=== PATIENT | male | born 1980 | race Caucasian/White ===

== ENCOUNTER 2017-08-01 23:03 | Emergency (ER) | payer SELFPAY ==
[2017-08-01 23:52] LABS: #Basophils 0.2 thou/uL (0.0-0.2); #Eosinphils 0.5 thou/uL (0.0-0.7); #Lymphocytes 3.5 thou/uL (1.20-3.40); #Monocytes 0.6 thou/uL (0.11-0.59); #Neutrophils 7.9 thou/uL (1.40-6.50); %Basophils 1.3 % (0.0-1.0); %Eosinophils 3.8 % (0.0-10.0); %Lymphocytes 27.5 % (21.0-51.0); %Monocytes 4.5 % (0.0-10.0); Mean Platelet Volume 7.5 fL (7.4-10.4); Red Blood Cell (RBC) Count 4.87 mill/uL (4.70-6.10); White Blood Cell (WBC) Count 12.6 thou/uL (4.8-10.8)
[2017-08-02 00:01] LABS: Bilirubin Negative (Negative); Blood, Urine Negative (Negative); Glucose, Urine (Dipstick) Negative (Negative); Ketone, Urine Negative (Negative); Nitrite Negative (Negative); Protein, Urine (Dipstick) Negative (Neg-Trace); Urobilinogen 0.2 mg/dL (0.2-1.0)
[2017-08-02 00:08] LABS: ALT (SGPT) 42 U/L (8-55); AST (SGOT) 29 U/L (5-34); Alkaline Phosphatase 73 U/L (40-150); Anion Gap 15 mmol/L (10-20); BUN (Urea Nitrogen) 7 mg/dL (8.9-20.6); Bilirubin, Total 0.4 mg/dL (0.2-1.2); Calc. Creatinine Clearance 0 mL/min (70-130); Calcium 9.1 mg/dL (7.8-10.44); Carbon Dioxide 24 mmol/L (22-29); Chloride 101 mmol/L (98-107); Estimated GFR-MDRD Greater than 90; Globulin 3.4 g/dL (2.4-3.5); Lipase 20 U/L (8-78); Protein, Total 7.5 g/dL (6.0-8.3)
[2017-08-02] MEDS ORDERED: Ketorolac Tromethamine 30 MG/ML VIAL ONE (00:30)
--- NOTE | 2017-08-02 00:39 | CT ---
CT ABDOMEN AND PELVIS WITHOUT CONTRAST 08/01/17 HISTORY: Abdominal pain, diarrhea. FINDINGS: Absence of oral and IV contrast reduces the sensitivity for the exam, particularly for evaluation of the solid organs and bowel. There are ground glass infiltrates in the lung bases. There is fatty in filtration of the liver. No calcified gallstones are seen. A small fat containing umbilical hernia i s present. No free air or free fluid is seen in the abdomen or pelvis. A normal appearing appendix i s present. There is fecal material in the colon. No calculi is seen in the kidneys, ureters, or the urinary bladder. No hydroureteronephrosis is note d on either side. There are vascular calcifications without evidence of aneurysmal dilatation of the abdominal aorta. There are mild degenerative changes in the spine. IMPRESSION: 1. No CT evidence of urinary tract calculi or obstruction/appendicitis. 2. Fatty liver. 3. Ground glass infiltrates in the lung bases. POS: [facility]
== END 2017-08-02 00:35 | disposition home or self-care (01) ==
LOC: SCSER 23:03
DX: R10.11 Right upper quadrant pain (principal); E11.9 Type 2 diabetes mellitus without complications; G40.909 Epilepsy, unspecified, not intractable, without status epilepticus; F32.9 Major depressive disorder, single episode, unspecified; F17.210 Nicotine dependence, cigarettes, uncomplicated; Z79.899 Other long term (current) drug therapy
CPT/HCPCS: 74176; 80053; 81003; 83690; 85025; 96372; J1885

== ENCOUNTER 2017-09-20 15:04 | Emergency (ER) | payer SELFPAY ==
[2017-09-20] MEDS ORDERED: Ondansetron HCl/PF 4 MG/2 ML Vial ONE (15:48)
[2017-09-20] MEDS ORDERED: Morphine 4 MG/ML Carpuject ONE (15:48)
[2017-09-20 15:52] LABS: #Basophils 0.2 thou/uL (0.0-0.2); #Eosinphils 0.7 thou/uL (0.0-0.7); #Monocytes 0.7 thou/uL (0.11-0.59); #Neutrophils 5.3 thou/uL (1.40-6.50); %Basophils 1.9 % (0.0-1.0); %Eosinophils 7.3 % (0.0-10.0); %Lymphocytes 30.2 % (21.0-51.0); Hematocrit 43.2 % (42.0-52.0); Mean Platelet Volume 11.3 fL (7.4-10.4); Red Blood Cell (RBC) Count 4.73 mill/uL (4.70-6.10); White Blood Cell (WBC) Count 9.8 thou/uL (4.8-10.8)
--- NOTE | 2017-09-20 16:03 | RAD ---
PA AND LATERAL OF THE CHEST 09/20/17 INDICATION: Left sided chest pain. Cough. FINDINGS: There is stable cardiomegaly. No air space consolidation or pleural effusion is evident. Osseous stru ctures appear similar to the comparison dated 06/27/17. IMPRESSION: Stable mild cardiomegaly. POS: [facility]
[2017-09-20 16:04] LABS: Troponin I Less than 0.010 ng/mL (< 0.028)
[2017-09-20] MEDS ORDERED: Ketorolac Tromethamine 30 MG/ML VIAL ONE (16:16)
[2017-09-20 16:21] LABS: ALT (SGPT) 44 U/L (8-55); AST (SGOT) 28 U/L (5-34); Alkaline Phosphatase 70 U/L (40-150); Anion Gap 15 mmol/L (10-20); BUN (Urea Nitrogen) 13 mg/dL (8.9-20.6); Bilirubin, Total 0.2 mg/dL (0.2-1.2); Calc. Creatinine Clearance 0 mL/min (70-130); Calcium 9.6 mg/dL (7.8-10.44); Carbon Dioxide 20 mmol/L (22-29); Chloride 107 mmol/L (98-107); Estimated GFR-MDRD Greater than 90; Globulin 3.5 g/dL (2.4-3.5); Protein, Total 7.5 g/dL (6.0-8.3)
== END 2017-09-20 16:40 | disposition home or self-care (01) ==
LOC: SCSER 15:04
DX: R07.89 Other chest pain (principal); E11.9 Type 2 diabetes mellitus without complications; G40.909 Epilepsy, unspecified, not intractable, without status epilepticus; F32.9 Major depressive disorder, single episode, unspecified; F17.210 Nicotine dependence, cigarettes, uncomplicated; K56.609 Unspecified intestinal obstruction, unspecified as to partial versus complete obstruction
CPT/HCPCS: 71020; 80053; 82553; 84484; 85025; 93005; 96374; 96375; 99406; J1885; J2270; J2405

== ENCOUNTER 2017-10-25 03:30 | Observation (INO) | payer SELFPAY ==
[2017-10-25] MEDS ORDERED: Ketorolac Tromethamine 30 MG/ML VIAL ONE (03:52)
[2017-10-25] MEDS ORDERED: Ondansetron HCl/PF 4 MG/2 ML Vial ONE (03:52)
[2017-10-25 04:17] LABS: #Basophils 0.2 thou/uL (0.0-0.2); #Eosinphils 0.6 thou/uL (0.0-0.7); #Lymphocytes 3.7 thou/uL (1.20-3.40); #Monocytes 1.1 thou/uL (0.11-0.59); #Neutrophils 8.2 thou/uL (1.40-6.50); %Basophils 1.6 % (0.0-1.0); %Eosinophils 4.4 % (0.0-10.0); %Lymphocytes 26.8 % (21.0-51.0); %Neutrophils 59.2 % (42.0-75.0); Hemoglobin 15.5 g/dL (14.0-18.0); Mean Corpuscular Hemoglobin 31.6 pg (27.0-31.0); Mean Corpuscular Volume 95.8 fl (80.0-94.0); Platelet Count 298 thou/uL (130-400); RBC Distribution Width 12.1 % (11.5-14.5); Red Blood Cell (RBC) Count 4.92 mill/uL (4.70-6.10); White Blood Cell (WBC) Count 13.8 thou/uL (4.8-10.8)
[2017-10-25 04:20] LABS: Bilirubin Negative (Negative); Blood, Urine Negative (Negative); Clarity Clear (Clear); Glucose, Urine (Dipstick) Negative (Negative); Leukocyte Trace (Negative); Nitrite Negative (Negative); Protein, Urine (Dipstick) Negative (Neg-Trace); Urobilinogen 0.2 mg/dL (0.2-1.0)
[2017-10-25 04:23] LABS: ALT (SGPT) 39 U/L (8-55); AST (SGOT) 22 U/L (5-34); Albumin 4.1 g/dL (3.5-5.0); Alkaline Phosphatase 66 U/L (40-150); Anion Gap 16 mmol/L (10-20); BUN (Urea Nitrogen) 8 mg/dL (8.9-20.6); Bilirubin, Total 0.2 mg/dL (0.2-1.2); Calc. Creatinine Clearance 0 mL/min (70-130); Calcium 9.2 mg/dL (7.8-10.44); Carbon Dioxide 21 mmol/L (22-29); Chloride 105 mmol/L (98-107); Estimated GFR-MDRD Greater than 90; Globulin 3.3 g/dL (2.4-3.5); Glucose 126 mg/dL (70-105); Potassium 3.5 mmol/L (3.5-5.1); Protein, Total 7.4 g/dL (6.0-8.3); Sodium 138 mmol/L (136-145)
[2017-10-25 04:28] LABS: Bacteria/HPF None Seen HPF (None Seen); Hyaline Casts/LPF 0-3 HYALINE CAST LPF (0-3 Hyaline); RBC/HPF 0-3 HPF (0-3); Squamous Epithelial 0-3 HPF (0-3); WBC/HPF 0-3 HPF (0-3)
[2017-10-25] MEDS ORDERED: Morphine 4 MG/ML Carpuject ONE (04:52)
[2017-10-25] MEDS ORDERED: cefTRIAXone\\ROCEPHIN 2 GM VIAL ONE (05:11)
[2017-10-25] MEDS ORDERED: Sodium Chloride 0.9% 0 ML ONE (05:12)
[2017-10-25] MEDS ORDERED: Sodium Chloride 0.9% 100 ML ONE (05:15)
[2017-10-25 06:30] VITALS: BMI 41.2
[2017-10-25] MEDS ORDERED: Sodium Chloride 0.9% 1,000 ML IV SCH (06:30)
[2017-10-25] MEDS ORDERED: Ondansetron ODT 4 MG TAB SL PRN (06:30)
[2017-10-25] MEDS ORDERED: HYDROcodone/Acetaminophen 5/325 mg Tablet PO PRN ×2 (06:30)
[2017-10-25] MEDS ORDERED: Ondansetron HCl/PF 4 MG/2 ML Vial IVP PRN ×2 (06:30→08:07)
[2017-10-25] MEDS ORDERED: Acetaminophen 325 MG TAB PO PRN ×2 (06:30→08:07)
[2017-10-25 08:07] LABS: Lactic Acid 1.7 mmol/L (0.5-2.2)
[2017-10-25] MEDS ORDERED: Dextrose 5% in Water 1,000 ML IV PRN (08:07)
[2017-10-25] MEDS ORDERED: HYDROcodone/Acetaminophen 10/325 mg Tablet PO PRN (08:07)
[2017-10-25] MEDS ORDERED: Ondansetron ODT 4 MG TAB PO PRN (08:07)
[2017-10-25] MEDS ORDERED: Dextrose 50% Abboject 50 ML SYRINGE SLOW IVP PRN (08:07)
[2017-10-25] MEDS ORDERED: HumaLOG 300 UNITS/3 ML VIAL SC PRN (08:07)
[2017-10-25] MEDS ORDERED: Enoxaparin Sodium 40 MG/0.4 ML SYRINGE SC SCH (08:30)
[2017-10-25] MEDS ORDERED: Famotidine 20 MG TAB PO SCH (09:00)
[2017-10-25] MEDS: Sodium Chloride 0.9% 1,000 ML IV SCH ×2 (09:08→16:26)
[2017-10-25] MEDS: HYDROcodone/Acetaminophen 5/325 mg Tablet PO PRN ×2 (09:08→13:10)
--- NOTE | 2017-10-25 10:35 | ULT ---
BILATERAL RENAL ULTRASOUND: History: CVA tenderness. History of stones. Diagnosed with pyelonephritis. Date: 10-25-17 Technique: Multiple longitudinal and transverse images of the kidneys and bladder obtained using a mu ltihertz curvilinear transducer. FINDINGS: Real-time and color flow images demonstrate both kidneys to be of normal contour, axis and side. Righ t kidney measures 11.3 and 12.2 cm from [id number]. No evidence of renal parenchymal masses or lesi ons seen. No evidence of hydronephrosis seen. The bladder is unremarkable. Bladder volume has 3D reggie urements of 68 ml. IMPRESSION: Normal renal ultrasound. No evidence of hydronephrosis or renal mass. POS: [facility]
--- NOTE | 2017-10-25 16:51 | DIS ---
DATE OF ADMISSION: 10/25/2017 DATE OF DISCHARGE: 10/25/2017 PRIMARY CARE PHYSICIAN: Arely Wall M.D. DISCHARGE DIAGNOSES: 1. Paraspinous muscle spasm. 2. History of renal stones, but no current stones visualized. 3. Diabetes mellitus type 2, insulin-dependent. 4. History of pseudoseizures. 5. Depression/anxiety with history of panic attacks. CONSULTATIONS: None. PROCEDURES: Renal ultrasound done on 10/25/2017 had showed normal kidneys, no obstruction, no sign o f stones. HISTORY AND PHYSICAL: Mr. Batres is a 36-year-old gentleman, transferred here from [facility] for direct admission for pyelonephritis. Workup there showed an elevated white count and lac tic acid 3.1. The patient had some bilateral flank pain and anorexia, not eating or drinking well. HOSPITAL COURSE: The patient was seen and examined on arrival. He had some right paraspinous muscle tenderness to palpation, but no CVA tenderness farther out. Urinalysis review was negative. The re nal ultrasound was obtained that showed normal kidneys, no hydronephrosis, and no evidence of stones. He had a fully empty bladder. The patient was watched the day. His pain was well controlled. He was tolerating p.o. well and was ambulating in the hallways. Nursing was otherwise stable for discharge with outpatient followup. PHYSICAL EXAMINATION: The patient was seen and examined on the day of discharge. Discharge plan and disposition were discussed with the patient [id number] at the bedside. DISCHARGE MEDICATIONS: 1. Albuterol MDI 2 puffs q.6 hours as needed. 2. Quetiapine as taken at home. 3. Albuterol nebs p.r.n. 4. Klonopin 0.25 mg daily p.r.n. 5. Hydroxyzine 50 mg p.o. t.i.d. p.r.n. DISCHARGE CONDITION: Stable. DISPOSITION: Will be discharged home via private vehicle. FOLLOWUP APPOINTMENTS: Primary care physician Dr. Wall within a week. DISCHARGE ACTIVITY: As tolerated. DISCHARGE DIET: Diabetic diet recommended.
[2017-10-25 16:52] VITALS: BP 117/81; TEMP 98.3
--- NOTE | 2017-10-25 19:48 | HP ---
PRIMARY CARE PHYSICIAN: Dr. Arely Wall. CHIEF COMPLAINT: Dysuria and gland swelling. HISTORY OF PRESENT ILLNESS: Mr. Batres is a 36-year-old white male with history of diabetes, seizure disorder, that has been further identify the pseudoseizures/conversion, panic attacks, depression/an xiety, and renal stones with his last done about 8 months ago. He presented to the Emergency Department at the [facility] ER for complaints of hematuria, increased frequency, dysuria, and bilateral flank pain. This symptoms started about 2 weeks ago. He saw his PCP was started on antibiotic about 6 days ago, but had increased symptoms. He started having aching in his back with abdominal pain and chills, whe n further delineated seemed to be occasional shutter, but no rigors. Complaining of bilateral flank pain right more than left with tenderness and decreased appetite, who presents to the Emergency Depar tment for evaluation. There, white blood cell count was 13.8 with a fairly normal differential. Chemistries are normal. U rinalysis negative. The lactic acid 3.1. No imaging was done and he was transferred here for a clin ical diagnosis of pyelonephritis. Since arrival here, he has had no fevers. PAST MEDICAL HISTORY: 1. Diabetes mellitus type 2. 2. Seizure disorder/pseudoseizures and no true seizures. 3. Panic attacks. 4. Depression/anxiety. 5. Renal stones. PAST SURGICAL HISTORY: Left arm repair. HOME MEDICATIONS: 1. Albuterol MDI 2 puffs q.6 hours p.r.n. 2. Quetiapine prescribed 300 mg p.o. at bedtime and 50 mg p.o. q.a.m., he just takes 350 once a day. 2. Albuterol nebs as needed. 3. Klonopin 0.25 mg p.o. daily as needed for anxiety. 4. Hydroxyzine 50 mg p.o. t.i.d. p.r.n. itching. ALLERGIES: PENICILLIN cause rash, IODINE via CT contrast causes massive edema, and SHELLFISH causes facial swelling. FAMILY HISTORY: Negative for clotting or bleeding disorder, no immune dysfunction. SOCIAL HISTORY: Negative for alcohol or IV drugs. Does smoke about a pack per day from the last 25 years. REVIEW OF SYSTEMS: A 10-point review of systems was performed, negative for other systems except ana cristina t as per HPI. PHYSICAL EXAMINATION: VITAL SIGNS: Temperature 98.0, pulse 98 initially 124 on arrival to the ER. Blood pressure 124/81, respiratory 18, satting 98% on room air. GENERAL: He is awake. He is alert. He is oriented x3. He is a slightly obese white male, appears to be in no acute distress. HEENT: Normocephalic, atraumatic. Pupils are equal, round, reactive to light bilaterally, mucous me mbrane moist. He had no visible lesions. No thrush. NECK: Supple, without lymphadenopathy, JVD, or thyromegaly. He has normal carotid upstrokes without bruits. LUNGS: Clear. No wheezes, no rales, no rhonchi. Good air movement. Excellent chest excursion. No prolonged expiratory phase. CARDIOVASCULAR: Normal S1 and S2. No S3 or S4. No audible murmurs. ABDOMEN: He does have CVA tenderness to light palpation. Certainly more on the right paraspinous ar ea than the left and not farther out. EXTREMITIES: No cyanosis, no clubbing, no edema. 2+ peripheral pulses, dorsalis pedis and posterior tibial arteries. SKIN: Warm, moist, and well-perfused. No rash or lesions. NEUROLOGIC: Shows cranial nerves II through XII grossly intact. He has normal speech pattern, 5/5 s trength. No focal deficits. MUSCULOSKELETAL: Normal to inspection. He has no spinal tenderness. No inflammation of the large j oints and no palpable effusions. LABORATORY DATA: CMP is completely normal. Creatinine 0.86, sodium 138, potassium 3.5, BUN of 8, gl ucose of 126. The liver function completely normal. CBC showed a white count of 13.8, hemoglobin 15.5, hematocrit 47.1, platelet count 298,000. Urinalys is negative for UTI. Lactic acid 3.1 on presentation, 1.7 on recheck on arrival. RADIOGRAPHIC STUDIES: Ultrasound of the kidneys has been ordered. ASSESSMENT AND PLAN: 1. Right flank pain, I doubt this is a urinary tract infection with a negative urine unless he has g ot an obstructive uropathy. He did have a history of stones. We will get an ultrasound to rule out obstruction or hydronephrosis. Renal function at this point is normal. We will give him intravenous fluids for now. He is eating a diet right now without any difficulty. If studies were negative, we will likely let him go home later this afternoon. 2. Diabetes mellitus type 2. We will continue home medications, sliding scale insulin. 3. History of pseudoseizures. 4. History of panic attacks/anxiety on Klonopin will continue. 5. History of renal stones as above.
== END 2017-10-25 17:00 | disposition home or self-care (01) ==
LOC: SCSER 03:30 → INTOOBSV 05:47 → T4-A 05:47
PROVIDERS: ADMIT Internal Medicine; ATTEND Internal Medicine
DX: M62.838 Other muscle spasm (principal); E11.9 Type 2 diabetes mellitus without complications; F32.9 Major depressive disorder, single episode, unspecified; F41.9 Anxiety disorder, unspecified; F41.0 Panic disorder [episodic paroxysmal anxiety]; G40.89 Other seizures; R30.0 Dysuria; F17.200 Nicotine dependence, unspecified, uncomplicated; R10.9 Unspecified abdominal pain; Z79.2 Long term (current) use of antibiotics; Z79.899 Other long term (current) drug therapy; Z91.041 Radiographic dye allergy status; Z88.0 Allergy status to penicillin; Z91.013 Allergy to seafood; Z98.890 Other specified postprocedural states; Z87.442 Personal history of urinary calculi
CPT/HCPCS: 36415; 36416; 76770; 80053; 81003; 81015; 83605; 85025; 87040; 87086; 96361; 96365; 96372; 96374; 96375; G0378; J0696; J1650; J1885; J2270; J2405; J7050

== ENCOUNTER 2017-11-02 00:37 | Emergency (ER) | payer SELFPAY ==
[2017-11-02 01:20] LABS: Bilirubin Negative (Negative); Blood, Urine Negative (Negative); Clarity Clear (Clear); Glucose, Urine (Dipstick) Negative (Negative); Leukocyte Negative (Negative); Nitrite Negative (Negative); Protein, Urine (Dipstick) Negative (Neg-Trace); Specific Gravity, Urine 1.015 (1.005-1.030); Urobilinogen 0.2 mg/dL (0.2-1.0); pH, Urine 5.5 (5.0-9.0)
[2017-11-02] MEDS ORDERED: Ketorolac Tromethamine 60 MG/2 ML VIAL ONE (01:22)
[2017-11-02 01:49] LABS: #Basophils 0.1 thou/uL (0.0-0.2); #Eosinphils 0.3 thou/uL (0.0-0.7); #Lymphocytes 2.7 thou/uL (1.20-3.40); #Monocytes 0.6 thou/uL (0.11-0.59); #Neutrophils 6.2 thou/uL (1.40-6.50); %Basophils 0.8 % (0.0-1.0); %Eosinophils 3.5 % (0.0-10.0); %Lymphocytes 27.2 % (21.0-51.0); %Monocytes 5.8 % (0.0-10.0); %Neutrophils 62.7 % (42.0-75.0); Hemoglobin 15.3 g/dL (14.0-18.0); Mean Corpuscular HGB CONC 33.9 g/dL (32.0-36.0); Mean Corpuscular Volume 91.3 fl (80.0-94.0); Mean Platelet Volume 7.2 fL (7.4-10.4); Platelet Count 293 thou/uL (130-400); RBC Distribution Width 11.7 % (11.5-14.5); Red Blood Cell (RBC) Count 4.95 mill/uL (4.70-6.10); White Blood Cell (WBC) Count 9.9 thou/uL (4.8-10.8)
[2017-11-02 02:00] LABS: Anion Gap 18 mmol/L (10-20); BUN (Urea Nitrogen) 9 mg/dL (8.9-20.6); Calc. Creatinine Clearance 0 mL/min (70-130); Calcium 9.6 mg/dL (7.8-10.44); Carbon Dioxide 21 mmol/L (22-29); Chloride 103 mmol/L (98-107); Estimated GFR-MDRD Greater than 90; Glucose 188 mg/dL (70-105); Potassium 3.7 mmol/L (3.5-5.1); Sodium 138 mmol/L (136-145)
== END 2017-11-02 03:13 | disposition home or self-care (01) ==
LOC: SCSER 00:37
DX: E11.65 Type 2 diabetes mellitus with hyperglycemia (principal); R10.12 Left upper quadrant pain; G40.909 Epilepsy, unspecified, not intractable, without status epilepticus; F41.9 Anxiety disorder, unspecified; F17.210 Nicotine dependence, cigarettes, uncomplicated; Z79.899 Other long term (current) drug therapy
CPT/HCPCS: 80048; 81003; 85025; 87086; 96372; J1885

== ENCOUNTER 2017-11-12 23:31 | Emergency (ER) | payer SELFPAY ==
[2017-11-12 23:59] LABS: Bilirubin Negative (Negative); Blood, Urine Negative (Negative); Clarity Clear (Clear); Glucose, Urine (Dipstick) Negative (Negative); Leukocyte Trace (Negative); Nitrite Negative (Negative); Protein, Urine (Dipstick) Negative (Neg-Trace); Urobilinogen 0.2 mg/dL (0.2-1.0)
[2017-11-13 00:04] LABS: Bacteria/HPF None Seen HPF (None Seen); Hyaline Casts/LPF 0-3 HYALINE CAST LPF (0-3 Hyaline); RBC/HPF 0-3 HPF (0-3); Squamous Epithelial 0-3 HPF (0-3); WBC/HPF 0-3 HPF (0-3)
== END 2017-11-13 00:38 | disposition home or self-care (01) ==
LOC: SCSER 23:31
DX: R30.0 Dysuria (principal); E11.9 Type 2 diabetes mellitus without complications; F41.0 Panic disorder [episodic paroxysmal anxiety]; F32.9 Major depressive disorder, single episode, unspecified; F17.210 Nicotine dependence, cigarettes, uncomplicated; Z71.6 Tobacco abuse counseling; Z79.899 Other long term (current) drug therapy
CPT/HCPCS: 81003; 81015; 99406

== ENCOUNTER 2017-11-21 23:11 | Emergency (ER) | payer SELFPAY ==
[2017-11-21] MEDS ORDERED: diphenhydrAMINE 50 MG/ML VIAL ONE (23:53)
[2017-11-21] MEDS ORDERED: Prochlorperazine 10 MG/2 ML VIAL ONE (23:53)
[2017-11-21] MEDS ORDERED: Ketorolac Tromethamine 30 MG/ML VIAL ONE (23:53)
== END 2017-11-22 00:43 | disposition home or self-care (01) ==
LOC: SCSER 23:11
DX: G43.909 Migraine, unspecified, not intractable, without status migrainosus (principal); F17.210 Nicotine dependence, cigarettes, uncomplicated; E11.9 Type 2 diabetes mellitus without complications; F41.0 Panic disorder [episodic paroxysmal anxiety]; F32.9 Major depressive disorder, single episode, unspecified; Z79.899 Other long term (current) drug therapy
CPT/HCPCS: 96365; 96375; 99406; J0780; J1200; J1885

== ENCOUNTER 2017-11-25 20:49 | Emergency (ER) | payer SELFPAY ==
--- NOTE | 2017-11-25 21:41 | RAD ---
PORTABLE CHEST: History: Cough, wheezing. Comparison: 03-14-17 FINDINGS: Heart size and mediastinum are within normal limits. The lungs are clear of focal infiltrates. No sig nificant bony findings. IMPRESSION: No active intrathoracic disease. POS: [facility]
== END 2017-11-25 21:50 | disposition home or self-care (01) ==
LOC: SCSER 20:49
DX: J06.9 Acute upper respiratory infection, unspecified (principal); F41.9 Anxiety disorder, unspecified; F32.9 Major depressive disorder, single episode, unspecified; F17.210 Nicotine dependence, cigarettes, uncomplicated
CPT/HCPCS: 71045; 93005

== ENCOUNTER 2017-12-29 03:56 | Emergency (ER) | payer SELFPAY ==
[2017-12-29 04:26] LABS: #Basophils 0.3 thou/uL (0.0-0.2); #Eosinphils 0.6 thou/uL (0.0-0.7); #Lymphocytes 3.7 thou/uL (1.20-3.40); #Neutrophils 10.3 thou/uL (1.40-6.50); %Basophils 1.7 % (0.0-1.0); %Eosinophils 3.6 % (0.0-10.0); %Lymphocytes 23.5 % (21.0-51.0); %Monocytes 6.1 % (0.0-10.0); %Neutrophils 65.1 % (42.0-75.0); Hemoglobin 14.2 g/dL (14.0-18.0); Mean Corpuscular HGB CONC 35.7 g/dL (32.0-36.0); Mean Corpuscular Hemoglobin 32.1 pg (27.0-31.0); Mean Corpuscular Volume 89.8 fl (80.0-94.0); Mean Platelet Volume 7.7 fL (7.4-10.4); Platelet Count 256 thou/uL (130-400); RBC Distribution Width 11.9 % (11.5-14.5); Red Blood Cell (RBC) Count 4.42 mill/uL (4.70-6.10); White Blood Cell (WBC) Count 15.8 thou/uL (4.8-10.8)
[2017-12-29 04:40] LABS: ALT (SGPT) 37 U/L (8-55); AST (SGOT) 22 U/L (5-34); Albumin 3.9 g/dL (3.5-5.0); Alkaline Phosphatase 70 U/L (40-150); Anion Gap 16 mmol/L (10-20); BUN (Urea Nitrogen) 8 mg/dL (8.9-20.6); Bilirubin, Total 0.3 mg/dL (0.2-1.2); CK (CPK) 94 U/L (30-200); Calc. Creatinine Clearance 0 mL/min (70-130); Calcium 9.1 mg/dL (7.8-10.44); Carbon Dioxide 22 mmol/L (22-29); Chloride 103 mmol/L (98-107); Estimated GFR-MDRD Greater than 90; Globulin 3.2 g/dL (2.4-3.5); Glucose 155 mg/dL (70-105); Potassium 3.8 mmol/L (3.5-5.1); Protein, Total 7.1 g/dL (6.0-8.3); Sodium 137 mmol/L (136-145)
[2017-12-29 04:42] LABS: CKMB 0.5 ng/mL (0-6.6); Troponin I Less than 0.010 ng/mL (< 0.028)
--- NOTE | 2017-12-29 08:44 | RAD ---
UPRIGHT PORTABLE CHEST 1 VIEW: HISTORY: A 37-year-old male with a history of chest pain. COMPARISON: 11/25/17. FINDINGS: Exam is somewhat underexposed because of large body habitus. Monitor leads overlie the chest. Heart size is within normal limits. No confluent pneumonia, overt edema, or pleural effusion. IMPRESSION: No acute intrathoracic disease. POS: [facility]
== END 2017-12-29 04:52 | disposition home or self-care (01) ==
LOC: SCSER 03:56
DX: J06.9 Acute upper respiratory infection, unspecified (principal); E11.9 Type 2 diabetes mellitus without complications; F41.9 Anxiety disorder, unspecified; F17.210 Nicotine dependence, cigarettes, uncomplicated; Z79.899 Other long term (current) drug therapy
CPT/HCPCS: 71045; 80053; 82553; 84484; 85025; 93005

== ENCOUNTER 2018-01-09 18:40 | Emergency (ER) | payer SELFPAY ==
[2018-01-09 19:17] LABS: #Basophils 0.3 thou/uL (0.0-0.2); #Eosinphils 0.5 thou/uL (0.0-0.7); #Lymphocytes 3.7 thou/uL (1.20-3.40); #Monocytes 0.9 thou/uL (0.11-0.59); #Neutrophils 10.9 thou/uL (1.40-6.50); %Basophils 1.9 % (0.0-1.0); %Eosinophils 3.1 % (0.0-10.0); %Lymphocytes 22.7 % (21.0-51.0); %Monocytes 5.6 % (0.0-10.0); %Neutrophils 66.8 % (42.0-75.0); Hemoglobin 15.7 g/dL (14.0-18.0); Mean Corpuscular HGB CONC 33.6 g/dL (32.0-36.0); Mean Corpuscular Hemoglobin 30.7 pg (27.0-31.0); Mean Corpuscular Volume 91.5 fl (80.0-94.0); Mean Platelet Volume 8.9 fL (7.4-10.4); Platelet Count 298 thou/uL (130-400); RBC Distribution Width 12.3 % (11.5-14.5); Red Blood Cell (RBC) Count 5.12 mill/uL (4.70-6.10); White Blood Cell (WBC) Count 16.3 thou/uL (4.8-10.8)
[2018-01-09 19:33] LABS: Anion Gap 15 mmol/L (10-20); BUN (Urea Nitrogen) 6 mg/dL (8.9-20.6); Calc. Creatinine Clearance 0 mL/min (70-130); Calcium 9.3 mg/dL (7.8-10.44); Carbon Dioxide 23 mmol/L (22-29); Chloride 106 mmol/L (98-107); Estimated GFR-MDRD Greater than 90; Glucose 71 mg/dL (70-105); Potassium 4.2 mmol/L (3.5-5.1); Sodium 140 mmol/L (136-145)
== END 2018-01-09 20:14 | disposition home or self-care (01) ==
LOC: SCSER 18:40
DX: R25.1 Tremor, unspecified (principal); E11.9 Type 2 diabetes mellitus without complications; F41.0 Panic disorder [episodic paroxysmal anxiety]; F32.9 Major depressive disorder, single episode, unspecified; F17.210 Nicotine dependence, cigarettes, uncomplicated; Z71.6 Tobacco abuse counseling; Z79.899 Other long term (current) drug therapy
CPT/HCPCS: 36415; 80048; 84146; 85025; 99406

== ENCOUNTER 2018-01-20 00:39 | Emergency (ER) | payer SELFPAY ==
[2018-01-20] MEDS ORDERED: Acetaminophen 325 MG TAB ONE (02:04)
[2018-01-20] MEDS ORDERED: Ketorolac Tromethamine 30 MG/ML VIAL ONE (02:04)
[2018-01-20] MEDS ORDERED: HYDROcodone/Acetaminophen 10/325 mg Tablet ONE (03:18)
[2018-01-20] MEDS ORDERED: Gabapentin 300 MG CAP PO SCH (04:15)
--- NOTE | 2018-01-20 11:32 | CT ---
PRELIMINARY REPORT/[facility]/EMERGENCY AFTER HOURS PROCEDURE: EXAM: CT Maxillofacial Without Intravenous Contrast CLINICAL HISTORY: 37 years old, male; Pain; Jaw pain and nose pain; Patient HX: Er 5; Rt tmj pain; , Pt reports ear kendra n with throbbing/ringing noise that started around midnight. TECHNIQUE: Axial computed tomography images of the face without intravenous contrast. COMPARISON: No relevant prior studies available. FINDINGS: Bones/joints: No acute fracture. Multiple periapical lucencies in the maxilla noted Soft tissues: Unremarkable. Orbits: Unremarkable. Sinuses: Polypoid mucosal thickening in the right frontal sinus and possible tiny air fluid level. Minimal mucosal thickening in the right maxillary sinus IMPRESSION: Presumed inflammatory changes in the right frontal and maxillary sinuses. No definite radiographic correlation to the patient's clinical complaint is identified Thank you for allowing us to participate in the care of your patient. Dictated and Authenticated by: Michael Finley MD 01/20/2018 4:33 AM Central Time ([place] & [place]) FINAL REPORT CT FACE NONCONTRAST PERFORMED ON AN EMERGENCY BASIS: Date: 01/20/18 Time: 0416 hours HISTORY: Jaw pain. Facial pain. FINDINGS: Findings agree with the preliminary report by Luis Manuel. No acute osseous abnormalities are demonstrated. Mild mucosal thickening is associated with the right paranasal sinuses. POS: [facility]
== END 2018-01-20 04:50 | disposition home or self-care (01) ==
LOC: ERS 00:39
DX: E11.9 Type 2 diabetes mellitus without complications; I48.91 Unspecified atrial fibrillation; F41.0 Panic disorder [episodic paroxysmal anxiety]; Z79.899 Other long term (current) drug therapy; F17.210 Nicotine dependence, cigarettes, uncomplicated; M26.621 Arthralgia of right temporomandibular joint; G40.909 Epilepsy, unspecified, not intractable, without status epilepticus
CPT/HCPCS: 70486; 96372; J1885

== ENCOUNTER 2018-03-10 04:41 | Emergency (ER) | payer SELFPAY ==
[2018-03-10] MEDS ORDERED: Ondansetron ODT 4 MG TAB ONE (05:06)
[2018-03-10] MEDS ORDERED: Ketorolac Tromethamine 60 MG/2 ML VIAL ONE (05:06)
[2018-03-10 05:18] LABS: #Basophils 0.2 thou/uL (0.0-0.2); #Eosinphils 0.5 thou/uL (0.0-0.7); #Lymphocytes 3.7 thou/uL (1.20-3.40); #Monocytes 1.2 thou/uL (0.11-0.59); #Neutrophils 9.1 thou/uL (1.40-6.50); %Basophils 1.6 % (0.0-1.0); %Eosinophils 3.1 % (0.0-10.0); %Monocytes 8.3 % (0.0-10.0); Hemoglobin 15.3 g/dL (14.0-18.0); Mean Corpuscular HGB CONC 35.7 g/dL (32.0-36.0); Mean Corpuscular Hemoglobin 32.7 pg (27.0-31.0); Mean Corpuscular Volume 91.7 fl (80.0-94.0); Mean Platelet Volume 8.6 fL (7.4-10.4); Platelet Count 276 thou/uL (130-400); RBC Distribution Width 12.1 % (11.5-14.5); Red Blood Cell (RBC) Count 4.67 mill/uL (4.70-6.10); White Blood Cell (WBC) Count 14.6 thou/uL (4.8-10.8)
[2018-03-10 05:32] LABS: ALT (SGPT) 42 U/L (8-55); AST (SGOT) 25 U/L (5-34); Albumin 4.2 g/dL (3.5-5.0); Alkaline Phosphatase 72 U/L (40-150); Anion Gap 16 mmol/L (10-20); BUN (Urea Nitrogen) 9 mg/dL (8.9-20.6); Bilirubin, Total 0.3 mg/dL (0.2-1.2); Calc. Creatinine Clearance 0 mL/min (70-130); Calcium 9.7 mg/dL (7.8-10.44); Carbon Dioxide 20 mmol/L (22-29); Chloride 107 mmol/L (98-107); Estimated GFR-MDRD Greater than 90; Globulin 3.4 g/dL (2.4-3.5); Glucose 91 mg/dL (70-105); Lipase 42 U/L (8-78); Potassium 3.8 mmol/L (3.5-5.1); Protein, Total 7.6 g/dL (6.0-8.3); Sodium 139 mmol/L (136-145); Troponin I 0.094 ng/mL (< 0.028)
[2018-03-10] MEDS ORDERED: HYDROcodone/Acetaminophen 5/325 mg Tablet ONE ×2 (05:52→08:49)
[2018-03-10] MEDS ORDERED: Famotidine/PF 20 mg/2ml Vial ONE (06:29)
[2018-03-10] MEDS ORDERED: Mag-Al Plus 1200 MG/1200 MG/120 MG/30 ML UDCUP ONE (06:29)
[2018-03-10] MEDS ORDERED: Lidocaine Viscous Sol 2% 15 ml UD Cup ONE (06:29)
[2018-03-10] MEDS ORDERED: Water For Inject, Bacteriostat 30 ML ONE (06:44)
[2018-03-10] MEDS ORDERED: methylPREDNISolone Sod Succ/PF 125 MG/2 ML VIAL ONE (06:44)
[2018-03-10] MEDS ORDERED: diphenhydrAMINE 50 MG/ML VIAL ONE (06:44)
[2018-03-10] MEDS ORDERED: Iopamidol 370 76% 100 ML VIAL ONE ×2 (09:00)
--- NOTE | 2018-03-10 09:06 | CT ---
ABDOMEN CT WITH CONTRAST PELVIC CT WITH CONTRAST: COMPARISON: 08/07/16. HISTORY: Right upper quadrant pain. Possible hepatic mass. TECHNIQUE: Abdomen and pelvic CT are performed with IV contrast. Coronal reformatted images are submitted for i nterpretation. FINDINGS: ABDOMEN CT: Scarring and atelectasis in the lung bases. Heart size is normal. No pericardial effusion. The goyo cending thoracic aorta and abdominal aorta have a normal caliber. No periaortic fat stranding. The majority of the liver has hypoattenuation suggesting hepatic steatosis. There is focal fatty spa ring of the caudate lobe. No hepatic masses. Spleen, pancreas, and adrenal glands are unremarkable. Gallbladder is unremarkable. Subcentimeter hypodensities in the mid pole of the right kidney, similar to the previous examination. Bilaterally, no obstructive uropathy. Subcentimeter hypodensity in the mid pole left kidney is als o unchanged. No gastrohepatic, retrocrural, or periportal lymphadenopathy. No mesenteric mass, lymphadenopathy, free air, or free fluid. There is an umbilical hernia containing mesenteric fat. Mild herniation. Limited evaluation of the alimentary canal due to the lack of oral contrast. No evidence of bowel ob struction. Ileocecal junction is normal. Normal-caliber appendix. Scattered fecal material in a no ndistended, nondilated colon. PELVIC CT: No mass, lymphadenopathy, free air, or free fluid. The urinary bladder is unremarkable. No lytic or blastic lesions of the osseous structures. IMPRESSION: 1. Presumed scar or atelectasis in the lung albrecht. 2. Hepatic steatosis with fatty sparing in the caudate lobe. Findings are similar to the previous e xamination. 3. Normal-caliber appendix. POS: [facility]
--- NOTE | 2018-03-10 15:38 | ULT ---
PRELIMINARY REPORT/[facility]/EMERGENTY AFTER-HOURS PROCEDURE US Abdomen Limited, Right Upper Quadrant EXAM DATE/TIME: Exam ordered 03/10/2018 5:31 AM CLINICAL HISTORY: 37 years old, male; Pain; Other: Ruq pain, n/v TECHNIQUE: Real-time ultrasound of the right upper quadrant with image documentation. COMPARISON: No relevant prior studies available. FINDINGS: Liver: The liver is echogenic in appearance with a focal hypoechoic region possibly representing an a alice of focal fatty sparing. No intrahepatic bile duct dilation. Gallbladder: A positive sonographic Munoz sign is reported. The gallbladder is contracted limiting e valuation. No gallstones demonstrated. Common bile duct: CBD measures approximately 5 mm in diameter. No stones. No dilation. Pancreas: The pancreas appears normal. Right kidney: RIGHT kidney measures 12.9 x 5.6 x 5.1 cm. No stones. No solid mass. No hydronephrosis. IMPRESSION: 1. Limited evaluation of the gallbladder because of contraction. Positive Munoz sign may represent a cute cholecystitis however there is no cholelithiasis demonstrated. Nuclear medicine HIDA scan may be performed for further evaluation if clinically warranted. 2. Hepatic steatosis with small area of focal fatty sparing versus liver mass. Correlation with prior imaging is advised. Thank you for allowing us to participate in the care of your patient. Dictated and Authenticated by: Fortunato Howard MD 03/10/2018 6:12 AM Central Time ([place] & [place]) RIGHT UPPER QUADRANT ULTRASOUND: HISTORY: Right upper quadrant pain. COMPARISON: None. TECHNIQUE: Utilizing a Multi-Hertz transducer, sonographic imaging of the right upper quadrant was performed in the longitudinal and transverse planes. FINDINGS: This report is in agreement with the preliminary report by [facility]. There is an enlarged heterogeneous liver with a questionable area of fatty sparing or mass in the rig ht hepatic lobe. Evaluation of the gallbladder is limited due to contraction. A positive Munoz sig n is reported. Further evaluation with HIDA scan may be beneficial. POS: [facility]
== END 2018-03-10 08:49 | disposition home or self-care (01) ==
LOC: SCSER 04:41
DX: K76.0 Fatty (change of) liver, not elsewhere classified (principal); E11.9 Type 2 diabetes mellitus without complications; G40.909 Epilepsy, unspecified, not intractable, without status epilepticus; I48.91 Unspecified atrial fibrillation; F41.9 Anxiety disorder, unspecified; F17.210 Nicotine dependence, cigarettes, uncomplicated; Z79.899 Other long term (current) drug therapy
CPT/HCPCS: 74177; 76705; 80053; 82553; 83690; 84484; 85025; 93005; 96372; 96374; 96375; J1200; J1885; J2930; Q0162; S0028

== ENCOUNTER 2018-03-12 02:30 | Emergency (ER) | payer SELFPAY ==
[2018-03-12] MEDS ORDERED: Ondansetron HCl/PF 4 MG/2 ML Vial ONE ×2 (02:54→02:55)
[2018-03-12 03:23] LABS: ALT (SGPT) 40 U/L (8-55); AST (SGOT) 26 U/L (5-34); Albumin 3.8 g/dL (3.5-5.0); Alkaline Phosphatase 60 U/L (40-150); Anion Gap 15 mmol/L (10-20); BUN (Urea Nitrogen) 14 mg/dL (8.9-20.6); Bilirubin, Total 0.3 mg/dL (0.2-1.2); Calc. Creatinine Clearance 0 mL/min (70-130); Calcium 8.8 mg/dL (7.8-10.44); Carbon Dioxide 21 mmol/L (22-29); Chloride 108 mmol/L (98-107); Estimated GFR-MDRD Greater than 90; Globulin 3.1 g/dL (2.4-3.5); Glucose 86 mg/dL (70-105); Lipase 29 U/L (8-78); Potassium 3.7 mmol/L (3.5-5.1); Protein, Total 6.9 g/dL (6.0-8.3); Sodium 140 mmol/L (136-145)
[2018-03-12 03:26] LABS: Band 3 % (5-11); Eosinophils 2 % (0-10); Hemoglobin 14.7 g/dL (14.0-18.0); Lymphocytes 26 % (21-51); MDiff Complete? YES; Mean Corpuscular HGB CONC 35.7 g/dL (32.0-36.0); Mean Corpuscular Hemoglobin 32.8 pg (27.0-31.0); Mean Corpuscular Volume 91.8 fl (80.0-94.0); Monocytes 6 % (0-10); Neutrophil 58 % (42-75); Platelet Count 205 thou/uL (130-400); Reactive Lymphocytes 5 % (0-10); Red Blood Cell (RBC) Count 4.49 mill/uL (4.70-6.10); White Blood Cell (WBC) Count 14.9 thou/uL (4.8-10.8)
[2018-03-12 03:51] LABS: Bilirubin Negative (Negative); Blood, Urine Negative (Negative); Clarity Slightly Cloudy (Clear); Glucose, Urine (Dipstick) Negative (Negative); Leukocyte Negative (Negative); Nitrite Negative (Negative); Protein, Urine (Dipstick) Negative (Neg-Trace); Urobilinogen 0.2 mg/dL (0.2-1.0); pH, Urine 5.5 (5.0-9.0)
[2018-03-12 04:01] LABS: Amphetamine Not Detected (NotDetected); Barbiturates Screen Not Detected (NotDetected); Benzodiazepine Screen Not Detected (NotDetected); Cocaine Metabolite Screen Not Detected (NotDetected); Medtox Control Line Valid? VALID (VALID); Methadone Not Detected (NotDetected); Methamphetamine Not Detected (NotDetected); Opiate Screen Not Detected (NotDetected); Oxycodone Screen Not Detected (NotDetected); Phencyclidine (PCP) Not Detected (NotDetected); THC/Cannabinoid Screen Not Detected (NotDetected); Tricyclic Screen Detected (NotDetected)
== END 2018-03-12 04:18 | disposition home or self-care (01) ==
LOC: SCSER 02:30
DX: R11.2 Nausea with vomiting, unspecified (principal); R19.7 Diarrhea, unspecified; E11.9 Type 2 diabetes mellitus without complications; G40.909 Epilepsy, unspecified, not intractable, without status epilepticus; I48.91 Unspecified atrial fibrillation; F41.9 Anxiety disorder, unspecified; F17.210 Nicotine dependence, cigarettes, uncomplicated
CPT/HCPCS: 80053; 80306; 81003; 83690; 85025; 96361; 96372; 96374; J2405

== ENCOUNTER 2018-03-19 18:57 | Inpatient (IN) | payer SELFPAY ==
[2018-03-19] MEDS ORDERED: Nitroglycerin 2% Ointment 1 INCH/1 GM Packet ONE (19:13)
--- NOTE | 2018-03-19 19:20 | RAD ---
CHEST ONE VIEW: 03/19/18 COMPARISON: 12/29/17 HISTORY: Chest pain. FINDINGS: Enlarged cardiac silhouette. The pulmonary vessels and hilum are normal. Costophrenic angles are ankur r. No consolidation or mass. No pneumothorax or osseous abnormalities. IMPRESSION: Cardiomegaly. No evidence of congestive heart failure. POS: [facility]
[2018-03-19 19:27] LABS: #Basophils 0.2 thou/uL (0.0-0.2); #Eosinphils 0.4 thou/uL (0.0-0.7); #Lymphocytes 4.2 thou/uL (1.20-3.40); #Monocytes 0.6 thou/uL (0.11-0.59); #Neutrophils 6.6 thou/uL (1.40-6.50); %Basophils 1.4 % (0.0-1.0); %Eosinophils 3.4 % (0.0-10.0); %Lymphocytes 34.8 % (21.0-51.0); %Monocytes 4.9 % (0.0-10.0); %Neutrophils 55.4 % (42.0-75.0); Hemoglobin 14.7 g/dL (14.0-18.0); Mean Corpuscular HGB CONC 35.7 g/dL (32.0-36.0); Mean Corpuscular Hemoglobin 32.5 pg (27.0-31.0); Mean Corpuscular Volume 91.1 fl (80.0-94.0); Mean Platelet Volume 8.2 fL (7.4-10.4); Platelet Count 311 thou/uL (130-400); RBC Distribution Width 11.9 % (11.5-14.5); Red Blood Cell (RBC) Count 4.52 mill/uL (4.70-6.10)
[2018-03-19 19:43] LABS: ALT (SGPT) 36 U/L (8-55); AST (SGOT) 20 U/L (5-34); Albumin 3.9 g/dL (3.5-5.0); Alkaline Phosphatase 66 U/L (40-150); Anion Gap 15 mmol/L (10-20); BUN (Urea Nitrogen) 11 mg/dL (8.9-20.6); Bilirubin, Total 0.4 mg/dL (0.2-1.2); Calc. Creatinine Clearance 0 mL/min (70-130); Calcium 9.2 mg/dL (7.8-10.44); Carbon Dioxide 22 mmol/L (22-29); Chloride 105 mmol/L (98-107); Estimated GFR-MDRD Greater than 90; Globulin 3.1 g/dL (2.4-3.5); Glucose 134 mg/dL (70-105); Potassium 3.6 mmol/L (3.5-5.1); Sodium 138 mmol/L (136-145)
[2018-03-19 19:44] LABS: CKMB 0.4 ng/mL (0-6.6); Troponin I 0.252 ng/mL (< 0.028)
[2018-03-19] MEDS ORDERED: Morphine 5 MG/ML SYRINGE ONE (20:17)
[2018-03-19] MEDS ORDERED: Ondansetron ODT 4 MG TAB ONE (20:17)
[2018-03-19] MEDS ORDERED: Enoxaparin Sodium 100 MG/ML SYRINGE ONE (20:24)
[2018-03-19] MEDS ORDERED: HYDROcodone/Acetaminophen 5/325 mg Tablet ONE (22:10)
[2018-03-19 22:22] LABS: Troponin I 0.269 ng/mL (< 0.028)
[2018-03-20] MEDS ORDERED: Ondansetron HCl/PF 4 MG/2 ML Vial IVP PRN ×2 (00:02→01:54)
[2018-03-20] MEDS ORDERED: Ondansetron ODT 4 MG TAB SL PRN (00:02)
[2018-03-20] MEDS ORDERED: Acetaminophen 325 MG TAB PO PRN ×2 (00:02→01:54)
[2018-03-20] MEDS ORDERED: Morphine 4 MG/ML VIAL SLOW IVP SCH (00:15)
[2018-03-20 00:54] LABS: Troponin I 0.278 ng/mL (< 0.028)
[2018-03-20] MEDS ORDERED: Sodium Chloride 0.9% 300 ML IV SCH (01:30)
[2018-03-20] MEDS ORDERED: clonazePAM 0.5 MG TAB PO SCH (01:30)
[2018-03-20] MEDS: Ketorolac Tromethamine 30 MG/ML VIAL IVP PRN ×2 (01:32→07:50)
[2018-03-20] MEDS ORDERED: Senokot 8.6 MG TAB PO PRN (01:54)
[2018-03-20] MEDS ORDERED: HumaLOG 300 UNITS/3 ML VIAL SC PRN (01:54)
[2018-03-20] MEDS ORDERED: Mag-Al 1200 mg/1200 mg/30 ML UDCUP PO PRN (01:54)
[2018-03-20] MEDS ORDERED: Milk Of Magnesia 30 ML UDCUP PO PRN (01:54)
[2018-03-20] MEDS ORDERED: Dextrose 5% in Water 1,000 ML IV PRN (01:54)
[2018-03-20] MEDS ORDERED: Insulin Regular 300 UNITS/3 ML VIAL SC PRN (01:54)
[2018-03-20] MEDS ORDERED: Loperamide HCl 2 MG CAP PO PRN (01:54)
[2018-03-20] MEDS ORDERED: Dextrose 50% Abboject 50 ML SYRINGE SLOW IVP PRN (01:54)
[2018-03-20] MEDS ORDERED: Zolpidem Tartrate 5 MG TAB PO PRN (01:54)
[2018-03-20 02:11] LABS: Troponin I 0.228 ng/mL (< 0.028)
--- NOTE | 2018-03-20 02:41 | HP ---
PRIMARY CARE PHYSICIAN: Dr. Arely Wall. REASON FOR ADMISSION: Chest pain, elevated troponin. HISTORY OF PRESENT ILLNESS: A 37-year-old male with a history of hypertension as well as anxiety and panic disorder, who came to emergency room for evaluation of chest pain. Patient reports that he wa s admitted at [facility] for similar type of chest pain and he was diagnosed wit h a heart attack. He had a cardiac catheterization there and he is found with this three-vessel bashir nary artery disease. Subsequently, cardiovascular surgeon was consulted and the patient was given op tion of CABG. Patient got anxious and he pricked out and he left against medical advice from that ho spital. After discharge, he was continuously having crushing chest pain. He describes chest pain, s ubsternal, as well as left-sided in location, crushing in nature, 8/10 in intensity, associated with some shortness of breath. He denies any nausea, vomiting, diaphoresis. He denies any hemoptysis, fe ray, chills, or cough. He denies any calf tenderness. He denies any lower extremity edema. He was evaluated at [facility] where he had electrocardiogram, which was no rmal. His routine blood tests showed a slightly elevated troponin. The patient was treated with [place], morphine 4 mg, Zofran 4 mg, Lovenox 100 mg subcutaneous, nitropat ch was applied, aspirin 324 mg given, and DuoNeb therapy was given. After nitropatch, patient's bloo d pressure was running low and that is why we discontinued nitropatch. The patient was continued to complain of chest pain at our hospital and that is why he was given morphine that did not help his pa in significantly. Patient was having relatively low blood pressure and that is why patient was given bolus fluid. We did repeat EKG on after admission to our hospital that was also normal without any change. His troponin is slightly elevated. Patient denies any UTI symptoms. He denies any constipation, diarrhea, melena, or hematochezia. He denies any headache or focal neurological symptoms. PAST MEDICAL HISTORY: Diabetes type 2; seizure disorder/pseudoseizure; history of nephrolithiasis; c oronary artery disease, recently diagnosed. PAST SURGICAL HISTORY: Left arm repair. CURRENT HOME MEDICATIONS: Ventolin HFA 2 puffs q.6 hourly p.r.n., Klonopin 0.25 mg p.o. daily p.r.n. , Atarax 50 mg t.i.d. p.r.n., Seroquel 350 mg p.o. at bedtime. PAST PSYCHIATRIC HISTORY: Anxiety, depression, panic disorder. ALLERGIES: The patient is allergic to PENICILLIN, IODINE, SHELLFISH, SULFA DRUGS. REVIEW OF SYSTEMS: Constitutional: Weight loss or gain, ability to conduct usual activities. Skin: Rash, itching. Eyes: Double vision, pain. ENT/Mouth: Nose bleeding, neck stiffness, pain, tende rness. Cardiovascular: Palpitations, dyspnea on exertion, orthopnea. Respiratory: Shortness of br eath, wheezing, cough, hemoptysis, fever or night sweats. Gastrointestinal: Poor appetite, abdomina l pain, heartburn, nausea, vomiting, constipation, or diarrhea. Genitourinary: Urgency, frequency, dysuria, nocturia. Musculoskeletal: Pain, swelling. Neurologic/Psychiatric: Anxiety, depression. Allergy/Immunologic: Skin rash, bleeding tendency. Please see my HPI for pertinent positive and ne gative. All other review of systems reviewed and negative except as mentioned in the HPI. SOCIAL HISTORY: Patient is smoking about 1 pack per day. He denies any alcohol abuse. He denies an y other illicit drug abuse. He is . FAMILY HISTORY: No strong family history of premature coronary artery disease, stroke, or cancer. EMERGENCY ROOM COURSE: Patient is given [place] 5 mg, morphine 4 mg, Zofran 4 mg, Lovenox 100 mg, DuoN eb therapy, nitropatch, aspirin 324 mg. PHYSICAL EXAMINATION: VITAL SIGNS: On arrival, blood pressure 102/64, pulse 80, respiratory rate 18, temperature 98.2, sat uration 93% on 2 liter oxygen, weight 104.7 kilograms. GENERAL: Patient is currently alert, awake, no obvious acute distress. HEAD: Normocephalic, atraumatic. EYES: Pupils round, reactive to light. Extraocular muscle intact. ENT: Oropharynx within normal limits. Moist mucous membrane. No oral lesion, no pharyngeal erythem a, no exudate. NECK: Supple, no JVD, no thyromegaly, no carotid bruit, no jugular venous distention. LUNGS: Clear to auscultation without any rhonchi or rales. Poor air entry at base. CARDIAC: S1, S2 regular. No murmur, no gallop, no rub. ABDOMEN: Soft, bowel sounds present, nontender, nondistended. No organomegaly, no mass, no suprapub ic tenderness. Obesity present. BACK: Unremarkable. No CVA tenderness. EXTREMITIES: Upper extremity: Passive movement of all joints are normal. Lower extremities: No anant ma. Good peripheral pulsation. SKIN: No skin rash. HEMATOLOGICAL: No lymphadenopathy. PSYCHIATRIC: Normal affect. SIGNIFICANT LABORATORY NAD DIAGNOSTIC DATA: 1. EKG x2, normal sinus rhythm within normal limits. 2. CBC: WBC 12.0, hemoglobin 14.7, platelets 311,000 D-dimer 0.36. BMP: Sodium 138, potassium 3.6 , chloride 105, carbon dioxide 22, anion gap 15, BUN 11, creatinine 0.81. Glucose 134, calcium 9.2. 3. LFT: AST 20, ALT 36, alkaline phosphatase 66, albumin 3.9. 4. CK-MB 0.4, troponin I 0.252, then 0.269 and then 0.278. BNP 65.3. ASSESSMENT AND PLAN: 1. Chest pain. This patient reports that he had [place] and he was investigated at [facility] with a cardiac catheterization and found with 3-vessel coronary artery disease. At this p oint, we will try to get medical record from that hospital. We will consult Cardiology. Meanwhile, we will treat with aspirin 325 mg p.o. daily. We will check lipid profile for risk stratification an d start Lipitor 40 mg p.o. at bedtime. 2. Echocardiography will be obtained. We will monitor hemodynamics while in hospital. At this poin t, because of low blood pressure, we discontinue nitropatch. The patient already given Lovenox 1 mg per kg in the emergency room. We will continue Lovenox 1 mg per kg while in hospital as well. We wi ll monitor on telemetry floor. 3. Elevated troponin, likely due to underlying coronary artery disease. At this point, the patient is already treated with aspirin, Lovenox in the emergency room. We will consider giving him metoprol ol 12.5 mg twice daily. We will obtain echocardiography. 4. Diabetes type 2, diet controlled. We will monitor Accu-Chek a.c. and at bedtime. We will check hemoglobin A1c. 5. Anxiety, depression, panic disorder. Continue Seroquel 350 mg p.o. at bedtime, Klonopin 0.25 mg daily p.r.n. 6. Obesity with body mass index of 37. Dietary education given. Healthy lifestyle measures discuss ed with the patient. 7. Tobacco abuse disorder. Smoking cessation counseling given. Healthy lifestyle measures discusse d with the patient. 8. Deep venous thrombosis prophylaxis. The patient is already on full dose of Lovenox therapy. 9. Gastrointestinal prophylaxis. Pepcid 20 mg p.o. b.i.d. 10. Code status: The patient is FULL CODE. The patient's is surrogate decision maker. Disposition plan based on clinical course. We are expecting patient's stay in hospital more than 2 m idnights. Plan of care discussed with the patient and his at bedside.
[2018-03-20 06:00] LABS: #Eosinphils 0.5 thou/uL (0.0-0.7); #Lymphocytes 4.5 thou/uL (1.20-3.40); #Neutrophils 5.6 thou/uL (1.40-6.50); %Basophils 0.4 % (0.0-1.0); %Eosinophils 4.1 % (0.0-10.0); %Monocytes 8.7 % (0.0-10.0); %Neutrophils 47.8 % (42.0-75.0); Hemoglobin 13.3 g/dL (14.0-18.0); Mean Corpuscular HGB CONC 33.2 g/dL (32.0-36.0); Mean Corpuscular Hemoglobin 31.7 pg (27.0-31.0); Mean Corpuscular Volume 95.3 fl (80.0-94.0); Mean Platelet Volume 7.9 fL (7.4-10.4); Platelet Count 273 thou/uL (130-400); RBC Distribution Width 12.7 % (11.5-14.5); Red Blood Cell (RBC) Count 4.19 mill/uL (4.70-6.10); White Blood Cell (WBC) Count 11.6 thou/uL (4.8-10.8)
[2018-03-20 06:11] LABS: Anion Gap 14 mmol/L (10-20); BUN (Urea Nitrogen) 12 mg/dL (8.9-20.6); Calc. Creatinine Clearance 199 mL/min (70-130); Calcium 8.7 mg/dL (7.8-10.44); Carbon Dioxide 21 mmol/L (22-29); Cardiac Risk 7.1 (Less than 4.5); Chloride 104 mmol/L (98-107); Cholesterol 149 mg/dl (< 200 Desired); Estimated GFR-MDRD Greater than 90; Glucose 87 mg/dL (70-105); HDL Cholesterol 21 mg/dL (>60 Neg Risk); LDL Cholesterol, Calculated 79 mg/dL; Potassium 3.8 mmol/L (3.5-5.1); Sodium 135 mmol/L (136-145); Triglycerides 246 mg/dL (Less than 150)
[2018-03-20 06:24] LABS: Hemoglobin A1c 5.9 % (4.0-6.0)
[2018-03-20] MEDS: Nitroglycerin 0.4 MG TAB (25 Tab Bottle) PO PRN ×3 (08:35→08:56)
[2018-03-20] MEDS: Ondansetron ODT 4 MG TAB PO PRN (08:54)
[2018-03-20] MEDS: Aspirin 325 MG TAB PO SCH (08:59)
[2018-03-20] MEDS: Famotidine 20 MG TAB PO SCH ×2 (08:59→21:02)
[2018-03-20] MEDS: Metoprolol Tartrate 25 MG TAB PO SCH ×2 (08:59→21:03)
[2018-03-20] MEDS ORDERED: Morphine 4 MG/ML VIAL IV SCH ×2 (09:00→11:00)
[2018-03-20] MEDS: Enoxaparin Sodium 120 MG/0.8 ML SYRINGE SC SCH ×2 (09:03→21:02)
[2018-03-20] MEDS ORDERED: Colchicine 0.6 MG TAB PO SCH ×2 (12:45)
[2018-03-20 14:15] LABS: Cocaine Metabolite Screen Not Detected (NotDetected); Medtox Reader # READER 1; Phencyclidine (PCP) Not Detected (NotDetected); THC/Cannabinoid Screen Not Detected (NotDetected)
[2018-03-20 14:16] LABS: Amphetamine Not Detected (NotDetected); Barbiturates Screen Detected (NotDetected); Benzodiazepine Screen Not Detected (NotDetected); Medtox Control Line Valid? VALID (VALID); Methadone Not Detected (NotDetected); Methamphetamine Not Detected (NotDetected); Opiate Screen Detected (NotDetected); Oxycodone Screen Not Detected (NotDetected); Tricyclic Screen Detected (NotDetected)
[2018-03-20 18:27] LABS: Bilirubin Negative (Negative); Blood, Urine Negative (Negative); Clarity CLEAR (Clear); Glucose, Urine (Dipstick) Negative (Negative); Leukocyte Negative (Negative); Nitrite Negative (Negative); Protein, Urine (Dipstick) Negative (Neg-Trace); Specific Gravity, Urine 1.019 (1.002-1.036); Urobilinogen 0.2 mg/dL (0.2-1.0)
[2018-03-20 18:32] LABS: Bacteria/HPF None Seen HPF (None Seen); Hyaline Casts/LPF 0-3 HYALINE CAST LPF (0-3 Hyaline); Pathc Cast-AUWi Flag 0.14 (0-2.49); RBC/HPF 0-3 HPF (0-3); Squamous Epithelial 0-3 HPF (0-3); WBC/HPF None Seen HPF (0-3)
--- NOTE | 2018-03-20 19:26 | CON ---
DATE OF CONSULTATION: 03/20/2018 REASON FOR CONSULTATION: Recurrent chest pain. PRIMARY SECTION HAND HELPER: Donnie, Cardiology. HISTORY OF PRESENT ILLNESS: Mr. Yunier Batres is a 37-year-old man. He was in the hospital yesterday at [facility] in [place] and was scheduled for bypass surgery, but left agains t medical advice. Mr. Batres, who presented with chest pain to [facility] in [place] with cardiac catheter ization sent for 3-vessel disease. He left [facility] against medical advice. The patient appa rently came back and then was scheduled for surgery, but the patient left against medical advice. Th e patient was on the schedule yesterday, he refused surgery again. The patient has three-vessel coronary disease with normal left ventricular function. The patient comes back here with continuous chest pain. He said that severe. He has been given morp mei on several occasions with some improvement. Nitroglycerin does not help. He does mention that it hurts worse when he rolls around in the bed. PAST HISTORY: 1. Diabetes. 2. Smoking one pack cigarettes per day. The diabetes has been present. He said since he was in the late teens. PAST SURGICAL HISTORY: Left arm repair. CURRENT HOME MEDICINES: Ventolin inhaler, Klonopin, Atarax, and Seroquel. PSYCHIATRIC HISTORY: Anxiety and depression. ALLERGIES: PENICILLIN, IODINE, and SHELLFISH. REVIEW OF SYSTEMS: CONSTITUTIONAL: No significant weight gain or loss. HEENT: Vision: No changes. Hearing: No changes. PULMONARY: No shortness of breath. CARDIAC: Positive as outlined above. GASTROINTESTINAL: No nausea, vomiting, diarrhea. SKIN: No rashes. NEUROLOGIC: No unilateral weakness or numbness. PSYCHIATRIC: As outlined above. PHYSICAL EXAMINATION: GENERAL: This is a 37-year-old gentleman complaining of continued chest pain. VITAL SIGNS: Blood pressure 100/60, pulse 70. EYES: Sclerae nonicteric. Mouth, mucous remains moist. NECK: Supple, no lymphadenopathy. LUNGS: Clear, no wheezing, rales or rhonchi. CARDIOVASCULAR: Normal S1, normal S2. There is no murmur, rub or gallop. ABDOMEN: Soft, nontender. EXTREMITIES: There is no edema. SKIN: Warm and dry. LABORATORY AND X-RAY FINDINGS: Troponin peak 0.278, LDL 79. EKGs with chest pain are normal. ASSESSMENT: 1. Three-vessel coronary artery disease. 2. The patient unfortunately has left against medical advice prior to bypass on 2 occasions recently . 3. Current pain does not sound cardiac although he does have known 3-vessel coronary disease. PLAN: 1. Continue Lovenox. 2. We would not give further morphine. 3. He is on Toradol. 4. Give colchicine. No other recommendations currently. Dr. Carvajal is aware the patient is he re in the hospital. Please see his handwritten note.
[2018-03-20] MEDS: Atorvastatin Calcium 40 MG TAB PO SCH (21:01)
[2018-03-20] MEDS: Colchicine 0.6 MG TAB PO SCH (21:02)
[2018-03-21] MEDS: Nitroglycerin 0.4 MG TAB (25 Tab Bottle) PO PRN ×3 (06:38→15:03)
[2018-03-21] MEDS ORDERED: Sodium Chloride 0.9% 10 ML ONE ×3 (08:07→16:08)
[2018-03-21] MEDS: Famotidine 20 MG TAB PO SCH ×2 (08:40→20:40)
[2018-03-21] MEDS: Metoprolol Tartrate 25 MG TAB PO SCH (08:40)
[2018-03-21] MEDS: Aspirin 325 MG TAB PO SCH (08:40)
[2018-03-21] MEDS: Colchicine 0.6 MG TAB PO SCH ×2 (08:41→20:41)
[2018-03-21] MEDS: Enoxaparin Sodium 120 MG/0.8 ML SYRINGE SC SCH (08:42)
--- NOTE | 2018-03-21 09:20 | PRG ---
DATE OF SERVICE: 03/21/2018 SUBJECTIVE: Mr. Batres is feeling much better today. Chest pain is resolved. OBJECTIVE: VITAL SIGNS: Blood pressure 135/82 and pulse 70 and regular. LUNGS: Clear. CARDIAC: Normal S1 and S2. ASSESSMENT: 1. Three-vessel coronary artery disease. 2. Chest pain yesterday, did not seem to be cardiac in origin, ?pericardial pain versus other, seeme d to get better with the colchicine. 3. Diabetes. PLAN: 1. We will reduce enoxaparin with next dose. 2. The patient's tells me that Dr. Carvajal is going to speak with them this afternoon.
[2018-03-21] MEDS: Enoxaparin Sodium 40 MG/0.4 ML SYRINGE SC SCH ×2 (10:37→20:43)
[2018-03-21] MEDS: Ketorolac Tromethamine 30 MG/ML VIAL IVP PRN ×2 (11:07→16:12)
[2018-03-21] MEDS ORDERED: Morphine 4 MG/ML VIAL SLOW IVP SCH (11:30)
[2018-03-21] MEDS: HYDROcodone/Acetaminophen 10/325 mg Tablet PO PRN (15:11)
--- NOTE | 2018-03-21 17:34 | PDOC.PN ---
- Subjective Encounter Start Date: 03/21/18 Encounter Start Time: 09:15 Subjective: pt up in bed complains of chest pain, pt describes it as pressure like - Objective Resuscitation Status: Resuscitation Status FULL:Full Resuscitation Vital Signs & Weight: Vital Signs (12 hours) Temp Pulse Pulse Pulse Resp Resp Resp 03/21/18 16:00 97.8 F 73 16 03/21/18 12:00 98.0 F 73 16 03/21/18 08:00 98.8 F 68 18 03/21/18 06:42 03/21/18 06:13 70 71 18 16 BP BP BP Pulse Ox Pulse Ox Pulse Ox 03/21/18 16:00 117/76 95 03/21/18 12:00 116/59 L 97 03/21/18 08:00 135/82 97 03/21/18 06:42 135/82 96 03/21/18 06:13 128/91 H 127/82 98 97 Weight Weight 241 lb 3 oz I&O: 03/20/18 03/21/18 03/22/18 06:59 06:59 06:59 Intake Total 1127 Output Total 1020 Balance 107 Result Diagrams: 03/20/18 01:25 03/20/18 01:25 Additional Labs: Accuchecks 03/21/18 03/21/18 03/20/18 10:33 06:16 20:53 POC Glucose 157 H 107 119 H Phys Exam - Physical Examination HEENT: PERRLA, moist MMs, sclera anicteric, TM's clear, oral pharynx no lesions , 2+ tonsils Neck: no nodes, no JVD, supple, full ROM Respiratory: no wheezing, no rales, no rhonchi, wheezing present, clear to auscultation bilateral Cardiovascular: RRR, no significant murmur, no rub, gallop, irregular Gastrointestinal: soft, non-tender, no distention, positive bowel sounds Musculoskeletal: no edema, pulses present, edema present Dx/Plan (1) Chest pain Code(s): R07.9 - CHEST PAIN, UNSPECIFIED Status: Acute (2) Chest pain due to CAD Code(s): R07.9 - CHEST PAIN, UNSPECIFIED; I25.10 - ATHSCL HEART DISEASE OF [place] CORONARY ARTERY W/O ANG PCTRS Status: Acute (3) Obesity (BMI 30-39.9) Code(s): E66.9 - OBESITY, UNSPECIFIED Status: Chronic - Plan * . plan: pt continues to have chest pressure. Pt to be seen by cardiothorasic for CABG. Apparently pt was scheduled surgery but left AMA. There is a concern for ? drug seeking behaviour, however pt does have reasons to have chest pain. Explained to pt the importance of undergoing CABG.EF of 55-60%. Review of Systems - Review of Systems Eyes: negative: Pain, Vision Change, Conjunctivae Inflammation, Eyelid Inflammation, Redness, Other ENT: negative: Ear Pain, Ear Discharge, Nose Pain, Nose Discharge, Nose Congestion, Mouth Pain, Mouth Swelling, Throat Pain, Throat Swelling, Other Respiratory: negative: Cough, Dry, Shortness of Breath, Hemoptysis, SOB with Excertion, Pleuritic Pain, Sputum, Wheezing Cardiovascular: chest pain. negative: other Gastrointestinal: negative: Nausea, Vomiting, Abdominal Pain, Diarrhea, Constipation, Melena, Hematochezia, Other Genitourinary: negative: Dysuria, Frequency, Incontinence, Hematuria, Retention , Other - Medications/Allergies Allergies/Adverse Reactions: Allergies Allergy/AdvReac Type Severity Reaction Status Date / Time Penicillins Allergy Severe Rash Verified 10/25/17 07:41 iodine Allergy Intermediate Verified 10/25/17 07:41 shellfish derived Allergy Verified 10/25/17 07:41 Medications: Current Medications Acetaminophen (Tylenol) 650 mg PO Q4H PRN PRN Reason: Headache/Fever or Pain Hydrocodone Bitart/Acetaminophen ([place] 10/325) 1 tab PO Q4H PRN PRN Reason: Moderate Pain (4-6) Last Admin: 03/21/18 15:11 Dose: 1 tab Al Hydroxide/Mg Hydroxide (Maalox) 30 ml PO Q6H PRN PRN Reason: Heartburn or Indigestion Aspirin (Aspirin) 325 mg PO DAILY [facility] Last Admin: 03/21/18 08:40 Dose: 325 mg Atorvastatin Calcium (Lipitor) 40 mg PO HS [facility] Last Admin: 03/20/18 21:01 Dose: 40 mg Colchicine (Colcrys) 0.6 mg PO BID [facility] Last Admin: 03/21/18 08:41 Dose: 0.6 mg Dextrose/Water (Dextrose 50%) 25 gm SLOW IVP PRN PRN PRN Reason: Hypoglycemia Enoxaparin Sodium (Lovenox) 40 mg SC 0900,2100 [facility] Last Admin: 03/21/18 10:37 Dose: Not Given Famotidine (Pepcid) 20 mg PO BID [facility] Last Admin: 03/21/18 08:40 Dose: 20 mg Glucagon (Glucagon) 1 mg IM PRN PRN PRN Reason: Hypoglycemia Dextrose/Water (D5w) 1,000 mls @ 0 mls/hr IV .Q0M PRN; As Directed PRN Reason: Hypoglycemia Insulin Human Lispro (Humalog) 0 units SC .MODERATE SLIDING SC PRN PRN Reason: Moderate Correctional Scale Insulin Human Regular (Humulin R) 0 units SC .BEDTIME SLIDING SC PRN PRN Reason: Bedtime Correctional Scale Ketorolac Tromethamine (Toradol) 30 mg IVP Q6H PRN PRN Reason: Pain Stop: 03/25/18 01:22 Last Admin: 03/21/18 16:12 Dose: 30 mg Ketorolac Tromethamine (Toradol) 30 mg IVP NOW [facility] Stop: 03/26/18 16:16 Loperamide HCl (Imodium) 2 mg PO PRN PRN PRN Reason: Diarrhea/Loose Stools Magnesium Hydroxide (Milk Of Magnesium) 30 ml PO DAILYPRN PRN PRN Reason: Constipation Metoprolol Tartrate (Lopressor) 12.5 mg PO BID [facility] Last Admin: 03/21/18 08:40 Dose: 12.5 mg Nitroglycerin (Nitrostat) 0.4 mg PO Q5MIN PRN PRN Reason: Chest Pain Last Admin: 03/21/18 15:03 Dose: 0.4 mg Ondansetron HCl (Zofran Odt) 4 mg PO Q6H PRN PRN Reason: Nausea/Vomiting Last Admin: 03/20/18 08:54 Dose: 4 mg Ondansetron HCl (Zofran) 4 mg IVP Q6H PRN PRN Reason: Nausea/Vomiting Senna (Senokot) 2 tab PO HSPRN PRN PRN Reason: Constipation Sodium Chloride (Flush - Normal Saline) 10 ml IVF PRN PRN PRN Reason: Saline Flush Last Admin: 03/21/18 11:08 Dose: 10 ml Zolpidem Tartrate (Ambien) 5 mg PO HSPRN PRN PRN Reason: Insomnia
[2018-03-21] MEDS: Ketorolac Tromethamine 30 MG/ML VIAL IVP SCH ×2 (17:51→17:54)
[2018-03-21] MEDS: Atorvastatin Calcium 40 MG TAB PO SCH (20:41)
[2018-03-21] MEDS ORDERED: Enoxaparin Sodium 120 MG/0.8 ML SYRINGE SC SCH (21:00)
[2018-03-22] MEDS: Metoprolol Tartrate 25 MG TAB PO SCH ×3 (00:42→21:12)
[2018-03-22] MEDS ORDERED: Communication Order-Pharmacy FS SCH (06:54)
[2018-03-22 07:27] LABS: PTT 33.8 SEC (22.9-36.1); Prothrombin Time 12.9 SEC (12.0-14.7)
[2018-03-22 07:33] LABS: #Basophils 0.1 thou/uL (0.0-0.2); #Eosinphils 0.4 thou/uL (0.0-0.7); #Lymphocytes 2.6 thou/uL (1.20-3.40); #Monocytes 0.8 thou/uL (0.11-0.59); #Neutrophils 6.2 thou/uL (1.40-6.50); %Basophils 0.6 % (0.0-1.0); %Eosinophils 4.1 % (0.0-10.0); %Monocytes 8.3 % (0.0-10.0); Hemoglobin 14.6 g/dL (14.0-18.0); Mean Corpuscular HGB CONC 35.3 g/dL (32.0-36.0); Mean Corpuscular Hemoglobin 32.9 pg (27.0-31.0); Mean Corpuscular Volume 93.1 fl (80.0-94.0); Mean Platelet Volume 7.2 fL (7.4-10.4); Platelet Count 290 thou/uL (130-400); RBC Distribution Width 12.4 % (11.5-14.5); Red Blood Cell (RBC) Count 4.44 mill/uL (4.70-6.10); White Blood Cell (WBC) Count 10.1 thou/uL (4.8-10.8)
[2018-03-22 07:34] LABS: Anion Gap 13 mmol/L (10-20); BUN (Urea Nitrogen) 12 mg/dL (8.9-20.6); Calc. Creatinine Clearance 176 mL/min (70-130); Calcium 9.2 mg/dL (7.8-10.44); Carbon Dioxide 24 mmol/L (22-29); Chloride 106 mmol/L (98-107); Estimated GFR-MDRD Greater than 90; Glucose 113 mg/dL (70-105); Potassium 4.3 mmol/L (3.5-5.1); Sodium 139 mmol/L (136-145)
[2018-03-22] MEDS: Ketorolac Tromethamine 30 MG/ML VIAL IVP PRN ×2 (07:43→14:01)
[2018-03-22 07:48] LABS: Hemoglobin A1c 5.9 % (4.0-6.0)
[2018-03-22] MEDS ORDERED: Morphine 4 MG/ML VIAL SLOW IVP SCH (09:00)
[2018-03-22] MEDS ORDERED: Enoxaparin Sodium 40 MG/0.4 ML SYRINGE SC SCH (09:00)
--- NOTE | 2018-03-22 09:26 | PDOC.PN ---
- Subjective Encounter Start Date: 03/22/18 Encounter Start Time: 07:00 -: old records requested/rev Patient seen and examined for chest pain, he has low degree left sided chest pain, No overnight events - Objective Resuscitation Status: Resuscitation Status FULL:Full Resuscitation MAR Reviewed: Yes Vital Signs & Weight: Vital Signs (12 hours) Temp Pulse Resp BP BP Pulse Ox 03/22/18 07:40 98.1 F 67 16 134/84 94 L 03/22/18 04:00 97.3 F L 72 12 113/69 94 L 03/21/18 23:27 98.2 F 72 17 124/73 94 L Weight Weight 241 lb 3 oz I&O: 03/21/18 03/22/18 03/23/18 06:59 06:59 06:59 Intake Total 1127 880 Output Total 1020 500 Balance 107 380 Result Diagrams: 03/22/18 07:04 03/22/18 07:04 Additional Labs: Accuchecks 03/22/18 03/21/18 03/21/18 06:17 21:34 16:56 POC Glucose 123 H 132 H 107 03/21/18 10:33 POC Glucose 157 H Radiology Reviewed by me: Yes (echo- normal ef) EKG Reviewed by me: Yes (nsr) Phys Exam - Physical Examination Constitutional: NAD HEENT: PERRLA, moist MMs, sclera anicteric Neck: no JVD, supple Respiratory: no wheezing, no rales, no rhonchi Cardiovascular: RRR, no significant murmur, no rub Gastrointestinal: soft, non-tender, no distention, positive bowel sounds Musculoskeletal: no edema, pulses present Neurological: non-focal, normal sensation, moves all 4 limbs Lymphatic: no nodes Psychiatric: normal affect, A&O x 3 Skin: no rash, normal turgor Dx/Plan (1) Chest pain due to CAD Code(s): R07.9 - CHEST PAIN, UNSPECIFIED; I25.10 - ATHSCL HEART DISEASE OF [place] CORONARY ARTERY W/O ANG PCTRS Status: Acute (2) Elevated troponin Code(s): R74.8 - ABNORMAL LEVELS OF OTHER SERUM ENZYMES Status: Acute (3) 3-vessel coronary artery disease Status: Acute (4) Anxiety and depression Code(s): F41.9 - ANXIETY DISORDER, UNSPECIFIED; F32.9 - MAJOR DEPRESSIVE DISORDER, SINGLE EPISODE, UNSPECIFIED Status: Chronic (5) Asthma Code(s): J45.909 - UNSPECIFIED ASTHMA, UNCOMPLICATED Status: Chronic (6) Obesity (BMI 30-39.9) Code(s): E66.9 - OBESITY, UNSPECIFIED Status: Chronic (7) Tobacco abuse Code(s): Z72.0 - TOBACCO USE Status: Chronic - Plan cont current plan of care, plan discussed w/ family * pt is planned for CABG next Sunday * discussed with pt and * he is now agreed for CABG * currently on medical therapy * will monitor * one dose of morphin given for his pain * counselled to avoid smoking * medication reviewed as below * symptomatic treatment. Review of Systems - Review of Systems Eyes: negative: Pain, Vision Change, Conjunctivae Inflammation, Eyelid Inflammation, Redness, Other ENT: negative: Ear Pain, Ear Discharge, Nose Pain, Nose Discharge, Nose Congestion, Mouth Pain, Mouth Swelling, Throat Pain, Throat Swelling, Other Respiratory: negative: Cough, Dry, Shortness of Breath, Hemoptysis, SOB with Excertion, Pleuritic Pain, Sputum, Wheezing Cardiovascular: chest pain. negative: palpitations, orthopnea, paroxysmal nocturnal dyspnea, edema, light headedness, other Gastrointestinal: negative: Nausea, Vomiting, Abdominal Pain, Diarrhea, Constipation, Melena, Hematochezia, Other Genitourinary: negative: Dysuria, Frequency, Incontinence, Hematuria, Retention , Other Musculoskeletal: negative: Neck Pain, Shoulder Pain, Arm Pain, Back Pain, Hand Pain, Leg Pain, Foot Pain, Other Skin: negative: Rash, Lesions, Roberto, Bruising, Other - Medications/Allergies Allergies/Adverse Reactions: Allergies Allergy/AdvReac Type Severity Reaction Status Date / Time Penicillins Allergy Severe Rash Verified 10/25/17 07:41 iodine Allergy Intermediate Verified 10/25/17 07:41 shellfish derived Allergy Verified 10/25/17 07:41 Medications: Current Medications Acetaminophen (Tylenol) 650 mg PO Q4H PRN PRN Reason: Headache/Fever or Pain Hydrocodone Bitart/Acetaminophen ([place] 10/325) 1 tab PO Q4H PRN PRN Reason: Moderate Pain (4-6) Last Admin: 03/21/18 15:11 Dose: 1 tab Al Hydroxide/Mg Hydroxide (Maalox) 30 ml PO Q6H PRN PRN Reason: Heartburn or Indigestion Aspirin (Aspirin) 325 mg PO DAILY [facility] Last Admin: 03/21/18 08:40 Dose: 325 mg Atorvastatin Calcium (Lipitor) 40 mg PO HS [facility] Last Admin: 03/21/18 20:41 Dose: 40 mg Colchicine (Colcrys) 0.6 mg PO BID [facility] Last Admin: 03/21/18 20:41 Dose: 0.6 mg Dextrose/Water (Dextrose 50%) 25 gm SLOW IVP PRN PRN PRN Reason: Hypoglycemia Enoxaparin Sodium (Lovenox) 100 mg SC 0900,2100 [facility] Famotidine (Pepcid) 20 mg PO BID [facility] Last Admin: 03/21/18 20:40 Dose: 20 mg Glucagon (Glucagon) 1 mg IM PRN PRN PRN Reason: Hypoglycemia Dextrose/Water (D5w) 1,000 mls @ 0 mls/hr IV .Q0M PRN; As Directed PRN Reason: Hypoglycemia Insulin Human Lispro (Humalog) 0 units SC .MODERATE SLIDING SC PRN PRN Reason: Moderate Correctional Scale Insulin Human Regular (Humulin R) 0 units SC .BEDTIME SLIDING SC PRN PRN Reason: Bedtime Correctional Scale Ketorolac Tromethamine (Toradol) 30 mg IVP Q6H PRN PRN Reason: Pain Stop: 03/25/18 01:22 Last Admin: 03/22/18 07:43 Dose: 30 mg Ketorolac Tromethamine (Toradol) 30 mg IVP NOW [facility] Stop: 03/26/18 16:16 Last Admin: 03/21/18 17:54 Dose: 30 mg Loperamide HCl (Imodium) 2 mg PO PRN PRN PRN Reason: Diarrhea/Loose Stools Magnesium Hydroxide (Milk Of Magnesium) 30 ml PO DAILYPRN PRN PRN Reason: Constipation Metoprolol Tartrate (Lopressor) 12.5 mg PO BID [facility] Last Admin: 03/22/18 00:42 Dose: Not Given Miscellaneous Information (Communication Order-Pharmacy) 1 each FS ONE [facility] Stop: 03/25/18 12:00 Morphine Sulfate (Morphine) 4 mg SLOW IVP 0900 [facility] Stop: 03/22/18 11:00 Nitroglycerin (Nitrostat) 0.4 mg PO Q5MIN PRN PRN Reason: Chest Pain Last Admin: 03/21/18 15:03 Dose: 0.4 mg Ondansetron HCl (Zofran Odt) 4 mg PO Q6H PRN PRN Reason: Nausea/Vomiting Last Admin: 03/20/18 08:54 Dose: 4 mg Ondansetron HCl (Zofran) 4 mg IVP Q6H PRN PRN Reason: Nausea/Vomiting Senna (Senokot) 2 tab PO HSPRN PRN PRN Reason: Constipation Sodium Chloride (Flush - Normal Saline) 10 ml IVF PRN PRN PRN Reason: Saline Flush Last Admin: 03/21/18 17:55 Dose: 10 ml Zolpidem Tartrate (Ambien) 5 mg PO HSPRN PRN PRN Reason: Insomnia
[2018-03-22] MEDS: Aspirin 325 MG TAB PO SCH (09:30)
[2018-03-22] MEDS: Colchicine 0.6 MG TAB PO SCH ×2 (09:30→21:12)
[2018-03-22] MEDS: Famotidine 20 MG TAB PO SCH ×2 (09:31→21:12)
[2018-03-22] MEDS: Enoxaparin Sodium 100 MG/ML SYRINGE SC SCH ×2 (09:33→21:14)
--- NOTE | 2018-03-22 09:42 | PRG ---
DATE OF SERVICE: 03/22/2018 Mr. Batres continues to have chest pain. He states the pain is continuous. Nitroglycerin does not h elp. PHYSICAL EXAMINATION: VITAL SIGNS: Blood pressure 138/84, pulse 66 regular. LUNGS: Clear. CARDIAC: Normal S1 and S2. ABDOMEN: Soft and nontender. ASSESSMENT: 1. Three-vessel coronary artery disease. 2. History of noncompliance, left against medical advice twice prior to surgical therapy. 3. Cardiac catheterization films not available to me, done at [facility] where he left against medical advice. I had a long talk again with the patient and . Some of the pain sounds like angina, some does no t sound like angina. Discussed with the nonanginal chest pain will not go away after bypass surgery. He understands it is critical not to smoke, take medicines as prescribed and again understands that he will likely still have some chest pain after surgery, a noncardiac component. Give a single dose of morphine. The patient is scheduled for surgery on Sunday.
--- NOTE | 2018-03-22 10:07 | RAD ---
PORTABLE AP CHEST: Date: 03/22/18 HISTORY: Presurgical evaluation for open heart surgery. COMPARISON: 03/19/18. FINDINGS: Cardiac silhouette is magnified by projection, but does appear enlarged. Pulmonary vasculature is wit hin normal limits. Lungs remain clear. There has been no interval change from the prior study. IMPRESSION: 1. No acute cardiopulmonary process. 2. Mild cardiomegaly. POS: [facility]
[2018-03-22] MEDS: Atorvastatin Calcium 40 MG TAB PO SCH (21:13)
[2018-03-23] MEDS: Ketorolac Tromethamine 30 MG/ML VIAL IVP PRN ×3 (00:16→15:07)
[2018-03-23] MEDS: Aspirin 325 MG TAB PO SCH (08:38)
[2018-03-23] MEDS: Colchicine 0.6 MG TAB PO SCH ×2 (08:38→20:20)
[2018-03-23] MEDS: Famotidine 20 MG TAB PO SCH ×2 (08:38→20:20)
[2018-03-23] MEDS: Metoprolol Tartrate 25 MG TAB PO SCH ×2 (08:38→20:21)
[2018-03-23] MEDS: Enoxaparin Sodium 100 MG/ML SYRINGE SC SCH ×2 (08:38→20:21)
[2018-03-23] MEDS: Nitroglycerin 0.4 MG TAB (25 Tab Bottle) PO PRN ×3 (08:39→08:50)
--- NOTE | 2018-03-23 09:12 | PDOC.PN ---
- Subjective Encounter Start Date: 03/23/18 Encounter Start Time: 07:10 Patient seen and examined for chest pain and cad, still has chest pain but does not sound like angina. No overnight events - Objective Resuscitation Status: Resuscitation Status FULL:Full Resuscitation MAR Reviewed: Yes Vital Signs & Weight: Vital Signs (12 hours) Temp Pulse Resp BP BP Pulse Ox 03/23/18 08:00 97.7 F 70 16 132/78 96 03/23/18 04:00 97.9 F 65 18 118/66 95 Weight Weight 241 lb 3 oz I&O: 03/22/18 03/23/18 03/24/18 06:59 06:59 06:59 Intake Total 880 1430 120 Output Total 500 500 Balance 380 930 120 Result Diagrams: 03/22/18 07:04 03/22/18 07:04 Additional Labs: Accuchecks 03/23/18 03/22/18 03/22/18 06:05 20:59 16:38 POC Glucose 103 119 H 113 H 03/22/18 11:04 POC Glucose 123 H EKG Reviewed by me: Yes (nsr) Phys Exam - Physical Examination Constitutional: NAD HEENT: PERRLA, moist MMs, sclera anicteric Neck: no JVD, supple Respiratory: no wheezing, no rales, no rhonchi Cardiovascular: RRR, no significant murmur, no rub Gastrointestinal: soft, non-tender, no distention, positive bowel sounds Musculoskeletal: no edema, pulses present Neurological: non-focal, normal sensation, moves all 4 limbs Lymphatic: no nodes Psychiatric: normal affect, A&O x 3 Skin: no rash, normal turgor Dx/Plan (1) Chest pain due to CAD Code(s): R07.9 - CHEST PAIN, UNSPECIFIED; I25.10 - ATHSCL HEART DISEASE OF [place] CORONARY ARTERY W/O ANG PCTRS Status: Acute (2) Elevated troponin Code(s): R74.8 - ABNORMAL LEVELS OF OTHER SERUM ENZYMES Status: Acute (3) 3-vessel coronary artery disease Status: Acute (4) Anxiety and depression Code(s): F41.9 - ANXIETY DISORDER, UNSPECIFIED; F32.9 - MAJOR DEPRESSIVE DISORDER, SINGLE EPISODE, UNSPECIFIED Status: Chronic (5) Asthma Code(s): J45.909 - UNSPECIFIED ASTHMA, UNCOMPLICATED Status: Chronic (6) Obesity (BMI 30-39.9) Code(s): E66.9 - OBESITY, UNSPECIFIED Status: Chronic (7) Tobacco abuse Code(s): Z72.0 - TOBACCO USE Status: Chronic - Plan cont current plan of care * CABG on sunday * medication reviewed as below * symptomatic treatment. Review of Systems - Review of Systems Eyes: negative: Pain, Vision Change, Conjunctivae Inflammation, Eyelid Inflammation, Redness, Other ENT: negative: Ear Pain, Ear Discharge, Nose Pain, Nose Discharge, Nose Congestion, Mouth Pain, Mouth Swelling, Throat Pain, Throat Swelling, Other Respiratory: negative: Cough, Dry, Shortness of Breath, Hemoptysis, SOB with Excertion, Pleuritic Pain, Sputum, Wheezing Cardiovascular: chest pain. negative: palpitations, orthopnea, paroxysmal nocturnal dyspnea, edema, light headedness, other Gastrointestinal: negative: Nausea, Vomiting, Abdominal Pain, Diarrhea, Constipation, Melena, Hematochezia, Other Genitourinary: negative: Dysuria, Frequency, Incontinence, Hematuria, Retention , Other Musculoskeletal: negative: Neck Pain, Shoulder Pain, Arm Pain, Back Pain, Hand Pain, Leg Pain, Foot Pain, Other Skin: negative: Rash, Lesions, Roberto, Bruising, Other - Medications/Allergies Allergies/Adverse Reactions: Allergies Allergy/AdvReac Type Severity Reaction Status Date / Time Penicillins Allergy Severe Rash Verified 10/25/17 07:41 iodine Allergy Intermediate Verified 10/25/17 07:41 shellfish derived Allergy Verified 10/25/17 07:41 Medications: Current Medications Acetaminophen (Tylenol) 650 mg PO Q4H PRN PRN Reason: Headache/Fever or Pain Hydrocodone Bitart/Acetaminophen ([place] 10/325) 1 tab PO Q4H PRN PRN Reason: Moderate Pain (4-6) Last Admin: 03/21/18 15:11 Dose: 1 tab Al Hydroxide/Mg Hydroxide (Maalox) 30 ml PO Q6H PRN PRN Reason: Heartburn or Indigestion Aspirin (Aspirin) 325 mg PO DAILY [facility] Last Admin: 03/23/18 08:38 Dose: 325 mg Atorvastatin Calcium (Lipitor) 40 mg PO HS [facility] Last Admin: 03/22/18 21:13 Dose: 40 mg Colchicine (Colcrys) 0.6 mg PO BID [facility] Last Admin: 03/23/18 08:38 Dose: 0.6 mg Dextrose/Water (Dextrose 50%) 25 gm SLOW IVP PRN PRN PRN Reason: Hypoglycemia Enoxaparin Sodium (Lovenox) 100 mg SC 0900,2100 [facility] Last Admin: 03/23/18 08:38 Dose: 100 mg Famotidine (Pepcid) 20 mg PO BID [facility] Last Admin: 03/23/18 08:38 Dose: 20 mg Glucagon (Glucagon) 1 mg IM PRN PRN PRN Reason: Hypoglycemia Dextrose/Water (D5w) 1,000 mls @ 0 mls/hr IV .Q0M PRN; As Directed PRN Reason: Hypoglycemia Insulin Human Lispro (Humalog) 0 units SC .MODERATE SLIDING SC PRN PRN Reason: Moderate Correctional Scale Insulin Human Regular (Humulin R) 0 units SC .BEDTIME SLIDING SC PRN PRN Reason: Bedtime Correctional Scale Ketorolac Tromethamine (Toradol) 30 mg IVP Q6H PRN PRN Reason: Pain Stop: 03/25/18 01:22 Last Admin: 03/23/18 08:39 Dose: 30 mg Loperamide HCl (Imodium) 2 mg PO PRN PRN PRN Reason: Diarrhea/Loose Stools Magnesium Hydroxide (Milk Of Magnesium) 30 ml PO DAILYPRN PRN PRN Reason: Constipation Metoprolol Tartrate (Lopressor) 12.5 mg PO BID [facility] Last Admin: 03/23/18 08:38 Dose: 12.5 mg Miscellaneous Information (Communication Order-Pharmacy) 1 each FS ONE [facility] Stop: 03/25/18 12:00 Nitroglycerin (Nitrostat) 0.4 mg PO Q5MIN PRN PRN Reason: Chest Pain Last Admin: 03/23/18 08:50 Dose: 0.4 mg Ondansetron HCl (Zofran Odt) 4 mg PO Q6H PRN PRN Reason: Nausea/Vomiting Last Admin: 03/20/18 08:54 Dose: 4 mg Ondansetron HCl (Zofran) 4 mg IVP Q6H PRN PRN Reason: Nausea/Vomiting Senna (Senokot) 2 tab PO HSPRN PRN PRN Reason: Constipation Sodium Chloride (Flush - Normal Saline) 10 ml IVF PRN PRN PRN Reason: Saline Flush Last Admin: 03/23/18 08:39 Dose: 10 ml Zolpidem Tartrate (Ambien) 5 mg PO HSPRN PRN PRN Reason: Insomnia
[2018-03-23] MEDS: HYDROcodone/Acetaminophen 10/325 mg Tablet PO PRN ×2 (09:54→14:08)
[2018-03-23 13:02] LABS: Troponin I 0.049 ng/mL (< 0.028)
[2018-03-23] MEDS: Ondansetron ODT 4 MG TAB PO PRN (18:01)
[2018-03-23] MEDS: Atorvastatin Calcium 40 MG TAB PO SCH (20:21)
[2018-03-24] MEDS ORDERED: Eucerin (Mineral Oil/Petrolatum,White) 30 gm Jar TOP PRN (06:07)
[2018-03-24] MEDS ORDERED: Loratadine 10 MG TAB PO PRN (06:07)
[2018-03-24] MEDS ORDERED: hydrALAZINE 20 MG/ML VIAL SLOW IVP PRN (06:07)
[2018-03-24] MEDS ORDERED: Chloraseptic Spray 180 ml Bottle PO PRN (06:07)
[2018-03-24] MEDS ORDERED: Sodium Chloride 0.65% Nasal 44 ML BOT EA NARE PRN (06:07)
[2018-03-24] MEDS ORDERED: Lorazepam 1 MG TAB PO PRN (06:07)
[2018-03-24] MEDS ORDERED: Artificial Tears 18 DROP/0.9 ML EA EYE PRN (06:07)
[2018-03-24] MEDS ORDERED: Diabetic Tussin 200 MG/10 ML UDCUP PO PRN (06:07)
--- NOTE | 2018-03-24 08:23 | PDOC.PN ---
- Subjective Encounter Start Date: 03/24/18 Encounter Start Time: 06:50 Patient seen and examined for chest pain. No new complaints. No overnight events - Objective Resuscitation Status: Resuscitation Status FULL:Full Resuscitation MAR Reviewed: Yes Vital Signs & Weight: Vital Signs (12 hours) Temp Pulse Resp BP Pulse Ox 03/24/18 04:40 97 03/24/18 03:30 98.4 F 66 18 103/70 97 Weight Weight 241 lb 3 oz I&O: 03/23/18 03/24/18 03/25/18 06:59 06:59 06:59 Intake Total 1430 1459 Output Total 500 Balance 930 1459 Result Diagrams: 03/22/18 07:04 03/22/18 07:04 Additional Labs: Accuchecks 03/24/18 03/23/18 03/23/18 05:58 20:43 16:33 POC Glucose 108 114 H 92 03/23/18 11:01 POC Glucose 93 EKG Reviewed by me: Yes (nsr) Phys Exam - Physical Examination Constitutional: NAD HEENT: PERRLA, moist MMs, sclera anicteric Neck: no JVD, supple Respiratory: no wheezing, no rales, no rhonchi Cardiovascular: RRR, no significant murmur, no rub Gastrointestinal: soft, non-tender, no distention, positive bowel sounds Musculoskeletal: no edema, pulses present Neurological: non-focal, normal sensation, moves all 4 limbs Psychiatric: normal affect, A&O x 3 Skin: no rash, normal turgor Dx/Plan (1) Chest pain due to CAD Code(s): R07.9 - CHEST PAIN, UNSPECIFIED; I25.10 - ATHSCL HEART DISEASE OF [place] CORONARY ARTERY W/O ANG PCTRS Status: Acute (2) Elevated troponin Code(s): R74.8 - ABNORMAL LEVELS OF OTHER SERUM ENZYMES Status: Acute (3) 3-vessel coronary artery disease Status: Acute (4) Anxiety and depression Code(s): F41.9 - ANXIETY DISORDER, UNSPECIFIED; F32.9 - MAJOR DEPRESSIVE DISORDER, SINGLE EPISODE, UNSPECIFIED Status: Chronic (5) Asthma Code(s): J45.909 - UNSPECIFIED ASTHMA, UNCOMPLICATED Status: Chronic (6) Obesity (BMI 30-39.9) Code(s): E66.9 - OBESITY, UNSPECIFIED Status: Chronic (7) Tobacco abuse Code(s): Z72.0 - TOBACCO USE Status: Chronic - Plan cont current plan of care * his c/o recurrent chest pain is likely related with anxiety neurosis, will add ativan as needed * tomorrow plan for cabg * medication reviewed as below * symptomatic treatment. Review of Systems - Review of Systems Constitutional: negative: fever, chills, sweats, weakness, malaise, other Eyes: negative: Pain, Vision Change, Conjunctivae Inflammation, Eyelid Inflammation, Redness, Other ENT: negative: Ear Pain, Ear Discharge, Nose Pain, Nose Discharge, Nose Congestion, Mouth Pain, Mouth Swelling, Throat Pain, Throat Swelling, Other Respiratory: negative: Cough, Dry, Shortness of Breath, Hemoptysis, SOB with Excertion, Pleuritic Pain, Sputum, Wheezing Cardiovascular: negative: chest pain, palpitations, orthopnea, paroxysmal nocturnal dyspnea, edema, light headedness, other Gastrointestinal: negative: Nausea, Vomiting, Abdominal Pain, Diarrhea, Constipation, Melena, Hematochezia, Other Genitourinary: negative: Dysuria, Frequency, Incontinence, Hematuria, Retention , Other Musculoskeletal: negative: Neck Pain, Shoulder Pain, Arm Pain, Back Pain, Hand Pain, Leg Pain, Foot Pain, Other Skin: negative: Rash, Lesions, Roberto, Bruising, Other Neurological: negative: Weakness, Numbness, Incoordination, Change in Speech, Confusion, Seizures, Other - Medications/Allergies Allergies/Adverse Reactions: Allergies Allergy/AdvReac Type Severity Reaction Status Date / Time Penicillins Allergy Severe Rash Verified 10/25/17 07:41 iodine Allergy Intermediate Verified 10/25/17 07:41 shellfish derived Allergy Verified 10/25/17 07:41 Medications: Current Medications Acetaminophen (Tylenol) 650 mg PO Q4H PRN PRN Reason: Headache/Fever or Pain Hydrocodone Bitart/Acetaminophen ([place]als[place] 10/325) 1 tab PO Q4H PRN PRN Reason: Moderate Pain (4-6) Last Admin: 03/23/18 14:08 Dose: 1 tab Al Hydroxide/Mg Hydroxide (Maalox) 30 ml PO Q6H PRN PRN Reason: Heartburn or Indigestion Artificial Tears (Tears Naturale) 0 drop EA EYE PRN PRN PRN Reason: Dry Eyes Aspirin (Aspirin) 325 mg PO DAILY [facility] Last Admin: 03/23/18 08:38 Dose: 325 mg Atorvastatin Calcium (Lipitor) 40 mg PO HS [facility] Last Admin: 03/23/18 20:21 Dose: 40 mg Colchicine (Colcrys) 0.6 mg PO BID [facility] Last Admin: 03/23/18 20:20 Dose: 0.6 mg Dextrose/Water (Dextrose 50%) 25 gm SLOW IVP PRN PRN PRN Reason: Hypoglycemia Enoxaparin Sodium (Lovenox) 100 mg SC 0900,2100 [facility] Last Admin: 03/23/18 20:21 Dose: 100 mg Famotidine (Pepcid) 20 mg PO BID [facility] Last Admin: 03/23/18 20:20 Dose: 20 mg Glucagon (Glucagon) 1 mg IM PRN PRN PRN Reason: Hypoglycemia Guaifenesin (Robitussin Sf) 200 mg PO Q4H PRN PRN Reason: Cough Hydralazine HCl (Apresoline) 10 mg SLOW IVP Q4H PRN PRN Reason: Systolic BP > 180 Dextrose/Water (D5w) 1,000 mls @ 0 mls/hr IV .Q0M PRN; As Directed PRN Reason: Hypoglycemia Insulin Human Lispro (Humalog) 0 units SC .MODERATE SLIDING SC PRN PRN Reason: Moderate Correctional Scale Insulin Human Regular (Humulin R) 0 units SC .BEDTIME SLIDING SC PRN PRN Reason: Bedtime Correctional Scale Ketorolac Tromethamine (Toradol) 30 mg IVP Q6H PRN PRN Reason: Pain Stop: 03/25/18 01:22 Last Admin: 03/23/18 15:07 Dose: 30 mg Loperamide HCl (Imodium) 2 mg PO PRN PRN PRN Reason: Diarrhea/Loose Stools Loratadine (Claritin) 10 mg PO DAILYPRN PRN PRN Reason: Sinus Symptoms Lorazepam (Ativan) 1 mg PO Q4H PRN PRN Reason: Anxiety/Agitation Magnesium Hydroxide (Milk Of Magnesium) 30 ml PO DAILYPRN PRN PRN Reason: Constipation Metoprolol Tartrate (Lopressor) 12.5 mg PO BID [facility] Last Admin: 03/23/18 20:21 Dose: 12.5 mg Mineral Oil/White Petrolatum (Eucerin Cream) 0 gm TOP BIDPRN PRN PRN Reason: Dry Skin Miscellaneous Information (Communication Order-Pharmacy) 1 each FS ONE [facility] Stop: 03/25/18 12:00 Nitroglycerin (Nitrostat) 0.4 mg PO Q5MIN PRN PRN Reason: Chest Pain Last Admin: 03/23/18 08:50 Dose: 0.4 mg Ondansetron HCl (Zofran Odt) 4 mg PO Q6H PRN PRN Reason: Nausea/Vomiting Last Admin: 03/23/18 18:01 Dose: 4 mg Ondansetron HCl (Zofran) 4 mg IVP Q6H PRN PRN Reason: Nausea/Vomiting Phenol (Chloraseptic [place] 180 Ml Bot) 0 ml PO PRN PRN PRN Reason: Sore Throat Ranolazine (Ranexa) 500 mg PO BID [facility] Last Admin: 03/23/18 20:20 Dose: 500 mg Senna (Senokot) 2 tab PO HSPRN PRN PRN Reason: Constipation Sodium Chloride (Flush - Normal Saline) 10 ml IVF PRN PRN PRN Reason: Saline Flush Last Admin: 03/23/18 08:39 Dose: 10 ml Sodium Chloride ([place] Nasal [place] 0.65%) 0 ml EA NARE QIDPRN PRN PRN Reason: Nasal Congestion Zolpidem Tartrate (Ambien) 5 mg PO HSPRN PRN PRN Reason: Insomnia
[2018-03-24] MEDS: Enoxaparin Sodium 100 MG/ML SYRINGE SC SCH ×2 (08:33→20:55)
[2018-03-24] MEDS: Aspirin 325 MG TAB PO SCH (08:33)
[2018-03-24] MEDS: Famotidine 20 MG TAB PO SCH ×2 (08:34→20:53)
[2018-03-24] MEDS: Metoprolol Tartrate 25 MG TAB PO SCH ×2 (08:34→20:53)
[2018-03-24] MEDS: Colchicine 0.6 MG TAB PO SCH ×2 (08:34→20:55)
[2018-03-24] MEDS: Ketorolac Tromethamine 30 MG/ML VIAL IVP PRN ×3 (08:54→22:28)
[2018-03-24] MEDS: Atorvastatin Calcium 40 MG TAB PO SCH (20:53)
[2018-03-25] MEDS ORDERED: CEFAZOLIN/Water 2 GM/20 ML SYRINGE SLOW IVP SCH (04:00)
[2018-03-25] MEDS: HYDROcodone/Acetaminophen 10/325 mg Tablet PO PRN (05:17)
[2018-03-25] MEDS: Metoprolol Tartrate 25 MG TAB PO SCH (06:18)
[2018-03-25] MEDS ORDERED: CEFAZOLIN/Water 2 GM/20 ML SYRINGE ONE (06:24)
[2018-03-25] MEDS ORDERED: Albumin 5% 0 ML ONE ×2 (06:30→08:56)
[2018-03-25] MEDS ORDERED: Heparin 10,000 UNITS/1 ML VIAL 30,000 UNITS in Sodium Chloride 0.9% 1,000 ML FS SCH (06:45)
[2018-03-25] MEDS ORDERED: Fentanyl 250 MCG/5 ML VIAL ONE ×2 (06:58→11:48)
[2018-03-25] MEDS ORDERED: Midazolam HCl 5 mg/5 ml Vial ONE (06:59)
[2018-03-25] MEDS ORDERED: Midazolam HCl 2 mg/2 ml Vial ONE (07:08)
[2018-03-25] MEDS ORDERED: Potassium Chloride 20 MEQ/100 ML PREMIX BAG IVPB PRN (07:47)
[2018-03-25] MEDS ORDERED: Ondansetron HCl/PF 4 MG/2 ML Vial IVP PRN (07:47)
[2018-03-25] MEDS ORDERED: hydrALAZINE 20 MG/ML VIAL SLOW IVP PRN (07:47)
[2018-03-25] MEDS ORDERED: Norepinephrine 8 MG/0.9% NS 250 ML IVPB PRN (07:47)
[2018-03-25] MEDS ORDERED: Bisacodyl 5 MG TAB PO PRN (07:47)
[2018-03-25] MEDS ORDERED: Guaifenesin DM 100-10/5 ML UDCUP PO PRN (07:47)
[2018-03-25] MEDS ORDERED: Mag-Al 1200 mg/1200 mg/30 ML UDCUP PO PRN (07:47)
[2018-03-25] MEDS ORDERED: Fentanyl 100 MCG/2 ML VIAL SLOW IVP PRN (07:47)
[2018-03-25] MEDS ORDERED: Acetaminophen 325 MG TAB PO PRN (07:47)
[2018-03-25] MEDS ORDERED: Bisacodyl 10 MG SUPP PR PRN (07:47)
[2018-03-25] MEDS ORDERED: Hetastarch 6% 500 ML 500 ML IVPB PRN (07:47)
[2018-03-25] MEDS ORDERED: Promethazine HCl 25 MG/ML VIAL IM PRN (07:47)
[2018-03-25] MEDS ORDERED: Nitroglycerin 50 MG/250 ML BOT 250 ML IVPB PRN (07:47)
[2018-03-25] MEDS ORDERED: Post-Op Insulin Drip Protocol IVPB ONE (07:47)
[2018-03-25] MEDS ORDERED: Vancomycin HCl 1 GM in Premix Bag 1 BAG IVPB SCH (08:45)
[2018-03-25] MEDS ORDERED: Vecuronium 10 MG VIAL ONE ×2 (09:28→12:18)
--- NOTE | 2018-03-25 10:56 | PDOC.PN ---
- Subjective Encounter Start Date: 03/25/18 Encounter Start Time: 06:30 Patient seen and examined for cad. No new complaints. No overnight events - Objective Resuscitation Status: Resuscitation Status FULL:Full Resuscitation MAR Reviewed: Yes Vital Signs & Weight: Vital Signs (12 hours) Temp Pulse Resp BP Pulse Ox 03/25/18 04:00 98.4 F 72 18 130/79 97 03/25/18 00:00 98.3 F 64 18 105/58 L 98 Weight Weight 241 lb 3 oz I&O: 03/24/18 03/25/18 03/26/18 06:59 06:59 06:59 Intake Total 1459 730 Balance 1459 730 Result Diagrams: 03/22/18 07:04 03/22/18 07:04 Additional Labs: Accuchecks 03/25/18 03/25/18 03/25/18 10:48 08:59 08:09 POC Glucose 133 H 132 H 110 03/25/18 03/24/18 03/24/18 06:25 20:43 16:59 POC Glucose 107 102 125 H 03/24/18 13:27 POC Glucose 92 EKG Reviewed by me: Yes (nsr) Phys Exam - Physical Examination Constitutional: NAD HEENT: PERRLA, moist MMs, sclera anicteric Neck: no JVD, supple Respiratory: no wheezing, no rales, no rhonchi Cardiovascular: RRR, no significant murmur, no rub Gastrointestinal: soft, non-tender, no distention, positive bowel sounds Musculoskeletal: no edema, pulses present Neurological: non-focal, normal sensation, moves all 4 limbs Psychiatric: normal affect, A&O x 3 Skin: no rash, normal turgor Dx/Plan (1) Chest pain due to CAD Code(s): R07.9 - CHEST PAIN, UNSPECIFIED; I25.10 - ATHSCL HEART DISEASE OF [place] CORONARY ARTERY W/O ANG PCTRS Status: Acute (2) Elevated troponin Code(s): R74.8 - ABNORMAL LEVELS OF OTHER SERUM ENZYMES Status: Acute (3) 3-vessel coronary artery disease Status: Acute (4) Anxiety and depression Code(s): F41.9 - ANXIETY DISORDER, UNSPECIFIED; F32.9 - MAJOR DEPRESSIVE DISORDER, SINGLE EPISODE, UNSPECIFIED Status: Chronic (5) Asthma Code(s): J45.909 - UNSPECIFIED ASTHMA, UNCOMPLICATED Status: Chronic (6) Obesity (BMI 30-39.9) Code(s): E66.9 - OBESITY, UNSPECIFIED Status: Chronic (7) Tobacco abuse Code(s): Z72.0 - TOBACCO USE Status: Chronic - Plan cont current plan of care * today plan for CABG * after surgery, continue post cabg protocol treatment as per surgeon * medication reviewed as below * symptomatic treatment. Review of Systems - Review of Systems Eyes: negative: Pain, Vision Change, Conjunctivae Inflammation, Eyelid Inflammation, Redness, Other ENT: negative: Ear Pain, Ear Discharge, Nose Pain, Nose Discharge, Nose Congestion, Mouth Pain, Mouth Swelling, Throat Pain, Throat Swelling, Other Respiratory: negative: Cough, Dry, Shortness of Breath, Hemoptysis, SOB with Excertion, Pleuritic Pain, Sputum, Wheezing Cardiovascular: negative: chest pain, palpitations, orthopnea, paroxysmal nocturnal dyspnea, edema, light headedness, other Gastrointestinal: negative: Nausea, Vomiting, Abdominal Pain, Diarrhea, Constipation, Melena, Hematochezia, Other Genitourinary: negative: Dysuria, Frequency, Incontinence, Hematuria, Retention , Other Musculoskeletal: negative: Neck Pain, Shoulder Pain, Arm Pain, Back Pain, Hand Pain, Leg Pain, Foot Pain, Other Skin: negative: Rash, Lesions, Roberto, Bruising, Other - Medications/Allergies Allergies/Adverse Reactions: Allergies Allergy/AdvReac Type Severity Reaction Status Date / Time Penicillins Allergy Severe Rash Verified 10/25/17 07:41 iodine Allergy Intermediate Verified 10/25/17 07:41 shellfish derived Allergy Verified 10/25/17 07:41 Medications: Current Medications Acetaminophen (Tylenol) 650 mg PO Q6H PRN PRN Reason: Headache/Fever Or Mild Pain Hydrocodone Bitart/Acetaminophen ([place] 5/325) 1 tab PO Q4H PRN PRN Reason: Moderate Pain (4-6) Hydrocodone Bitart/Acetaminophen ([place] 5/325) 2 tab PO Q4H PRN PRN Reason: Severe Pain (7-10) Al Hydroxide/Mg Hydroxide (Maalox) 30 ml PO Q4H PRN PRN Reason: Indigestion Albumin Human (Albumin 5%) 12.5 gm IVPB Q6H PRN PRN Reason: To Maintain SBP> 90 mmHG Stop: 03/26/18 07:48 Albumin Human (Albumin 5%) 25 gm IVPB Q6H PRN PRN Reason: To Maintain SBP > 90 mmHG Stop: 03/26/18 07:48 Artificial Tears (Tears Naturale) 0 drop EA EYE PRN PRN PRN Reason: Dry Eyes Aspirin (Aspirin) 325 mg PO DAILY [facility] Atorvastatin Calcium (Lipitor) 40 mg PO HS [facility] Last Admin: 03/24/18 20:53 Dose: 40 mg Bisacodyl (Dulcolax) 10 mg PO Q12H PRN PRN Reason: Constipation Bisacodyl (Dulcolax) 10 mg [place] Q12H PRN PRN Reason: Constipation Cefazolin Sodium (Ancef) 2 gm SLOW IVP ONCALL-OR [facility] Stop: 03/26/18 04:01 Colchicine (Colcrys) 0.6 mg PO BID [facility] Last Admin: 03/24/18 20:55 Dose: 0.6 mg Dextrose/Water (Dextrose 50%) 25 gm SLOW IVP PRN PRN PRN Reason: Hypoglycemia Enoxaparin Sodium (Lovenox) 100 mg SC 0900,2100 [facility] Last Admin: 03/24/18 20:55 Dose: 100 mg Famotidine (Pepcid) 20 mg SLOW IVP Q12HR [facility] Fentanyl (Sublimaze) 25 mcg SLOW IVP Q2H PRN PRN Reason: Moderate Pain (4-6) Stop: 03/27/18 07:47 Fentanyl (Sublimaze) 50 mcg SLOW IVP Q2H PRN PRN Reason: Severe Pain (7-10) Stop: 03/27/18 07:47 Glucagon (Glucagon) 1 mg IM PRN PRN PRN Reason: Hypoglycemia Guaifenesin (Robitussin Sf) 200 mg PO Q4H PRN PRN Reason: Cough Guaifenesin/Dextromethorphan (Robitussin Dm) 15 ml PO Q4H PRN PRN Reason: Cough Hydralazine HCl (Apresoline) 10 mg SLOW IVP Q6H PRN PRN Reason: To Maintain SBP< 140mmHG Dextrose/Water (D5w) 1,000 mls @ 0 mls/hr IV .Q0M PRN; As Directed PRN Reason: Hypoglycemia Heparin Sodium (Porcine) 30, (000 units/ Sodium Chloride) 1,003 mls @ 0 mls/hr FS [facility] PRN Reason: As Directed Stop: 03/25/18 18:00 Hetastarch/Sodium Chloride (Hespan) 500 mls @ 0 mls/hr IVPB PRN PRN; As Directed PRN Reason: To Maintain SBP > 90mmHg Stop: 03/26/18 07:47 Norepinephrine Bitartrate (Levophed) 250 mls @ 0 mls/hr IVPB PRN PRN; Protocol ; Titrate PRN Reason: To maintain SBP > 90 mmHG Nicardipine HCl 25 mg/ Sodium (Chloride) 260 mls @ 0 mls/hr IVPB INF PRN; Protocol; Titrate PRN Reason: To Maintain SBP< 140mmHG Nitroglycerin/Dextrose (Nitroglycerin 50 Mg/250 Ml Bot) 250 mls @ 0 mls/hr IVPB PRN PRN; Protocol; Titrate PRN Reason: To Maintain SBP< 140mmHG Insulin Human Regular 100 (units/ Sodium Chloride) 101 mls @ 0 mls/hr IVPB INF [facility]; As Directed PRN Reason: Protocol Vancomycin HCl 1 gm/ Device 200 mls @ 200 mls/hr IVPB ONCALL-OR [facility] Insulin Glargine (Lantus) 0 units SC ONE PRN PRN Reason: PER OPEN HEART ORDERS Stop: 03/28/18 15:00 Insulin Human Regular (Humulin R) 0 units SC Q4H PRN; Protocol PRN Reason: POST OP SLIDING SCALE Loperamide HCl (Imodium) 2 mg PO PRN PRN PRN Reason: Diarrhea/Loose Stools Loratadine (Claritin) 10 mg PO DAILYPRN PRN PRN Reason: Sinus Symptoms Lorazepam (Ativan) 1 mg PO Q4H PRN PRN Reason: Anxiety/Agitation Last Admin: 03/24/18 15:28 Dose: 1 mg Magnesium Hydroxide (Milk Of Magnesium) 30 ml PO DAILYPRN PRN PRN Reason: Constipation Metoprolol Tartrate (Lopressor) 12.5 mg PO BID [facility] Last Admin: 03/25/18 06:18 Dose: 12.5 mg Mineral Oil/White Petrolatum (Eucerin Cream) 0 gm TOP BIDPRN PRN PRN Reason: Dry Skin Miscellaneous Information (Communication Order-Pharmacy) 1 each FS ONE [facility] Stop: 03/25/18 12:00 Morphine Sulfate (Morphine) 2 mg SLOW IVP Q15MIN PRN PRN Reason: Severe Pain (7-10) Nitroglycerin (Nitrostat) 0.4 mg PO Q5MIN PRN PRN Reason: Chest Pain Last Admin: 03/23/18 08:50 Dose: 0.4 mg Ondansetron HCl (Zofran Odt) 4 mg PO Q6H PRN PRN Reason: Nausea/Vomiting Last Admin: 03/23/18 18:01 Dose: 4 mg Ondansetron HCl (Zofran) 4 mg IVP Q6H PRN PRN Reason: Nausea/Vomiting Phenol (Chloraseptic [place] 180 Ml Bot) 0 ml PO PRN PRN PRN Reason: Sore Throat Potassium Chloride (Kcl) 20 meq IVPB PRN PRN PRN Reason: K level </= 4.0 Promethazine HCl (Phenergan) 6.25 mg IM Q4H PRN PRN Reason: Nausea/Vomiting Ranolazine (Ranexa) 500 mg PO BID [facility] Last Admin: 03/24/18 20:53 Dose: 500 mg Senna (Senokot) 2 tab PO HSPRN PRN PRN Reason: Constipation Sodium Chloride ([place] Nasal [place] 0.65%) 0 ml EA NARE QIDPRN PRN PRN Reason: Nasal Congestion Sodium Chloride (Flush - Normal Saline) 10 ml IVF PRN PRN PRN Reason: Saline Flush Zolpidem Tartrate (Ambien) 5 mg PO HSPRN PRN PRN Reason: Insomnia Last Admin: 03/24/18 22:33 Dose: 5 mg
[2018-03-25] MEDS: Aspirin 325 MG TAB PO SCH (11:47)
[2018-03-25] MEDS: Enoxaparin Sodium 100 MG/ML SYRINGE SC SCH (11:47)
[2018-03-25] MEDS: Colchicine 0.6 MG TAB PO SCH (11:47)
[2018-03-25] MEDS: Famotidine/PF 20 mg/2ml Vial SLOW IVP SCH ×2 (11:47→20:01)
[2018-03-25] MEDS ORDERED: Heparin 30,000 units/30 ml VIAL ONE ×2 (12:18→13:18)
[2018-03-25] MEDS ORDERED: Protamine Sulfate 250 MG/25 ML VIAL ONE (12:18)
[2018-03-25] MEDS ORDERED: PHENYLEPHRINE-NS 100 MCG/ML 10 ML SYRINGE ONE (12:18)
[2018-03-25] MEDS ORDERED: Mannitol 12.5 GM/50 ML ONE ×2 (12:18→13:18)
[2018-03-25] MEDS ORDERED: Heparin 5,000 UNITS/ML VIAL ONE (12:18)
[2018-03-25] MEDS ORDERED: PROPOFOL 200 MG/20 ML VIAL ONE (12:18)
--- NOTE | 2018-03-25 12:47 | EKG ---
Test Reason : Blood Pressure : / mmHG Vent. Rate : 057 BPM Atrial Rate : 057 BPM P-R Int : 170 ms QRS Dur : 092 ms QT Int : 414 ms P-R-T Axes : 042 077 071 degrees QTc Int : 402 ms Sinus bradycardia Otherwise normal ECG When compared with ECG of 22-MAR-2018 08:03, (Unconfirmed) No significant change was found Confirmed by ROBERT SHERMAN M.D. ([id number]), technical writer and editor FROY CHEUNG ([id number] on 03/25/2018 12:46:54 PM Referred By: BLAIRE Confirmed By:ROBERT SHERMAN M.D.
[2018-03-25] MEDS ORDERED: Papaverine 60 MG/2 ML VIAL ONE (13:18)
[2018-03-25] MEDS ORDERED: Cardioplegic Soln 1,000 ML BAG ONE (13:18)
[2018-03-25] MEDS ORDERED: Potassium Chlo 10 mEq/5 ml Syr ONE (13:18)
[2018-03-25] MEDS ORDERED: Calcium Chloride 1 GM/10 ML Abboject SYRINGE ONE (13:18)
[2018-03-25] MEDS ORDERED: Sodium Bicarb 50 MEQ/50 ML VIAL ONE (13:18)
[2018-03-25] MEDS ORDERED: Magnesium 5 GM/10 ML VIAL ONE (13:18)
[2018-03-25] MEDS ORDERED: Lidocaine 2% PF 100 mg/5 ml Syringe ONE (13:18)
[2018-03-25] MEDS: Insulin Regular 300 UNITS/3 ML VIAL SC PRN (14:56)
[2018-03-25 14:58] LABS: INR-International Normal Ratio 1.3; PTT 29.1 SEC (22.9-36.1); Prothrombin Time 16.4 SEC (12.0-14.7)
[2018-03-25 15:11] LABS: Anion Gap 9 mmol/L (10-20); BUN (Urea Nitrogen) 9 mg/dL (8.9-20.6); Calc. Creatinine Clearance 165 mL/min (70-130); Calcium 8.4 mg/dL (7.8-10.44); Carbon Dioxide 21 mmol/L (22-29); Chloride 109 mmol/L (98-107); Estimated GFR-MDRD 90; Glucose 131 mg/dL (70-105); Potassium 4.6 mmol/L (3.5-5.1); Sodium 134 mmol/L (136-145)
[2018-03-25 15:19] LABS: Actual Bicarbonate (HCO3a) 20.9 mEq/L (22-28); Base Excess (BEa) -5.1 mEq/L (-2.0 to +3.0); CO2 Tension 42.6 mmHg (35.0-45.0); Hematocrit-ABG 39.5 % (42.0-52.0); O2 Tension (PaO2) 131.4 mmHg (80.0-100.0); pH, Arterial 7.31 (7.35-7.45)
[2018-03-25 15:20] LABS: Calcium, Ionized 1.3 mmol/L (1.12-1.30); Puncture Site ALINE
[2018-03-25 15:27] LABS: Hemoglobin 13.3 g/dL (14.0-18.0); Mean Corpuscular HGB CONC 34.4 g/dL (32.0-36.0); Mean Corpuscular Hemoglobin 32.5 pg (27.0-31.0); Mean Corpuscular Volume 94.7 fl (80.0-94.0); Mean Platelet Volume 7.6 fL (7.4-10.4); Platelet Count 195 thou/uL (130-400); RBC Distribution Width 12.5 % (11.5-14.5); Red Blood Cell (RBC) Count 4.08 mill/uL (4.70-6.10); White Blood Cell (WBC) Count 50.1 thou/uL (4.8-10.8)
[2018-03-25 15:28] LABS: Band 20 % (5-11); Eosinophils 1 % (0-10); Lymphocytes 8 % (21-51); MDiff Complete? YES; Monocytes 3 % (0-10); Neutrophil 68 % (42-75); PLT Morphology Comment Appears Adequate
[2018-03-25] MEDS: Fentanyl 100 MCG/2 ML VIAL SLOW IVP PRN ×4 (15:41→22:28)
[2018-03-25] MEDS: Sodium Chloride 0.9% 1,000 ML IV SCH ×2 (15:43→23:35)
--- NOTE | 2018-03-25 15:53 | RAD ---
FRONTAL RADIOGRAPH CHEST: DATE: 03/25/18. COMPARISON: 03/22/18. HISTORY: Evaluate chest following open heart surgery. FINDINGS: Linear areas of subcutaneous gas are noted within the neck bilaterally, linear areas of lucency overl lindsay the chest consistent with areas of subcutaneous gas within the pectoralis musculature bilaterall y. A postoperative drainage catheter overlies the left hemithorax and the lower midline mediastinum. Th ere is a left-sided vascular catheter, distal tip overlying the region of the cavoatrial junction. M ild hazy density in bilateral lung bases suggests nonspecific volume loss/airspace disease. Endotrac heal tube terminates at the level of the clavicles. Midline sternotomy wires are present, new since the prior exam. IMPRESSION: Subcutaneous gas is noted in the neck bilaterally along the course of the sternocleidomastoid muscle and there is gas within the bilateral pectoralis musculature. Lines and tubes as detailed above. Co ntinued followup advised. POS: [facility]
--- NOTE | 2018-03-25 16:39 | EKG ---
Test Reason : POST CABG Blood Pressure : / mmHG Vent. Rate : 072 BPM Atrial Rate : 072 BPM P-R Int : 170 ms QRS Dur : 080 ms QT Int : 406 ms P-R-T Axes : 022 077 084 degrees QTc Int : 444 ms Normal sinus rhythm ST elevation, consider early repolarization, pericarditis, or injury Nonspecific ST abnormality Abnormal ECG When compared with ECG of 23-MAR-2018 10:03, (Unconfirmed) No significant change was found Confirmed by ROSETTA WAGNER ([id number]) on 03/25/2018 4:39:04 PM Referred By: NATALIE Confirmed By:ROSETTA WAGNER
[2018-03-25 18:06] LABS: CO2 Tension 41.8 mmHg (35.0-45.0); O2 Tension (PaO2) 80.6 mmHg (80.0-100.0); pH, Arterial 7.32 (7.35-7.45)
[2018-03-25 18:07] LABS: Actual Bicarbonate (HCO3a) 21.1 mEq/L (22-28); Base Excess (BEa) -4.7 mEq/L (-2.0 to +3.0); Calcium, Ionized 1.2 mmol/L (1.12-1.30); Hematocrit-ABG 42.5 % (42.0-52.0); Puncture Site ALINE
[2018-03-25] MEDS: Ondansetron ODT 4 MG TAB PO PRN (20:16)
[2018-03-25 20:25] LABS: Hemoglobin 13.7 g/dL (14.0-18.0)
[2018-03-25 20:38] LABS: Potassium 4.8 mmol/L (3.5-5.1)
--- NOTE | 2018-03-25 22:34 | OP ---
DATE OF PROCEDURE: 03/25/2018 PROCEDURES PERFORMED: Coronary artery bypass grafting x3 with left internal mammary artery to the LA D and reverse greater saphenous vein grafts from the aorta to the first obtuse marginal and to the PD A. PREOPERATIVE DIAGNOSIS: Coronary artery disease with post-infarction angina. POSTOPERATIVE DIAGNOSIS: Coronary artery disease with post-infarction angina. SURGEON: Jaspreet Carvajal M.D. MANAGER ESTATE: Miguel Angel Winkler M.D. ANESTHESIA: General endotracheal. INDICATIONS: The patient is a 37-year-old diabetic smoker with a positive family history of prematur e coronary disease who presented with a prolonged chest pain and had an elevation in his troponins co nsistent with a non-ST elevation myocardial infarction. The patient initially refused surgical revas cularization and left the hospital AMA, returned shortly thereafter with more chest pain and initiall y agreed to surgery and then refused and left AMA. He then presented to another hospital a few days later with chest pain on and off and he has now agreed to revascularization. FINDINGS: Pump time 80 minutes, crossclamp time 43 minutes slightly small, but good quality ANTONIO with good flow. A thin walled saphenous vein that became small at about the knee. The LAD was about a 1 .5 mm vessel. The OM1 was about 2 mm vessel of the PDA about 1.5 mm. The pericardium was closed. NARRATIVE REPORT: After informed consent was obtained, the patient was taken to the operating room a nd placed in supine position on the operating table. After the induction of general anesthesia, the patient's left upper chest was prepped and draped in sterile fashion. A triple-lumen central line ki t was used to place a left subclavian central line by the Seldinger technique. All three ports easil y aspirated and flushed. The line was secured. The patient's legs were then ultrasonographically ex amined. The saphenous vein appeared to be of reasonable size for about half to two-thirds of the pro ximal left thigh, but then became very small and was difficult to even identify ultrasonographically although it became rather superficial. It was clearly larger at the knee on the right thigh. The pa tient's torso, groin and lower extremities were then prepped and draped in a sterile fashion. A saph enous vein was harvested from the groin to mid calf from the right lower extremity. Using a skin rosaline dge technique, the vein was prepared for use as a graft and the harvest sites were closed in layers w ith subcutaneous and subcuticular Vicryl. Median sternotomy was performed. The left ANTONIO was mobiliz ed as a pedicle from the xiphoid to the level of the subclavian vein through an extrapleural exposure . There was 1 small rent near the level of the xiphoid. The patient was heparinized. The mammary w as ligated and divided distally, then instilled intraluminally with papaverine solution. The mammary bed was inspected for hemostasis. The hilar reflection of the pleura near the apex was mobilized. A 36 Vincentian chest tube was placed into the left pleural space, secured to the skin with suture and th en the pleural rent was repaired with Prolene. The ANTONIO retractor was placed in the [place] retracto r. The pericardium was opened and marsupialized. It was palpated and was soft. The heart was rathe r large and exposure of the ascending aorta was somewhat problematic. The pericardial reflection was taken down in a double concentric pursestring of 2-0 Ethibond was placed in the ascending aorta at t he base of the arch. A single pursestring was placed in the right atrial appendage. Aortic and veno us cannula were inserted and secured by the pursestrings. Cardiopulmonary bypass was instituted and the patient was systemically cooled. The heart was examined. The vessels to be bypassed were identi fied. A longitudinal slit was made in the pericardium anterior to the left phrenic nerve through whi ch the mammary pedicle could be passed. The plane between the aorta and the pulmonary artery was dev eloped. Aortic cross clamp was applied and cardioplegia was administered through an aortic root need le. When arrest been achieved, attention was turned to the first obtuse marginal. It was opened khadijah r where it emerged on the epicardial surface and was grafted end-to-side with reverse greater sapheno us vein and running 6-0 Prolene suture. The anastomosis was tested by flushing cold cardioplegia darlin n the graft. Attention was then turned to the PDA. It was heavily diseased near its origin, but was reasonably good quality on the epicardial surface in its mid portion. The posterolateral branches o f the right and the distal circumflex were tiny vessels. The PDA was opened and saphenous vein was a nastomosed to it. The LAD was then opened and the mammary was anastomosed to it with running 7-0 Pro mya and the pedicle tacked to the epicardium. The aortic cross clamps were placed with the partial occluding clamp. Aortotomy was made in the ascending aorta with a scalpel and punch incorporating th e root needle site in one of the aortotomies. The PDA graft was brought along the right side of the heart functionally near the AV groove, it was anastomosed in the more proximal aortotomy with running Prolene suture and the anastomosis marked with a small Hemoclip. The OM graft was brought along the left side of the heart and anastomosed to the more distal aortotomy and marked the vein grafts were occluded and the partial occluding clamp removed. The vein grafts were deaired. The bulldog was rem christal from them. The anastomoses were inspected for hemostasis. A posterior pericardial drain was br ought out through a separate incision and secured with suture. Right atrial and right ventricular te mporary epicardial pacing wires were placed. The patient was then weaned from cardiopulmonary bypass . The aortic and venous cannulae were removed and their pursestring secured. Protamine was administ ered. When hemostasis was adequate, an anterior mediastinal drain was placed and the pericardium was closed over with running Vicryl. The sternum was reapproximated with #7 stainless steel wires. Fas tha was closed over the wires. A Vicryl subcutaneous tissue was irrigated and reapproximated and the skin was closed with Vicryl subcuticular stitch. The wounds were dressed and the patient was taken to the intensive care unit in stable condition.
[2018-03-25] MEDS: Acetaminophen 1,000 MG in Premix Bag 1 BAG IVPB PRN (23:24)
[2018-03-26] MEDS: Fentanyl 100 MCG/2 ML VIAL SLOW IVP PRN ×3 (02:36→09:02)
[2018-03-26 05:16] LABS: Anion Gap 12 mmol/L (10-20); BUN (Urea Nitrogen) 11 mg/dL (8.9-20.6); Calc. Creatinine Clearance 159 mL/min (70-130); Calcium 8.2 mg/dL (7.8-10.44); Carbon Dioxide 21 mmol/L (22-29); Chloride 110 mmol/L (98-107); Estimated GFR-MDRD 90; Glucose 124 mg/dL (70-105); Potassium 4.4 mmol/L (3.5-5.1); Sodium 139 mmol/L (136-145)
[2018-03-26 05:37] LABS: Band 6 % (5-11); Hemoglobin 12.3 g/dL (14.0-18.0); Lymphocytes 8 % (21-51); MDiff Complete? YES; Mean Corpuscular HGB CONC 33.5 g/dL (32.0-36.0); Mean Corpuscular Hemoglobin 32.3 pg (27.0-31.0); Mean Corpuscular Volume 96.6 fl (80.0-94.0); Mean Platelet Volume 9.2 fL (7.4-10.4); Monocytes 11 % (0-10); Neutrophil 75 % (42-75); Platelet Count 177 thou/uL (130-400); RBC Distribution Width 12.7 % (11.5-14.5); Red Blood Cell (RBC) Count 3.79 mill/uL (4.70-6.10); White Blood Cell (WBC) Count 24.9 thou/uL (4.8-10.8)
[2018-03-26] MEDS: Acetaminophen 1,000 MG in Premix Bag 1 BAG IVPB PRN (06:00)
[2018-03-26] MEDS ORDERED: Furosemide 40 MG/4 ML VIAL SLOW IVP SCH (07:00)
[2018-03-26] MEDS: Ketorolac Tromethamine 30 MG/ML VIAL IVP SCH ×3 (07:36→19:38)
[2018-03-26] MEDS: Famotidine/PF 20 mg/2ml Vial SLOW IVP SCH ×2 (08:06→19:39)
[2018-03-26] MEDS: Aspirin 325 MG TAB PO SCH (08:52)
--- NOTE | 2018-03-26 09:10 | RAD ---
CHEST 1 VIEW: Date: 03/26/18 HISTORY: Dyspnea. Follow-up. COMPARISON: 03/25/18. FINDINGS: Cardiac silhouette is magnified and enlarged. Pulmonary vasculature remains engorged with patchy area s of parenchymal infiltrate and atelectasis throughout each lung, similar in appearance to the prior study. Mediastinum midline with postoperative changes. Left thoracostomy tube and left subclavian braden tral venous catheter remain in place. Endotracheal catheter no longer visible. Opaque drain overlies the mediastinum. No significant pneumothorax. IMPRESSION: Interval extubation. Otherwise stable postoperative appearance of the chest. POS: [facility]
--- NOTE | 2018-03-26 10:11 | PDOC.PN ---
- Subjective Encounter Start Date: 03/26/18 Encounter Start Time: 09:10 Patient seen and examined for cad, c/o surgical site pain, No overnight events - Objective Resuscitation Status: Resuscitation Status FULL:Full Resuscitation MAR Reviewed: Yes Vital Signs & Weight: Vital Signs (12 hours) Temp Pulse Resp Pulse Ox 03/26/18 08:00 99.9 F H 85 24 H 90 L 03/26/18 04:31 94 L Weight Admit Weight 241 lb 3.006 oz Weight 232 lb 2.348 oz Most Recent Monitor Data Heart Rate from ECG 85 NIBP 91/56 NIBP BP-Mean 66 Respiration from ECG 20 SpO2 92 I&O: 03/25/18 03/26/18 03/27/18 06:59 06:59 06:59 Intake Total 730 1766.4 Output Total 1180 1000 Balance 730 586.4 -1000 Result Diagrams: 03/26/18 04:00 03/26/18 04:00 Additional Labs: Accuchecks 03/26/18 03/26/18 03/26/18 08:27 06:15 04:06 POC Glucose 114 H 109 130 H 03/26/18 03/26/18 03/25/18 02:39 00:34 23:29 POC Glucose 125 H 120 H 121 H 03/25/18 03/25/18 03/25/18 22:10 21:21 20:24 POC Glucose 132 H 122 H 137 H 03/25/18 03/25/18 03/25/18 18:31 14:43 14:04 POC Glucose 180 H 132 H 139 H 03/25/18 03/25/18 03/25/18 13:15 12:15 11:48 POC Glucose 151 H 128 H 121 H 03/25/18 10:48 POC Glucose 133 H Radiology Reviewed by me: Yes (chest xray) EKG Reviewed by me: Yes (nsr) Phys Exam - Physical Examination Constitutional: NAD HEENT: PERRLA, moist MMs, sclera anicteric Neck: no JVD, supple Respiratory: no wheezing, no rales, no rhonchi chest tube+ Cardiovascular: RRR, no significant murmur, no rub Gastrointestinal: soft, non-tender, no distention, positive bowel sounds Musculoskeletal: no edema, pulses present surgical site with dressing Neurological: non-focal, normal sensation, moves all 4 limbs Psychiatric: normal affect, A&O x 3 Skin: no rash, normal turgor Dx/Plan (1) 3-vessel coronary artery disease Status: Acute (2) Chest pain due to CAD Code(s): R07.9 - CHEST PAIN, UNSPECIFIED; I25.10 - ATHSCL HEART DISEASE OF [place] CORONARY ARTERY W/O ANG PCTRS Status: Acute (3) Elevated troponin Code(s): R74.8 - ABNORMAL LEVELS OF OTHER SERUM ENZYMES Status: Acute (4) Anxiety and depression Code(s): F41.9 - ANXIETY DISORDER, UNSPECIFIED; F32.9 - MAJOR DEPRESSIVE DISORDER, SINGLE EPISODE, UNSPECIFIED Status: Chronic (5) Asthma Code(s): J45.909 - UNSPECIFIED ASTHMA, UNCOMPLICATED Status: Chronic (6) Obesity (BMI 30-39.9) Code(s): E66.9 - OBESITY, UNSPECIFIED Status: Chronic (7) Tobacco abuse Code(s): Z72.0 - TOBACCO USE Status: Chronic (8) Leucocytosis Code(s): D72.829 - ELEVATED WHITE BLOOD CELL COUNT, UNSPECIFIED Status: Acute (9) S/P CABG x 3 Code(s): Z95.1 - PRESENCE OF AORTOCORONARY BYPASS GRAFT Status: Acute - Plan cont current plan of care * continue post CABG care as per surgeon * medication reviewed as below * symptomatic treatment * will monitor. Review of Systems - Review of Systems Constitutional: negative: fever, chills, sweats, weakness, malaise, other Eyes: negative: Pain, Vision Change, Conjunctivae Inflammation, Eyelid Inflammation, Redness, Other ENT: negative: Ear Pain, Ear Discharge, Nose Pain, Nose Discharge, Nose Congestion, Mouth Pain, Mouth Swelling, Throat Pain, Throat Swelling, Other Respiratory: negative: Cough, Dry, Shortness of Breath, Hemoptysis, SOB with Excertion, Pleuritic Pain, Sputum, Wheezing Cardiovascular: chest pain. negative: palpitations, orthopnea, paroxysmal nocturnal dyspnea, edema, light headedness, other Gastrointestinal: negative: Nausea, Vomiting, Abdominal Pain, Diarrhea, Constipation, Melena, Hematochezia, Other Genitourinary: negative: Dysuria, Frequency, Incontinence, Hematuria, Retention , Other Musculoskeletal: negative: Neck Pain, Shoulder Pain, Arm Pain, Back Pain, Hand Pain, Leg Pain, Foot Pain, Other Skin: negative: Rash, Lesions, Roberto, Bruising, Other Neurological: negative: Weakness, Numbness, Incoordination, Change in Speech, Confusion, Seizures, Other - Medications/Allergies Allergies/Adverse Reactions: Allergies Allergy/AdvReac Type Severity Reaction Status Date / Time Penicillins Allergy Severe Rash Verified 10/25/17 07:41 iodine Allergy Intermediate Verified 10/25/17 07:41 shellfish derived Allergy Verified 10/25/17 07:41 Medications: Current Medications Acetaminophen (Tylenol) 650 mg PO Q6H PRN PRN Reason: Headache/Fever Or Mild Pain Hydrocodone Bitart/Acetaminophen ([place] 5/325) 1 tab PO Q4H PRN PRN Reason: Moderate Pain (4-6) Hydrocodone Bitart/Acetaminophen ([place] 5/325) 2 tab PO Q4H PRN PRN Reason: Severe Pain (7-10) Al Hydroxide/Mg Hydroxide (Maalox) 30 ml PO Q4H PRN PRN Reason: Indigestion Aspirin (Aspirin) 325 mg PO DAILY [facility] Last Admin: 03/26/18 08:52 Dose: 325 mg Bisacodyl (Dulcolax) 10 mg PO Q12H PRN PRN Reason: Constipation Bisacodyl (Dulcolax) 10 mg [place] Q12H PRN PRN Reason: Constipation Dextrose/Water (Dextrose 50%) 25 gm SLOW IVP PRN PRN PRN Reason: Hypoglycemia Famotidine (Pepcid) 20 mg SLOW IVP Q12HR [facility] Last Admin: 03/26/18 08:06 Dose: 20 mg Fentanyl (Sublimaze) 25 mcg SLOW IVP Q2H PRN PRN Reason: Moderate Pain (4-6) Stop: 03/27/18 07:47 Fentanyl (Sublimaze) 50 mcg SLOW IVP Q2H PRN PRN Reason: Severe Pain (7-10) Stop: 03/27/18 07:47 Last Admin: 03/26/18 09:02 Dose: 50 mcg Glucagon (Glucagon) 1 mg IM PRN PRN PRN Reason: Hypoglycemia Guaifenesin/Dextromethorphan (Robitussin Dm) 15 ml PO Q4H PRN PRN Reason: Cough Hydralazine HCl (Apresoline) 10 mg SLOW IVP Q6H PRN PRN Reason: To Maintain SBP< 140mmHG Dextrose/Water (D5w) 1,000 mls @ 0 mls/hr IV .Q0M PRN; As Directed PRN Reason: Hypoglycemia Norepinephrine Bitartrate (Levophed) 250 mls @ 0 mls/hr IVPB PRN PRN; Protocol ; Titrate PRN Reason: To maintain SBP > 90 mmHG Last Admin: 03/25/18 14:53 Dose: 250 mls Nicardipine HCl 25 mg/ Sodium (Chloride) 260 mls @ 0 mls/hr IVPB INF PRN; Protocol; Titrate PRN Reason: To Maintain SBP< 140mmHG Nitroglycerin/Dextrose (Nitroglycerin 50 Mg/250 Ml Bot) 250 mls @ 0 mls/hr IVPB PRN PRN; Protocol; Titrate PRN Reason: To Maintain SBP< 140mmHG Insulin Human Regular 100 (units/ Sodium Chloride) 101 mls @ 0 mls/hr IVPB INF [facility]; As Directed PRN Reason: Protocol Last Admin: 03/25/18 18:41 Dose: 101 mls Sodium Chloride (Normal Saline 0.9%) 1,000 mls @ 75 mls/hr IV .[id number] [facility] Last Admin: 03/25/18 23:35 Dose: 1,000 mls Acetaminophen 1,000 mg/ Device 100 mls @ 400 mls/hr IVPB Q6H PRN PRN Reason: PAIN/FEVER Stop: 03/26/18 23:03 Last Admin: 03/26/18 06:00 Dose: 100 mls Insulin Glargine (Lantus) 0 units SC ONE PRN PRN Reason: PER OPEN HEART ORDERS Stop: 03/28/18 15:00 Insulin Human Regular (Humulin R) 0 units SC Q4H PRN; Protocol PRN Reason: POST OP SLIDING SCALE Last Admin: 03/25/18 14:56 Dose: 2 unit Ketorolac Tromethamine (Toradol) 30 mg IVP Q6H [facility] Stop: 03/27/18 02:01 Last Admin: 03/26/18 07:36 Dose: 30 mg Morphine Sulfate (Morphine Sulfate) 2 mg SLOW IVP Q15MIN PRN PRN Reason: Severe Pain (7-10) Last Admin: 03/25/18 17:03 Dose: 2 mg Ondansetron HCl (Zofran Odt) 4 mg PO Q6H PRN PRN Reason: Nausea/Vomiting Last Admin: 03/25/18 20:16 Dose: 4 mg Ondansetron HCl (Zofran) 4 mg IVP Q6H PRN PRN Reason: Nausea/Vomiting Phenol (Chloraseptic [place] 180 Ml Bot) 0 ml PO PRN PRN PRN Reason: Sore Throat Potassium Chloride (Kcl) 20 meq IVPB PRN PRN PRN Reason: K level </= 4.0 Promethazine HCl (Phenergan) 6.25 mg IM Q4H PRN PRN Reason: Nausea/Vomiting Sodium Chloride (Flush - Normal Saline) 10 ml IVF PRN PRN PRN Reason: Saline Flush
[2018-03-26] MEDS: HYDROcodone/Acetaminophen 5/325 mg Tablet PO PRN ×2 (11:50→15:24)
[2018-03-26 14:14] LABS: O2 Tension (PaO2) 96.5 mmHg (80.0-100.0); pH, Arterial 7.37 (7.35-7.45)
[2018-03-26 14:15] LABS: Actual Bicarbonate (HCO3a) 24.6 mEq/L (22-28); Analyzer IN Cardio OR; Base Excess (BEa) -0.9 mEq/L (-2.0 to +3.0); Calcium, Ionized 1.1 mmol/L (1.12-1.30); Hematocrit-ABG 43.2 % (42.0-52.0); Hemoglobin (Hb) 14.1 g/dL (14.0-18.0); Puncture Site ALINE
[2018-03-26 14:16] LABS: Actual Bicarbonate (HCO3a) 21.8 mEq/L (22-28); Base Excess (BEa) -2.8 mEq/L (-2.0 to +3.0); CO2 Tension 37.1 mmHg (35.0-45.0); Hematocrit-ABG 36.2 % (42.0-52.0); Hemoglobin (Hb) 11.9 g/dL (14.0-18.0); O2 Tension (PaO2) 152.3 mmHg (80.0-100.0); pH, Arterial 7.39 (7.35-7.45)
[2018-03-26 14:17] LABS: Actual Bicarbonate (HCO3a) 24.6 mEq/L (22-28); Base Excess (BEa) -1.6 mEq/L (-2.0 to +3.0); CO2 Tension 48.8 mmHg (35.0-45.0); O2 Tension (PaO2) 386.7 mmHg (80.0-100.0); pH, Arterial 7.32 (7.35-7.45)
[2018-03-26 14:17] LABS: Analyzer IN Cardio OR; Calcium, Ionized 1.1 mmol/L (1.12-1.30); Puncture Site ALINE
[2018-03-26 14:18] LABS: Actual Bicarbonate (HCO3v) 25 mEq/L (22-28); Analyzer IN Cardio OR; Base Excess -1.3 mEq/L (-2.0 to +3.0); pH (venous) 7.303 (7.32-7.43)
[2018-03-26 14:18] LABS: Analyzer IN Cardio OR; Hematocrit-ABG 28.7 % (42.0-52.0); Hemoglobin (Hb) 9.6 g/dL (14.0-18.0); Puncture Site ALINE
[2018-03-26 14:19] LABS: Calcium, Ionized 0.95 mmol/L (1.16-1.32); Chloride (ABG LAB) 98 mmol/L (98-106); Hematocrit-VBG 29.1 % (44.0-64.0); Hemoglobin (Hb) 9.5 g/dL (13.2-17.3); Potassium - ABG Lab 4.5 mmol/L (3.70-5.30); Sodium 132.1 mmol/L (133-146)
[2018-03-26 14:20] LABS: Actual Bicarbonate (HCO3a) 23.2 mEq/L (22-28); Base Excess (BEa) -2.5 mEq/L (-2.0 to +3.0); CO2 Tension 44.3 mmHg (35.0-45.0); Hematocrit-ABG 26.4 % (42.0-52.0); Hemoglobin (Hb) 8.5 g/dL (14.0-18.0); O2 Tension (PaO2) 363.8 mmHg (80.0-100.0); pH, Arterial 7.34 (7.35-7.45)
[2018-03-26 14:21] LABS: Actual Bicarbonate (HCO3a) 20.7 mEq/L (22-28); Base Excess (BEa) -3.4 mEq/L (-2.0 to +3.0); CO2 Tension 33.3 mmHg (35.0-45.0); Hematocrit-ABG 25.6 % (42.0-52.0); Hemoglobin (Hb) 8.6 g/dL (14.0-18.0); O2 Tension (PaO2) 168.3 mmHg (80.0-100.0); pH, Arterial 7.41 (7.35-7.45)
[2018-03-26 14:21] LABS: Analyzer IN Cardio OR; Puncture Site ALINE
[2018-03-26 14:22] LABS: Analyzer IN Cardio OR; Puncture Site ALINE
[2018-03-26] MEDS: Sodium Chloride 0.9% 1,000 ML IV SCH (17:16)
[2018-03-26] MEDS ORDERED: clonazePAM 0.5 MG TAB PO PRN (20:15)
[2018-03-26] MEDS ORDERED: hydrOXYzine 25 MG TAB PO PRN (20:15)
[2018-03-27] MEDS: Ketorolac Tromethamine 30 MG/ML VIAL IVP SCH (02:12)
[2018-03-27 05:05] LABS: Anion Gap 12 mmol/L (10-20); BUN (Urea Nitrogen) 9 mg/dL (8.9-20.6); Calc. Creatinine Clearance 180 mL/min (70-130); Calcium 8.6 mg/dL (7.8-10.44); Carbon Dioxide 25 mmol/L (22-29); Chloride 106 mmol/L (98-107); Estimated GFR-MDRD Greater than 90; Glucose 111 mg/dL (70-105); Potassium 3.4 mmol/L (3.5-5.1); Sodium 140 mmol/L (136-145)
[2018-03-27 05:28] LABS: #Lymphocytes 3.3 thou/uL (1.20-3.40); #Neutrophils 9.6 thou/uL (1.40-6.50); %Basophils 0.2 % (0.0-1.0); %Eosinophils 0.3 % (0.0-10.0); %Monocytes 13.2 % (0.0-10.0); %Neutrophils 64.4 % (42.0-75.0); Hemoglobin 10.8 g/dL (14.0-18.0); Mean Corpuscular Hemoglobin 33.8 pg (27.0-31.0); Mean Corpuscular Volume 96.6 fl (80.0-94.0); Mean Platelet Volume 8.8 fL (7.4-10.4); Platelet Count 130 thou/uL (130-400); RBC Distribution Width 12.7 % (11.5-14.5); White Blood Cell (WBC) Count 14.9 thou/uL (4.8-10.8)
[2018-03-27] MEDS ORDERED: Bisacodyl 5 MG TAB PO PRN (07:10)
[2018-03-27] MEDS ORDERED: Zolpidem Tartrate 5 MG TAB PO PRN (07:10)
[2018-03-27] MEDS ORDERED: Mineral Oil ENEMA PR PRN (07:10)
[2018-03-27] MEDS ORDERED: Nitroglycerin 0.4 MG TAB (25 Tab Bottle) SL PRN (07:10)
[2018-03-27] MEDS ORDERED: diphenhydrAMINE 25 MG CAP PO PRN (07:10)
[2018-03-27] MEDS ORDERED: Artificial Tears 18 DROP/0.9 ML EA EYE PRN (07:10)
[2018-03-27] MEDS ORDERED: Guaifenesin DM 100-10/5 ML UDCUP PO PRN (07:10)
[2018-03-27] MEDS ORDERED: Mag-Al 1200 mg/1200 mg/30 ML UDCUP PO PRN (07:10)
[2018-03-27] MEDS ORDERED: Bisacodyl 10 MG SUPP PR PRN (07:10)
[2018-03-27] MEDS: Sodium Chloride 0.9% 1,000 ML IV SCH (07:49)
[2018-03-27] MEDS: Insulin Regular 300 UNITS/3 ML VIAL SC PRN ×2 (08:02→12:21)
[2018-03-27] MEDS: HYDROcodone/Acetaminophen 5/325 mg Tablet PO PRN ×4 (08:32→18:42)
[2018-03-27] MEDS: Aspirin 325 mg Enteric Coated Tablet PO SCH (08:32)
[2018-03-27] MEDS: Metoprolol Tartrate 25 MG TAB PO SCH ×2 (09:06→20:39)
--- NOTE | 2018-03-27 09:07 | RAD ---
CHEST 1 VIEW: HISTORY: Post open heart surgery. COMPARISON: Radiograph from prior day. FINDINGS: Left thoracostomy is in place. Small volume left hemithorax and subcutaneous emphysema. Interstitia l and alveolar opacities of both lower lobes. Central venous catheter tip sits at the inferior SVC. Air bronchogram is present in the right lower lobe. IMPRESSION: Similar examination of the chest. POS: [facility]
[2018-03-27] MEDS: Famotidine/PF 20 mg/2ml Vial SLOW IVP SCH (10:25)
--- NOTE | 2018-03-27 11:14 | PDOC.PN ---
- Subjective Encounter Start Date: 03/27/18 Encounter Start Time: 09:00 Patient seen and examined for CAD, today he is seated in chair,. No new complaints. No overnight events - Objective Resuscitation Status: Resuscitation Status FULL:Full Resuscitation MAR Reviewed: Yes Vital Signs & Weight: Vital Signs (12 hours) Temp Pulse Pulse Pulse Resp BP BP 03/27/18 08:34 110 H 110 H 103/63 95/66 03/27/18 08:00 100.4 F H 03/27/18 07:34 100.4 F H 112 H 17 03/27/18 07:15 110 H 23 H 03/27/18 04:00 98.9 F 03/27/18 00:11 119 H 22 H 03/27/18 00:00 98.3 F Pulse Ox Pulse Ox Pulse Ox 03/27/18 08:34 97 100 03/27/18 08:00 03/27/18 07:34 93 L 03/27/18 07:15 03/27/18 04:00 03/27/18 00:11 03/27/18 00:00 Weight Admit Weight 241 lb 3.006 oz Weight 232 lb 12.8 oz Most Recent Monitor Data Heart Rate from ECG 102 NIBP 111/64 NIBP BP-Mean 83 Respiration from ECG 21 SpO2 98 I&O: 03/26/18 03/27/18 03/28/18 06:59 06:59 06:59 Intake Total 1766.4 1579 500 Output Total 1180 2435 193 Balance 586.4 -856 307 Result Diagrams: 03/27/18 04:39 03/27/18 04:39 Additional Labs: Accuchecks 03/27/18 03/26/18 03/26/18 01:08 21:24 16:07 POC Glucose 139 H 101 101 Radiology Reviewed by me: Yes (chest xray) EKG Reviewed by me: Yes (nsr) Phys Exam - Physical Examination Constitutional: NAD HEENT: PERRLA, moist MMs, sclera anicteric Neck: no JVD, supple Respiratory: no wheezing, no rales, no rhonchi surgical site with dressing Cardiovascular: RRR, no significant murmur, no rub Gastrointestinal: soft, non-tender, no distention, positive bowel sounds Musculoskeletal: no edema, pulses present Neurological: non-focal, normal sensation, moves all 4 limbs Lymphatic: no nodes Psychiatric: normal affect, A&O x 3 Skin: no rash, normal turgor Dx/Plan (1) 3-vessel coronary artery disease Status: Acute (2) Chest pain due to CAD Code(s): R07.9 - CHEST PAIN, UNSPECIFIED; I25.10 - ATHSCL HEART DISEASE OF [place] CORONARY ARTERY W/O ANG PCTRS Status: Acute (3) Elevated troponin Code(s): R74.8 - ABNORMAL LEVELS OF OTHER SERUM ENZYMES Status: Acute (4) Anxiety and depression Code(s): F41.9 - ANXIETY DISORDER, UNSPECIFIED; F32.9 - MAJOR DEPRESSIVE DISORDER, SINGLE EPISODE, UNSPECIFIED Status: Chronic (5) Asthma Code(s): J45.909 - UNSPECIFIED ASTHMA, UNCOMPLICATED Status: Chronic (6) Obesity (BMI 30-39.9) Code(s): E66.9 - OBESITY, UNSPECIFIED Status: Chronic (7) Tobacco abuse Code(s): Z72.0 - TOBACCO USE Status: Chronic (8) Leucocytosis Code(s): D72.829 - ELEVATED WHITE BLOOD CELL COUNT, UNSPECIFIED Status: Acute (9) S/P CABG x 3 Code(s): Z95.1 - PRESENCE OF AORTOCORONARY BYPASS GRAFT Status: Acute - Plan cont current plan of care * medication reviewed as below * symptomatic treatment * continue post cabg care as per surgeon * possible transfer to [facility] today * stable and improving. Review of Systems - Review of Systems Eyes: negative: Pain, Vision Change, Conjunctivae Inflammation, Eyelid Inflammation, Redness, Other ENT: negative: Ear Pain, Ear Discharge, Nose Pain, Nose Discharge, Nose Congestion, Mouth Pain, Mouth Swelling, Throat Pain, Throat Swelling, Other Respiratory: negative: Cough, Dry, Shortness of Breath, Hemoptysis, SOB with Excertion, Pleuritic Pain, Sputum, Wheezing Cardiovascular: negative: chest pain, palpitations, orthopnea, paroxysmal nocturnal dyspnea, edema, light headedness, other Gastrointestinal: negative: Nausea, Vomiting, Abdominal Pain, Diarrhea, Constipation, Melena, Hematochezia, Other Genitourinary: negative: Dysuria, Frequency, Incontinence, Hematuria, Retention , Other Musculoskeletal: negative: Neck Pain, Shoulder Pain, Arm Pain, Back Pain, Hand Pain, Leg Pain, Foot Pain, Other Skin: negative: Rash, Lesions, Roberto, Bruising, Other - Medications/Allergies Allergies/Adverse Reactions: Allergies Allergy/AdvReac Type Severity Reaction Status Date / Time Penicillins Allergy Severe Rash Verified 10/25/17 07:41 iodine Allergy Intermediate Verified 10/25/17 07:41 shellfish derived Allergy Verified 10/25/17 07:41 Medications: Current Medications Acetaminophen (Tylenol) 650 mg PO Q6H PRN PRN Reason: Headache/Fever Or Mild Pain Hydrocodone Bitart/Acetaminophen ([place] 5/325) 1 tab PO Q4H PRN PRN Reason: Moderate Pain (4-6) Last Admin: 03/27/18 09:05 Dose: 1 tab Hydrocodone Bitart/Acetaminophen ([place] 5/325) 2 tab PO Q4H PRN PRN Reason: Severe Pain (7-10) Last Admin: 03/26/18 15:24 Dose: 2 tab Al Hydroxide/Mg Hydroxide (Maalox) 30 ml PO Q4H PRN PRN Reason: Indigestion Albuterol/Ipratropium (Duoneb) 3 ml EZPAP [id number] [facility] Last Admin: 03/27/18 07:15 Dose: 3 ml Artificial Tears (Tears Naturale) 0 drop EA EYE PRN PRN PRN Reason: Dry Eyes Aspirin (Ecotrin) 325 mg PO DAILY [facility] Last Admin: 03/27/18 08:32 Dose: 325 mg Bisacodyl (Dulcolax) 10 mg PO Q12H PRN PRN Reason: Constipation Bisacodyl (Dulcolax) 10 mg [place] Q12H PRN PRN Reason: Constipation Clonazepam (Klonopin) 0.25 mg PO DAILYPRN PRN PRN Reason: .ANXIETY Dextrose/Water (Dextrose 50%) 25 gm SLOW IVP PRN PRN PRN Reason: Hypoglycemia Diphenhydramine HCl (Benadryl) 25 mg PO Q6H PRN PRN Reason: Itching & Insomnia or Rinku Ernst Famotidine (Pepcid) 20 mg SLOW IVP Q12HR [facility] Last Admin: 03/27/18 10:25 Dose: 20 mg Glucagon (Glucagon) 1 mg IM PRN PRN PRN Reason: Hypoglycemia Guaifenesin/Dextromethorphan (Robitussin Dm) 15 ml PO Q4H PRN PRN Reason: Cough Guaifenesin/Dextromethorphan (Robitussin Dm) 15 ml PO Q4H PRN PRN Reason: Cough Hydralazine HCl (Apresoline) 10 mg SLOW IVP Q6H PRN PRN Reason: To Maintain SBP< 140mmHG Hydroxyzine HCl (Atarax) 50 mg PO TIDPRN PRN PRN Reason: .INSOMNIA/PRURITUS Dextrose/Water (D5w) 1,000 mls @ 0 mls/hr IV .Q0M PRN; As Directed PRN Reason: Hypoglycemia Norepinephrine Bitartrate (Levophed) 250 mls @ 0 mls/hr IVPB PRN PRN; Protocol ; Titrate PRN Reason: To maintain SBP > 90 mmHG Last Admin: 03/25/18 14:53 Dose: 250 mls Nicardipine HCl 25 mg/ Sodium (Chloride) 260 mls @ 0 mls/hr IVPB INF PRN; Protocol; Titrate PRN Reason: To Maintain SBP< 140mmHG Nitroglycerin/Dextrose (Nitroglycerin 50 Mg/250 Ml Bot) 250 mls @ 0 mls/hr IVPB PRN PRN; Protocol; Titrate PRN Reason: To Maintain SBP< 140mmHG Insulin Human Regular 100 (units/ Sodium Chloride) 101 mls @ 0 mls/hr IVPB INF [facility]; As Directed PRN Reason: Protocol Last Admin: 03/25/18 18:41 Dose: 101 mls Sodium Chloride (Normal Saline 0.9%) 1,000 mls @ 75 mls/hr IV .[id number] [facility] Last Admin: 03/27/18 07:49 Dose: Not Given Insulin Glargine (Lantus) 0 units SC ONE PRN PRN Reason: PER OPEN HEART ORDERS Stop: 03/28/18 15:00 Insulin Human Regular (Humulin R) 0 units SC Q4H PRN; Protocol PRN Reason: POST OP SLIDING SCALE Last Admin: 03/27/18 08:02 Dose: 3 unit Metoprolol Tartrate (Lopressor) 12.5 mg PO BID [facility] Last Admin: 03/27/18 09:06 Dose: Not Given Mineral Oil (Fleet Mineral Oil) 133 ml [place] DAILYPRN PRN PRN Reason: Constipation Nitroglycerin (Nitrostat) 0.4 mg SL Q5MIN PRN PRN Reason: Chest Pain Ondansetron HCl (Zofran Odt) 4 mg PO Q6H PRN PRN Reason: Nausea/Vomiting Last Admin: 03/25/18 20:16 Dose: 4 mg Ondansetron HCl (Zofran) 4 mg IVP Q6H PRN PRN Reason: Nausea/Vomiting Phenol (Chloraseptic [place] 180 Ml Bot) 0 ml PO PRN PRN PRN Reason: Sore Throat Potassium Chloride (Kcl) 20 meq IVPB PRN PRN PRN Reason: K level </= 4.0 Last Admin: 03/27/18 05:57 Dose: 20 meq Promethazine HCl (Phenergan) 6.25 mg IM Q4H PRN PRN Reason: Nausea/Vomiting Quetiapine Fumarate (Seroquel) 350 mg PO HS [facility] Last Admin: 03/26/18 20:20 Dose: 350 mg Sodium Chloride (Flush - Normal Saline) 10 ml IVF PRN PRN PRN Reason: Saline Flush Zolpidem Tartrate (Ambien) 5 mg PO HSPRN PRN PRN Reason: Insomnia
[2018-03-27] MEDS: Famotidine 20 MG TAB PO SCH (20:39)
[2018-03-28] MEDS: HYDROcodone/Acetaminophen 5/325 mg Tablet PO PRN ×5 (03:18→21:57)
[2018-03-28] MEDS: Aspirin 325 mg Enteric Coated Tablet PO SCH (09:33)
[2018-03-28] MEDS: Famotidine 20 MG TAB PO SCH ×2 (09:33→20:33)
[2018-03-28] MEDS: Metoprolol Tartrate 25 MG TAB PO SCH ×3 (09:33→21:56)
--- NOTE | 2018-03-28 09:39 | PDOC.PN ---
- Subjective Encounter Start Date: 03/28/18 Encounter Start Time: 07:20 Patient seen and examined for CAD. No new complaints. No overnight events - Objective Resuscitation Status: Resuscitation Status FULL:Full Resuscitation MAR Reviewed: Yes Vital Signs & Weight: Vital Signs (12 hours) Temp Pulse Resp BP BP Pulse Ox 03/28/18 07:55 97.6 F 103 H 16 97/56 L 92 L 03/28/18 06:48 97 20 93 L 03/28/18 03:22 98.6 F 106 H 18 100/65 93 L 03/28/18 00:04 92 L 03/28/18 00:00 98.4 F 101 H 20 81/46 L 93 L 03/27/18 23:21 100 20 92 L Weight Admit Weight 241 lb 3.006 oz Weight 232 lb 11.2 oz Most Recent Monitor Data Heart Rate from ECG 111 NIBP 107/58 NIBP BP-Mean 75 Respiration from ECG 12 SpO2 99 I&O: 03/27/18 03/28/18 03/29/18 06:59 06:59 06:59 Intake Total 1579 1439 Output Total 2435 542 Balance -856 897 Result Diagrams: 03/27/18 04:39 03/27/18 04:39 Additional Labs: Accuchecks 03/28/18 03/27/18 03/27/18 06:02 23:30 20:39 POC Glucose 150 H 131 H 140 H 03/27/18 03/27/18 03/27/18 16:52 11:29 08:02 POC Glucose 98 144 H 153 H EKG Reviewed by me: Yes (nsr) Phys Exam - Physical Examination Constitutional: NAD HEENT: PERRLA, moist MMs, sclera anicteric Neck: no JVD, supple Respiratory: no wheezing, no rales, no rhonchi Cardiovascular: RRR, no significant murmur, no rub Gastrointestinal: soft, non-tender, no distention, positive bowel sounds Musculoskeletal: no edema, pulses present Neurological: non-focal, normal sensation, moves all 4 limbs Psychiatric: normal affect, A&O x 3 Skin: no rash, normal turgor Deviation from normal: surgical site clean Dx/Plan (1) S/P CABG x 3 Code(s): Z95.1 - PRESENCE OF AORTOCORONARY BYPASS GRAFT Status: Acute (2) 3-vessel coronary artery disease Status: Acute (3) Chest pain due to CAD Code(s): R07.9 - CHEST PAIN, UNSPECIFIED; I25.10 - ATHSCL HEART DISEASE OF [place] CORONARY ARTERY W/O ANG PCTRS Status: Acute (4) Elevated troponin Code(s): R74.8 - ABNORMAL LEVELS OF OTHER SERUM ENZYMES Status: Acute (5) Anxiety and depression Code(s): F41.9 - ANXIETY DISORDER, UNSPECIFIED; F32.9 - MAJOR DEPRESSIVE DISORDER, SINGLE EPISODE, UNSPECIFIED Status: Chronic (6) Asthma Code(s): J45.909 - UNSPECIFIED ASTHMA, UNCOMPLICATED Status: Chronic (7) Obesity (BMI 30-39.9) Code(s): E66.9 - OBESITY, UNSPECIFIED Status: Chronic (8) Tobacco abuse Code(s): Z72.0 - TOBACCO USE Status: Chronic (9) Leucocytosis Code(s): D72.829 - ELEVATED WHITE BLOOD CELL COUNT, UNSPECIFIED Status: Acute - Plan cont current plan of care, plan discussed w/ family * continue Post CABG care as per CT surgeon * medication reviewed as below * symptomatic treatment * ambulate as tolerated * will consider discharge when CT surgeon OK. Review of Systems - Review of Systems Eyes: negative: Pain, Vision Change, Conjunctivae Inflammation, Eyelid Inflammation, Redness, Other ENT: negative: Ear Pain, Ear Discharge, Nose Pain, Nose Discharge, Nose Congestion, Mouth Pain, Mouth Swelling, Throat Pain, Throat Swelling, Other Respiratory: negative: Cough, Dry, Shortness of Breath, Hemoptysis, SOB with Excertion, Pleuritic Pain, Sputum, Wheezing Cardiovascular: negative: chest pain, palpitations, orthopnea, paroxysmal nocturnal dyspnea, edema, light headedness, other Gastrointestinal: negative: Nausea, Vomiting, Abdominal Pain, Diarrhea, Constipation, Melena, Hematochezia, Other Genitourinary: negative: Dysuria, Frequency, Incontinence, Hematuria, Retention , Other Musculoskeletal: negative: Neck Pain, Shoulder Pain, Arm Pain, Back Pain, Hand Pain, Leg Pain, Foot Pain, Other Skin: negative: Rash, Lesions, Roberto, Bruising, Other - Medications/Allergies Allergies/Adverse Reactions: Allergies Allergy/AdvReac Type Severity Reaction Status Date / Time Penicillins Allergy Severe Rash Verified 10/25/17 07:41 iodine Allergy Intermediate Verified 10/25/17 07:41 shellfish derived Allergy Verified 10/25/17 07:41 Medications: Current Medications Acetaminophen (Tylenol) 650 mg PO Q6H PRN PRN Reason: Headache/Fever Or Mild Pain Hydrocodone Bitart/Acetaminophen ([place] 5/325) 1 tab PO Q4H PRN PRN Reason: Moderate Pain (4-6) Last Admin: 03/27/18 09:05 Dose: 1 tab Hydrocodone Bitart/Acetaminophen ([place] 5/325) 2 tab PO Q4H PRN PRN Reason: Severe Pain (7-10) Last Admin: 03/28/18 07:53 Dose: 2 tab Al Hydroxide/Mg Hydroxide (Maalox) 30 ml PO Q4H PRN PRN Reason: Indigestion Albuterol/Ipratropium (Duoneb) 3 ml EZPAP [id number] [facility] Last Admin: 03/28/18 06:48 Dose: 3 ml Artificial Tears (Tears Naturale) 0 drop EA EYE PRN PRN PRN Reason: Dry Eyes Aspirin (Ecotrin) 325 mg PO DAILY [facility] Last Admin: 03/28/18 09:33 Dose: 325 mg Bisacodyl (Dulcolax) 10 mg PO Q12H PRN PRN Reason: Constipation Bisacodyl (Dulcolax) 10 mg [place] Q12H PRN PRN Reason: Constipation Clonazepam (Klonopin) 0.25 mg PO DAILYPRN PRN PRN Reason: .ANXIETY Dextrose/Water (Dextrose 50%) 25 gm SLOW IVP PRN PRN PRN Reason: Hypoglycemia Diphenhydramine HCl (Benadryl) 25 mg PO Q6H PRN PRN Reason: Itching & Insomnia or Rinku Ernst Famotidine (Pepcid) 20 mg PO BID [facility] Last Admin: 03/28/18 09:33 Dose: 20 mg Glucagon (Glucagon) 1 mg IM PRN PRN PRN Reason: Hypoglycemia Guaifenesin/Dextromethorphan (Robitussin Dm) 15 ml PO Q4H PRN PRN Reason: Cough Guaifenesin/Dextromethorphan (Robitussin Dm) 15 ml PO Q4H PRN PRN Reason: Cough Hydroxyzine HCl (Atarax) 50 mg PO TIDPRN PRN PRN Reason: .INSOMNIA/PRURITUS Dextrose/Water (D5w) 1,000 mls @ 0 mls/hr IV .Q0M PRN; As Directed PRN Reason: Hypoglycemia Insulin Glargine (Lantus) 0 units SC ONE PRN PRN Reason: PER OPEN HEART ORDERS Stop: 03/28/18 15:00 Insulin Human Regular (Humulin R) 0 units SC Q4H PRN; Protocol PRN Reason: POST OP SLIDING SCALE Last Admin: 03/27/18 12:21 Dose: 3 unit Metoprolol Tartrate (Lopressor) 12.5 mg PO BID [facility] Last Admin: 03/28/18 09:33 Dose: Not Given Mineral Oil (Fleet Mineral Oil) 133 ml [place] DAILYPRN PRN PRN Reason: Constipation Nitroglycerin (Nitrostat) 0.4 mg SL Q5MIN PRN PRN Reason: Chest Pain Ondansetron HCl (Zofran Odt) 4 mg PO Q6H PRN PRN Reason: Nausea/Vomiting Last Admin: 03/25/18 20:16 Dose: 4 mg Ondansetron HCl (Zofran) 4 mg IVP Q6H PRN PRN Reason: Nausea/Vomiting Phenol (Chloraseptic [place] 180 Ml Bot) 0 ml PO PRN PRN PRN Reason: Sore Throat Promethazine HCl (Phenergan) 6.25 mg IM Q4H PRN PRN Reason: Nausea/Vomiting Quetiapine Fumarate (Seroquel) 350 mg PO HS [facility] Last Admin: 03/27/18 20:41 Dose: 350 mg Sodium Chloride (Flush - Normal Saline) 10 ml IVF PRN PRN PRN Reason: Saline Flush Zolpidem Tartrate (Ambien) 5 mg PO HSPRN PRN PRN Reason: Insomnia
[2018-03-28 11:18] VITALS: BMI 36.4
[2018-03-28] MEDS: Insulin Regular 300 UNITS/3 ML VIAL SC PRN (17:30)
[2018-03-29 07:26] LABS: #Eosinphils 0.4 thou/uL (0.0-0.7); #Lymphocytes 2.8 thou/uL (1.20-3.40); #Monocytes 0.9 thou/uL (0.11-0.59); #Neutrophils 7.4 thou/uL (1.40-6.50); %Basophils 0.2 % (0.0-1.0); %Eosinophils 3.3 % (0.0-10.0); %Lymphocytes 24.1 % (21.0-51.0); %Monocytes 8.1 % (0.0-10.0); %Neutrophils 64.3 % (42.0-75.0); Hemoglobin 10.2 g/dL (14.0-18.0); Mean Corpuscular HGB CONC 34.2 g/dL (32.0-36.0); Mean Corpuscular Hemoglobin 33.1 pg (27.0-31.0); Mean Corpuscular Volume 96.7 fl (80.0-94.0); Mean Platelet Volume 8.1 fL (7.4-10.4); Platelet Count 213 thou/uL (130-400); Red Blood Cell (RBC) Count 3.08 mill/uL (4.70-6.10); White Blood Cell (WBC) Count 11.4 thou/uL (4.8-10.8)
[2018-03-29 07:47] LABS: Anion Gap 12 mmol/L (10-20); BUN (Urea Nitrogen) 12 mg/dL (8.9-20.6); Calc. Creatinine Clearance 172 mL/min (70-130); Calcium 8.9 mg/dL (7.8-10.44); Carbon Dioxide 25 mmol/L (22-29); Chloride 105 mmol/L (98-107); Estimated GFR-MDRD Greater than 90; Glucose 120 mg/dL (70-105); Potassium 3.3 mmol/L (3.5-5.1); Sodium 139 mmol/L (136-145)
[2018-03-29] MEDS: HYDROcodone/Acetaminophen 5/325 mg Tablet PO PRN ×2 (08:07→15:08)
[2018-03-29] MEDS: Metoprolol Tartrate 25 MG TAB PO SCH ×2 (08:08→21:00)
[2018-03-29] MEDS: Aspirin 325 mg Enteric Coated Tablet PO SCH (08:08)
[2018-03-29] MEDS: Furosemide 40 MG TAB PO SCH ×2 (08:09→14:13)
[2018-03-29] MEDS: Famotidine 20 MG TAB PO SCH ×2 (08:09→21:10)
--- NOTE | 2018-03-29 08:41 | RAD ---
CHEST 2 VIEWS: HISTORY: Hypoxia. COMPARISON: Radiograph 03/27/18. FINDINGS: There is airspace opacity in the posterior segment right lower lobe. The opacity in the left lung ba se is improving. Overall, the edema is improving. Mild prominence of the pulmonary arterial system. IMPRESSION: 1. Improving opacity suggesting improving edema. 2. Infiltrate in the right lower lobe concerning for possible infection. 3. Interval removal of the left thoracostomy tubes with small volume left-sided subcutaneous emphyse ma. No significant left-side pneumothorax. POS: [facility]
[2018-03-29] MEDS ORDERED: Furosemide 20 MG TAB PO SCH (09:00)
[2018-03-29] MEDS ORDERED: Potassium Chloride 20 MEQ TAB PO SCH (11:00)
--- NOTE | 2018-03-29 11:00 | PDOC.PN ---
- Subjective Encounter Start Date: 03/29/18 Encounter Start Time: 07:40 Patient seen and examined for cad. No new complaints. No overnight events - Objective Resuscitation Status: Resuscitation Status FULL:Full Resuscitation MAR Reviewed: Yes Vital Signs & Weight: Vital Signs (12 hours) Temp Pulse Resp BP BP Pulse Ox 03/29/18 08:06 98.5 F 98 18 109/61 92 L 03/29/18 06:46 89 20 92 L 03/29/18 03:57 98.2 F 99 21 H 106/59 L 92 L 03/29/18 00:29 96 20 91 L Weight Admit Weight 241 lb 3.006 oz Weight 235 lb 1.6 oz Most Recent Monitor Data Heart Rate from ECG 111 NIBP 107/58 NIBP BP-Mean 75 Respiration from ECG 12 SpO2 99 I&O: 03/28/18 03/29/18 03/30/18 06:59 06:59 06:59 Intake Total 1439 750 Output Total 542 600 Balance 897 150 Result Diagrams: 03/29/18 07:22 03/29/18 07:22 Additional Labs: Accuchecks 03/29/18 03/29/18 03/29/18 10:47 08:20 06:01 POC Glucose 145 H 104 123 H 03/28/18 03/28/18 20:55 11:12 POC Glucose 121 H 108 Radiology Reviewed by me: Yes (chest xray reviewed) EKG Reviewed by me: Yes (nsr) Phys Exam - Physical Examination Constitutional: NAD HEENT: PERRLA, moist MMs, sclera anicteric Neck: no JVD, supple Respiratory: no wheezing, no rales, no rhonchi reduced air entry at base Cardiovascular: RRR, no significant murmur, no rub Gastrointestinal: soft, non-tender, no distention, positive bowel sounds Musculoskeletal: no edema, pulses present Neurological: non-focal, normal sensation, moves all 4 limbs Lymphatic: no nodes Psychiatric: normal affect, A&O x 3 Skin: no rash, normal turgor Dx/Plan (1) S/P CABG x 3 Code(s): Z95.1 - PRESENCE OF AORTOCORONARY BYPASS GRAFT Status: Acute (2) 3-vessel coronary artery disease Status: Acute (3) Chest pain due to CAD Code(s): R07.9 - CHEST PAIN, UNSPECIFIED; I25.10 - ATHSCL HEART DISEASE OF [place] CORONARY ARTERY W/O ANG PCTRS Status: Acute (4) Elevated troponin Code(s): R74.8 - ABNORMAL LEVELS OF OTHER SERUM ENZYMES Status: Acute (5) Anxiety and depression Code(s): F41.9 - ANXIETY DISORDER, UNSPECIFIED; F32.9 - MAJOR DEPRESSIVE DISORDER, SINGLE EPISODE, UNSPECIFIED Status: Chronic (6) Asthma Code(s): J45.909 - UNSPECIFIED ASTHMA, UNCOMPLICATED Status: Chronic (7) Obesity (BMI 30-39.9) Code(s): E66.9 - OBESITY, UNSPECIFIED Status: Chronic (8) Tobacco abuse Code(s): Z72.0 - TOBACCO USE Status: Chronic (9) Leucocytosis Code(s): D72.829 - ELEVATED WHITE BLOOD CELL COUNT, UNSPECIFIED Status: Acute (10) Right lower lobe pneumonia Code(s): J18.1 - LOBAR PNEUMONIA, UNSPECIFIED ORGANISM Status: Suspected - Plan cont current plan of care, plan discussed w/ family * will add oral doxycycline empirically for suspected pneumonia * medication reviewed as below * symptomatic treatment * will discharge when surgeon ok. Review of Systems - Review of Systems Eyes: negative: Pain, Vision Change, Conjunctivae Inflammation, Eyelid Inflammation, Redness, Other ENT: negative: Ear Pain, Ear Discharge, Nose Pain, Nose Discharge, Nose Congestion, Mouth Pain, Mouth Swelling, Throat Pain, Throat Swelling, Other Respiratory: negative: Cough, Dry, Shortness of Breath, Hemoptysis, SOB with Excertion, Pleuritic Pain, Sputum, Wheezing Cardiovascular: negative: chest pain, palpitations, orthopnea, paroxysmal nocturnal dyspnea, edema, light headedness, other Gastrointestinal: negative: Nausea, Vomiting, Abdominal Pain, Diarrhea, Constipation, Melena, Hematochezia, Other Genitourinary: negative: Dysuria, Frequency, Incontinence, Hematuria, Retention , Other Musculoskeletal: negative: Neck Pain, Shoulder Pain, Arm Pain, Back Pain, Hand Pain, Leg Pain, Foot Pain, Other Skin: negative: Rash, Lesions, Roberto, Bruising, Other - Medications/Allergies Allergies/Adverse Reactions: Allergies Allergy/AdvReac Type Severity Reaction Status Date / Time Penicillins Allergy Severe Rash Verified 10/25/17 07:41 iodine Allergy Intermediate Verified 10/25/17 07:41 shellfish derived Allergy Verified 10/25/17 07:41 Medications: Current Medications Acetaminophen (Tylenol) 650 mg PO Q6H PRN PRN Reason: Headache/Fever Or Mild Pain Hydrocodone Bitart/Acetaminophen ([place] 5/325) 1 tab PO Q4H PRN PRN Reason: Moderate Pain (4-6) Last Admin: 03/28/18 12:10 Dose: 1 tab Hydrocodone Bitart/Acetaminophen ([place] 5/325) 2 tab PO Q4H PRN PRN Reason: Severe Pain (7-10) Last Admin: 03/29/18 08:07 Dose: 2 tab Al Hydroxide/Mg Hydroxide (Maalox) 30 ml PO Q4H PRN PRN Reason: Indigestion Albuterol/Ipratropium (Duoneb) 3 ml EZPAP [id number] [facility] Last Admin: 03/29/18 06:46 Dose: 3 ml Artificial Tears (Tears Naturale) 0 drop EA EYE PRN PRN PRN Reason: Dry Eyes Aspirin (Ecotrin) 325 mg PO DAILY [facility] Last Admin: 03/29/18 08:08 Dose: 325 mg Atorvastatin Calcium (Lipitor) 10 mg PO HS [facility] Bisacodyl (Dulcolax) 10 mg PO Q12H PRN PRN Reason: Constipation Bisacodyl (Dulcolax) 10 mg [place] Q12H PRN PRN Reason: Constipation Clonazepam (Klonopin) 0.25 mg PO DAILYPRN PRN PRN Reason: .ANXIETY Dextrose/Water (Dextrose 50%) 25 gm SLOW IVP PRN PRN PRN Reason: Hypoglycemia Diphenhydramine HCl (Benadryl) 25 mg PO Q6H PRN PRN Reason: Itching & Insomnia or Rinku Ernst Doxycycline Hyclate (Vibramycin) 100 mg PO BID [facility] Famotidine (Pepcid) 20 mg PO BID [facility] Last Admin: 03/29/18 08:09 Dose: 20 mg Furosemide (Lasix) 40 mg PO 0900,1400 [facility] Stop: 03/29/18 14:01 Last Admin: 03/29/18 08:09 Dose: 40 mg Glucagon (Glucagon) 1 mg IM PRN PRN PRN Reason: Hypoglycemia Guaifenesin/Dextromethorphan (Robitussin Dm) 15 ml PO Q4H PRN PRN Reason: Cough Hydroxyzine HCl (Atarax) 50 mg PO TIDPRN PRN PRN Reason: .INSOMNIA/PRURITUS Dextrose/Water (D5w) 1,000 mls @ 0 mls/hr IV .Q0M PRN; As Directed PRN Reason: Hypoglycemia Insulin Human Regular (Humulin R) 0 units SC Q4H PRN; Protocol PRN Reason: POST OP SLIDING SCALE Last Admin: 03/28/18 17:30 Dose: 3 unit Metoprolol Tartrate (Lopressor) 12.5 mg PO BID [facility] Last Admin: 03/29/18 08:08 Dose: 12.5 mg Mineral Oil (Fleet Mineral Oil) 133 ml [place] DAILYPRN PRN PRN Reason: Constipation Nitroglycerin (Nitrostat) 0.4 mg SL Q5MIN PRN PRN Reason: Chest Pain Ondansetron HCl (Zofran Odt) 4 mg PO Q6H PRN PRN Reason: Nausea/Vomiting Last Admin: 03/25/18 20:16 Dose: 4 mg Ondansetron HCl (Zofran) 4 mg IVP Q6H PRN PRN Reason: Nausea/Vomiting Phenol (Chloraseptic [place] 180 Ml Bot) 0 ml PO PRN PRN PRN Reason: Sore Throat Potassium Chloride (K-Dur) 40 meq PO ONE [facility] Promethazine HCl (Phenergan) 6.25 mg IM Q4H PRN PRN Reason: Nausea/Vomiting Quetiapine Fumarate (Seroquel) 350 mg PO HS [facility] Last Admin: 03/28/18 20:33 Dose: 350 mg Sodium Chloride (Flush - Normal Saline) 10 ml IVF PRN PRN PRN Reason: Saline Flush Zolpidem Tartrate (Ambien) 5 mg PO HSPRN PRN PRN Reason: Insomnia
[2018-03-29] MEDS: Insulin Regular 300 UNITS/3 ML VIAL SC PRN (12:25)
[2018-03-29] MEDS: Atorvastatin Calcium 10 MG TAB PO SCH (21:10)
[2018-03-29] MEDS: Doxycycline 100 MG CAP PO SCH (21:10)
[2018-03-30] MEDS: HYDROcodone/Acetaminophen 5/325 mg Tablet PO PRN ×3 (01:18→16:24)
[2018-03-30] MEDS: Famotidine 20 MG TAB PO SCH ×2 (08:17→22:17)
[2018-03-30] MEDS: Aspirin 325 mg Enteric Coated Tablet PO SCH (08:17)
[2018-03-30] MEDS: Metoprolol Tartrate 25 MG TAB PO SCH ×2 (08:17→22:17)
[2018-03-30] MEDS: Doxycycline 100 MG CAP PO SCH ×2 (08:17→22:16)
[2018-03-30] MEDS ORDERED: Furosemide 40 MG TAB PO SCH (11:45)
--- NOTE | 2018-03-30 11:45 | PDOC.PN ---
- Subjective Encounter Start Date: 03/30/18 Encounter Start Time: 09:25 Subjective: no chest pain or sob -: is amb in hallway - Objective Resuscitation Status: Resuscitation Status FULL:Full Resuscitation MAR Reviewed: Yes Vital Signs & Weight: Vital Signs (12 hours) Temp Pulse Resp BP Pulse Ox 03/30/18 06:45 110 H 14 03/30/18 04:00 98.3 F 111 H 14 91/55 L 92 L 03/30/18 01:18 95 03/30/18 00:52 96 03/30/18 00:00 98.0 F 97 18 106/59 L 93 L Weight Admit Weight 241 lb 3.006 oz Weight 234 lb 14.4 oz Most Recent Monitor Data Heart Rate from ECG 111 NIBP 107/58 NIBP BP-Mean 75 Respiration from ECG 12 SpO2 99 I&O: 03/29/18 03/30/18 03/31/18 06:59 06:59 06:59 Intake Total 750 1330 Output Total 600 1325 Balance 150 5 Result Diagrams: 03/29/18 07:22 03/29/18 07:22 Additional Labs: Accuchecks 03/30/18 03/30/18 03/29/18 08:49 05:23 21:07 POC Glucose 124 H 112 H 106 03/29/18 15:47 POC Glucose 119 H Phys Exam - Physical Examination HEENT: PERRLA, moist MMs Neck: no JVD, supple Respiratory: no wheezing rales+ basal b/l Cardiovascular: RRR, no significant murmur Gastrointestinal: soft, no distention, positive bowel sounds Musculoskeletal: pulses present, edema present Neurological: non-focal, moves all 4 limbs Psychiatric: normal affect, A&O x 3 Dx/Plan (1) 3-vessel coronary artery disease Status: Acute (2) S/P CABG x 3 Code(s): Z95.1 - PRESENCE OF AORTOCORONARY BYPASS GRAFT Status: Acute Comment: paulino to lad, rsvg to 1st ob anibal and pda 03/25/2018 (3) Anxiety and depression Code(s): F41.9 - ANXIETY DISORDER, UNSPECIFIED; F32.9 - MAJOR DEPRESSIVE DISORDER, SINGLE EPISODE, UNSPECIFIED Status: Chronic (4) Obesity (BMI 30-39.9) Code(s): E66.9 - OBESITY, UNSPECIFIED Status: Chronic (5) Right lower lobe pneumonia Code(s): J18.1 - LOBAR PNEUMONIA, UNSPECIFIED ORGANISM Status: Suspected Qualifiers: Pneumonia type: due to unspecified organism Qualified Code(s): J18.1 - Lobar pneumonia, unspecified organism - Plan gentle diuresis -: doxy for pna -: asp, lipitor, lopressor small dose -: suggest decrease dose of seroquel at bedtime (?350mg) -: dc plan per cts advice, still has edema + rales * . Review of Systems - Medications/Allergies Allergies/Adverse Reactions: Allergies Allergy/AdvReac Type Severity Reaction Status Date / Time Penicillins Allergy Severe Rash Verified 10/25/17 07:41 iodine Allergy Intermediate Verified 10/25/17 07:41 shellfish derived Allergy Verified 10/25/17 07:41 Medications: Current Medications Acetaminophen (Tylenol) 650 mg PO Q6H PRN PRN Reason: Headache/Fever Or Mild Pain Hydrocodone Bitart/Acetaminophen ([place] 5/325) 1 tab PO Q4H PRN PRN Reason: Moderate Pain (4-6) Last Admin: 03/30/18 08:18 Dose: 1 tab Hydrocodone Bitart/Acetaminophen ([place] 5/325) 2 tab PO Q4H PRN PRN Reason: Severe Pain (7-10) Last Admin: 03/30/18 01:18 Dose: 2 tab Al Hydroxide/Mg Hydroxide (Maalox) 30 ml PO Q4H PRN PRN Reason: Indigestion Albuterol/Ipratropium (Duoneb) 3 ml EZPAP [id number] [facility] Last Admin: 03/30/18 06:45 Dose: 3 ml Aspirin (Ecotrin) 325 mg PO DAILY [facility] Last Admin: 03/30/18 08:17 Dose: 325 mg Atorvastatin Calcium (Lipitor) 10 mg PO HS [facility] Last Admin: 03/29/18 21:10 Dose: 10 mg Bisacodyl (Dulcolax) 10 mg PO Q12H PRN PRN Reason: Constipation Bisacodyl (Dulcolax) 10 mg [place] Q12H PRN PRN Reason: Constipation Clonazepam (Klonopin) 0.25 mg PO DAILYPRN PRN PRN Reason: .ANXIETY Doxycycline Hyclate (Vibramycin) 100 mg PO BID [facility] Last Admin: 03/30/18 08:17 Dose: 100 mg Famotidine (Pepcid) 20 mg PO BID [facility] Last Admin: 03/30/18 08:17 Dose: 20 mg Furosemide (Lasix) 40 mg PO DAILY-AC [facility] Furosemide (Lasix) 40 mg PO ONE [facility] Guaifenesin/Dextromethorphan (Robitussin Dm) 15 ml PO Q4H PRN PRN Reason: Cough Hydroxyzine HCl (Atarax) 50 mg PO TIDPRN PRN PRN Reason: .INSOMNIA/PRURITUS Metoprolol Tartrate (Lopressor) 25 mg PO BID [facility] Mineral Oil (Fleet Mineral Oil) 133 ml [place] DAILYPRN PRN PRN Reason: Constipation Nitroglycerin (Nitrostat) 0.4 mg SL Q5MIN PRN PRN Reason: Chest Pain Ondansetron HCl (Zofran) 4 mg IVP Q6H PRN PRN Reason: Nausea/Vomiting Promethazine HCl (Phenergan) 6.25 mg IM Q4H PRN PRN Reason: Nausea/Vomiting Quetiapine Fumarate (Seroquel) 350 mg PO [facility] Last Admin: 03/30/18 00:06 Dose: 350 mg Sodium Chloride (Flush - Normal Saline) 10 ml IVF PRN PRN PRN Reason: Saline Flush Last Admin: 03/30/18 08:18 Dose: 10 ml Zolpidem Tartrate (Ambien) 5 mg PO HSPRN PRN PRN Reason: Insomnia
[2018-03-30] MEDS: Atorvastatin Calcium 10 MG TAB PO SCH (22:17)
[2018-03-31] MEDS: HYDROcodone/Acetaminophen 5/325 mg Tablet PO PRN (02:59)
[2018-03-31] MEDS ORDERED: Furosemide 40 MG TAB PO SCH (07:30)
[2018-03-31 07:35] VITALS: BP 118/55; TEMP 98
[2018-03-31] MEDS: Famotidine 20 MG TAB PO SCH (08:06)
[2018-03-31] MEDS: Doxycycline 100 MG CAP PO SCH (08:06)
[2018-03-31] MEDS: Aspirin 325 mg Enteric Coated Tablet PO SCH (08:06)
[2018-03-31] MEDS: Metoprolol Tartrate 25 MG TAB PO SCH (08:07)
--- NOTE | 2018-03-31 10:07 | PDOC.PN ---
- Subjective Encounter Start Date: 03/31/18 Encounter Start Time: 08:15 Subjective: is sitting in chair -: no sob, is amb in hallway -: at bedside - Objective Resuscitation Status: Resuscitation Status FULL:Full Resuscitation MAR Reviewed: Yes Vital Signs & Weight: Vital Signs (12 hours) Temp Pulse Resp BP BP Pulse Ox 03/31/18 07:42 98 F 102 H 16 92 L 03/31/18 07:34 98 F 102 H 16 118/55 L 92 L 03/31/18 06:45 100 14 03/31/18 03:20 98.3 F 104 H 20 94 L 03/30/18 23:10 93 18 94 L 03/30/18 23:03 98.2 F 95 16 112/66 95 Weight Admit Weight 241 lb 3.006 oz Weight 234 lb 14.4 oz Most Recent Monitor Data Heart Rate from ECG 111 NIBP 107/58 NIBP BP-Mean 75 Respiration from ECG 12 SpO2 99 I&O: 03/30/18 03/31/18 04/01/18 06:59 06:59 06:59 Intake Total 1330 2530 Output Total 1325 Balance 5 2530 Result Diagrams: 03/29/18 07:22 03/29/18 07:22 Additional Labs: Accuchecks 03/31/18 03/30/18 03/30/18 05:40 23:12 20:40 POC Glucose 123 H 121 H 99 03/30/18 03/30/18 16:51 12:04 POC Glucose 123 H 106 Phys Exam - Physical Examination HEENT: PERRLA, moist MMs Neck: no JVD, supple Respiratory: no wheezing, no rales Cardiovascular: RRR, no significant murmur Gastrointestinal: soft, non-tender, positive bowel sounds Musculoskeletal: no edema, pulses present Neurological: non-focal, moves all 4 limbs Psychiatric: normal affect, A&O x 3 Dx/Plan (1) 3-vessel coronary artery disease Status: Acute (2) S/P CABG x 3 Code(s): Z95.1 - PRESENCE OF AORTOCORONARY BYPASS GRAFT Status: Acute Comment: paulino to lad, rsvg to 1st ob anibal and pda 03/25/2018 (3) Anxiety and depression Code(s): F41.9 - ANXIETY DISORDER, UNSPECIFIED; F32.9 - MAJOR DEPRESSIVE DISORDER, SINGLE EPISODE, UNSPECIFIED Status: Chronic (4) Obesity (BMI 30-39.9) Code(s): E66.9 - OBESITY, UNSPECIFIED Status: Chronic (5) Right lower lobe pneumonia Code(s): J18.1 - LOBAR PNEUMONIA, UNSPECIFIED ORGANISM Status: Suspected Qualifiers: Pneumonia type: due to unspecified organism Qualified Code(s): J18.1 - Lobar pneumonia, unspecified organism - Plan hemostable -: is being cleared for discharge by * .
--- NOTE | 2018-03-31 13:29 | DIS ---
DATE OF ADMISSION: 03/20/2018 DATE OF DISCHARGE: 03/31/2018 DISCHARGE DISPOSITION: To home. PRIMARY DISCHARGE DIAGNOSES: The patient is status post CABG for 3-vessel disease; obesity; right sarah ng pneumonia, resolved; anxiety; depression. PROCEDURES DONE DURING HOSPITALIZATION: The patient has had echo with 2D Doppler which showed an EF of 55%-60%. He had CABG for 3 vessels done on 03/25/[address] Carvajal, had WATERS placed to LAD, greater saphenous vein graft to obtuse marginal and PDA. Discharge white count of 11, H&H 10 and 2 9, platelet count 213 with 64% neutrophils. Discharge BUN and creatinine is 12 and 0.8. Hemoglobin A1c 5.9. Total cholesterol 149, triglycerides 246, LDL 79, HDL 21. Troponin I was indeterminate pea kwame up to 0.27. CK-MB 0.4. DISCHARGE MEDICATIONS: Aspirin 325 mg p.o. daily, Lipitor 10 mg p.o. daily, Klonopin 0.25 mg p.o. da virgie p.r.n. for anxiety, Pepcid 20 mg twice daily, [place] p.r.n. for pain, Lopressor 12.5 mg twice annette y, Seroquel 350 mg p.o. at bedtime, albuterol inhaler q.6 hourly p.r.n. ALLERGIES: PENICILLIN, IODINE and SHELLFISH. INPATIENT CONSULTS: Dr. Cabrera for Cardiology and Dr. Carvajal for Cardiothoracic Surgery. DISCHARGE PLAN: The patient to follow up with Cardiothoracic Surgery as advised and primary care christy denis in 1 week. BRIEF COURSE DURING HOSPITALIZATION: The patient initially got admitted on the with complaints o f chest pain. He had indeterminate troponin. The patient has had recent cardiac catheterization don e at [facility] and was found to have had 3-vessel disease. The patient apparently left against medical advice when he was advised to get a CABG at [facility]. [facility] this [facility] with a cardiothoracic surgeon. He has had CABG for 3-vessel disease done. Postop, the patient is ambulating and is tolerating oral solid diet. He was optimized on his medications post-CABG. He was counseled with regards to medication compliance and dietary compliance post discharge. He is on very high dose of Seroquel at bedtime and this need to be slowly tapered d own with the help of primary care physician. He is otherwise hemodynamically stable and is being teresita ared for discharge by Dr. Winkler. Please see a [id number] documentation on [facility] for the day of discharge.
== END 2018-03-31 09:01 | disposition home or self-care (01) | DRG 235 ==
LOC: SCSER 18:57 → 2NO 21:28 → CCU 03-25 10:11 → 2NO 03-27 12:31
PROVIDERS: ADMIT Internal Medicine; ATTEND Internal Medicine
PROC: 02100Z9 Bypass Coronary Artery, One Artery from Left Internal Mammary, Open Approach (ICD-10-PCS; principal; 2018-03-25)
PROC: 021109W Bypass Coronary Artery, Two Arteries from Aorta with Autologous Venous Tissue, Open Approach (ICD-10-PCS; 2018-03-25)
PROC: 06BP3ZZ Excision of Right Saphenous Vein, Percutaneous Approach (ICD-10-PCS; 2018-03-25)
DX: I25.10 Atherosclerotic heart disease of native coronary artery without angina pectoris (principal); J18.9 Pneumonia, unspecified organism; Z95.1 Presence of aortocoronary bypass graft; E66.9 Obesity, unspecified; Z79.82 Long term (current) use of aspirin; Z79.51 Long term (current) use of inhaled steroids; Z91.041 Radiographic dye allergy status; Z88.0 Allergy status to penicillin; Z91.013 Allergy to seafood; E11.9 Type 2 diabetes mellitus without complications; F17.210 Nicotine dependence, cigarettes, uncomplicated; I10 Essential (primary) hypertension; F41.0 Panic disorder [episodic paroxysmal anxiety]; G40.909 Epilepsy, unspecified, not intractable, without status epilepticus; Z88.2 Allergy status to sulfonamides; Z68.37 Body mass index [BMI] 37.0-37.9, adult; R74.8 Abnormal levels of other serum enzymes; F41.8 Other specified anxiety disorders; J45.909 Unspecified asthma, uncomplicated; D72.829 Elevated white blood cell count, unspecified; Z79.4 Long term (current) use of insulin
CPT/HCPCS: 36415; 36416; 36430; 71045; 71046; 80048; 80053; 80061; 80306; 81001; 82553; 82805; 83036; 83880; 84484; 85025; 85379; 85610; 85730; 86850; 86900; 86901; 93005; 93010; 93306; 93798; 94002; 94640; 96372; 96374; 99406; J2270; A4216; J0131; J1642; J1644; J1650; J1815; J1885; J1940; J2001; J2150; J2250; J2405; J2440; J2704; J2720; J3010; J3370; J3475; J3480; J7050; J7620; P9045; Q0162; S0028

== ENCOUNTER 2018-04-02 17:18 | Inpatient (IN) | payer SELFPAY ==
[2018-04-02 17:49] LABS: #Basophils 0.2 thou/uL (0.0-0.2); #Eosinphils 0.5 thou/uL (0.0-0.7); #Lymphocytes 3.3 thou/uL (1.20-3.40); #Neutrophils 6.5 thou/uL (1.40-6.50); %Basophils 1.7 % (0.0-1.0); %Lymphocytes 28.9 % (21.0-51.0); %Monocytes 8.6 % (0.0-10.0); %Neutrophils 56.8 % (42.0-75.0); Hemoglobin 10.7 g/dL (14.0-18.0); Mean Corpuscular HGB CONC 34.7 g/dL (32.0-36.0); Mean Corpuscular Hemoglobin 32.5 pg (27.0-31.0); Mean Corpuscular Volume 93.5 fL (78.0-98.0); Mean Platelet Volume 7.8 fL (7.4-10.4); Platelet Count 411 thou/uL (130-400); RBC Distribution Width 12.6 % (11.5-14.5); Red Blood Cell (RBC) Count 3.28 mill/uL (4.70-6.10); White Blood Cell (WBC) Count 11.4 thou/uL (4.8-10.8)
[2018-04-02 18:04] LABS: ALT (SGPT) 29 U/L (8-55); AST (SGOT) 19 U/L (5-34); Albumin 3.8 g/dL (3.5-5.0); Alkaline Phosphatase 64 U/L (40-150); Anion Gap 14 mmol/L (10-20); BUN (Urea Nitrogen) 20 mg/dL (8.9-20.6); Bilirubin, Total 0.3 mg/dL (0.2-1.2); CK (CPK) 112 U/L (30-200); CKMB 0.8 ng/mL (0-6.6); Calc. Creatinine Clearance 0 mL/min (70-130); Calcium 9.5 mg/dL (7.8-10.44); Carbon Dioxide 27 mmol/L (22-29); Chloride 105 mmol/L (98-107); Estimated GFR-MDRD 77; Globulin 3.2 g/dL (2.4-3.5); Glucose 107 mg/dL (70-105); Lipase 30 U/L (8-78); Sodium 141 mmol/L (136-145); Troponin I 0.175 ng/mL (< 0.028)
[2018-04-02] MEDS ORDERED: diphenhydrAMINE 50 MG/ML VIAL ONE (18:55)
[2018-04-02] MEDS ORDERED: Sodium Chloride 0.9% 100 ML ONE (18:55)
[2018-04-02] MEDS ORDERED: cefTRIAXone\\ROCEPHIN 2 GM VIAL ONE (18:55)
[2018-04-02] MEDS ORDERED: Acetaminophen 325 MG TAB ONE (19:28)
[2018-04-02 19:47] LABS: Bilirubin Negative (Negative); Blood, Urine Negative (Negative); Clarity Clear (Clear); Glucose, Urine (Dipstick) Negative (Negative); Leukocyte Negative (Negative); Nitrite Negative (Negative); Protein, Urine (Dipstick) Negative (Neg-Trace); Specific Gravity, Urine 1.015 (1.005-1.030); Urobilinogen 0.2 mg/dL (0.2-1.0)
--- NOTE | 2018-04-02 19:50 | RAD ---
RADIOGRAPH CHEST 1 VIEW: Date: 04/02/18 Time: 6:05 p.m. HISTORY: 37-year-old male with acute chest pain. Status post recent CABG. COMPARISON: 03/29/18 FINDINGS: The left suprahilar mediastinal border is shaggy. This appears more prominent on the current study co mpared to the previous, perhaps due to positioning differences. This is not identified on the 03/19/18 study, and therefore it is unlikely to be a malignancy. This may represent progressive atelectasis or pneumonia in the left paramediastinal upper lobe. The previously described density at the right lowe r lung zone has improved, consistent with improving subsegmental atelectasis. Again noted are the michael rnotomy wires. No pneumothorax or pulmonary edema. Cardiomediastinal shadow remains widened. No pulmo nary edema. Questionable tiny left pleural effusion. IMPRESSION: 1. Interval improvement in the subsegmental atelectasis at the right lower lung zone. 2. Interval apparent progression of left medial upper lobe air space opacity, either atelectasis or pneumonia. Recommend continued followup. 3. Status post open heart surgery. FRED [] POS: PONCHO
[2018-04-02] MEDS ORDERED: Azithromycin 500 MG VIAL ONE (20:08)
[2018-04-02] MEDS ORDERED: Ondansetron ODT 4 MG TAB SL PRN (20:58)
[2018-04-02] MEDS ORDERED: Acetaminophen 325 MG TAB PO PRN (20:58)
[2018-04-02] MEDS ORDERED: Ondansetron HCl/PF 4 MG/2 ML Vial IVP PRN (20:58)
[2018-04-02 21:22] LABS: Troponin I 0.183 ng/mL (< 0.028)
[2018-04-02] MEDS ORDERED: Azithromycin 250 MG in Sodium Chloride 0.9% 250 ML 250 ML IVPB SCH (22:00)
[2018-04-02] MEDS ORDERED: PROVENTIL INHALER 6.7 G (200 INHALATIONS) INH PRN (22:04)
[2018-04-02] MEDS ORDERED: clonazePAM 0.5 MG TAB PO PRN (22:04)
[2018-04-02] MEDS ORDERED: hydrOXYzine 25 MG TAB PO PRN (22:04)
[2018-04-02] MEDS ORDERED: HYDROcodone/Acetaminophen 5/325 mg Tablet PO PRN (22:11)
[2018-04-02 22:16] VITALS: BMI 37.4
[2018-04-02] MEDS ORDERED: Albuterol Sulfate 1.25 MG/3 ML NEB NEB PRN (22:16)
[2018-04-02] MEDS: HYDROcodone/Acetaminophen 5/325 mg Tablet PO PRN (23:50)
[2018-04-02 23:52] LABS: Troponin I 0.178 ng/mL (< 0.028)
[2018-04-03] MEDS ORDERED: Dextrose 5% in Water 1,000 ML IV PRN (03:45)
[2018-04-03] MEDS ORDERED: Dextrose 50% Abboject 50 ML SYRINGE SLOW IVP PRN (03:45)
[2018-04-03] MEDS ORDERED: HumaLOG 300 UNITS/3 ML VIAL SC PRN (03:45)
[2018-04-03 05:22] LABS: #Basophils 0.1 thou/uL (0.0-0.2); #Eosinphils 0.4 thou/uL (0.0-0.7); #Lymphocytes 3.3 thou/uL (1.20-3.40); #Monocytes 1.1 thou/uL (0.11-0.59); #Neutrophils 5.3 thou/uL (1.40-6.50); %Basophils 0.7 % (0.0-1.0); %Eosinophils 4.3 % (0.0-10.0); %Lymphocytes 32.6 % (21.0-51.0); %Monocytes 10.9 % (0.0-10.0); %Neutrophils 51.5 % (42.0-75.0); Hemoglobin 10.2 g/dL (14.0-18.0); Mean Corpuscular HGB CONC 34.3 g/dL (32.0-36.0); Mean Corpuscular Volume 96.2 fL (78.0-98.0); Mean Platelet Volume 7.5 fL (7.4-10.4); Platelet Count 393 thou/uL (130-400); RBC Distribution Width 12.4 % (11.5-14.5); Red Blood Cell (RBC) Count 3.09 mill/uL (4.70-6.10); White Blood Cell (WBC) Count 10.3 thou/uL (4.8-10.8)
[2018-04-03 05:41] LABS: Anion Gap 12 mmol/L (10-20); BUN (Urea Nitrogen) 15 mg/dL (8.9-20.6); Calc. Creatinine Clearance 185 mL/min (70-130); Calcium 8.7 mg/dL (7.8-10.44); Carbon Dioxide 21 mmol/L (22-29); Chloride 110 mmol/L (98-107); Estimated GFR-MDRD Greater than 90; Glucose 91 mg/dL (70-105); Potassium 4.2 mmol/L (3.5-5.1); Sodium 139 mmol/L (136-145)
[2018-04-03] MEDS: HYDROcodone/Acetaminophen 5/325 mg Tablet PO PRN ×4 (07:06→20:34)
--- NOTE | 2018-04-03 08:31 | HP ---
PRIMARY CARE PHYSICIAN: Dr. Wall. CODE STATUS: The patient is FULL CODE. Time of evaluation : 0925 pm CHIEF COMPLAINT: Left lower chest area pain. HISTORY OF PRESENT ILLNESS: This is a 37-year-old male patient with past medical history of coronary artery disease. The patient has a CABG on 2017, by Dr. Carvajal here at [place]. Patient was discharged home 3 days ago. The patient had been doing well; however, today he started having severe chest pain in the left lower rib cage area with severe cough and sputum, also associated shortness of breath, no clear triggers, no alleviating factors, the patient reported also fever of 101.7 and chills. REVIEW OF SYSTEMS: Constitutional: The patient had fever, chills, generalized weakness. Respiratory: The patient has positive cough, shortness of breath, pleuritic pain. Cardiovascular: No chest pain, no palpitation. Gastrointestinal: No nausea, no vomiting, no diarrhea, no abdominal pain syndrome. Central Nervous System: No dizziness, headache or feeling lightheaded. Genitourinary: No burning of urination. Extremities: The patient has no leg swelling except for the right leg where the vein was obtained for CABG. PAST MEDICAL HISTORY: Positive for coronary artery disease, status post surgery last week; epilepsy; atrial fibrillation; diabetes type 2. PAST SURGICAL HISTORY: Left thumb surgery, 4-vessel CABG in 04/01/2018. PSYCHIATRIC HISTORY: The patient has history of panic attacks, CAD. SOCIAL HISTORY: No alcohol, no drugs. Patient is an everyday smoker, 1 pack per day. FAMILY HISTORY: Patient has a father with history of heart disease. ALLERGIES: 1. IODINE. 2. PENICILLIN. 3. SHELLFISH CONTAINING PRODUCTS. 4. SHELLFISH DERIVED. 5. SULFA. MEDICATIONS: Please see medication reconciliation for details. PHYSICAL EXAMINATION: VITAL SIGNS: Blood pressure 102/35, heart rate 87, respiratory rate 20. GENERAL: Patient is alert and oriented, in mild distress due to pain, obese. HEENT: Eyes: Normal conjunctivae. Moist oral mucosa. RESPIRATORY: Bilateral air entry. No rales or wheezing. Symmetric expansion. CARDIOVASCULAR: Normal rate, regular rhythm. No murmurs, no gallop. No edema. ABDOMEN: Soft, normal bowel sounds. MUSCULOSKELETAL: Baseline range of motion and strength. No tenderness. SKIN: Warm and intact. No pale, no rash. No redness. The patient does have a surgical wound that seems to be clean in the chest and abdomen and also in the right lower extremity. NEUROLOGIC: Baseline sensorium. No evidence of any new focal weakness. Baseline speech. Cranial nerves seem to be intact. PSYCHIATRIC: Good mood. Little anxious due to pain and discomfort, oriented, optimal judgment. LABORATORY DATA: Reviewed. The patient has a white count 11.4, hemoglobin 10.7 , MCV 93.5, platelet count 411,000. D-dimer 8.02. Sodium 141, potassium 5, chloride 105, carbon dioxide 27, anion gap 14, BUN 20, creatinine 1.0, GFR 77, glucose 107. Troponins x2 has been 0.175 and 0.178. Imagin. X-ray was reviewed. The patient has interval improvement of the subsegmental atelectasis in the right lower lobe soon. 2. Interval apparent progression of the left medial upper lobe airspace opacity either atelectasis or pneumonia. Recommend continue follow up. 3. Status post open heart surgery. EKG was reviewed. The patient has normal sinus rhythm with a rate of 86, nonspecific T-wave abnormalities, inferior Q- waves and prolonged QT. ASSESSMENT AND PLAN: 1. Acute left lower lobe pneumonia. This could be healthcare-associated pneumonia, we will cover with cefepime and vancomycin, we will step down on antibiotics depending on patient's clinical course, follow cultures. 2. History of diabetes, this is chronic, this is controlled, we will reconcile meds, and place the patient on sliding scale. 3. History of epilepsy, reconciled home medication, this is chronic, stable. 4. History of reported atrial fibrillation, reconcile medications, adjust as necessary. This is chronic, stable. 5. History of coronary artery disease, troponins are borderline 0.1, we will consult Cardiology for further recommendation, likely secondary to sepsis or might be from the recent surgery with final recommendations. 6. The patient has positive D-dimer, this could be from surgery; however, the patient continued to have severe chest pain, risk for pulmonary embolism, will do CT angiogram, will follow, we will treat accordingly. 7. History of coronary artery disease, status post coronary artery bypass graft , we will reconcile home medication, and troponin mildly elevated, can be secondary to infection as mentioned above. Cardiology has been consulted and will follow recommendation. 8. dvt prophylaxis MTDD
[2018-04-03] MEDS ORDERED: Enoxaparin Sodium 40 MG/0.4 ML SYRINGE SC SCH (09:00)
[2018-04-03] MEDS ORDERED: Vancomycin HCl 1 GM in Premix Bag 1 BAG IVPB SCH (09:00)
[2018-04-03] MEDS: Famotidine 20 MG TAB PO SCH ×2 (09:43→20:34)
[2018-04-03] MEDS: Aspirin 325 mg Enteric Coated Tablet PO SCH (09:43)
[2018-04-03] MEDS: Metoprolol Tartrate 25 MG TAB PO SCH (09:43)
[2018-04-03] MEDS: Atorvastatin Calcium 10 MG TAB PO SCH (09:44)
[2018-04-03] MEDS: Cefepime 1 GM in Sodium Chloride 0.9% 100 ML IVPB SCH ×2 (10:02→20:31)
--- NOTE | 2018-04-03 10:58 | NM ---
VQ SCAN: Date: 04/03/18 HISTORY: Chest pain. TECHNIQUE: A ventilation perfusion scan was performed using 9 mCi by inhalation for the ventilation study follow ed by the intravenous administration of 6 mCi technetium-99m MAA for the perfusion scan. FINDINGS: Correlation is made with the chest radiograph from previous day. Homogeneous tracer distribution is seen in the lungs on both sides on the ventilation scan without tr acer retention on the washout images. The perfusion scan demonstrates a large, single segmental probably mismatched perfusion defect in the inferior lingual segment of the left upper lobe. IMPRESSION: Intermediate probability for pulmonary embolism. Further evaluation with CT pulmonary angiogram is re commended. Discussed over the telephone with Dr. Zane Sheehan at 0936 hours. CODE CR. POS: ASHLEY
[2018-04-03] MEDS ORDERED: Hydrocortisone Sod Succ/PF 100 mg/2 ml Vial IVP SCH (11:45)
[2018-04-03] MEDS ORDERED: diphenhydrAMINE 50 MG/ML VIAL IVP SCH (11:45)
[2018-04-03] MEDS ORDERED: Famotidine/PF 20 mg/2ml Vial SLOW IVP SCH (11:45)
[2018-04-03] MEDS ORDERED: Enoxaparin Sodium 100 MG/ML SYRINGE SC SCH ×2 (13:30→21:00)
--- NOTE | 2018-04-03 13:34 | PDOC.PN ---
- Subjective Encounter Start Date: 04/03/18 Encounter Start Time: 13:25 Subjective: f/u for suspected PE in left lung field by V/Q scan. s/p CABG x 3 vessels -: on 03/25/18. Some CP over surgical scar on chest but not SOB. No fever. -: Nsg reports hypotensive receiving IVF bolus but received Metoprolol. - Objective Resuscitation Status: Resuscitation Status FULL:Full Resuscitation MAR Reviewed: Yes Vital Signs & Weight: Vital Signs (12 hours) Temp Pulse Resp BP Pulse Ox 04/03/18 12:00 98.6 F 80 20 90/52 L 92 L 04/03/18 08:00 98.9 F 98 18 107/66 95 04/03/18 03:11 98 F 96 18 106/53 L 93 L Weight Weight 239 lb I&O: 04/02/18 04/03/18 04/04/18 06:59 06:59 06:59 Intake Total 456 Output Total 1500 Balance -1044 Result Diagrams: 04/03/18 04:58 04/03/18 04:58 Additional Labs: Accuchecks 04/03/18 05:59 POC Glucose 100 Microbiology 04/02/18 18:40 Venous blood - Right Arm Blood Culture - Preliminary Specimen has been received and culture in progress. No Growth to date. 04/02/18 18:35 Venous blood - Left Hand Blood Culture - Preliminary Specimen has been received and culture in progress. No Growth to date. Laboratory Tests 04/02/18 04/02/18 17:30 17:30 Hgb 10.7 L D-Dimer 8.02 H Radiology Reviewed by me: Yes (V/Q scan - mod probability PE L lung field) EKG Reviewed by me: Yes (Tele - SR in 70's) Phys Exam - Physical Examination alert, pale, responds to questions HEENT: PERRLA, sclera anicteric, oral pharynx no lesions Neck: no nodes, no JVD, supple, full ROM Respiratory: no wheezing, no rales, no rhonchi, clear to auscultation bilateral S1, S2 Cardiovascular: RRR, no significant murmur, no rub, gallop Gastrointestinal: soft, non-tender, no distention, positive bowel sounds mild edema LE's Musculoskeletal: pulses present Neurological: normal sensation, moves all 4 limbs Psychiatric: normal affect, A&O x 3 Skin: no rash, normal turgor, cap refill <2 seconds Dx/Plan (1) Pulmonary embolus, left Code(s): I26.99 - OTHER PULMONARY EMBOLISM WITHOUT ACUTE COR PULMONALE Status : Acute Comment: High suspicion on V/Q scan, check CT angio chest today to confirm, Lovenox 100mg sc q12h first dose now, O2 via NC (2) Hypotension, iatrogenic Code(s): I95.89 - OTHER HYPOTENSION Status: Acute Comment: Likely due to Metoprolol and influence of #1, IV NS bolus now then 125ml/h, hold Metoprolol x 24h (3) 3-vessel coronary artery disease Status: Acute Comment: Continue ASA 325mg daily, Lipitor, Metoprolol (4) S/P CABG x 3 Code(s): Z95.1 - PRESENCE OF AORTOCORONARY BYPASS GRAFT Status: Acute Comment: s/p CABG on 03/25/18 (5) Normocytic anemia due to blood loss Code(s): D50.0 - IRON DEFICIENCY ANEMIA SECONDARY TO BLOOD LOSS (CHRONIC) Status: Acute Comment: Secondary to recent blood loss from CABG, stable currently, serial H/H monitoring, CBC in am (6) Pneumonia Code(s): J18.9 - PNEUMONIA, UNSPECIFIED ORGANISM Status: Suspected Qualifiers: Laterality: left Lung location: lower lobe of lung Comment: ? infectious process on current Zithromax, Cefepime and Vancomycin, likely due to PE, continue IV abx another 24h and monitor clinically - Plan continue antibiotics, PT/OT, social welfare clerk, respiratory therapy, DVT proph w/ SCDs Check CT angio chest now -: Premedicate for Iodine allergy with Hydrocortisone/Benadryl/Pepcid -: IVF NS bolus then 125ml/h -: Hold Metoprolol -: Lovenox 100mg sc now and then q12h * AM lab: BMP, CBC, Stool hemoccult
--- NOTE | 2018-04-03 14:58 | CT ---
CONTRAST ENHANCED CTA CHEST: History: Abnormal VQ scan. Patient has recent bypass. Patient had an indeterminate VQ scan. Technique: Contrast enhanced CTA of the chest was performed. 2D and 3D reconstructed images performed on an independent 3D workstation. FINDINGS: Images demonstrate recent sternotomy changes. Gas is seen in the upper parasternal region extending u p into the anterior aspect of the neck of the soft tissues anterior to the sternocleidomastoid muscle . Gas is also seen in the left lateral chest wall. The source of this gas is unknown. The patient kylie arently has had a previous coronary bypass 03-12-18, however, this gas should not be present from that time. Has there been more recent intervention? Small pericardial effusion is seen. Some coronary artery calcification is seen. No evidence of filling defects are seen in the pulmonary artery to suggest pulmonary emboli. Bibasilar areas of patchy density and atelectasis are present. A tiny left sided pleural effusion is seen. IMPRESSION: 1. Left lower chest wall and abdominal wall gas, as well as gas seen extending in the anterior soft t issues of the lower neck and medial upper chest. POS: [facility]
[2018-04-03 17:15] LABS: Hemoglobin 9.9 g/dL (14.0-18.0); Platelet Count 426 thou/uL (130-400)
[2018-04-03] MEDS: Sodium Chloride 0.9% 1,000 ML IV SCH (17:15)
--- NOTE | 2018-04-03 20:20 | PRG ---
DATE OF SERVICE: 04/03/2018 SUBJECTIVE: Mr. Batres is readmitted to the hospital with fever. The fever has resolved. He has re ceived antibiotics, had some atelectasis and got better. He feels better today and wants to go home. OBJECTIVE: VITAL SIGNS: Blood pressure 109/57, pulse 80, it is regular. LUNGS: Clear. CARDIAC: Normal S1 and normal S2. ASSESSMENT: 1. Recent bypass surgery. 2. Fever, resolved. 3. Slight increased troponin, likely related to recent bypass surgery. PLAN: Okay to be released home from a cardiac standpoint at any time.
[2018-04-04] MEDS: Sodium Chloride 0.9% 1,000 ML IV SCH ×2 (02:57→12:09)
[2018-04-04] MEDS ORDERED: Lorazepam 2 MG/ML VIAL SLOW IVP PRN (03:17)
[2018-04-04] MEDS: HYDROcodone/Acetaminophen 5/325 mg Tablet PO PRN ×3 (06:26→14:49)
[2018-04-04 06:42] LABS: Eosinophils 1 % (0-10); Hemoglobin 9.1 g/dL (14.0-18.0); Lymphocytes 32 % (21-51); MDiff Complete? YES; Mean Corpuscular HGB CONC 33.2 g/dL (32.0-36.0); Mean Corpuscular Hemoglobin 32.2 pg (27.0-31.0); Mean Corpuscular Volume 97.2 fL (78.0-98.0); Mean Platelet Volume 7.3 fL (7.4-10.4); Monocytes 11 % (0-10); Neutrophil 56 % (42-75); Platelet Count 400 thou/uL (130-400); RBC Distribution Width 12.4 % (11.5-14.5); Red Blood Cell (RBC) Count 2.81 mill/uL (4.70-6.10)
[2018-04-04 06:44] LABS: Anion Gap 11 mmol/L (10-20); BUN (Urea Nitrogen) 11 mg/dL (8.9-20.6); Calc. Creatinine Clearance 190 mL/min (70-130); Calcium 8.4 mg/dL (7.8-10.44); Carbon Dioxide 21 mmol/L (22-29); Chloride 114 mmol/L (98-107); Estimated GFR-MDRD Greater than 90; Glucose 86 mg/dL (70-105); Sodium 142 mmol/L (136-145)
[2018-04-04 10:19] LABS: Vancomycin, Trough 16.1 ug/mL
[2018-04-04] MEDS: Atorvastatin Calcium 10 MG TAB PO SCH (10:25)
[2018-04-04] MEDS: Famotidine 20 MG TAB PO SCH (10:25)
[2018-04-04] MEDS: Aspirin 325 mg Enteric Coated Tablet PO SCH (10:25)
[2018-04-04] MEDS: Cefepime 1 GM in Sodium Chloride 0.9% 100 ML IVPB SCH (10:25)
[2018-04-04] MEDS: Metoprolol Tartrate 25 MG TAB PO SCH (12:09)
--- NOTE | 2018-04-04 14:00 | DIS ---
DATE OF ADMISSION: 04/02/2018 DATE OF DISCHARGE: 04/04/2018 DISCHARGE DIAGNOSES: 1. Left-sided chest pain, status post coronary artery bypass grafting, musculoskeletal, stable. 2. Left lower lobe pneumonia, healthcare associated, improved. 3. Hypotension, iatrogenic. 4. Coronary artery disease. 5. Status post coronary artery bypass grafting x3 vessels. 6. Hypoxemia, mild with oxygen supplementation at 2 liters per minute by nasal cannula. 7. History of epilepsy, stable. CONSULTATIONS: Dr. Carvajal with Thoracic Surgery Service. Dr. Cabrera with Cardiology Service. PERTINENT LABORATORY AND X-RAY FINDINGS: Lactic acid level 2.0, troponin I ranged between 0.175-0.18 3. Lipase 30. LFTs within normal limits. CBC showed a white blood cell count ranging between 9.0 t o 11.4, hemoglobin ranged between 9.1-10.7. D-dimer 8.02. Urinalysis negative. Blood culture x2 f rom 04/02/2018 showed no growth at 48 hours. Portable chest x-ray dated 04/02/2018 showed subsegment al atelectasis in the right lower lung zone. Left medial upper lobe airspace opacity. Postoperative changes consistent with prior CABG. Ventilation perfusion study dated 04/03/2018 showed intermediat e probability for pulmonary embolus of the left upper lobe. CT angiogram of the chest dated 04/03/20 18 showed left lower chest wall and abdominal gas extending into the anterior soft tissues of the low er neck and medial upper chest. No evidence for pulmonary embolus. HOSPITAL COURSE: The patient was initially admitted to the telemetry unit, presenting with severe le ft lower chest wall pain status post coronary artery bypass grafting on 03/26/2018. The patient unde rwent extensive evaluation including multiple imaging modalities and initial concern for potential le ft-sided pulmonary embolus. Ventilation perfusion study showed intermediate probability at which poi nt the patient received subcutaneous Lovenox. CT angiogram of the chest was performed showing no carito dence for pulmonary embolus; however, there was noted subcutaneous air in the left chest wall extendi ng to the anterior neck. The patient was evaluated by the Thoracic Surgery Service; however, the sub cutaneous air was a result of recent postoperative changes and no recommendation for acute interventi on noted. The patient was noted with mild hypoxemia with recommendations for home oxygen at 1-2 lite rs per minute by nasal cannula. The patient did receive IV antibiotic therapy after concern for a po tential healthcare-associated pneumonia in the left upper lobe. The patient will transition to Levaq uin 500 mg daily to complete a 5-day course of antibiotics after discharge. Overall, the patient did remain clinically stable throughout the hospital course. The patient was noted with hypotension, ia trogenic and related to metoprolol. The patient's metoprolol dose was decreased to 6.25 mg b.i.d. an d will follow up with on an outpatient basis for blood pressure monitoring. I have examined the alice ent at the time of discharge and discussed pertinent laboratory findings, radiographic studies and pl ans for discharge. The patient verbalizes understanding and agreement and ready for discharge on . DISCHARGE MEDICATIONS: 1. Albuterol sulfate 0.63 mg nebulized q.4 hours p.r.n. 2. Enteric-coated aspirin 325 mg p.o. daily. 3. Lipitor 10 mg p.o. daily. 4. Klonopin 0.25 mg p.o. daily. 5. Pepcid 20 mg p.o. b.i.d. 6. [place] 5/325 mg 1-2 tabs p.o. q.4-6 hours p.r.n. 7. Levaquin 500 mg 1 tab p.o. daily x5 days. 8. Metoprolol tartrate 12.5 mg take half a tab p.o. b.i.d. 9. Seroquel 350 mg p.o. at bedtime. FOLLOWUP: The patient will follow up with his primary care provider, Dr. Arely Wall within 7 da ys of discharge. The patient will follow up with Dr. Carvajal with Thoracic Surgery Service and t o call his office for appointment time and date. CONDITION ON DISCHARGE: Stable. ACTIVITY: Ad rex. DIET: Heart healthy. CODE STATUS: Full. DISPOSITION: Home on 04/04/2018. Total time preparing and coordinating discharge was 32 minutes.
[2018-04-04 16:28] VITALS: BP 115/73; TEMP 98.3
== END 2018-04-04 17:56 | disposition home or self-care (01) | DRG 195 ==
LOC: SCSER 17:18 → 2NO 20:38
PROVIDERS: ADMIT Emergency Medicine; ATTEND Emergency Medicine
DX: J18.9 Pneumonia, unspecified organism (principal); R07.89 Other chest pain; E11.9 Type 2 diabetes mellitus without complications; G40.909 Epilepsy, unspecified, not intractable, without status epilepticus; I25.10 Atherosclerotic heart disease of native coronary artery without angina pectoris; I48.91 Unspecified atrial fibrillation; I95.2 Hypotension due to drugs; R09.02 Hypoxemia; D50.0 Iron deficiency anemia secondary to blood loss (chronic); Y95 Nosocomial condition; Z95.1 Presence of aortocoronary bypass graft; T44.7X5A Adverse effect of beta-adrenoreceptor antagonists, initial encounter; Z88.0 Allergy status to penicillin; Z88.2 Allergy status to sulfonamides
CPT/HCPCS: 36415; 36416; 71045; 71275; 78582; 80048; 80053; 80202; 81003; 82550; 82553; 83605; 83690; 84484; 85007; 85025; 85027; 85379; 87040; 93005; 96365; 96375; 99406; A4216; A9540; A9558; J0456; J0692; J0696; J1200; J1650; J1720; J1953; J2270; J3370; J7050; S0028

== ENCOUNTER 2018-04-17 19:20 | Emergency (ER) | payer SELFPAY ==
[~2018-04-17 19:20] MED LIST: Iopamidol 370 76% 100 ML VIAL ONE
[2018-04-17] MEDS ORDERED: Nitroglycerin 4.9 GM Bottle ONE (19:39)
[2018-04-17] MEDS ORDERED: Nitroglycerin 0.4 MG TAB (25 Tab Bottle) ONE (19:40)
--- NOTE | 2018-04-17 19:53 | RAD ---
PORTABLE CHEST: 04/17/18 HISTORY: Chest pain. The lung novak are clear of infiltrate. Heart size is mildly prominent with postop sternotomy change . No vascular congestion or edema noted. IMPRESSION: No acute process. POS: [facility]
[2018-04-17] MEDS ORDERED: Acetaminophen 500 MG TAB ONE (20:06)
[2018-04-17 20:10] LABS: #Basophils 0.2 thou/uL (0.0-0.2); #Eosinphils 0.4 thou/uL (0.0-0.7); #Lymphocytes 4.5 thou/uL (1.20-3.40); #Neutrophils 6.7 thou/uL (1.40-6.50); %Basophils 1.4 % (0.0-1.0); %Eosinophils 2.8 % (0.0-10.0); %Lymphocytes 35.2 % (21.0-51.0); %Monocytes 8.1 % (0.0-10.0); %Neutrophils 52.5 % (42.0-75.0); Mean Corpuscular HGB CONC 34.3 g/dL (32.0-36.0); Mean Corpuscular Volume 87.6 fL (78.0-98.0); Mean Platelet Volume 7.9 fL (7.4-10.4); Platelet Count 388 thou/uL (130-400); RBC Distribution Width 12.8 % (11.5-14.5); Red Blood Cell (RBC) Count 4.32 mill/uL (4.70-6.10); White Blood Cell (WBC) Count 12.8 thou/uL (4.8-10.8)
[2018-04-17 20:15] LABS: Prothrombin Time 13.4 SEC (12.0-14.7)
[2018-04-17 20:16] LABS: PTT 33.2 SEC (22.9-36.1)
[2018-04-17] MEDS ORDERED: Nitroglycerin 2% Ointment 1 INCH/1 GM Packet ONE (20:21)
[2018-04-17] MEDS ORDERED: Morphine 4 MG/ML Carpuject ONE ×2 (20:21→22:05)
[2018-04-17 20:26] LABS: ALT (SGPT) 21 U/L (8-55); AST (SGOT) 19 U/L (5-34); Albumin 4.1 g/dL (3.5-5.0); Alkaline Phosphatase 96 U/L (40-150); Anion Gap 16 mmol/L (10-20); BUN (Urea Nitrogen) 11 mg/dL (8.9-20.6); Bilirubin, Total 0.3 mg/dL (0.2-1.2); CK (CPK) 50 U/L (30-200); CKMB 0.6 ng/mL (0-6.6); Calc. Creatinine Clearance 0 mL/min (70-130); Calcium 9.7 mg/dL (7.8-10.44); Carbon Dioxide 21 mmol/L (22-29); Chloride 107 mmol/L (98-107); Estimated GFR-MDRD Greater than 90; Globulin 3.6 g/dL (2.4-3.5); Glucose 70 mg/dL (70-105); Lipase 33 U/L (8-78); Potassium 4.3 mmol/L (3.5-5.1); Protein, Total 7.7 g/dL (6.0-8.3); Sodium 140 mmol/L (136-145); Troponin I 0.013 ng/mL (< 0.028)
[2018-04-17] MEDS ORDERED: methylPREDNISolone Sod Succ/PF 125 MG/2 ML VIAL ONE (20:44)
[2018-04-17] MEDS ORDERED: diphenhydrAMINE 50 MG/ML VIAL ONE (20:44)
[2018-04-17] MEDS ORDERED: Famotidine/PF 20 mg/2ml Vial ONE (20:44)
--- NOTE | 2018-04-17 21:49 | CT ---
CT ANGIO CHEST WITH CONTRAST: 04/17/18 Multiple axial tomograms obtained through the chest with IV enhancement following pulmonary angio pro tocol with multiplanar reconstruction and 3D postprocessing. INDICATIONS: Chest pain. FINDINGS: Pulmonary arteries show adequate enhancement. No evidence of pulmonary embolus identified to the segm ental level. The lung novak are clear. The mediastinum is unremarkable. Postop sternotomy changes are noted. Ther e is no evidence of mediastinal hematoma. Thoracic aorta is unremarkable. No evidence of dissection. Images through upper abdomen are unremarkable. IMPRESSION: 1. No evidence of pulmonary embolus. 2. No acute lung process identified. POS: [facility]
[2018-04-17 23:28] LABS: Troponin I 0.019 ng/mL (< 0.028)
[2018-04-17] MEDS ORDERED: HYDROcodone/Acetaminophen 5/325 mg Tablet ONE (23:35)
== END 2018-04-17 23:40 | disposition home or self-care (01) ==
LOC: SCSER 19:20
DX: R07.9 Chest pain, unspecified (principal); Z71.6 Tobacco abuse counseling; E11.9 Type 2 diabetes mellitus without complications; I25.2 Old myocardial infarction; I10 Essential (primary) hypertension; Z79.82 Long term (current) use of aspirin; G40.909 Epilepsy, unspecified, not intractable, without status epilepticus; I48.91 Unspecified atrial fibrillation; F17.210 Nicotine dependence, cigarettes, uncomplicated; Z79.899 Other long term (current) drug therapy
CPT/HCPCS: 71045; 71275; 80053; 82553; 83690; 83880; 84484; 85025; 85610; 85730; 93005; 94760; 96361; 96374; 96375; 96376; 99406; J1200; J2270; J2930; S0028

== ENCOUNTER 2018-04-18 20:40 | Emergency (ER) | payer SELFPAY ==
[2018-04-18] MEDS ORDERED: Acetaminophen 325 MG TAB ONE (21:16)
[2018-04-18 21:18] LABS: ALT (SGPT) 24 U/L (8-55); AST (SGOT) 16 U/L (5-34); Albumin 4.2 g/dL (3.5-5.0); Alkaline Phosphatase 94 U/L (40-150); Anion Gap 17 mmol/L (10-20); BUN (Urea Nitrogen) 12 mg/dL (8.9-20.6); Bilirubin, Total 0.2 mg/dL (0.2-1.2); Calc. Creatinine Clearance 0 mL/min (70-130); Calcium 9.9 mg/dL (7.8-10.44); Carbon Dioxide 18 mmol/L (22-29); Chloride 108 mmol/L (98-107); Estimated GFR-MDRD Greater than 90; Globulin 3.6 g/dL (2.4-3.5); Glucose 154 mg/dL (70-105); Lipase 26 U/L (8-78); Potassium 4.4 mmol/L (3.5-5.1); Protein, Total 7.8 g/dL (6.0-8.3); Sodium 139 mmol/L (136-145)
[2018-04-18 21:19] LABS: CKMB 0.7 ng/mL (0-6.6); Troponin I Less than 0.010 ng/mL (< 0.028)
[2018-04-18] MEDS ORDERED: HYDROcodone/Acetaminophen 5/325 mg Tablet ONE (21:22)
[2018-04-18] MEDS ORDERED: Morphine 4 MG/ML Carpuject ONE (22:10)
[2018-04-18 23:21] LABS: Troponin I Less than 0.010 ng/mL (< 0.028)
== END 2018-04-18 23:45 | disposition home or self-care (01) ==
LOC: SCSER 20:40
DX: R07.9 Chest pain, unspecified (principal); E11.9 Type 2 diabetes mellitus without complications; I25.2 Old myocardial infarction; F41.9 Anxiety disorder, unspecified; F17.210 Nicotine dependence, cigarettes, uncomplicated; G40.909 Epilepsy, unspecified, not intractable, without status epilepticus; I48.91 Unspecified atrial fibrillation; Z79.82 Long term (current) use of aspirin; Z79.899 Other long term (current) drug therapy
CPT/HCPCS: 80053; 82553; 83690; 83880; 84484; 93005; 96361; 96374; J2270

== ENCOUNTER 2018-04-25 19:14 | Observation (INO) | payer SELFPAY ==
[2018-04-25] MEDS ORDERED: Nitroglycerin 2% Ointment 1 INCH/1 GM Packet ONE (19:24)
[2018-04-25 19:37] LABS: #Basophils 0.1 thou/uL (0.0-0.2); #Eosinphils 0.4 thou/uL (0.0-0.7); #Lymphocytes 4.3 thou/uL (1.20-3.40); #Monocytes 0.8 thou/uL (0.11-0.59); #Neutrophils 6.8 thou/uL (1.40-6.50); %Eosinophils 2.9 % (0.0-10.0); %Lymphocytes 34.4 % (21.0-51.0); %Monocytes 6.6 % (0.0-10.0); %Neutrophils 55.1 % (42.0-75.0); Hemoglobin 13.6 g/dL (14.0-18.0); Mean Corpuscular HGB CONC 33.3 g/dL (32.0-36.0); Mean Corpuscular Hemoglobin 29.9 pg (27.0-31.0); Mean Corpuscular Volume 89.8 fL (78.0-98.0); Mean Platelet Volume 7.8 fL (7.4-10.4); Platelet Count 318 thou/uL (130-400); Red Blood Cell (RBC) Count 4.56 mill/uL (4.70-6.10); White Blood Cell (WBC) Count 12.4 thou/uL (4.8-10.8)
[2018-04-25 19:51] LABS: ALT (SGPT) 28 U/L (8-55); AST (SGOT) 21 U/L (5-34); Albumin 4.1 g/dL (3.5-5.0); Alkaline Phosphatase 89 U/L (40-150); Anion Gap 14 mmol/L (10-20); BUN (Urea Nitrogen) 14 mg/dL (8.9-20.6); Bilirubin, Total 0.3 mg/dL (0.2-1.2); CK (CPK) 49 U/L (30-200); Calc. Creatinine Clearance 0 mL/min (70-130); Calcium 9.5 mg/dL (7.8-10.44); Carbon Dioxide 24 mmol/L (22-29); Chloride 108 mmol/L (98-107); Estimated GFR-MDRD Greater than 90; Globulin 3.1 g/dL (2.4-3.5); Glucose 118 mg/dL (70-105); Protein, Total 7.2 g/dL (6.0-8.3); Sodium 142 mmol/L (136-145)
[2018-04-25 19:54] LABS: CKMB 0.6 ng/mL (0-6.6); Troponin I Less than 0.010 ng/mL (< 0.028)
[2018-04-25] MEDS ORDERED: Ketorolac Tromethamine 30 MG/ML VIAL ONE ×2 (19:58→22:16)
--- NOTE | 2018-04-25 20:27 | RAD ---
PORTABLE UPRIGHT FRONTAL CHEST RADIOGRAPH COMPARISON: 04/17/18. HISTORY: Chest pain. FINDINGS: The heart and mediastinal contours are stable. Stable midline sternotomy wires are present. Stable in creased linear interstitial densities noted bilaterally. No focal consolidation or alveolar edema. IMPRESSION: No acute findings. POS: [facility]
[2018-04-25] MEDS ORDERED: Acetaminophen 500 MG TAB ONE (20:56)
[2018-04-25] MEDS ORDERED: methylPREDNISolone Sod Succ/PF 125 MG/2 ML VIAL ONE (22:16)
--- NOTE | 2018-05-05 00:29 | EKG ---
Test Reason : Blood Pressure : / mmHG Vent. Rate : 092 BPM Atrial Rate : 092 BPM P-R Int : 148 ms QRS Dur : 086 ms QT Int : 346 ms P-R-T Axes : 043 068 097 degrees QTc Int : 427 ms Normal sinus rhythm Possible Left atrial enlargement Cannot rule out Anterior infarct , age undetermined Abnormal ECG Confirmed by KHUSHBOO MANRIQUEZ, HUNG ([id number]), editor news FROY CHEUNG ([id number]) on 05/05/2018 12:29:47 AM Referred By: Confirmed By:HUNG CUELLO MD
[2018-05-18] MEDS ORDERED: Acetaminophen 325 MG TAB ONE (08:35)
== END 2018-04-25 22:40 | disposition left against medical advice (07) ==
LOC: SCSER 19:14 → ERHOLD 19:23 → UNDOADMOB 22:17 → ERHOLD 22:17 → SCSEROBS 22:17 → UNDODISOB 22:40 → ERHOLD 22:40 → SCSER 22:40 → IMCU/EMU 04-26 00:15 → UNDOADMOB 04-26 00:15 → IMCU/EMU 04-26 02:23 → SCSEROBS 04-26 02:23 → ERHOLD 04-26 02:23 → UNDODISOB 04-28 22:40 → ERHOLD 05-02 09:29
PROVIDERS: ADMIT Internal Medicine; ATTEND Internal Medicine
DX: R07.9 Chest pain, unspecified (principal); F17.210 Nicotine dependence, cigarettes, uncomplicated; E66.9 Obesity, unspecified; F41.9 Anxiety disorder, unspecified; Z79.82 Long term (current) use of aspirin; Z79.899 Other long term (current) drug therapy; Z88.0 Allergy status to penicillin; Z88.2 Allergy status to sulfonamides; Z91.041 Radiographic dye allergy status; Z91.013 Allergy to seafood; Z99.81 Dependence on supplemental oxygen; Z95.1 Presence of aortocoronary bypass graft
CPT/HCPCS: 71045; 80053; 82550; 82553; 84484; 85025; 93005; 96374; 96375; 96376; 99406; J1885; J2930

== ENCOUNTER 2018-05-04 23:21 | Observation (INO) | payer SELFPAY ==
[2018-05-04] MEDS ORDERED: Ondansetron HCl/PF 4 MG/2 ML Vial ONE (23:36)
[2018-05-04 23:46] LABS: #Basophils 0.1 thou/uL (0.0-0.2); #Eosinphils 0.4 thou/uL (0.0-0.7); #Lymphocytes 4.5 thou/uL (1.20-3.40); #Monocytes 0.8 thou/uL (0.11-0.59); #Neutrophils 9.3 thou/uL (1.40-6.50); %Basophils 0.8 % (0.0-1.0); %Eosinophils 2.5 % (0.0-10.0); %Lymphocytes 29.7 % (21.0-51.0); Hemoglobin 13.4 g/dL (14.0-18.0); Mean Corpuscular HGB CONC 34.5 g/dL (32.0-36.0); Mean Corpuscular Volume 86.8 fL (78.0-98.0); Mean Platelet Volume 8.1 fL (7.4-10.4); Platelet Count 275 thou/uL (130-400); RBC Distribution Width 13.9 % (11.5-14.5); Red Blood Cell (RBC) Count 4.48 mill/uL (4.70-6.10)
[2018-05-04] MEDS ORDERED: Ketorolac Tromethamine 30 MG/ML VIAL ONE (23:48)
[2018-05-04] MEDS ORDERED: diphenhydrAMINE 50 MG/ML VIAL ONE (23:48)
[2018-05-04] MEDS ORDERED: Famotidine/PF 20 mg/2ml Vial ONE (23:48)
[2018-05-04] MEDS ORDERED: methylPREDNISolone Sod Succ/PF 125 MG/2 ML VIAL ONE (23:48)
--- NOTE | 2018-05-04 23:49 | RAD ---
PORTABLE CHEST: 05/04/18 HISTORY: Chest pain. Cardiomegaly with postop sternotomy change. The lung novak are clear. No evidence of vascular conge stion or edema. IMPRESSION: No acute finding or interval change from prior exam of 04/25/18. POS: [facility]
[2018-05-04 23:58] LABS: ALT (SGPT) 25 U/L (8-55); AST (SGOT) 15 U/L (5-34); Albumin 4.3 g/dL (3.5-5.0); Alkaline Phosphatase 83 U/L (40-150); Anion Gap 16 mmol/L (10-20); BUN (Urea Nitrogen) 14 mg/dL (8.9-20.6); Bilirubin, Total 0.3 mg/dL (0.2-1.2); CK (CPK) 38 U/L (30-200); Calc. Creatinine Clearance 0 mL/min (70-130); Calcium 10.2 mg/dL (7.8-10.44); Carbon Dioxide 23 mmol/L (22-29); Chloride 105 mmol/L (98-107); Estimated GFR-MDRD Greater than 90; Globulin 3.6 g/dL (2.4-3.5); Glucose 115 mg/dL (70-105); Potassium 3.6 mmol/L (3.5-5.1); Protein, Total 7.9 g/dL (6.0-8.3); Sodium 140 mmol/L (136-145)
[2018-05-04 23:59] LABS: CKMB 0.4 ng/mL (0-6.6)
[2018-05-05] MEDS ORDERED: Morphine 4 MG/ML Carpuject ONE ×2 (00:13→01:07)
[2018-05-05 01:23] LABS: Troponin I Less than 0.010 ng/mL (< 0.028)
[2018-05-05 03:21] VITALS: BMI 36.2
[2018-05-05 03:46] LABS: Troponin I Less than 0.010 ng/mL (< 0.028)
[2018-05-05 06:16] LABS: Troponin I 0.021 ng/mL (< 0.028)
[2018-05-05] MEDS ORDERED: HYDROcodone/Acetaminophen 5/325 mg Tablet PO PRN ×2 (07:32)
[2018-05-05] MEDS ORDERED: HumaLOG 300 UNITS/3 ML VIAL SC PRN (07:32)
[2018-05-05] MEDS ORDERED: Dextrose 50% Abboject 50 ML SYRINGE SLOW IVP PRN (07:32)
[2018-05-05] MEDS ORDERED: Dextrose 5% in Water 1,000 ML IV PRN (07:32)
[2018-05-05] MEDS ORDERED: Albuterol Sulfate 1.25 MG/3 ML NEB NEB PRN (07:36)
[2018-05-05] MEDS ORDERED: Aspirin 325 MG TAB PO SCH (09:00)
[2018-05-05] MEDS: clonazePAM 0.5 MG TAB PO SCH ×2 (09:29→20:20)
--- NOTE | 2018-05-05 09:29 | HP ---
DATE OF SERVICE: 05/05/2018 PRIMARY CARE PROVIDER: Dr. Wall. CHIEF COMPLAINT: Chest pain. HISTORY OF PRESENT ILLNESS: This is a 37-year-old male with history of CABG last month, who presents to the emergency room complaining of chest pain. He reports the onset around 21:30 last night while sitting, rates it at 8/10 and states that it radiated across his chest and felt like something was s itting on his chest. In addition, there was radiation to his jaw, nausea, lightheadedness, abdominal pain, and heart fluttering sensation. The patient took 325 mg aspirin, denies any change in symptom s. Due to the severity of symptoms, he presented to the emergency room. He denies any vomiting, shortness of breath, diarrhea. He denies any precipitating factors and estim ates he has had about 7 episodes of chest pain since his CABG. One improving factor is warm coffee; however, there were no relieving factors. He denies any shortness of breath, but does note an interm ittent dry cough over the past couple of days. His pain is better, sitting up, but also not entirely relieved. In the emergency room, patient received Zofran 4 mg, aspirin 324 mg, Toradol 30 mg, Benadryl 50 mg, m ethylprednisolone 125 mg IV, famotidine 20 mg IV, morphine 4 mg IV x2, ketorolac IV and diphenhydrami ne IV. ALLERGIES TO MEDICATIONS: 1. IODINE and SHELLFISH. 2. PENICILLIN 3. SULFA. MEDICATIONS: Reconciled with the patient: 1. Aspirin 325 mg daily. 2. Albuterol nebulizer every 4 hours as needed. 3. Lipitor 10 mg at bedtime. 4. Klonopin 0.5 mg b.i.d. He denies any change in this medication. 5. Pepcid 20 mg b.i.d. 6. Metoprolol tartrate 12.5 mg 1/2 tablet b.i.d. 7. Seroquel 400 mg at bedtime. 8. Amiodarone 200 mg b.i.d. 9. Dilantin extended release 200 mg b.i.d. PAST MEDICAL HISTORY: 1. Coronary artery disease with history of bypass in 03/2018. 2. Diabetes mellitus type 2, diet controlled. 3. Epilepsy. 4. Atrial fibrillation. 5. Mood disorder. PAST SURGICAL HISTORY: 1. CABG 03/2018. 2. Left thumb surgery. SOCIAL HISTORY: The patient lives with his and sister, his , Franny is his surrogate dec ision maker, he uses tobacco 3/4 of a pack per day. Denies any alcohol. FAMILY HISTORY: Significant for heart disease. REVIEW OF SYSTEMS: Positive for nausea, lightheadedness, abdominal pain and a fluttering sensation i n his chest, as well as an intermittent dry cough for the past 2 days. Negative for vomiting, shortn ess of breath, diarrhea or change in urine. All remaining review of systems reviewed and negative. PHYSICAL EXAMINATION: VITAL SIGNS: Blood pressure 106/65, pulse 72, temperature 98.1, satting 95% on 4 liters nasal cannul a. GENERAL: Awake, alert and responsive. Appears uncomfortable with grimacing in pain, but no extreme distress. HEENT: Pupils are equal and round. Oral mucosa is pink and appears dry. NECK: Supple. Tenderness to palpation just inferior to the lateral aspect of the left side of his j aw, no palpable abnormalities and had no overlying skin changes. LYMPHATICS: No anterior cervical or supraclavicular lymphadenopathy. LUNGS: Clear to auscultation bilateral with good air movement. No audible wheezing, rhonchi or rale s. HEART: Normal S1, S2, regular rate and rhythm, no audible murmurs. Distant heart sounds. ABDOMEN: Soft. Present bowel sounds. Nontender and nondistended. EXTREMITIES: Trace pitting edema in the right lower extremity consistent with his bypass surgery. N o tenderness to palpation. SKIN: Well-healed chest surgical incision, healing abdominal smaller incisions with crusting on them . PSYCHIATRIC: The patient appears euthymic, linear, logical, goal directed thought process. IMAGING DATA AND LABORATORY DATA: 1. CT angiogram report reviewed, negative for PE, moderate cardiomegaly, pulmonary vascular congesti on with bilateral ground glass opacities which may be edema. 2. EKG sinus rhythm, normal axis, QT corrected is 446 3. Abnormal R-wave progression, no ST changes. 4. Chest x-ray personally reviewed negative for acute change. 5. CBC; 15, 13.4, 38.9 and 275. 6. Renal panel: 140, 3.6, 105, 23, 14, 0.89, 115. 7. LFTs normal. 8. Troponin x3 are negative. IMPRESSION: 1. Chest pain in a patient with known coronary artery disease, status post bypass one month ago, in the context of a possible pulmonary edema on CT angiogram along with hypotension. 2. Epilepsy. 3. History of atrial fibrillation on amiodarone. 4. Mood disorder. 5. Ongoing tobacco use. 6. Prolonged QT. PLAN: 1. Observation status in the hospital. 2. Cardiology consultation given the ongoing pain, known coronary artery disease and recent surgery. We will also order echocardiogram. 3. Cardiovascular Surgery consult placed from the emergency room, we will cancel this consult now an d await recommendations from Cardiology first as based on CT exam, there is no acute indication for s urgery. 4. Managing pain and balancing patient's blood pressure. We will order [place] which he said has work ed in the past. Holding on morphine now due to the low normal blood pressure currently. 5. We will order the metoprolol, withhold parameters, continue aspirin and statin. 6. Ordering clonazepam, withhold orders, as well as his usual Dilantin and Seroquel. 7. Avoiding medications that could also prolong the QT interval as the patient is on Seroquel and am iodarone with a slightly prolonged QT. We will order Reglan if needed for nausea. 8. P.r.n. albuterol. 9. Deep venous thrombosis prophylaxis. The patient is ambulatory, we will use SCDs. 10. Gastrointestinal prophylaxis not indicated. We will continue his home proton pump inhibitor. 11. Code status is FULL and surrogate decision maker is his , Franny. 12. I reviewed the plan of care with the patient. No questions or further needs at end of evaluatio n.
[2018-05-05] MEDS: Amiodarone 200 MG TAB PO SCH ×2 (09:31→20:19)
[2018-05-05] MEDS: Famotidine 20 MG TAB PO SCH ×2 (09:31→19:45)
[2018-05-05] MEDS: Metoprolol Tartrate 25 MG TAB PO SCH ×2 (09:31→20:20)
--- NOTE | 2018-05-05 11:29 | PRG ---
DATE OF SERVICE: 05/05/2018 SUBJECTIVE: Mr. Batres is brought back here for observation for recurrent chest pain. The pain is across his chest, it is continuous and hurts with a deep breath. OBJECTIVE: VITAL SIGNS: Blood pressure is 114/58, pulse 69. LUNGS: Clear. CARDIAC: Normal S1, normal S2. ASSESSMENT: 1. Coronary artery disease. 2. The patient's extensive chest pain prior to the surgery, not all of which was anginal. We had a long discussion with the patient and his prior to surgery explaining that he would almost certai nly continue to have some chest pain postoperatively, which indeed has happened. The current pain do es not appear anginal to prolonged nature and the cardiac enzymes are within normal limits. There ar e all negative. EKG shows no ischemia. We will plan to start anti-inflammatories. 3. Need to really try to avoid narcotic pain medicines.
[2018-05-05] MEDS: Ketorolac Tromethamine 30 MG/ML VIAL IVP SCH ×2 (11:58→18:14)
[2018-05-05] MEDS: HumaLOG 300 UNITS/3 ML VIAL SC PRN ×2 (12:06→18:17)
[2018-05-05] MEDS ORDERED: Acetaminophen 325 MG TAB PO PRN (14:40)
--- NOTE | 2018-05-05 15:45 | CT ---
PRELIMINARY REPORT/[facility]/EMERGENTY AFTER-HOURS PROCEDURE CT Angiography Chest With Intravenous Contrast CLINICAL HISTORY: 37 years old, male; Pain; Chest pain; Prior surgery; Surgery date: <1 month; Surgery type: Cabg 4Bves narda; Patient HX: Patient presents for evaluation of pain, patient presents for evaluation of swelling , to the right ankle, patient presents for evaluation of tenderness, denies inability to bear weight. TECHNIQUE: Axial computed tomographic angiography images of the chest with intravenous contrast using pulmonary embolism protocol. MIP reconstructed images were created and reviewed. CONTRAST: 85 mL of [id number] administered intravenously. COMPARISON: No relevant prior studies available. FINDINGS: Pulmonary arteries: No acute findings. No pulmonary embolism. Aorta: No acute findings. No thoracic aortic aneurysm. Lungs: Pulmonary vascular congestion with bilateral dependent ground glass opacities may reflect deve loping edema. Pleural space: No acute findings. No significant effusion. No pneumothorax. Heart: Moderate cardiomegaly. CABG changes. No significant pericardial effusion. No evidence of RV dy sfunction. Bones/joints: There are median sternotomy changes. No acute fracture. No dislocation. Soft tissues: See above. Lymph nodes: No acute findings. No enlarged lymph nodes. Upper abdomen: Liver demonstrates fatty infiltration without visible focal mass. IMPRESSION: No pulmonary embolism. Pulmonary vascular congestion with bilateral dependent ground glass opacities may reflect developing edema. Moderate cardiomegaly. Thank you for allowing us to participate in the care of your patient. Dictated and Authenticated by: Yessi Shetty MD 05/05/2018 1:45 AM Central Time ([place] & [place]) FINAL REPORT I agree with the preliminary report provided. No definite pulmonary embolism is evident. There is subsegmental volume loss of the left lower lobe. Bibasilar ground-glass which may reflect subsegment al volume versus a nonspecific alveolitis. There is extensive fatty infiltration of the liver with a alice of focal fatty sparing in the raza hepatitis. Stable to a comparison dated 04/17/18. POS: [facility]
--- NOTE | 2018-05-05 16:25 | PDOC.EVN ---
Event Note - Event Note Event Note: Pt's pain remains uncontrolled with tylenol, norco, and toradol. Adding a lidocaine patch as another option for pain management.
[2018-05-05] MEDS ORDERED: Lidocaine 5% Patch TD SCH (17:00)
[2018-05-05] MEDS ORDERED: Atorvastatin Calcium 10 MG TAB PO SCH (21:00)
[2018-05-06 00:10] VITALS: TEMP 96.1
[2018-05-06] MEDS: Ketorolac Tromethamine 30 MG/ML VIAL IVP SCH (00:16)
[2018-05-06] MEDS ORDERED: Sodium Chloride 0.9% 1,000 ML IV SCH (01:00)
[2018-05-06 01:55] VITALS: BP 126/63
[2018-05-06] MEDS ORDERED: Lidocaine Patch Removal TOP SCH (05:00)
--- NOTE | 2018-05-06 12:19 | DIS ---
PRIMARY CARE PHYSICIAN: Dr. Arely Wall DATE OF ADMISSION: 05/05/2018 DATE OF DISCHARGE: The patient left AMA colorer machine 05/06/2018 at 0130. CONSULTATIONS: None. PROCEDURES: Echocardiogram 05/05/2018, showed EF 60-65%, normal mitral valve, normal aortic valve, n ormal tricuspid valve with trace TR. HISTORY AND PHYSICAL: Mr. Batres is a 37-year-old male with history of CABG about 1 month ago, who p resented to the emergency department with chest pain. It occurred spontaneously around 2130 while he was sitting, not doing anything. He described a heart fluttering sensation, felt lightheaded, had r adiation of the pain to his jaw with some nausea. Workup in the emergency department showed normal EKG except for prolonged QT, the patient continues t o smoke, he remained in sinus rhythm on amiodarone. CT angiogram showed pulmonary edema. The patient was placed in observation. He was initially transferred to room 247, overnight, he felt like his pain was not being adequately controlled and left against medical advice at 0130. The patient was not seen or examined at the time of discharge. DISCHARGE MEDICATIONS: Resume his home medications. DISCHARGE ACTIVITY: As tolerated. DISCHARGE DIET: Heart healthy recommended. FOLLOWUP APPOINTMENTS: The patient is to keep his already scheduled appointments.
--- NOTE | 2018-05-09 15:29 | EKG ---
Test Reason : Blood Pressure : / mmHG Vent. Rate : 088 BPM Atrial Rate : 088 BPM P-R Int : 154 ms QRS Dur : 088 ms QT Int : 356 ms P-R-T Axes : 047 065 106 degrees QTc Int : 430 ms Normal sinus rhythm Left atrial enlargement Possible Inferior infarct , age undetermined Cannot rule out Anterior infarct , age undetermined Nonspecific T wave abnormality Abnormal ECG Confirmed by NISHANT MANRIQUEZ, DOMINIK Freeman ([id number]), editor producer FROY CHEUNG ([id number]) on 05/09/2018 3:28:55 PM Referred By: Confirmed By:DOMINIK DILLARD MD
== END 2018-05-06 01:30 | disposition left against medical advice (07) ==
LOC: SCSER 23:21 → 2SW 05-05 00:40
PROVIDERS: ADMIT Hospitalist; ATTEND Hospitalist
DX: R07.9 Chest pain, unspecified (principal); I25.10 Atherosclerotic heart disease of native coronary artery without angina pectoris; E11.9 Type 2 diabetes mellitus without complications; I48.91 Unspecified atrial fibrillation; G40.909 Epilepsy, unspecified, not intractable, without status epilepticus; F39 Unspecified mood [affective] disorder; F17.210 Nicotine dependence, cigarettes, uncomplicated; Z79.82 Long term (current) use of aspirin; Z79.899 Other long term (current) drug therapy; Z91.041 Radiographic dye allergy status; Z88.0 Allergy status to penicillin; Z88.2 Allergy status to sulfonamides; Z91.013 Allergy to seafood; Z95.1 Presence of aortocoronary bypass graft; Z53.21 Procedure and treatment not carried out due to patient leaving prior to being seen by health care provider
CPT/HCPCS: 36415; 36416; 71045; 71275; 80053; 82550; 82553; 83880; 84484; 85025; 93005; 93010; 93306; 96374; 96375; 96376; G0378; J1200; J1885; J2270; J2405; J2930; S0028

== ENCOUNTER 2018-06-07 20:28 | Inpatient (IN) | payer SELFPAY ==
[2018-06-07 21:14] LABS: ALT (SGPT) 21 U/L (8-55); AST (SGOT) 13 U/L (5-34); Alkaline Phosphatase 84 U/L (40-150); Anion Gap 15 mmol/L (10-20); BUN (Urea Nitrogen) 7 mg/dL (8.9-20.6); Bilirubin, Total 0.4 mg/dL (0.2-1.2); CK (CPK) 56 U/L (30-200); Calc. Creatinine Clearance 0 mL/min (70-130); Calcium 9.4 mg/dL (7.8-10.44); Carbon Dioxide 22 mmol/L (22-29); Chloride 107 mmol/L (98-107); Estimated GFR-MDRD 73; Globulin 3.3 g/dL (2.4-3.5); Glucose 97 mg/dL (70-105); Lipase 33 U/L (8-78); Potassium 3.7 mmol/L (3.5-5.1); Protein, Total 7.3 g/dL (6.0-8.3); Sodium 140 mmol/L (136-145)
[2018-06-07 21:15] LABS: CKMB 0.3 ng/mL (0-6.6); Troponin I Less than 0.010 ng/mL (< 0.028)
[2018-06-07 21:21] LABS: Band 2 % (5-11); Eosinophils 1 % (0-10); Hemoglobin 13.4 g/dL (14.0-18.0); Lymphocytes 16 % (21-51); MDiff Complete? YES; Mean Corpuscular HGB CONC 34.9 g/dL (32.0-36.0); Mean Corpuscular Volume 85.9 fL (78.0-98.0); Mean Platelet Volume 8.5 fL (7.4-10.4); Monocytes 7 % (0-10); Neutrophil 73 % (42-75); PLT Morphology Comment Appears Adequate; Platelet Count 310 thou/uL (130-400); RBC Distribution Width 13.6 % (11.5-14.5); RBC Morphology Normal; Red Blood Cell (RBC) Count 4.48 mill/uL (4.70-6.10); White Blood Cell (WBC) Count 15.8 thou/uL (4.8-10.8)
--- NOTE | 2018-06-07 21:23 | RAD ---
PORTABLE AP CHEST X-RAY 06/07/18 HISTORY: Right sided chest pain for one hour. COMPARISON: 05/04/18. FINDINGS: Postsurgical changes related to median sternotomy are again noted. The cardiac silhouette is magnifie d by projection but does appear mildly enlarged. There are linear densities seen in the right lung ba se probably related to atelectasis. The lungs otherwise appear clear. The chest is otherwise stable f rom prior exam. IMPRESSION: 1. No acute cardiopulmonary process. 2. Mild cardiomegaly. 3. Atelectasis right lung base. POS: [facility]
[2018-06-07] MEDS ORDERED: Nitroglycerin 2% Ointment 1 INCH/1 GM Packet ONE (21:29)
[2018-06-07] MEDS ORDERED: Clopidogrel Bisulfate 75 MG TAB ONE (21:29)
[2018-06-07] MEDS ORDERED: diphenhydrAMINE 50 MG/ML VIAL ONE (21:30)
[2018-06-07] MEDS ORDERED: Famotidine/PF 20 mg/2ml Vial ONE (21:30)
[2018-06-07] MEDS ORDERED: methylPREDNISolone Sod Succ/PF 125 MG/2 ML VIAL ONE (21:30)
[2018-06-07] MEDS ORDERED: Promethazine HCl 25 MG/ML VIAL ONE (22:15)
--- NOTE | 2018-06-07 23:39 | CT ---
CT ANGIOGRAM THORAX WITH IV CONTRAST AND 3D RECONSTRUCTIONS 06/07/18 HISTORY: Intermittent chest pain since CABG in March 2018. Shortness of breath. COMPARISON: 05/05/18. FINDINGS: Postsurgical changes related to CABG are again seen. The heart is mildly enlarged. There is a very small pericardial effusion versus pericardial thickenin g present. This is more prominent than on the prior exam. The thoracic aorta is normal in caliber without evidence of an aortic dissection. No filling defects are seen in the pulmonary arteries to suggest a pulmonary embolus. There is a stable less than 4 mm pulmonary nodule in the right upper lobe. A small right pleural effusion is present. There are parenchymal changes present at each lung base gr eater on the right which is probably related to atelectasis, although developing pneumonia cannot be entirely excluded. Scattered areas of atelectasis are seen within each lower lobe in the right middle lobe. Again noted is diffuse fatty infiltration of the liver with fatty sparring adjacent to the gallbladde r. IMPRESSION: 1. Interval development of a very small right pleural effusion. In addition, there are bibasilar linear and patchy parenchymal opacities at the lung bases, greater on the right probably attributabl e to atelectasis, but developing pneumonia cannot be entirely excluded. 2. Small pericardial effusion and/or pericardial thickening. 3. No CT evidence of a pulmonary embolus. 4. Mild cardiomegaly. 5. Fatty infiltration of the liver. POS: [facility] [place]
[2018-06-08 00:05] LABS: Troponin I Less than 0.010 ng/mL (< 0.028)
[2018-06-08] MEDS ORDERED: Ondansetron ODT 4 MG TAB SL PRN (01:03)
[2018-06-08] MEDS ORDERED: Ondansetron HCl/PF 4 MG/2 ML Vial IVP PRN (01:03)
[2018-06-08] MEDS ORDERED: HYDROcodone/Acetaminophen 5/325 mg Tablet PO PRN ×2 (01:03)
[2018-06-08] MEDS ORDERED: Ketorolac Tromethamine 30 MG/ML VIAL IVP SCH (02:00)
[2018-06-08 02:09] VITALS: BMI 35.5
[2018-06-08 03:49] LABS: Troponin I Less than 0.010 ng/mL (< 0.028)
[2018-06-08] MEDS ORDERED: Mag-Al 1200 mg/1200 mg/30 ML UDCUP PO PRN (03:58)
[2018-06-08] MEDS ORDERED: Calcium Carbonate 500 MG ChewTAB PO PRN (03:58)
[2018-06-08] MEDS ORDERED: Senokot 8.6 MG TAB PO PRN (03:58)
[2018-06-08] MEDS ORDERED: Bisacodyl 5 MG TAB PO PRN (03:58)
[2018-06-08] MEDS ORDERED: Guaifenesin DM 100-10/5 ML UDCUP PO PRN (03:58)
[2018-06-08] MEDS ORDERED: Albuterol Sulfate 1.25 MG/3 ML NEB NEB PRN (04:05)
[2018-06-08] MEDS ORDERED: clonazePAM 0.5 MG TAB PO PRN (04:05)
--- NOTE | 2018-06-08 04:50 | PDOC.EVN ---
Event Note - Event Note Event Note: h&p [id number]
--- NOTE | 2018-06-08 05:26 | HP ---
PRIMARY CARE PHYSICIAN: Dr. aWll. CHIEF COMPLAINT: Chest pain, right-sided. HISTORY OF PRESENT ILLNESS: This is a 37-year-old male with a known history of coronary artery disease, CABG x3 in 04/2018, active tobacco use, atrial fibrillation, type 2 diabetes, hyperlipidemia, prior DVT who presents with a chief complaint of right-sided chest pain described as a sharp pressure accompanied by shortness of breath, nausea, diaphoresis, and dizziness. Patient states that this has been similar to prior issues of chest pain that led to his CABG earlier this year. Patient states that he has also been having upper epigastric pain over the last 3 days and some fevers and chills at home over the last 3 days as well. Patient states that he has been having consistent chest discomfort since his CABG back earlier this year; however, the fever and the cough and the upper epigastric pain are new for him. He endorses a productive cough of greenish sputum as well. REVIEW OF SYSTEMS: As per HPI. Constitutional: Denies any significant weight loss or gain, fevers, and chills are noted as above. HEENT: No new headaches, vision changes, or lightheadedness. Cardiovascular: As described above. Respiratory: As described above. Gastrointestinal: Denies any overt nausea, vomiting, abdominal pain, diarrhea or constipation issues. Genitourinary: Denies any dysuria, change in urinary frequency, quality, quantity, or odor. Musculoskeletal: Denies any new myalgias or arthralgias. Remainder of the review of systems, otherwise negative. PAST MEDICAL HISTORY: As per above 1. Coronary artery disease, status post CABG x3 blood vessels in 03/2018. 2. History of epilepsy. 3. History of mood disorder. 4. Type 2 diabetes. 5. Hypertension. 6. Atrial fibrillation 7. Hyperlipidemia. 8. Prior DVT. 9. Status post left thumb surgery. HOME MEDICATIONS: Current list includes the following, nitroglycerin 0.4 mg sublingual every 5 minutes p.r.n., clonazepam 0.25 mg p.o. daily p.r.n., quetiapine fumarate 350 mg p.o. at bedtime, metoprolol tartrate 12.5 mg p.o. b.i.d., hydrocodone/acetaminophen 5/325 one-two tabs p.o. q.4 hours p.r.n., famotidine 20 mg p.o. b.i.d., atorvastatin calcium 10 mg p.o. daily, amiodarone 200 mg p.o. daily, albuterol sulfate 0.63 mg nebulizer q.4 hours p.r.n. ALLERGIES: Include PENICILLINS, which cause a rash, IODINE with an unspecified reaction. ASPIRIN, SHELLFISH, and SULFA all with unspecified reactions. FAMILY HISTORY: Significant for cardiovascular disease. SOCIAL HISTORY: Active tobacco use approximately 3/4 of a pack a day. No tobacco. No illicit drug use. , lives at home with his and his sister. PHYSICAL EXAMINATION: VITAL SIGNS: Temperature 98.1, pulse of 83, respirations 18, satting 92% on room air with a blood pressure of 136/82. GENERAL: The patient is awake, alert, conversant, no frequent distress, lying in the hospital bed. HEENT: Normocephalic, atraumatic, slightly dry mucous membranes. Extraocular motions are intact. CARDIOVASCULAR: S1, S2. No murmurs, no rubs, no gallops. Pulses 2+ bilateral upper extremities. No pitting pedal edema. RESPIRATORY: Reasonable air movement. No conversational dyspnea. No wheezes, rales, or rhonchi. Clear to auscultation bilaterally. ABDOMEN: Positive bowel sounds, soft, nontender to palpation. MUSCULOSKELETAL: Moving all 4 extremities independently. LABORATORY DATA AND IMAGIN. On 06/07/2018, chest x-ray impression "no acute cardiopulmonary process. Mild cardiomegaly. Atelectasis, right lung base." 2. On 06/07/2018, CTA of the chest impression "interval development of a very small right pleural effusion. In addition, there are bibasilar linear and patchy parenchymal opacities at the lung bases, greater on the right probably attributable to atelectasis, but developing pneumonia cannot be entirely excluded. Small pericardial effusion and/or pericardial thickening. No CT evidence of a pulmonary embolus. Mild cardiomegaly. Fatty infiltration of the liver." ASSESSMENT AND PLAN: A 37-year-old male presenting with a chief complaint of chest pain. 1. Chest pain in the setting of known coronary artery disease. Concern is always for recurrent cardiovascular disease. We will trend troponins, check EKG in the morning, check echocardiogram in the morning, and consult Cardiology. Patient will otherwise resume his home regimen of medications. 2. Elevated D-dimer with a known history of deep venous thrombosis. We will check bilateral lower extremity ultrasounds. CTA was negative for a pulmonary embolus. 3. Concern for the possibility of atelectasis versus pneumonia on CTA. In the setting of also leukocytosis, the patient has been empirically given Levaquin and we will continue on this for the time being. Patient has tolerated his first dose of Levaquin without difficulty. 4. Question of pericardial thickening is noted on CTA. Consider anti- inflammatories, but first we will obtain an echocardiogram of the heart to further delineate the anatomy. 5. Diet: Diabetic, cardiac. 6. Activity: As tolerated. Encouraged the patient to be out of bed. Start incentive spirometry given the noted atelectasis. 7. Deep venous thrombosis prophylaxis with enoxaparin. MTDD
[2018-06-08] MEDS ORDERED: Famotidine/PF 20 mg/2ml Vial SLOW IVP SCH (09:00)
[2018-06-08] MEDS: Nitroglycerin 0.4 MG TAB (25 Tab Bottle) SL SCH (09:00)
[2018-06-08] MEDS: Famotidine 20 MG TAB PO SCH ×2 (09:04→20:19)
[2018-06-08] MEDS: Amiodarone 200 MG TAB PO SCH (09:05)
[2018-06-08] MEDS: Docusate 100 MG CAP PO SCH ×2 (09:05→20:19)
[2018-06-08] MEDS: Atorvastatin Calcium 10 MG TAB PO SCH (09:06)
--- NOTE | 2018-06-08 10:05 | ULT ---
BILATERAL LOWER EXTREMITY VENOUS DUPLEX EXAM: Deep veins of both lower extremities evaluated with color Doppler, spectral analysis, and compression . INDICATION: Lower extremity pain and edema. Assess for deep vein thrombosis. FINDINGS: Deep veins of both lower extremities shown normal blood flow and compression. No evidence of DVT rae ntified in either lower extremity. IMPRESSION: Negative bilateral lower extremity venous duplex exam. POS: [facility]
[2018-06-08] MEDS: Ketorolac Tromethamine 30 MG/ML VIAL IVP PRN ×3 (10:07→23:47)
[2018-06-08] MEDS: Metoprolol Tartrate 25 MG TAB PO SCH ×2 (10:08→20:19)
[2018-06-08] MEDS: Enoxaparin Sodium 30 MG/0.3 ML SYRINGE SC SCH (10:24)
--- NOTE | 2018-06-08 12:32 | PDOC.PN ---
- Subjective Encounter Start Date: 06/08/18 Encounter Start Time: 09:00 Subjective: c/o right sided chest pain, has cough with expectoration of yellow sputum -: no fever, still smokes 1/2 pack cig daily -: says he is complaint with meds and diet - Objective Resuscitation Status: Resuscitation Status FULL:Full Resuscitation MAR Reviewed: Yes Vital Signs & Weight: Vital Signs (12 hours) Temp Pulse Resp BP BP Pulse Ox 06/08/18 08:40 97.4 F L 77 26 H 123/74 92 L 06/08/18 04:42 98.1 F 84 16 129/82 93 L 06/08/18 00:51 98.1 F 83 18 136/82 92 L Weight Weight 227 lb 1.6 oz I&O: 06/07/18 06/08/18 06/09/18 06:59 06:59 06:59 Intake Total 340 Output Total 0 Balance 340 Result Diagrams: 06/07/18 20:45 06/07/18 20:45 Phys Exam - Physical Examination HEENT: PERRLA, moist MMs Neck: no JVD, supple Respiratory: no wheezing, no rales Cardiovascular: RRR, no significant murmur Gastrointestinal: soft, non-tender, positive bowel sounds Musculoskeletal: no edema, pulses present Neurological: non-focal, moves all 4 limbs Psychiatric: A&O x 3 Dx/Plan (1) Chest pain Code(s): R07.9 - CHEST PAIN, UNSPECIFIED Status: Acute Qualifiers: Chest pain type: unspecified Qualified Code(s): R07.9 - Chest pain, unspecified (2) 3-vessel coronary artery disease Status: Chronic Comment: cabg x3 done in march 2018 (3) Dyslipidemia Code(s): E78.5 - HYPERLIPIDEMIA, UNSPECIFIED Status: Chronic (4) Anxiety and depression Code(s): F41.9 - ANXIETY DISORDER, UNSPECIFIED; F32.9 - MAJOR DEPRESSIVE DISORDER, SINGLE EPISODE, UNSPECIFIED Status: Chronic (5) Obesity (BMI 30-39.9) Code(s): E66.9 - OBESITY, UNSPECIFIED Status: Chronic (6) Tobacco abuse Code(s): Z72.0 - TOBACCO USE Status: Chronic - Plan likely has chronic leucocytosis or atleast high normal -: duonebs q6h, plavix. Usg venous doppler is -ve for dvt -: not sure if he is compliant with meds -: has post op cabg changes seen on CTA -: ashley with reflex due to elevated crp levels * . not on anticoagulation for afib? continue amioarone, lipitor, lopressor and seroquel is on levaquin for suspected bronchitis. Review of Systems - Medications/Allergies Allergies/Adverse Reactions: Allergies Allergy/AdvReac Type Severity Reaction Status Date / Time Penicillins Allergy Severe Rash Verified 06/08/18 01:45 iodine Allergy Intermediate Verified 06/08/18 01:45 aspirin Allergy Verified 06/08/18 01:45 shellfish derived Allergy Verified 06/08/18 01:45 Sulfa (Sulfonamide Allergy Verified 06/08/18 01:45 Antibiotics) Medications: Current Medications Al Hydroxide/Mg Hydroxide (Maalox) 30 ml PO Q6H PRN PRN Reason: Heartburn or Indigestion Albuterol Sulfate (Albuterol Sulfate) 0.63 mg NEB Q4H PRN PRN Reason: Dyspnea/Wheezing/SOB Albuterol/Ipratropium (Duoneb) 3 ml NEB [id number] [facility] Amiodarone HCl (Cordarone) 200 mg PO DAILY [facility] Last Admin: 06/08/18 09:05 Dose: 200 mg Atorvastatin Calcium (Lipitor) 10 mg PO DAILY [facility] Last Admin: 06/08/18 09:06 Dose: 10 mg Bisacodyl (Dulcolax) 10 mg PO DAILYPRN PRN PRN Reason: Constipation Calcium Carbonate (Tums) 1,000 mg PO Q4H PRN PRN Reason: Heartburn or Indigestion Clonazepam (Klonopin) 0.25 mg PO DAILYPRN PRN PRN Reason: Anxiety Clopidogrel Bisulfate (Plavix) 75 mg PO DAILY [facility] Docusate Sodium (Colace) 100 mg PO BID [facility] Last Admin: 06/08/18 09:05 Dose: 100 mg Enoxaparin Sodium (Lovenox) 30 mg SC 0900 [facility] Last Admin: 06/08/18 10:24 Dose: Not Given Famotidine (Pepcid) 20 mg PO BID [facility] Last Admin: 06/08/18 09:04 Dose: 20 mg Guaifenesin/Dextromethorphan (Robitussin Dm) 15 ml PO Q4H PRN PRN Reason: Cough Levofloxacin 750 mg/ Device 150 mls @ 100 mls/hr IVPB Q24HR [facility] Ketorolac Tromethamine (Toradol) 15 mg IVP Q6H PRN PRN Reason: Pain Stop: 06/13/18 03:58 Last Admin: 06/08/18 10:07 Dose: 15 mg Metoprolol Tartrate (Lopressor) 12.5 mg PO BID [facility] Last Admin: 06/08/18 10:08 Dose: 12.5 mg Morphine Sulfate (Morphine) 1 mg SLOW IVP Q4H PRN PRN Reason: Pain Last Admin: 06/08/18 09:07 Dose: 1 mg Nitroglycerin (Nitrostat) 0.4 mg SL Q5MIN [facility] Last Admin: 06/08/18 09:00 Dose: 0.4 mg Quetiapine Fumarate (Seroquel) 350 mg PO HS [facility] Senna (Senokot) 2 tab PO HSPRN PRN PRN Reason: Constipation Sodium Chloride (Flush - Normal Saline) 10 ml IVF Q12HR [facility] Last Admin: 06/08/18 10:08 Dose: 10 ml Sodium Chloride (Flush - Normal Saline) 10 ml IVF PRN PRN PRN Reason: Saline Flush
[2018-06-09 04:43] LABS: Anion Gap 12 mmol/L (10-20); BUN (Urea Nitrogen) 12 mg/dL (8.9-20.6); Calc. Creatinine Clearance 133 mL/min (70-130); Carbon Dioxide 25 mmol/L (22-29); Chloride 110 mmol/L (98-107); Estimated GFR-MDRD 75; Glucose 113 mg/dL (70-105); Potassium 3.7 mmol/L (3.5-5.1); Sodium 143 mmol/L (136-145)
[2018-06-09 05:05] LABS: Band 3 % (5-11); Eosinophils 1 % (0-10); Hemoglobin 12.2 g/dL (14.0-18.0); Lymphocytes 16 % (21-51); MDiff Complete? YES; Mean Corpuscular HGB CONC 33.1 g/dL (32.0-36.0); Mean Corpuscular Hemoglobin 30.6 pg (27.0-31.0); Mean Corpuscular Volume 92.4 fL (78.0-98.0); Mean Platelet Volume 7.8 fL (7.4-10.4); Monocytes 6 % (0-10); Neutrophil 74 % (42-75); PLT Morphology Comment Appears Adequate; Platelet Count 341 thou/uL (130-400); RBC Distribution Width 14.9 % (11.5-14.5); White Blood Cell (WBC) Count 20.5 thou/uL (4.8-10.8)
[2018-06-09] MEDS: Ketorolac Tromethamine 30 MG/ML VIAL IVP PRN (06:18)
[2018-06-09] MEDS: Enoxaparin Sodium 30 MG/0.3 ML SYRINGE SC SCH (08:02)
[2018-06-09] MEDS: Atorvastatin Calcium 10 MG TAB PO SCH (08:02)
[2018-06-09] MEDS: Famotidine 20 MG TAB PO SCH ×2 (08:02→20:44)
[2018-06-09] MEDS: Metoprolol Tartrate 25 MG TAB PO SCH ×2 (08:02→20:43)
[2018-06-09] MEDS: Clopidogrel Bisulfate 75 MG TAB PO SCH (08:02)
[2018-06-09] MEDS: Docusate 100 MG CAP PO SCH ×2 (08:02→20:43)
[2018-06-09] MEDS: Amiodarone 200 MG TAB PO SCH (08:02)
[2018-06-09] MEDS: Colchicine 0.6 MG TAB PO SCH ×2 (09:33→20:43)
--- NOTE | 2018-06-09 13:11 | PDOC.PN ---
- Subjective Encounter Start Date: 06/09/18 Encounter Start Time: 10:30 Subjective: feels better but still has right sided chest pain and sob -: developed wheezing - Objective Resuscitation Status: Resuscitation Status FULL:Full Resuscitation MAR Reviewed: Yes Vital Signs & Weight: Vital Signs (12 hours) Temp Pulse Resp BP BP Pulse Ox 06/09/18 12:00 97.4 F L 78 18 112/74 91 L 06/09/18 08:00 97.8 F 75 16 111/69 90 L 06/09/18 07:55 90 L 06/09/18 07:53 70 16 90 L 06/09/18 03:56 98.1 F 73 14 92/53 L 96 Weight Weight 228 lb 14.4 oz I&O: 06/08/18 06/09/18 06/10/18 06:59 06:59 06:59 Intake Total 340 1030 Output Total 0 Balance 340 1030 Result Diagrams: 06/09/18 04:20 06/09/18 04:20 Phys Exam - Physical Examination HEENT: PERRLA, moist MMs Neck: no JVD, supple Respiratory: no rales, wheezing present Cardiovascular: RRR, no significant murmur Gastrointestinal: soft, non-tender, positive bowel sounds Musculoskeletal: no edema, pulses present Neurological: non-focal, moves all 4 limbs Psychiatric: normal affect, A&O x 3 Dx/Plan (1) Chest pain Code(s): R07.9 - CHEST PAIN, UNSPECIFIED Status: Acute Qualifiers: Chest pain type: unspecified Qualified Code(s): R07.9 - Chest pain, unspecified (2) 3-vessel coronary artery disease Status: Chronic Comment: cabg x3 done in march 2018 (3) Dyslipidemia Code(s): E78.5 - HYPERLIPIDEMIA, UNSPECIFIED Status: Chronic (4) Anxiety and depression Code(s): F41.9 - ANXIETY DISORDER, UNSPECIFIED; F32.9 - MAJOR DEPRESSIVE DISORDER, SINGLE EPISODE, UNSPECIFIED Status: Chronic (5) Obesity (BMI 30-39.9) Code(s): E66.9 - OBESITY, UNSPECIFIED Status: Chronic (6) Tobacco abuse Code(s): Z72.0 - TOBACCO USE Status: Chronic (7) COPD (chronic obstructive pulmonary disease) Status: Acute Qualifiers: COPD type: chronic bronchitis - Plan is on colchicine and prednsione, nebs -: continue amiodarone, plavix, lopressor -: dc toradol and morphine, switch to inpatient status -: to ambulate as tolerated in hallway -: wbc is 20k, might go up with steroids, ashley levels are pending * . Review of Systems - Medications/Allergies Allergies/Adverse Reactions: Allergies Allergy/AdvReac Type Severity Reaction Status Date / Time Penicillins Allergy Severe Rash Verified 06/08/18 01:45 iodine Allergy Intermediate Verified 06/08/18 01:45 aspirin Allergy Verified 06/08/18 01:45 shellfish derived Allergy Verified 06/08/18 01:45 Sulfa (Sulfonamide Allergy Verified 06/08/18 01:45 Antibiotics) Medications: Current Medications Al Hydroxide/Mg Hydroxide (Maalox) 30 ml PO Q6H PRN PRN Reason: Heartburn or Indigestion Albuterol Sulfate (Albuterol Sulfate) 0.63 mg NEB Q4H PRN PRN Reason: Dyspnea/Wheezing/SOB Albuterol/Ipratropium (Duoneb) 3 ml NEB [id number] [facility] Last Admin: 06/09/18 07:53 Dose: 3 ml Amiodarone HCl (Cordarone) 200 mg PO DAILY [facility] Last Admin: 06/09/18 08:02 Dose: 200 mg Atorvastatin Calcium (Lipitor) 10 mg PO DAILY [facility] Last Admin: 06/09/18 08:02 Dose: 10 mg Bisacodyl (Dulcolax) 10 mg PO DAILYPRN PRN PRN Reason: Constipation Calcium Carbonate (Tums) 1,000 mg PO Q4H PRN PRN Reason: Heartburn or Indigestion Clonazepam (Klonopin) 0.25 mg PO DAILYPRN PRN PRN Reason: Anxiety Clopidogrel Bisulfate (Plavix) 75 mg PO DAILY [facility] Last Admin: 06/09/18 08:02 Dose: 75 mg Colchicine (Colcrys) 0.6 mg PO BID [facility] Last Admin: 06/09/18 09:33 Dose: 0.6 mg Docusate Sodium (Colace) 100 mg PO BID [facility] Last Admin: 06/09/18 08:02 Dose: 100 mg Enoxaparin Sodium (Lovenox) 30 mg SC 0900 [facility] Last Admin: 06/09/18 08:02 Dose: 30 mg Famotidine (Pepcid) 20 mg PO BID [facility] Last Admin: 06/09/18 08:02 Dose: 20 mg Guaifenesin/Dextromethorphan (Robitussin Dm) 15 ml PO Q4H PRN PRN Reason: Cough Levofloxacin 750 mg/ Device 150 mls @ 100 mls/hr IVPB Q24HR [facility] Last Admin: 06/09/18 00:32 Dose: 150 mls Ketorolac Tromethamine (Toradol) 15 mg IVP Q6H PRN PRN Reason: Pain Stop: 06/13/18 03:58 Last Admin: 06/09/18 06:18 Dose: 15 mg Metoprolol Tartrate (Lopressor) 12.5 mg PO BID [facility] Last Admin: 06/09/18 08:02 Dose: 12.5 mg Nitroglycerin (Nitrostat) 0.4 mg SL Q5MIN [facility] Last Admin: 06/08/18 09:00 Dose: 0.4 mg Quetiapine Fumarate (Seroquel) 350 mg PO HS [facility] Last Admin: 06/08/18 20:19 Dose: 350 mg Senna (Senokot) 2 tab PO HSPRN PRN PRN Reason: Constipation Sodium Chloride (Flush - Normal Saline) 10 ml IVF Q12HR [facility] Last Admin: 06/09/18 08:02 Dose: 10 ml Sodium Chloride (Flush - Normal Saline) 10 ml IVF PRN PRN PRN Reason: Saline Flush
[2018-06-09] MEDS ORDERED: predniSONE 20 MG TAB PO SCH (13:30)
--- NOTE | 2018-06-09 13:38 | CON ---
DATE OF CONSULTATION: 06/09/2018 HISTORY: Mr. Yunier Batres is a 37-year-old white male patient who underwent bypass surgery here on 0 03/25/2018. He has undergone cardiac catheterization at [facility] in [place] prior to [facility] and was found to have three-vessel coronary artery disease. He was scheduled to undergo bypass s urgery at [facility], but left against medical advice. He then again was scheduled for surgery, but again left against medical advice. Apparently, the third time, he also refused surgery. He the n presented here with continuous chest pain that was severe, somewhat worse when he would probably ar ound in bed and nitroglycerin did not seem to help. It was felt that the majority of his pain was pr obably noncardiac, although he did have 3-vessel coronary artery disease. He was placed on colchicin e and the next day, his pain apparently had improved. Discussion was held with him by Dr. Cabrera dinesh or to surgery that now his pain was cardiac in nature and probably would not resolve after bypass vic jordan. On 03/25/2018, he underwent CABG x3 with WATERS to the LAD, saphenous vein grafts to first obtuse dania nal and to the posterior descending artery. There is no mention in the discharge summary of continue d pain after surgery, although the patient states that he continued to have constant chest discomfort on the right side of his chest. He was readmitted here on 04/02/2018, two days after he was discharged. He again was complaining of chest discomfort and a V/Q scan was intermediate probability for pulmonary embolism. He underwent est CTA, which only revealed left lower chest wall and abdominal wall gas extending into the anterior soft tissues of the left neck and medial upper chest. He was seen by Dr. Cabrera at that time and it was recommended that he to be placed on anti-inflammatory drugs; however, he signed out against [facility] advice and did not take any. On 04/17/2018, he was seen in the emergency room with chest pain, he was given intravenous morphine as well as steroids and discharged. Again, he presented on the 04/25/2018 with chest discomfort. January trujillo, he was seen in emergency room on 05/05/2018 with chest pain. He again left against medical advice . He now was admitted with chest discomfort. Chest CTA revealed small right pleural effusion and some atelectasis at the bases. There is a very small pericardial effusion versus pericardial thickening, which apparently was more prominent than prior exams. He states this is the same chest pain that he has had since bypass surgery. The pain is worse with a cough, but not with a deep breath. It is not particularly positional. He has had some cough productive of greenish sputum. Due to leukocytosis and his cough with green sputum, he has been placed on Levaquin. PAST MEDICAL HISTORY: Coronary artery disease, diabetes, hypercholesterolemia, hypertension, history of atrial fibrillation on amiodarone, prior DVT, history of seizures, history of mood disorder. OPERATIONS: CABG, left thumb surgery. MEDICATIONS: Albuterol nebs q.4 hours p.r.n., amiodarone 200 daily, Lipitor 10 mg daily, clonazepam 0.25 p.r.n., Pepcid 20 b.i.d., [place] q.4 hours p.r.n., metoprolol 12.5 b.i.d., nitroglycerin p.r.n., Seroquel 350 at bedtime. ALLERGIES: PENICILLIN, IODINE (pruritus), ASPIRIN (he states that his throat swells); however, he is taking ASPIRIN at the present time, SULFA. SOCIAL HISTORY: Smokes 3/4 pack per day. He does not drink. FAMILY HISTORY: Positive for coronary artery disease. REVIEW OF SYSTEMS: Twelve point review of systems otherwise unremarkable. PHYSICAL EXAMINATION: VITAL SIGNS: Blood pressure 111/69, pulse 75. HEENT: PERRL. NECK: Supple. CHEST: Clear. CARDIAC: S1 and S2 are normal, without any S3, S4, murmurs or rubs. ABDOMEN: Normal bowel sounds, without tenderness, organomegaly. EXTREMITIES: Revealed no clubbing, cyanosis or edema. NEUROLOGIC: Grossly intact. SKIN: Warm and dry. MUSCULOSKELETAL: Revealed no palpable chest wall tenderness. LABORATORY DATA AND IMAGING: EKG reveals sinus tachycardia, otherwise unremarkable. Echocardiogram revealed no pericardial effusion, ejection fraction of 50%-55%, left atrial enlargement, mild mitral regurgitation, mild tricuspid regurgitation. Lower extremity ultrasound revealed no evidence of DVT. Chest CTA revealed no evidence of pulmonary embolism; however, the pericardium appeared to be somew hat thickened. White count 20,500, hemoglobin 12.2, hematocrit 37.0, platelets 341,000. Sed rate 22 . D-dimer 2.20. Sodium 143, potassium 3.7, chloride 110, carbon dioxide 25, BUN 12, creatinine 1.11 . Troponin I's are normal. BNP 137.0. IMPRESSION: 1. Continuous noncardiac chest pain since the time of bypass surgery. 2. Status post coronary artery bypass graft x3 in 03/2018. 3. Noncompliance with the patient signed out against medical advice on multiple admissions. 4. Hypertension. 5. Hypercholesterolemia. 6. Smoker. 7. Positive family history. 8. True aspirin allergy with laryngeal edema with the patient stopping aspirin 2 weeks ago. PLAN: What sounds like a true aspirin allergy, we will load him with Plavix and he will continue wit h that. His current symptoms sound like an inflammatory pain. With his history of aspirin allergy, I will avoid usual NSAIDs and we will place him on colchicine.
[2018-06-09] MEDS: HYDROcodone/Acetaminophen 5/325 mg Tablet PO PRN ×2 (14:50→20:45)
[2018-06-10] MEDS ORDERED: Ketorolac Tromethamine 30 MG/ML VIAL IVP SCH (00:15)
[2018-06-10] MEDS: Nitroglycerin 0.4 MG TAB (25 Tab Bottle) SL SCH ×2 (00:15→01:09)
[2018-06-10] MEDS: HYDROcodone/Acetaminophen 5/325 mg Tablet PO PRN ×2 (02:48→08:26)
[2018-06-10 05:59] LABS: #Eosinphils 0.1 thou/uL (0.0-0.7); #Lymphocytes 3.2 thou/uL (1.20-3.40); #Monocytes 0.8 thou/uL (0.11-0.59); %Basophils 0.3 % (0.0-1.0); %Eosinophils 0.6 % (0.0-10.0); %Lymphocytes 24.1 % (21.0-51.0); %Monocytes 6.4 % (0.0-10.0); %Neutrophils 68.6 % (42.0-75.0); Hemoglobin 11.9 g/dL (14.0-18.0); Mean Corpuscular HGB CONC 32.6 g/dL (32.0-36.0); Mean Corpuscular Hemoglobin 30.2 pg (27.0-31.0); Mean Corpuscular Volume 92.4 fL (78.0-98.0); Mean Platelet Volume 7.5 fL (7.4-10.4); Platelet Count 363 thou/uL (130-400); RBC Distribution Width 14.8 % (11.5-14.5); Red Blood Cell (RBC) Count 3.94 mill/uL (4.70-6.10); White Blood Cell (WBC) Count 13.1 thou/uL (4.8-10.8)
[2018-06-10 06:10] LABS: Anion Gap 12 mmol/L (10-20); BUN (Urea Nitrogen) 14 mg/dL (8.9-20.6); Calc. Creatinine Clearance 174 mL/min (70-130); Calcium 8.7 mg/dL (7.8-10.44); Carbon Dioxide 24 mmol/L (22-29); Chloride 110 mmol/L (98-107); Estimated GFR-MDRD Greater than 90; Glucose 96 mg/dL (70-105); Potassium 4.1 mmol/L (3.5-5.1); Sodium 142 mmol/L (136-145)
[2018-06-10] MEDS: Clopidogrel Bisulfate 75 MG TAB PO SCH (07:55)
[2018-06-10] MEDS: Docusate 100 MG CAP PO SCH (07:55)
[2018-06-10] MEDS: Metoprolol Tartrate 25 MG TAB PO SCH (07:55)
[2018-06-10] MEDS: Colchicine 0.6 MG TAB PO SCH (07:55)
[2018-06-10] MEDS: Atorvastatin Calcium 10 MG TAB PO SCH (07:55)
[2018-06-10] MEDS: Enoxaparin Sodium 30 MG/0.3 ML SYRINGE SC SCH (07:56)
[2018-06-10] MEDS: Amiodarone 200 MG TAB PO SCH (07:56)
[2018-06-10] MEDS ORDERED: predniSONE 20 MG TAB PO SCH (08:00)
[2018-06-10] MEDS: Famotidine 20 MG TAB PO SCH (08:03)
[2018-06-10 11:53] LABS: ANA Symphony (Qualitative) Negative (Negative); dsDNA IgG Antibody 0.8 IU/mL (<10 Negative)
--- NOTE | 2018-06-10 12:08 | PDOC.PN ---
- Subjective Encounter Start Date: 06/10/18 Encounter Start Time: 10:00 Subjective: no new complaints -: is amb in room and eating well - Objective Resuscitation Status: Resuscitation Status FULL:Full Resuscitation MAR Reviewed: Yes Vital Signs & Weight: Vital Signs (12 hours) Temp Pulse Resp BP Pulse Ox 06/10/18 07:32 97.8 F 61 17 98 06/10/18 07:31 97.8 F 61 17 105/62 8 L 06/10/18 06:47 55 L 16 96 06/10/18 04:00 97.7 F 62 18 95/61 95 06/10/18 00:12 71 111/68 Weight Weight 230 lb 3.2 oz I&O: 06/09/18 06/10/18 06/11/18 06:59 06:59 06:59 Intake Total 1030 460 Balance 1030 460 Result Diagrams: 06/10/18 05:40 06/10/18 05:40 Phys Exam - Physical Examination HEENT: PERRLA, moist MMs Neck: no JVD, supple Respiratory: no wheezing, no rales rhonchi+ Cardiovascular: RRR, no significant murmur Gastrointestinal: soft, non-tender, positive bowel sounds Musculoskeletal: no edema, pulses present Neurological: non-focal, moves all 4 limbs Psychiatric: normal affect, A&O x 3 Dx/Plan (1) Chest pain Code(s): R07.9 - CHEST PAIN, UNSPECIFIED Status: Acute Qualifiers: Chest pain type: unspecified Qualified Code(s): R07.9 - Chest pain, unspecified (2) 3-vessel coronary artery disease Status: Chronic Comment: cabg x3 done in march 2018 (3) Dyslipidemia Code(s): E78.5 - HYPERLIPIDEMIA, UNSPECIFIED Status: Chronic (4) Anxiety and depression Code(s): F41.9 - ANXIETY DISORDER, UNSPECIFIED; F32.9 - MAJOR DEPRESSIVE DISORDER, SINGLE EPISODE, UNSPECIFIED Status: Chronic (5) Obesity (BMI 30-39.9) Code(s): E66.9 - OBESITY, UNSPECIFIED Status: Chronic (6) Tobacco abuse Code(s): Z72.0 - TOBACCO USE Status: Chronic (7) COPD (chronic obstructive pulmonary disease) Status: Acute Qualifiers: COPD type: chronic bronchitis - Plan TORIN with reflex results to be followed up by PCP -: hemostable -: crp levels have come down to 5 from 10 -: to continue colchicine and prednisone taper, nebs, levaquin -: wbc down to 13k, dc pt home, counselled reg med compliance * .
[2018-06-10 13:43] VITALS: BP 110/68; TEMP 97.2
--- NOTE | 2018-06-11 19:45 | DIS ---
DATE OF ADMISSION: 06/08/2018 DATE OF DISCHARGE: 06/10/2018 DISCHARGE DISPOSITION: To home. PRIMARY DISCHARGE DIAGNOSIS: Right-sided chest pain, which is noncardiac. SECONDARY DISCHARGE DIAGNOSES: Three-vessel coronary artery disease with prior coronary artery bypas s graft, dyslipidemia, anxiety, depression, tobacco abuse, obesity, chronic obstructive pulmonary dis ease. PROCEDURES DONE DURING HOSPITALIZATION: The patient had CT angio chest done on the day of admission, which showed no evidence of PE. There was a small right pleural effusion seen, there were also biba silar linear and patchy parenchymal opacities at the lung bases likely due to atelectasis. Small per icardial effusion and/or pericardial thickening were seen, no evidence of pulmonary embolus. There i s mild cardiomegaly and fatty infiltration of liver. Echo with 2D Doppler done showed EF of 50% to 5 5%. There was no evidence of any pericardial effusion. Blood cultures x2 no growth. Respiratory cu ltures grew normal respiratory jus. Had a white count of 15, which went up to 20 and at the time o f discharge is 13. D-dimer was 2.20. Initial CRP was 10.85 with placement of colchicine and prednis one it has come down to 5.76. TORIN screen was negative. INPATIENT CONSULTS: Dr. Connelly for Cardiology. DISCHARGE PLAN: The patient to follow up with primary care physician in 1 week. DISCHARGE MEDICATIONS: Klonopin 0.25 mg p.o. daily p.r.n., Seroquel 350 mg p.o. at bedtime, albutero l inhaler q.6 hourly p.r.n., amiodarone 200 mg p.o. daily, atorvastatin 10 mg p.o. daily, Plavix 75 m g p.o. daily, colchicine 0.6 mg p.o. twice daily, Levaquin 500 mg p.o. daily for another 6 days, pred nisone tapering dose starting at 10 mg twice daily over a course of 12 days and to discontinue, Lopre ssor 12.5 mg half a tablet twice daily, Pepcid 20 mg twice daily. ALLERGIES: Allergic to PENICILLIN, IODINE, ASPIRIN, SHELLFISH and SULFA. BRIEF COURSE DURING HOSPITALIZATION: The patient initially got admitted on 06/08/2018 with complaint s of right-sided chest pain and shortness of breath. He has had recent CABG done in the month of Apr in 2018. In view of this history, he was admitted to telemetry. He has had CT angio chest done, w hich did not reveal any thrombus. The patient had elevated CRP and was placed on colchicine and pred nisone. He has responded well with a CRP level is coming down to 5 from 10. He has had an TORIN test done, which was negative. He was placed on Levaquin as well. The patient has been counseled with cristina alonso to tobacco cessation. He was also counseled with regard to medication compliance. He needs to closely follow up with primary care physician in 1 week. Prior to discharge, he is eating and ambul ating well. His right-sided chest pain is slowly receding. Please see a [id number] documentation on [facility] for the day of discharge.
--- NOTE | 2018-06-12 10:59 | EKG ---
Test Reason : CHEST PAIN Blood Pressure : / mmHG Vent. Rate : 084 BPM Atrial Rate : 084 BPM P-R Int : 160 ms QRS Dur : 086 ms QT Int : 438 ms P-R-T Axes : 040 067 081 degrees QTc Int : 517 ms Normal sinus rhythm Cannot rule out Anterior infarct , age undetermined Poor anterior R wave progression Prolonged QT Nonspecific T wave abnormality Abnormal ECG Confirmed by PRINCESS MANRIQUEZ, JUSTINA ([id number]), multimedia editor FROY CHEUNG ([id number]) on 06/12/2018 10:58:37 AM Referred By: Confirmed By:JUSTINA SÁNCHEZ MD
== END 2018-06-10 14:09 | disposition home or self-care (01) | DRG 313 ==
LOC: SCSER 20:28 → 2SW 06-08 00:13 → OBSVTOIN 06-08 00:13 → 2NO 06-09 18:17
PROVIDERS: ADMIT Internal Medicine; ATTEND Internal Medicine
DX: R07.89 Other chest pain (principal); I25.10 Atherosclerotic heart disease of native coronary artery without angina pectoris; E78.5 Hyperlipidemia, unspecified; F41.9 Anxiety disorder, unspecified; F32.9 Major depressive disorder, single episode, unspecified; E66.9 Obesity, unspecified; Z68.36 Body mass index [BMI] 36.0-36.9, adult; I48.91 Unspecified atrial fibrillation; I10 Essential (primary) hypertension; F17.210 Nicotine dependence, cigarettes, uncomplicated; J44.9 Chronic obstructive pulmonary disease, unspecified; Z95.1 Presence of aortocoronary bypass graft
CPT/HCPCS: 36415; 71045; 71275; 80048; 80053; 82550; 82553; 83605; 83690; 83880; 84484; 85025; 85379; 85652; 86038; 86140; 86225; 87040; 87070; 87205; 93005; 93306; 93970; 94640; 94760; 96361; 96365; 96374; 96375; 96376; 99406; A4216; G8978-GP-CI; G8979-GP-CI; G8980-GP-CI; J1200; J1650; J1885; J1956; J2270; J2550; J2930; J7506; J7620; S0028

== ENCOUNTER 2018-06-14 22:45 | Emergency (ER) | payer SELFPAY ==
[2018-06-14 23:30] LABS: #Basophils 0.1 thou/uL (0.0-0.2); #Eosinphils 0.4 thou/uL (0.0-0.7); #Lymphocytes 4.2 thou/uL (1.20-3.40); #Monocytes 1.1 thou/uL (0.11-0.59); #Neutrophils 8.5 thou/uL (1.40-6.50); %Basophils 0.6 % (0.0-1.0); %Eosinophils 2.8 % (0.0-10.0); %Lymphocytes 29.2 % (21.0-51.0); %Monocytes 7.5 % (0.0-10.0); %Neutrophils 59.9 % (42.0-75.0); Hemoglobin 13.2 g/dL (14.0-18.0); Mean Corpuscular HGB CONC 33.3 g/dL (32.0-36.0); Mean Corpuscular Hemoglobin 30.6 pg (27.0-31.0); Mean Platelet Volume 7.3 fL (7.4-10.4); Platelet Count 356 thou/uL (130-400); RBC Distribution Width 14.8 % (11.5-14.5); Red Blood Cell (RBC) Count 4.32 mill/uL (4.70-6.10); White Blood Cell (WBC) Count 14.2 thou/uL (4.8-10.8)
--- NOTE | 2018-06-14 23:35 | RAD ---
RADIOGRAPH CHEST 2 VIEWS: 06/14/18 HISTORY: 37-year-old male with acute chest pain. FINDINGS: There is no air space density, pulmonary edema, pleural effusion, pneumothorax, or cardiomegaly. Ther e are sternotomy wires. IMPRESSION: 1. No acute cardiopulmonary findings. 2. Evidence of previous open heart surgery. arthur [] POS: [facility]
[2018-06-14 23:52] LABS: ALT (SGPT) 28 U/L (8-55); AST (SGOT) 17 U/L (5-34); Alkaline Phosphatase 78 U/L (40-150); Anion Gap 13 mmol/L (10-20); BUN (Urea Nitrogen) 18 mg/dL (8.9-20.6); Bilirubin, Total 0.2 mg/dL (0.2-1.2); CK (CPK) 42 U/L (30-200); Calc. Creatinine Clearance 0 mL/min (70-130); Calcium 9.4 mg/dL (7.8-10.44); Carbon Dioxide 22 mmol/L (22-29); Chloride 107 mmol/L (98-107); Estimated GFR-MDRD 73; Globulin 3.2 g/dL (2.4-3.5); Glucose 96 mg/dL (70-105); Potassium 4.1 mmol/L (3.5-5.1); Protein, Total 7.2 g/dL (6.0-8.3); Sodium 138 mmol/L (136-145)
[2018-06-14 23:55] LABS: CKMB 0.7 ng/mL (0-6.6); Troponin I Less than 0.010 ng/mL (< 0.028)
== END 2018-06-14 23:39 | disposition home or self-care (01) ==
LOC: ERS 22:45
DX: Z53.21 Procedure and treatment not carried out due to patient leaving prior to being seen by health care provider (principal)
CPT/HCPCS: 36415; 71046; 80053; 82553; 84484; 85025; 93005

== ENCOUNTER 2018-06-22 16:23 | Emergency (ER) | payer SELFPAY ==
[2018-06-22 16:54] LABS: #Basophils 0.1 thou/uL (0.0-0.2); #Eosinphils 0.4 thou/uL (0.0-0.7); #Lymphocytes 2.8 thou/uL (1.20-3.40); #Monocytes 0.8 thou/uL (0.11-0.59); #Neutrophils 9.1 thou/uL (1.40-6.50); %Basophils 1.1 % (0.0-1.0); %Eosinophils 3.1 % (0.0-10.0); %Monocytes 6.1 % (0.0-10.0); %Neutrophils 68.7 % (42.0-75.0); Mean Corpuscular Hemoglobin 29.7 pg (27.0-31.0); Mean Corpuscular Volume 87.5 fL (78.0-98.0); Mean Platelet Volume 8.6 fL (7.4-10.4); Platelet Count 288 thou/uL (130-400); RBC Distribution Width 13.8 % (11.5-14.5); Red Blood Cell (RBC) Count 4.36 mill/uL (4.70-6.10); White Blood Cell (WBC) Count 13.3 thou/uL (4.8-10.8)
[2018-06-22] MEDS ORDERED: Clopidogrel Bisulfate 75 MG TAB ONE (16:58)
[2018-06-22] MEDS ORDERED: Ondansetron HCl/PF 4 MG/2 ML Vial ONE (17:06)
[2018-06-22 17:12] LABS: ALT (SGPT) 17 U/L (8-55); AST (SGOT) 16 U/L (5-34); Albumin 3.7 g/dL (3.5-5.0); Alkaline Phosphatase 72 U/L (40-150); Anion Gap 11 mmol/L (10-20); BUN (Urea Nitrogen) 7 mg/dL (8.9-20.6); Bilirubin, Total 0.3 mg/dL (0.2-1.2); CK (CPK) 64 U/L (30-200); CKMB 0.5 ng/mL (0-6.6); Calc. Creatinine Clearance 0 mL/min (70-130); Calcium 9.4 mg/dL (7.8-10.44); Carbon Dioxide 25 mmol/L (22-29); Chloride 108 mmol/L (98-107); Estimated GFR-MDRD Greater than 90; Globulin 3.2 g/dL (2.4-3.5); Glucose 119 mg/dL (70-105); Lipase 24 U/L (8-78); Potassium 3.8 mmol/L (3.5-5.1); Protein, Total 6.9 g/dL (6.0-8.3); Sodium 140 mmol/L (136-145); Troponin I 0.012 ng/mL (< 0.028)
--- NOTE | 2018-06-22 17:13 | RAD ---
CHEST ONE VIEW: 06/22/18 HISTORY: Chest pain. COMPARISON: 06/14/18. FINDINGS: The cardiac silhouette is magnified and enlarged. Pulmonary vasculature is slightly engorged with wid espread reticulonodular interstitial prominence. Mediastinum is midline with postoperative changes. N o lobar consolidation or evidence of pneumothorax. IMPRESSION: Cardiomegaly with mild pulmonary vascular congestion. POS: [facility]
[2018-06-22] MEDS ORDERED: Ketorolac Tromethamine 30 MG/ML VIAL ONE ×2 (17:16→17:44)
== END 2018-06-22 18:10 | disposition home or self-care (01) ==
LOC: SCSER 16:23
DX: R07.9 Chest pain, unspecified (principal); I25.2 Old myocardial infarction; I10 Essential (primary) hypertension; G40.909 Epilepsy, unspecified, not intractable, without status epilepticus; E11.9 Type 2 diabetes mellitus without complications; F41.9 Anxiety disorder, unspecified; F17.210 Nicotine dependence, cigarettes, uncomplicated; Z79.899 Other long term (current) drug therapy
CPT/HCPCS: 71045; 80053; 82550; 82553; 83690; 84484; 85025; 93005; 96374; 96375; 96376; J1885; J2405

== ENCOUNTER 2018-06-23 23:33 | Emergency (ER) | payer SELFPAY ==
[2018-06-24 00:39] LABS: #Basophils 0.1 thou/uL (0.0-0.2); #Eosinphils 0.3 thou/uL (0.0-0.7); #Monocytes 0.8 thou/uL (0.11-0.59); #Neutrophils 10.5 thou/uL (1.40-6.50); %Basophils 0.7 % (0.0-1.0); %Eosinophils 1.7 % (0.0-10.0); %Lymphocytes 20.5 % (21.0-51.0); %Monocytes 5.2 % (0.0-10.0); %Neutrophils 71.9 % (42.0-75.0); Hemoglobin 12.3 g/dL (14.0-18.0); Mean Corpuscular HGB CONC 34.3 g/dL (32.0-36.0); Mean Corpuscular Hemoglobin 30.1 pg (27.0-31.0); Mean Corpuscular Volume 87.7 fL (78.0-98.0); Mean Platelet Volume 8.8 fL (7.4-10.4); Platelet Count 305 thou/uL (130-400); RBC Distribution Width 14.2 % (11.5-14.5); White Blood Cell (WBC) Count 14.6 thou/uL (4.8-10.8)
[2018-06-24 00:46] LABS: ALT (SGPT) 17 U/L (8-55); AST (SGOT) 15 U/L (5-34); Albumin 3.8 g/dL (3.5-5.0); Alkaline Phosphatase 78 U/L (40-150); Anion Gap 15 mmol/L (10-20); BUN (Urea Nitrogen) 7 mg/dL (8.9-20.6); Bilirubin, Total 0.3 mg/dL (0.2-1.2); CK (CPK) 55 U/L (30-200); Calc. Creatinine Clearance 0 mL/min (70-130); Calcium 9.5 mg/dL (7.8-10.44); Carbon Dioxide 26 mmol/L (22-29); Chloride 106 mmol/L (98-107); Estimated GFR-MDRD 83; Glucose 121 mg/dL (70-105); Potassium 3.5 mmol/L (3.5-5.1); Protein, Total 6.8 g/dL (6.0-8.3); Sodium 143 mmol/L (136-145)
[2018-06-24 01:01] LABS: Acetaminophen Less than 6.0 mcg/mL (10.0-30.0); Alcohol Less than 10 mg/dL (Less than 10); Salicylate Less than 8.0 mg/dL (15.0-30.0)
[2018-06-24 01:06] LABS: Amphetamine Not Detected (NotDetected); Barbiturates Screen Not Detected (NotDetected); Benzodiazepine Screen Not Detected (NotDetected); Cocaine Metabolite Screen Not Detected (NotDetected); Medtox Control Line Valid? VALID (VALID); Methadone Not Detected (NotDetected); Methamphetamine Not Detected (NotDetected); Opiate Screen Not Detected (NotDetected); Oxycodone Screen Not Detected (NotDetected); Phencyclidine (PCP) Not Detected (NotDetected); THC/Cannabinoid Screen Not Detected (NotDetected); Tricyclic Screen Not Detected (NotDetected)
[2018-06-24 01:07] LABS: CKMB 0.4 ng/mL (0-6.6); Troponin I Less than 0.010 ng/mL (< 0.028)
== END 2018-06-24 03:34 | disposition home or self-care (01) ==
LOC: SCSER 23:33
DX: R45.851 Suicidal ideations (principal); R07.9 Chest pain, unspecified; I25.2 Old myocardial infarction; I10 Essential (primary) hypertension; G40.909 Epilepsy, unspecified, not intractable, without status epilepticus; E11.9 Type 2 diabetes mellitus without complications; F41.9 Anxiety disorder, unspecified; F32.9 Major depressive disorder, single episode, unspecified; F17.210 Nicotine dependence, cigarettes, uncomplicated; Z79.899 Other long term (current) drug therapy
CPT/HCPCS: 80053; 80306; 80307; 82550; 82553; 84484; 85025; 93005

== ENCOUNTER 2018-07-03 23:30 | Emergency (ER) | payer SELFPAY ==
[2018-07-03] MEDS ORDERED: Nitroglycerin 2% Ointment 1 INCH/1 GM Packet ONE (23:56)
[2018-07-04 00:16] LABS: #Basophils 0.2 thou/uL (0.0-0.2); #Eosinphils 0.6 thou/uL (0.0-0.7); #Lymphocytes 3.8 thou/uL (1.20-3.40); #Monocytes 0.8 thou/uL (0.11-0.59); #Neutrophils 6.1 thou/uL (1.40-6.50); %Basophils 1.4 % (0.0-1.0); %Eosinophils 5.2 % (0.0-10.0); %Lymphocytes 33.2 % (21.0-51.0); %Monocytes 7.2 % (0.0-10.0); %Neutrophils 53.1 % (42.0-75.0); Hemoglobin 13.7 g/dL (14.0-18.0); Mean Corpuscular HGB CONC 33.9 g/dL (32.0-36.0); Mean Corpuscular Hemoglobin 29.7 pg (27.0-31.0); Mean Corpuscular Volume 87.6 fL (78.0-98.0); Mean Platelet Volume 8.2 fL (7.4-10.4); Platelet Count 325 thou/uL (130-400); RBC Distribution Width 14.4 % (11.5-14.5); Red Blood Cell (RBC) Count 4.61 mill/uL (4.70-6.10); White Blood Cell (WBC) Count 11.4 thou/uL (4.8-10.8)
[2018-07-04] MEDS ORDERED: Ketorolac Tromethamine 30 MG/ML VIAL ONE (00:16)
[2018-07-04 00:43] LABS: CKMB 0.6 ng/mL (0-6.6); Troponin I 0.016 ng/mL (< 0.028)
[2018-07-04] MEDS ORDERED: Acetaminophen 500 MG TAB ONE (00:45)
[2018-07-04 00:54] LABS: ALT (SGPT) 18 U/L (8-55); AST (SGOT) 17 U/L (5-34); Albumin 4.3 g/dL (3.5-5.0); Alkaline Phosphatase 83 U/L (40-150); Anion Gap 14 mmol/L (10-20); BUN (Urea Nitrogen) 10 mg/dL (8.9-20.6); Bilirubin, Total 0.2 mg/dL (0.2-1.2); Calc. Creatinine Clearance 0 mL/min (70-130); Calcium 9.6 mg/dL (7.8-10.44); Carbon Dioxide 26 mmol/L (22-29); Chloride 107 mmol/L (98-107); Estimated GFR-MDRD 70; Globulin 3.4 g/dL (2.4-3.5); Glucose 84 mg/dL (70-105); Potassium 3.6 mmol/L (3.5-5.1); Protein, Total 7.7 g/dL (6.0-8.3); Sodium 143 mmol/L (136-145)
--- NOTE | 2018-07-04 07:44 | RAD ---
TWO VIEWS OF CHEST: DATE: 07/04/18. COMPARISON: 06/14/18. HISTORY: Substernal chest pain. FINDINGS: Patient is status post midline sternotomy. Heart and mediastinal contours are grossly unremarkable. There is no pneumothorax, pleural fluid, focal consolidation, or alveolar edema. IMPRESSION: No acute findings. POS: [facility]
== END 2018-07-04 01:40 | disposition left against medical advice (07) ==
LOC: SCSER 23:30
DX: R07.2 Precordial pain (principal); I25.2 Old myocardial infarction; I10 Essential (primary) hypertension; G40.909 Epilepsy, unspecified, not intractable, without status epilepticus; E11.9 Type 2 diabetes mellitus without complications; F41.9 Anxiety disorder, unspecified; F17.210 Nicotine dependence, cigarettes, uncomplicated; Z79.899 Other long term (current) drug therapy
CPT/HCPCS: 71046; 80053; 82553; 84484; 85025; 93005; 96374; J1885

== ENCOUNTER 2018-07-04 17:48 | Emergency (ER) | payer SELFPAY ==
[2018-07-04 19:08] LABS: Troponin I 0.011 ng/mL (< 0.028)
== END 2018-07-04 19:26 | disposition home or self-care (01) ==
LOC: SCSER 17:48
DX: R07.9 Chest pain, unspecified (principal); I25.2 Old myocardial infarction; I10 Essential (primary) hypertension; G40.909 Epilepsy, unspecified, not intractable, without status epilepticus; E11.9 Type 2 diabetes mellitus without complications; F17.210 Nicotine dependence, cigarettes, uncomplicated; F41.9 Anxiety disorder, unspecified; F32.9 Major depressive disorder, single episode, unspecified; E78.5 Hyperlipidemia, unspecified
CPT/HCPCS: 36415; 84484; 93005

== ENCOUNTER 2018-07-16 03:00 | Emergency (ER) | payer SELFPAY ==
[2018-07-16] MEDS ORDERED: Acetaminophen 500 MG TAB ONE (03:21)
[2018-07-16 03:37] LABS: #Basophils 0.2 thou/uL (0.0-0.2); #Eosinphils 0.6 thou/uL (0.0-0.7); #Lymphocytes 3.8 thou/uL (1.20-3.40); #Monocytes 0.8 thou/uL (0.11-0.59); #Neutrophils 11.5 thou/uL (1.40-6.50); %Basophils 1.1 % (0.0-1.0); %Eosinophils 3.8 % (0.0-10.0); %Lymphocytes 22.3 % (21.0-51.0); %Monocytes 4.5 % (0.0-10.0); %Neutrophils 68.4 % (42.0-75.0); Hemoglobin 13.7 g/dL (14.0-18.0); Mean Corpuscular HGB CONC 34.9 g/dL (32.0-36.0); Mean Corpuscular Hemoglobin 29.7 pg (27.0-31.0); Mean Corpuscular Volume 85.2 fL (78.0-98.0); Mean Platelet Volume 9.4 fL (7.4-10.4); Platelet Count 259 thou/uL (130-400); Red Blood Cell (RBC) Count 4.62 mill/uL (4.70-6.10); White Blood Cell (WBC) Count 16.9 thou/uL (4.8-10.8)
[2018-07-16 03:44] LABS: Bilirubin Negative (Negative); Blood, Urine Trace (Negative); Clarity Cloudy (Clear); Glucose, Urine (Dipstick) Negative (Negative); Leukocyte Moderate (Negative); Nitrite Negative (Negative); Protein, Urine (Dipstick) Negative (Neg-Trace); Urobilinogen 0.2 mg/dL (0.2-1.0); pH, Urine 5.5 (5.0-9.0)
[2018-07-16 03:48] LABS: Bacteria/HPF None Seen HPF (None Seen); Hyaline Casts/LPF NONE SEEN LPF (0-3 Hyaline); Other Microscopic Description Less than 2 mL rec'd; RBC/HPF 0-3 HPF (0-3); Squamous Epithelial 0-3 HPF (0-3)
[2018-07-16 03:49] LABS: ALT (SGPT) 18 U/L (8-55); AST (SGOT) 17 U/L (5-34); Albumin 4.1 g/dL (3.5-5.0); Alkaline Phosphatase 76 U/L (40-150); Anion Gap 13 mmol/L (10-20); BUN (Urea Nitrogen) 9 mg/dL (8.9-20.6); Bilirubin, Total 0.3 mg/dL (0.2-1.2); Calc. Creatinine Clearance 0 mL/min (70-130); Calcium 9.6 mg/dL (7.8-10.44); Carbon Dioxide 25 mmol/L (22-29); Chloride 106 mmol/L (98-107); Estimated GFR-MDRD 77; Globulin 3.1 g/dL (2.4-3.5); Glucose 97 mg/dL (70-105); Protein, Total 7.2 g/dL (6.0-8.3); Sodium 140 mmol/L (136-145)
[2018-07-16] MEDS ORDERED: Phenazopyridine HCl 97.5 MG TABLET ONE (03:56)
--- NOTE | 2018-07-16 07:48 | ULT ---
SCROTAL ULTRASOUND: INDICATION: Left-sided testicular pain in a 37-year-old male. TECHNIQUE: Shi scale, color Doppler, and vascular duplex with spectral analysis was performed of the scrotum. FINDINGS: The left testicle measures 3.1 x 3.8 x 1.7 cm and demonstrates normal vascular flow. No left-sided h ydrocele is present. There is a tiny epididymal head cyst seen within the left epididymal head. Inf erior and slightly medial to the left epididymal tail is a 1.9 x 2.8 x 0.7 cm heterogeneous solid-kylie earing mass. There is no increased vascular flow to this area. There are areas of tubule-like forma tion seen within this region. This abuts the lower tail of the left epididymis. The right testicle measures 2.1 x 3.9 x 1.7 cm. There is normal vascular flow to the right testicle. A small epididymal head cyst seen within the right epididymal head. No hydrocele is evident. IMPRESSION: 1. Heterogeneous solid mass seen medial and slightly lower to the left epididymal tail is nonspecifi c. This can be related to chronic epididymitis. This also can be seen with sperm granulomas and beverley id mass lesions of the epididymis including adenomatoid tumor and fibrous pseudotumor. Followup urol ogical consultation is recommended. 2. No evidence of intratesticular mass or torsion. POS: [facility]
== END 2018-07-16 05:50 | disposition home or self-care (01) ==
LOC: SCSER 03:00
DX: N45.1 Epididymitis (principal); I25.2 Old myocardial infarction; I10 Essential (primary) hypertension; E11.9 Type 2 diabetes mellitus without complications; F32.9 Major depressive disorder, single episode, unspecified; F41.9 Anxiety disorder, unspecified; F17.210 Nicotine dependence, cigarettes, uncomplicated
CPT/HCPCS: 36415; 76870; 80053; 81003; 81015; 85025; 93976

== ENCOUNTER 2018-07-21 11:25 | Emergency (ER) | payer SELFPAY ==
[2018-07-21] MEDS ORDERED: Metoclopramide HCl 10 MG TAB ONE (11:49)
[2018-07-21] MEDS ORDERED: Acetaminophen 500 MG TAB ONE (11:49)
[2018-07-21] MEDS ORDERED: Ketorolac Tromethamine 30 MG/ML VIAL ONE (12:16)
== END 2018-07-21 12:19 | disposition home or self-care (01) ==
LOC: SCSER 11:25
DX: R10.12 Left upper quadrant pain (principal); I25.2 Old myocardial infarction; I10 Essential (primary) hypertension; G40.909 Epilepsy, unspecified, not intractable, without status epilepticus; E11.9 Type 2 diabetes mellitus without complications; F41.9 Anxiety disorder, unspecified; F32.9 Major depressive disorder, single episode, unspecified; F17.210 Nicotine dependence, cigarettes, uncomplicated; Z79.899 Other long term (current) drug therapy; Z79.82 Long term (current) use of aspirin
CPT/HCPCS: 96372; J1885

== ENCOUNTER 2018-07-26 07:10 | Inpatient (IN) | payer SELFPAY ==
[2018-07-26] MEDS ORDERED: Lidocaine Viscous Sol 2% 15 ml UD Cup ONE (08:05)
[2018-07-26] MEDS ORDERED: Aspirin 325 MG TAB ONE (08:05)
[2018-07-26] MEDS ORDERED: Mag-Al Plus 1200 MG/1200 MG/120 MG/30 ML UDCUP ONE (08:05)
[2018-07-26] MEDS ORDERED: Nitroglycerin 2% Ointment 1 INCH/1 GM Packet ONE (09:20)
[2018-07-26] MEDS ORDERED: methylPREDNISolone Sod Succ/PF 125 MG/2 ML VIAL ONE (09:20)
[2018-07-26] MEDS ORDERED: Promethazine HCl 25 MG/ML VIAL ONE (09:20)
[2018-07-26] MEDS ORDERED: diphenhydrAMINE 50 MG/ML VIAL ONE (09:20)
[2018-07-26] MEDS ORDERED: Famotidine/PF 20 mg/2ml Vial ONE (09:20)
[2018-07-26 12:07] LABS: Bilirubin Negative (Negative); Blood, Urine Negative (Negative); Clarity Clear (Clear); Glucose, Urine (Dipstick) Negative (Negative); Leukocyte Small (Negative); Nitrite Negative (Negative); Protein, Urine (Dipstick) Negative (Neg-Trace); Specific Gravity, Urine 1.015 (1.005-1.030); Urobilinogen 0.2 mg/dL (0.2-1.0); pH, Urine 6.5 (5.0-9.0)
[2018-07-26 12:08] LABS: Bacteria/HPF None Seen HPF (None Seen); Crystals/HPF None Seen HPF (Negative); Hyaline Casts/LPF NONE SEEN LPF (0-3 Hyaline); RBC/HPF 0-3 HPF (0-3); Squamous Epithelial 0-3 HPF (0-3); WBC/HPF 0-3 HPF (0-3)
[2018-07-26 12:11] LABS: CKMB 0.4 ng/mL (0-6.6); Troponin I Less than 0.010 ng/mL (< 0.028)
[2018-07-26 12:13] LABS: ALT (SGPT) 18 U/L (8-55); AST (SGOT) 14 U/L (5-34); Alkaline Phosphatase 91 U/L (40-150); Anion Gap 13 mmol/L (10-20); BUN (Urea Nitrogen) 9 mg/dL (8.9-20.6); Bilirubin, Total 0.4 mg/dL (0.2-1.2); CK (CPK) 57 U/L (30-200); Calc. Creatinine Clearance 0 mL/min (70-130); Calcium 9.4 mg/dL (7.8-10.44); Carbon Dioxide 23 mmol/L (22-29); Chloride 107 mmol/L (98-107); Estimated GFR-MDRD Greater than 90; Glucose 137 mg/dL (70-105); Lipase 28 U/L (8-78); Potassium 3.9 mmol/L (3.5-5.1); Sodium 139 mmol/L (136-145)
[2018-07-26 12:14] LABS: #Basophils 0.1 thou/uL (0.0-0.2); #Eosinphils 0.6 thou/uL (0.0-0.7); #Lymphocytes 3.1 thou/uL (1.20-3.40); #Monocytes 0.6 thou/uL (0.11-0.59); #Neutrophils 10.1 thou/uL (1.40-6.50); %Basophils 0.9 % (0.0-1.0); %Eosinophils 4.2 % (0.0-10.0); %Monocytes 4.1 % (0.0-10.0); %Neutrophils 69.8 % (42.0-75.0); Hemoglobin 13.9 g/dL (14.0-18.0); Mean Corpuscular HGB CONC 33.4 g/dL (32.0-36.0); Mean Corpuscular Hemoglobin 28.7 pg (27.0-31.0); Mean Corpuscular Volume 85.9 fL (78.0-98.0); Mean Platelet Volume 8.6 fL (7.4-10.4); Platelet Count 237 thou/uL (130-400); RBC Distribution Width 14.9 % (11.5-14.5); Red Blood Cell (RBC) Count 4.86 mill/uL (4.70-6.10); White Blood Cell (WBC) Count 14.5 thou/uL (4.8-10.8)
[2018-07-26] MEDS ORDERED: Morphine 4 MG/ML VIAL ONE (13:03)
[2018-07-26 13:13] VITALS: BMI 34.5
[2018-07-26] MEDS ORDERED: Ondansetron ODT 4 MG TAB SL PRN (13:14)
[2018-07-26] MEDS ORDERED: Sodium Chloride 0.9% 1,000 ML IV SCH (13:14)
[2018-07-26] MEDS ORDERED: Ondansetron PF 4 MG/2 ML Vial IVP PRN (13:14)
[2018-07-26 15:33] LABS: Troponin I Less than 0.010 ng/mL (< 0.028)
[2018-07-26] MEDS ORDERED: HumaLOG 300 UNITS/3 ML VIAL SC PRN (16:27)
[2018-07-26] MEDS ORDERED: Ondansetron ODT 4 MG TAB PO PRN (16:27)
[2018-07-26] MEDS ORDERED: Dextrose 50% Abboject 50 ML SYRINGE SLOW IVP PRN (16:27)
[2018-07-26] MEDS ORDERED: Dextrose 5% in Water 1,000 ML IV PRN (16:27)
[2018-07-26] MEDS ORDERED: hydrALAZINE 20 MG/ML VIAL SLOW IVP PRN (16:27)
[2018-07-26] MEDS ORDERED: cloNIDine 0.1 MG TAB PO PRN (16:27)
[2018-07-26] MEDS: HYDROcodone/Acetaminophen 5/325 mg Tablet PO PRN ×2 (16:43→21:13)
--- NOTE | 2018-07-26 17:43 | ULT ---
TESTICULAR ULTRASOUND: 07/26/18 HISTORY: Left sided testicular pain. COMPARISON: 07/16/18 exam. Real time imaging of the right and left testes were performed. The testicles are normal in size. Righ t testicle measures 3.5. The left testicle 4.5 cm in size. The right epididymal head region appears unremarkable. Along the inferior margin of the testicle, whi ch would be felt to be in the region of the tail of the epididymis, there is heterogeneous density. S ome small echogenic areas which could represent calcifications. There is a similar but more prominent appearance to the left epididymal tail region. Small cyst measuring 3 mm in size is seen in the head of the epididymis on the left. DOPPLER EVALUATION WITH SPECTRAL ANALYSIS: Normal flow is shown to both testes. IMPRESSION: Heterogeneous areas along the inferior margin of both the right and left testes more prominent on the left. I would suspect that this is related to the tail of the epididymis and may represent some type of chronic process, possibly old epididymitis change. It does not appear to be related to the testic le. The left changes are similar to the prior examination. Right sided changes were not definitely vi sualized on the prior exam but are less prominent and may just not have been seen on the prior study. POS: [facility]
[2018-07-26] MEDS ORDERED: Nitroglycerin 2% Ointment 1 INCH/1 GM Packet TOP SCH (18:00)
[2018-07-26] MEDS: Acetaminophen 500 MG TAB PO PRN (21:13)
[2018-07-26] MEDS: Doxycycline 100 MG CAP PO SCH (21:14)
[2018-07-26] MEDS: Famotidine 20 MG TAB PO SCH (21:14)
--- NOTE | 2018-07-26 22:19 | HP ---
DATE OF ADMISSION: 07/26/2018 PRIMARY CARE PROVIDER: Dr. Arely Wall. CHIEF COMPLAINT: Abdominal pain and fever. HISTORY OF PRESENT ILLNESS: This is a 37-year-old male who initially presented to [facility] Emergency Department complaining of abdominal, back and pelvic pain with associated fever up to 102.7 degrees Fahrenheit measured at home. The patient states he woke up feeling ill with samreen k and lower pelvic pain, experiencing approximately 7 bouts of diarrhea. The patient took his temper ature at home and noted the level at 102.7 degrees Fahrenheit. The patient states he was recently di agnosed with epididymitis, treated with Levaquin for approximately 14 days, completing antibiotics in the last 48-72 hours. The patient states he initially felt some relief of left testicular pain with out fever while on antibiotic therapy. The patient underwent testicular ultrasound on 07/16/2018 niels wing a solid mass of the left epididymal tail region prompting the initiation of antibiotic therapy. The patient admits to white discharge from his penis over the last 24-48 hours. In the emergency ro om, patient underwent general evaluation with CBC showing elevated white blood cell count of 14,000. The patient received a GI cocktail, aspirin as well as transdermal nitroglycerin, morphine sulfate, Phenergan, and intravenous normal saline. Patient admits to some improvement in overall pain to the left testicular region. PAST MEDICAL HISTORY: 1. Coronary artery disease. 2. Diabetes mellitus type 2. 3. Tobacco abuse. 4. Dyslipidemia. 5. Anxiety/depression. 6. Obesity. 7. Left epididymitis. 8. History of epilepsy. 9. Bipolar disorder. 10. History of atrial fibrillation. PAST SURGICAL HISTORY: 1. Status post left thumb surgery. 2. Status post coronary artery bypass grafting x3 vessels on 03/2018. CURRENT MEDICATIONS: 1. Amlodipine 5 mg p.o. daily. 2. Aspirin 325 mg p.o. daily. 3. Lipitor 20 mg p.o. daily. 4. Seroquel 350 mg p.o. at bedtime. ALLERGIES: PENICILLIN, IODINE and SULFA. FAMILY HISTORY: Positive for coronary artery disease. SOCIAL HISTORY: Patient resides in [place], [place]. Smokes up to a pack of cigarettes daily. No alcohol or illicit drug use. . REVIEW OF SYSTEMS: The following complete review of systems was negative, unless otherwise mentioned in the HPI or below: Constitutional: Weight loss or gain, ability to conduct usual activities. Skin: Rash, itching. Eyes: Double vision, pain. ENT/Mouth: Nose bleeding, neck stiffness, pain, tenderness. Cardiovascular: Palpitations, dyspnea on exertion, orthopnea. Respiratory: Shortness of breath, wheezing, cough, hemoptysis, fever or night sweats. Gastrointestinal: Poor appetite, abdominal pain, heartburn, nausea, vomiting, constipation, or diarr hea. Genitourinary: Urgency, frequency, dysuria, nocturia. Musculoskeletal: Pain, swelling. Neurologic/Psychiatric: Anxiety, depression. Allergy/Immunologic: Skin rash, bleeding tendency. Otherwise negative except as stated per HPI. PHYSICAL EXAMINATION: VITAL SIGNS: Currently blood pressure 118/76, pulse 65, respiratory rate 24, temperature 98 degrees Fahrenheit, O2 saturation 94% on room air. GENERAL APPEARANCE: This is a 37-year-old male, pale appearing, responsive to questions, i n mild distress. HEENT: Pupils are equal, round, and reactive to light and accommodation. Extraocular muscles are in tact. No scleral icterus, no conjunctival injection. Nares patent. OP is clear. Teeth in fair rep air. NECK: Supple, no cervical adenopathy, no thyromegaly, no carotid bruits, no JVD appreciated. Cervic al spine with full active and passive range of motion. No meningeal signs noted. CHEST: Lungs are clear to auscultation bilaterally. CARDIOVASCULAR: S1, S2, without noted murmur, rub or gallop. ABDOMEN: Obese with mild tenderness to palpation in the left lower quadrant. No palpable mass. No rebound or guarding. No CVA tenderness appreciated. GENITOURINARY: Testicles are descended bilaterally with cremasteric reflex bilaterally. Tenderness to palpation of the left testicular region without edema or discoloration. No expressible discharge from the penis. Circumcised. EXTREMITIES: Warm and dry with fair turgor. No clubbing, cyanosis or asymmetric edema appreciated. Pulses palpable distally at the dorsalis pedis, posterior tibial and popliteal arteries bilaterally. Capillary refill less than 2 seconds. NEUROLOGIC: Cranial nerves II-XII are grossly intact. No focal or lateralizing signs appreciated. Flat affect noted. PERTINENT LABORATORY DATA: Basic metabolic profile within normal limits. LFTs within normal limits. Troponin I negative x2. Lipase 28. CBC showed a white blood cell count of 14.5, hemoglobin 14, he matocrit 42, platelet count 237 with normal differential. Urinalysis showed small leukocyte esterase . Testicular ultrasound dated 07/16/2018 showed heterogeneous solid mass in the left epididymal tail . No evidence of intratesticular mass or torsion. EKG dated 07/26/2018 by my interpretation shows a sinus mechanism, heart rates in the 60s. Attenuated R waves noted in the precordial leads. Normal axis. No acute ST-T wave changes appreciated. ASSESSMENT AND PLAN: 1. Abdominal pain. Nonspecific currently. Suspect component from the left testicular origin. We w ill continue pain control with morphine sulfate 4 mg IV every 4 hours p.r.n. pain. Serial abdominal exams. CT of the abdomen and pelvis pending. 2. Left testicular pain. We will obtain repeat evaluation with testicular ultrasound, specifically evaluating the left testicular epididymis. Questionable chronic epididymitis. Start doxycycline 100 mg p.o. b.i.d. We will consult Urology Service for further evaluation. 3. Diabetes mellitus type 2. Insulin sliding scale for reflexive coverage. ADA diet. Confirm home diabetic regimen. 4. Tobacco abuse. We will offer smoking cessation resources prior to discharge. 5. Coronary artery disease. Chronic and stable. Continue aspirin 325 mg daily. Continue Lipitor 2 0 mg p.o. daily. 6. Prophylaxis. Sequential compression devices while in bed. Pepcid 20 mg p.o. b.i.d. 7. Code status is FULL. Surrogate medical decision maker is patient's spouse.
[2018-07-27] MEDS: HYDROcodone/Acetaminophen 5/325 mg Tablet PO PRN ×3 (01:12→09:53)
[2018-07-27] MEDS: Acetaminophen 500 MG TAB PO PRN (03:44)
[2018-07-27 04:44] LABS: Anion Gap 13 mmol/L (10-20); BUN (Urea Nitrogen) 10 mg/dL (8.9-20.6); Calc. Creatinine Clearance 149 mL/min (70-130); Calcium 9.5 mg/dL (7.8-10.44); Carbon Dioxide 20 mmol/L (22-29); Chloride 108 mmol/L (98-107); Estimated GFR-MDRD 88; Glucose 166 mg/dL (70-105); Potassium 4.4 mmol/L (3.5-5.1); Sodium 137 mmol/L (136-145)
[2018-07-27 04:56] LABS: Band 5 % (5-11); Hemoglobin 13.5 g/dL (14.0-18.0); Lymphocytes 9 % (21-51); MDiff Complete? YES; Mean Corpuscular HGB CONC 32.6 g/dL (32.0-36.0); Mean Corpuscular Hemoglobin 29.3 pg (27.0-31.0); Mean Corpuscular Volume 89.8 fL (78.0-98.0); Monocytes 2 % (0-10); Neutrophil 83 % (42-75); PLT Morphology Comment Appears Adequate; Platelet Count 209 thou/uL (130-400); RBC Distribution Width 15.4 % (11.5-14.5); Reactive Lymphocytes 1 % (0-10); White Blood Cell (WBC) Count 11.9 thou/uL (4.8-10.8)
[2018-07-27] MEDS: HumaLOG 300 UNITS/3 ML VIAL SC PRN ×2 (06:16→10:54)
[2018-07-27] MEDS: Nitroglycerin 0.4 MG TAB (25 Tab Bottle) SL PRN ×3 (07:10→08:26)
[2018-07-27] MEDS: Famotidine 20 MG TAB PO SCH ×2 (07:54→21:00)
[2018-07-27] MEDS: Ondansetron PF 4 MG/2 ML Vial IVP PRN (07:54)
[2018-07-27] MEDS: Atorvastatin Calcium 20 MG TAB PO SCH (07:54)
[2018-07-27] MEDS: Aspirin 325 MG TAB PO SCH (07:54)
[2018-07-27] MEDS: Doxycycline 100 MG CAP PO SCH (07:54)
[2018-07-27] MEDS: Amlodipine 5 MG TAB PO SCH (07:56)
[2018-07-27] MEDS ORDERED: cefTRIAXone Sodium 1,000 MG in Syringe 0 ML IVPB SCH (11:30)
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
--- NOTE | 2018-07-27 12:40 | PDOC.PN ---
- Subjective Encounter Start Date: 07/27/18 Encounter Start Time: 12:35 Subjective: f/u for L epidydimitis. c/o persistent severe pain, no fever. No diarrhea -: Nsg reports pt c/o CP earlier but EKG and trops negative. - Objective Resuscitation Status: Resuscitation Status FULL:Full Resuscitation MAR Reviewed: Yes Vital Signs & Weight: Vital Signs (12 hours) Temp Pulse Resp BP BP Pulse Ox 07/27/18 11:30 98.6 F 83 18 95/52 L 92 L 07/27/18 08:40 104/52 L 07/27/18 08:25 102/51 L 07/27/18 08:20 110/59 L 07/27/18 07:56 88 07/27/18 07:45 97.7 F 88 18 91/45 L 96 07/27/18 06:55 85 109/58 L 96 07/27/18 03:36 98.5 F 89 20 93/55 L 96 Weight Weight 223 lb I&O: 07/26/18 07/27/18 07/28/18 06:59 06:59 06:59 Intake Total 880 Output Total 600 Balance 280 Result Diagrams: 07/28/18 03:29 07/27/18 03:26 Additional Labs: Accuchecks 07/27/18 07/27/18 07/26/18 10:44 06:10 22:32 POC Glucose 193 H 220 H 308 H 07/26/18 07/26/18 20:39 17:51 POC Glucose 301 H 171 H Microbiology 04/02/18 18:40 Venous blood - Right Arm Blood Culture - Preliminary Specimen has been received and culture in progress. No Growth to date. 04/02/18 18:35 Venous blood - Left Hand Blood Culture - Preliminary Specimen has been received and culture in progress. No Growth to date. Laboratory Tests 04/02/18 04/02/18 07/26/18 17:30 17:30 08:05 WBC 14.5 H Hgb 10.7 L D-Dimer 8.02 H Radiology Reviewed by me: Yes (Testicular US - epidydimal edema L, normal flow) EKG Reviewed by me: Yes (Tele - SR) Phys Exam - Physical Examination mild distress, alert, responsive HEENT: PERRLA, sclera anicteric, oral pharynx no lesions Neck: no nodes, no JVD, supple, full ROM Respiratory: no wheezing, no rales, no rhonchi, clear to auscultation bilateral Cardiovascular: RRR, no significant murmur, no rub, gallop mild TTP in LLQ Gastrointestinal: soft, no distention, positive bowel sounds Musculoskeletal: no edema, pulses present Neurological: normal sensation, moves all 4 limbs Psychiatric: A&O x 3 Skin: normal turgor, cap refill <2 seconds Dx/Plan (1) Epididymitis, left Code(s): N45.1 - EPIDIDYMITIS Status: Acute Comment: Persistent pain in L testicle region, start Morphine Sulfate 4mg IV q4h, continue Relafen, Ice pack, Rocephin 1gm IV daily with plans for outpt IV abx (2) Chest pain Code(s): R07.9 - CHEST PAIN, UNSPECIFIED Status: Acute Qualifiers: Chest pain type: unspecified Qualified Code(s): R07.9 - Chest pain, unspecified Comment: No evidence of cardiac etiology, supportive mgmt (3) Leucocytosis Code(s): D72.829 - ELEVATED WHITE BLOOD CELL COUNT, UNSPECIFIED Status: Acute Comment: Improved, continue Rocephin, serial CBC (4) 3-vessel coronary artery disease Status: Chronic Comment: cabg x3 done in march 2018, continue ASA, Lipitor (5) Anxiety and depression Code(s): F41.9 - ANXIETY DISORDER, UNSPECIFIED; F32.9 - MAJOR DEPRESSIVE DISORDER, SINGLE EPISODE, UNSPECIFIED Status: Chronic (6) Tobacco abuse Code(s): Z72.0 - TOBACCO USE Status: Chronic Comment: Tobacco cessation resources - Plan continue antibiotics, social services counselor, out of bed/ambulate, DVT proph w/SCDs Stable currently -: Rocephin 1mg IV daily -: Plan for PICC line placement for outpt IV abx therapy -: Morphine Sulfate 4mg IV q4h prn -: [place] 5/325mg 1-2 po q4h prn pain * Appreciate Urology assistance * Convert to inpatient status due to need for IV abx and IV narcotics for pain control * AM lab: CBC
[2018-07-27] MEDS: cefTRIAXone\\ROCEPHIN 1 GM in Sodium Chloride 0.9% 100 ML IVPB SCH (12:43)
[2018-07-27] MEDS: Morphine 4 MG/ML VIAL IV PRN ×3 (12:44→21:07)
[2018-07-27] MEDS: Phenazopyridine HCl 97.5 MG TABLET PO SCH ×2 (12:45→16:06)
[2018-07-27] MEDS: Nabumetone 500 MG TAB PO SCH (20:57)
[2018-07-27] MEDS: Tamsulosin HCl 0.4 MG CAP PO SCH (20:59)
[2018-07-27] MEDS: clonazePAM 0.5 MG TAB PO SCH (21:00)
[2018-07-28] MEDS: Morphine 4 MG/ML VIAL IV PRN ×4 (02:02→14:04)
[2018-07-28 05:25] LABS: Band 4 % (5-11); Hemoglobin 12.8 g/dL (14.0-18.0); Lymphocytes 24 % (21-51); MDiff Complete? YES; Mean Corpuscular HGB CONC 32.7 g/dL (32.0-36.0); Mean Corpuscular Hemoglobin 29.6 pg (27.0-31.0); Mean Corpuscular Volume 90.6 fL (78.0-98.0); Mean Platelet Volume 9.2 fL (7.4-10.4); Monocytes 4 % (0-10); Neutrophil 68 % (42-75); Platelet Count 249 thou/uL (130-400); White Blood Cell (WBC) Count 17.6 thou/uL (4.8-10.8)
[2018-07-28] MEDS: Nabumetone 500 MG TAB PO SCH (08:50)
[2018-07-28] MEDS: Acetaminophen 500 MG TAB PO PRN ×2 (08:50→16:01)
[2018-07-28] MEDS: Famotidine 20 MG TAB PO SCH ×2 (08:50→20:36)
[2018-07-28] MEDS: Phenazopyridine HCl 97.5 MG TABLET PO SCH ×3 (08:50→18:27)
[2018-07-28] MEDS: Aspirin 325 MG TAB PO SCH (08:51)
[2018-07-28] MEDS: Atorvastatin Calcium 20 MG TAB PO SCH (08:52)
[2018-07-28] MEDS: Amlodipine 5 MG TAB PO SCH (08:52)
[2018-07-28] MEDS: Ketorolac Tromethamine 30 MG/ML VIAL IVP SCH ×2 (12:07→18:27)
[2018-07-28] MEDS: cefTRIAXone\\ROCEPHIN 1 GM in Sodium Chloride 0.9% 100 ML IVPB SCH (12:08)
--- NOTE | 2018-07-28 12:14 | PRG ---
DATE OF SERVICE: 07/28/2018 SUBJECTIVE: The patient is having more pain today. He is complaining of severe left-sided testicula r pain. He does get some relief when he takes the Relafen with the morphine, but states that this we ars off and then his pain is not well controlled afterwards. He did not do anything to aggravate thi s and is wearing the jockstrap as recommended along with using the ice packs. OBJECTIVE: VITAL SIGNS: Temperature 98.4, pulse 75, respirations 12, blood pressure 121/57, saturation 94% on r oom air. GENERAL: Appears in distress and pain, but is otherwise answering questions and communicating approp riately. CARDIOVASCULAR: Regular rate and rhythm. ABDOMEN: Soft, nontender, nondistended. Positive bowel sounds. NECK: No inguinal lymphadenopathy. CHEST: Clear anteriorly. No increased work of breathing. GENITOURINARY: Testicle still feels normal. There is no crepitus, induration, edema or erythema. T he epididymis is still indurated and very sensitive to touch. EXTREMITIES: No clubbing, cyanosis or edema. LABORATORY DATA: A full set of lab is in the [facility] system, which I reviewed. Of note, the patien t's white count has increased up to 17.6, although this is primarily a lymphocyte driven increase. N eutrophils remain normal at around 68%. Creatinine is normal at 0.96. ASSESSMENT AND PLAN: A 37-year-old white male with acute epididymitis with worsening of pain and royal vation in white count, which is primarily lymphocyte driven. I am not entirely sure what is driving his symptomatology at this time given that he has had a significant change in his medication regimen. I may put him back on his doxycycline that he was on previously and continue the Rocephin as camila wyman prescribed. I will have him stop the Relafen and put him on Toradol instead for 2 days scheduled . He is already on famotidine prophylaxis. We will also continue the scrotal support and ice packs as I previously recommended. If the patient continues to deteriorate, has persistent elevations in w oscar count or his pain is not improving, we may consider epididymectomy. The patient is currently on aspirin therapy, which would not be ideal for surgical intervention. I will go ahead and stop his a spirin currently in case we are planning to do a surgery. We can always restart his aspirin later if necessary. I will continue to follow along and make recommendations.
[2018-07-28] MEDS: Ondansetron PF 4 MG/2 ML Vial IVP PRN (16:01)
--- NOTE | 2018-07-28 16:48 | PDOC.PN ---
- Subjective Encounter Start Date: 07/28/18 Encounter Start Time: 16:40 Subjective: f/u for acute L epidydimitis on Rocephin/Doxycycline. Still with pain in -: testicle especially when ambulating or moving. No fever. Requiring IV -: Morphine, Toradol, [place] for relief. - Objective Resuscitation Status: Resuscitation Status FULL:Full Resuscitation MAR Reviewed: Yes Vital Signs & Weight: Vital Signs (12 hours) Temp Pulse Resp BP Pulse Ox 07/28/18 16:00 98.1 F 78 12 116/60 92 L 07/28/18 10:58 98.1 F 77 14 126/74 93 L 07/28/18 07:38 98.4 F 75 12 121/57 L 94 L Weight Weight 229 lb 4.8 oz I&O: 07/27/18 07/28/18 07/29/18 06:59 06:59 06:59 Intake Total 880 950 Output Total 600 Balance 280 950 Result Diagrams: 07/28/18 03:29 07/27/18 03:26 Additional Labs: Accuchecks 07/28/18 07/28/18 07/28/18 15:55 10:52 05:26 POC Glucose 104 139 H 107 07/27/18 20:33 POC Glucose 116 H Microbiology 04/02/18 18:40 Venous blood - Right Arm Blood Culture - Preliminary Specimen has been received and culture in progress. No Growth to date. 04/02/18 18:35 Venous blood - Left Hand Blood Culture - Preliminary Specimen has been received and culture in progress. No Growth to date. Laboratory Tests 04/02/18 04/02/18 07/26/18 17:30 17:30 08:05 WBC 14.5 H Hgb 10.7 L D-Dimer 8.02 H EKG Reviewed by me: Yes (Tele - SR) Phys Exam - Physical Examination Constitutional: NAD alert, responds to questions HEENT: PERRLA, sclera anicteric, oral pharynx no lesions Neck: no nodes, no JVD, supple, full ROM Respiratory: no wheezing, no rales, no rhonchi, clear to auscultation bilateral S1, S2 Cardiovascular: RRR, no significant murmur, no rub, gallop TTP in LLQ and suprapubic region Gastrointestinal: soft, no distention, positive bowel sounds Musculoskeletal: no edema, pulses present Neurological: normal sensation, moves all 4 limbs Psychiatric: A&O x 3 Skin: normal turgor, cap refill <2 seconds Dx/Plan (1) Epididymitis, left Code(s): N45.1 - EPIDIDYMITIS Status: Acute Comment: Persistent pain in L testicle region, start Morphine Sulfate 4mg IV q4h, continue Relafen, Ice pack, Rocephin 1gm IV dailyj, Doxycycline 100mg BID (2) Chest pain Code(s): R07.9 - CHEST PAIN, UNSPECIFIED Status: Acute Qualifiers: Chest pain type: unspecified Qualified Code(s): R07.9 - Chest pain, unspecified Comment: No evidence of cardiac etiology, supportive mgmt (3) Leucocytosis Code(s): D72.829 - ELEVATED WHITE BLOOD CELL COUNT, UNSPECIFIED Status: Acute Comment: Labile, continue Rocephin/Doxycycline, serial CBC (4) 3-vessel coronary artery disease Status: Chronic Comment: cabg x3 done in march 2018, continue ASA, Lipitor (5) Anxiety and depression Code(s): F41.9 - ANXIETY DISORDER, UNSPECIFIED; F32.9 - MAJOR DEPRESSIVE DISORDER, SINGLE EPISODE, UNSPECIFIED Status: Chronic (6) Tobacco abuse Code(s): Z72.0 - TOBACCO USE Status: Chronic Comment: Tobacco cessation resources - Plan continue antibiotics, case management social worker, out of bed/ambulate, DVT proph w/SCDs Stable currently -: Continue Rocephin 1gm IV daily -: Doxycycline 100mg BID -: Pain control with Morphine Sulfate IV, Toradol, [place] -: AM lab: CBC * .
[2018-07-28] MEDS: Doxycycline 100 MG CAP PO SCH (20:35)
[2018-07-28] MEDS: clonazePAM 0.5 MG TAB PO SCH (20:36)
[2018-07-28] MEDS: HYDROcodone/Acetaminophen 5/325 mg Tablet PO PRN (20:37)
[2018-07-28] MEDS: Tamsulosin HCl 0.4 MG CAP PO SCH (20:37)
[2018-07-29] MEDS: Ketorolac Tromethamine 30 MG/ML VIAL IVP SCH ×4 (00:08→18:14)
[2018-07-29] MEDS: Morphine 4 MG/ML VIAL IV PRN ×3 (02:29→14:18)
[2018-07-29 04:42] LABS: Eosinophils 10 % (0-10); Hemoglobin 12.3 g/dL (14.0-18.0); Lymphocytes 36 % (21-51); MDiff Complete? YES; Mean Corpuscular HGB CONC 32.5 g/dL (32.0-36.0); Mean Corpuscular Hemoglobin 29.7 pg (27.0-31.0); Mean Corpuscular Volume 91.2 fL (78.0-98.0); Mean Platelet Volume 8.6 fL (7.4-10.4); Monocytes 5 % (0-10); Neutrophil 47 % (42-75); Platelet Count 255 thou/uL (130-400); RBC Distribution Width 15.8 % (11.5-14.5); Reactive Lymphocytes 2 % (0-10); Red Blood Cell (RBC) Count 4.15 mill/uL (4.70-6.10)
[2018-07-29] MEDS: Famotidine 20 MG TAB PO SCH ×2 (07:48→21:08)
[2018-07-29] MEDS: Amlodipine 5 MG TAB PO SCH (07:48)
[2018-07-29] MEDS: Atorvastatin Calcium 20 MG TAB PO SCH (07:49)
[2018-07-29] MEDS: Doxycycline 100 MG CAP PO SCH ×2 (09:31→21:08)
[2018-07-29] MEDS: Phenazopyridine HCl 97.5 MG TABLET PO SCH ×3 (09:32→18:15)
--- NOTE | 2018-07-29 10:31 | PRG ---
DATE OF SERVICE: 07/29/2018 SUBJECTIVE: The patient's pain has not improved. He is currently on Toradol and morphine with Torad ol being scheduled. He states the pain is persistent, has not really gotten any better or worse. He denies any fevers. He has been using a jockstrap and ice packs as I had instructed and is currently taking doxycycline and ceftriaxone. OBJECTIVE: VITAL SIGNS: Temperature 97.3, pulse 82, respirations 20, blood pressure 151/95, saturation 94% on r oom air. GENERAL: No apparent distress, appears uncomfortable, but is otherwise communicative and alert. CARDIOVASCULAR: Regular rate and rhythm. CHEST: No increased work of breathing. Clear to auscultation. ABDOMEN: Soft, nontender, nondistended. Positive bowel sounds. GENITOURINARY: Testis does not demonstrate any crepitus. Scrotum has no crepitus, erythema, indurat ion or swelling. The epididymis is still the only structure that is very sensitive with induration a nd swelling with exquisite tenderness on the inferior aspect of the epididymis. The right testis and epididymis is normal. EXTREMITIES: No clubbing, cyanosis or edema. LABORATORY DATA: A full set of labs is in the [facility] system, which I have reviewed. Of note, the patient's white count is down to 10 with a hemoglobin of 12.3. ASSESSMENT AND PLAN: A 37-year-old white male with epididymitis, which is causing persistent pain de spite scheduled anti-inflammatories and antibiotics. It has only been 24 hours and sometimes it may take a little longer for things to improve, I did discuss epididymectomy with the patient, but he sta larry he does not really want to have surgery if he can avoid it and would like to try waiting this out a little bit longer. I told him that we will go ahead and wait another 24 hours, but if he does not show any signs of improvement in 24 hours, we should start giving consideration to epididymectomy in stead. He is in agreement with that plan. If we are going to do an epididymectomy, I may consider g etting an ultrasound again first to evaluate for abscesses. I will go ahead and plan for continuatio n of the same treatments that we have been doing today and we will continue to monitor and see how he does over the next 24 hours. I will continue to make recommendations and we will plan surgery if he does not improve.
[2018-07-29] MEDS: cefTRIAXone\\ROCEPHIN 1 GM in Sodium Chloride 0.9% 100 ML IVPB SCH (12:11)
[2018-07-29] MEDS: HumaLOG 300 UNITS/3 ML VIAL SC PRN (12:11)
--- NOTE | 2018-07-29 16:50 | PDOC.PN ---
- Subjective Encounter Start Date: 07/29/18 Encounter Start Time: 16:45 Subjective: f/u for L epidydimitis on current Rocephin/Doxycycline. Still with -: significant pain on Toradol/Morphine Sulfate/[place]. - Objective Resuscitation Status: Resuscitation Status FULL:Full Resuscitation MAR Reviewed: Yes Vital Signs & Weight: Vital Signs (12 hours) Temp Pulse Resp BP Pulse Ox 07/29/18 15:23 98.1 F 79 12 162/98 H 93 L 07/29/18 12:00 97.5 F L 81 20 138/90 92 L 07/29/18 08:18 97.3 F L 82 20 151/95 H 94 L 07/29/18 07:48 73 Weight Weight 229 lb 4.8 oz I&O: 07/28/18 07/29/18 07/30/18 06:59 06:59 06:59 Intake Total 950 Balance 950 Result Diagrams: 07/29/18 03:32 07/27/18 03:26 Additional Labs: Accuchecks 07/29/18 07/29/18 07/28/18 12:05 04:42 20:59 POC Glucose 212 H 96 127 H Microbiology 04/02/18 18:40 Venous blood - Right Arm Blood Culture - Preliminary Specimen has been received and culture in progress. No Growth to date. 04/02/18 18:35 Venous blood - Left Hand Blood Culture - Preliminary Specimen has been received and culture in progress. No Growth to date. Laboratory Tests 04/02/18 04/02/18 07/26/18 17:30 17:30 08:05 WBC 14.5 H Hgb 10.7 L D-Dimer 8.02 H 07/28/18 03:29 WBC 17.6 H Hgb D-Dimer EKG Reviewed by me: Yes Phys Exam - Physical Examination Constitutional: NAD pale, grimacing HEENT: PERRLA, sclera anicteric, oral pharynx no lesions Neck: no nodes, no JVD, supple, full ROM Respiratory: no wheezing, no rales, no rhonchi, clear to auscultation bilateral S1, S2 Cardiovascular: RRR, no significant murmur, no rub, gallop mild TTP in suprapubic region Gastrointestinal: soft, no distention, positive bowel sounds Musculoskeletal: no edema, pulses present Neurological: normal sensation, moves all 4 limbs Psychiatric: A&O x 3 Skin: no rash, normal turgor, cap refill <2 seconds Dx/Plan (1) Epididymitis, left Code(s): N45.1 - EPIDIDYMITIS Status: Acute Comment: Persistent pain in L testicle region, start Morphine Sulfate 4mg IV q4h, continue Relafen, Ice pack, Rocephin 1gm IV dailyj, Doxycycline 100mg BID, considering surgical intervention (2) Chest pain Code(s): R07.9 - CHEST PAIN, UNSPECIFIED Status: Acute Qualifiers: Chest pain type: unspecified Qualified Code(s): R07.9 - Chest pain, unspecified Comment: No evidence of cardiac etiology, supportive mgmt (3) Leucocytosis Code(s): D72.829 - ELEVATED WHITE BLOOD CELL COUNT, UNSPECIFIED Status: Acute Comment: Improved, continue Rocephin/Doxycycline, serial CBC (4) 3-vessel coronary artery disease Status: Chronic Comment: cabg x3 done in march 2018, continue ASA, Lipitor (5) Anxiety and depression Code(s): F41.9 - ANXIETY DISORDER, UNSPECIFIED; F32.9 - MAJOR DEPRESSIVE DISORDER, SINGLE EPISODE, UNSPECIFIED Status: Chronic (6) Tobacco abuse Code(s): Z72.0 - TOBACCO USE Status: Chronic Comment: Tobacco cessation resources - Plan plan discussed w/ family, continue antibiotics, out of bed/ambulate, DVT proph w /SCDs Stable currently -: continue Rocephin/Doxycycline -: Pain control with Toradol/Morphine Sulfate IV -: Ice packs prn -: ASA on hold * .
[2018-07-29] MEDS: clonazePAM 0.5 MG TAB PO SCH (21:08)
[2018-07-29] MEDS: Tamsulosin HCl 0.4 MG CAP PO SCH (21:08)
[2018-07-29 21:58] LABS: Chlamydia by PCR Not Detected (NotDetected); GC by PCR Not Detected (NotDetected)
[2018-07-30] MEDS: Ketorolac Tromethamine 30 MG/ML VIAL IVP SCH ×4 (01:35→23:59)
[2018-07-30] MEDS: Morphine 4 MG/ML VIAL IV PRN ×5 (03:07→19:51)
[2018-07-30] MEDS: Atorvastatin Calcium 20 MG TAB PO SCH (09:12)
[2018-07-30] MEDS: Amlodipine 5 MG TAB PO SCH (09:12)
[2018-07-30] MEDS: Doxycycline 100 MG CAP PO SCH ×2 (09:12→20:03)
[2018-07-30] MEDS: Phenazopyridine HCl 97.5 MG TABLET PO SCH ×3 (09:13→17:33)
[2018-07-30] MEDS: Famotidine 20 MG TAB PO SCH ×2 (09:13→20:04)
[2018-07-30] MEDS: HYDROcodone/Acetaminophen 5/325 mg Tablet PO PRN ×4 (09:14→21:28)
[2018-07-30] MEDS: cefTRIAXone\\ROCEPHIN 1 GM in Sodium Chloride 0.9% 100 ML IVPB SCH (11:30)
--- NOTE | 2018-07-30 13:29 | PRG ---
DATE OF SERVICE: 07/30/2018 SUBJECTIVE: The patient states his pain has only improved marginally. He is doing a little bit bett er, but still has exquisite amount of tenderness and pain in the scrotum. He has not had any fevers. OBJECTIVE: VITAL SIGNS: Temperature 97.9, pulse 92, respirations 20, blood pressure 120/96, saturation 96% on r oom air. GENERAL: No apparent distress, communicative and alert, although he does appear to be in pain. CHEST: Regular rate and rhythm. LUNGS: No increased work of breathing. ABDOMEN: Soft, nontender, nondistended, protuberant. GENITOURINARY: Scrotum is still without significant edema and no erythema. Testicle is exquisitely sensitive to palpation. I feel more so than yesterday. There is still a hard mass on the inferior a spect of the epididymis. Right testis is normal. EXTREMITIES: No clubbing, cyanosis or edema. LABORATORY DATA: There are no new labs today. ASSESSMENT AND PLAN: A 37-year-old white male with epididymitis, which is not improving despite dual antibiotic therapy and strong anti-inflammatories. Given this progression, I told the patient it pr obably will be most likely to be necessary to perform an epididymectomy. He is still very reluctant and wants to see if things will get better. I told him it is very unlikely things will improve at th is point given that more than 48 hours has elapsed and he has not really shown any significant improv ement. I am concerned that without this will likely progress towards abscess formation and prolonged and retracted testicular pain. The patient states he may be willing to undergo surgery, but wants t o wait a little bit longer. I will go ahead and get an ultrasound of the scrotum and evaluate to see if there is any abscess formation. I have my surgery day on , and I will go ahead and put h im on the surgery schedule for and told him that we can wait until then to see if he has sig nificant improvement. I do not expect any, but if some reason he does make significant improvement b y , we will cancel the surgery and continue to treat him conservatively. If he is still in a lot of pain and has not shown any significant improvement by , then we will go ahead and christiano e him to the operating room and perform an epididymectomy. I have gone over the surgery with all ris ks which include but are not limited to persistent or worsening infection, persistent pain, damage to the testicle, loss of the testicle, hematoma formation, scrotal abscess, need for further surgeries. He also understands that there may be a drain. He understands these risks and states he is willing to proceed forward if necessary.
--- NOTE | 2018-07-30 16:32 | ULT ---
BILATERAL TESTICULAR ULTRASOUND: HISTORY: Testicular pain. COMPARISON: Testicular ultrasound 07/16/2018. FINDINGS: The echotexture of the testicles is normal. There is microlithiasis throughout both epididymi. Mild hypervascularity of the epididymi. Mild skin thickening. No abnormal testicular mass. IMPRESSION: Mild hyperemia of the epididymi bilaterally with epididymal microlithiasis, likely sequelae of chroni c epididymitis which may be due to atypical infections process. POS: ASHLEYH
--- NOTE | 2018-07-30 16:49 | PDOC.PN ---
- Subjective Encounter Start Date: 07/30/18 Encounter Start Time: 16:40 Subjective: f/u for L epidydimitis on current Rocephin/Doxycycline. Still with pain in -: testicle and lower abd. - Objective Resuscitation Status: Resuscitation Status FULL:Full Resuscitation MAR Reviewed: Yes Vital Signs & Weight: Vital Signs (12 hours) Temp Pulse Resp BP BP Pulse Ox 07/30/18 15:45 97.7 F 82 16 154/95 H 95 07/30/18 12:00 97.9 F 92 20 128/96 H 96 07/30/18 09:12 90 127/71 07/30/18 08:00 99.2 F 90 20 123/76 90 L 07/30/18 07:30 90 L Weight Weight 229 lb 4.8 oz I&O: 07/29/18 07/30/18 07/31/18 06:59 06:59 06:59 Intake Total 600 Balance 600 Result Diagrams: 07/29/18 03:32 07/27/18 03:26 Additional Labs: Accuchecks 07/30/18 07/30/18 07/29/18 10:36 05:46 20:53 POC Glucose 149 H 76 108 07/29/18 16:36 POC Glucose 121 H Radiology Reviewed by me: Yes (Testicular sono - mild hyperemia of epidydimi) EKG Reviewed by me: Yes (Tele - SR) Phys Exam - Physical Examination Constitutional: NAD HEENT: PERRLA, sclera anicteric, oral pharynx no lesions Neck: no nodes, no JVD, supple, full ROM Respiratory: no wheezing, no rales, no rhonchi, clear to auscultation bilateral Cardiovascular: RRR, no significant murmur, no rub, gallop mild TTP in LLQ, suprapubic region Gastrointestinal: soft, no distention, positive bowel sounds Neurological: non-focal, normal sensation, moves all 4 limbs Psychiatric: A&O x 3 Skin: no rash, normal turgor, cap refill <2 seconds Dx/Plan (1) Epididymitis, left Code(s): N45.1 - EPIDIDYMITIS Status: Acute Comment: Persistent pain in L testicle region, start Morphine Sulfate 4mg IV q4h, continue Relafen, Ice pack, Rocephin 1gm IV dailyj, Doxycycline 100mg BID, likely epididymectomy on . (2) Chest pain Code(s): R07.9 - CHEST PAIN, UNSPECIFIED Status: Acute Qualifiers: Chest pain type: unspecified Qualified Code(s): R07.9 - Chest pain, unspecified Comment: No evidence of cardiac etiology, supportive mgmt, d/c tele (3) Leucocytosis Code(s): D72.829 - ELEVATED WHITE BLOOD CELL COUNT, UNSPECIFIED Status: Acute Comment: Improved, continue Rocephin/Doxycycline, serial CBC (4) 3-vessel coronary artery disease Status: Chronic Comment: cabg x3 done in march 2018, continue ASA, Lipitor (5) Anxiety and depression Code(s): F41.9 - ANXIETY DISORDER, UNSPECIFIED; F32.9 - MAJOR DEPRESSIVE DISORDER, SINGLE EPISODE, UNSPECIFIED Status: Chronic (6) Tobacco abuse Code(s): Z72.0 - TOBACCO USE Status: Chronic Comment: Tobacco cessation resources - Plan continue antibiotics, out of bed/ambulate, DVT proph w/SCDs Stable overall -: Continue Rocephin and Doxycycline -: Pain control with Morphine Sulfate/Toradol/[place] -: D/C Telemetry -: Transfer to medical floor * .
[2018-07-30] MEDS ORDERED: Ketorolac Tromethamine 30 MG/ML VIAL IVP SCH (18:00)
[2018-07-30] MEDS: clonazePAM 0.5 MG TAB PO SCH (20:03)
[2018-07-30] MEDS: Tamsulosin HCl 0.4 MG CAP PO SCH (20:03)
[2018-07-30] MEDS ORDERED: Acetaminophen 500 MG TAB PO PRN (22:07)
[2018-07-30] MEDS ORDERED: HumaLOG 300 UNITS/3 ML VIAL SC PRN ×2 (22:09→22:10)
[2018-07-30] MEDS ORDERED: Ondansetron ODT 4 MG TAB PO PRN (22:11)
[2018-07-30] MEDS ORDERED: cefTRIAXone\\ROCEPHIN 1 GM in Sodium Chloride 0.9% 100 ML IVPB SCH (22:15)
[2018-07-31] MEDS: Morphine 4 MG/ML VIAL IV PRN ×6 (03:39→23:49)
[2018-07-31] MEDS: Ketorolac Tromethamine 30 MG/ML VIAL IVP SCH ×2 (05:01→12:10)
[2018-07-31] MEDS: HYDROcodone/Acetaminophen 5/325 mg Tablet PO PRN ×5 (05:01→21:28)
[2018-07-31] MEDS: Doxycycline 100 MG CAP PO SCH ×2 (09:29→20:51)
[2018-07-31] MEDS: Atorvastatin Calcium 20 MG TAB PO SCH (09:29)
[2018-07-31] MEDS: Phenazopyridine HCl 97.5 MG TABLET PO SCH ×3 (09:29→17:20)
[2018-07-31] MEDS: Famotidine 20 MG TAB PO SCH ×2 (09:29→20:50)
[2018-07-31] MEDS: Amlodipine 5 MG TAB PO SCH (09:29)
[2018-07-31] MEDS: cefTRIAXone\\ROCEPHIN 1 GM in Sodium Chloride 0.9% 100 ML IVPB SCH (12:11)
[2018-07-31] MEDS: Ondansetron PF 4 MG/2 ML Vial IVP PRN ×2 (12:16→18:00)
[2018-07-31] MEDS ORDERED: Vancomycin HCl 1 GM in Premix Bag 1 BAG IVPB SCH (17:45)
--- NOTE | 2018-07-31 18:08 | PDOC.PN ---
- Subjective Encounter Start Date: 07/31/18 Encounter Start Time: 08:00 Pt seen for followup re: epididymitis. Reports left scrotal pain. No fevers. - Objective Resuscitation Status: Resuscitation Status FULL:Full Resuscitation Vital Signs & Weight: Vital Signs (12 hours) Temp Pulse Resp BP Pulse Ox 07/31/18 08:00 93 L 07/31/18 07:31 98.0 F 79 18 124/89 93 L Weight Weight 229 lb 4.8 oz I&O: 07/30/18 07/31/18 08/01/18 06:59 06:59 06:59 Intake Total 600 Balance 600 Result Diagrams: 07/29/18 03:32 07/27/18 03:26 Additional Labs: Accuchecks 07/31/18 07/31/18 07/31/18 16:14 11:30 05:05 POC Glucose 95 104 105 07/30/18 07/30/18 23:57 20:05 POC Glucose 110 140 H Phys Exam - Physical Examination Obese HEENT: moist MMs, sclera anicteric, oral pharynx no lesions, 2+ tonsils Neck: no nodes, no JVD, supple, full ROM Respiratory: no wheezing, no rales, no rhonchi, clear to auscultation bilateral Cardiovascular: RRR, no rub S1, S2 Gastrointestinal: soft, non-tender, positive bowel sounds distention; scrotal tenderness Neurological: moves all 4 limbs Psychiatric: normal affect, A&O x 3 Dx/Plan (1) Epididymitis, left Code(s): N45.1 - EPIDIDYMITIS Status: Acute Comment: Continue Ice pack, PRN morphine and [place], Rocephin 1gm IV daily and Doxycycline 100mg BID (2) CAD (coronary artery disease) Code(s): I25.10 - ATHSCL HEART DISEASE OF [place] CORONARY ARTERY W/O ANG PCTRS Status: Chronic Comment: stable (3) COPD (chronic obstructive pulmonary disease) Status: Acute Qualifiers: COPD type: chronic bronchitis Comment: stable (4) Obesity (BMI 30-39.9) Code(s): E66.9 - OBESITY, UNSPECIFIED Status: Chronic Comment: stable - Plan * . Review of Systems - Review of Systems Constitutional: negative: fever, chills, sweats, weakness, malaise Respiratory: Sputum. negative: Cough, Shortness of Breath, SOB with Excertion, Pleuritic Pain, Wheezing Cardiovascular: negative: chest pain, palpitations, orthopnea, paroxysmal nocturnal dyspnea, edema, light headedness Gastrointestinal: negative: Nausea, Vomiting, Abdominal Pain, Diarrhea, Constipation, Melena, Hematochezia Genitourinary: Other (scrotal pain). negative: Dysuria, Frequency, Incontinence , Hematuria, Retention Musculoskeletal: negative: Neck Pain, Shoulder Pain, Arm Pain, Back Pain, Hand Pain, Leg Pain, Foot Pain - Medications/Allergies Allergies/Adverse Reactions: Allergies Allergy/AdvReac Type Severity Reaction Status Date / Time Penicillins Allergy Severe Rash Verified 06/08/18 01:45 iodine Allergy Intermediate Verified 06/08/18 01:45 shellfish derived Allergy Verified 06/08/18 01:45 Sulfa (Sulfonamide Allergy Verified 06/08/18 01:45 Antibiotics) Medications: Current Medications Acetaminophen (Tylenol) 1,000 mg PO Q6H PRN PRN Reason: Headache/Fever or Mild Pain Hydrocodone Bitart/Acetaminophen ([place] 5/325) 1 tab PO Q4H PRN PRN Reason: Moderate Pain (4-6) Hydrocodone Bitart/Acetaminophen ([place] 5/325) 2 tab PO Q4H PRN PRN Reason: Moderate to Severe Pain (6-10) Last Admin: 07/31/18 17:19 Dose: 2 tab Amlodipine Besylate (Norvasc) 5 mg PO DAILY [facility] Last Admin: 07/31/18 09:29 Dose: 5 mg Atorvastatin Calcium (Lipitor) 20 mg PO DAILY [facility] Last Admin: 07/31/18 09:29 Dose: 20 mg Clonazepam (Klonopin) 0.5 mg PO [facility] Doxycycline Hyclate (Vibramycin) 100 mg PO BID [facility] Last Admin: 07/31/18 09:29 Dose: 100 mg Famotidine (Pepcid) 20 mg PO BID [facility] Last Admin: 07/31/18 09:29 Dose: 20 mg Ceftriaxone Sodium 1 gm/ (Sodium Chloride) 100 mls @ 200 mls/hr IVPB 1200 [facility] Stop: 08/10/18 12:01 Last Admin: 07/31/18 12:11 Dose: 100 mls Vancomycin HCl 1 gm/ Device 200 mls @ 200 mls/hr IVPB ONCALL-OR [facility] Stop: 08/01/18 23:00 Insulin Human Lispro (Humalog) 0 units SC .MILD SLIDING SCALE PRN PRN Reason: Mild Correctional Scale Insulin Human Lispro (Humalog) 0 units SC .BEDTIME SLIDING SC PRN PRN Reason: Bedtime Correctional Scale Morphine Sulfate (Morphine) 4 mg IV Q4H PRN PRN Reason: Moderate to Severe Pain (6-10) Last Admin: 07/31/18 15:19 Dose: 4 mg Nitroglycerin (Nitrostat) 0.4 mg SL Q5MIN PRN PRN Reason: Chest Pain IF SBP>100 Ondansetron HCl (Zofran Odt) 4 mg PO Q6H PRN PRN Reason: Nausea/Vomiting Ondansetron HCl (Zofran) 4 mg IVP Q6H PRN PRN Reason: Nausea/Vomiting Last Admin: 07/31/18 18:00 Dose: 4 mg Phenazopyridine HCl (Azo Standard) 97.5 mg PO PC [facility] Last Admin: 07/31/18 17:20 Dose: 97.5 mg Phenytoin Sodium (Dilantin Er) 200 mg PO BID [facility] Last Admin: 07/31/18 09:29 Dose: 200 mg Quetiapine Fumarate (Seroquel) 700 mg PO HS [facility] Sodium Chloride (Flush - Normal Saline) 10 ml IVF Q12HR [facility] Last Admin: 07/31/18 07:29 Dose: 10 ml Sodium Chloride (Flush - Normal Saline) 10 ml IVF PRN PRN PRN Reason: Saline Flush Tamsulosin HCl (Flomax) 0.4 mg PO HS [facility]
--- NOTE | 2018-07-31 18:39 | PRG ---
DATE OF SERVICE: 07/31/2018 SUBJECTIVE: The patient states he is still having about the equal amount of pain that he has had yes terday. He has not really had any significant improvement. He denies any fevers, changes in the scr otum or swelling. He had an ultrasound yesterday which did not demonstrate any testicular abscesses and basically shows inflammation of the epididymis without obvious abscess formation or serious compl ication. OBJECTIVE: VITAL SIGNS: Temperature 98, pulse 79, respirations 18, blood pressure 124/89, saturation 93% on bailey m air. GENERAL: No apparent distress, communicative and alert. CARDIOVASCULAR: Regular rate and rhythm. CHEST: No increased work of breathing. ABDOMEN: Soft, nontender, nondistended. Positive bowel sounds. EXTREMITIES: No clubbing, cyanosis or edema. GENITOURINARY: Stable exam. No obvious change with significant sensitivity of the epididymis on the left. LABORATORY DATA AND IMAGING DATA: On laboratory evaluation, a full set of labs are in the [facility], which I have reviewed. No new CBC today. Ultrasound report demonstrates mild hyperemia of th e epididymides bilaterally with microlithiasis likely sequelae of chronic epididymitis due to atypica l infectious process. ASSESSMENT AND PLAN: A 37-year-old white male with diabetes with left epididymitis, which is failing to resolve with standard conservative measures. Despite NSAIDs, narcotics and a double antibiotic c overage, at this point, I think the best option would be to go ahead and go forward with epididymecto my which has already been scheduled for tomorrow. We will make him n.p.o. after midnight and continu e his antibiotic regimen as scheduled. After the epididymectomy, I will leave a [place] drain and we will monitor him for at least 24 hours at which point he can probably be discharged home once he is stable and his pain is properly controlled and I will handle his care on an outpatient basis.
[2018-07-31] MEDS: clonazePAM 0.5 MG TAB PO SCH (20:50)
[2018-07-31] MEDS: Tamsulosin HCl 0.4 MG CAP PO SCH (20:51)
[2018-08-01] MEDS ORDERED: Nitroglycerin 2% Ointment 1 INCH/1 GM Packet TOP SCH (06:00)
[2018-08-01] MEDS: Morphine 4 MG/ML VIAL IV PRN ×4 (06:10→20:46)
[2018-08-01] MEDS: Ondansetron PF 4 MG/2 ML Vial IVP PRN ×2 (06:36→10:45)
[2018-08-01] MEDS: Doxycycline 100 MG CAP PO SCH ×2 (10:50→20:44)
[2018-08-01] MEDS: Famotidine 20 MG TAB PO SCH ×2 (10:50→20:44)
[2018-08-01] MEDS: Atorvastatin Calcium 20 MG TAB PO SCH (10:50)
[2018-08-01] MEDS: Amlodipine 5 MG TAB PO SCH (10:50)
[2018-08-01] MEDS: Phenazopyridine HCl 97.5 MG TABLET PO SCH ×3 (10:51→18:35)
[2018-08-01] MEDS ORDERED: Vancomycin HCl 1 GM in Premix Bag 1 BAG IVPB SCH (11:00)
[2018-08-01] MEDS: cefTRIAXone\\ROCEPHIN 1 GM in Sodium Chloride 0.9% 100 ML IVPB SCH (11:06)
[2018-08-01] MEDS ORDERED: Bupivacaine 0.25% HCL 30 ML VIAL ONE (11:16)
[2018-08-01] MEDS ORDERED: HYDROmorphone 0.5 MG/0.5 ML SYRINGE ONE (11:49)
[2018-08-01] MEDS ORDERED: Nitroglycerin 0.4 MG TAB (25 Tab Bottle) ONE (12:18)
[2018-08-01 13:05] LABS: Troponin I Less than 0.010 ng/mL (< 0.028)
[2018-08-01] MEDS ORDERED: Labetalol HCl 100 MG/20 ML VIAL ONE (13:18)
--- NOTE | 2018-08-01 15:33 | PDOC.PN ---
- Subjective Encounter Start Date: 08/01/18 Encounter Start Time: 15:30 Pt seen in followup re: chest pain. Pt was in surgery day stay for procedure when he developed chest pain. c/o left-sided chest pain, tightness-like. No nausea or vomiting. Reports having similar pain 4 weeks ago. - Objective Resuscitation Status: Resuscitation Status FULL:Full Resuscitation MAR Reviewed: Yes Vital Signs & Weight: Vital Signs (12 hours) Temp Pulse Resp BP Pulse Ox 08/01/18 10:50 90 08/01/18 08:00 97 08/01/18 07:00 98.2 F 90 16 100/68 97 Weight Weight 229 lb 4.8 oz I&O: 07/31/18 08/01/18 08/02/18 06:59 06:59 06:59 Intake Total 600 480 Balance 600 480 Result Diagrams: 07/29/18 03:32 07/27/18 03:26 Additional Labs: Accuchecks 08/01/18 08/01/18 07/31/18 11:19 06:13 20:49 POC Glucose 89 92 112 H 07/31/18 16:14 POC Glucose 95 EKG Reviewed by me: Yes (EKG: NSR) Phys Exam - Physical Examination Obese HEENT: moist MMs, sclera anicteric, oral pharynx no lesions, 2+ tonsils Neck: no nodes, no JVD, supple, full ROM Respiratory: no wheezing, no rales, no rhonchi, clear to auscultation bilateral Cardiovascular: RRR, no rub S1, S2 Gastrointestinal: soft, non-tender, no distention, positive bowel sounds scrotal tenderness Neurological: moves all 4 limbs Psychiatric: normal affect, A&O x 3 Dx/Plan (1) Chest pain Code(s): R07.9 - CHEST PAIN, UNSPECIFIED Status: Acute Comment: first troponin negative, recheck. EKG unremarkable. VQ scan pending. Transfer pt to telemetry. Pt has a h/o CABG, consult cardiology for opinion. (2) Epididymitis, left Code(s): N45.1 - EPIDIDYMITIS Status: Acute Comment: continue antibiotics as below, epidydimectomy canceled due to chest pain (3) COPD (chronic obstructive pulmonary disease) Status: Chronic Qualifiers: COPD type: chronic bronchitis Comment: stable (4) Obesity (BMI 30-39.9) Code(s): E66.9 - OBESITY, UNSPECIFIED Status: Chronic Comment: stable - Plan * . Review of Systems - Review of Systems Constitutional: negative: fever, chills, sweats, weakness, malaise Respiratory: negative: Cough, Shortness of Breath, SOB with Excertion, Pleuritic Pain, Wheezing Cardiovascular: chest pain. negative: palpitations, orthopnea, paroxysmal nocturnal dyspnea, edema, light headedness Gastrointestinal: negative: Nausea, Vomiting, Abdominal Pain, Diarrhea, Constipation, Melena, Hematochezia Genitourinary: Other (pain in scrotum). negative: Dysuria, Frequency, Incontinence, Hematuria, Retention Musculoskeletal: negative: Neck Pain, Shoulder Pain, Arm Pain, Back Pain, Hand Pain, Leg Pain, Foot Pain - Medications/Allergies Allergies/Adverse Reactions: Allergies Allergy/AdvReac Type Severity Reaction Status Date / Time Penicillins Allergy Severe Rash Verified 06/08/18 01:45 iodine Allergy Intermediate Verified 06/08/18 01:45 shellfish derived Allergy Verified 06/08/18 01:45 Sulfa (Sulfonamide Allergy Verified 06/08/18 01:45 Antibiotics) Medications: Current Medications Acetaminophen (Tylenol) 1,000 mg PO Q6H PRN PRN Reason: Headache/Fever or Mild Pain Hydrocodone Bitart/Acetaminophen ([place] 5/325) 1 tab PO Q4H PRN PRN Reason: Moderate Pain (4-6) Hydrocodone Bitart/Acetaminophen ([place] 5/325) 2 tab PO Q4H PRN PRN Reason: Moderate to Severe Pain (6-10) Last Admin: 07/31/18 21:28 Dose: 2 tab Amlodipine Besylate (Norvasc) 5 mg PO DAILY [facility] Last Admin: 08/01/18 10:50 Dose: Not Given Atorvastatin Calcium (Lipitor) 20 mg PO DAILY [facility] Last Admin: 08/01/18 10:50 Dose: Not Given Clonazepam (Klonopin) 0.5 mg PO HS [facility] Last Admin: 07/31/18 20:50 Dose: 0.5 mg Doxycycline Hyclate (Vibramycin) 100 mg PO BID [facility] Last Admin: 08/01/18 10:50 Dose: Not Given Famotidine (Pepcid) 20 mg PO BID [facility] Last Admin: 08/01/18 10:50 Dose: Not Given Ceftriaxone Sodium 1 gm/ (Sodium Chloride) 100 mls @ 200 mls/hr IVPB 1200 [facility] Stop: 08/10/18 12:01 Last Admin: 08/01/18 11:06 Dose: 100 mls Vancomycin HCl 1 gm/ Device 200 mls @ 200 mls/hr IVPB ONCALL-OR [facility] Stop: 08/01/18 23:00 Insulin Human Lispro (Humalog) 0 units SC .MILD SLIDING SCALE PRN PRN Reason: Mild Correctional Scale Insulin Human Lispro (Humalog) 0 units SC .BEDTIME SLIDING SC PRN PRN Reason: Bedtime Correctional Scale Morphine Sulfate (Morphine) 4 mg IV Q4H PRN PRN Reason: Moderate to Severe Pain (6-10) Last Admin: 08/01/18 10:01 Dose: 4 mg Nitroglycerin (Nitrostat) 0.4 mg SL Q5MIN PRN PRN Reason: Chest Pain IF SBP>100 Ondansetron HCl (Zofran Odt) 4 mg PO Q6H PRN PRN Reason: Nausea/Vomiting Ondansetron HCl (Zofran) 4 mg IVP Q6H PRN PRN Reason: Nausea/Vomiting Last Admin: 08/01/18 10:45 Dose: 4 mg Phenazopyridine HCl (Azo Standard) 97.5 mg PO PC [facility] Last Admin: 08/01/18 15:08 Dose: 97.5 mg Phenytoin Sodium (Dilantin Er) 200 mg PO BID [facility] Last Admin: 08/01/18 10:19 Dose: 200 mg Quetiapine Fumarate (Seroquel) 700 mg PO [facility] Last Admin: 07/31/18 20:52 Dose: 700 mg Sodium Chloride (Flush - Normal Saline) 10 ml IVF Q12HR [facility] Last Admin: 08/01/18 11:06 Dose: 10 ml Sodium Chloride (Flush - Normal Saline) 10 ml IVF PRN PRN PRN Reason: Saline Flush Tamsulosin HCl (Flomax) 0.4 mg PO HS [facility] Last Admin: 07/31/18 20:51 Dose: 0.4 mg
--- NOTE | 2018-08-01 15:45 | NM ---
VENTILATION PERFUSION STUDY: Date: 08/01/18 HISTORY: Chest pain. Recently had surgery. COMPARISON: 04/03/18. RADIOPHARMACEUTICAL: 6.7 mCi Xenon-133, gas inhaled. 6.3 mCi technetium-99m labeled MAA, IV. FINDINGS: There is slight heterogeneity of uptake within the lungs on the ventilation study, but there is hallie l washout present. No ventilation defect is appreciated. Perfusion images demonstrate normal perfusion gradient. No segmental or subsegmental defect is identi fied and there is no evidence of a ventilation perfusion mismatch. The previously questioned defect i n the lingular segment left upper lobe on the prior exam on 04/03/18 is not appreciated on today's ex am. IMPRESSION: Low probability for pulmonary embolus. POS: [facility]
--- NOTE | 2018-08-01 15:46 | RAD ---
CHEST TWO VIEWS: Comparison: 07-12-18 History: Correlate with VQ scan. FINDINGS: Sternotomy wires are noted. Normal cardiac silhouette. The pulmonary vessels are diminished. Costophr enic angles are clear. Patchy interstitial opacities and alveolar opacities with the lower lobes. No pneumothorax or osseous abnormality. IMPRESSION: Interstitial and alveolar opacities. POS: [facility]
--- NOTE | 2018-08-01 15:56 | PRG ---
DATE OF SERVICE: 08/01/2018 SUBJECTIVE: The patient did not have any problems overnight. His pain has been stable. It is still not gone and has been essentially the same since a few days ago. I have seen him in preop in [facility] for his epididymectomy. Shortly before going back for surgery, the patient began complaining o f significant substernal chest pain, which felt like an elephant sitting on his chest with pain radia ting into his left arm and into his jaw. As such, I ordered an EKG with blood work and consulted Dr. Cabrera, who recommended we cancel the surgery. The patient then had a code green called on him as h e became significantly tachycardic into the 150s, it was unclear if this was artifactual or real. In either case, things resolved and the patient began feeling better, although the pain in his chest is not completely gone. OBJECTIVE: VITAL SIGNS: Temperature 98.2, pulse 92, respirations 16, blood pressure 100/68, saturation 97% on r oom air. GENERAL: Appears slightly uncomfortable, otherwise in no severe distress, nondiaphoretic, communicat evelyn and alert, talking to me. CARDIOVASCULAR: Regular rate and rhythm. Normal S1, S2. Symmetric pulses. CHEST: Clear to auscultation, no increased work of breathing. ABDOMEN: Soft, nontender, nondistended, positive bowel sounds. GENITOURINARY: Scrotum appears stable. No significant changes, no erythema, crepitus. The epididym is is still indurated and very sensitive. SKIN: Warm, dry, good turgor, no rashes or lesions. No sweat. EXTREMITIES: No clubbing, cyanosis or edema. LABORATORY DATA: Troponin is less than 0.01. IMAGING DATA: I reviewed his EKG, which does not demonstrate any significant ST elevations. ASSESSMENT AND PLAN: A 37-year-old white male with a history of diabetes and coronary artery bypass graft with new onset substernal chest pain concerning for possible cardiac etiology. Given the curr ent workup, I do not think this is of cardiac origin, but there is no reason that we should not get a cardiac clearance prior to going forward with the surgery. I have already cancelled the surgery for today and explained to the patient that we can probably do it tomorrow or early next week pending Dr Juan Cabrera's evaluation. I will leave him off the surgery schedule until he has been cleared by Dr. Gretchen madison. If he gets all clear, then we will plan to do surgery next week or tomorrow. If he is not teresita ar, then his cardiac issues may need to be addressed prior to any kind of surgical intervention of hi s epididymis and we may have to continue conservative management or PICC line therapy until then.
[2018-08-01 16:33] LABS: #Basophils 0.1 thou/uL (0.0-0.2); #Eosinphils 0.9 thou/uL (0.0-0.7); #Lymphocytes 2.8 thou/uL (1.20-3.40); #Neutrophils 9.2 thou/uL (1.40-6.50); %Basophils 0.4 % (0.0-1.0); %Eosinophils 6.7 % (0.0-10.0); %Lymphocytes 19.7 % (21.0-51.0); %Monocytes 7.2 % (0.0-10.0); Hemoglobin 12.9 g/dL (14.0-18.0); Mean Corpuscular HGB CONC 32.3 g/dL (32.0-36.0); Mean Corpuscular Hemoglobin 28.9 pg (27.0-31.0); Mean Corpuscular Volume 89.7 fL (78.0-98.0); Mean Platelet Volume 7.6 fL (7.4-10.4); Platelet Count 294 thou/uL (130-400); RBC Distribution Width 15.6 % (11.5-14.5); Red Blood Cell (RBC) Count 4.45 mill/uL (4.70-6.10)
[2018-08-01 16:55] LABS: ALT (SGPT) 20 U/L (8-55); AST (SGOT) 19 U/L (5-34); Albumin 3.8 g/dL (3.5-5.0); Alkaline Phosphatase 78 U/L (40-150); Anion Gap 12 mmol/L (10-20); BUN (Urea Nitrogen) 12 mg/dL (8.9-20.6); Bilirubin, Total 0.3 mg/dL (0.2-1.2); Calc. Creatinine Clearance 155 mL/min (70-130); Calcium 8.9 mg/dL (7.8-10.44); Carbon Dioxide 26 mmol/L (22-29); Chloride 106 mmol/L (98-107); Estimated GFR-MDRD 89; Globulin 2.7 g/dL (2.4-3.5); Glucose 82 mg/dL (70-105); Potassium 4.3 mmol/L (3.5-5.1); Protein, Total 6.5 g/dL (6.0-8.3); Sodium 140 mmol/L (136-145)
[2018-08-01 16:59] LABS: Troponin I Less than 0.010 ng/mL (< 0.028)
[2018-08-01] MEDS ORDERED: ALPRAZolam 0.5 MG TAB PO SCH (19:00)
[2018-08-01] MEDS: HYDROcodone/Acetaminophen 5/325 mg Tablet PO PRN ×3 (19:58→23:27)
[2018-08-01] MEDS: Tamsulosin HCl 0.4 MG CAP PO SCH (20:45)
[2018-08-01] MEDS: clonazePAM 0.5 MG TAB PO SCH (20:45)
[2018-08-01 20:49] LABS: Troponin I Less than 0.010 ng/mL (< 0.028)
--- NOTE | 2018-08-01 23:20 | CON ---
DATE OF CONSULTATION: 08/01/2018 REASON FOR CONSULTATION: Chest pain. HISTORY OF PRESENT ILLNESS: Mr. Batres is a 37-year-old gentleman with a long history of chest pain, who had recurrent pain today. Please see the previous notes for full details. Briefly, Mr. Batres has a long history of chest pain. He was admitted to the hospital on multiple occasions at [place] [facility] [place]. After catheterization had been done, those catheterization films are not available to me. A pparently, he was told that the lesions in his coronaries were not critically stenosed, but he did ne ed bypass surgery in the degree of chest pain he had seemed out of proportion to his coronary artery disease, but he still needed surgery. He left against medical advice on at least one occasion there. Patient had recurrent chest pain here. There were no EKG changes and cardiac enzymes were negative in April. There have been multiple admissions to the hospital in March. He did have slight elevation s in troponin with peak of troponin of 0.278 in 03/20. I explained to the patient and family that he would likely continue to have chest pain after surgery, which he indeed has. He did undergo surgery, Dr. Carvajal on 03/25/2018 with internal mammary to the LAD, saphenous vei n graft to the first obtuse marginal and posterior descending artery. The patient per Dr. Carvajal noted at that time indicate the patient refused surgical revasculariz ation, left the hospital AMA returned shortly thereafter with more chest pain initially agreed to [facility], then left [facility], presented again with recurrent chest pain. The patient well with his recurrent episodes of chest pain, has had negative troponins. The patient has been found to have severe epididymitis and went down for surgery today and while wait ing to be preoped, he said he got very anxious and started having recurrent chest pain felt like an " elephant on his chest." Cardiac enzymes were obtained. They were all negative. EKG did not show an y ischemic changes. There is a rhythm strip at single lead what appears to show artifact probably compatible with lead mo vement. REVIEW OF SYSTEMS: Constitutional: Positive for anxiety. Vision: No changes. Hearing: No change s. Pulmonary: No cough or wheezing. Cardiac: As outlined above. Gastrointestinal: No nausea, vo miting, diarrhea. Skin: No rashes. Neurologic: No unilateral weakness or numbness. Psychiatric: Positive for some anxiety. SOCIAL HISTORY: He did smoke after surgery, but he said he stopped that few weeks after surgery. PHYSICAL EXAMINATION: GENERAL: This is a somewhat anxious young man 37 years of age. VITAL SIGNS: Blood pressure is 110/69, pulse 90. LUNGS: Clear. CARDIOVASCULAR: Normal S1, normal S2. ABDOMEN: Soft, nontender. EXTREMITIES: There is no edema. LABORATORY DATA AND X-RAY FINDINGS: Reviewed and EKG, there are no ischemic changes with the chest p ain. Cardiac enzymes were also negative. Troponin less than 0.010. Rhythm strips shows what appear s to be artifact. ASSESSMENT: 1. Chest pain which has been present before and after bypass surgery. He was told it did seem to be out of proportion to the degree of stenosis. I did not ever have access to the actual catheterizati on films, from what I was told they were not critical stenosis, but were significant after the bypass . 2. No evidence of any ischemia. 3. Rhythm strip showing probable artifact. 4. Epididymitis, which needs to be repaired a relatively urgently per Dr. Terry. 5. Anxiety. PLAN: 1. Okay to proceed to surgery tomorrow. 2. Ejection fraction most recently has been normal. Postoperative status at 50%-55%.
[2018-08-02] MEDS: Morphine 4 MG/ML VIAL IV PRN ×4 (01:02→22:57)
[2018-08-02] MEDS: HYDROcodone/Acetaminophen 5/325 mg Tablet PO PRN ×3 (05:14→21:03)
[2018-08-02] MEDS: Doxycycline 100 MG CAP PO SCH ×2 (09:40→20:45)
[2018-08-02] MEDS: Famotidine 20 MG TAB PO SCH ×2 (09:41→20:46)
[2018-08-02] MEDS: Phenazopyridine HCl 97.5 MG TABLET PO SCH ×3 (09:41→18:32)
[2018-08-02] MEDS: Atorvastatin Calcium 20 MG TAB PO SCH (09:41)
[2018-08-02] MEDS: Amlodipine 5 MG TAB PO SCH (09:42)
[2018-08-02] MEDS ORDERED: Sodium Chloride 0.9% 1,000 ML IV SCH (10:45)
[2018-08-02] MEDS: cefTRIAXone\\ROCEPHIN 1 GM in Sodium Chloride 0.9% 100 ML IVPB SCH (12:18)
[2018-08-02] MEDS ORDERED: Nitroglycerin 2% Ointment 1 INCH/1 GM Packet ONE (13:03)
[2018-08-02] MEDS ORDERED: Bupivacaine 0.25% HCL 30 ML VIAL ONE ×2 (13:24→14:50)
[2018-08-02] MEDS ORDERED: Fentanyl 100 MCG/2 ML VIAL ONE ×4 (13:34→16:01)
[2018-08-02] MEDS ORDERED: Midazolam HCl 2 mg/2 ml Vial ONE ×2 (13:34→13:46)
[2018-08-02] MEDS ORDERED: Fentanyl 250 MCG/5 ML VIAL ONE (13:46)
[2018-08-02] MEDS ORDERED: Sodium Chloride 0.9% 10 ML ONE (14:19)
[2018-08-02] MEDS ORDERED: PHENYLEPHRINE-NS 100 MCG/ML 10 ML SYRINGE ONE (14:34)
[2018-08-02] MEDS ORDERED: PROPOFOL 200 MG/20 ML VIAL ONE (14:34)
[2018-08-02] MEDS ORDERED: Lidocaine 1% PF 5 ML VIAL ONE (14:34)
[2018-08-02] MEDS ORDERED: Esmolol 100 MG/10 ML VIAL ONE (14:34)
[2018-08-02] MEDS ORDERED: ePHEDrine/0.9% NaCl/PF SYRINGE 50 mg/10 ml ONE (14:34)
[2018-08-02] MEDS ORDERED: Ondansetron HCl/PF 4 MG/2 ML Vial IVP PRN (16:09)
[2018-08-02] MEDS ORDERED: Promethazine HCl 25 MG/ML VIAL SLOW IVP PRN (16:09)
[2018-08-02] MEDS ORDERED: HYDROmorphone 2 MG/ML VIAL SLOW IVP PRN (16:09)
[2018-08-02] MEDS ORDERED: Promethazine HCl 25 MG/ML VIAL IM PRN (16:09)
--- NOTE | 2018-08-02 17:53 | PDOC.PN ---
- Subjective Encounter Start Date: 08/02/18 Encounter Start Time: 07:40 Pt seen for followup re: epididymitis. Denies chest pain. Scrotal pain still present. - Objective Resuscitation Status: Resuscitation Status FULL:Full Resuscitation Vital Signs & Weight: Vital Signs (12 hours) Temp Pulse Resp BP BP Pulse Ox 08/02/18 09:42 72 106/63 08/02/18 08:00 93 L 08/02/18 07:57 96.6 F L 72 16 106/63 92 L Weight Weight 226 lb I&O: 08/01/18 08/02/18 08/03/18 06:59 06:59 06:59 Intake Total 480 880 Balance 480 880 Result Diagrams: 08/01/18 16:27 08/01/18 16:27 Additional Labs: Accuchecks 08/02/18 08/02/18 08/01/18 11:39 05:26 20:05 POC Glucose 84 100 115 H Phys Exam - Physical Examination Constitutional: NAD HEENT: moist MMs, sclera anicteric, oral pharynx no lesions, 2+ tonsils Neck: no nodes, no JVD, supple, full ROM Respiratory: no wheezing, no rales, no rhonchi, clear to auscultation bilateral Cardiovascular: RRR, no rub S1, S2 Gastrointestinal: soft, non-tender, no distention, positive bowel sounds scrotal tenderness on left side Neurological: moves all 4 limbs Psychiatric: normal affect, A&O x 3 Dx/Plan (1) Epididymitis, left Code(s): N45.1 - EPIDIDYMITIS Status: Acute Comment: continue antibiotics as below, pt likely to go for surgery today (2) COPD (chronic obstructive pulmonary disease) Status: Chronic Qualifiers: COPD type: chronic bronchitis Comment: stable (3) Obesity (BMI 30-39.9) Code(s): E66.9 - OBESITY, UNSPECIFIED Status: Chronic Comment: stable (4) Chest pain Code(s): R07.9 - CHEST PAIN, UNSPECIFIED Status: Resolved - Plan * . Review of Systems - Review of Systems Constitutional: negative: fever, chills, sweats, weakness, malaise Cardiovascular: negative: chest pain, palpitations, orthopnea, paroxysmal nocturnal dyspnea, edema, light headedness Gastrointestinal: negative: Nausea, Vomiting, Abdominal Pain, Diarrhea, Constipation, Melena, Hematochezia Genitourinary: Other (scrotal pain). negative: Dysuria, Frequency, Incontinence , Hematuria, Retention Musculoskeletal: negative: Neck Pain, Shoulder Pain, Arm Pain, Back Pain, Hand Pain, Leg Pain, Foot Pain Neurological: negative: Weakness, Numbness, Incoordination, Change in Speech, Confusion, Seizures - Medications/Allergies Allergies/Adverse Reactions: Allergies Allergy/AdvReac Type Severity Reaction Status Date / Time Penicillins Allergy Severe Rash Verified 06/08/18 01:45 iodine Allergy Intermediate Verified 06/08/18 01:45 shellfish derived Allergy Verified 06/08/18 01:45 Sulfa (Sulfonamide Allergy Verified 06/08/18 01:45 Antibiotics) Medications: Current Medications Acetaminophen (Tylenol) 1,000 mg PO Q6H PRN PRN Reason: Headache/Fever or Mild Pain Hydrocodone Bitart/Acetaminophen ([place] 5/325) 1 tab PO Q4H PRN PRN Reason: Moderate Pain (4-6) Last Admin: 08/02/18 05:14 Dose: 1 tab Hydrocodone Bitart/Acetaminophen ([place] 5/325) 2 tab PO Q4H PRN PRN Reason: MODERATE TO SEVER PAIN 7-10 Last Admin: 08/01/18 23:27 Dose: 2 tab Alprazolam (Xanax) 0.5 mg PO [facility] Stop: 08/02/18 19:01 Amlodipine Besylate (Norvasc) 5 mg PO DAILY [facility] Last Admin: 08/02/18 09:42 Dose: 5 mg Atorvastatin Calcium (Lipitor) 20 mg PO DAILY [facility] Last Admin: 08/02/18 09:41 Dose: 20 mg Clonazepam (Klonopin) 0.5 mg PO HS [facility] Last Admin: 08/01/18 20:45 Dose: 0.5 mg Doxycycline Hyclate (Vibramycin) 100 mg PO BID [facility] Last Admin: 08/02/18 09:40 Dose: 100 mg Famotidine (Pepcid) 20 mg PO BID [facility] Last Admin: 08/02/18 09:41 Dose: 20 mg Fentanyl (Pacu-Sublimaze) 50 mcg SLOW IVP Q10MIN PRN PRN Reason: Moderate to Severe Pain (6-10) Stop: 08/02/18 19:09 Hydromorphone HCl (Pacu-Dilaudid) 0.5 mg SLOW IVP Q10MIN PRN PRN Reason: Moderate to Severe Pain (6-10) Stop: 08/02/18 19:09 Ceftriaxone Sodium 1 gm/ (Sodium Chloride) 100 mls @ 200 mls/hr IVPB 1200 [facility] Stop: 08/10/18 12:01 Last Admin: 08/02/18 12:18 Dose: 100 mls Insulin Human Lispro (Humalog) 0 units SC .MILD SLIDING SCALE PRN PRN Reason: Mild Correctional Scale Insulin Human Lispro (Humalog) 0 units SC .BEDTIME SLIDING SC PRN PRN Reason: Bedtime Correctional Scale Morphine Sulfate (Morphine) 4 mg IV Q4H PRN PRN Reason: Moderate to Severe Pain (6-10) Last Admin: 08/02/18 09:39 Dose: 4 mg Nitroglycerin (Nitrostat) 0.4 mg SL Q5MIN PRN PRN Reason: Chest Pain IF SBP>100 Nitroglycerin (Nitro-Bid 2% Ointment) 1 inch TOP [facility] Stop: 08/02/18 19:00 Ondansetron HCl (Zofran Odt) 4 mg PO Q6H PRN PRN Reason: Nausea/Vomiting Ondansetron HCl (Zofran) 4 mg IVP Q6H PRN PRN Reason: Nausea/Vomiting Last Admin: 08/01/18 10:45 Dose: 4 mg Ondansetron HCl (Pacu-Zofran) 4 mg IVP ONE PRN PRN Reason: Nausea/Vomiting Stop: 08/02/18 19:09 Phenazopyridine HCl (Azo Standard) 97.5 mg PO [facility] Last Admin: 08/02/18 09:41 Dose: 97.5 mg Phenytoin Sodium (Dilantin Er) 200 mg PO BID [facility] Last Admin: 08/02/18 09:40 Dose: 200 mg Promethazine HCl (Pacu-Phenergan) 6.25 mg SLOW IVP ONE PRN PRN Reason: Nausea/Vomiting Stop: 08/02/18 19:09 Promethazine HCl (Pacu-Phenergan) 6.25 mg IM ONE PRN PRN Reason: Nausea/Vomiting Stop: 08/02/18 19:09 Quetiapine Fumarate (Seroquel) 700 mg PO [facility] Last Admin: 08/01/18 20:44 Dose: 700 mg Sodium Chloride (Flush - Normal Saline) 10 ml IVF PRN PRN PRN Reason: Saline Flush Last Admin: 08/02/18 10:48 Dose: 10 ml Tamsulosin HCl (Flomax) 0.4 mg PO HS [facility] Last Admin: 08/01/18 20:45 Dose: 0.4 mg
[2018-08-02] MEDS: clonazePAM 0.5 MG TAB PO SCH (20:45)
[2018-08-02] MEDS: Tamsulosin HCl 0.4 MG CAP PO SCH (20:46)
--- NOTE | 2018-08-02 22:44 | OP ---
DATE OF SURGERY: 08/02/2018 SERVICE: Urology. SURGEON: Hernan Terry M.D. PREOPERATIVE DIAGNOSIS: Left epididymitis. POSTOPERATIVE DIAGNOSIS: Left epididymitis. PROCEDURE PERFORMED: Left epididymectomy and orchiopexy. INDICATIONS FOR PROCEDURE: Mr. Batres is a 37-year-old white male who initially came into the ER for recurrent epididymitis after an outpatient course of antibiotics. He had fevers, but his ultrasound did not show any abscess. He was admitted to the hospital for IV antibiotics and pain medication. Unfortunately after approximately 4-5 days, the patient has not improved and has had persistent and c ontinued severe testicular pain which has been refractory to all medications. Due to the level of pa in that he is experiencing, we have elected to proceed forward with an epididymectomy. Risks and rachel efits have been discussed and he has agreed to proceed forward. DESCRIPTION OF PROCEDURE: After identification of arm and verification of consent, the patient was b rought back to the operating room and he underwent general anesthesia with an LMA. He was left in arias pine position and prepped and draped in usual sterile fashion. After appropriate timeout, a cord blo ck was performed with 0.25% Marcaine plain. An incision was made over the left hemiscrotum in a hori zontal fashion and dissection was carried down through the dartos and spermatic fascias with Bovie el ectrocautery. The testicle was delivered outside the scrotum and the tunica vaginalis was opened usi ng tenotomy scissors and then divided cephalad and inferiorly with Bovie electrocautery. The testicl e was then everted and inspected. The testicle appeared normal and healthy. The epididymis was pink and indurated and had significant nodularity at the inferior aspect where the patient's pain was the highest. The appendix testis was removed and using a Garrett tip on the Bovie with a coag setting at 20, the epididymis was carefully dissected off using primarily the Bovie electrocautery taking car e to avoid the spermatic vessels. The entire epididymis was dissected free of the epididymis and sub mitted for routine pathologic evaluation. There was one area that had mild bleeding on the posterior aspect of the testicle, which was closed with a 4-0 Vicryl in a [id number] fashion. The remain matilda of the tissues could be cauterized with a coag function to stop all bleeders. The vas was cut on this side as necessary to remove the epididymis. The testicle appeared healthy. Afterwards, it did not show any signs of ischemia; however, it was on a very thin stalk and had significant risk for po ssible torsion after removing the surrounding tissues and the epididymis. As such, I felt that it wa s best to perform an orchiopexy to avoid torsion and this would be difficult to diagnose in the posto perative period. A 4-0 Prolene was used in a 3-point fixation on the lateral, medial, and inferior a spect of the testicle affixed to the dartos. Before tying it down, a Ene drain was brought in th rough the inferior aspect of the testicle and placed into the scrotal sac. A 3-0 nylon was used as a drain stitch. The testicle was then replaced back into the scrotum and the Prolene sutures tied darlin n gently. The scrotum was thoroughly irrigated with antibiotic irrigation and the dartos closed with a running 2-0 Vicryl and the skin closed with a 4-0 Monocryl. There was an inadvertent cautery inju ry made on the superior aspect of the scrotum into the scrotal pouch. This was closed with a 2-0 Marlon ryl from underneath and a 4-0 Monocryl from above. Dermabond was applied to the entire incision line . 0.25% Marcaine plain was then reinjected into the incision line and another cord block performed f or approximate use of around 16-18 mL. Once the Dermabond was dried, scrotal fluffs were applied. T he patient was awakened and taken to PACU for recovery in stable condition. COMPLICATIONS: None. ESTIMATED BLOOD LOSS: Minimal. RETAINED TUBES OR DRAINS: A quarter-inch Ene drain. SPECIMENS: Epididymis. DISPOSITION: The patient will be kept in the hospital for postoperative recovery and telemetry monit oring as long. As long as his pain is controlled and he is doing well, he can probably be discharged home on doxycycline alone as this seems to have worked well for him initially upon presentation. I do not think he will need IV antibiotics anymore or PICC line given that he has had an epididymectomy . Most of the infection should be cleared with a surgery itself.
[2018-08-03] MEDS: HYDROcodone/Acetaminophen 5/325 mg Tablet PO PRN (02:33)
[2018-08-03 05:33] LABS: Anion Gap 11 mmol/L (10-20); BUN (Urea Nitrogen) 10 mg/dL (8.9-20.6); Calc. Creatinine Clearance 158 mL/min (70-130); Calcium 8.8 mg/dL (7.8-10.44); Carbon Dioxide 26 mmol/L (22-29); Chloride 104 mmol/L (98-107); Estimated GFR-MDRD Greater than 90; Glucose 151 mg/dL (70-105); Potassium 3.9 mmol/L (3.5-5.1); Sodium 137 mmol/L (136-145)
[2018-08-03 05:34] LABS: #Eosinphils 0.9 thou/uL (0.0-0.7); #Lymphocytes 2.5 thou/uL (1.20-3.40); #Monocytes 0.6 thou/uL (0.11-0.59); #Neutrophils 5.4 thou/uL (1.40-6.50); %Basophils 0.1 % (0.0-1.0); %Eosinophils 9.5 % (0.0-10.0); %Lymphocytes 26.9 % (21.0-51.0); %Neutrophils 57.5 % (42.0-75.0); Hemoglobin 12.1 g/dL (14.0-18.0); Mean Corpuscular HGB CONC 33.2 g/dL (32.0-36.0); Mean Corpuscular Hemoglobin 29.8 pg (27.0-31.0); Mean Corpuscular Volume 89.8 fL (78.0-98.0); Mean Platelet Volume 7.8 fL (7.4-10.4); Platelet Count 260 thou/uL (130-400); RBC Distribution Width 15.6 % (11.5-14.5); Red Blood Cell (RBC) Count 4.06 mill/uL (4.70-6.10); White Blood Cell (WBC) Count 9.5 thou/uL (4.8-10.8)
[2018-08-03] MEDS: Morphine 4 MG/ML VIAL IV PRN (05:50)
[2018-08-03] MEDS: Doxycycline 100 MG CAP PO SCH ×2 (08:32→21:51)
[2018-08-03] MEDS: Phenazopyridine HCl 97.5 MG TABLET PO SCH ×3 (08:32→17:21)
[2018-08-03] MEDS: Atorvastatin Calcium 20 MG TAB PO SCH (08:33)
[2018-08-03] MEDS: Famotidine 20 MG TAB PO SCH ×2 (08:33→21:50)
[2018-08-03] MEDS: Amlodipine 5 MG TAB PO SCH (08:33)
--- NOTE | 2018-08-03 08:33 | EKG ---
Test Reason : PREOP Blood Pressure : / mmHG Vent. Rate : 104 BPM Atrial Rate : 104 BPM P-R Int : 156 ms QRS Dur : 080 ms QT Int : 364 ms P-R-T Axes : 041 065 072 degrees QTc Int : 478 ms Sinus tachycardia Nonspecific ST abnormality Abnormal ECG When compared with ECG of 27-JUL-2018 06:36, (Unconfirmed) No significant change was found Confirmed by ROSETTA WAGNER ([id number]) on 08/03/2018 8:33:29 AM Referred By: ZACK Confirmed By:ROSETTA WAGNER
--- NOTE | 2018-08-03 08:34 | EKG ---
Test Reason : REPEAT EKG Blood Pressure : / mmHG Vent. Rate : 099 BPM Atrial Rate : 099 BPM P-R Int : 154 ms QRS Dur : 080 ms QT Int : 350 ms P-R-T Axes : 047 072 081 degrees QTc Int : 449 ms Normal sinus rhythm Normal ECG When compared with ECG of 01-AUG-2018 12:29, (Unconfirmed) No significant change was found Confirmed by ROSETTA WAGNER ([id number]) on 08/03/2018 8:33:44 AM Referred By: ZACK Confirmed By:ROSETTA WAGNER
[2018-08-03] MEDS ORDERED: Ketorolac Tromethamine 10 MG TAB PO PRN (09:47)
[2018-08-03] MEDS: Acetaminophen/Codeine 30-300mg Tablet PO PRN ×2 (09:59→17:22)
[2018-08-03] MEDS: Nitroglycerin 0.4 MG TAB (25 Tab Bottle) SL PRN (11:48)
[2018-08-03] MEDS ORDERED: Ketorolac Tromethamine 30 MG/ML VIAL IVP SCH (12:30)
[2018-08-03] MEDS: cefTRIAXone\\ROCEPHIN 1 GM in Sodium Chloride 0.9% 100 ML IVPB SCH (12:45)
[2018-08-03] MEDS: traMADol HCl 50 MG TAB PO PRN ×2 (12:59→21:48)
[2018-08-03 13:23] LABS: Troponin I Less than 0.010 ng/mL (< 0.028)
--- NOTE | 2018-08-03 15:45 | CON ---
DATE OF CONSULTATION: 08/03/2018 DATE OF ADMISSION: 07/27/2018 REASON FOR EVALUATION: 1. Status post a left epididymectomy. 2. Left epididymitis without improvement in chronic left testicular pain. HISTORY OF PRESENT ILLNESS: Mr. Yunier Batres is a 37-year-old white male with a history of coronary artery disease status post coronary artery bypass graft in 03/2018, who has persistent cardiac chest pain and angina apparently at rest. In addition, he has chronic left testicular pain and had recent epididymitis. He underwent a left epididymectomy by Dr. Terry on 08/02/2018. Mr. Batres today is in the throes complaining of chest pain episode at the time of evaluation. He reports pain in his ch est and radiation into his neck. He also reports that prior to his chest pain episode, he was having a left hemiscrotal pain associated with the surgical site. PHYSICAL EXAMINATION: GENERAL: This is a heavy set white male in no apparent distress. HEENT: Extraocular movements are intact. Sclerae are anicteric. Oropharynx is clear. NECK: Supple. The patient reports left-sided neck pain. LUNGS: Clear to auscultation bilaterally. CARDIAC: There is a regular rate and rhythm. Chest wall shows a median sternotomy scar which is wel l healed and chest tube sites. ABDOMEN: Soft, obese, and nontender. GENITOURINARY: He has a mons pubis pannus and the genital examination finds testes present in the sc rotum bilaterally. His left-sided surgical incisional scar which is sutured closed. The drain prese nt with a small amount of drainage onto the padding within the patient's athletic supporter. There i s no focal mass, black coloration or other signs of acute process other than post-surgical healing. VITAL SIGNS: The patient has been afebrile with temperature of 90 degrees F, pulse 85, respirations 18, O2 saturation on room air is 96%, blood pressure is 130/69. LABORATORY: Today show the patient's white count down to 9500 from 14,000 yesterday. There is no ev idence of left shift. His previous left shift with an ANC of 9.2 has resolved to 5.4, indicating tammy e improvement. Microbiology results: The patient has not had any positive cultures during any of his recent hospita lizations. ASSESSMENT AND PLAN: Status post left epididymectomy with general improvement. Patient has normal p ostsurgical pain in the scrotum which does not appear to be extreme or more than what is expected. T he patient would be suitable for outpatient management if he was not having acute cardiac syndrome.
--- NOTE | 2018-08-03 17:06 | PDOC.PN ---
- Subjective Encounter Start Date: 08/03/18 Encounter Start Time: 12:40 Pt seen for followup re: epididymitis. Reports on and off chest pain. Scrotal pain is better. No nausea or vomiting. - Objective Resuscitation Status: Resuscitation Status FULL:Full Resuscitation MAR Reviewed: Yes Vital Signs & Weight: Vital Signs (12 hours) Temp Pulse Resp BP BP BP Pulse Ox 08/03/18 11:43 98 F 85 18 130/69 96 08/03/18 08:33 80 121/78 08/03/18 08:00 97.8 F 93 16 121/78 95 Weight Weight 225 lb I&O: 08/02/18 08/03/18 08/04/18 06:59 06:59 06:59 Intake Total 880 1200 360 Balance 880 1200 360 Result Diagrams: 08/03/18 05:04 08/03/18 05:04 Additional Labs: Accuchecks 08/03/18 08/03/18 08/02/18 10:44 05:20 20:41 POC Glucose 121 H 201 H 121 H EKG Reviewed by me: Yes (EKG: NSR) Phys Exam - Physical Examination Obese Neck: no nodes, no JVD, supple, full ROM Respiratory: clear to auscultation bilateral Cardiovascular: RRR, no rub S1, S2 Gastrointestinal: soft, non-tender, no distention, positive bowel sounds scrotal drain Musculoskeletal: no edema Neurological: moves all 4 limbs Psychiatric: normal affect, A&O x 3 Dx/Plan (1) Epididymitis, left Code(s): N45.1 - EPIDIDYMITIS Status: Acute Comment: s/p epididymectomy, continue ceftriaxone and doxycycline for now, doxycycline at the time of discharge (2) Chest pain Code(s): R07.9 - CHEST PAIN, UNSPECIFIED Status: Acute Comment: EKG unremarkable, check troponins. Recent normal VQ scan. (3) COPD (chronic obstructive pulmonary disease) Status: Ruled-out Qualifiers: COPD type: chronic bronchitis Comment: stable (4) Obesity (BMI 30-39.9) Code(s): E66.9 - OBESITY, UNSPECIFIED Status: Chronic Comment: stable - Plan * . Review of Systems - Review of Systems Constitutional: negative: fever, chills, sweats, weakness, malaise Respiratory: negative: Cough, Shortness of Breath, SOB with Excertion, Pleuritic Pain, Wheezing Cardiovascular: chest pain. negative: palpitations, orthopnea, paroxysmal nocturnal dyspnea, edema, light headedness Gastrointestinal: negative: Nausea, Vomiting, Abdominal Pain, Diarrhea, Constipation, Melena, Hematochezia Genitourinary: Other (scrotal pain). negative: Dysuria, Frequency, Incontinence , Hematuria, Retention Musculoskeletal: negative: Neck Pain, Shoulder Pain, Arm Pain, Back Pain, Hand Pain, Leg Pain, Foot Pain - Medications/Allergies Allergies/Adverse Reactions: Allergies Allergy/AdvReac Type Severity Reaction Status Date / Time Penicillins Allergy Severe Rash Verified 06/08/18 01:45 iodine Allergy Intermediate Verified 06/08/18 01:45 shellfish derived Allergy Verified 06/08/18 01:45 Sulfa (Sulfonamide Allergy Verified 06/08/18 01:45 Antibiotics) Medications: Current Medications Acetaminophen (Tylenol) 1,000 mg PO Q6H PRN PRN Reason: Headache/Fever or Mild Pain Acetaminophen/Codeine Phosphate (Tylenol #3) 1 tab PO Q6H PRN PRN Reason: Pain 1-3 Last Admin: 08/03/18 09:59 Dose: 1 tab Amlodipine Besylate (Norvasc) 5 mg PO DAILY [facility] Last Admin: 08/03/18 08:33 Dose: 5 mg Atorvastatin Calcium (Lipitor) 20 mg PO DAILY [facility] Last Admin: 08/03/18 08:33 Dose: 20 mg Clonazepam (Klonopin) 0.5 mg PO HS [facility] Last Admin: 08/02/18 20:45 Dose: 0.5 mg Doxycycline Hyclate (Vibramycin) 100 mg PO BID [facility] Last Admin: 08/03/18 08:32 Dose: 100 mg Famotidine (Pepcid) 20 mg PO BID [facility] Last Admin: 08/03/18 08:33 Dose: 20 mg Ceftriaxone Sodium 1 gm/ (Sodium Chloride) 100 mls @ 200 mls/hr IVPB 1200 [facility] Stop: 08/10/18 12:01 Last Admin: 08/03/18 12:45 Dose: 100 mls Insulin Human Lispro (Humalog) 0 units SC .MILD SLIDING SCALE PRN PRN Reason: Mild Correctional Scale Insulin Human Lispro (Humalog) 0 units SC .BEDTIME SLIDING SC PRN PRN Reason: Bedtime Correctional Scale Ketorolac Tromethamine (Toradol) 10 mg PO Q8HR PRN PRN Reason: pain Stop: 08/08/18 14:01 Nitroglycerin (Nitrostat) 0.4 mg SL Q5MIN PRN PRN Reason: Chest Pain IF SBP>100 Last Admin: 08/03/18 11:48 Dose: 0.4 mg Ondansetron HCl (Zofran Odt) 4 mg PO Q6H PRN PRN Reason: Nausea/Vomiting Last Admin: 08/03/18 04:22 Dose: 4 mg Ondansetron HCl (Zofran) 4 mg IVP Q6H PRN PRN Reason: Nausea/Vomiting Last Admin: 08/01/18 10:45 Dose: 4 mg Phenazopyridine HCl (Azo Standard) 97.5 mg PO PC [facility] Last Admin: 08/03/18 13:02 Dose: 97.5 mg Phenytoin Sodium (Dilantin Er) 200 mg PO BID [facility] Last Admin: 08/03/18 08:32 Dose: 200 mg Quetiapine Fumarate (Seroquel) 700 mg PO HS [facility] Last Admin: 08/02/18 20:45 Dose: 700 mg Sodium Chloride (Flush - Normal Saline) 10 ml IVF PRN PRN PRN Reason: Saline Flush Last Admin: 08/03/18 13:04 Dose: 10 ml Tamsulosin HCl (Flomax) 0.4 mg PO HS [facility] Last Admin: 08/02/18 20:46 Dose: 0.4 mg Tramadol HCl (Ultram) 50 mg PO Q6H PRN PRN Reason: pain 4-6 Last Admin: 08/03/18 12:59 Dose: 50 mg
[2018-08-03 17:19] LABS: Troponin I Less than 0.010 ng/mL (< 0.028)
[2018-08-03] MEDS ORDERED: Lorazepam 2 MG/ML VIAL SLOW IVP PRN (20:54)
[2018-08-03] MEDS ORDERED: levETIRAcetam In NaCl (Iso-Os) 1,000 MG in Premix Bag 1 BAG IVPB SCH (21:00)
[2018-08-03 21:05] LABS: #Basophils 0.1 thou/uL (0.0-0.2); #Eosinphils 0.9 thou/uL (0.0-0.7); #Lymphocytes 3.1 thou/uL (1.20-3.40); #Neutrophils 4.5 thou/uL (1.40-6.50); %Basophils 0.8 % (0.0-1.0); %Eosinophils 9.2 % (0.0-10.0); %Lymphocytes 32.2 % (21.0-51.0); %Monocytes 10.5 % (0.0-10.0); %Neutrophils 47.4 % (42.0-75.0); Hemoglobin 13.8 g/dL (14.0-18.0); Mean Corpuscular HGB CONC 33.3 g/dL (32.0-36.0); Mean Corpuscular Hemoglobin 29.9 pg (27.0-31.0); Mean Corpuscular Volume 89.7 fL (78.0-98.0); Mean Platelet Volume 7.5 fL (7.4-10.4); Platelet Count 295 thou/uL (130-400); RBC Distribution Width 15.6 % (11.5-14.5); Red Blood Cell (RBC) Count 4.62 mill/uL (4.70-6.10); White Blood Cell (WBC) Count 9.5 thou/uL (4.8-10.8)
[2018-08-03 21:29] LABS: BUN (Urea Nitrogen) 11 mg/dL (8.9-20.6); Calc. Creatinine Clearance 138 mL/min (70-130); Calcium 9.9 mg/dL (7.8-10.44); Carbon Dioxide 27 mmol/L (22-29); Chloride 103 mmol/L (98-107); Dilantin 12.2 ug/mL (10.0-20.0); Estimated GFR-MDRD 79; Glucose 102 mg/dL (70-105); Potassium 4.2 mmol/L (3.5-5.1); Sodium 138 mmol/L (136-145)
[2018-08-03 21:36] LABS: Anion Gap 12 mmol/L (10-20)
[2018-08-03] MEDS: clonazePAM 0.5 MG TAB PO SCH (21:50)
[2018-08-03] MEDS: Tamsulosin HCl 0.4 MG CAP PO SCH (21:51)
--- NOTE | 2018-08-03 21:51 | CT ---
NONCONTRAST HEAD CT: 08/03/19 COMPARISON: 02/26/17. HISTORY: Altered mental status. Patient has had a seizure. FINDINGS: No parenchymal hemorrhage. No extra-axial hematoma. No midline shift. Basilar cisterns are patent. Br ain volume, age appropriate. Cortical gregg-white matter differentiation is preserved. Ventricles and sulci are patent and symmetric. Adequate aeration of the sinuses and mastoids air cells. Calvarium is intact. IMPRESSION: No acute intracranial process. POS: PPP
[2018-08-04 06:24] LABS: #Basophils 0.1 thou/uL (0.0-0.2); #Eosinphils 0.8 thou/uL (0.0-0.7); #Lymphocytes 2.8 thou/uL (1.20-3.40); #Monocytes 0.8 thou/uL (0.11-0.59); #Neutrophils 3.9 thou/uL (1.40-6.50); %Basophils 0.8 % (0.0-1.0); %Lymphocytes 33.9 % (21.0-51.0); %Monocytes 9.2 % (0.0-10.0); %Neutrophils 46.1 % (42.0-75.0); Hemoglobin 13.7 g/dL (14.0-18.0); Mean Corpuscular HGB CONC 32.8 g/dL (32.0-36.0); Mean Corpuscular Hemoglobin 29.3 pg (27.0-31.0); Mean Corpuscular Volume 89.4 fL (78.0-98.0); Platelet Count 274 thou/uL (130-400); RBC Distribution Width 15.7 % (11.5-14.5); Red Blood Cell (RBC) Count 4.67 mill/uL (4.70-6.10); White Blood Cell (WBC) Count 8.4 thou/uL (4.8-10.8)
[2018-08-04] MEDS: Nitroglycerin 0.4 MG TAB (25 Tab Bottle) SL PRN ×2 (06:34→16:55)
[2018-08-04 06:35] LABS: Anion Gap 17 mmol/L (10-20); BUN (Urea Nitrogen) 10 mg/dL (8.9-20.6); Calc. Creatinine Clearance 185 mL/min (70-130); Calcium 9.5 mg/dL (7.8-10.44); Carbon Dioxide 22 mmol/L (22-29); Chloride 106 mmol/L (98-107); Estimated GFR-MDRD Greater than 90; Glucose 95 mg/dL (70-105); Sodium 141 mmol/L (136-145)
[2018-08-04] MEDS: Phenazopyridine HCl 97.5 MG TABLET PO SCH ×3 (09:49→17:28)
[2018-08-04] MEDS: Amlodipine 5 MG TAB PO SCH (09:50)
[2018-08-04] MEDS: Atorvastatin Calcium 20 MG TAB PO SCH (09:50)
[2018-08-04] MEDS: Doxycycline 100 MG CAP PO SCH (09:50)
[2018-08-04] MEDS: Famotidine 20 MG TAB PO SCH (09:50)
[2018-08-04] MEDS: traMADol HCl 50 MG TAB PO PRN (09:51)
[2018-08-04] MEDS: cefTRIAXone\\ROCEPHIN 1 GM in Sodium Chloride 0.9% 100 ML IVPB SCH (10:50)
--- NOTE | 2018-08-04 15:01 | PDOC.PN ---
- Subjective Encounter Start Date: 08/04/18 Encounter Start Time: 08:00 Pt seen for followup re: epididymitis. Denies chest pain, shortness of breath. Reports he had a seizure last night. - Objective Resuscitation Status: Resuscitation Status FULL:Full Resuscitation MAR Reviewed: Yes Vital Signs & Weight: Vital Signs (12 hours) Temp Pulse Resp BP BP Pulse Ox 08/04/18 13:00 14 92 L 08/04/18 09:50 89 08/04/18 09:45 98 F 81 14 117/70 91 L 08/04/18 03:50 97.6 F 89 14 109/67 92 L Weight Weight 225 lb 11.2 oz I&O: 08/03/18 08/04/18 08/05/18 06:59 06:59 06:59 Intake Total 1200 1080 200 Output Total 775 Balance 1200 305 200 Result Diagrams: 08/04/18 05:47 08/04/18 05:47 Additional Labs: Accuchecks 08/04/18 08/04/18 08/03/18 10:28 05:40 20:30 POC Glucose 83 92 111 H 08/03/18 16:41 POC Glucose 107 EKG Reviewed by me: Yes (Tele: NSR) Phys Exam - Physical Examination Constitutional: NAD HEENT: moist MMs Neck: supple Respiratory: clear to auscultation bilateral Cardiovascular: RRR Gastrointestinal: soft Neurological: moves all 4 limbs Psychiatric: normal affect Dx/Plan (1) Epididymitis, left Code(s): N45.1 - EPIDIDYMITIS Status: Acute Comment: s/p epididymectomy. Will continue ceftriaxone and doxycycline for now (2) Chest pain Code(s): R07.9 - CHEST PAIN, UNSPECIFIED Status: Acute Comment: no chest pain today (3) Seizure Code(s): R56.9 - UNSPECIFIED CONVULSIONS Status: Acute Comment: Pt has a h/ o seizure disorder, phenytoin level is therapeutic. Started on keppra, await EEG. (4) COPD (chronic obstructive pulmonary disease) Status: Chronic Qualifiers: COPD type: chronic bronchitis Comment: stable (5) Obesity (BMI 30-39.9) Code(s): E66.9 - OBESITY, UNSPECIFIED Status: Chronic Comment: stable - Plan * . Review of Systems - Review of Systems Respiratory: negative: Cough, Shortness of Breath, SOB with Excertion, Pleuritic Pain, Wheezing Cardiovascular: negative: chest pain, palpitations, orthopnea, paroxysmal nocturnal dyspnea, edema, light headedness Neurological: Seizures. negative: Weakness, Numbness, Incoordination, Change in Speech, Confusion - Medications/Allergies Allergies/Adverse Reactions: Allergies Allergy/AdvReac Type Severity Reaction Status Date / Time Penicillins Allergy Severe Rash Verified 06/08/18 01:45 iodine Allergy Intermediate Verified 06/08/18 01:45 shellfish derived Allergy Verified 06/08/18 01:45 Sulfa (Sulfonamide Allergy Verified 06/08/18 01:45 Antibiotics) Medications: Current Medications Acetaminophen (Tylenol) 1,000 mg PO Q6H PRN PRN Reason: Headache/Fever or Mild Pain Acetaminophen/Codeine Phosphate (Tylenol #3) 1 tab PO Q6H PRN PRN Reason: Pain 1-3 Last Admin: 08/03/18 17:22 Dose: 1 tab Amlodipine Besylate (Norvasc) 5 mg PO DAILY [facility] Last Admin: 08/04/18 09:50 Dose: 5 mg Atorvastatin Calcium (Lipitor) 20 mg PO DAILY [facility] Last Admin: 08/04/18 09:50 Dose: 20 mg Clonazepam (Klonopin) 0.5 mg PO HS [facility] Last Admin: 08/03/18 21:50 Dose: 0.5 mg Doxycycline Hyclate (Vibramycin) 100 mg PO BID [facility] Last Admin: 08/04/18 09:50 Dose: 100 mg Famotidine (Pepcid) 20 mg PO BID [facility] Last Admin: 08/04/18 09:50 Dose: 20 mg Ceftriaxone Sodium 1 gm/ (Sodium Chloride) 100 mls @ 200 mls/hr IVPB 1200 [facility] Stop: 08/10/18 12:01 Last Admin: 08/04/18 10:50 Dose: 100 mls Levetiracetam 500 mg/ Device 100 mls @ 200 mls/hr IVPB BID [facility] Last Admin: 08/04/18 09:49 Dose: 100 mls Insulin Human Lispro (Humalog) 0 units SC .MILD SLIDING SCALE PRN PRN Reason: Mild Correctional Scale Insulin Human Lispro (Humalog) 0 units SC .BEDTIME SLIDING SC PRN PRN Reason: Bedtime Correctional Scale Ketorolac Tromethamine (Toradol) 10 mg PO Q8HR PRN PRN Reason: pain Stop: 08/08/18 14:01 Lorazepam (Ativan) 2 mg SLOW IVP Q15MIN PRN PRN Reason: Seizures Nitroglycerin (Nitrostat) 0.4 mg SL Q5MIN PRN PRN Reason: Chest Pain IF SBP>100 Last Admin: 08/04/18 06:34 Dose: 0.4 mg Ondansetron HCl (Zofran Odt) 4 mg PO Q6H PRN PRN Reason: Nausea/Vomiting Last Admin: 08/03/18 04:22 Dose: 4 mg Ondansetron HCl (Zofran) 4 mg IVP Q6H PRN PRN Reason: Nausea/Vomiting Last Admin: 08/01/18 10:45 Dose: 4 mg Phenazopyridine HCl (Azo Standard) 97.5 mg PO PC [facility] Last Admin: 08/04/18 09:49 Dose: 97.5 mg Phenytoin Sodium (Dilantin Er) 200 mg PO BID [facility] Last Admin: 08/04/18 09:50 Dose: 200 mg Quetiapine Fumarate (Seroquel) 700 mg PO HS [facility] Last Admin: 08/03/18 21:53 Dose: 700 mg Sodium Chloride (Flush - Normal Saline) 10 ml IVF PRN PRN PRN Reason: Saline Flush Last Admin: 08/03/18 13:04 Dose: 10 ml Tamsulosin HCl (Flomax) 0.4 mg PO HS [facility] Last Admin: 08/03/18 21:51 Dose: 0.4 mg Tramadol HCl (Ultram) 50 mg PO Q6H PRN PRN Reason: pain 4-6 Last Admin: 08/04/18 09:51 Dose: 50 mg
[2018-08-04 16:48] VITALS: BP 124/75; TEMP 98.4
--- NOTE | 2018-08-04 17:36 | CON ---
DATE OF SERVICE: 08/04/2018 INITIAL REASON FOR CONSULTATION: 1. Left epididymectomy status post left epididymis excision for chronic epididymitis without improve ment. 2. Left testicular pain following a left epididymectomy. HISTORY OF PRESENT ILLNESS: Mr. Yunier Batres is a 37-year-old white male, patient of kassy Iqbal o underwent a left epididymectomy. The patient yesterday had complaints of scrotal pain and was cons ulted to evaluate and assess the patient with regard to that. The patient at the time of my evaluati on also appeared to be having some type of cardiac or pseudoseizure issue. The patient has recovered from that and is no longer having chest pain and his scrotal discomfort improved after changing him out of an athletic supporter into more loose fitting underwear. The patient is currently dressed in an adult pullup-type diaper, which is working well for him and is not causing scrotal pain. See my original consultation evaluation assessment for this patient from yesterday for additional det ails. PHYSICAL EXAMINATION: VITAL SIGNS: The patient has been afebrile with current temperature of 98 degrees Fahrenheit. Pulse is 89, respirations 14, O2 saturations 91% on 2 liters per minute by nasal cannula. GENERAL: The patient is evaluated sitting upright. HEENT: Extraocular movements are intact. Sclerae are anicteric. Oropharynx is clear. NECK: Supple. LUNGS: Clear to auscultation bilaterally. CARDIAC: Regular rate and rhythm without murmur, rub or gallop. ABDOMEN: Soft, obese, and nontender. There are no complaints of flank or back pain today. GENITOURINARY: The patient's phallus is without lesion. Urethral meatus appears adequate. Left hem iscrotum has a transverse surgical incisional scar which is suture closed. In the left lower aspect of the scrotum, there is a Calvert-type drain which is secured by suture. There is no significant dr burdick observed today. RECTAL: Digital rectal examination was not repeated today. EXTREMITIES: Appear within normal limits with no undue edema. MICROBIOLOGY REVIEW: The patient has not had any positive cultures turnup so for. Pathology report from his recent epididymectomy remains pending. ASSESSMENT AND PLAN: 1. Cardiac issues. The patient is no longer having chest pain or shortness of breath. 2. Seizure or pseudoseizure by the patient's self report. He reports a seizure on overnight from to 08/04/2018 does not appear to be having any abnormal neurologic signs today. This possib ly could undergo evaluation as an outpatient. 3. Genitourinary. The patient's scrotum appears benign. We will be seeing the patient in an outpat ient setting for an epididymectomy. From a Genitourinary standpoint, the patient will be suitable fo r discharge to home. The patient should continue to follow up with Dr. Hernan Terry for drain remov al as previously scheduled. Over 35 minutes consultation and assessment, time spent in evaluation and treatment of this patient t lyndsay.
[2018-08-04] MEDS ORDERED: levETIRAcetam 500 MG TAB PO SCH (21:00)
--- NOTE | 2018-08-05 15:36 | DIS ---
DATE OF ADMISSION: 07/27/2018. Patient left against medical advice on 08/05/2018. PRIMARY CARE PROVIDER: Dr. Arely Wall. DISCHARGE DIAGNOSES: 1. Epididymitis. 2. Chest pain. 3. Seizure versus pseudoseizure. CONSULTATIONS DURING THIS HOSPITALIZATION: Urology, Dr. Hernan Terry; Cardiology, Dr. Cabrera. HOSPITAL COURSE: Mr. Batres is a pleasant 37-year-old gentleman who was admitted to [facility] on 07/26/2018 for left-sided epididymitis. Please refer to Aguila's history and phys ical note dated 07/26/2018 for further details. He was seen by Urology Service. He was treated with intravenous antibiotics. Testicular ultrasound on 07/30/2018 showed a mild hyperemia of the epididy mis bilaterally with epididymal microlithiasis, likely sequela of chronic epididymitis, which may be due to atypical infectious process. On 08/01, plan was for the patient to undergo left epididymectom y. While being assessed in the preop area, patient developed chest pain. Surgery was canceled. He was transferred to telemetry floor. He had normal troponins. VQ scan was low probability for pulmon sara embolism. On 08/02, he underwent left epididymectomy and orchiopexy. The pathology reports did not show any ev idence of malignancy. He had focal duct dilatation. On the night of 08/03, he had a seizure. He could feel the onset of the seizure. It is unclear whet her this was a seizure or pseudoseizure. His phenytoin level was therapeutic. He was started on Kep pra. EEG was ordered because of the seizure. Neurology consult was also pending. On the evening of 08/04 , Mr. Batres decided not to stay in the hospital. He left the hospital against medical advice. He was on ceftriaxone and doxycycline while he was inpatient. He will likely benefit from continuing doxycycline as outpatient. He will also likely benefit from having his seizure disorder reassessed through his neurologist. Many thanks for allowing me to participate in Mr. Batres's care. Please feel free to contact me with any questions or concerns.
--- NOTE | 2018-08-08 06:04 | EKG ---
Test Reason : CP Blood Pressure : / mmHG Vent. Rate : 096 BPM Atrial Rate : 096 BPM P-R Int : 154 ms QRS Dur : 084 ms QT Int : 392 ms P-R-T Axes : 059 092 058 degrees QTc Int : 495 ms Normal sinus rhythm Rightward axis Prolonged QT Abnormal ECG When compared with ECG of 01-AUG-2018 13:22, No significant change was found Confirmed by ROSETTA WAGNER ([id number]) on 08/08/2018 6:03:57 AM Referred By: Confirmed By:ROSETTA WAGNER
== END 2018-08-04 20:13 | disposition left against medical advice (07) | DRG 712 ==
LOC: SCSER 07:10 → 2SW 11:00 → SCSER 11:00 → 2SW 12:43 → OBSVTOIN 07-27 12:03 → 2SE 07-29 18:40 → T4-A 07-30 20:49 → 2NO 08-01 13:59
PROVIDERS: ADMIT Internal Medicine; ATTEND Internal Medicine
PROC: 0VTK0ZZ Resection of Left Epididymis, Open Approach (ICD-10-PCS; principal; 2018-08-02)
DX: N45.1 Epididymitis (principal); R07.9 Chest pain, unspecified; R56.9 Unspecified convulsions; I25.10 Atherosclerotic heart disease of native coronary artery without angina pectoris; Z95.1 Presence of aortocoronary bypass graft; E11.9 Type 2 diabetes mellitus without complications; F17.210 Nicotine dependence, cigarettes, uncomplicated; E78.5 Hyperlipidemia, unspecified; F41.8 Other specified anxiety disorders; E66.9 Obesity, unspecified; Z68.35 Body mass index [BMI] 35.0-35.9, adult; F31.9 Bipolar disorder, unspecified; I48.91 Unspecified atrial fibrillation; Z88.0 Allergy status to penicillin; Z88.2 Allergy status to sulfonamides
CPT/HCPCS: 36415; 36416; 70450; 71046; 76870; 78582; 80048; 80053; 80185; 81001; 82550; 82553; 83690; 84146; 84484; 85007; 85025; 85027; 87491; 87591; 88304; 93005; 93010; 93976; 96374; 96375; A9540; A9558; J0696; J1170; J1200; J1885; J1953; J2001; J2250; J2270; J2405; J2550; J2704; J2930; J3010; J3370; J3490; J7050; Q0162; S0020; S0028

== ENCOUNTER 2018-08-06 15:32 | Emergency (ER) | payer SELFPAY | END 2018-08-06 15:55 | disposition home or self-care (01) | LOC: SCSER 15:32 | DX: G89.18 Other acute postprocedural pain (principal); N50.812 Left testicular pain; F41.9 Anxiety disorder, unspecified; I10 Essential (primary) hypertension; F17.210 Nicotine dependence, cigarettes, uncomplicated; E11.9 Type 2 diabetes mellitus without complications; G40.909 Epilepsy, unspecified, not intractable, without status epilepticus; Z71.6 Tobacco abuse counseling | CPT/HCPCS: 99406 ==

== ENCOUNTER 2018-10-21 06:59 | Emergency (ER) | payer SELFPAY ==
[2018-10-21] MEDS ORDERED: Mag-Al Plus 1200 MG/1200 MG/120 MG/30 ML UDCUP ONE (07:13)
[2018-10-21] MEDS ORDERED: Lidocaine Viscous Sol 2% 15 ml UD Cup ONE (07:13)
[2018-10-21] MEDS ORDERED: Ondansetron PF 4 MG/2 ML Vial ONE (07:28)
[2018-10-21] MEDS ORDERED: Pantoprazole 40 MG VIAL ONE (07:28)
[2018-10-21 07:29] LABS: #Basophils 0.2 thou/uL (0.0-0.2); #Eosinphils 0.8 thou/uL (0.0-0.7); #Lymphocytes 4.1 thou/uL (1.20-3.40); #Monocytes 0.8 thou/uL (0.11-0.59); %Lymphocytes 41.1 % (21.0-51.0); %Monocytes 8.2 % (0.0-10.0); %Neutrophils 40.7 % (42.0-75.0); Mean Corpuscular HGB CONC 32.4 g/dL (32.0-36.0); Mean Corpuscular Hemoglobin 28.9 pg (27.0-31.0); Mean Corpuscular Volume 89.3 fL (78.0-98.0); Mean Platelet Volume 8.9 fL (7.4-10.4); Platelet Count 245 thou/uL (130-400); RBC Distribution Width 13.6 % (11.5-14.5); Red Blood Cell (RBC) Count 4.85 mill/uL (4.70-6.10); White Blood Cell (WBC) Count 9.9 thou/uL (4.8-10.8)
[2018-10-21 07:44] LABS: Bilirubin Negative (Negative); Blood, Urine Negative (Negative); Clarity Clear (Clear); Glucose, Urine (Dipstick) Negative (Negative); Leukocyte Negative (Negative); Nitrite Negative (Negative); Protein, Urine (Dipstick) Negative (Neg-Trace); Specific Gravity, Urine 1.032 (1.002-1.036); Urobilinogen 0.2 mg/dL (0.2-1.0); pH, Urine 5.5 (5.0-9.0)
[2018-10-21 07:46] LABS: ALT (SGPT) 16 U/L (8-55); AST (SGOT) 15 U/L (5-34); Albumin 3.9 g/dL (3.5-5.0); Alkaline Phosphatase 76 U/L (40-150); Anion Gap 15 mmol/L (10-20); BUN (Urea Nitrogen) 16 mg/dL (8.9-20.6); Bilirubin, Total 0.2 mg/dL (0.2-1.2); CK (CPK) 68 U/L (30-200); Calc. Creatinine Clearance 0 mL/min (70-130); Calcium 8.9 mg/dL (7.8-10.44); Carbon Dioxide 23 mmol/L (22-29); Chloride 107 mmol/L (98-107); Estimated GFR-MDRD 77; Glucose 108 mg/dL (70-105); Lipase 35 U/L (8-78); Potassium 3.8 mmol/L (3.5-5.1); Protein, Total 6.9 g/dL (6.0-8.3); Sodium 141 mmol/L (136-145)
[2018-10-21 07:55] LABS: Amphetamine Not Detected (NotDetected); Barbiturates Screen Not Detected (NotDetected); Benzodiazepine Screen Detected (NotDetected); Cocaine Metabolite Screen Not Detected (NotDetected); Medtox Control Line Valid? VALID (VALID); Methadone Not Detected (NotDetected); Methamphetamine Not Detected (NotDetected); Opiate Screen Detected (NotDetected); Oxycodone Screen Not Detected (NotDetected); Phencyclidine (PCP) Not Detected (NotDetected); THC/Cannabinoid Screen Not Detected (NotDetected); Tricyclic Screen Detected (NotDetected)
--- NOTE | 2018-10-21 08:42 | CT ---
CT ABDOMEN AND PELVIS WITHOUT CONTRAST: Multiple axial tomograms were obtained through the abdomen and pelvis without IV enhancement. INDICATION: Abdominal pain with nausea, vomiting, and diarrhea. FINDINGS: Lung bases clear. Liver, spleen, and pancreas unremarkable. Adrenal glands and kidneys unremarkable. Small bowel loops normal caliber. Appendix appears normal. Scattered stool and gas throughout the colon. No evidence of colitis or di verticulitis. Aorta normal caliber. No adenopathy apparent. IMPRESSION: No acute process identified. POS: [facility]
== END 2018-10-21 07:56 | disposition home or self-care (01) ==
LOC: SCSER 06:59
DX: R10.9 Unspecified abdominal pain (principal); I25.2 Old myocardial infarction; E11.9 Type 2 diabetes mellitus without complications; I10 Essential (primary) hypertension; G40.909 Epilepsy, unspecified, not intractable, without status epilepticus; F41.9 Anxiety disorder, unspecified; F17.210 Nicotine dependence, cigarettes, uncomplicated; Z79.82 Long term (current) use of aspirin
CPT/HCPCS: 74176; 80053; 80306; 81003; 82550; 83605; 83690; 84484; 85025; 93005; 96374; 96375; C9113; J2405

== ENCOUNTER 2018-10-25 21:55 | Emergency (ER) | payer SELFPAY | END 2018-10-25 22:36 | disposition left against medical advice (07) | LOC: ERS 21:55 | DX: Z53.21 Procedure and treatment not carried out due to patient leaving prior to being seen by health care provider (principal) ==

== ENCOUNTER 2018-10-26 01:46 | Emergency (ER) | payer SELFPAY ==
[2018-10-26] MEDS ORDERED: Nitroglycerin 0.4 MG TAB (25 Tab Bottle) ONE (02:04)
[2018-10-26 02:19] LABS: #Basophils 0.2 thou/uL (0.0-0.2); #Lymphocytes 4.4 thou/uL (1.20-3.40); #Monocytes 0.9 thou/uL (0.11-0.59); #Neutrophils 6.7 thou/uL (1.40-6.50); %Basophils 1.5 % (0.0-1.0); %Eosinophils 7.5 % (0.0-10.0); %Lymphocytes 33.6 % (21.0-51.0); %Monocytes 6.7 % (0.0-10.0); %Neutrophils 50.7 % (42.0-75.0); Hemoglobin 14.5 g/dL (14.0-18.0); Mean Corpuscular HGB CONC 33.5 g/dL (32.0-36.0); Mean Corpuscular Volume 89.5 fL (78.0-98.0); Mean Platelet Volume 8.6 fL (7.4-10.4); Platelet Count 260 thou/uL (130-400); RBC Distribution Width 14.1 % (11.5-14.5); Red Blood Cell (RBC) Count 4.82 mill/uL (4.70-6.10); White Blood Cell (WBC) Count 13.2 thou/uL (4.8-10.8)
[2018-10-26 02:30] LABS: ALT (SGPT) 20 U/L (8-55); AST (SGOT) 16 U/L (5-34); Albumin 4.1 g/dL (3.5-5.0); Alkaline Phosphatase 75 U/L (40-150); Anion Gap 15 mmol/L (10-20); BUN (Urea Nitrogen) 12 mg/dL (8.9-20.6); Bilirubin, Total 0.2 mg/dL (0.2-1.2); Calc. Creatinine Clearance 0 mL/min (70-130); Calcium 9.1 mg/dL (7.8-10.44); Carbon Dioxide 22 mmol/L (22-29); Chloride 107 mmol/L (98-107); Estimated GFR-MDRD 86; Globulin 3.2 g/dL (2.4-3.5); Glucose 125 mg/dL (70-105); Potassium 3.8 mmol/L (3.5-5.1); Protein, Total 7.3 g/dL (6.0-8.3); Sodium 140 mmol/L (136-145)
[2018-10-26] MEDS ORDERED: Acetaminophen 650 MG/20.3 ML UDCUP ONE (02:46)
[2018-10-26] MEDS ORDERED: Colchicine 0.6 MG TAB ONE (02:47)
--- NOTE | 2018-10-26 08:28 | RAD ---
PORTABLE UPRIGHT FRONTAL CHEST RADIOGRAPH: DATE: 10/26/2018. COMPARISON: 06/22/2018. HISTORY: Chest pain. FINDINGS: Stable mild diffuse increased linear interstitial density. Midline sternotomy wires are present. He art and mediastinal contours are stable. There is no pneumothorax, pleural fluid, focal consolidatio n, or alveolar edema. IMPRESSION: Chronic findings as detailed above. No acute findings are seen. POS: [facility]
== END 2018-10-26 03:37 | disposition left against medical advice (07) ==
LOC: SCSER 01:46
DX: R07.9 Chest pain, unspecified (principal); I25.2 Old myocardial infarction; E11.9 Type 2 diabetes mellitus without complications; I10 Essential (primary) hypertension; G40.909 Epilepsy, unspecified, not intractable, without status epilepticus; F41.9 Anxiety disorder, unspecified; F31.9 Bipolar disorder, unspecified; F17.210 Nicotine dependence, cigarettes, uncomplicated
CPT/HCPCS: 71045; 80053; 83880; 84484; 85025; 93005

== ENCOUNTER 2018-10-27 00:08 | Emergency (ER) | payer SELFPAY ==
[2018-10-27] MEDS ORDERED: Ketorolac Tromethamine 30 MG/ML VIAL ONE (00:26)
[2018-10-27] MEDS ORDERED: methylPREDNISolone Sod Succ/PF 125 MG/2 ML VIAL ONE (00:36)
[2018-10-27] MEDS ORDERED: diphenhydrAMINE 50 MG/ML VIAL ONE (00:36)
[2018-10-27] MEDS ORDERED: Famotidine/PF 20 mg/2ml Vial ONE (00:36)
[2018-10-27 00:45] LABS: #Basophils 0.2 thou/uL (0.0-0.2); #Monocytes 0.6 thou/uL (0.11-0.59); #Neutrophils 5.6 thou/uL (1.40-6.50); %Basophils 1.5 % (0.0-1.0); %Eosinophils 8.8 % (0.0-10.0); %Monocytes 5.7 % (0.0-10.0); %Neutrophils 49.1 % (42.0-75.0); Hemoglobin 14.3 g/dL (14.0-18.0); Mean Corpuscular HGB CONC 33.2 g/dL (32.0-36.0); Mean Corpuscular Hemoglobin 29.5 pg (27.0-31.0); Mean Corpuscular Volume 88.9 fL (78.0-98.0); Mean Platelet Volume 7.4 fL (7.4-10.4); Platelet Count 268 thou/uL (130-400); RBC Distribution Width 13.8 % (11.5-14.5); Red Blood Cell (RBC) Count 4.85 mill/uL (4.70-6.10); White Blood Cell (WBC) Count 11.3 thou/uL (4.8-10.8)
[2018-10-27 00:47] LABS: Prothrombin Time 13.4 SEC (12.0-14.7)
[2018-10-27 00:48] LABS: PTT 30.9 SEC (22.9-36.1)
[2018-10-27] MEDS ORDERED: Acetaminophen 500 MG TAB ONE (00:54)
[2018-10-27 01:32] LABS: Anion Gap 16 mmol/L (10-20)
[2018-10-27 01:41] LABS: ALT (SGPT) 21 U/L (8-55); AST (SGOT) 19 U/L (5-34); Albumin 4.1 g/dL (3.5-5.0); Alkaline Phosphatase 72 U/L (40-150); BUN (Urea Nitrogen) 10 mg/dL (8.9-20.6); Bilirubin, Total 0.4 mg/dL (0.2-1.2); Calc. Creatinine Clearance 0 mL/min (70-130); Calcium 9.4 mg/dL (7.8-10.44); Carbon Dioxide 21 mmol/L (22-29); Chloride 107 mmol/L (98-107); Estimated GFR-MDRD 90; Globulin 3.2 g/dL (2.4-3.5); Glucose 98 mg/dL (70-105); Potassium 3.7 mmol/L (3.5-5.1); Protein, Total 7.3 g/dL (6.0-8.3); Sodium 140 mmol/L (136-145)
[2018-10-27 02:09] LABS: Bilirubin Negative (Negative); Blood, Urine Negative (Negative); Clarity Clear (Clear); Glucose, Urine (Dipstick) Negative (Negative); Leukocyte Negative (Negative); Nitrite Negative (Negative); Protein, Urine (Dipstick) Negative (Neg-Trace); Urobilinogen 0.2 mg/dL (0.2-1.0)
[2018-10-27 02:10] LABS: Specific Gravity, Urine 1.006 (1.002-1.036)
--- NOTE | 2018-10-27 16:38 | ULT ---
PRELIMINARY REPORT/[facility]/EMERGENTY AFTER-HOURS PROCEDURE US Scrotum EXAM DATE/TIME: 10/27/2018 1:21 AM CLINICAL HISTORY: 37 years old, male; Pain; Other: RT testicular pain TECHNIQUE: Real-time ultrasound of the scrotum and contents with color Doppler and image documentation. COMPARISON: No relevant prior studies available. FINDINGS: The testicles are within normal limits and symmetrical in size. Right: No visible intratesticular mass. Duplex Doppler evaluation, with color flow and spectral waveform analysis, demonstrates intratesticul ar arterial and venous blood flow. Small cysts in the right epididymis, the largest measuring 5 mm. The right epididymis is otherwise unremarkable in size and appearance. There is no significant right scrotal fluid. Possibly a small right varicocele. Left: No visible intratesticular mass. Duplex Doppler evaluation, with color flow and spectral waveform analysis, demonstrates intratesticul ar arterial and venous blood flow. The left epididymis is normal in size and appearance. There is no significant left scrotal fluid. IMPRESSION: 1. No evidence for torsion by Doppler ultrasound. 2. No findings to suggest epididymitis. 3. Other details/findings discussed above. Thank you for allowing us to participate in the care of your patient. Dictated and Authenticated by: Fortunato Brian MD 10/27/2018 2:01 AM Central Time ([place] & [place]) FINAL REPORT TESTICULAR ULTRASOUND: Testicles have an unremarkable sonographic appearance. Color Doppler with spectral analysis demonstr ates blood flow to both testicles. I am in agreement with the preliminary report. POS: [facility]
== END 2018-10-27 02:15 | disposition home or self-care (01) ==
LOC: SCSER 00:08
DX: N50.3 Cyst of epididymis (principal); I25.2 Old myocardial infarction; E11.9 Type 2 diabetes mellitus without complications; I10 Essential (primary) hypertension; G40.909 Epilepsy, unspecified, not intractable, without status epilepticus; K58.9 Irritable bowel syndrome, unspecified; F41.9 Anxiety disorder, unspecified; F31.9 Bipolar disorder, unspecified; F17.210 Nicotine dependence, cigarettes, uncomplicated
CPT/HCPCS: 76870; 80053; 81003; 85025; 85610; 85730; 87086; 93976; 96361; 96374; J1200; J1885; J2930; S0028

== ENCOUNTER 2018-10-31 23:14 | Emergency (ER) | payer SELFPAY ==
[2018-10-31 23:43] LABS: Bilirubin Negative (Negative); Blood, Urine Negative (Negative); Clarity Slightly Cloudy (Clear); Glucose, Urine (Dipstick) Negative (Negative); Leukocyte Negative (Negative); Nitrite Negative (Negative); Protein, Urine (Dipstick) Negative (Neg-Trace); Specific Gravity, Urine 1.025 (1.005-1.030); Urobilinogen 0.2 mg/dL (0.2-1.0); pH, Urine 5.5 (5.0-9.0)
== END 2018-10-31 23:57 | disposition home or self-care (01) ==
LOC: SCSER 23:14
DX: N50.82 Scrotal pain (principal); I25.2 Old myocardial infarction; E11.9 Type 2 diabetes mellitus without complications; I10 Essential (primary) hypertension; G40.909 Epilepsy, unspecified, not intractable, without status epilepticus; F31.9 Bipolar disorder, unspecified; F41.9 Anxiety disorder, unspecified; F17.210 Nicotine dependence, cigarettes, uncomplicated
CPT/HCPCS: 81003; 99284

== ENCOUNTER 2018-11-12 01:02 | Emergency (ER) | payer SELFPAY ==
[2018-11-12] MEDS ORDERED: Ketorolac Tromethamine 30 MG/ML VIAL ONE (01:38)
--- NOTE | 2018-11-12 08:14 | RAD ---
CHEST 2 VIEWS: Date: 11/12/18 HISTORY: Chest pain. COMPARISON: 08/01/18. FINDINGS: Cardiac silhouette is magnified by projection. Pulmonary vasculature upper limits of normal. Mediasti num is midline with postoperative changes. No confluent air space consolidation, pneumothorax, or ple ural fluid. IMPRESSION: No active cardiopulmonary abnormalities are demonstrated. POS: [facility]
== END 2018-11-12 02:15 | disposition home or self-care (01) ==
LOC: SCSER 01:02
DX: R07.89 Other chest pain (principal); I25.2 Old myocardial infarction; E11.9 Type 2 diabetes mellitus without complications; I10 Essential (primary) hypertension; G40.909 Epilepsy, unspecified, not intractable, without status epilepticus; F41.9 Anxiety disorder, unspecified; F31.9 Bipolar disorder, unspecified; F17.210 Nicotine dependence, cigarettes, uncomplicated
CPT/HCPCS: 71046; 93005; 96372; J1885

== ENCOUNTER 2018-12-22 03:30 | Emergency (ER) | payer SELFPAY ==
[2018-12-22] MEDS ORDERED: Albuterol Sulfate 2.5 mg/0.5 ml Neb ONE (04:04)
[2018-12-22] MEDS ORDERED: Acetaminophen 500 MG TAB ONE (04:32)
--- NOTE | 2018-12-22 08:23 | RAD ---
TWO VIEWS OF THE CHEST: COMPARISON: 11/12/2018. HISTORY: Cough, fever, and shortness of breath. FINDINGS: Two views of the chest show a normal-size cardiomediastinal silhouette. The patient is status post s ternotomy. There is no evidence of consolidation, mass, or pleural effusion. IMPRESSION: No evidence of acute cardiopulmonary disease. POS: [facility]
== END 2018-12-22 05:17 | disposition home or self-care (01) ==
LOC: SCSER 03:30
DX: J45.909 Unspecified asthma, uncomplicated (principal); J06.9 Acute upper respiratory infection, unspecified; Z71.6 Tobacco abuse counseling; I25.2 Old myocardial infarction; E11.9 Type 2 diabetes mellitus without complications; I10 Essential (primary) hypertension; G40.909 Epilepsy, unspecified, not intractable, without status epilepticus; F41.9 Anxiety disorder, unspecified; F32.9 Major depressive disorder, single episode, unspecified; F17.210 Nicotine dependence, cigarettes, uncomplicated; Z79.82 Long term (current) use of aspirin; Z79.899 Other long term (current) drug therapy
CPT/HCPCS: 71046; 87804; 93005; 94640; 94664; 99406; J7611; J7620

== ENCOUNTER 2019-01-05 07:12 | Emergency (ER) | payer SELFPAY ==
[2019-01-05] MEDS ORDERED: Ketorolac Tromethamine 60 MG/2 ML VIAL ONE (07:26)
[2019-01-05] MEDS ORDERED: methylPREDNISolone Sod Succ/PF 125 MG/2 ML VIAL ONE (07:39)
[2019-01-05] MEDS ORDERED: Famotidine/PF 20 mg/2ml Vial ONE (07:39)
[2019-01-05] MEDS ORDERED: diphenhydrAMINE 50 MG/ML VIAL ONE (07:39)
[2019-01-05] MEDS ORDERED: Water For Inject, Bacteriostat 30 ML ONE (07:39)
[2019-01-05 07:55] LABS: #Basophils 0.2 thou/uL (0.0-0.2); #Eosinphils 0.4 thou/uL (0.0-0.7); #Lymphocytes 4.2 thou/uL (1.20-3.40); #Monocytes 0.7 thou/uL (0.11-0.59); #Neutrophils 9.9 thou/uL (1.40-6.50); %Basophils 1.3 % (0.0-1.0); %Eosinophils 2.6 % (0.0-10.0); %Lymphocytes 27.4 % (21.0-51.0); %Monocytes 4.6 % (0.0-10.0); Mean Corpuscular HGB CONC 33.3 g/dL (32.0-36.0); Mean Corpuscular Hemoglobin 30.4 pg (27.0-31.0); Mean Corpuscular Volume 91.2 fL (78.0-98.0); Mean Platelet Volume 6.7 fL (7.4-10.4); Platelet Count 257 thou/uL (130-400); RBC Distribution Width 12.9 % (11.5-14.5); Red Blood Cell (RBC) Count 4.59 mill/uL (4.70-6.10); White Blood Cell (WBC) Count 15.4 thou/uL (4.8-10.8)
[2019-01-05 08:01] LABS: ALT (SGPT) 24 U/L (8-55); AST (SGOT) 19 U/L (5-34); Albumin 4.2 g/dL (3.5-5.0); Alkaline Phosphatase 66 U/L (40-150); Anion Gap 16 mmol/L (10-20); BUN (Urea Nitrogen) 12 mg/dL (8.9-20.6); Bilirubin, Total 0.2 mg/dL (0.2-1.2); Calc. Creatinine Clearance 0 mL/min (70-130); Calcium 9.2 mg/dL (7.8-10.44); Carbon Dioxide 22 mmol/L (22-29); Chloride 105 mmol/L (98-107); Estimated GFR-MDRD 72; Glucose 150 mg/dL (70-105); Protein, Total 7.2 g/dL (6.0-8.3); Sodium 140 mmol/L (136-145)
[2019-01-05] MEDS ORDERED: Morphine 4 MG/ML VIAL ONE ×2 (08:07→08:54)
[2019-01-05 08:20] LABS: Troponin I 0.014 ng/mL (< 0.028)
[2019-01-05] MEDS ORDERED: Aspirin Chewable 81 MG TAB ONE (08:21)
[2019-01-05] MEDS ORDERED: Nitroglycerin 2% Ointment 1 INCH/1 GM Packet ONE (08:21)
[2019-01-05] MEDS ORDERED: Potassium Chloride 20 MEQ TAB ONE (08:34)
[2019-01-05] MEDS ORDERED: Nitroglycerin 0.4 MG TAB (25 Tab Bottle) ONE (09:32)
[2019-01-05 09:43] LABS: Bilirubin Negative (Negative); Blood, Urine Negative (Negative); Clarity Clear (Clear); Glucose, Urine (Dipstick) Negative (Negative); Leukocyte Negative (Negative); Nitrite Negative (Negative); Protein, Urine (Dipstick) Negative (Neg-Trace); Urobilinogen 0.2 mg/dL (0.2-1.0)
--- NOTE | 2019-01-05 09:59 | CT ---
CT ABDOMEN AND PELVIS WITH IV CONTRAST: 01/05/2019 PROVIDED CLINICAL HISTORY: Groin pain. COMPARISON: 10/21/2018 FINDINGS: The visualized lung bases are free of significant opacity. Fatty infiltration of the liver is demonstrated. The solid abdominal organs demonstrate no evidence for an acute abnormality. There is no bowel dilatation, inflammatory fat stranding, free fluid, or free air apparent. The appe ndix appears normal. Vascular calcifications are noted. The osseous structures demonstrate no concerning osteoblastic or osteolytic lesions. IMPRESSION: No evidence for an acute process. POS: [facility]
[2019-01-05 10:56] LABS: Troponin I 0.014 ng/mL (< 0.028)
--- NOTE | 2019-01-05 13:01 | RAD ---
CHEST 1 VIEW: COMPARISON: 10/26/2018. HISTORY: Pain. FINDINGS: Sternotomy wires are noted. Normal cardiac silhouette. The pulmonary vessels and hilum are normal. Costophrenic angles are clear. Lungs are hyperinflated. No mass. No consolidation. No pneumothor ax or osseous abnormalities. IMPRESSION: No acute cardiopulmonary process. POS: [facility]
--- NOTE | 2019-01-05 13:01 | ULT ---
TESTICULAR ULTRASOUND: HISTORY: Abdominal pain. COMPARISON: None. TECHNIQUE: Shi scale, color flow, Doppler imaging, and spectral waveform analysis performed in the left and rig ht testicles. FINDINGS: RIGHT HEMISCROTUM: The right testicle has a homogeneous echotexture. No intratesticular mass. The right testicle measu res 1.7 x 2.9 x 4.0 cm. Right epididymis has a normal appearance, measuring 1.2 x 0.9 cm. There is an epididymal cyst measuring 0.6 cm. No fluid. LEFT HEMISCROTUM: The left testicle has a homogeneous echotexture. No intratesticular mass. The left testicle measure s 4.1 x 2.0 x 3.2 cm. Left epididymis is not seen. No significant fluid in the left hemiscrotum. During intermittent imaging, the left testicle does appear to move into the left inguinal region upon Valsalva. Upward movement of testicle rather than downward herniation of intraabdominal contents is not typical for a hernia. Nevertheless, clinical correlation is recommended. TESTICULAR DOPPLER: Vascular flow to both testicles is symmetric. IMPRESSION: 1. Symmetric testicular Doppler. No evidence of masses. 2. Transient movement of the left testicle into the inguinal region upon Valsalva. This is atypical for a hernia given that the testicle is moving in a cephalad direction rather than intraabdominal co ntents moving into the inguinal region. Nevertheless, clinical correlation for left inguinal hernia is recommended. POS: [facility]
== END 2019-01-05 11:38 | disposition home or self-care (01) ==
LOC: SCSER 07:12
DX: R07.9 Chest pain, unspecified (principal); N50.812 Left testicular pain; I25.2 Old myocardial infarction; I10 Essential (primary) hypertension; E11.9 Type 2 diabetes mellitus without complications; G40.909 Epilepsy, unspecified, not intractable, without status epilepticus; F31.9 Bipolar disorder, unspecified; F41.9 Anxiety disorder, unspecified; F17.210 Nicotine dependence, cigarettes, uncomplicated
CPT/HCPCS: 36415; 71045; 74177; 76870; 80053; 81003; 84484; 85025; 93005; 93976; 96372; 96374; 96375; 96376; J1200; J1885; J2270; J2930; S0028

== ENCOUNTER 2019-01-09 20:48 | Emergency (ER) | payer SELFPAY ==
[2019-01-09] MEDS ORDERED: Acetaminophen 500 MG TAB ONE (21:12)
[2019-01-09 21:26] LABS: #Basophils 0.2 thou/uL (0.0-0.2); #Eosinphils 0.5 thou/uL (0.0-0.7); #Lymphocytes 3.7 thou/uL (1.20-3.40); #Monocytes 0.8 thou/uL (0.11-0.59); #Neutrophils 7.9 thou/uL (1.40-6.50); %Basophils 1.2 % (0.0-1.0); %Eosinophils 3.7 % (0.0-10.0); %Lymphocytes 28.6 % (21.0-51.0); %Monocytes 5.9 % (0.0-10.0); %Neutrophils 60.6 % (42.0-75.0); Hemoglobin 13.7 g/dL (14.0-18.0); Mean Corpuscular HGB CONC 33.7 g/dL (32.0-36.0); Mean Corpuscular Hemoglobin 29.6 pg (27.0-31.0); Mean Corpuscular Volume 87.7 fL (78.0-98.0); Mean Platelet Volume 6.9 fL (7.4-10.4); Platelet Count 260 thou/uL (130-400); RBC Distribution Width 12.5 % (11.5-14.5); Red Blood Cell (RBC) Count 4.62 mill/uL (4.70-6.10)
--- NOTE | 2019-01-09 21:28 | RAD ---
CHEST TWO VIEWS: 01/09/19 HISTORY: Cough. COMPARISON: 01/05/19. FINDINGS: The cardiac silhouette and pulmonary vasculature are unremarkable. Mediastinum is midline with posto perative changes. No confluent air space consolidation, pneumothorax, or pleural fluid are apparent. IMPRESSION: No active cardiopulmonary abnormalities are demonstrated. POS: [facility]
[2019-01-09 21:36] LABS: ALT (SGPT) 20 U/L (8-55); AST (SGOT) 13 U/L (5-34); Albumin 4.2 g/dL (3.5-5.0); Alkaline Phosphatase 65 U/L (40-150); Anion Gap 16 mmol/L (10-20); BUN (Urea Nitrogen) 12 mg/dL (8.9-20.6); Bilirubin, Total 0.3 mg/dL (0.2-1.2); Calc. Creatinine Clearance 0 mL/min (70-130); Calcium 9.2 mg/dL (7.8-10.44); Carbon Dioxide 22 mmol/L (22-29); Chloride 104 mmol/L (98-107); Estimated GFR-MDRD Greater than 90; Globulin 3.1 g/dL (2.4-3.5); Glucose 110 mg/dL (70-105); Potassium 3.6 mmol/L (3.5-5.1); Protein, Total 7.3 g/dL (6.0-8.3); Sodium 138 mmol/L (136-145)
== END 2019-01-09 22:17 | disposition home or self-care (01) ==
LOC: SCSER 20:48
DX: J44.1 Chronic obstructive pulmonary disease with (acute) exacerbation (principal); I25.2 Old myocardial infarction; E11.9 Type 2 diabetes mellitus without complications; I10 Essential (primary) hypertension; G40.909 Epilepsy, unspecified, not intractable, without status epilepticus; F17.210 Nicotine dependence, cigarettes, uncomplicated; Z79.899 Other long term (current) drug therapy; Z79.82 Long term (current) use of aspirin
CPT/HCPCS: 36415; 71046; 80053; 83880; 84484; 85025; 93005; J7620

== ENCOUNTER 2019-01-11 14:01 | Emergency (ER) | payer SELFPAY ==
[2019-01-11 15:16] LABS: #Basophils 0.2 thou/uL (0.0-0.2); #Eosinphils 0.4 thou/uL (0.0-0.7); #Lymphocytes 4.6 thou/uL (1.20-3.40); #Monocytes 0.8 thou/uL (0.11-0.59); #Neutrophils 8.9 thou/uL (1.40-6.50); %Basophils 1.1 % (0.0-1.0); %Eosinophils 2.4 % (0.0-10.0); %Lymphocytes 30.8 % (21.0-51.0); %Monocytes 5.3 % (0.0-10.0); %Neutrophils 60.4 % (42.0-75.0); Hemoglobin 14.2 g/dL (14.0-18.0); Mean Corpuscular Hemoglobin 30.4 pg (27.0-31.0); Mean Corpuscular Volume 89.2 fL (78.0-98.0); Mean Platelet Volume 6.4 fL (7.4-10.4); Platelet Count 273 thou/uL (130-400); RBC Distribution Width 13.2 % (11.5-14.5); Red Blood Cell (RBC) Count 4.67 mill/uL (4.70-6.10); White Blood Cell (WBC) Count 14.8 thou/uL (4.8-10.8)
[2019-01-11] MEDS ORDERED: Ibuprofen 600 MG TAB ONE (15:22)
--- NOTE | 2019-01-11 15:22 | RAD ---
CHEST 2 VIEWS: Date: 01/11/19 HISTORY: Pleuritic chest pain. COMPARISON: 01/09/18 study. FINDINGS: Heart size within normal limits. There are postop sternotomy changes. The lungs are clear of any infi ltrative process. No significant bony findings. IMPRESSION: No active intrathoracic disease. POS: [facility]
[2019-01-11 15:32] LABS: ALT (SGPT) 20 U/L (8-55); AST (SGOT) 14 U/L (5-34); Albumin 4.2 g/dL (3.5-5.0); Alkaline Phosphatase 64 U/L (40-150); Anion Gap 14 mmol/L (10-20); BUN (Urea Nitrogen) 8 mg/dL (8.9-20.6); Bilirubin, Total 0.3 mg/dL (0.2-1.2); Calc. Creatinine Clearance 0 mL/min (70-130); Calcium 9.3 mg/dL (7.8-10.44); Carbon Dioxide 22 mmol/L (22-29); Chloride 108 mmol/L (98-107); Estimated GFR-MDRD Greater than 90; Globulin 3.2 g/dL (2.4-3.5); Glucose 91 mg/dL (70-105); Lipase 21 U/L (8-78); Potassium 3.7 mmol/L (3.5-5.1); Protein, Total 7.4 g/dL (6.0-8.3); Sodium 140 mmol/L (136-145)
== END 2019-01-11 17:24 | disposition home or self-care (01) ==
LOC: SCSER 14:01
DX: R07.81 Pleurodynia (principal); I25.2 Old myocardial infarction; E11.9 Type 2 diabetes mellitus without complications; I10 Essential (primary) hypertension; J44.9 Chronic obstructive pulmonary disease, unspecified; F17.210 Nicotine dependence, cigarettes, uncomplicated; Z79.899 Other long term (current) drug therapy
CPT/HCPCS: 36415; 71046; 80053; 83605; 83690; 84484; 85025; 85379; 87040; 87804; 93005

== ENCOUNTER 2019-02-07 04:46 | Emergency (ER) | payer SELFPAY ==
[2019-02-07] MEDS ORDERED: Ketorolac Tromethamine 30 MG/ML VIAL ONE (05:11)
[2019-02-07 05:24] LABS: Bilirubin Negative (Negative); Blood, Urine Negative (Negative); Glucose, Urine (Dipstick) Negative (Negative); Leukocyte Negative (Negative); Nitrite Negative (Negative); Protein, Urine (Dipstick) Negative (Neg-Trace); Urobilinogen 0.2 mg/dL (0.2-1.0); pH, Urine 5.5 (5.0-9.0)
[2019-02-07 05:25] LABS: Clarity Slightly Cloudy (Clear); Specific Gravity, Urine 1.006 (1.002-1.036)
[2019-02-07] MEDS ORDERED: traMADol HCl 50 MG TAB ONE (05:56)
--- NOTE | 2019-02-07 07:45 | ULT ---
PRELIMINARY REPORT/[facility]/EMERGENCY AFTER HOURS PROCEDURE: EXAM: US Scrotum EXAM DATE/TIME: 02/07/2019 6:06 AM CLINICAL HISTORY: 38 years old, male; Scrotum pain; Patient HX: Left teste pain x 2 hrs, difficulty with urination TECHNIQUE: Imaging protocol: Real-time ultrasound of the scrotum and contents with color Doppler and image documentation. COMPARISON: No relevant prior studies available. FINDINGS: Right Testicle: Normal. No mass. No torsion. Normal vascular flow. Left Testicle: Normal. No mass. No torsion. Normal vascular flow. Epididymides: A cyst measuring 5 mm is seen in the right epididymis. A small cyst measuring upto 2 mm is seen in the left epididymis. Increased blood flow is noted in the left epididymal head. Scrotum: Normal. IMPRESSION: 1. Increased blood flow in the left epididymis likely represents acute epididymitis. 2. Bilateral epididymal cysts. Thank you for allowing us to participate in the care of your patient. Dictated and Authenticated by: Danika Grayson MD 02/07/2019 6:36 AM Central Time ([place] & [place]) FINAL REPORT SCROTAL SONOGRAM WITH DUPLEX EVALUATION PERFORMED ON AN EMERGENCY BASIS: DATE: 02/07/19 TIME: 0613 hours HISTORY: Scrotal pain. Dysuria. FINDINGS: Agree with the preliminary report by Dr. Grayson from [facility]. No sonographic evidence of test icular mass or torsion. Increased flow to the left epididymis suggests left epididymitis. Code QA. Transcribed Date/Time: 02/07/2019 8:42 AM
[2019-02-09 19:02] LABS: Chlam.trachomatis by PCR,Urine Not Detected (NotDetected)
== END 2019-02-12 03:21 | disposition home or self-care (01) ==
LOC: SCSER 04:46
DX: N45.1 Epididymitis (principal); I25.2 Old myocardial infarction; E11.9 Type 2 diabetes mellitus without complications; G40.909 Epilepsy, unspecified, not intractable, without status epilepticus; K50.90 Crohn's disease, unspecified, without complications; I10 Essential (primary) hypertension; F41.9 Anxiety disorder, unspecified; F31.9 Bipolar disorder, unspecified; F17.210 Nicotine dependence, cigarettes, uncomplicated; Z79.899 Other long term (current) drug therapy; Z79.82 Long term (current) use of aspirin
CPT/HCPCS: 76870; 81003; 87491; 87591; 93976; 96372; J1885

== ENCOUNTER 2019-02-12 00:22 | Emergency (ER) | payer SELFPAY ==
[2019-02-12 00:45] LABS: Bilirubin Negative (Negative); Blood, Urine Negative (Negative); Clarity Cloudy (Clear); Glucose, Urine (Dipstick) Negative (Negative); Leukocyte Small (Negative); Nitrite Negative (Negative); Protein, Urine (Dipstick) Trace mg/dL (Neg-Trace); Specific Gravity, Urine 1.025 (1.005-1.030); Urobilinogen 0.2 mg/dL (0.2-1.0)
[2019-02-12 00:51] LABS: Bacteria/HPF Rare-Few HPF (None Seen); Hyaline Casts/LPF NONE SEEN LPF (0-3 Hyaline); RBC/HPF 0-3 HPF (0-3)
[2019-02-12] MEDS ORDERED: Morphine 4 MG/ML VIAL ONE (01:03)
--- NOTE | 2019-02-12 07:55 | ULT ---
PRELIMINARY REPORT/[facility]/EMERGENCY AFTER HOURS PROCEDURE: EXAM: US Scrotum and US Duplex Artery and Vein, Scrotum, Complete EXAM DATE/TIME: 02/12/2019 1:32 AM CLINICAL HISTORY: 38 years old, male; Pain and signs and symptoms; Swelling, testicles or scrotum and other: Dysuria; S crotum pain; Prior surgery; Surgery date: 6+ months; Surgery type: Lt epididymis surgery (2018); [facility] ent HX: Previous lt teste pain 01/31/19, now RT teste pain, worse pain on left, nausea, dysuria; Additional info: Previous dx: Lt epididymitis TECHNIQUE: Imaging protocol: Real-time ultrasound of the scrotum. Real-time duplex ultrasound scan of the arteri al and venous flow of the scrotum with B-mode, color Doppler flow and spectral waveform analysis. Com plete exam. COMPARISON: US Testis 02/07/2019 6:06 AM FINDINGS: Scrotal ultrasound was performed. Duplex ultrasound scan with color Doppler flow and spectral wavefor m analysis was also performed for evaluation of testicular blood flow and to rule out torsion. Right Testicle: No acute findings. No mass. Normal duplex of the testicle. No evidence of torsion. Left Testicle: Questionable mild left testicular edema. Normal duplex of the testicle. No evidence of torsion. Epididymides: Small right epididymal cysts. Scrotum: Trace right hydrocele. IMPRESSION: No testicular mass or torsion. Questionable mild left testicular edema. Thank you for allowing us to participate in the care of your patient. Dictated and Authenticated by: Nii Irby MD 02/12/2019 2:34 AM Central Time ([place] & [place]) FINAL REPORT EMERGENCY AFTER HOURS TESTICULAR ULTRASOUND: Date: 02/12/19 FINDINGS/IMPRESSION: I agree with the preliminary report provided by Steven. There is no evidence of intratesticular mass or torsion. There is heterogeneity of the left testicula r parenchyma, but this appears symmetric to the right testicle. There is no hydrocele demonstrated. T here are small epididymal head cysts involving the right epididymis. POS: [facility]
[2019-02-13 00:35] LABS: Chlam.trachomatis by PCR,Urine Not Detected (NotDetected)
== END 2019-02-12 03:21 | disposition home or self-care (01) ==
LOC: SCSER 00:22
DX: N50.811 Right testicular pain (principal); N50.812 Left testicular pain; E11.9 Type 2 diabetes mellitus without complications; I10 Essential (primary) hypertension; G40.909 Epilepsy, unspecified, not intractable, without status epilepticus; K50.90 Crohn's disease, unspecified, without complications; F41.9 Anxiety disorder, unspecified; F31.9 Bipolar disorder, unspecified; F17.210 Nicotine dependence, cigarettes, uncomplicated; I25.2 Old myocardial infarction; Z79.899 Other long term (current) drug therapy; Z79.891 Long term (current) use of opiate analgesic; Z79.82 Long term (current) use of aspirin
CPT/HCPCS: 76870; 81003; 81015; 87086; 87491; 87591; 93976; 96372; J2270

== ENCOUNTER 2019-02-12 23:14 | Emergency (ER) | payer SELFPAY | END 2019-02-13 00:37 | disposition home or self-care (01) | LOC: ERS 23:14 | DX: N45.1 Epididymitis (principal); I25.2 Old myocardial infarction; E11.9 Type 2 diabetes mellitus without complications; I10 Essential (primary) hypertension; G40.909 Epilepsy, unspecified, not intractable, without status epilepticus; F17.210 Nicotine dependence, cigarettes, uncomplicated; Z79.899 Other long term (current) drug therapy | CPT/HCPCS: 99283 ==

== ENCOUNTER 2019-02-18 02:02 | Emergency (ER) | payer SELFPAY ==
[2019-02-18] MEDS ORDERED: Ketorolac Tromethamine 30 MG/ML VIAL ONE (02:27)
[2019-02-18 03:15] LABS: Bilirubin Negative (Negative); Blood, Urine Negative (Negative); Clarity Clear (Clear); Glucose, Urine (Dipstick) Negative (Negative); Leukocyte Negative (Negative); Nitrite Negative (Negative); Protein, Urine (Dipstick) Negative (Neg-Trace); Urobilinogen 0.2 mg/dL (0.2-1.0)
--- NOTE | 2019-02-18 08:15 | ULT ---
ULTRASOUND TESTICULAR WITH DOPPLER: Date: 02/18/19 HISTORY: Pain. COMPARISON: Numerous prior examinations, most recent 02/12/19. FINDINGS: Real-time Shi scale with color Doppler and spectral analysis of the testicles performed. Right epididymal head cysts are present. Bilateral symmetric blood flow. No testicular mass. IMPRESSION: Normal appearance of both testicles. POS: [facility]
== END 2019-02-18 03:22 | disposition home or self-care (01) ==
LOC: SCSER 02:02
DX: N50.811 Right testicular pain (principal); N50.812 Left testicular pain; I25.2 Old myocardial infarction; E11.9 Type 2 diabetes mellitus without complications; I10 Essential (primary) hypertension; G40.909 Epilepsy, unspecified, not intractable, without status epilepticus; F17.210 Nicotine dependence, cigarettes, uncomplicated; Z79.899 Other long term (current) drug therapy; Z79.82 Long term (current) use of aspirin
CPT/HCPCS: 76870; 81003; 93976; 96372; J1885

== ENCOUNTER 2019-02-20 08:00 | Emergency (ER) | payer SELFPAY ==
[2019-02-20 09:03] LABS: Bilirubin Negative (Negative); Blood, Urine Negative (Negative); Clarity Hazy (Clear); Glucose, Urine (Dipstick) Negative (Negative); Leukocyte Trace (Negative); Nitrite Negative (Negative); Protein, Urine (Dipstick) Negative (Neg-Trace); Specific Gravity, Urine 1.025 (1.005-1.030); Urobilinogen 0.2 mg/dL (0.2-1.0); pH, Urine 7.5 (5.0-9.0)
[2019-02-20 09:05] LABS: Bacteria/HPF 1+ HPF (None Seen); Crystals/HPF 1+ AMORPH PHOS HPF (Negative); RBC/HPF None Seen HPF (0-3); Squamous Epithelial None Seen HPF (0-3); WBC/HPF 0-3 HPF (0-3)
--- NOTE | 2019-02-20 09:10 | CT ---
Exam: Abdomen CT without contrast Pelvic CT without contrast HISTORY: Left flank pain. Hematuria. COMPARISON: 01/27/2017, 01/05/2019 FINDINGS: Abdomen CT: Lung bases:Clear Heart size: Normal cardiac silhouette Aorta: Normal caliber. Minimal atherosclerosis. Solid organs: Limited evaluation due to lack of IV contrast. Grossly no abnormality Lymph nodes: No gastrohepatic, retrocrural or periportal lymphadenopathy Gallbladder: Unremarkable Mesentery: No mass, lymphadenopathy, free air or free fluid Kidneys: Bilaterally, no hydronephrosis, nephrolithiasis or perinephric fat stranding. Bilateral uret ers have a normal caliber. No hydroureter, periureteral fat stranding or ureterolithiasis. Alimentary canal: Limited evaluation due to lack of oral contrast. No bowel obstruction. Unremarkable ileocecal junction and colon. Normal caliber appendix. Redemonstration of a umbilical hernia containing mesenteric fat. CT PELVIS: No mass, adenopathy, free air or free fluid. Surgically absent uterus. Urinary bladder: Limited evaluation due to inadequate distention. Mucosal prominence is nonspecific. Mucosal prominence is not appreciated on the most recent previous examination and is currently felt to be due to inadequate distention. Osseous structures: No lytic or blastic lesions IMPRESSION: 1. No evidence of nephrolithiasis or obstructive uropathy 2. Normal caliber appendix.
[2019-02-20] MEDS ORDERED: Ketorolac Tromethamine 30 MG/ML VIAL ONE (09:18)
== END 2019-02-20 09:29 | disposition home or self-care (01) ==
LOC: SCSER 08:00
DX: R10.9 Unspecified abdominal pain (principal); E11.9 Type 2 diabetes mellitus without complications; I10 Essential (primary) hypertension; G40.909 Epilepsy, unspecified, not intractable, without status epilepticus; I25.2 Old myocardial infarction; K50.90 Crohn's disease, unspecified, without complications; F17.210 Nicotine dependence, cigarettes, uncomplicated; Z71.6 Tobacco abuse counseling
CPT/HCPCS: 74176; 81003; 81015; 99406; J1885

== ENCOUNTER 2019-02-26 04:40 | Emergency (ER) | payer SELFPAY ==
[2019-02-26] MEDS ORDERED: Nitroglycerin 0.4 MG TAB (25 Tab Bottle) ONE (05:05)
[2019-02-26 05:19] LABS: #Basophils 0.1 thou/uL (0.0-0.2); #Eosinphils 0.4 thou/uL (0.0-0.7); #Lymphocytes 4.1 thou/uL (1.20-3.40); #Monocytes 0.7 thou/uL (0.11-0.59); #Neutrophils 6.1 thou/uL (1.40-6.50); %Basophils 1.3 % (0.0-1.0); %Eosinophils 3.4 % (0.0-10.0); %Lymphocytes 35.8 % (21.0-51.0); %Monocytes 6.1 % (0.0-10.0); %Neutrophils 53.5 % (42.0-75.0); Hemoglobin 14.7 g/dL (14.0-18.0); Mean Corpuscular Hemoglobin 31.2 pg (27.0-31.0); Mean Corpuscular Volume 89.2 fL (78.0-98.0); Mean Platelet Volume 7.2 fL (7.4-10.4); Platelet Count 312 thou/uL (130-400); RBC Distribution Width 13.4 % (11.5-14.5); Red Blood Cell (RBC) Count 4.71 mill/uL (4.70-6.10); White Blood Cell (WBC) Count 11.4 thou/uL (4.8-10.8)
[2019-02-26 05:32] LABS: ALT (SGPT) 22 U/L (8-55); AST (SGOT) 18 U/L (5-34); Albumin 3.8 g/dL (3.5-5.0); Alkaline Phosphatase 55 U/L (40-150); Anion Gap 14 mmol/L (10-20); BUN (Urea Nitrogen) 10 mg/dL (8.9-20.6); Bilirubin, Total 0.2 mg/dL (0.2-1.2); Calc. Creatinine Clearance 0 mL/min (70-130); Carbon Dioxide 20 mmol/L (22-29); Chloride 108 mmol/L (98-107); Estimated GFR-MDRD Greater than 90; Glucose 87 mg/dL (70-105); Potassium 3.9 mmol/L (3.5-5.1); Protein, Total 6.8 g/dL (6.0-8.3); Sodium 138 mmol/L (136-145)
[2019-02-26] MEDS ORDERED: Mag-Al Plus 1200 MG/1200 MG/120 MG/30 ML UDCUP ONE (05:41)
[2019-02-26] MEDS ORDERED: Ketorolac Tromethamine 30 MG/ML VIAL ONE (05:41)
[2019-02-26] MEDS ORDERED: Lidocaine Viscous Sol 2% 15 ml UD Cup ONE (05:41)
[2019-02-26] MEDS ORDERED: Dexamethasone 10 MG/ML VIAL ONE (06:10)
--- NOTE | 2019-02-26 07:29 | RAD ---
EXAM: Single view of the chest HISTORY: Chest pain COMPARISON: 01/05/2019 FINDINGS: Single view of the chest shows a normal sized cardiomediastinal silhouette. The patient is status post sternotomy. There is no evidence of consolidation, mass, or pleural effusion. The bones are unremarkable. IMPRESSION: No evidence of acute cardiopulmonary disease
== END 2019-02-26 06:33 | disposition home or self-care (01) ==
LOC: SCSER 04:40
DX: J20.9 Acute bronchitis, unspecified (principal); R07.89 Other chest pain; I25.2 Old myocardial infarction; E11.9 Type 2 diabetes mellitus without complications; I10 Essential (primary) hypertension; G40.909 Epilepsy, unspecified, not intractable, without status epilepticus; F17.210 Nicotine dependence, cigarettes, uncomplicated; Z79.899 Other long term (current) drug therapy; Z79.82 Long term (current) use of aspirin
CPT/HCPCS: 71045; 80053; 84484; 85025; 93005; 96361; 96374; J1100; J1885

== ENCOUNTER 2019-02-28 22:05 | Emergency (ER) | payer SELFPAY ==
[2019-02-28] MEDS ORDERED: Nitroglycerin 2% Ointment 1 INCH/1 GM Packet ONE (22:34)
--- NOTE | 2019-02-28 22:35 | RAD ---
EXAM: CHEST ONE VIEW HISTORY: Chest pain COMPARISON: 02/26/2019 FINDINGS: Postsurgical changes related to CABG are again noted. The cardiac silhouette and pulmonary vasculatur e are within normal limits for the portable technique of the exam. The lungs are clear. The osseous structures are intact. IMPRESSION: Stable chest without evidence of an acute cardiopulmonary process.
[2019-02-28 22:57] LABS: Hemoglobin 13.1 g/dL (14.0-18.0); Mean Corpuscular HGB CONC 34.3 g/dL (32.0-36.0); Mean Corpuscular Hemoglobin 30.9 pg (27.0-31.0); Mean Corpuscular Volume 90.2 fL (78.0-98.0); Mean Platelet Volume 7.2 fL (7.4-10.4); Platelet Count 324 thou/uL (130-400); RBC Distribution Width 13.2 % (11.5-14.5); Red Blood Cell (RBC) Count 4.23 mill/uL (4.70-6.10); White Blood Cell (WBC) Count 23.5 thou/uL (4.8-10.8)
[2019-02-28 23:05] LABS: ALT (SGPT) 21 U/L (8-55); AST (SGOT) 14 U/L (5-34); Albumin 3.9 g/dL (3.5-5.0); Alkaline Phosphatase 59 U/L (40-150); Anion Gap 13 mmol/L (10-20); BUN (Urea Nitrogen) 16 mg/dL (8.9-20.6); Bilirubin, Total 0.2 mg/dL (0.2-1.2); CK (CPK) 38 U/L (30-200); Calc. Creatinine Clearance 0 mL/min (70-130); Calcium 9.1 mg/dL (7.8-10.44); Carbon Dioxide 24 mmol/L (22-29); Chloride 107 mmol/L (98-107); Estimated GFR-MDRD Greater than 90; Globulin 2.4 g/dL (2.4-3.5); Glucose 108 mg/dL (70-105); Lipase 32 U/L (8-78); Potassium 3.9 mmol/L (3.5-5.1); Protein, Total 6.3 g/dL (6.0-8.3); Sodium 140 mmol/L (136-145)
[2019-02-28 23:05] LABS: Band 1 % (5-11); Eosinophils 1 % (0-10); Lymphocytes 29 % (21-51); MDiff Complete? YES; Monocytes 8 % (0-10); Neutrophil 61 % (42-75); Platelet Morphology Comment Appears Adequate
[2019-02-28 23:51] LABS: Bilirubin Negative (Negative); Blood, Urine Negative (Negative); Clarity CLEAR (Clear); Glucose, Urine (Dipstick) Negative (Negative); Leukocyte Negative (Negative); Nitrite Negative (Negative); Protein, Urine (Dipstick) Negative (Neg-Trace); Specific Gravity, Urine 1.013 (1.002-1.036); Urobilinogen 0.2 mg/dL (0.2-1.0); pH, Urine 5.5 (5.0-9.0)
[2019-03-01] MEDS ORDERED: Morphine 4 MG/ML VIAL ONE (00:17)
== END 2019-03-01 00:55 | disposition home or self-care (01) ==
LOC: ERS 22:05
DX: R07.89 Other chest pain (principal); R05 Cough; I10 Essential (primary) hypertension; G40.909 Epilepsy, unspecified, not intractable, without status epilepticus; K58.9 Irritable bowel syndrome, unspecified; F17.210 Nicotine dependence, cigarettes, uncomplicated; Z79.899 Other long term (current) drug therapy; Z71.6 Tobacco abuse counseling
CPT/HCPCS: 36415; 71045; 80053; 81003; 82550; 83690; 83880; 84484; 85025; 93005; 96374; 99406; J2270

== ENCOUNTER 2019-03-03 03:11 | Emergency (ER) | payer SELFPAY ==
[2019-03-03 04:09] LABS: #Basophils 0.1 thou/uL (0.0-0.2); #Eosinphils 0.7 thou/uL (0.0-0.7); #Lymphocytes 3.1 thou/uL (1.20-3.40); #Monocytes 1.3 thou/uL (0.11-0.59); #Neutrophils 9.2 thou/uL (1.40-6.50); %Basophils 0.5 % (0.0-1.0); %Lymphocytes 21.3 % (21.0-51.0); %Monocytes 8.8 % (0.0-10.0); %Neutrophils 64.3 % (42.0-75.0); Hemoglobin 14.9 g/dL (14.0-18.0); Mean Corpuscular HGB CONC 33.7 g/dL (32.0-36.0); Mean Corpuscular Hemoglobin 30.9 pg (27.0-31.0); Mean Corpuscular Volume 91.7 fL (78.0-98.0); Mean Platelet Volume 7.1 fL (7.4-10.4); Platelet Count 326 thou/uL (130-400); RBC Distribution Width 13.1 % (11.5-14.5); Red Blood Cell (RBC) Count 4.81 mill/uL (4.70-6.10); White Blood Cell (WBC) Count 14.4 thou/uL (4.8-10.8)
[2019-03-03 04:34] LABS: Bilirubin Negative (Negative); Blood, Urine Negative (Negative); Clarity CLEAR (Clear); Glucose, Urine (Dipstick) Negative (Negative); Leukocyte Negative (Negative); Nitrite Negative (Negative); Protein, Urine (Dipstick) Negative (Neg-Trace); Specific Gravity, Urine 1.005 (1.002-1.036); Urobilinogen 0.2 mg/dL (0.2-1.0); pH, Urine 6.5 (5.0-9.0)
[2019-03-03 04:49] LABS: ALT (SGPT) 22 U/L (8-55); AST (SGOT) 14 U/L (5-34); Albumin 4.1 g/dL (3.5-5.0); Alkaline Phosphatase 64 U/L (40-150); BUN (Urea Nitrogen) 12 mg/dL (8.9-20.6); Bilirubin, Total 0.4 mg/dL (0.2-1.2); Calc. Creatinine Clearance 0 mL/min (70-130); Calcium 9.7 mg/dL (7.8-10.44); Carbon Dioxide 23 mmol/L (22-29); Chloride 104 mmol/L (98-107); Estimated GFR-MDRD 85; Glucose 89 mg/dL (70-105); Potassium 4.3 mmol/L (3.5-5.1); Protein, Total 7.1 g/dL (6.0-8.3); Sodium 138 mmol/L (136-145)
[2019-03-03 04:52] LABS: Anion Gap 15 mmol/L (10-20)
[2019-03-03] MEDS ORDERED: Ketorolac Tromethamine 30 MG/ML VIAL ONE (05:25)
[2019-03-03] MEDS ORDERED: Acetaminophen 500 MG TAB ONE (05:25)
[2019-03-03] MEDS ORDERED: Morphine 4 MG/ML VIAL ONE (05:51)
[2019-03-03] MEDS ORDERED: cefTRIAXone\\ROCEPHIN 250 MG VIAL ONE (06:20)
[2019-03-03 06:45] LABS: Lactic Acid 2.2 mmol/L (0.5-2.2)
[2019-03-03] MEDS ORDERED: HYDROcodone/Acetaminophen 10/325 mg Tablet ONE (06:48)
[2019-03-03] MEDS ORDERED: Morphine 2 MG/ML SYRINGE ONE (06:51)
[2019-03-03 07:59] LABS: Lactic Acid 2.3 mmol/L (0.5-2.2)
--- NOTE | 2019-03-03 08:04 | RAD ---
CHEST 1 VIEW: Date: 03/03/19 INDICATION: Sepsis alert. COMPARISON: Prior exam dated 02/28/19. FINDINGS: COPD change and midline sternotomy similar appearing. Mild cardiomegaly is stable. Lungs are clear. N o pleural effusion or pneumothorax evident. No acute osseous abnormality evident. IMPRESSION: Stable exam. No acute abnormality evident. POS: BH
== END 2019-03-03 08:00 | disposition home or self-care (01) ==
LOC: ERS 03:11
DX: N45.1 Epididymitis (principal); E86.0 Dehydration; Z71.6 Tobacco abuse counseling; I25.2 Old myocardial infarction; E11.9 Type 2 diabetes mellitus without complications; I10 Essential (primary) hypertension; G40.909 Epilepsy, unspecified, not intractable, without status epilepticus; F17.210 Nicotine dependence, cigarettes, uncomplicated; Z79.899 Other long term (current) drug therapy
CPT/HCPCS: 36415; 71045; 80053; 81003; 83605; 85025; 87040; 87086; 87149; 96361; 96365; 96375; 96376; 99406; J0696; J1885; J2270

== ENCOUNTER 2019-03-09 20:18 | Inpatient (IN) | payer SELFPAY ==
[2019-03-09] MEDS ORDERED: Nitroglycerin 0.4 MG TAB (25 Tab Bottle) ONE (20:44)
[2019-03-09] MEDS ORDERED: Colchicine 0.6 MG TAB ONE (20:44)
[2019-03-09] MEDS ORDERED: Aspirin 325 MG TAB ONE (20:44)
[2019-03-09 20:47] LABS: #Basophils 0.2 thou/uL (0.0-0.2); #Eosinphils 0.7 thou/uL (0.0-0.7); #Lymphocytes 3.9 thou/uL (1.20-3.40); #Monocytes 0.8 thou/uL (0.11-0.59); #Neutrophils 7.7 thou/uL (1.40-6.50); %Basophils 1.5 % (0.0-1.0); %Eosinophils 5.3 % (0.0-10.0); %Lymphocytes 29.3 % (21.0-51.0); %Monocytes 6.1 % (0.0-10.0); %Neutrophils 57.8 % (42.0-75.0); Hemoglobin 13.6 g/dL (14.0-18.0); Mean Corpuscular Volume 88.4 fL (78.0-98.0); Mean Platelet Volume 6.7 fL (7.4-10.4); Platelet Count 306 thou/uL (130-400); RBC Distribution Width 13.1 % (11.5-14.5); Red Blood Cell (RBC) Count 4.39 mill/uL (4.70-6.10); White Blood Cell (WBC) Count 13.3 thou/uL (4.8-10.8)
[2019-03-09 21:04] LABS: ALT (SGPT) 23 U/L (8-55); AST (SGOT) 15 U/L (5-34); Albumin 4.1 g/dL (3.5-5.0); Alkaline Phosphatase 63 U/L (40-150); Anion Gap 15 mmol/L (10-20); BUN (Urea Nitrogen) 16 mg/dL (8.9-20.6); Bilirubin, Total 0.3 mg/dL (0.2-1.2); Calc. Creatinine Clearance 0 mL/min (70-130); Carbon Dioxide 23 mmol/L (22-29); Chloride 104 mmol/L (98-107); Estimated GFR-MDRD 85; Glucose 88 mg/dL (70-105); Protein, Total 7.1 g/dL (6.0-8.3); Sodium 138 mmol/L (136-145)
[2019-03-09] MEDS ORDERED: Morphine 4 MG/ML VIAL ONE ×2 (21:15→21:46)
[2019-03-09] MEDS ORDERED: Enoxaparin Sodium 100 MG/ML SYRINGE ONE (21:20)
[2019-03-09 21:45] LABS: CKMB 0.9 ng/mL (0-6.6)
[2019-03-09] MEDS ORDERED: Nitroglycerin 0.4 MG TAB (25 Tab Bottle) SL PRN (22:28)
[2019-03-09 22:45] VITALS: BMI 35.7
[2019-03-09] MEDS ORDERED: Ondansetron ODT 4 MG TAB PO PRN (23:14)
[2019-03-09] MEDS ORDERED: Acetaminophen 650 MG Suppository PR PRN (23:14)
--- NOTE | 2019-03-10 00:24 | HP ---
PRIMARY CARE DOCTOR: Dr. Wall. CODE STATUS: Full code. TIME OF EVALUATION: 10:40 HISTORY OF PRESENT ILLNESS: This is a 38-year-old male patient with past medical history of CABG that was done on 03/26/2018, also has a stent, came to the hospital after having recurrent chest pain with no clear triggers. No alleviating factors. The patient reported he was at home when the pain started. The symptoms have been present for the past 2-3 hours. The symptoms were reported as severe, was in the middle of the chest, radiating to the right. REVIEW OF SYSTEMS: CONSTITUTIONAL: No fever, chills, or generalized weakness. RESPIRATORY: No cough, sputum production, or shortness of breath. CARDIOVASCULAR: The patient has chest pain. No palpitation. GASTROINTESTINAL: No nausea. No vomiting, diarrhea, or abdominal pain. STARS SPECIALIST: No dizziness, headache, or feeling lightheaded. GENITOURINARY: No burning urination. EXTREMITIES: No leg swelling. All other systems were reviewed and negative except for the findings mentioned above. PAST MEDICAL HISTORY: Positive for coronary artery disease, epilepsy, atrial fibrillation, diabetes type 2. PAST SURGICAL HISTORY: Left thumb surgery, 4-vessel CABG in March 2018. PSYCHIATRIC HISTORY: The patient has history of panic attacks. SOCIAL HISTORY: No alcohol. No drugs. The patient is an everyday smoker. FAMILY HISTORY: The patient has a father with heart disease. ALLERGIES: IODINE, PENICILLIN, SHELLFISH CONTAINING PRODUCTS, SULFA. HOME MEDICATIONS: 1. Amiodarone. 2. Aspirin. 3. Clonazepam. 4. Hydroxyzine. 5. Isosorbide. 6. Lamotrigine. 7. . 8. . 9. Morphine ER. 10. Phenytoin. 11. Quetiapine. LABORATORY DATA: Reviewed. The patient has white count 13.3, hemoglobin 13.6, MCV 88.4, platelet count 306. Chemistry; sodium 138, potassium 4, chloride 104, carbon dioxide 23, anion gap 15, BUN 16, creatinine 0.98, GFR 85, glucose 88, calcium 10.0. Total bilirubin, AST, ALT, and alkaline phosphatase were negative. Troponin 0.342. In previous admissions, the troponin has been negative for this patient. Serum total protein 7.1, albumin 4.1, globulin 3.0, albumin to globulin ratio is 1.4. ASSESSMENT AND PLAN: The patient will be placed in the hospital for the following medical problems. 1. Tem-RI-fffmhpmpi myocardial infarction type 1. The patient was given Lovenox. We will reconcile the home medications. The patient has strong history, the patient has history of CABG in [place] past year. The patient follows with Dr. Cabrera. He reported being compliant with medications. History and findings seem to be pointing to acute coronary syndrome. We will consult Dr. Cabrera. We will follow recommendations. 2. History of epilepsy. The patient has been restarted on his home medications. 3. History of atrial fibrillation, is chronic, has been controlled. Reconcile home medications. 4. Deep venous thrombosis prophylaxis. Job ID: [id number]
[2019-03-10 00:50] LABS: Troponin I 0.434 ng/mL (< 0.028)
[2019-03-10] MEDS: Morphine ER 15 MG TAB PO PRN ×2 (00:51→12:58)
[2019-03-10 03:39] LABS: #Basophils 0.1 thou/uL (0.0-0.2); #Eosinphils 0.8 thou/uL (0.0-0.7); #Lymphocytes 4.7 thou/uL (1.20-3.40); #Neutrophils 7.8 thou/uL (1.40-6.50); %Basophils 0.9 % (0.0-1.0); %Eosinophils 5.8 % (0.0-10.0); %Lymphocytes 32.2 % (21.0-51.0); %Monocytes 6.7 % (0.0-10.0); %Neutrophils 54.3 % (42.0-75.0); Hemoglobin 13.9 g/dL (14.0-18.0); Mean Corpuscular HGB CONC 34.1 g/dL (32.0-36.0); Mean Corpuscular Hemoglobin 31.5 pg (27.0-31.0); Mean Corpuscular Volume 92.4 fL (78.0-98.0); Mean Platelet Volume 7.4 fL (7.4-10.4); Platelet Count 311 thou/uL (130-400); RBC Distribution Width 12.8 % (11.5-14.5); Red Blood Cell (RBC) Count 4.42 mill/uL (4.70-6.10); White Blood Cell (WBC) Count 14.4 thou/uL (4.8-10.8)
[2019-03-10 03:41] LABS: Anion Gap 14 mmol/L (10-20); BUN (Urea Nitrogen) 19 mg/dL (8.9-20.6); Calc. Creatinine Clearance 138 mL/min (70-130); Calcium 9.9 mg/dL (7.8-10.44); Carbon Dioxide 25 mmol/L (22-29); Chloride 104 mmol/L (98-107); Estimated GFR-MDRD 79; Glucose 94 mg/dL (70-105); Potassium 4.4 mmol/L (3.5-5.1); Sodium 139 mmol/L (136-145)
[2019-03-10 03:51] LABS: Critical Call Chem Troponin I RESULT DECREASING; Troponin I 0.427 ng/mL (< 0.028)
[2019-03-10 07:19] LABS: Cardiac Risk 6.5 (Less than 4.5)
[2019-03-10] MEDS: Acetaminophen 325 MG TAB PO PRN (08:46)
[2019-03-10] MEDS: Aspirin 325 MG TAB PO SCH (08:47)
[2019-03-10] MEDS: lamoTRIgine 100 MG TAB PO SCH (08:47)
[2019-03-10] MEDS: levETIRAcetam 500 MG TAB PO SCH (08:47)
[2019-03-10] MEDS: hydrOXYzine Pamoate 25 mg Capsule PO SCH (08:48)
[2019-03-10] MEDS: Enoxaparin Sodium 100 MG/ML SYRINGE SC SCH ×2 (08:48→19:50)
[2019-03-10] MEDS ORDERED: Amiodarone 200 MG TAB PO SCH (09:00)
[2019-03-10] MEDS ORDERED: Enoxaparin Sodium 40 MG/0.4 ML SYRINGE SC SCH (09:00)
[2019-03-10] MEDS ORDERED: TICAGRELOR 90 MG TABLET PO SCH (10:45)
--- NOTE | 2019-03-10 11:14 | PDOC.PN ---
- Subjective Encounter Start Date: 03/10/19 Encounter Start Time: 11:15 Subjective: f/u for CP and ? NSTEMI with hx of early CAD, s/p CABG 04/01. -: Tx currently with ASA/Lovenox/Brilinta. - Objective Resuscitation Status - Order Detail: 03/09/19 23:14 Resuscitation Status Routine Resuscitation Status: FULL: Full Resuscitation MAR Reviewed: Yes Vital Signs & Weight: Vital Signs (12 hours) Temp Pulse Resp BP Pulse Ox 03/10/19 07:11 97.7 F 82 16 97/59 L 92 L 03/10/19 03:36 97.7 F 84 19 106/68 97 Weight Weight 228 lb 6.4 oz I&O: 03/09/19 03/10/19 03/11/19 06:59 06:59 06:59 Intake Total 200 Balance 200 Result Diagrams: 03/10/19 03:04 03/10/19 03:04 Additional Labs: Microbiology 04/02/18 18:40 Venous blood - Right Arm Blood Culture - Preliminary Specimen has been received and culture in progress. No Growth to date. 04/02/18 18:35 Venous blood - Left Hand Blood Culture - Preliminary Specimen has been received and culture in progress. No Growth to date. Laboratory Tests 04/02/18 04/02/18 07/26/18 17:30 17:30 08:05 WBC 14.5 H Hgb 10.7 L D-Dimer 8.02 H Troponin I 07/28/18 03/09/19 03/09/19 03:29 20:43 20:43 WBC 17.6 H 13.3 H Hgb 13.6 L D-Dimer Troponin I 0.342 H* 03/09/19 03/10/19 23:44 03:04 WBC Hgb D-Dimer Troponin I 0.434 H* 0.427 H* Radiology Reviewed by me: Yes (PCXR - no acute process) EKG Reviewed by me: Yes (Tele - SR) Phys Exam - Physical Examination Constitutional: NAD HEENT: PERRLA, sclera anicteric, oral pharynx no lesions Neck: no nodes, no JVD, supple, full ROM Respiratory: no wheezing, no rales, no rhonchi, clear to auscultation bilateral S1, S2 Cardiovascular: RRR, no significant murmur, no rub, gallop Gastrointestinal: soft, non-tender, no distention, positive bowel sounds Musculoskeletal: no edema, pulses present Neurological: normal sensation, moves all 4 limbs Psychiatric: A&O x 3 Skin: normal turgor, cap refill <2 seconds Dx/Plan (1) NSTEMI (non-ST elevated myocardial infarction) Code(s): I21.4 - NON-ST ELEVATION (NSTEMI) MYOCARDIAL INFARCTION Status: Acute Comment: Continue Lovenox/ASA/Brilinta, Cardiology consulted, records requested from [facility] (2) 3-vessel coronary artery disease Status: Chronic Comment: s/p CABG x 3v 03/2018, continue ASA, Lipitor (3) Anxiety and depression Code(s): F41.9 - ANXIETY DISORDER, UNSPECIFIED; F32.9 - MAJOR DEPRESSIVE DISORDER, SINGLE EPISODE, UNSPECIFIED Status: Chronic Comment: Continue Klonopin/Lamictal/Seroquel (4) Dyslipidemia Code(s): E78.5 - HYPERLIPIDEMIA, UNSPECIFIED Status: Chronic Comment: Lipitor 40mg HS (5) Obesity (BMI 30-39.9) Code(s): E66.9 - OBESITY, UNSPECIFIED Status: Chronic Comment: stable (6) Tobacco abuse Code(s): Z72.0 - TOBACCO USE Status: Chronic Comment: Tobacco cessation resources - Plan 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
--- NOTE | 2019-03-10 11:44 | CON ---
DATE OF CONSULTATION: 03/10/2019 REASON FOR CONSULTATION: Non-ST elevation myocardial infarction. HISTORY OF PRESENT ILLNESS: Mr. Yunier Batres is an unfortunate 38-year-old gentleman with recurrent chest pain. Mr. Batres has a long history of chest pain. Please see the previous notes for full details. Briefly, he had heart catheterization done at [facility]. Bypass was recommended. He refused and left AMA. Ultimately, he underwent bypass surgery here by Dr. Carvajal. The patient did have a tremendous amount of chest pain before the surgery, it was thought that not all his pain was angina, but the bypass was still indicated because of the intractable nature of his chest pain, some of which was angina at rest. The patient continued to have chest pain in the postoperative period. He was hospitalized multiple times. He most recently was seen at [facility] and underwent evaluation by Dr. Robert Chamorro. The patient tells me he underwent cardiac catheterization and a stent was placed. Unfortunately, this pain he said persisted after the stent was placed. He came to the hospital last night with intractable chest pain and was found to have a slightly increased troponin level as it will be outlined below. PAST MEDICAL HISTORY: 1. Previous bypass surgery. 2. Hypertension. 3. Some noncompliance issues. MEDICATIONS: At home included; 1. Aspirin. 2. Amiodarone, from what I can tell he has been taking since bypass surgery. 3. I do not see that he is on a statin. 4. Isosorbide 30 mg a day. 5. MS Contin 15 mg a day. 6. The patient was prescribed Brilinta, but could not afford it. Therefore, he has not been taking anything except for aspirin for antiplatelet drugs. PHYSICAL EXAMINATION: GENERAL: This is a pleasant gentleman, who is 5 foot 7 inches, 228 pounds, and BMI is 35.8. NECK: Veins are normal. Carotid normal upstrokes. LUNGS: Clear. CARDIAC: Normal S1 and normal S2. ABDOMEN: Obese and nontender. EXTREMITIES: No clubbing or cyanosis. There is no edema. LABORATORY DATA: The patient's troponin level went to 0.434. Triglycerides 4274, cholesterol is 195, and the LDL is 110, he is not on a statin. ASSESSMENT: 1. Non-ST elevation infarction. 2. Previous bypass surgery. 3. Recent stent implantation by Dr. Robert Chamorro. 4. Noncompliance with medication, not taking Brilinta as he said he could not afford it. 5. Not on a statin. 6. Allergic to iodine. Requires pretreatment before iodine exposure. PLAN: 1. He is on subcutaneous Lovenox. 2. Start statin. 3. Stop amiodarone. I do not see any recent history of atrial fibrillation. 4. We will resume Brilinta and give him some samples. He has an appointment to see Dr. Chamorro later this month or early next month. If he cannot afford the Brilinta, then consideration for Plavix should be given. Job ID: [id number]
[2019-03-10] MEDS: Nitroglycerin 0.4 MG TAB (25 Tab Bottle) SL PRN (15:16)
[2019-03-10] MEDS: Ketorolac Tromethamine 30 MG/ML VIAL IVP SCH (15:51)
[2019-03-10] MEDS: Morphine 2 MG/ML SYRINGE SLOW IVP PRN ×2 (15:54→19:51)
[2019-03-10 16:09] LABS: CKMB 1.2 ng/mL (0-6.6)
[2019-03-10 16:12] LABS: Critical Call Chem Troponin I RESULT DECREASING; Troponin I 0.343 ng/mL (< 0.028)
--- NOTE | 2019-03-10 16:32 | PRG ---
DATE OF SERVICE: SUBJECTIVE: I was called on Mr. Batres's bedside due to chest pain. He states his pain was dull, worse with deep breath. He appears comfortable. He recently underwent a stent placement by Dr. Robert Chamorro. I did discuss the case with Dr. Robert Chamorro. He underwent a stent placement to the circumflex artery. He states he had pain prior to and after his stent placement and had a followup ER visit after stent placement due to the above. It is well documented in Mr. Batres's chart that he has continued to have pain despite revascularization on multiple occasions. After reviewing his EKG, it appears stable. After receiving nitroglycerin, he states he is better. We will also give a dose of Toradol and morphine. We will get serial CKs and troponins. His troponin is elevated with normal MB. Troponin was 0.3. After discussing the case with Dr. Robert Chamorro, it appears his troponin was elevated as well last week prior to stent placement. I would recommend close observation. We will try and refrain from proceeding with angio unless any changes occur. We will discuss with Dr. Sheehan. Job ID: [id number]
[2019-03-10] MEDS: Ondansetron PF 4 MG/2 ML Vial IVP PRN (16:56)
[2019-03-10 18:28] LABS: CKMB 1.1 ng/mL (0-6.6)
[2019-03-10 18:29] LABS: Critical Call Chem Troponin I RESULT DECREASING; Troponin I 0.341 ng/mL (< 0.028)
[2019-03-10] MEDS: TICAGRELOR 90 MG TABLET PO SCH (19:50)
[2019-03-10] MEDS: Atorvastatin Calcium 40 MG TAB PO SCH (19:50)
[2019-03-10] MEDS: clonazePAM 1 MG TAB PO SCH (19:50)
[2019-03-10 20:02] LABS: CKMB 1.2 ng/mL (0-6.6)
[2019-03-10 20:03] LABS: Critical Call Chem Troponin I RESULT DECREASING; Troponin I 0.338 ng/mL (< 0.028)
[2019-03-10] MEDS ORDERED: Rosuvastatin 20 MG TAB PO SCH (21:00)
[2019-03-11] MEDS: Morphine ER 15 MG TAB PO PRN ×2 (04:33→16:35)
[2019-03-11 06:45] LABS: Hemoglobin 13.5 g/dL (14.0-18.0); Mean Corpuscular HGB CONC 34.5 g/dL (32.0-36.0); Mean Corpuscular Hemoglobin 31.8 pg (27.0-31.0); Mean Corpuscular Volume 92.1 fL (78.0-98.0); Mean Platelet Volume 7.5 fL (7.4-10.4); Platelet Count 283 thou/uL (130-400); RBC Distribution Width 12.6 % (11.5-14.5); Red Blood Cell (RBC) Count 4.24 mill/uL (4.70-6.10); White Blood Cell (WBC) Count 10.1 thou/uL (4.8-10.8)
[2019-03-11 06:55] LABS: Band 2 % (5-11); Eosinophils 5 % (0-10); Lymphocytes 29 % (21-51); MDiff Complete? YES; Monocytes 2 % (0-10); Neutrophil 61 % (42-75); Reactive Lymphocytes 1 % (0-10)
[2019-03-11] MEDS: Enoxaparin Sodium 100 MG/ML SYRINGE SC SCH ×2 (08:26→19:53)
[2019-03-11] MEDS: levETIRAcetam 500 MG TAB PO SCH (08:27)
[2019-03-11] MEDS: TICAGRELOR 90 MG TABLET PO SCH ×2 (08:27→19:53)
[2019-03-11] MEDS: Aspirin 325 MG TAB PO SCH (08:27)
[2019-03-11] MEDS: lamoTRIgine 100 MG TAB PO SCH (08:27)
[2019-03-11] MEDS: hydrOXYzine Pamoate 25 mg Capsule PO SCH (08:29)
--- NOTE | 2019-03-11 09:37 | PRG ---
DATE OF SERVICE: 03/11/2019 SUBJECTIVE: Mr. Batres continues to have chest pain off and on. He has been mostly lying in bed. OBJECTIVE: VITAL SIGNS: His blood pressure is 103/64, pulse 88. LUNGS: Clear. CARDIAC: Normal S1, normal S2. The patient reports to me that all his bypass grafts were open at the recent catheterization, and then, the stent was placed in the vessel that could not be bypassed. ASSESSMENT: 1. Status post non-ST elevation infarction. 2. Diffuse atherosclerotic heart disease. 3. Recent bypass and stent implantation. 4. Iodine allergy. PLAN: Again, we will re-request records from the [facility]. From the patient's description, it sounds like there may not be much else to do from an interventional standpoint. He continues on subcutaneous Lovenox and dual anti-platelet drugs for now. Job ID: [id number]
[2019-03-11] MEDS: Morphine 2 MG/ML SYRINGE SLOW IVP PRN (09:41)
--- NOTE | 2019-03-11 12:43 | PDOC.PN ---
- Subjective Encounter Start Date: 03/11/19 Encounter Start Time: 12:42 Mr. Batres was seen today in follow-up of NSTEMI. He says he continues to have chest pain. He denies any dyspnea. - Objective Resuscitation Status - Order Detail: 03/09/19 23:14 Resuscitation Status Routine Resuscitation Status: FULL: Full Resuscitation MAR Reviewed: Yes Vital Signs & Weight: Vital Signs (12 hours) Temp Pulse Resp BP Pulse Ox 03/11/19 11:18 97.9 F 91 18 103/65 95 03/11/19 07:07 97.5 F L 81 17 108/53 L 92 L 03/11/19 04:32 88 103/64 03/11/19 03:05 97.8 F 89 16 100/57 L 96 Weight Weight 228 lb 6.4 oz I&O: 03/10/19 03/11/19 03/12/19 06:59 06:59 06:59 Intake Total 200 200 Balance 200 200 Result Diagrams: 03/11/19 06:11 03/11/19 06:11 Phys Exam - Physical Examination HEENT: PERRLA Respiratory: no wheezing, no rales, no rhonchi, clear to auscultation bilateral Cardiovascular: RRR, no significant murmur, no rub Gastrointestinal: soft, non-tender, no distention, positive bowel sounds Musculoskeletal: no edema, pulses present Neurological: non-focal, normal sensation, moves all 4 limbs Dx/Plan (1) NSTEMI (non-ST elevated myocardial infarction) Code(s): I21.4 - NON-ST ELEVATION (NSTEMI) MYOCARDIAL INFARCTION Status: Acute Comment: Continue Lovenox/ASA/Brilinta, Cardiology consulted, records requested from [facility] (2) Chest pain Code(s): R07.9 - CHEST PAIN, UNSPECIFIED Status: Acute Qualifiers: Chest pain type: unspecified Qualified Code(s): R07.9 - Chest pain, unspecified Comment: No evidence of cardiac etiology, supportive mgmt, d/c tele (3) Dyslipidemia Code(s): E78.5 - HYPERLIPIDEMIA, UNSPECIFIED Status: Chronic Comment: Lipitor 40mg HS (4) Tobacco abuse Code(s): Z72.0 - TOBACCO USE Status: Chronic Comment: Tobacco cessation resources - Plan * NSTEMI- continue Lovenox , aspirin and Brilinta, and nitrates Dr. Cope is awaiting his medical records from [facility] * Dyslipidemia- continue Lipitor * Blood pressure is too low for Beta-delisa .
[2019-03-11] MEDS: Ketorolac Tromethamine 30 MG/ML VIAL IVP SCH (16:31)
[2019-03-11] MEDS: clonazePAM 1 MG TAB PO SCH (19:53)
[2019-03-11] MEDS: Atorvastatin Calcium 40 MG TAB PO SCH (19:53)
[2019-03-11] MEDS: Acetaminophen 325 MG TAB PO PRN (19:53)
[2019-03-12] MEDS: Acetaminophen 325 MG TAB PO PRN ×4 (00:04→21:07)
[2019-03-12] MEDS: Morphine ER 15 MG TAB PO PRN ×2 (04:04→16:31)
[2019-03-12 05:06] LABS: Troponin I 0.185 ng/mL (< 0.028)
[2019-03-12] MEDS ORDERED: Aspirin 325 MG TAB PO SCH (08:00)
[2019-03-12] MEDS: Enoxaparin Sodium 100 MG/ML SYRINGE SC SCH (08:30)
[2019-03-12] MEDS: Aspirin Chewable 81 MG TAB PO SCH (08:30)
[2019-03-12] MEDS: hydrOXYzine Pamoate 25 mg Capsule PO SCH (08:31)
[2019-03-12] MEDS: TICAGRELOR 90 MG TABLET PO SCH ×2 (08:32→21:06)
[2019-03-12] MEDS: levETIRAcetam 500 MG TAB PO SCH (08:32)
[2019-03-12] MEDS: lamoTRIgine 100 MG TAB PO SCH (08:37)
--- NOTE | 2019-03-12 09:33 | PRG ---
DATE OF SERVICE: 03/11/2019 ADDENDUM: Mr. Batres's records came from [facility]. Dr. Chamorro did a cardiac catheterization just a few days prior to this admission. All the bypass grafts were open. There was a distal circumflex which was not able to be bypassed. That area was reperfused with a stent. Just from looking at the diagram, it does not look like any further intervention would be indicated or useful. We will discontinue the morphine he is getting intravenously, increase nitrates, hopefully home soon. Unfortunately long-term prognosis in terms of recurrent pain appears poor, although with normal ejection fraction in a revascularized patient, the prognosis otherwise may be fairly is good. The patient needs to try to lose weight, exercise more regularly, take medicines as prescribed. Job ID: [id number]
--- NOTE | 2019-03-12 10:13 | PRG ---
DATE OF SERVICE: 03/12/2019 SUBJECTIVE: Mr. Batres is doing better today. Today, the chest pain has improved. Blood pressure 117/74, pulse is 80. The patient's troponin level has dropped down to 0.185. ASSESSMENT: 1. Coronary artery disease, previous bypass surgery, recent stent implantation at [facility]. 2. Likely has small vessel disease based on clinical course. 3. Does have a closure device in the right femoral artery just placed. 4. Hypercholesterolemia. PLAN: 1. Stop enoxaparin. 2. Continue aspirin. 3. Discussed Ranexa. He says he cannot afford it. 4. We can give him samples of Brilinta. 5. Home tomorrow if stable. 6. He needs to be on a statin. Job ID: [id number]
[2019-03-12] MEDS: Ondansetron PF 4 MG/2 ML Vial IVP PRN (10:17)
[2019-03-12] MEDS: Nitroglycerin 0.4 MG TAB (25 Tab Bottle) SL PRN ×2 (11:27→12:03)
--- NOTE | 2019-03-12 11:47 | PDOC.PN ---
- Subjective Encounter Start Date: 03/12/19 Encounter Start Time: 11:45 Mr. Batres was seen today in follow-up of Unstable angina. He says he continues to have severe 9/10 chest pain. He admits he is breathing better. - Objective Resuscitation Status - Order Detail: 03/09/19 23:14 Resuscitation Status Routine Resuscitation Status: FULL: Full Resuscitation MAR Reviewed: Yes Vital Signs & Weight: Vital Signs (12 hours) Temp Pulse Resp BP Pulse Ox 03/12/19 11:17 97.9 F 97 14 99/65 94 L 03/12/19 08:25 97.9 F 83 13 117/74 94 L 03/12/19 04:00 98.2 F 82 20 104/57 L 92 L 03/12/19 00:00 85 105/55 L Weight Weight 228 lb 6.4 oz I&O: 03/11/19 03/12/19 03/13/19 06:59 06:59 06:59 Intake Total 200 200 Balance 200 200 Result Diagrams: 03/11/19 06:11 03/11/19 06:11 Phys Exam - Physical Examination HEENT: PERRLA, sclera anicteric Respiratory: no wheezing, no rales, no rhonchi, clear to auscultation bilateral Cardiovascular: RRR, no significant murmur, no rub Gastrointestinal: soft, non-tender, no distention, positive bowel sounds Musculoskeletal: no edema, pulses present Neurological: non-focal, normal sensation, moves all 4 limbs Dx/Plan (1) Unstable angina Status: Acute (2) Chest pain Code(s): R07.9 - CHEST PAIN, UNSPECIFIED Status: Acute Qualifiers: Chest pain type: unspecified Qualified Code(s): R07.9 - Chest pain, unspecified Comment: No evidence of cardiac etiology, supportive mgmt, d/c tele (3) Dyslipidemia Code(s): E78.5 - HYPERLIPIDEMIA, UNSPECIFIED Status: Chronic Comment: Lipitor 40mg HS (4) Tobacco abuse Code(s): Z72.0 - TOBACCO USE Status: Chronic Comment: Tobacco cessation resources (5) Seizure Code(s): R56.9 - UNSPECIFIED CONVULSIONS Status: Chronic Comment: Pt has a h /o seizure disorder, phenytoin level is therapeutic. Started on keppra, await EEG. - Plan * Chest pain- This is better characterized as Unstable Angina per Cardiology * Will continue aspirin, Brillinta, Nitrates Lovenox, and statins * Await further recommendations from Cardiology * Seizure disorder- stable.
[2019-03-12] MEDS: Ketorolac Tromethamine 30 MG/ML VIAL IVP SCH (15:52)
[2019-03-12] MEDS: clonazePAM 1 MG TAB PO SCH (21:06)
[2019-03-12] MEDS: Atorvastatin Calcium 40 MG TAB PO SCH (21:06)
[2019-03-12] MEDS ORDERED: traMADol HCl 50 MG TAB PO SCH (23:15)
[2019-03-13] MEDS: Ondansetron PF 4 MG/2 ML Vial IVP PRN (01:55)
[2019-03-13] MEDS: Morphine ER 15 MG TAB PO PRN (04:26)
[2019-03-13 04:53] LABS: Hemoglobin 12.5 g/dL (14.0-18.0); Platelet Count 271 thou/uL (130-400)
[2019-03-13] MEDS: Aspirin Chewable 81 MG TAB PO SCH (09:57)
[2019-03-13] MEDS: hydrOXYzine Pamoate 25 mg Capsule PO SCH (09:58)
[2019-03-13] MEDS: lamoTRIgine 100 MG TAB PO SCH (10:00)
[2019-03-13] MEDS: levETIRAcetam 500 MG TAB PO SCH (10:01)
[2019-03-13] MEDS: TICAGRELOR 90 MG TABLET PO SCH (10:02)
--- NOTE | 2019-03-13 10:05 | PDOC.PN ---
- Subjective Encounter Start Date: 03/13/19 Encounter Start Time: 10:04 Mr. Batres was seen today in follow-up of Unstable Angina. He does not have any complaints today. - Objective Resuscitation Status - Order Detail: 03/09/19 23:14 Resuscitation Status Routine Resuscitation Status: FULL: Full Resuscitation MAR Reviewed: Yes Vital Signs & Weight: Vital Signs (12 hours) Temp Pulse Resp BP BP Pulse Ox 03/13/19 08:06 97.6 F 77 14 110/70 94 L 03/13/19 04:00 98.1 F 86 18 107/62 92 L 03/12/19 23:20 106 H 105/68 Weight Weight 228 lb 8 oz I&O: 03/12/19 03/13/19 03/14/19 06:59 06:59 06:59 Intake Total 200 Balance 200 Result Diagrams: 03/13/19 04:14 03/13/19 04:14 Additional Labs: Accuchecks 03/12/19 16:32 POC Glucose 125 H Phys Exam - Physical Examination HEENT: PERRLA Respiratory: no wheezing, no rales, no rhonchi, clear to auscultation bilateral Cardiovascular: RRR, no significant murmur, no rub Gastrointestinal: soft, non-tender, no distention, positive bowel sounds Musculoskeletal: no edema, pulses present Dx/Plan (1) Unstable angina Status: Acute (2) Chest pain Code(s): R07.9 - CHEST PAIN, UNSPECIFIED Status: Acute Qualifiers: Chest pain type: unspecified Qualified Code(s): R07.9 - Chest pain, unspecified Comment: No evidence of cardiac etiology, supportive mgmt, d/c tele (3) Dyslipidemia Code(s): E78.5 - HYPERLIPIDEMIA, UNSPECIFIED Status: Chronic Comment: Lipitor 40mg HS (4) Tobacco abuse Code(s): Z72.0 - TOBACCO USE Status: Chronic Comment: Tobacco cessation resources (5) Seizure Code(s): R56.9 - UNSPECIFIED CONVULSIONS Status: Chronic Comment: Pt has a h /o seizure disorder, phenytoin level is therapeutic. Started on keppra, await EEG. - Plan * Unstable Angina- likely from non compliance with Brillinta. * His symptoms have improved- he is therefore stable for discharge home..
--- NOTE | 2019-03-13 10:28 | PRG ---
DATE OF SERVICE: 03/13/2019 SUBJECTIVE: Mr. Batres is doing better today, not having chest pain currently. OBJECTIVE: VITAL SIGNS: Blood pressure 110/70, pulse 70. LUNGS: Clear. CARDIAC: Normal S1, normal S2. ASSESSMENT: 1. Status post bypass surgery. 2. Recent stent implantation at [facility]. 3. The patient had prolonged chest pain yesterday, but actually the troponin levels were lower. PLAN: 1. Home, on aspirin. 2. Ticagrelor (Brilinta). 3. Isosorbide. 4. Atorvastatin 40 mg a day. 5. He will be following up with Dr. Robert Chamorro as an outpatient. Job ID: [id number]
[2019-03-13 12:16] VITALS: BP 115/70; TEMP 98.2
--- NOTE | 2019-03-14 03:13 | DIS ---
DATE OF ADMISSION: 03/09/2019 DATE OF DISCHARGE: 03/13/2019 PRIMARY CARE PHYSICIAN: Arely Wall MD. DISCHARGE DISPOSITION: Home. PRIMARY DISCHARGE DIAGNOSES: 1. Unstable angina. 2. History of seizure disorder. 3. Atrial fibrillation. 4. History of medical noncompliance. DISCHARGE MEDICATIONS: 1. Brilinta 90 mg twice daily. The patient will be receiving samples from Dr. Cabrera's office. 2. Nitrostat 0.4 sublingual p.r.n. 3. Aspirin 81 mg daily. 4. Seroquel 300 mg at bedtime. 5. Dilantin 200 mg twice daily. 6. MS Contin 15 mg twice daily. 7. Keppra 500 mg daily. 8. Lamotrigine 50 mg p.o. daily. 9. Imdur 30 mg daily. 10. p.o. daily. 11. Klonopin 2 mg at bedtime. 12. Amiodarone 100 mg twice daily. CODE STATUS: Full code. ALLERGIES: PENICILLIN, IODINE, SHELLFISH AND SULFA. HOSPITAL COURSE: Mr. Batres is a pleasant 38-year-old gentleman, who presented to the emergency room with complaints of chest pain. He was found to have elevated troponins. He has a known history of coronary artery disease and was admitted to the hospital for unstable angina. His laborer tanbark did not feel that this was an acute NSTEMI or did not feel that it was a myocardial infarction as his troponins are consistently elevated. He was placed on aspirin, Lovenox, Brilinta, as well as a statin to help " "cool him off" and after his symptoms had improved, he was able to be discharged home. His records from Dr. Robert Chamorro were obtained including the cath report to help desk agent Dr. Cabrera in his decision-making process. The patient was known to be noncompliant with Brilinta prior to admission and this is likely what precipitated this acute event. Job ID: [id number]
== END 2019-03-13 12:35 | disposition home or self-care (01) | DRG 303 ==
LOC: SCSER 20:18 → 2NO 21:30
PROVIDERS: ADMIT Hospitalist; ATTEND Hospitalist
DX: I25.110 Atherosclerotic heart disease of native coronary artery with unstable angina pectoris (principal); E11.9 Type 2 diabetes mellitus without complications; I48.2 Chronic atrial fibrillation; F41.9 Anxiety disorder, unspecified; F32.9 Major depressive disorder, single episode, unspecified; E78.5 Hyperlipidemia, unspecified; G40.909 Epilepsy, unspecified, not intractable, without status epilepticus; E66.9 Obesity, unspecified; F17.290 Nicotine dependence, other tobacco product, uncomplicated; E78.00 Pure hypercholesterolemia, unspecified; Z95.1 Presence of aortocoronary bypass graft; Z79.82 Long term (current) use of aspirin; Z88.0 Allergy status to penicillin; Z79.899 Other long term (current) drug therapy; Z91.013 Allergy to seafood; Z91.041 Radiographic dye allergy status; Z88.2 Allergy status to sulfonamides; Z91.14 Patient's other noncompliance with medication regimen
CPT/HCPCS: 36415; 36416; 80048; 80053; 80061; 82553; 82565; 84484; 85007; 85014; 85018; 85025; 85027; 85049; 93005; 93010; 96372; 96374; J1650; J1885; J2270; J2405; Q0162; Q0177

== ENCOUNTER 2019-03-14 22:09 | Emergency (ER) | payer SELFPAY ==
[2019-03-14] MEDS ORDERED: Nitroglycerin 0.4 MG TAB 1 EACH ONE (22:45)
[2019-03-14 23:02] LABS: #Basophils 0.1 thou/uL (0.0-0.2); #Eosinphils 0.5 thou/uL (0.0-0.7); #Lymphocytes 2.4 thou/uL (1.20-3.40); #Monocytes 1.6 thou/uL (0.11-0.59); #Neutrophils 13.1 thou/uL (1.40-6.50); %Basophils 0.5 % (0.0-1.0); %Eosinophils 2.7 % (0.0-10.0); %Lymphocytes 13.5 % (21.0-51.0); %Monocytes 9.1 % (0.0-10.0); %Neutrophils 74.2 % (42.0-75.0); Hemoglobin 13.8 g/dL (14.0-18.0); Mean Corpuscular HGB CONC 34.1 g/dL (32.0-36.0); Mean Corpuscular Volume 91.1 fL (78.0-98.0); Mean Platelet Volume 7.2 fL (7.4-10.4); Platelet Count 296 thou/uL (130-400); RBC Distribution Width 12.3 % (11.5-14.5); Red Blood Cell (RBC) Count 4.44 mill/uL (4.70-6.10); White Blood Cell (WBC) Count 17.7 thou/uL (4.8-10.8)
[2019-03-14 23:23] LABS: ALT (SGPT) 31 U/L (8-55); AST (SGOT) 23 U/L (5-34); Albumin 4.5 g/dL (3.5-5.0); Alkaline Phosphatase 74 U/L (40-150); Anion Gap 16 mmol/L (10-20); BUN (Urea Nitrogen) 9 mg/dL (8.9-20.6); Bilirubin, Total 0.3 mg/dL (0.2-1.2); Calc. Creatinine Clearance 0 mL/min (70-130); Calcium 9.8 mg/dL (7.8-10.44); Carbon Dioxide 21 mmol/L (22-29); Chloride 105 mmol/L (98-107); Estimated GFR-MDRD 86; Globulin 2.8 g/dL (2.4-3.5); Glucose 87 mg/dL (70-105); Potassium 4.3 mmol/L (3.5-5.1); Protein, Total 7.3 g/dL (6.0-8.3); Sodium 138 mmol/L (136-145)
== END 2019-03-14 23:52 | disposition home or self-care (01) ==
LOC: ERS 22:09
DX: R07.89 Other chest pain (principal); E11.9 Type 2 diabetes mellitus without complications; I25.2 Old myocardial infarction; G40.909 Epilepsy, unspecified, not intractable, without status epilepticus; I10 Essential (primary) hypertension; F17.210 Nicotine dependence, cigarettes, uncomplicated; Z79.899 Other long term (current) drug therapy
CPT/HCPCS: 36416; 80053; 84484; 85025; 93005

== ENCOUNTER 2019-03-19 16:23 | Emergency (ER) | payer SELFPAY ==
[2019-03-19 16:47] LABS: #Basophils 0.1 thou/uL (0.0-0.2); #Eosinphils 0.6 thou/uL (0.0-0.7); #Lymphocytes 3.4 thou/uL (1.20-3.40); #Neutrophils 8.1 thou/uL (1.40-6.50); %Basophils 0.9 % (0.0-1.0); %Eosinophils 4.4 % (0.0-10.0); %Monocytes 7.3 % (0.0-10.0); %Neutrophils 61.4 % (42.0-75.0); Hemoglobin 13.7 g/dL (14.0-18.0); Mean Corpuscular HGB CONC 34.2 g/dL (32.0-36.0); Mean Corpuscular Hemoglobin 31.3 pg (27.0-31.0); Mean Corpuscular Volume 91.6 fL (78.0-98.0); Mean Platelet Volume 7.1 fL (7.4-10.4); Platelet Count 367 thou/uL (130-400); RBC Distribution Width 12.3 % (11.5-14.5); Red Blood Cell (RBC) Count 4.38 mill/uL (4.70-6.10); White Blood Cell (WBC) Count 13.1 thou/uL (4.8-10.8)
[2019-03-19 17:10] LABS: ALT (SGPT) 26 U/L (8-55); AST (SGOT) 18 U/L (5-34); Albumin 4.2 g/dL (3.5-5.0); Alkaline Phosphatase 70 U/L (40-150); Anion Gap 14 mmol/L (10-20); BUN (Urea Nitrogen) 13 mg/dL (8.9-20.6); Bilirubin, Total 0.2 mg/dL (0.2-1.2); Calc. Creatinine Clearance 0 mL/min (70-130); Calcium 9.9 mg/dL (7.8-10.44); Carbon Dioxide 22 mmol/L (22-29); Chloride 110 mmol/L (98-107); Estimated GFR-MDRD 77; Globulin 3.2 g/dL (2.4-3.5); Glucose 77 mg/dL (70-105); Potassium 4.2 mmol/L (3.5-5.1); Protein, Total 7.4 g/dL (6.0-8.3); Sodium 142 mmol/L (136-145)
--- NOTE | 2019-03-19 17:16 | RAD ---
CHEST ONE VIEW: 03/19/19 HISTORY: Chest pain. COMPARISON: Comparison radiograph 03/03/19. FINDINGS: The lungs are clear. No pneumothorax or effusion. The cardiac silhouette and mediastinal contour is within normal limits. Multiple midline sternotomy wires. No acute osseous abnormality. IMPRESSION: No acute intrathoracic abnormality. POS: T[facility]
[2019-03-19] MEDS ORDERED: Acetaminophen 500 MG TAB ONE (17:18)
--- NOTE | 2019-03-22 15:14 | EKG ---
Test Reason : CP Blood Pressure : / mmHG Vent. Rate : 091 BPM Atrial Rate : 091 BPM P-R Int : 156 ms QRS Dur : 088 ms QT Int : 368 ms P-R-T Axes : 048 070 074 degrees QTc Int : 452 ms Normal sinus rhythm Normal ECG Confirmed by KIZZY VELAZCO ([id number]), film editor supervisor GREGG ELIZONDO ([id number]) on 03/22/2019 3:13:35 PM Referred By: MD VELAZCO Confirmed By:KIZZY VELAZCO
== END 2019-03-19 17:47 | disposition home or self-care (01) ==
LOC: ERS 16:23
DX: R07.9 Chest pain, unspecified (principal); I25.2 Old myocardial infarction; E11.9 Type 2 diabetes mellitus without complications; I10 Essential (primary) hypertension; G40.909 Epilepsy, unspecified, not intractable, without status epilepticus; F17.210 Nicotine dependence, cigarettes, uncomplicated; Z79.899 Other long term (current) drug therapy
CPT/HCPCS: 36415; 71045; 80053; 84484; 85025; 93005

== ENCOUNTER 2019-03-20 19:57 | Observation (INO) | payer SELFPAY ==
[2019-03-20] MEDS ORDERED: Ketorolac Tromethamine 30 MG/ML VIAL ONE (20:26)
[2019-03-20 20:29] LABS: #Basophils 0.2 thou/uL (0.0-0.2); #Eosinphils 0.6 thou/uL (0.0-0.7); #Lymphocytes 3.4 thou/uL (1.20-3.40); #Monocytes 0.7 thou/uL (0.11-0.59); #Neutrophils 8.4 thou/uL (1.40-6.50); %Basophils 1.3 % (0.0-1.0); %Eosinophils 4.4 % (0.0-10.0); %Lymphocytes 25.6 % (21.0-51.0); %Neutrophils 63.7 % (42.0-75.0); Hemoglobin 13.4 g/dL (14.0-18.0); Mean Corpuscular HGB CONC 34.6 g/dL (32.0-36.0); Mean Corpuscular Hemoglobin 30.8 pg (27.0-31.0); Mean Platelet Volume 7.3 fL (7.4-10.4); Platelet Count 370 thou/uL (130-400); RBC Distribution Width 12.6 % (11.5-14.5); Red Blood Cell (RBC) Count 4.34 mill/uL (4.70-6.10); White Blood Cell (WBC) Count 13.1 thou/uL (4.8-10.8)
[2019-03-20 20:49] LABS: ALT (SGPT) 25 U/L (8-55); AST (SGOT) 16 U/L (5-34); Alkaline Phosphatase 59 U/L (40-150); Anion Gap 14 mmol/L (10-20); BUN (Urea Nitrogen) 12 mg/dL (8.9-20.6); Bilirubin, Total 0.2 mg/dL (0.2-1.2); CK (CPK) 58 U/L (30-200); Calc. Creatinine Clearance 0 mL/min (70-130); Calcium 9.4 mg/dL (7.8-10.44); Carbon Dioxide 22 mmol/L (22-29); Chloride 108 mmol/L (98-107); Estimated GFR-MDRD 73; Globulin 3.2 g/dL (2.4-3.5); Glucose 115 mg/dL (70-105); Potassium 3.9 mmol/L (3.5-5.1); Protein, Total 7.2 g/dL (6.0-8.3); Sodium 140 mmol/L (136-145)
[2019-03-20 21:55] VITALS: BMI 35.5
[2019-03-20] MEDS ORDERED: Morphine 4 MG/ML VIAL SLOW IVP SCH (22:30)
[2019-03-20] MEDS ORDERED: Ondansetron PF 4 MG/2 ML Vial IVP SCH (22:30)
[2019-03-20 23:28] LABS: Troponin I Less than 0.010 ng/mL (< 0.028)
[2019-03-21] MEDS ORDERED: Nitroglycerin 0.4 MG TAB (25 Tab Bottle) SL PRN (00:10)
[2019-03-21] MEDS ORDERED: clonazePAM 1 MG TAB PO SCH ×2 (00:30→21:00)
[2019-03-21] MEDS ORDERED: TICAGRELOR 90 MG TABLET PO SCH ×2 (00:30→09:00)
[2019-03-21] MEDS: Acetaminophen 325 MG TAB PO PRN ×3 (01:02→14:04)
[2019-03-21] MEDS: Morphine ER 15 MG TAB PO PRN ×2 (02:06→09:36)
[2019-03-21] MEDS ORDERED: Sodium Chloride 0.9% 500 ML IV SCH (02:15)
[2019-03-21 02:43] LABS: Troponin I Less than 0.010 ng/mL (< 0.028)
[2019-03-21] MEDS ORDERED: Aspirin 325 MG TAB PO SCH (09:00)
[2019-03-21 13:12] VITALS: BP 117/65; TEMP 97.5
[2019-03-21] MEDS ORDERED: Morphine 4 MG/ML VIAL SLOW IVP SCH (15:30)
--- NOTE | 2019-03-21 19:04 | SS ---
DATE OF ADMISSION: 03/20/2019 DATE OF DISCHARGE: 03/21/2019 CHIEF COMPLAINT ON ADMISSION: Chest pain. DISCHARGE DIAGNOSES: 1. Noncardiac chest pain, acute coronary syndrome ruled out. 2. History of coronary artery disease, status post CABG, status post recent stent on March 05, 2019 to the [place] circumflex. 3. Chronic pain syndrome, on prescription opioids/MS Contin. 4. Hypertension. 5. History of noncompliance. BRIEF HOSPITAL COURSE: The patient is an unfortunate 38-year-old gentleman with past medical history significant for severe triple-vessel coronary artery disease along with chronic pain syndrome. The patient has undergone a CABG in the past, although it was felt prior to bypass that all of his chest pain was not angina. Since bypass, the patient has continued to have multiple hospitalizations with complaints of chest pain. The patient was evaluated at [facility], and underwent left heart catheterization by Dr. Robert Chamorro on March 05, 2019, which revealed patent grafts to the distal RCA and OM, along with patent WATERS to the LAD. He did have a 90% stenosis of his [place] circumflex and underwent successful PTCA and stenting at that time. The patient has still continued to have some issues with compliance and has had several readmissions for chest pain since that time. He presented to the emergency room yesterday evening with complaints of chest pain that was sharp and stabbing in nature that radiated to the back. His chest pain was not relieved with nitroglycerin. It was not exertional. It was relieved with his MS Contin partially. The patient exhibited no ischemic ST or T-wave changes on his EKG. Serial troponin was negative x3. ACS was ruled out in this patient. His pain was controlled with his MS Contin. Vital signs were stable throughout his stay. He did not exhibit any chest pain during this hospitalization that was consistent with angina, and as mentioned, ACS was ruled out. REVIEW OF SYSTEMS: A 12-point review of systems was performed and is negative except as stated above. DISCHARGE MEDICATIONS: 1. Brilinta 90 mg 1 tablet p.o. b.i.d. 2. Aspirin 81 mg 1 tablet p.o. daily. 3. Clonazepam 2 mg p.o. at bedtime. 4. Hydroxyzine 150 mg daily. 5. Imdur 30 mg daily. 6. Lamotrigine 50 mg p.o. daily. 7. Keppra 500 mg p.o. daily. 8. MS Contin 15 mg p.o. b.i.d. p.r.n. 9. Dilantin 200 mg p.o. b.i.d. 10. Seroquel 500 mg p.o. at bedtime. 11. P.r.n. albuterol inhaler. 12. Nitroglycerin 0.4 mg sublingual q.5 p.r.n. New medications include Lipitor 10 mg p.o. at bedtime. Amiodarone was listed on the patient's home med list, but this has been discontinued, as Dr. Cabrera also discontinued this medication several days ago when the patient was here. No evidence of atrial fibrillation. DISCHARGE DISPOSITION: Home. DISCHARGE CONDITION: Stable. FOLLOWUP AND DISCHARGE INSTRUCTIONS: The patient will continue dual anti-platelet therapy along with his statin. I have recommended followup with his painter and his primary care physician. He does have a followup scheduled with Dr. Robert Chamorro of Cardiology on March 25, that he states he will keep. I have counseled the patient heavily on aggressive risk factor modification for his coronary artery disease. The patient will be discharged in good condition today. Job ID: [id number]
--- NOTE | 2019-03-22 09:19 | EKG ---
Test Reason : Blood Pressure : / mmHG Vent. Rate : 089 BPM Atrial Rate : 090 BPM P-R Int : 150 ms QRS Dur : 092 ms QT Int : 396 ms P-R-T Axes : 055 081 075 degrees QTc Int : 481 ms Normal sinus rhythm Prolonged QT Abnormal ECG When compared with ECG of 19-MAR-2019 16:36, (Unconfirmed) No significant change was found Confirmed by MADDIE MANRIQUEZ, . SJuan ([id number]) on 03/22/2019 9:19:25 AM Referred By: Confirmed By:DR. Juliana PERKINS MD
== END 2019-03-21 16:11 | disposition home or self-care (01) ==
LOC: SCSER 19:57 → 2SW 20:20
PROVIDERS: ADMIT Hospitalist; ATTEND Hospitalist
DX: R07.89 Other chest pain (principal); I25.10 Atherosclerotic heart disease of native coronary artery without angina pectoris; I10 Essential (primary) hypertension; E78.00 Pure hypercholesterolemia, unspecified; G89.4 Chronic pain syndrome; I25.2 Old myocardial infarction; F17.210 Nicotine dependence, cigarettes, uncomplicated; Z88.0 Allergy status to penicillin; Z88.2 Allergy status to sulfonamides; Z79.82 Long term (current) use of aspirin; Z79.899 Other long term (current) drug therapy; Z91.013 Allergy to seafood; Z91.041 Radiographic dye allergy status; Z95.1 Presence of aortocoronary bypass graft
CPT/HCPCS: 36415; 80053; 82550; 83880; 84484; 85025; 93005; 96374; 96375; 96376; G0378; J1885; J2270; J2405

== ENCOUNTER 2019-03-21 23:10 | Emergency (ER) | payer SELFPAY | END 2019-03-22 00:14 | disposition home or self-care (01) | LOC: SCSER 23:10 | DX: I25.10 Atherosclerotic heart disease of native coronary artery without angina pectoris (principal); G89.29 Other chronic pain; I25.2 Old myocardial infarction; G40.909 Epilepsy, unspecified, not intractable, without status epilepticus; E11.9 Type 2 diabetes mellitus without complications; I10 Essential (primary) hypertension; K50.90 Crohn's disease, unspecified, without complications; F17.210 Nicotine dependence, cigarettes, uncomplicated ==

== ENCOUNTER 2019-03-24 22:02 | Emergency (ER) | payer SELFPAY ==
--- NOTE | 2019-03-25 08:21 | ULT ---
PRELIMINARY REPORT/[facility]/EMERGENCY AFTER HOURS PROCEDURE: EXAM: CT Neck With Contrast EXAM DATE/TIME: 03/25/2019 12:27 AM CLINICAL HISTORY: 12 years old, female; Neck pain and painful swallowing; Patient HX: Dental pain-prescribed meds today but report they are ineffective. TECHNIQUE: Imaging protocol: Axial computed tomography images of the neck with intravenous contrast. Coronal and sagittal reformatted images were created and reviewed. COMPARISON: No relevant prior studies available. FINDINGS: Nasopharynx: Normal. Oropharynx: Normal. No significant tonsillar enlargement. Hypopharynx: Normal. Larynx: Normal. Normal epiglottis. Retropharyngeal space: Normal. Submandibular/Parotid glands: Normal. Glands are normal in size. Thyroid: Normal. No enlarged or calcified nodules. Lymph nodes: Normal. No lymphadenopathy. Trachea: Visualized trachea is unremarkable. Lungs: Normal as visualized. Vasculature: No acute findings. Bones/joints: Normal. No acute fracture. No definite mandibular bone abscess/osteomyelitis. Soft tissues: There is rim-enhancing collection along the inner margin of the RIGHT mandibular ramus measuring 13 x 4 x 18 mm suspicious for soft tissue abscess. Mild surrounding inflammatory stranding is noted. IMPRESSION: RIGHT perimandibular rim-enhancing collection along the inner/inferior surface of the RIGHT mandibula r body suspicious for soft tissue abscess. Thank you for allowing us to participate in the care of your patient. Dictated and Authenticated by: Fortunato Howard MD 03/25/2019 1:54 AM Central Time ([place] & [place]) FINAL REPORT SCROTAL ULTRASOUND INCLUDING COLOR AND SPECTRAL DOPPLER IMAGING: EMERGENCY AFTER HOURS EXAM TIME: 12:10 a.m. DATE: 03/25/2019. FINDINGS: No itnratesticular mass or testicular torsion. Possible slight increased vascularity in the right ep ididymal head which could represent early epididymitis, correlate clinically. This report is in agreement with the preliminary report. POS: [facility]
== END 2019-03-25 00:35 | disposition home or self-care (01) ==
LOC: SCSER 22:02
DX: N50.811 Right testicular pain (principal); N50.812 Left testicular pain; G89.29 Other chronic pain; F17.210 Nicotine dependence, cigarettes, uncomplicated; G40.909 Epilepsy, unspecified, not intractable, without status epilepticus; E11.9 Type 2 diabetes mellitus without complications; K50.90 Crohn's disease, unspecified, without complications
CPT/HCPCS: 76870; 93976

== ENCOUNTER 2019-03-31 19:01 | Emergency (ER) | payer SELFPAY ==
[2019-03-31 19:52] LABS: Bilirubin Negative (Negative); Blood, Urine Negative (Negative); Clarity Clear (Clear); Glucose, Urine (Dipstick) Negative (Negative); Leukocyte Negative (Negative); Nitrite Negative (Negative); Protein, Urine (Dipstick) Trace mg/dL (Neg-Trace); Specific Gravity, Urine 1.032 (1.002-1.036); Urobilinogen 0.2 mg/dL (0.2-1.0); pH, Urine 5.5 (5.0-9.0)
[2019-03-31] MEDS ORDERED: Ketorolac Tromethamine 30 MG/ML VIAL ONE (20:40)
--- NOTE | 2019-03-31 20:59 | RAD ---
PA AND LATERAL CHEST: 03/31/19 History: cough. COMPARISON: 01/11/19 exam. Heart size is within normal limits with postop sternotomy changes. The lungs are clear of infiltrativ e process. No significant bony findings. IMPRESSION: No active intrathoracic disease. POS: [facility]
[2019-03-31 21:23] LABS: #Basophils 0.2 thou/uL (0.0-0.2); #Eosinphils 0.5 thou/uL (0.0-0.7); #Lymphocytes 3.1 thou/uL (1.20-3.40); #Monocytes 0.7 thou/uL (0.11-0.59); #Neutrophils 9.4 thou/uL (1.40-6.50); %Basophils 1.1 % (0.0-1.0); %Eosinophils 3.7 % (0.0-10.0); %Lymphocytes 22.1 % (21.0-51.0); %Monocytes 5.2 % (0.0-10.0); %Neutrophils 67.9 % (42.0-75.0); Hemoglobin 14.5 g/dL (14.0-18.0); Mean Corpuscular HGB CONC 35.6 g/dL (32.0-36.0); Mean Corpuscular Hemoglobin 31.2 pg (27.0-31.0); Mean Corpuscular Volume 87.8 fL (78.0-98.0); Mean Platelet Volume 8.2 fL (7.4-10.4); Platelet Count 314 thou/uL (130-400); Red Blood Cell (RBC) Count 4.64 mill/uL (4.70-6.10); White Blood Cell (WBC) Count 13.9 thou/uL (4.8-10.8)
[2019-03-31 21:34] LABS: Anion Gap 15 mmol/L (10-20); BUN (Urea Nitrogen) 16 mg/dL (8.9-20.6); Calc. Creatinine Clearance 0 mL/min (70-130); Calcium 10.3 mg/dL (7.8-10.44); Carbon Dioxide 23 mmol/L (22-29); Chloride 106 mmol/L (98-107); Estimated GFR-MDRD 68; Glucose 89 mg/dL (70-105); Potassium 4.2 mmol/L (3.5-5.1); Sodium 140 mmol/L (136-145)
[2019-03-31] MEDS ORDERED: Acetaminophen 500 MG TAB ONE (21:52)
== END 2019-03-31 21:55 | disposition home or self-care (01) ==
LOC: SCSER 19:01
DX: J20.9 Acute bronchitis, unspecified (principal); E11.9 Type 2 diabetes mellitus without complications; G40.909 Epilepsy, unspecified, not intractable, without status epilepticus; K50.90 Crohn's disease, unspecified, without complications; F17.210 Nicotine dependence, cigarettes, uncomplicated; Z79.891 Long term (current) use of opiate analgesic
CPT/HCPCS: 36415; 71046; 80048; 81003; 83605; 85025; 93005; J1885

== ENCOUNTER 2019-04-09 16:30 | Emergency (ER) | payer SELFPAY ==
[2019-04-09] MEDS ORDERED: Water For Inject, Bacteriostat 30 ML ONE (16:55)
[2019-04-09] MEDS ORDERED: methylPREDNISolone Sod Succ/PF 125 MG/2 ML VIAL ONE (16:55)
[2019-04-09 16:58] LABS: #Basophils 0.1 thou/uL (0.0-0.2); #Lymphocytes 2.5 thou/uL (1.20-3.40); #Monocytes 0.2 thou/uL (0.11-0.59); #Neutrophils 7.8 thou/uL (1.40-6.50); %Basophils 0.6 % (0.0-1.0); %Eosinophils 0.3 % (0.0-10.0); %Lymphocytes 23.2 % (21.0-51.0); %Monocytes 2.1 % (0.0-10.0); %Neutrophils 73.7 % (42.0-75.0); Hemoglobin 15.2 g/dL (14.0-18.0); Mean Corpuscular HGB CONC 33.8 g/dL (32.0-36.0); Mean Corpuscular Hemoglobin 30.1 pg (27.0-31.0); Mean Platelet Volume 7.7 fL (7.4-10.4); Platelet Count 325 thou/uL (130-400); RBC Distribution Width 12.2 % (11.5-14.5); Red Blood Cell (RBC) Count 5.06 mill/uL (4.70-6.10); White Blood Cell (WBC) Count 10.6 thou/uL (4.8-10.8)
--- NOTE | 2019-04-09 17:14 | RAD ---
Chest one view HISTORY: Chest pain. COMPARISON: 03/31/2019. FINDINGS: Cardiac silhouette is magnified by projection. Pulmonary vasculature is unremarkable. Media stinum is midline with postoperative changes. No lobar consolidation or evidence of pneumothorax. IMPRESSION: No active cardiopulmonary abnormalities are demonstrated.
[2019-04-09 17:15] LABS: ALT (SGPT) 33 U/L (8-55); AST (SGOT) 21 U/L (5-34); Albumin 4.5 g/dL (3.5-5.0); Alkaline Phosphatase 80 U/L (40-150); Anion Gap 15 mmol/L (10-20); BUN (Urea Nitrogen) 9 mg/dL (8.9-20.6); Bilirubin, Total 0.3 mg/dL (0.2-1.2); CK (CPK) 71 U/L (30-200); Calc. Creatinine Clearance 0 mL/min (70-130); Calcium 9.8 mg/dL (7.8-10.44); Carbon Dioxide 21 mmol/L (22-29); Chloride 108 mmol/L (98-107); Estimated GFR-MDRD Greater than 90; Globulin 3.4 g/dL (2.4-3.5); Glucose 118 mg/dL (70-105); Lipase 20 U/L (8-78); Protein, Total 7.9 g/dL (6.0-8.3); Sodium 140 mmol/L (136-145)
[2019-04-09 18:55] LABS: Troponin I Less than 0.010 ng/mL (< 0.028)
== END 2019-04-09 19:08 | disposition home or self-care (01) ==
LOC: SCSER 16:30
DX: J42 Unspecified chronic bronchitis (principal); I25.2 Old myocardial infarction; E11.9 Type 2 diabetes mellitus without complications; I10 Essential (primary) hypertension; G40.909 Epilepsy, unspecified, not intractable, without status epilepticus; Z79.899 Other long term (current) drug therapy
CPT/HCPCS: 71045; 80053; 82550; 83690; 83880; 84484; 85025; 93005; 94760; 96374; J2930; J7620

== ENCOUNTER 2019-04-10 21:57 | Emergency (ER) | payer SELFPAY | END 2019-04-10 22:51 | disposition home or self-care (01) | LOC: SCSER 21:57 | DX: J20.9 Acute bronchitis, unspecified (principal); I25.2 Old myocardial infarction; E11.9 Type 2 diabetes mellitus without complications; I10 Essential (primary) hypertension; F17.210 Nicotine dependence, cigarettes, uncomplicated; Z79.52 Long term (current) use of systemic steroids; Z79.899 Other long term (current) drug therapy | CPT/HCPCS: 93005 ==

== ENCOUNTER 2019-04-20 22:02 | Emergency (ER) | payer SELFPAY ==
[2019-04-20] MEDS ORDERED: Ketorolac Tromethamine 60 MG/2 ML VIAL ONE (22:20)
[2019-04-20 22:24] LABS: Bilirubin Negative (Negative); Blood, Urine Negative (Negative); Clarity Slightly Cloudy (Clear); Glucose, Urine (Dipstick) Negative (Negative); Leukocyte Trace (Negative); Nitrite Negative (Negative); Protein, Urine (Dipstick) Negative (Neg-Trace); Urobilinogen 0.2 mg/dL (Less than 2)
[2019-04-20 22:27] LABS: Bacteria/HPF 1+ HPF (None Seen); RBC/HPF 0-3 HPF (0-3); WBC/HPF 0-3 HPF (0-3)
[2019-04-20] MEDS ORDERED: Nitroglycerin 0.4 MG TAB (25 Tab Bottle) ONE (22:44)
[2019-04-20] MEDS ORDERED: Nitroglycerin 4.9 GM Bottle ONE (22:44)
[2019-04-20 23:17] LABS: #Basophils 0.1 thou/uL (0.0-0.2); #Eosinphils 0.4 thou/uL (0.0-0.7); #Lymphocytes 3.4 thou/uL (1.20-3.40); #Monocytes 0.3 thou/uL (0.11-0.59); #Neutrophils 4.9 thou/uL (1.40-6.50); %Eosinophils 4.2 % (0.0-10.0); %Lymphocytes 37.2 % (21.0-51.0); %Monocytes 3.7 % (0.0-10.0); %Neutrophils 53.9 % (42.0-75.0); Hemoglobin 13.7 g/dL (14.0-18.0); Mean Corpuscular HGB CONC 34.7 g/dL (32.0-36.0); Mean Corpuscular Hemoglobin 30.3 pg (27.0-31.0); Mean Corpuscular Volume 87.4 fL (78.0-98.0); Mean Platelet Volume 6.6 fL (7.4-10.4); Platelet Count 297 thou/uL (130-400); RBC Distribution Width 12.1 % (11.5-14.5); Red Blood Cell (RBC) Count 4.51 mill/uL (4.70-6.10); White Blood Cell (WBC) Count 9.1 thou/uL (4.8-10.8)
[2019-04-20 23:28] LABS: Anion Gap 14 mmol/L (10-20); BUN (Urea Nitrogen) 11 mg/dL (8.9-20.6); Calc. Creatinine Clearance 0 mL/min (70-130); Calcium 9.2 mg/dL (7.8-10.44); Carbon Dioxide 23 mmol/L (22-29); Chloride 107 mmol/L (98-107); Estimated GFR-MDRD 81; Glucose 100 mg/dL (70-105); Potassium 3.7 mmol/L (3.5-5.1); Sodium 140 mmol/L (136-145)
== END 2019-04-20 23:56 | disposition home or self-care (01) ==
LOC: SCSER 22:02
DX: N50.82 Scrotal pain (principal); G89.29 Other chronic pain; R07.9 Chest pain, unspecified; E11.9 Type 2 diabetes mellitus without complications; I10 Essential (primary) hypertension; F17.210 Nicotine dependence, cigarettes, uncomplicated; Z79.899 Other long term (current) drug therapy
CPT/HCPCS: 36415; 80048; 81003; 81015; 84484; 85025; 93005; 96372; J1885

== ENCOUNTER 2019-05-07 23:15 | Emergency (ER) | payer SELFPAY ==
--- NOTE | 2019-05-07 23:56 | RAD ---
AP CHEST: 05/07/19 HISTORY: Chest pain. Lung novak are clear. No infiltrate. Vascular markings upper normal but stable. Heart size upper no rmal and stable. Postop sternotomy changes. IMPRESSION: No acute finding. No interval change from recent exam of 04/09/19. POS: [facility]
[2019-05-08 00:01] LABS: #Basophils 0.1 thou/uL (0.0-0.2); #Eosinphils 0.6 thou/uL (0.0-0.7); #Lymphocytes 3.5 thou/uL (1.20-3.40); #Monocytes 1.2 thou/uL (0.11-0.59); %Basophils 0.7 % (0.0-1.0); %Eosinophils 4.4 % (0.0-10.0); %Neutrophils 59.9 % (42.0-75.0); Hemoglobin 13.3 g/dL (14.0-18.0); Mean Corpuscular HGB CONC 34.4 g/dL (32.0-36.0); Mean Corpuscular Volume 90.1 fL (78.0-98.0); Mean Platelet Volume 7.4 fL (7.4-10.4); Platelet Count 294 thou/uL (130-400); RBC Distribution Width 12.1 % (11.5-14.5); Red Blood Cell (RBC) Count 4.29 mill/uL (4.70-6.10); White Blood Cell (WBC) Count 13.3 thou/uL (4.8-10.8)
[2019-05-08] MEDS ORDERED: Nitroglycerin 2% Ointment 1 INCH/1 GM Packet ONE (00:08)
[2019-05-08 00:25] LABS: ALT (SGPT) 15 U/L (8-55); AST (SGOT) 12 U/L (5-34); Albumin 4.1 g/dL (3.5-5.0); Alkaline Phosphatase 76 U/L (40-150); Anion Gap 13 mmol/L (10-20); BUN (Urea Nitrogen) 8 mg/dL (8.9-20.6); Bilirubin, Total 0.2 mg/dL (0.2-1.2); Calc. Creatinine Clearance 0 mL/min (70-130); Calcium 9.7 mg/dL (7.8-10.44); Carbon Dioxide 24 mmol/L (22-29); Chloride 105 mmol/L (98-107); Estimated GFR-MDRD Greater than 90; Globulin 2.6 g/dL (2.4-3.5); Glucose 80 mg/dL (70-105); Lipase 27 U/L (8-78); Potassium 4.3 mmol/L (3.5-5.1); Protein, Total 6.7 g/dL (6.0-8.3); Sodium 138 mmol/L (136-145)
[2019-05-08 03:20] LABS: Troponin I Less than 0.010 ng/mL (< 0.028)
--- NOTE | 2019-05-08 07:44 | CT ---
PRELIMINARY REPORT/[facility]/EMERGENCY AFTER HOURS PROCEDURE: EXAM: CT Head Without Contrast EXAM DATE/TIME: 05/08/2019 1:03 AM CLINICAL HISTORY: 38 years old, male; Dizziness; Patient HX: 38 y/o m, with h/o cad, mi, cabg, presents to ED via [place] c/p cp. PT notes that pain began while he was walking this evening. At time of onset of pain , PT sat down and called 911 for transport to ED. Pt's last cardiac workup approx 18 mos ago. His mos t recent cath x 3-4 mos ago, with PT noting cardiac stent placed at that time. Per EMS, vss en route, unremarkable 12 lead. Additionally, PT reports feeling ill over the last few days, during which time PT experienced n/v, including a few episodes of hematemesis. He describes bld as bright red in q uality. No h/o esophageal varices, gastric ulcer. TECHNIQUE: Imaging protocol: Computed tomography images of the head without contrast. COMPARISON: No relevant prior studies available. FINDINGS: Brain: No acute findings. No hemorrhage. No significant white matter disease. No edema. Ventricles: No acute findings. No ventriculomegaly. Bones/joints: No acute fracture. Sinuses: Mild ethmoid sinus mucosal thickening. Mastoid air cells: No acute findings. No mastoid effusion. Soft tissues: No acute findings. IMPRESSION: No acute intracranial abnormality. Thank you for allowing us to participate in the care of your patient. Dictated and Authenticated by: Nii Irby MD 05/08/2019 2:13 AM Central Time ([place] & [place]) FINAL REPORT EMERGENCY AFTER HOURS CT BRAIN WITHOUT CONTRAST: Date: 05/08/19 COMPARISON: 08/03/18. FINDINGS/IMPRESSION: I agree with the findings and impression given in the preliminary report per [facility] physician. No evide nce of acute intracranial abnormality.
== END 2019-05-08 03:05 | disposition left against medical advice (07) ==
LOC: ERS 23:15
DX: K92.2 Gastrointestinal hemorrhage, unspecified (principal); R07.9 Chest pain, unspecified; I25.2 Old myocardial infarction; E11.9 Type 2 diabetes mellitus without complications; I10 Essential (primary) hypertension; I25.10 Atherosclerotic heart disease of native coronary artery without angina pectoris; F17.210 Nicotine dependence, cigarettes, uncomplicated; Z79.899 Other long term (current) drug therapy; Z79.01 Long term (current) use of anticoagulants
CPT/HCPCS: 36415; 70450; 71045; 80053; 83690; 84484; 85025; 93005

== ENCOUNTER 2019-05-08 21:19 | Emergency (ER) | payer SELFPAY ==
[2019-05-08] MEDS ORDERED: diphenhydrAMINE 25 MG CAP ONE (21:48)
[2019-05-08 23:15] LABS: Bilirubin Negative (Negative); Blood, Urine Negative (Negative); Clarity Slightly Cloudy (Clear); Glucose, Urine (Dipstick) Negative (Negative); Leukocyte Negative (Negative); Nitrite Negative (Negative); Protein, Urine (Dipstick) Negative (Neg-Trace); Urobilinogen 0.2 mg/dL (Less than 2)
--- NOTE | 2019-05-08 23:17 | RAD ---
TWO VIEW CHEST: 05/08/19 HISTORY: Tachycardia. COMPARISON: 03/31/19. Lung novak appear clear of infiltrate. Heart size is upper normal and stable. Postop sternotomy beavers ges are noted. No evidence of vascular congestion. Mild increased interstitial markings appear stable . IMPRESSION: No acute process. POS: [facility]
[2019-05-08] MEDS ORDERED: Acetaminophen 500 MG TAB ONE (23:27)
[2019-05-08 23:29] LABS: ALT (SGPT) 18 U/L (8-55); AST (SGOT) 13 U/L (5-34); Albumin 3.9 g/dL (3.5-5.0); Alkaline Phosphatase 72 U/L (40-150); Anion Gap 14 mmol/L (10-20); BUN (Urea Nitrogen) 9 mg/dL (8.9-20.6); Bilirubin, Total 0.3 mg/dL (0.2-1.2); Calc. Creatinine Clearance 0 mL/min (70-130); Calcium 9.6 mg/dL (7.8-10.44); Carbon Dioxide 24 mmol/L (22-29); Chloride 106 mmol/L (98-107); Estimated GFR-MDRD 84; Globulin 3.2 g/dL (2.4-3.5); Glucose 105 mg/dL (70-105); Protein, Total 7.1 g/dL (6.0-8.3); Sodium 140 mmol/L (136-145)
[2019-05-08 23:31] LABS: Eosinophils 1 % (0-10); Hemoglobin 13.6 g/dL (14.0-18.0); Lymphocytes 27 % (21-51); MDiff Complete? YES; Mean Corpuscular HGB CONC 34.4 g/dL (32.0-36.0); Mean Corpuscular Hemoglobin 30.8 pg (27.0-31.0); Mean Corpuscular Volume 89.6 fL (78.0-98.0); Mean Platelet Volume 7.7 fL (7.4-10.4); Monocytes 5 % (0-10); Neutrophil 67 % (42-75); Platelet Count 289 thou/uL (130-400); RBC Distribution Width 12.3 % (11.5-14.5); White Blood Cell (WBC) Count 13.5 thou/uL (4.8-10.8)
== END 2019-05-09 00:27 | disposition home or self-care (01) ==
LOC: SCSER 21:19
DX: B34.9 Viral infection, unspecified (principal); E86.0 Dehydration; I25.2 Old myocardial infarction; E11.9 Type 2 diabetes mellitus without complications; I10 Essential (primary) hypertension; Z79.899 Other long term (current) drug therapy
CPT/HCPCS: 36415; 71046; 80053; 81003; 83880; 85025; 85652; 86140; Q0163

== ENCOUNTER 2019-05-10 11:34 | Emergency (ER) | payer SELFPAY ==
[2019-05-10 12:01] LABS: #Basophils 0.2 thou/uL (0.0-0.2); #Eosinphils 0.5 thou/uL (0.0-0.7); #Lymphocytes 3.6 thou/uL (1.20-3.40); #Monocytes 1.2 thou/uL (0.11-0.59); %Basophils 1.8 % (0.0-1.0); %Eosinophils 3.8 % (0.0-10.0); %Lymphocytes 26.4 % (21.0-51.0); %Monocytes 8.9 % (0.0-10.0); %Neutrophils 59.1 % (42.0-75.0); Hemoglobin 13.6 g/dL (14.0-18.0); Mean Corpuscular HGB CONC 33.6 g/dL (32.0-36.0); Mean Corpuscular Volume 92.5 fL (78.0-98.0); Mean Platelet Volume 6.8 fL (7.4-10.4); Platelet Count 297 thou/uL (130-400); RBC Distribution Width 12.8 % (11.5-14.5); Red Blood Cell (RBC) Count 4.38 mill/uL (4.70-6.10); White Blood Cell (WBC) Count 13.5 thou/uL (4.8-10.8)
[2019-05-10 12:19] LABS: ALT (SGPT) 18 U/L (8-55); AST (SGOT) 12 U/L (5-34); Alkaline Phosphatase 73 U/L (40-150); Anion Gap 16 mmol/L (10-20); BUN (Urea Nitrogen) 10 mg/dL (8.9-20.6); Bilirubin, Total 0.2 mg/dL (0.2-1.2); CK (CPK) 50 U/L (30-200); Calc. Creatinine Clearance 0 mL/min (70-130); Calcium 9.7 mg/dL (7.8-10.44); Carbon Dioxide 21 mmol/L (22-29); Chloride 106 mmol/L (98-107); Estimated GFR-MDRD 76; Globulin 3.2 g/dL (2.4-3.5); Glucose 170 mg/dL (70-105); Lipase 25 U/L (8-78); Potassium 3.9 mmol/L (3.5-5.1); Protein, Total 7.2 g/dL (6.0-8.3); Sodium 139 mmol/L (136-145)
[2019-05-10] MEDS ORDERED: Ketorolac Tromethamine 30 MG/ML VIAL ONE (12:52)
--- NOTE | 2019-05-10 13:02 | RAD ---
PA AND LATERAL VIEWS CHEST: Date: 05/10/19 HISTORY: Chest pain. FINDINGS: Comparison made with exam of 05/08/19. Changes of median sternotomy are again seen. The heart size is normal. The lungs are expanded without lobar consolidation, pneumothoraces, or pleural effusions. IMPRESSION: No acute process. POS: [facility]
[2019-05-10 13:10] LABS: Bilirubin Negative (Negative); Blood, Urine Negative (Negative); Clarity Clear (Clear); Glucose, Urine (Dipstick) Negative (Negative); Leukocyte Negative (Negative); Nitrite Negative (Negative); Protein, Urine (Dipstick) Negative (Neg-Trace); Urobilinogen 0.2 mg/dL (Less than 2)
[2019-05-10] MEDS ORDERED: Acetaminophen 500 MG TAB ONE (13:50)
[2019-05-10] MEDS ORDERED: Ondansetron PF 4 MG/2 ML Vial ONE (13:50)
[2019-05-10 16:22] LABS: Lactic Acid 1.7 mmol/L (0.5-2.2)
--- NOTE | 2019-05-13 14:44 | EKG ---
Test Reason : Blood Pressure : / mmHG Vent. Rate : 101 BPM Atrial Rate : 101 BPM P-R Int : 150 ms QRS Dur : 086 ms QT Int : 388 ms P-R-T Axes : 036 067 090 degrees QTc Int : 503 ms Sinus tachycardia Nonspecific ST abnormality Inferior Q wave Abnormal ECG Confirmed by PRINCESS MANRIQUEZ, JUSTINA ([id number]), tape editor FROY CHEUNG ([id number]) on 05/13/2019 2:44:10 PM Referred By: Confirmed By:JUSTINA SÁNCHEZ MD
== END 2019-05-10 16:37 | disposition short-term general hospital (02) ==
LOC: SCSER 11:34
DX: R07.89 Other chest pain (principal); I25.2 Old myocardial infarction; I10 Essential (primary) hypertension; G40.909 Epilepsy, unspecified, not intractable, without status epilepticus; F17.210 Nicotine dependence, cigarettes, uncomplicated; Z79.899 Other long term (current) drug therapy; Z79.01 Long term (current) use of anticoagulants
CPT/HCPCS: 71046; 80053; 81003; 82550; 83605; 83690; 84484; 85025; 85379; 87040; 93005; 96361; 96374; 96375; 99406; J1885; J2405

== ENCOUNTER 2019-05-10 19:13 | Emergency (ER) | payer SELFPAY | END 2019-05-10 20:24 | disposition home or self-care (01) | LOC: SCSER 19:13 | DX: R07.9 Chest pain, unspecified (principal); Z71.6 Tobacco abuse counseling; I25.2 Old myocardial infarction; E11.9 Type 2 diabetes mellitus without complications; I10 Essential (primary) hypertension; G40.909 Epilepsy, unspecified, not intractable, without status epilepticus; F17.210 Nicotine dependence, cigarettes, uncomplicated; Z79.01 Long term (current) use of anticoagulants; Z79.899 Other long term (current) drug therapy | CPT/HCPCS: 36415; 93005; 99406 ==

== ENCOUNTER 2019-05-13 02:55 | Emergency (ER) | payer SELFPAY ==
[2019-05-13] MEDS ORDERED: Ketorolac Tromethamine 60 MG/2 ML VIAL ONE (03:17)
[2019-05-13] MEDS ORDERED: Acetaminophen 500 MG TAB ONE (03:22)
== END 2019-05-13 03:40 | disposition home or self-care (01) ==
LOC: SCSER 02:55
DX: M54.5 Low back pain (principal); I25.2 Old myocardial infarction; E11.9 Type 2 diabetes mellitus without complications; I10 Essential (primary) hypertension; G40.909 Epilepsy, unspecified, not intractable, without status epilepticus; K50.90 Crohn's disease, unspecified, without complications; I20.9 Angina pectoris, unspecified; Z79.899 Other long term (current) drug therapy
CPT/HCPCS: 93005; 96372; J1885

== ENCOUNTER 2019-05-16 22:12 | Emergency (ER) | payer SELFPAY ==
[2019-05-16 23:16] LABS: Bacteria/HPF Rare-Few HPF (None Seen); Bilirubin Negative (Negative); Blood, Urine Negative (Negative); Clarity Turbid (Clear); Glucose, Urine (Dipstick) Negative (Negative); Leukocyte Trace (Negative); Nitrite Negative (Negative); Protein, Urine (Dipstick) Trace mg/dL (Neg-Trace); RBC/HPF 0-3 HPF (0-3); Urobilinogen 0.2 mg/dL (Less than 2)
== END 2019-05-16 23:26 | disposition home or self-care (01) ==
LOC: SCSER 22:12
DX: E86.0 Dehydration (principal); N30.90 Cystitis, unspecified without hematuria; I25.2 Old myocardial infarction; E11.9 Type 2 diabetes mellitus without complications; I10 Essential (primary) hypertension; G40.909 Epilepsy, unspecified, not intractable, without status epilepticus; Z79.899 Other long term (current) drug therapy; Z79.01 Long term (current) use of anticoagulants
CPT/HCPCS: 81003; 81015; 93005

== ENCOUNTER 2019-05-28 00:25 | Observation (INO) | payer SELFPAY ==
[2019-05-28] MEDS ORDERED: Nitroglycerin 0.4 MG TAB 1 EACH ONE (00:48)
[2019-05-28 01:02] LABS: Hemoglobin 14.6 g/dL (14.0-18.0); Mean Corpuscular HGB CONC 34.4 g/dL (32.0-36.0); Mean Corpuscular Hemoglobin 30.7 pg (27.0-31.0); Mean Corpuscular Volume 89.3 fL (78.0-98.0); Mean Platelet Volume 7.5 fL (7.4-10.4); Platelet Count 419 thou/uL (130-400); RBC Distribution Width 12.1 % (11.5-14.5); Red Blood Cell (RBC) Count 4.74 mill/uL (4.70-6.10); White Blood Cell (WBC) Count 31.9 thou/uL (4.8-10.8)
[2019-05-28 01:18] LABS: Band 6 % (5-11); Lymphocytes 9 % (21-51); MDiff Complete? YES; Monocytes 5 % (0-10); Neutrophil 80 % (42-75); Platelet Morphology Comment Appears Increased
[2019-05-28 01:19] LABS: ALT (SGPT) 23 U/L (8-55); AST (SGOT) 14 U/L (5-34); Albumin 4.4 g/dL (3.5-5.0); Alkaline Phosphatase 79 U/L (40-150); Anion Gap 17 mmol/L (10-20); BUN (Urea Nitrogen) 13 mg/dL (8.9-20.6); Bilirubin, Total 0.4 mg/dL (0.2-1.2); Calc. Creatinine Clearance 0 mL/min (70-130); Calcium 9.8 mg/dL (7.8-10.44); Carbon Dioxide 19 mmol/L (22-29); Chloride 106 mmol/L (98-107); Estimated GFR-MDRD 70; Globulin 3.2 g/dL (2.4-3.5); Glucose 114 mg/dL (70-105); Lipase 13 U/L (8-78); Potassium 3.9 mmol/L (3.5-5.1); Protein, Total 7.6 g/dL (6.0-8.3); Sodium 138 mmol/L (136-145)
[2019-05-28] MEDS ORDERED: Acetaminophen 500 MG TAB ONE (01:43)
[2019-05-28] MEDS ORDERED: methylPREDNISolone Sod Succ/PF 125 MG/2 ML VIAL ONE (01:52)
[2019-05-28] MEDS ORDERED: Famotidine/PF 20 mg/2ml Vial ONE (01:52)
[2019-05-28] MEDS ORDERED: diphenhydrAMINE 50 MG/ML VIAL ONE (01:53)
[2019-05-28] MEDS ORDERED: Morphine 4 MG/ML VIAL ONE (04:14)
[2019-05-28] MEDS ORDERED: Ondansetron PF 4 MG/2 ML Vial ONE (05:06)
[2019-05-28 06:10] LABS: Troponin I Less than 0.010 ng/mL (< 0.028)
[2019-05-28] MEDS: Acetaminophen 325 MG TAB PO PRN ×2 (06:31→16:28)
[2019-05-28 06:33] VITALS: BMI 33.5
--- NOTE | 2019-05-28 07:41 | RAD ---
EXAM: CHEST ONE VIEW HISTORY: Left-sided chest pain shortness of breath. COMPARISON: 05/07/2019 FINDINGS: Postsurgical changes related to CABG are again noted. The cardiac silhouette and pulmonary vasculatur e are within normal limits. The lungs are clear. The osseous structures are intact. There has been no interval change from prior study. IMPRESSION: No acute cardiopulmonary process.
--- NOTE | 2019-05-28 07:53 | CT ---
PRELIMINARY REPORT/[facility]/EMERGENCY AFTER HOURS PROCEDURE: EXAM: CT Angiography Chest With Contrast EXAM DATE/TIME: 05/28/2019 2:29 AM CLINICAL HISTORY: 38 years old, male; Type not specified; Prior surgery; Surgery date: 6+ months; Surgery type: Multipl e vessel cabg, stents; Patient HX: 38 yo male with history of multiple vessel cabg, previous mi and s tents, HTN coming in with about 35 mins of chest pain that started while he was walking around in [employer]. States he feels short of breath due to the pain as well as minimally nauseated TECHNIQUE: Imaging protocol: Axial computed tomographic angiography images of the chest with intravenous contras t using CT angiography protocol. Coronal and sagittal reformatted images were created and reviewed. 3 D rendering: MIP reconstructed images were created and reviewed. COMPARISON: No relevant prior studies available. FINDINGS: Pulmonary arteries: No pulmonary emboli. Aorta: Unremarkable. No aortic aneurysm. No aortic dissection. Lungs: Unremarkable. No consolidation. No masses. Pleural space: Unremarkable. No pneumothorax. No pleural effusion. Heart: Changes of prior sternotomy and CABG. Lymph nodes: Unremarkable. No enlarged lymph nodes. Bones/joints: Unremarkable. No acute fracture. Soft tissues: Unremarkable. IMPRESSION: No pulmonary emboli. Thank you for allowing us to participate in the care of your patient. Dictated and Authenticated by: Clarke Fry MD 05/28/2019 3:46 AM Central Time ([place] & [place]) FINAL REPORT CT ANGIOGRAM OF THE CHEST: HISTORY: Chest pain. COMPARISON: 06/07/2018. TECHNIQUE: CT angiogram of the chest is performed in the axial plane. Three-dimensional reformatted images are submitted for interpretation. FINDINGS: No abnormality in the mediastinum. Normal heart size. No significant pericardial effusion. Visuali zed aorta and upper solid organs are unremarkable. Adequate contrast opacification of the pulmonary arterial system to the level of the segmental arteri es. No filling defects to suggest thromboembolism. Adequate aeration of the lung parenchyma. Trachea and central bronchi are patent. No pleural effusi on. No pneumothorax. IMPRESSION: This report is in agreement with the preliminary report by [facility]. No evidence of pulmonary artery embo lism to the level of the segmental arteries. POS: [facility]
[2019-05-28] MEDS ORDERED: Morphine ER 15 MG TAB PO PRN (08:11)
[2019-05-28] MEDS ORDERED: clonazePAM 0.5 MG TAB PO PRN (08:11)
[2019-05-28 08:28] LABS: Hemoglobin 13.8 g/dL (14.0-18.0); Mean Corpuscular HGB CONC 33.4 g/dL (32.0-36.0); Mean Corpuscular Hemoglobin 29.5 pg (27.0-31.0); Mean Corpuscular Volume 88.4 fL (78.0-98.0); Mean Platelet Volume 7.6 fL (7.4-10.4); Platelet Count 371 thou/uL (130-400); Red Blood Cell (RBC) Count 4.68 mill/uL (4.70-6.10); White Blood Cell (WBC) Count 21.4 thou/uL (4.8-10.8)
[2019-05-28] MEDS: Aspirin Chewable 81 MG TAB PO SCH (08:42)
[2019-05-28] MEDS: FLUoxetine HCl 10 MG CAP PO SCH (08:43)
[2019-05-28] MEDS: lamoTRIgine 100 MG TAB PO SCH (08:43)
[2019-05-28 08:47] LABS: Anion Gap 14 mmol/L (10-20); BUN (Urea Nitrogen) 18 mg/dL (8.9-20.6); Calc. Creatinine Clearance 131 mL/min (70-130); Calcium 9.4 mg/dL (7.8-10.44); Carbon Dioxide 21 mmol/L (22-29); Cardiac Risk 5.3 (Less than 4.5); Chloride 107 mmol/L (98-107); Cholesterol 160 mg/dl (< 200 Desired); Estimated GFR-MDRD 80; Glucose 128 mg/dL (70-105); HDL Cholesterol 30 mg/dL (>60 Neg Risk); LDL Cholesterol, Calculated 106 mg/dL; Potassium 4.5 mmol/L (3.5-5.1); Sodium 137 mmol/L (136-145); Triglycerides 121 mg/dL (Less than 150)
[2019-05-28] MEDS: TICAGRELOR 90 MG TABLET PO SCH ×2 (08:47→21:31)
[2019-05-28 08:50] LABS: Troponin I Less than 0.010 ng/mL (< 0.028)
[2019-05-28 08:54] LABS: #Lymphocytes 1.3 thou/uL (1.20-3.40); #Monocytes 0.2 thou/uL (0.11-0.59); #Neutrophils 19.9 thou/uL (1.40-6.50); %Lymphocytes 5.9 % (21.0-51.0); %Neutrophils 93.1 % (42.0-75.0); Band 2 % (5-11); Lymphocytes 8 % (21-51); MDiff Complete? YES; Monocytes 1 % (0-10); Neutrophil 89 % (42-75); RBC Morphology Normal
[2019-05-28] MEDS ORDERED: FLUOXETINE HCL 30 MG PO SCH (09:00)
[2019-05-28] MEDS ORDERED: Aspirin 325 MG TAB PO SCH (09:00)
[2019-05-28 09:24] LABS: Bacteria/HPF None Seen HPF (None Seen); Bilirubin Negative (Negative); Blood, Urine Negative (Negative); Clarity Clear (Clear); Glucose, Urine (Dipstick) Normal (Negative); Leukocyte Negative Leu/uL (Negative); Mucous/LPF Rare LPF (<2+); Nitrite Negative (Negative); Protein, Urine (Dipstick) 20 mg/dL (Neg-Trace); Squamous Epithelial 0-3 HPF (0-3); Urobilinogen Normal mg/dL (Less than 2); WBC/HPF 0-3 HPF (0-3)
[2019-05-28 09:26] LABS: Urine Culture Reflex No No
[2019-05-28] MEDS ORDERED: ISOVUE-370 76%-LOCM 1 ML ONE (15:26)
--- NOTE | 2019-05-28 15:57 | CON ---
DATE OF CONSULTATION: REASON FOR CONSULTATION: Chest pain. HISTORY OF PRESENT ILLNESS: Mr. Batres is an unfortunate 38-year-old gentleman who is a patient of Dr. Lu Cabrera. He recently presented with chest pain. It began at 1 o'clock in the morning. It has been unremitting. He states it is worse with exhalation. It is dull in nature. His CK-MB and troponin have been negative. His EKG is also within normal limits. I have recently seen and evaluated Mr. Batres as an inpatient with similar symptoms. He has also had a stent placed. He has undergone bypass surgery due to intractable pain and it was unknown whether it was truly related to underlying coronary artery disease. PAST MEDICAL HISTORY: CAD, status post bypass surgery, noncompliance. HOME MEDICATIONS: None. SOCIAL HISTORY: Positive tobacco use. REVIEW OF SYMPTOMS: Ten-point review of systems is reviewed and as above, otherwise negative. PHYSICAL EXAMINATION: GENERAL: Patient is a pleasant male, who is in no acute distress. The patient does appear older than stated age. VITAL SIGNS: Blood pressure 108/67, pulse 74, temperature 98.5. NEUROLOGIC: The patient is alert and oriented x3 with no focal neurologic deficits. HEENT: Sclerae without icterus. Mouth has moist mucous membranes with normal pallor. NECK: No JVD. Carotid upstroke brisk. No bruits bilaterally. LUNGS: Clear to auscultation with unlabored respirations. BACK: No scoliosis or kyphosis. CARDIAC: Regular rate and rhythm with normal S1 and S2. No S3 or S4 noted. No significant rubs, murmurs, thrills, or gallops noted throughout the precordium. PMI is not displaced. There is no parasternal heave. ABDOMEN: Soft, nontender, nondistended. No peritoneal signs present. No hepatosplenomegaly. No abnormal striae. EXTREMITIES: 2+ femoral and 2+ dorsalis pedis pulses. No cyanosis, clubbing, or edema. SKIN: No gross abnormalities. LABORATORY DATA: CK and troponin, negative. White blood cell count 21,000. IMPRESSION: 1. Chest pain. 2. Coronary artery disease. 3. Status post bypass surgery. 4. Tobacco abuse. RECOMMENDATIONS: Mr. Batres's symptoms are not felt to be related to underlying coronary artery disease. His symptoms are atypical. His CK and troponin, negative. At this point, we will treat his underlying pain. It would be okay from my standpoint to eat. Further recommendation per Dr. Lu Cabrera in a.m. Job ID: [id number]
--- NOTE | 2019-05-28 16:22 | HP ---
PRIMARY CARE PHYSICIAN: Dr. Wall. CHIEF COMPLAINT: Chest pain. HISTORY OF PRESENT ILLNESS: Mr. Batres is a 38-year-old male, past medical history of a CABG on 03/26/2018, also had a stent placed in February of this year, came to the hospital with recurrent chest pain. He has been seen multiple times at this facility at [facility] ER at [facility] for abdominal pain, chest pain, and scrotal pain. He was seen in the emergency room here on the , had a CT of abdomen and pelvis, which showed no acute findings. Also, had an ultrasound of his upper right quadrant, which showed no acute findings. He was seen and discharged here in February of 2019 with unstable angina, history of a seizure disorder, AFib, history of medical noncompliance. At that time, he was sent home on Imdur 30 and Brilinta. The patient states that he still takes a Brilinta, but was taken off the Imdur by one of the doctors at the [facility], but is not sure which one. The patient reports that he started having chest pain while walking [place] [email or web address], radiates to his left arm, which prompted his visit to the emergency room at this point on this visit. The patient was given Zofran, morphine, Solu-Medrol, Pepcid, Benadryl, Tylenol, and nitroglycerin. He reported that he felt a little short of breath and nauseated, but had not vomited. CTA was done that showed no obvious source for his symptoms. Urinalysis was performed that showed no sign of infection. Chest x-ray negative. Lab values all are unremarkable except for an elevated white blood cell count at 31.9. The patient did receive steroids in the ER. The last white blood cell count was checked on the 22 of May and was 9.2. It was rechecked this morning prior to being admitted and it was down to 21.4. The patient was seen in March of this year, admitted, was evaluated again for chest pain. He did have a history of a left heart catheterization by Dr. Chamorro on March 05, 2019, which revealed patent grafts to the distal RCA and OM, along with a patent WATERS to the LAD. He did have a 90% stenosis of the [place] circumflex and underwent successful PTCA and stenting at that time. He continued to have some issues with compliance and had several readmissions since then. The patient's troponin x3 have been undetectable. EKG in the emergency room shows normal sinus rhythm, beats per minute 98, does have possible left atrial enlargement, prolonged QT 430-548, ST segments and T-waves normal. The patient was admitted to the observation unit for further management. PAST MEDICAL HISTORY: Epididymitis, kidney stones, coronary artery disease, myocardial infarction, diabetes, hypertension, epilepsy, Crohn's, angina, and seizure disorder. PAST SURGICAL HISTORY: Coronary artery bypass, 3-vessels, 3 cardiac stents. PSYCHIATRIC HISTORY: None. SOCIAL HISTORY: Lives at home with his family. Denies any alcohol or drug use. Does currently smoke, smokes half a pack per day. KNOWN ALLERGIES: Imdur, itching. Iodine, penicillin, and sulfa. CURRENT MEDICATIONS: 1. Lipitor 20 mg p.o. at bedtime. 2. Klonopin 0.5 mg p.o. q.6. 3. Fluoxetine 30 mg p.o. daily. 4. p.o. daily. 5. MS Contin 30 mg p.o. b.i.d. p.r.n. 6. Seroquel 800 mg p.o. at bedtime. 7. Aspirin 81 mg p.o. q.a.m. 8. Nitrostat 0.4 mg sublingual q.5 minutes as needed. 9. Brilinta 90 mg p.o. b.i.d. REVIEW OF SYSTEMS: Reports chest pain. Reports mild shortness of breath. Reports some nausea. Reports diaphoresis. Denies fever or chills. Denies cough. All other systems are reviewed and are negative unless mentioned in the HPI. PHYSICAL EXAMINATION: VITAL SIGNS: Blood pressure 108/69, pulse is 83, respirations 20, temperature is 98.4. Pain is 9/10. PO2 sats 94% on room air. CONSTITUTIONAL: The patient is tachycardic. The patient is in some mild pain distress. Alert and oriented to person, place, and time. HEENT: Head is atraumatic and normocephalic. Eyes; pupils are equal, round, reactive to light. Extraocular muscles are intact. ENT; mouth exam is normal. Mucous membranes are moist. NECK: Normal range of motion. Trachea midline. RESPIRATORY/CHEST: Breath sounds are clear. Chest movement is symmetrical. CARDIOVASCULAR: Regular heart rate and rhythm. Heart sounds are normal. ABDOMEN: Soft, nontender. Bowel sounds are heard. BACK: Normal inspection. Normal range of motion. No tenderness. EXTREMITIES: Upper extremity, normal range of motion, motor strength is normal, sensation intact, radial pulses equal. Lower extremity, normal, range of motion normal, strength normal, sensation intact, pedal pulses equal bilaterally. NEUROLOGIC: Oriented to person, place, and time. Speech is normal. SKIN: Warm, dry, and normal in color. PLAN AND ASSESSMENT: 1. Chest pain. Troponins x3 have been negative. EKG did not show any acute changes. CTA of the chest, no acute findings, with the patient's history, 3 stents, coronary artery bypass grafting. The patient was on Imdur earlier in the year but was evidently taken off because he developed some itching associated with it. He tells me that he has been taking his medications faithfully including the Brilinta. He has not had an echocardiogram since May of last year, we will repeat this. We will ask Cardiology for their input on any help with potentially angina symptoms. Continue aspirin every day. We will continue Lipitor. 2. Leukocytosis. This is improved overnight. There is no clear source. The patient did receive steroids in the ER. We will recheck in the morning. Continue to monitor. Recheck labs. 3. History of seizure disorder. We will continue home medications. 4. Chronic pain syndrome. We will continue the patient's home medications. The patient receives morphine and MS Contin 30 mg p.o. b.i.d. as he needs. 5. Case will be discussed with Dr. Lennon for further recommendations. 6. Gastrointestinal prophylaxis will be started. Deep venous thrombosis prophylaxis should be covered with the Brilinta and the aspirin. Hospital course is dependent on clinical findings. Job ID: [id number]
[2019-05-28] MEDS ORDERED: Atorvastatin Calcium 20 MG TAB PO SCH (21:00)
[2019-05-28] MEDS: Morphine ER 30 MG TAB PO PRN (21:33)
[2019-05-29] MEDS: Acetaminophen 325 MG TAB PO PRN (04:44)
[2019-05-29 05:53] LABS: #Lymphocytes 2.3 thou/uL (1.20-3.40); #Neutrophils 12.8 thou/uL (1.40-6.50); %Basophils 0.1 % (0.0-1.0); %Eosinophils 0.1 % (0.0-10.0); %Lymphocytes 14.3 % (21.0-51.0); %Neutrophils 79.4 % (42.0-75.0); Hemoglobin 13.4 g/dL (14.0-18.0); Mean Corpuscular HGB CONC 33.2 g/dL (32.0-36.0); Mean Corpuscular Hemoglobin 30.1 pg (27.0-31.0); Mean Corpuscular Volume 90.6 fL (78.0-98.0); Mean Platelet Volume 7.9 fL (7.4-10.4); Platelet Count 336 thou/uL (130-400); RBC Distribution Width 12.2 % (11.5-14.5); Red Blood Cell (RBC) Count 4.46 mill/uL (4.70-6.10); White Blood Cell (WBC) Count 16.1 thou/uL (4.8-10.8)
[2019-05-29 06:11] LABS: Anion Gap 14 mmol/L (10-20); BUN (Urea Nitrogen) 17 mg/dL (8.9-20.6); Calc. Creatinine Clearance 145 mL/min (70-130); Calcium 9.8 mg/dL (7.8-10.44); Carbon Dioxide 22 mmol/L (22-29); Chloride 107 mmol/L (98-107); Estimated GFR-MDRD 89; Glucose 100 mg/dL (70-105); Potassium 3.8 mmol/L (3.5-5.1); Sodium 139 mmol/L (136-145)
[2019-05-29 08:37] VITALS: BP 110/71; TEMP 97.4
[2019-05-29] MEDS ORDERED: Ezetimibe 10 MG TAB PO SCH (09:00)
--- NOTE | 2019-05-29 09:23 | PRG ---
DATE OF SERVICE: 05/29/2019 SUBJECTIVE: Mr. Batres as outlined by Dr. Gupta, had negative cardiac enzymes and no changes on his EKGs, pain-free this morning. OBJECTIVE: VITAL SIGNS: Blood pressure is 110/70, pulse is 70. LUNGS: Clear. CARDIAC: Normal S1, normal S2. LABORATORY DATA: Reviewing the laboratories, LDL cholesterol is still elevated at 106. ASSESSMENT: 1. Coronary artery disease with previous bypass. 2. Previous stent implantation by Dr. Chamorro. 3. LDL cholesterol still well above target of 70. 4. Continues to smoke half pack cigarettes per day. PLAN: 1. Encouraged smoking cessation. 2. We will increase atorvastatin to 80 mg a day. 3. Add Zetia 10 mg a day. 4. He will follow up with Dr. Chamorro. Job ID: [id number]
[2019-05-29] MEDS: Aspirin Chewable 81 MG TAB PO SCH (09:31)
[2019-05-29] MEDS: lamoTRIgine 100 MG TAB PO SCH (09:31)
[2019-05-29] MEDS: FLUoxetine HCl 10 MG CAP PO SCH (09:31)
[2019-05-29] MEDS: TICAGRELOR 90 MG TABLET PO SCH (09:32)
[2019-05-29] MEDS: Morphine ER 30 MG TAB PO PRN (09:38)
[2019-05-29] MEDS ORDERED: Atorvastatin Calcium 40 MG TAB PO SCH (21:00)
== END 2019-05-29 12:11 | disposition home or self-care (01) ==
LOC: ERS 00:25 → 2SW 05:59
PROVIDERS: ADMIT Internal Medicine; ATTEND Internal Medicine
DX: R07.9 Chest pain, unspecified (principal); I25.10 Atherosclerotic heart disease of native coronary artery without angina pectoris; D72.829 Elevated white blood cell count, unspecified; G40.909 Epilepsy, unspecified, not intractable, without status epilepticus; E78.00 Pure hypercholesterolemia, unspecified; F17.210 Nicotine dependence, cigarettes, uncomplicated; I25.2 Old myocardial infarction; I10 Essential (primary) hypertension; E11.9 Type 2 diabetes mellitus without complications; G89.4 Chronic pain syndrome; Z95.1 Presence of aortocoronary bypass graft; Z91.19 Patient's noncompliance with other medical treatment and regimen; Z91.041 Radiographic dye allergy status; Z88.0 Allergy status to penicillin; Z88.2 Allergy status to sulfonamides; Z91.013 Allergy to seafood; Z88.8 Allergy status to other drugs, medicaments and biological substances; Z79.82 Long term (current) use of aspirin; Z79.899 Other long term (current) drug therapy
CPT/HCPCS: 36415; 36416; 71045; 71275; 80048; 80053; 80061; 81001; 83690; 83735; 84484; 85025; 93005; 93306; 96374; 96375; G0378; J1200; J2270; J2405; J2930; Q9966; S0028

== ENCOUNTER 2019-05-31 23:35 | Emergency (ER) | payer SELFPAY ==
[2019-06-01 00:05] LABS: #Basophils 0.1 thou/uL (0.0-0.2); #Eosinphils 0.4 thou/uL (0.0-0.7); #Lymphocytes 3.9 thou/uL (1.20-3.40); #Monocytes 0.7 thou/uL (0.11-0.59); #Neutrophils 7.5 thou/uL (1.40-6.50); %Basophils 0.5 % (0.0-1.0); %Eosinophils 3.3 % (0.0-10.0); %Lymphocytes 30.8 % (21.0-51.0); %Monocytes 5.8 % (0.0-10.0); %Neutrophils 59.7 % (42.0-75.0); Hemoglobin 14.3 g/dL (14.0-18.0); Mean Corpuscular HGB CONC 34.6 g/dL (32.0-36.0); Mean Corpuscular Hemoglobin 31.2 pg (27.0-31.0); Mean Corpuscular Volume 90.2 fL (78.0-98.0); Mean Platelet Volume 7.7 fL (7.4-10.4); Platelet Count 306 thou/uL (130-400); RBC Distribution Width 12.4 % (11.5-14.5); Red Blood Cell (RBC) Count 4.58 mill/uL (4.70-6.10); White Blood Cell (WBC) Count 12.5 thou/uL (4.8-10.8)
[2019-06-01 00:19] LABS: ALT (SGPT) 24 U/L (8-55); AST (SGOT) 12 U/L (5-34); Alkaline Phosphatase 75 U/L (40-150); Anion Gap 13 mmol/L (10-20); BUN (Urea Nitrogen) 16 mg/dL (8.9-20.6); Bilirubin, Total Less than 0.2 mg/dL (0.2-1.2); CK (CPK) 26 U/L (30-200); Calc. Creatinine Clearance 0 mL/min (70-130); Calcium 9.3 mg/dL (7.8-10.44); Carbon Dioxide 22 mmol/L (22-29); Chloride 106 mmol/L (98-107); Estimated GFR-MDRD 73; Globulin 2.7 g/dL (2.4-3.5); Glucose 149 mg/dL (70-105); Lipase 24 U/L (8-78); Potassium 3.8 mmol/L (3.5-5.1); Protein, Total 6.7 g/dL (6.0-8.3); Sodium 137 mmol/L (136-145)
--- NOTE | 2019-06-01 00:36 | RAD ---
RADIOGRAPH CHEST 1 VIEW: DATE: 06/01/2019 HISTORY: 38-year-old male with chest pain and dyspnea FINDINGS: There are no airspace densities, pulmonary edema, pneumothorax, or cardiomegaly. The lateral costophr enic angles are sharp. Mediastinal contour is normal. No hilar enlargement. There are sternotomy wires. IMPRESSION: 1. No acute cardiopulmonary findings. 2. Evidence of previous open-heart surgery.
[2019-06-01] MEDS ORDERED: Aspirin Chewable 81 MG TAB ONE (01:23)
[2019-06-01 04:50] LABS: Troponin I Less than 0.010 ng/mL (< 0.028)
== END 2019-06-01 05:01 | disposition home or self-care (01) ==
LOC: ERS 23:35
DX: R07.89 Other chest pain (principal); M79.602 Pain in left arm; Z71.6 Tobacco abuse counseling; I25.2 Old myocardial infarction; E11.9 Type 2 diabetes mellitus without complications; I10 Essential (primary) hypertension; G40.909 Epilepsy, unspecified, not intractable, without status epilepticus; I20.9 Angina pectoris, unspecified; F17.210 Nicotine dependence, cigarettes, uncomplicated; Z79.899 Other long term (current) drug therapy; Z79.01 Long term (current) use of anticoagulants
CPT/HCPCS: 36415; 71045; 80053; 82550; 83690; 84484; 85025; 93005; 94760; 99406

== ENCOUNTER 2019-06-19 13:03 | Emergency (ER) | payer SELFPAY ==
[2019-06-19 13:46] LABS: #Basophils 0.1 thou/uL (0.0-0.2); #Eosinphils 0.7 thou/uL (0.0-0.7); #Lymphocytes 3.4 thou/uL (1.20-3.40); #Monocytes 1.2 thou/uL (0.11-0.59); #Neutrophils 8.2 thou/uL (1.40-6.50); %Basophils 0.8 % (0.0-1.0); %Eosinophils 5.1 % (0.0-10.0); %Lymphocytes 24.9 % (21.0-51.0); %Monocytes 8.7 % (0.0-10.0); %Neutrophils 60.5 % (42.0-75.0); Hemoglobin 13.7 g/dL (14.0-18.0); Mean Corpuscular HGB CONC 34.5 g/dL (32.0-36.0); Mean Corpuscular Hemoglobin 30.7 pg (27.0-31.0); Mean Corpuscular Volume 89.2 fL (78.0-98.0); Mean Platelet Volume 7.1 fL (7.4-10.4); Platelet Count 350 thou/uL (130-400); RBC Distribution Width 12.3 % (11.5-14.5); Red Blood Cell (RBC) Count 4.45 mill/uL (4.70-6.10); White Blood Cell (WBC) Count 13.5 thou/uL (4.8-10.8)
--- NOTE | 2019-06-19 13:54 | RAD ---
CHEST 1 VIEW: Date: 06/19/19 HISTORY: Chest pain. COMPARISON: Radiograph dated 05/31/19. FINDINGS: Heart size mildly enlarged. Multiple midline sternotomy wires. No pneumothorax or effusion. No acute osseous abnormality. IMPRESSION: No acute intrathoracic abnormality. POS: [facility]
[2019-06-19 14:08] LABS: ALT (SGPT) 28 U/L (8-55); AST (SGOT) 18 U/L (5-34); Albumin 4.2 g/dL (3.5-5.0); Alkaline Phosphatase 75 U/L (40-150); Anion Gap 14 mmol/L (10-20); BUN (Urea Nitrogen) 10 mg/dL (8.9-20.6); Bilirubin, Total 0.2 mg/dL (0.2-1.2); Calc. Creatinine Clearance 0 mL/min (70-130); Calcium 9.9 mg/dL (7.8-10.44); Carbon Dioxide 23 mmol/L (22-29); Chloride 107 mmol/L (98-107); Estimated GFR-MDRD 90; Globulin 2.8 g/dL (2.4-3.5); Glucose 87 mg/dL (70-105); Potassium 3.8 mmol/L (3.5-5.1); Sodium 140 mmol/L (136-145)
[2019-06-19] MEDS ORDERED: Ketorolac Tromethamine 30 MG/ML VIAL ONE (14:37)
== END 2019-06-19 14:51 | disposition home or self-care (01) ==
LOC: ERS 13:03
DX: G89.29 Other chronic pain (principal); R07.9 Chest pain, unspecified; I25.2 Old myocardial infarction; E11.9 Type 2 diabetes mellitus without complications; I10 Essential (primary) hypertension; G40.909 Epilepsy, unspecified, not intractable, without status epilepticus; I20.9 Angina pectoris, unspecified; F17.210 Nicotine dependence, cigarettes, uncomplicated; Z79.899 Other long term (current) drug therapy; Z79.82 Long term (current) use of aspirin
CPT/HCPCS: 36415; 71045; 80053; 84484; 85025; 93005; 96374; J1885

== ENCOUNTER 2019-07-09 21:37 | Emergency (ER) | payer SELFPAY ==
--- NOTE | 2019-07-09 22:38 | CT ---
Exam: Abdomen CT without contrast Pelvic CT without contrast HISTORY: Right flank pain. Right lower quadrant pain. Previous lithotripsy last month. COMPARISON: 02/20/2019 FINDINGS: Abdomen CT: Lung bases:Patchy groundglass opacities in lung bases which have developed CT angiogram of the chest performed on 05/27/2019. Correlate for edema or infiltrate. Heart size: Normal heart size. No significant pericardial fluid. There is atherosclerosis of the bashir nary arteries Aorta: Grossly unremarkable Solid organs: Limited evaluation due to lack of IV contrast administration. Stable attenuation of the liver with focal area of hypoattenuation and a focal area of hyperattenuation. Grossly no solid organ abnormality Lymph nodes: No gastrohepatic, retrocrural or periportal lymphadenopathy Gallbladder: Contracted Mesentery: No mass, lymphadenopathy, free air or free fluid Kidneys: Bilaterally, no hydronephrosis, nephrolithiasis or perinephric fat stranding. Bilateral uret ers have a normal caliber. No hydroureter, periureteral fat stranding or ureterolithiasis. Alimentary canal: Limited evaluation due to lack of oral contrast menstruation. No evidence of small bowel obstruction. Unremarkable ileocecal junction. Scattered fecal material in a nondistended, nondilated colon. Normal caliber appendix. CT PELVIS: No mass, adenopathy, free air or free fluid. Urinary bladder: Unremarkable. Osseous structures: No lytic or blastic lesions IMPRESSION: 1. No evidence of obstructive uropathy 2. Normal caliber appendix 3. Interval development of groundglass opacities in lung bases. Correlate for edema or infiltrate.
[2019-07-09 22:47] LABS: #Basophils 0.1 thou/uL (0.0-0.2); #Eosinphils 0.7 thou/uL (0.0-0.7); #Monocytes 0.8 thou/uL (0.11-0.59); #Neutrophils 5.9 thou/uL (1.40-6.50); %Basophils 1.4 % (0.0-1.0); %Eosinophils 6.4 % (0.0-10.0); %Lymphocytes 28.7 % (21.0-51.0); %Neutrophils 55.6 % (42.0-75.0); Hemoglobin 13.6 g/dL (14.0-18.0); Mean Corpuscular HGB CONC 34.5 g/dL (32.0-36.0); Mean Corpuscular Hemoglobin 30.5 pg (27.0-31.0); Mean Corpuscular Volume 88.3 fL (78.0-98.0); Mean Platelet Volume 7.5 fL (7.4-10.4); Platelet Count 284 thou/uL (130-400); RBC Distribution Width 13.2 % (11.5-14.5); Red Blood Cell (RBC) Count 4.46 mill/uL (4.70-6.10); White Blood Cell (WBC) Count 10.6 thou/uL (4.8-10.8)
[2019-07-09 23:02] LABS: ALT (SGPT) 30 U/L (8-55); AST (SGOT) 19 U/L (5-34); Alkaline Phosphatase 69 U/L (40-110); Anion Gap 15 mmol/L (10-20); BUN (Urea Nitrogen) 9 mg/dL (8.9-20.6); Bilirubin, Total 0.2 mg/dL (0.2-1.2); Calc. Creatinine Clearance 0 mL/min (70-130); Calcium 9.3 mg/dL (7.8-10.44); Carbon Dioxide 23 mmol/L (22-29); Chloride 107 mmol/L (98-107); Estimated GFR-MDRD Greater than 90; Globulin 2.9 g/dL (2.4-3.5); Glucose 123 mg/dL (70-105); Lipase 25 U/L (8-78); Potassium 3.8 mmol/L (3.5-5.1); Protein, Total 6.9 g/dL (6.0-8.3); Sodium 141 mmol/L (136-145)
[2019-07-09 23:32] LABS: Bilirubin Negative (Negative); Blood, Urine Negative (Negative); Clarity Clear (Clear); Glucose, Urine (Dipstick) Negative (Negative); Leukocyte Negative (Negative); Nitrite Negative (Negative); Protein, Urine (Dipstick) Negative (Neg-Trace); Urobilinogen 0.2 mg/dL (Less than 2)
--- NOTE | 2019-07-09 23:57 | ULT ---
EXAM: TESTICULAR ULTRASOUND WITH DOPPLER 07/09/19 HISTORY: Bilateral testicular pain ad edema. Pain with urination. COMPARISON: 03/24/19 TECHNIQUE: Shi scale, color flow, Doppler imaging with spectral waveform analysis performed of the left and rig ht testicle. Right hemiscrotum: The right testicle has a homogeneous echotexture. No intratesticular mass. The rig ht testicle measures 2.8 x 1.8 x 4.0 cm. There is an anechoic focus in the right epididymis measurin g 0.6 cm compatible with an epididymal cyst. A second anechoic focus is also identified measuring 0.7 cm. Overall, the epididymis measures 0.9 x 1.3 x 1.3 cm. Trace amount of fluid is noted in the right hemiscrotum, compatible with a hydrocele. Left hemiscrotum: The left testicle has a homogeneous echotexture. No intratesticular masses. Left t esticle measures 3.0 x 1.7 x 4.2 cm. Left epididymis has a normal echotexture measuring 0.8 x 0.9 x 0.7 cm. There is no significant fluid in the left hemiscrotum. Testicular Doppler: There is symmetric vascular flow to the left and right testicle. IMPRESSION: 1. Symmetric vascular flow to both testicles. No evidence of an intratesticular mass. 2. Multiple right epididymal cyst. POS: [facility]
== END 2019-07-09 23:48 | disposition home or self-care (01) ==
LOC: SCSER 21:37
DX: R10.31 Right lower quadrant pain (principal); I25.2 Old myocardial infarction; E11.9 Type 2 diabetes mellitus without complications; I10 Essential (primary) hypertension; F17.210 Nicotine dependence, cigarettes, uncomplicated; Z79.899 Other long term (current) drug therapy
CPT/HCPCS: 74176; 76870; 80053; 81003; 83690; 85025; 93976

== ENCOUNTER 2020-07-28 01:42 | Emergency (ER) | payer SELFPAY ==
[2020-07-28 02:19] LABS: #Basophils 0.1 thou/uL (0.0-0.2); #Eosinphils 0.6 thou/uL (0.0-0.7); #Lymphocytes 3.2 thou/uL (1.20-3.40); #Neutrophils 9.4 thou/uL (1.40-6.50); %Basophils 0.8 % (0.0-1.0); %Eosinophils 3.9 % (0.0-10.0); %Lymphocytes 22.6 % (21.0-51.0); %Monocytes 7.1 % (0.0-10.0); %Neutrophils 65.7 % (42.0-75.0); Hemoglobin 15.7 g/dL (14.0-18.0); Mean Corpuscular HGB CONC 35.2 g/dL (32.0-36.0); Mean Corpuscular Hemoglobin 32.8 pg (27.0-31.0); Mean Corpuscular Volume 93.3 fL (78.0-98.0); Mean Platelet Volume 7.7 fL (7.4-10.4); Platelet Count 329 thou/uL (130-400); RBC Distribution Width 12.4 % (11.5-14.5); White Blood Cell (WBC) Count 14.3 thou/uL (4.8-10.8)
[2020-07-28] MEDS ORDERED: Nitroglycerin 0.4 MG TAB 1 EACH ONE (02:25)
[2020-07-28 02:40] LABS: ALT (SGPT) 39 U/L (8-55); AST (SGOT) 26 U/L (5-34); Albumin 4.3 g/dL (3.5-5.0); Alkaline Phosphatase 99 U/L (40-110); Anion Gap 14 mmol/L (10-20); BUN (Urea Nitrogen) 9 mg/dL (8.9-20.6); Bilirubin, Total 0.4 mg/dL (0.2-1.2); Calc. Creatinine Clearance 0 mL/min (70-130); Calcium 9.7 mg/dL (7.8-10.44); Carbon Dioxide 24 mmol/L (22-29); Chloride 104 mmol/L (98-107); Estimated GFR-MDRD Greater than 90; Globulin 3.3 g/dL (2.4-3.5); Glucose 107 mg/dL (70-105); Protein, Total 7.6 g/dL (6.0-8.3); Sodium 138 mmol/L (136-145)
--- NOTE | 2020-07-28 08:02 | RAD ---
Portable frontal chest radiograph: 07/28/2020 COMPARISON: 07/16/2020 HISTORY: Chest pain FINDINGS: Midline sternotomy wires are present. Heart and mediastinal contours are stable. No pneumot horax or pleural fluid is seen and there is no focal consolidation or alveolar edema. IMPRESSION: No focal consolidation or alveolar edema noted.
--- NOTE | 2020-07-31 10:37 | EKG ---
Test Reason : Blood Pressure : / mmHG Vent. Rate : 093 BPM Atrial Rate : 093 BPM P-R Int : 148 ms QRS Dur : 088 ms QT Int : 382 ms P-R-T Axes : 020 071 085 degrees QTc Int : 474 ms Normal sinus rhythm Normal ECG Confirmed by KIZZY VELAZCO ([id number]), technical writer and editor GREGG ELIZONDO ([id number]) on 07/31/2020 10:37:24 AM Referred By: Confirmed By:KIZZY VELAZCO
== END 2020-07-28 03:00 | disposition home or self-care (01) ==
LOC: ERS 01:42
DX: R07.9 Chest pain, unspecified (principal); E11.9 Type 2 diabetes mellitus without complications; F41.9 Anxiety disorder, unspecified; F17.210 Nicotine dependence, cigarettes, uncomplicated; Z79.899 Other long term (current) drug therapy; Z79.82 Long term (current) use of aspirin
CPT/HCPCS: 36415; 71045; 80053; 84484; 85025; 93005

== ENCOUNTER 2020-08-07 23:32 | Observation (INO) | payer OTHER, SELFPAY ==
[2020-08-07 23:57] LABS: #Basophils 0.1 thou/uL (0.0-0.2); #Eosinphils 0.7 thou/uL (0.0-0.7); #Lymphocytes 4.3 thou/uL (1.20-3.40); #Monocytes 1.1 thou/uL (0.11-0.59); #Neutrophils 6.8 thou/uL (1.40-6.50); %Basophils 0.7 % (0.0-1.0); %Eosinophils 5.7 % (0.0-10.0); %Monocytes 8.5 % (0.0-10.0); %Neutrophils 52.2 % (42.0-75.0); Hemoglobin 15.2 g/dL (14.0-18.0); Mean Corpuscular HGB CONC 35.9 g/dL (32.0-36.0); Mean Corpuscular Hemoglobin 33.5 pg (27.0-31.0); Mean Corpuscular Volume 93.2 fL (78.0-98.0); Mean Platelet Volume 7.7 fL (7.4-10.4); Platelet Count 283 thou/uL (130-400); RBC Distribution Width 12.5 % (11.5-14.5); Red Blood Cell (RBC) Count 4.53 mill/uL (4.70-6.10)
[2020-08-07] MEDS ORDERED: traMADol HCl 50 MG TAB ONE (23:59)
[2020-08-08] MEDS ORDERED: Mag-Al 1200 mg/1200 mg/30 ML UDCUP ONE (00:05)
[2020-08-08] MEDS ORDERED: Lidocaine Viscous Sol 2% 15 ml UD Cup ONE (00:05)
[2020-08-08 00:17] LABS: ALT (SGPT) 33 U/L (8-55); AST (SGOT) 23 U/L (5-34); Albumin 3.9 g/dL (3.5-5.0); Alkaline Phosphatase 92 U/L (40-110); Anion Gap 16 mmol/L (10-20); BUN (Urea Nitrogen) 12 mg/dL (8.9-20.6); Bilirubin, Total 0.2 mg/dL (0.2-1.2); CK (CPK) 82 U/L (30-200); Calc. Creatinine Clearance 0 mL/min (70-130); Calcium 8.9 mg/dL (7.8-10.44); Carbon Dioxide 22 mmol/L (22-29); Chloride 104 mmol/L (98-107); Estimated GFR-MDRD 89; Globulin 2.9 g/dL (2.4-3.5); Glucose 162 mg/dL (70-105); Potassium 3.8 mmol/L (3.5-5.1); Protein, Total 6.8 g/dL (6.0-8.3); Sodium 138 mmol/L (136-145)
--- NOTE | 2020-08-08 01:16 | PDOC.HHP ---
Hospitalist HPI - History of Present Illness Chest pain and bilateral lower extremity pain History of Present Illness: PCP: The patient is a 39-year-old male with a past medical history significant for CAD x1 (2019), CABG x3 (2018), HTN, HLD and DM2 (lifestyle management) that presents to the emergency department for the above complaint. The patient reports developing bilateral lower extremity pain yesterday afternoon at approximately 4:00. He reports that the pain is located bilaterally below both of his calves. He describes the pain as throbbing. He denies any known trauma. Denies any swelling or erythema. No history of DVT. No recent surgery. He is ambulatory. Denies any weakness. Around 1130 that same evening, he reports developing chest pain while sitting down at home. The pain is located midsternum and epigastric region, described as pressure, intermittent, exacerba vinny with exertion, relieved with a heating pad. He reports that he has never had pain like this before. He has no other associated symptoms. Denies heart palpitations, swelling to lower extremities or lightheadedness. Denies cough, wheezing or shortness of breath. Has no history of COPD/asthma. He is a smoker. Denies nausea, vomiting, diarrhea. He has no urinary symptoms. Patient took a full dose aspirin at home. ED Course: VITAL SIGNS Sat Aug 07, 2020 23:40 MOUNA Harmon Cory BP: 128/90, Pulse: 88, Resp: 17, Temp: 98.4 (Oral), Pain: 8, O2 sat: 97 on (Room Air), Time: 08/07/2020 23:40. Medication administration: traMADol 50 mg Oral Held 00:08 08/08/2020 GI COCKTAIL - WHITE 40 mL Oral Given 00:09 08/08/2020 Hospitalist ROS - Review of Systems All other systems reviewed; all pertinent +/- noted in HPI/Subj - Medication Medications: Brilinta TABLET : Strength - 90 mg : ORAL Patient Dose: 90 mg Oral 2 times a day. aspirin oral TABLET : Strength - 325 mg : ORAL Patient Dose: 1 tab(s) Oral once a day. Plavix tablet : Strength - 75 mg : ORAL Patient Dose: 1 tablet p.o. daily. amiodarone oral tablet : Strength - 100 mg : ORAL Patient Dose: 200 mg p.o. daily atorvastatin tablet : Strength - 20 mg : ORAL Patient Dose: 40 mg p.o. daily Allergies:Imdur, Iodine and Iodide Containing Products, iodine (Unconfirmed), Penicillins, Shellfish Containing Products, shellfish derived (Unconfirmed), Sulfa (Sulfonamide Antibiotics), traMADol Hospitalist History - Past Medical History Source: patient, RN notes reviewed Cardiac: reports: CAD (X1 stent), HTN, [place], Hyperlipidemia Endocrine: reports: Diabetes (Type II, lifestyle management) - Past Surgical History Past Surgical History: reports: CABG (X3 (2018),), Other ( CAD x1 (2019)) - Family History Family History: reports: cardiac disorder (Father) - Social History Smoking Status: Current every day smoker (1 and half pack per day x25 years, currently half pack per day) Tobacco Type: cigarettes Alcohol: reports: Rare Drugs: reports: none Living Situation: With Family Occupation: Does not work Activity level: independent ambulation - Exam General Appearance: NAD, awake alert Eye: anicteric sclera ENT: normocephalic atraumatic Neck: supple, symmetric, no JVD Heart: RRR, no murmur, no gallops, no rubs, normal peripheral pulses Respiratory: CTAB, no wheezes, no rales, no ronchi, normal chest expansion, no tachypnea Gastrointestinal: soft, non-tender, normal bowel sounds, no bruit, no guarding, no rigidity Extremities: no cyanosis, no edema Skin: no rashes Neurological: no focal deficits Psychiatric: normal affect, A&O x 3 Hospitalist Results - Labs Result Diagrams: 08/07/20 23:45 08/08/20 02:53 Lab results: WBC 13.0 thou/uL (4.8-10.8) H 08/07/20 23:45 Hgb 15.2 g/dL (14.0-18.0) 08/07/20 23:45 Hct 42.2 % (42.0-52.0) 08/07/20 23:45 MCV 93.2 fL (78.0-98.0) 08/07/20 23:45 Plt Count 283 thou/uL (130-400) 08/07/20 23:45 Neutrophils % 52.2 % (42.0-75.0) 08/07/20 23:45 Sodium 138 mmol/L (136-145) 08/07/20 23:45 Potassium 3.8 mmol/L (3.5-5.1) 08/07/20 23:45 Chloride 104 mmol/L (98-107) 08/07/20 23:45 Carbon Dioxide 22 mmol/L (22-29) 08/07/20 23:45 BUN 12 mg/dL (8.9-20.6) 08/07/20 23:45 Creatinine 0.94 mg/dL (0.7-1.3) 08/07/20 23:45 Glucose 162 mg/dL (70-105) H 08/07/20 23:45 Calcium 8.9 mg/dL (7.8-10.44) 08/07/20 23:45 Total Bilirubin 0.2 mg/dL (0.2-1.2) 08/07/20 23:45 AST 23 U/L (5-34) 08/07/20 23:45 ALT 33 U/L (8-55) 08/07/20 23:45 Alkaline Phosphatase 92 U/L (40-110) 08/07/20 23:45 Creatine Kinase 82 U/L (30-200) 08/07/20 23:45 Troponin I Less than 0.010 ng/mL (< 0.028) 08/07/20 23:45 Serum Total Protein 6.8 g/dL (6.0-8.3) 08/07/20 23:45 Albumin 3.9 g/dL (3.5-5.0) 08/07/20 23:45 - EKG Interpretation EKG: Normal sinus rhythm, T wave abnormalities, no ST elevation. - Radiology Interpretation Chest x-ray Status: image reviewed by me, pending Hospitalist H&P A/P - Problem (1) Chest pain Code(s): R07.9 - CHEST PAIN, UNSPECIFIED Status: Acute (2) Bilateral lower extremity pain Code(s): M79.604 - PAIN IN RIGHT LEG; M79.605 - PAIN IN LEFT LEG Status: Acute (3) CAD (coronary artery disease) Code(s): I25.10 - ATHSCL HEART DISEASE OF [place] CORONARY ARTERY W/O ANG PCTRS Status: Chronic (4) DM type 2 (diabetes mellitus, type 2) Status: Chronic (5) Dyslipidemia Code(s): E78.5 - HYPERLIPIDEMIA, UNSPECIFIED Status: Chronic (6) Tobacco abuse Code(s): Z72.0 - TOBACCO USE Status: Chronic - Plan Plan: 39/M with PMH CAD, DM 2, HLD, HTN presents for chest pain. Admit to telemetry floor, observation status. Expected length of stay less than 2 midnights. Presented stable vital signs. EKG normal sinus rhythm, T wave abnormalities, no ST elevation. CXR appears no acute process. Troponin negative, CK 82 WBC 13 #Chest pain Heart score 4, Wells PE score 0. Trend troponins, check BNP, FLP, TSH, mag, UA/UDS. Continue aspirin, add Nitropaste and statin. N.p.o. Nuc med cardiac stress test #Bilateral lower extremity pain Unclear etiology. Wells DVT score 0. A: No swelling, erythema, open lesions. Palpable pedal pulses. As needed analgesia. #CAD 1 stent 2019. CABGx 3 in 2018. Takes full dose aspirin, Plavix, Brilinta at home. Restart home antiplatelet medications, hold plavix for now. #DM2 Well controlled with lifestyle changes. Presented BG 162. Mild ISS. ACH S Accu-Cheks. #Dyslipidemia Restart home dose atorvastatin. Check FLP. #Tobacco abuse 1.5 pack/day x 25-year habit. Currently smokes half pack per day. Counseled tobacco cessation. No DVT prophylaxis. No GI prophylaxis. Full code. Discussed the case with Dr. Albert Oneal.
[2020-08-08] MEDS ORDERED: HumaLOG 300 UNITS/3 ML VIAL SC PRN ×2 (02:04)
[2020-08-08] MEDS ORDERED: HYDROcodone/Acetaminophen 5/325 mg Tablet PO PRN (02:04)
[2020-08-08] MEDS ORDERED: Ondansetron ODT 4 MG TAB PO PRN (02:04)
[2020-08-08] MEDS ORDERED: Ondansetron PF 4 MG/2 ML Vial IVP PRN (02:04)
[2020-08-08] MEDS ORDERED: Dextrose 5% in Water 1,000 ML IV PRN (02:04)
[2020-08-08] MEDS ORDERED: Dextrose 50% Abboject 50 ML SYRINGE SLOW IVP PRN (02:04)
[2020-08-08] MEDS ORDERED: Acetaminophen 325 MG TAB PO PRN (02:04)
[2020-08-08 03:23] LABS: Anion Gap 14 mmol/L (10-20); BUN (Urea Nitrogen) 12 mg/dL (8.9-20.6); Calc. Creatinine Clearance 0 mL/min (70-130); Calcium 9.1 mg/dL (7.8-10.44); Carbon Dioxide 22 mmol/L (22-29); Chloride 105 mmol/L (98-107); Estimated GFR-MDRD Greater than 90; Glucose 106 mg/dL (70-105); Magnesium 2.3 mg/dL (1.6-2.6); Potassium 4.1 mmol/L (3.5-5.1); Sodium 137 mmol/L (136-145)
[2020-08-08 03:27] LABS: Troponin I Less than 0.010 ng/mL (< 0.028)
[2020-08-08 03:44] LABS: Cardiac Risk 4.7 (Less than 4.5)
[2020-08-08] MEDS: Nitroglycerin 2% Ointment 1 INCH/1 GM Packet TOP SCH ×3 (05:46→19:29)
[2020-08-08] MEDS: HYDROcodone/Acetaminophen 5/325 mg Tablet PO PRN ×5 (05:54→23:48)
[2020-08-08 06:03] LABS: #Basophils 0.1 thou/uL (0.0-0.2); #Eosinphils 0.6 thou/uL (0.0-0.7); #Monocytes 0.9 thou/uL (0.11-0.59); #Neutrophils 5.5 thou/uL (1.40-6.50); %Basophils 0.6 % (0.0-1.0); %Eosinophils 5.6 % (0.0-10.0); %Lymphocytes 30.1 % (21.0-51.0); %Monocytes 8.8 % (0.0-10.0); %Neutrophils 54.9 % (42.0-75.0); Hemoglobin 14.7 g/dL (14.0-18.0); Mean Corpuscular HGB CONC 34.2 g/dL (32.0-36.0); Mean Corpuscular Hemoglobin 32.5 pg (27.0-31.0); Mean Corpuscular Volume 95.1 fL (78.0-98.0); Mean Platelet Volume 7.4 fL (7.4-10.4); Platelet Count 265 thou/uL (130-400); RBC Distribution Width 12.6 % (11.5-14.5); Red Blood Cell (RBC) Count 4.52 mill/uL (4.70-6.10)
[2020-08-08 06:08] VITALS: BMI 38.5
[2020-08-08 06:13] LABS: Bacteria/HPF None Seen HPF (None Seen); Bilirubin Negative (Negative); Blood, Urine Negative (Negative); Clarity Clear (Clear); Glucose, Urine (Dipstick) Normal (Negative); Ketone, Urine Negative (Negative); Leukocyte Negative Leu/uL (Negative); Nitrite Negative (Negative); Protein, Urine (Dipstick) Negative (Neg-Trace); RBC/HPF 0-3 HPF (0-3); Specific Gravity, Urine 1.021 (1.002-1.036); Squamous Epithelial 0-3 HPF (0-3); Urobilinogen Normal mg/dL (Less than 2); WBC/HPF 0-3 HPF (0-3); pH, Urine 5.5 (5.0-9.0)
[2020-08-08 06:28] LABS: Troponin I 0.021 ng/mL (< 0.028)
[2020-08-08 07:25] LABS: Amphetamine Not Detected (NotDetected); Benzodiazepine Screen Detected (NotDetected); Cocaine Metabolite Screen Not Detected (NotDetected); Medtox Reader # READER 4; Methamphetamine Not Detected (NotDetected); Opiate Screen Detected (NotDetected); Phencyclidine (PCP) Not Detected (NotDetected); THC/Cannabinoid Screen Not Detected (NotDetected)
[2020-08-08 07:26] LABS: Barbiturates Screen Not Detected (NotDetected); Medtox Control Line Valid? VALID (VALID); Methadone Not Detected (NotDetected); Oxycodone Screen Not Detected (NotDetected); Tricyclic Screen Detected (NotDetected)
--- NOTE | 2020-08-08 08:12 | RAD ---
PORTABLE CHEST: Date: 08/07/2020 HISTORY: Chest pain. Bilateral leg pain. COMPARISON: 07/28/2020 exam. FINDINGS: Heart size is upper limits with postop sternotomy change. Lungs are clear of infiltrates. No signs of failure. IMPRESSION: No active intrathoracic disease. POS: [facility]
[2020-08-08] MEDS: Amiodarone 200 MG TAB PO SCH (08:58)
[2020-08-08] MEDS: Morphine 2 MG/ML VIAL SLOW IVP PRN ×4 (08:58→21:15)
[2020-08-08] MEDS: TICAGRELOR 90 MG TABLET PO SCH ×2 (08:58→19:29)
[2020-08-08] MEDS: Aspirin 81 mg Enteric Coated Tablet PO SCH (08:58)
[2020-08-08] MEDS ORDERED: Clopidogrel Bisulfate 75 MG TAB PO SCH (09:00)
[2020-08-08] MEDS ORDERED: Aspirin 325 mg Enteric Coated Tablet PO SCH (09:00)
--- NOTE | 2020-08-08 11:41 | CON ---
DATE OF CONSULTATION: 08/08/2020 REASON FOR CONSULTATION: Chest pain. PRIMARY AFFIRMATIVE ACTION SPECIALIST: Dr. Robert Chamorro. HISTORY OF PRESENT ILLNESS: Mr. Batres is a pleasant 39-year-old black gentleman who comes to the hospital for chest pain. He has been seen and evaluated by Dr. Cabrera in this hospital in the past. He has a significant history of coronary artery disease. He has had stenting in the past. He has had also bypass surgery. He has chronic chest pain and he has had several admissions for the same reason. Most recently about over a year ago, he was here with chest pain. He had a stent more recently at [facility]. This was before the last admission and he has had noncompliance with his medications. Currently, he is clutching his chest as I walk in the room. His troponins are completely normal. His EKG is completely normal. I explained to him that this is unlikely to be related to his heart and he immediately jumps and tells me that he knows what his heart pain feels like and this is not but that as he feels this is just his normal chest pain from whatever recently might come from. Otherwise, denies any shortness of breath. PAST MEDICAL HISTORY: 1. Coronary artery disease, status post CABG and more recently stenting. 2. Hypertension. 3. Hyperlipidemia. 4. Type 2 diabetes. PAST SURGICAL HISTORY: 1. CABG x3 in 2018. 2. Stenting in 2019. FAMILY HISTORY: Father with heart disease. OUTPATIENT MEDICATIONS: 1. Brilinta 90 mg twice a day. 2. Aspirin 81 mg once a day. 3. Amiodarone 100 mg a day. 4. Plavix 75 mg a day. 5. Atorvastatin 80 mg at bedtime. ALLERGIES: 1. PENICILLIN. 2. IODINE. 3. SHELLFISH. 4. SULFA DRUGS. SOCIAL HISTORY: Smokes 1/2 packs per day for the last 25 years, currently only half a pack. Social alcohol use. No drug use. REVIEW OF SYSTEMS: A 12-point review of systems was done and all negative other than stated in the History of Present Illness. PHYSICAL EXAMINATION: VITAL SIGNS: Temperature 98.3, pulse 80, respiratory rate 16, sat 94% on room air, and blood pressure 128/78. GENERAL: Awake, alert, and oriented x3, in obvious pain. HEENT: Normocephalic, atraumatic. NECK: Supple. LUNGS: Clear. CARDIOVASCULAR: S1, S2. No S3 or S4. No murmurs. No rubs. ABDOMEN: Soft. Positive bowel sounds. EXTREMITIES: No edema. SKIN: Warm and dry. LABORATORY DATA: Laboratory work was reviewed. White count of 13 on arrival, down to 10; hemoglobin of 15 down to 14, hematocrit 42, and platelet count 283. Chemistries were unremarkable except for a glucose of 106. Troponin has been negative x4, and BNP is less than assay limit. TSH was normal. UA was unremarkable. Toxicology was positive for opiates, tricyclics, and benzodiazepine. Chest x-ray was unremarkable. EKG was unremarkable. ASSESSMENT AND PLAN: 1. Chest pain, noncardiac, most likely. 2. History of coronary artery disease. No evidence of acute coronary syndrome. 3. Chronic pain. PLAN: At this point, he has completely undetectable troponins and a normal EKG. His pain he states does not any worse similar to what his heart pain has been in the past. He feels this is just his chronic pain syndrome. I do not think that we need to do any further risk stratification at this point. We will get an echocardiogram and if that is unchanged from before, then no more further cardiac workup would be indicated. Thank you for letting us to participate in the care of your patient and Dr. 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 We will follow up in the morning. Job ID: [id number]
[2020-08-08 11:43] LABS: SARS-CoV-2 MS2 Positive; SARS-CoV-2 N Gene Negative; SARS-CoV-2 S Gene Negative; SARS-CoV-2 by NAA Not Detected (NotDetected); SARS-CoV-2 orf1ab Negative
[2020-08-08] MEDS ORDERED: Atorvastatin Calcium 40 MG TAB PO SCH (21:00)
[2020-08-09] MEDS: Morphine 2 MG/ML VIAL SLOW IVP PRN ×3 (01:27→09:55)
[2020-08-09] MEDS: Nitroglycerin 2% Ointment 1 INCH/1 GM Packet TOP SCH ×2 (02:22→13:14)
[2020-08-09 04:02] LABS: #Basophils 0.1 thou/uL (0.0-0.2); #Eosinphils 0.7 thou/uL (0.0-0.7); #Lymphocytes 3.6 thou/uL (1.20-3.40); #Monocytes 0.6 thou/uL (0.11-0.59); %Basophils 1.1 % (0.0-1.0); %Lymphocytes 39.8 % (21.0-51.0); %Monocytes 6.5 % (0.0-10.0); %Neutrophils 44.6 % (42.0-75.0); Hemoglobin 14.7 g/dL (14.0-18.0); Mean Corpuscular HGB CONC 34.8 g/dL (32.0-36.0); Mean Corpuscular Hemoglobin 32.9 pg (27.0-31.0); Mean Corpuscular Volume 94.5 fL (78.0-98.0); Mean Platelet Volume 8.4 fL (7.4-10.4); Platelet Count 280 thou/uL (130-400); RBC Distribution Width 12.7 % (11.5-14.5); Red Blood Cell (RBC) Count 4.48 mill/uL (4.70-6.10)
[2020-08-09] MEDS: HYDROcodone/Acetaminophen 5/325 mg Tablet PO PRN (04:06)
[2020-08-09 04:24] LABS: ALT (SGPT) 51 U/L (8-55); AST (SGOT) 42 U/L (5-34); Albumin 3.8 g/dL (3.5-5.0); Alkaline Phosphatase 78 U/L (40-110); Anion Gap 15 mmol/L (10-20); BUN (Urea Nitrogen) 11 mg/dL (8.9-20.6); Bilirubin, Total 0.4 mg/dL (0.2-1.2); Calc. Creatinine Clearance 165 mL/min (70-130); Calcium 8.6 mg/dL (7.8-10.44); Carbon Dioxide 22 mmol/L (22-29); Chloride 106 mmol/L (98-107); Estimated GFR-MDRD 89; Globulin 2.8 g/dL (2.4-3.5); Glucose 163 mg/dL (70-105); Potassium 4.1 mmol/L (3.5-5.1); Protein, Total 6.6 g/dL (6.0-8.3); Sodium 139 mmol/L (136-145)
[2020-08-09] MEDS: Aspirin 81 mg Enteric Coated Tablet PO SCH (09:57)
[2020-08-09] MEDS: Amiodarone 200 MG TAB PO SCH (09:57)
[2020-08-09] MEDS: TICAGRELOR 90 MG TABLET PO SCH (09:57)
[2020-08-09 10:20] VITALS: TEMP 98.6
--- NOTE | 2020-08-09 12:28 | PRG ---
DATE OF SERVICE: 08/09/2020 SUBJECTIVE: Mr. Batres continues to have chest pain. His cardiac enzymes are all normal. The pain is not duplicated with palpation. He says it feels deeper. OBJECTIVE: VITAL SIGNS: Blood pressure has been variable, it was 120/54, then 163/80, 108/51, lot of variation. LUNGS: Clear. CARDIAC: Normal S1, normal S2. ABDOMEN: Soft, nontender. ASSESSMENT: 1. Previous bypass surgery. 2. Previous stent implantation done at [facility]. 3. Hypercholesterolemia, well controlled. 4. Negative cardiac enzymes. No ischemic changes on EKG. 5. Chronic chest pain. PLAN: 1. Continue dual anti-platelet drugs and continue statin. 2. He will follow up with Dr. Chamorro, who placed the stent most recently in him. The patient states he is still getting prescriptions from Dr. Chamorro's office with him concerning any further recommendations. 3. It would be reasonable to add low-dose beta-delisa. Job ID: [id number]
[2020-08-09 13:10] VITALS: BP 101/73
--- NOTE | 2020-08-09 17:40 | DIS ---
DATE OF ADMISSION: 08/08/2020 DATE OF DISCHARGE: 08/09/2020 DISCHARGE DISPOSITION: Home. FOLLOWUP: Follow up with Dr. Arely Wall in one week. DISCHARGE MEDICATIONS: Same as admission medication. No changes were made. Patient was seen and examined on the day of discharge. Denies any new complaints. No new chest pain, shortness of breath, or palpitations reported. BRIEF HOSPITAL COURSE: The patient is a 39-year-old male, with coronary artery disease, status post stent and coronary artery bypass grafting, presented to the emergency room with chest discomfort. Please refer to the history and physical dated 08/08 for further details. The patient was admitted to the hospital with a diagnosis of chest discomfort, rule out acute coronary syndrome. His serial troponins remained negative. Patient was evaluated by Cardiology, Dr. Cabrera. Dr. Cabrera recommended to continue dual antiplatelet treatment along with statins. Toprol-XL 25 mg daily was added. All other home medications were left unchanged. He was advised to follow up with primary petroleum inspector supervisor as outpatient. A prescription for sublingual nitroglycerin was also sent. FINAL DIAGNOSES: 1. Chest discomfort, acute coronary syndrome ruled out. 2. Coronary artery disease, status post stent placement and coronary artery bypass grafting. 3. Diabetes mellitus, type 2. 4. Dyslipidemia. 5. Tobacco dependence. 6. History of chronic chest pain. 7. Chronic kidney disease, stage 2. Job ID: [id number]
[2020-08-10] MEDS ORDERED: Amiodarone 200 MG TAB PO SCH (09:00)
--- NOTE | 2020-08-11 08:17 | EKG ---
Test Reason : Blood Pressure : / mmHG Vent. Rate : 082 BPM Atrial Rate : 082 BPM P-R Int : 162 ms QRS Dur : 086 ms QT Int : 392 ms P-R-T Axes : 040 074 101 degrees QTc Int : 457 ms Normal sinus rhythm Nonspecific ST abnormality Abnormal ECG When compared with ECG of 07-AUG-2020 23:41, (Unconfirmed) No significant change was found Confirmed by ROSA MARIA GOMEZ (2) on 08/11/2020 8:17:08 AM Referred By: FAROOQ Confirmed By:ROSA MARIA GOMEZ
== END 2020-08-09 13:34 | disposition home or self-care (01) ==
LOC: ERS 23:32 → 2NO 08-08 01:17
PROVIDERS: ADMIT Internal Medicine; ATTEND Internal Medicine
DX: R07.89 Other chest pain (principal); E11.22 Type 2 diabetes mellitus with diabetic chronic kidney disease; N18.2 Chronic kidney disease, stage 2 (mild); I25.10 Atherosclerotic heart disease of native coronary artery without angina pectoris; E78.5 Hyperlipidemia, unspecified; F17.210 Nicotine dependence, cigarettes, uncomplicated; I25.2 Old myocardial infarction; M79.604 Pain in right leg; M79.605 Pain in left leg; Z79.02 Long term (current) use of antithrombotics/antiplatelets; Z79.82 Long term (current) use of aspirin; Z79.899 Other long term (current) drug therapy; Z88.0 Allergy status to penicillin; Z88.2 Allergy status to sulfonamides; Z88.5 Allergy status to narcotic agent; Z88.8 Allergy status to other drugs, medicaments and biological substances; Z91.013 Allergy to seafood; Z91.041 Radiographic dye allergy status; Z95.1 Presence of aortocoronary bypass graft; Z95.5 Presence of coronary angioplasty implant and graft; Z20.828 Contact with and (suspected) exposure to other viral communicable diseases
CPT/HCPCS: 36415; 36416; 71045; 80048; 80053; 80061; 80306; 81001; 82550; 83735; 83880; 84443; 84484; 85025; 87635; 93005; 93010; 94760; 96374; G0378; J2270; U0003

== ENCOUNTER 2020-08-14 12:00 | Observation (INO) | payer SELFPAY ==
[2020-08-14] MEDS ORDERED: Nitroglycerin 2% Ointment 1 INCH/1 GM Packet ONE (12:34)
[2020-08-14] MEDS ORDERED: Ketorolac Tromethamine 30 MG/ML VIAL ONE (12:44)
[2020-08-14 12:49] LABS: #Basophils 0.1 thou/uL (0.0-0.2); #Eosinphils 0.6 thou/uL (0.0-0.7); #Lymphocytes 3.8 thou/uL (1.20-3.40); #Monocytes 0.8 thou/uL (0.11-0.59); %Basophils 0.8 % (0.0-1.0); %Eosinophils 5.4 % (0.0-10.0); %Lymphocytes 33.9 % (21.0-51.0); %Monocytes 6.7 % (0.0-10.0); %Neutrophils 53.2 % (42.0-75.0); Hemoglobin 15.4 g/dL (14.0-18.0); Mean Corpuscular HGB CONC 35.1 g/dL (32.0-36.0); Mean Corpuscular Hemoglobin 32.7 pg (27.0-31.0); Mean Corpuscular Volume 93.1 fL (78.0-98.0); Mean Platelet Volume 7.7 fL (7.4-10.4); Platelet Count 281 thou/uL (130-400); RBC Distribution Width 12.8 % (11.5-14.5); Red Blood Cell (RBC) Count 4.72 mill/uL (4.70-6.10); White Blood Cell (WBC) Count 11.2 thou/uL (4.8-10.8)
[2020-08-14 13:14] LABS: ALT (SGPT) 46 U/L (8-55); AST (SGOT) 22 U/L (5-34); Albumin 4.3 g/dL (3.5-5.0); Alkaline Phosphatase 88 U/L (40-110); Anion Gap 15 mmol/L (10-20); BUN (Urea Nitrogen) 8 mg/dL (8.9-20.6); Bilirubin, Total 0.2 mg/dL (0.2-1.2); Calc. Creatinine Clearance 0 mL/min (70-130); Calcium 9.3 mg/dL (7.8-10.44); Carbon Dioxide 23 mmol/L (22-29); Chloride 105 mmol/L (98-107); Estimated GFR-MDRD Greater than 90; Globulin 3.1 g/dL (2.4-3.5); Glucose 99 mg/dL (70-105); Lipase 36 U/L (8-78); Potassium 3.6 mmol/L (3.5-5.1); Protein, Total 7.4 g/dL (6.0-8.3); Sodium 139 mmol/L (136-145)
[2020-08-14] MEDS ORDERED: Nitroglycerin 0.4 MG TAB 1 EACH ONE (14:02)
[2020-08-14] MEDS ORDERED: Cyclobenzaprine 10 MG TAB PO PRN (14:30)
[2020-08-14] MEDS ORDERED: Morphine 4 MG/ML VIAL ONE ×2 (14:41→16:41)
[2020-08-14] MEDS ORDERED: Acetaminophen 500 MG TAB PO PRN (15:33)
[2020-08-14] MEDS ORDERED: Ondansetron PF 4 MG/2 ML Vial IVP PRN (15:34)
[2020-08-14] MEDS ORDERED: Ondansetron PF 4 MG/2 ML Vial ONE (15:34)
[2020-08-14] MEDS ORDERED: Acetaminophen 500 MG TAB ONE (15:34)
--- NOTE | 2020-08-14 15:42 | HP ---
CHIEF COMPLAINT: Chest pain and neck pain. HISTORY OF PRESENT ILLNESS: The patient is a 39-year-old male, who was just recently discharged from the hospital on 08/09, who presents to the hospital with complaints of chest pain and left-sided neck pain x1 day. The patient states that he woke up this morning, started having left-sided neck pain. He denies lifting anything heavy or any trauma. The patient states that he always has chest pressure; however, this pain in his neck was something new, so he wanted to come and get evaluated. He also complains of left thigh pain at a certain spot, which started about two days and is progressively getting worse. He denies any fevers or chills, any nausea, vomiting, or diarrhea. He denies any shortness of breath. PAST MEDICAL HISTORY: He has a history of CAD status post CABG and stent. He has a history of hypertension, epilepsy, Crohn disease, seizure disorder, kidney stone, and epididymitis. PAST SURGICAL HISTORY: He had a coronary artery bypass, three-vessel and three cardiac stents, last one was put in [address] Chamorro. SOCIAL HISTORY: He lives at home with his family. Denies any alcohol use or drug use. He states that he has stopped smoking about 4 weeks ago; however, he was a former smoker. He is a full code. ALLERGIES: HE IS ALLERGIC TO IMDUR, ITCHING; IODINE; PENICILLIN; AND SULFA. MEDICATIONS: 1. Lipitor 20 mg at bedtime. 2. Klonopin 0.5 q.6 hours. 3. Fluoxetine 30 mg daily. 4. MS Contin 30 mg b.i.d. p.r.n. 5. Seroquel 800 mg at bedtime. 6. Aspirin 81 mg daily. 7. Brilinta 90 mg b.i.d. REVIEW OF SYSTEMS: All negative except for the ones mentioned above in the HPI. PHYSICAL EXAMINATION: VITAL SIGNS: As of the following; temperature of 98.4, blood pressure 127/95, heart rate 77, respiratory rate 20, and O2 saturations 99% on room air. GENERAL: He is awake, alert, and oriented x3. Does not appear in any distress. CV: S1 and S2 present. No murmurs, rubs, or gallops. CHEST: He has a mid sternum scar. LUNGS: Clear to auscultation. ABDOMEN: Soft and nontender. Bowel sounds are present x2. EXTREMITIES: He got +1 lower extremity edema. Lower extremity, he does have pain upon palpation of his left inner thigh area. There is no redness or erythema noted. NEUROVASCULAR: No focal deficits noted. HEENT: He does have pain upon palpation around his left neck area, which is pretty tender on palpation. LABORATORY RESULTS: As of the following, EKG no significant changes from prior. Troponin x1 negative. His sodium of 139, potassium 3.6, BUN of 8, and creatinine 0.82. WBCs of 11.1, hemoglobin of 15.4, and hematocrit of 44.0. He did have a chest x-ray, which according to my interpretation, no acute abnormalities noted. ASSESSMENT AND PLAN: The patient is a 39-year-old man, who presents to the hospital with complaints of chest pain, neck pain. 1. Atypical chest pain. The patient states that he has always had chest pain; however, he has been having left-sided neck pain. We will start the patient on some pain medication and also add a muscle relaxant. I will check blood pressures in both arms. The patient is allergic to iodine, so cannot do a CTA to rule out possible dissection. We maybe get an MRI with contrast. The patient denies any heavy lifting. 2. Coronary artery disease. We will continue his home medications. 3. Hypertension. We will continue his home medications. 4. Deep venous thrombosis prophylaxis. We will put the patient on subcu heparin. Also, we will get a lower extremity Doppler for the pain that he is having to rule out any kind of deep venous thrombosis. Job ID: [id number]
[2020-08-14 15:46] LABS: Troponin I 0.011 ng/mL (< 0.028)
--- NOTE | 2020-08-14 16:14 | RAD ---
PORTABLE UPRIGHT FRONTAL CHEST RADIOGRAPH: 08/14/20 COMPARISON: 08/07/20. HISTORY: Chest pain. FINDINGS: Stable prominence of the cardiac silhouette and midline sternotomy wires. No pneumothorax, pleural fl uid, focal consolidation or alveolar edema. IMPRESSION: No acute findings - stable appearance of the chest. POS: [facility]
[2020-08-14] MEDS ORDERED: Lorazepam 2 MG/ML VIAL ONE (16:41)
[2020-08-14] MEDS: Morphine 4 MG/ML VIAL SLOW IVP PRN ×2 (17:05→22:05)
--- NOTE | 2020-08-14 18:26 | MRI ---
EXAM: MRA Angio Neck W/O Contrast DATE: 08/14/2020 5:48 PM INDICATION: Rule out carotid dissection COMPARISON: None. FINDING: Motion artifact slightly limits image detail. No definite hemodynamically significant steno sis, occlusion or aneurysmal formation is demonstrated. IMPRESSION:Limitations in exam due to motion artifact. No definite hemodynamically significant stenos is, occlusion or aneurysmal formation demonstrated.
[2020-08-14 18:47] VITALS: BMI 39.6
[2020-08-14 19:51] LABS: Troponin I 0.011 ng/mL (< 0.028)
[2020-08-14] MEDS: TICAGRELOR 90 MG TABLET PO SCH (20:31)
[2020-08-14] MEDS ORDERED: Atorvastatin Calcium 40 MG TAB PO SCH (21:00)
--- NOTE | 2020-08-14 23:03 | ULT ---
BILATERAL LOWER EXTREMITY VENOUS DOPPLER EVALUATION PROVIDED CLINICAL HISTORY: Bilateral lower extremity pain TECHNIQUE: Grayscale, color doppler and spectral doppler images were obtained of the common femoral , femoral, profunda femoral, popliteal and posterior tibial veins of both lower extremities. FINDINGS: There is normal compression, flow and augmentation seen with the deep venous structures within both l ower extremities. IMPRESSION: No sonographic evidence for lower extremity deep venous thrombosis.
[2020-08-15] MEDS: Nitroglycerin 0.4 MG TAB (25 Tab Bottle) SL PRN ×2 (03:39→04:35)
[2020-08-15 05:21] LABS: #Basophils 0.1 thou/uL (0.0-0.2); #Eosinphils 0.7 thou/uL (0.0-0.7); #Lymphocytes 4.1 thou/uL (1.20-3.40); #Monocytes 0.9 thou/uL (0.11-0.59); #Neutrophils 5.9 thou/uL (1.40-6.50); %Eosinophils 6.2 % (0.0-10.0); %Lymphocytes 34.8 % (21.0-51.0); %Monocytes 7.6 % (0.0-10.0); %Neutrophils 50.5 % (42.0-75.0); Hemoglobin 14.4 g/dL (14.0-18.0); Mean Corpuscular HGB CONC 34.2 g/dL (32.0-36.0); Mean Corpuscular Hemoglobin 32.3 pg (27.0-31.0); Mean Corpuscular Volume 94.5 fL (78.0-98.0); Mean Platelet Volume 7.8 fL (7.4-10.4); Platelet Count 281 thou/uL (130-400); RBC Distribution Width 12.7 % (11.5-14.5); Red Blood Cell (RBC) Count 4.45 mill/uL (4.70-6.10); White Blood Cell (WBC) Count 11.7 thou/uL (4.8-10.8)
[2020-08-15 05:40] LABS: Anion Gap 14 mmol/L (10-20); BUN (Urea Nitrogen) 14 mg/dL (8.9-20.6); Calc. Creatinine Clearance 172 mL/min (70-130); Calcium 8.8 mg/dL (7.8-10.44); Carbon Dioxide 24 mmol/L (22-29); Chloride 106 mmol/L (98-107); Estimated GFR-MDRD Greater than 90; Glucose 105 mg/dL (70-105); Potassium 4.1 mmol/L (3.5-5.1); Sodium 140 mmol/L (136-145)
[2020-08-15] MEDS: Morphine 4 MG/ML VIAL SLOW IVP PRN (06:11)
[2020-08-15 07:21] VITALS: BP 129/74; TEMP 97.6
[2020-08-15] MEDS ORDERED: Aspirin Chewable 81 MG TAB PO SCH (08:00)
--- NOTE | 2020-08-15 08:45 | PDOC.HOSPP ---
- Subjective Encounter Date: 08/15/20 Encounter Time: 08:45 Subjective: Patient seen and examined. No new complaints. No overnight events. Patient endorses discomfort to left chest and left neck, improved with pain medications and muscle relaxers. Denies any heart palpitations, SOB, abdominal pain, N/V/D. Denies any focal motor deficits or difficulty with speech. - Objective Vital Signs & Weight: Vital Signs (12 hours) Temp Pulse Resp BP BP Pulse Ox 08/15/20 07:20 97.6 F 74 20 129/74 95 08/15/20 04:38 78 101/62 08/15/20 03:17 98.1 F 76 16 101/61 95 08/15/20 01:58 CLAIMS ADJUSTOR 76 16 111/61 94 L 08/15/20 00:40 97.8 F 75 16 95/51 L 90 L Weight Weight 245 lb 8 oz I&O: 08/14/20 08/15/20 08/16/20 07:59 06:59 06:59 Intake Total Balance Result Diagrams: 08/15/20 04:41 08/15/20 04:41 Hospitalist ROS - Review of Systems Constitutional: denies: fever, chills Respiratory: denies: cough, shortness of breath, hemoptysis Cardiovascular: reports: chest pain (left side, discomfort, chronic). denies: palpitations, edema, light headedness Gastrointestinal: denies: nausea, vomiting, abdominal pain, diarrhea, constipation, melena, hematochezia Musculoskeletal: reports: neck pain (left sided) Neurological: denies: weakness, change in speech All other systems reviewed; all pertinent +/- noted in HPI/Subj - Medication Medications: Active Medications Generic Name Dose Route Start Last Admin Trade Name Freq PRN Reason Stop Dose Admin Acetaminophen 1,000 mg 08/14/20 15:33 08/14/20 15:51 Acetaminophen 500 Mg Tab PO 1,000 mg Q8H PRN Administration Moderate to Severe Pain (6-10) Atorvastatin Calcium 80 mg 08/14/20 21:00 08/14/20 20:30 Atorvastatin Calcium 40 Mg Tab PO 80 mg HS LINH Administration Cyclobenzaprine HCl 10 mg 08/14/20 14:30 08/15/20 01:55 CLAIMS ADJUSTOR Cyclobenzaprine 10 Mg Tab PO 10 mg TID PRN Administration Muscle Spasm Morphine Sulfate 4 mg 08/14/20 14:16 08/15/20 06:11 Morphine 4 Mg/Ml Vial SLOW IVP 4 mg Q4H PRN Administration Pain Nitroglycerin 0.4 mg 08/14/20 14:16 08/15/20 04:35 Nitroglycerin 0.4 Mg Tab (25 Tab Bottle) SL 1 tab Q5MIN PRN Administration Chest Pain Ondansetron HCl 4 mg 08/14/20 15:34 08/14/20 15:53 Ondansetron Pf 4 Mg/2 Ml Vial IVP 4 mg Q6H PRN Administration Nausea/Vomiting Ticagrelor 90 mg 08/14/20 21:00 08/14/20 20:31 Ticagrelor 90 Mg Tablet PO 90 mg BID LINH Administration - Exam General Appearance: NAD, awake alert. negative: ill appearing Eye: PERRL, anicteric sclera ENT: normocephalic atraumatic Neck: supple, symmetric, no JVD Heart: RRR, no murmur, no gallops, no rubs, normal peripheral pulses Respiratory: CTAB, no wheezes, no rales, no ronchi, normal chest expansion Gastrointestinal: soft, non-tender, normal bowel sounds, no guarding, no rigidity Extremities: no cyanosis, no edema Neurological: cranial nerve grossly intact, no weakness, no focal deficits Musculoskeletal: normal tone, normal strength Psychiatric: normal affect, A&O x 3 Hosp A/P (1) Atypical chest pain Code(s): R07.89 - OTHER CHEST PAIN Status: Acute (2) CAD (coronary artery disease) Code(s): I25.10 - ATHSCL HEART DISEASE OF [place] CORONARY ARTERY W/O ANG PCTRS Status: Chronic (3) HTN (hypertension) Code(s): I10 - ESSENTIAL (PRIMARY) HYPERTENSION Status: Chronic (4) Epilepsy Code(s): G40.909 - EPILEPSY, UNSP, NOT INTRACTABLE, WITHOUT STATUS EPILEPTICUS Status: Chronic (5) Anxiety Code(s): F41.9 - ANXIETY DISORDER, UNSPECIFIED Status: Chronic - Plan #Atypical chest pain troponins flat EKG no ST elevations, signs of ischemia MRI neck negative for acute process. Likely musculoskeletal in nature, continue flexeril prn. D/C opioids. #CAD Continue ASA and Brilinta #HTN Continue Amio and BB #Epilepsy Restart home dose of keppra and Dilantin. #Anxiety Denies SI/HI. Restart home dose Buspar and duloxetine. Discussed case with Dr. Menchaca.
[2020-08-15] MEDS ORDERED: busPIRone HCl 10 MG TAB PO SCH (09:00)
[2020-08-15] MEDS ORDERED: Enoxaparin Sodium 40 MG/0.4 ML SYRINGE SC SCH (09:00)
[2020-08-15] MEDS ORDERED: Amiodarone 200 MG TAB PO SCH (09:00)
[2020-08-15] MEDS ORDERED: levETIRAcetam 500 MG TAB PO SCH (09:00)
[2020-08-15] MEDS: TICAGRELOR 90 MG TABLET PO SCH (09:12)
--- NOTE | 2020-08-15 11:49 | DIS ---
PCP: Dr. Wall DATE OF ADMISSION: 08/14/2020 DATE OF DISCHARGE: 08/15/2020 DIAGNOSES: 1. Chest pain, atypical. 2. Neck pain, left sided. 3. CAD. 4. Epilepsy. 5. Anxiety. 6. Covid test negative. CONDITION: Stable. I have examined the patient on the day of discharge. His vital signs are stable. He still reports chronic chest discomfort to the left side of his chest, denies any heart palpitations, lightheadedness, shortness of breath, or focal motor deficit. S1, S2 auscultated. Lungs are clear bilaterally. CONSULTS: None. HOSPITAL COURSE: The patient is a 39-year-old male, recently discharged from the hospital on 08/09, who presented to the hospital with complaints of chest pain and left-sided neck pain x1 day. The patient has been having chest pain for some time now, however, the neck pain was new symptom. In the ER, initial EKG showed to be sinus rhythm with no ST elevations. Chest x-ray was negative for any acute process. Initial troponin was negative. Unable to perform CTA of the neck,to rule out carotid dissection secondary to the patient's iodine allergy. The patient underwent an MRI angio of the neck with and without contrast, which showed no definite hemodynamically significant stenosis, occlusion or aneurysmal formation demonstrated. The troponins were trended, which were shown to be flat at 0.010, 0.011, and 0.011. The patient was started on a regimen of morphine and Flexeril p.r.n., which did help reduce his symptoms. Cardiac etiology has been ruled out. Therefore, it is likely musculoskeletal related. The patient will be discharged home and followup with his PCP within a week. MEDICATIONS AT DISCHARGE: 1. Flexeril 10 mg p.o. t.i.d. p.r.n. muscle spasms. 2. Amiodarone 100 mg p.o. daily. 3. Aspirin 81 mg p.o. q.a.m. with meals. 4. Atorvastatin 80 mg p.o. at bedtime. 5. Buspirone 10 mg p.o. b.i.d. 6. Duloxetine 80 mg p.o. at bedtime. 7. Hydroxyzine 50 mg p.o. at bedtime. 8. Metoprolol succinate 25 mg p.o. daily. 9. Seroquel 150 mg p.o. at bedtime. 10. Brilinta 90 mg p.o. b.i.d. 11. Nitroglycerin, Nitrostat tablet 0.4 mg p.o. q.5 minutes p.r.n. chest pain. FOLLOWUP: Follow up with PCP, Dr. Wall in 5 days. DIET: Heart healthy, low-sodium diet. ACTIVITY: As tolerated. DISPOSITION: Home with PCP followup. Time spent on this discharge was approximately 20 minutes. Job ID: [id number] [facility]
[2020-08-15] MEDS ORDERED: DULoxetine 60 MG CAP PO SCH (21:00)
[2020-08-15] MEDS ORDERED: hydrOXYzine 25 MG TAB PO SCH (21:00)
--- NOTE | 2020-08-18 19:31 | EKG ---
Test Reason : Blood Pressure : / mmHG Vent. Rate : 079 BPM Atrial Rate : 079 BPM P-R Int : 154 ms QRS Dur : 084 ms QT Int : 412 ms P-R-T Axes : 055 078 088 degrees QTc Int : 472 ms Normal sinus rhythm Nonspecific ST abnormality Abnormal ECG When compared with ECG of 08-AUG-2020 09:15, No significant change was found Confirmed by MADDIE MANRIQUEZ, . S. (4) on 08/18/2020 7:31:25 PM Referred By: YUAN EDMOND Confirmed By:DR. Juliana PERKINS MD
== END 2020-08-15 11:53 | disposition home or self-care (01) ==
LOC: ERS 12:00 → ERHOLD 13:52 → 2SW 17:46
PROVIDERS: ADMIT Internal Medicine; ATTEND Internal Medicine
DX: R07.89 Other chest pain (principal); M54.2 Cervicalgia; I25.10 Atherosclerotic heart disease of native coronary artery without angina pectoris; G40.909 Epilepsy, unspecified, not intractable, without status epilepticus; F41.9 Anxiety disorder, unspecified; I10 Essential (primary) hypertension; K50.90 Crohn's disease, unspecified, without complications; Z87.891 Personal history of nicotine dependence; Z79.02 Long term (current) use of antithrombotics/antiplatelets; Z79.82 Long term (current) use of aspirin; Z79.899 Other long term (current) drug therapy; Z88.0 Allergy status to penicillin; Z88.2 Allergy status to sulfonamides; Z91.013 Allergy to seafood; Z91.041 Radiographic dye allergy status; Z95.1 Presence of aortocoronary bypass graft; Z95.5 Presence of coronary angioplasty implant and graft
CPT/HCPCS: 36415; 70547; 71045; 80048; 80053; 83690; 84484; 85025; 93005; 93010; 93970; 96372; 96374; 96375; 96376; G0378; J1650; J1885; J2060; J2270; J2405

== ENCOUNTER 2020-08-19 18:49 | Observation (INO) | payer SELFPAY ==
[2020-08-19 19:18] LABS: #Basophils 0.1 thou/uL (0.0-0.2); #Eosinphils 0.7 thou/uL (0.0-0.7); #Lymphocytes 4.3 thou/uL (1.20-3.40); #Monocytes 0.8 thou/uL (0.11-0.59); #Neutrophils 7.6 thou/uL (1.40-6.50); %Basophils 0.8 % (0.0-1.0); %Eosinophils 5.4 % (0.0-10.0); %Lymphocytes 31.4 % (21.0-51.0); %Monocytes 6.1 % (0.0-10.0); %Neutrophils 56.2 % (42.0-75.0); Hemoglobin 14.1 g/dL (14.0-18.0); Mean Corpuscular HGB CONC 34.2 g/dL (32.0-36.0); Mean Corpuscular Hemoglobin 32.1 pg (27.0-31.0); Mean Corpuscular Volume 93.6 fL (78.0-98.0); Mean Platelet Volume 7.6 fL (7.4-10.4); Platelet Count 280 thou/uL (130-400); RBC Distribution Width 12.4 % (11.5-14.5); White Blood Cell (WBC) Count 13.6 thou/uL (4.8-10.8)
[2020-08-19 19:50] LABS: ALT (SGPT) 32 U/L (8-55); AST (SGOT) 22 U/L (5-34); Albumin 3.9 g/dL (3.5-5.0); Alkaline Phosphatase 90 U/L (40-110); Anion Gap 16 mmol/L (10-20); BUN (Urea Nitrogen) 7 mg/dL (8.9-20.6); Bilirubin, Total 0.3 mg/dL (0.2-1.2); CK (CPK) 84 U/L (30-200); Calc. Creatinine Clearance 0 mL/min (70-130); Calcium 8.9 mg/dL (7.8-10.44); Carbon Dioxide 19 mmol/L (22-29); Chloride 107 mmol/L (98-107); Estimated GFR-MDRD Greater than 90; Globulin 2.7 g/dL (2.4-3.5); Glucose 127 mg/dL (70-105); Lipase 22 U/L (8-78); Potassium 3.9 mmol/L (3.5-5.1); Protein, Total 6.6 g/dL (6.0-8.3); Sodium 138 mmol/L (136-145)
--- NOTE | 2020-08-19 19:54 | RAD ---
FRONTAL RADIOGRAPH CHEST: 08/19/20 COMPARISON: 08/14/20. HISTORY: Chest pain. FINDINGS: Midline sternotomy wires are present. Cardiac silhouette is prominent. No pneumothorax, pleural fluid , lobar consolidation or alveolar edema. IMPRESSION: Stable appearance of the chest - no acute findings. POS: MANISH
[2020-08-19] MEDS ORDERED: Aspirin Chewable 81 MG TAB ONE ×2 (20:10→20:11)
[2020-08-19] MEDS ORDERED: Ketorolac Tromethamine 30 MG/ML VIAL ONE (20:11)
[2020-08-19] MEDS ORDERED: Morphine 4 MG/ML VIAL ONE ×2 (20:11→21:07)
[2020-08-19] MEDS ORDERED: Nitroglycerin 2% Ointment 1 INCH/1 GM Packet ONE (20:11)
[2020-08-19] MEDS ORDERED: Morphine 2 MG/ML VIAL ONE ×2 (21:07→23:30)
[2020-08-19] MEDS ORDERED: Ondansetron PF 4 MG/2 ML Vial ONE (21:19)
[2020-08-19] MEDS ORDERED: Lorazepam 2 MG/ML VIAL ONE (21:59)
[2020-08-19] MEDS ORDERED: Lidocaine Viscous Sol 2% 15 ml UD Cup ONE (22:53)
[2020-08-19] MEDS ORDERED: Mag-Al 1200 mg/1200 mg/30 ML UDCUP ONE (22:53)
[2020-08-20] MEDS ORDERED: Fentanyl 100 MCG/2 ML VIAL ONE (00:21)
[2020-08-20 01:11] LABS: Troponin I 0.011 ng/mL (< 0.028)
[2020-08-20] MEDS ORDERED: Morphine 2 MG/ML VIAL SLOW IVP PRN ×2 (01:14→11:51)
[2020-08-20] MEDS ORDERED: Morphine 2 MG/ML VIAL ONE (01:17)
[2020-08-20 01:29] VITALS: BMI 37.1
[2020-08-20] MEDS ORDERED: Dextrose 50% Abboject 50 ML SYRINGE SLOW IVP PRN (01:44)
[2020-08-20] MEDS ORDERED: Dextrose 5% in Water 1,000 ML IV PRN (01:44)
[2020-08-20] MEDS ORDERED: HumaLOG 300 UNITS/3 ML VIAL SC PRN (01:44)
[2020-08-20] MEDS ORDERED: Sodium Chloride 0.9% 1,000 ML IV SCH (01:45)
--- NOTE | 2020-08-20 03:45 | HP ---
REASON FOR ADMISSION: Chest pain. HISTORY OF PRESENT ILLNESS: This is a 39-year-old male patient who is presenting with chest pain, history is going back to 3 weeks before his presentation. He has been experiencing pain localized in the retrosternal area. It is described as pressure-like in nature, worse with lying flat. It is worse with movement. It is also worse when he tried to take a deep breath. He denies being short of breath. He denies nausea, no vomiting. In the ER, he did require a lot of morphine and continues to have pain. I did review his records. The patient has multiple admissions and visits to the ER for chest pain. His last admission was approximately a week ago with similar presentation, he was described as having chest pain that is atypical, also neck pain. His cardiac enzymes remained negative. Flexeril did help to decrease his symptoms. It was thought that his pain is musculoskeletal in nature. He tells me that he did have a stress test approximately a month ago that was negative. PAST MEDICAL HISTORY: 1. Coronary artery disease status post CABG and stenting. 2. High blood pressure. 3. Epilepsy. 4. Crohn's disease. 5. Kidney stones. 6. Epididymitis. 7. Diabetes, type 2. 8. Chronic kidney disease, stage II. SOCIAL HISTORY: Continues to smoke half a pack a day. Does not drink alcohol. Does not use illegal substance. ALLERGIES: TO PENICILLIN, IODINE, SHELLFISH, SULFA. FAMILY HISTORY: Father had heart disease. REVIEW OF SYSTEMS: All systems reviewed except for the above mentioned, found to be negative. PHYSICAL EXAMINATION: GENERAL: Awake, alert, oriented, does not appear in distress. VITAL SIGNS: His blood pressure is 129/74, heart rate of 74, temperature is 97.6, saturating 95% on 2 L nasal cannula. HEAD: Nontraumatic, normocephalic. Pupils equal and reactive. Extraocular movements are intact. Nonicteric sclerae. Well injected conjunctivae. Oral mucosa normal. Nasal mucosa normal. NECK: Supple. No adenopathy. No murmur. Thyroid is not palpable. Trachea is midline. No supraclavicular or clavicular lymphadenopathy. CARDIAC: S1, S2 regular. No murmur. No gallops. No friction rubs. No displacement of PMI. LUNGS: Clear to auscultation bilaterally. No wheezes, rhonchi, or crackles. ABDOMEN: Bowel sounds are positive. Nontender abdomen. No hepatosplenomegaly. EXTREMITIES: No lower extremity edema. No cyanosis. NEUROLOGIC: Cranial nerves 2-12 within normal limits. Normal motor function. Sensory function. Normal reflexes. LABORATORY DATA: Blood work shows WBC of 13.6, hemoglobin of 14.1, platelets of 280. Sodium 138, potassium 3.9, bicarb 19, BUN 7, creatinine 0.85. IMAGING: EKG shows no changes from previous EKG. ASSESSMENT AND PLAN: This is a 39-year-old male patient presenting with recurrence of his chest pain. Cardiac: The patient does have chest pain, it is atypical in nature. Recently, he ruled out for cardiac etiology of his chest pain, but he does have extensive past medical history and his pain persists. For that reason, we will admit him to telemetry. We will cycle his cardiac enzymes. We will consult Cardiology. We will have him on morphine on as needed basis. We will resume his home medications. Endocrinology: We will resume his home medications and will have him on insulin sliding scale. For his history of seizures, continue with Fang. For DVT prophylaxis to be on SCDs. Job ID: [id number]
[2020-08-20 05:15] LABS: #Basophils 0.1 thou/uL (0.0-0.2); #Eosinphils 0.7 thou/uL (0.0-0.7); #Lymphocytes 4.1 thou/uL (1.20-3.40); #Monocytes 0.9 thou/uL (0.11-0.59); #Neutrophils 4.2 thou/uL (1.40-6.50); %Basophils 1.1 % (0.0-1.0); %Eosinophils 6.7 % (0.0-10.0); %Lymphocytes 41.4 % (21.0-51.0); %Neutrophils 41.8 % (42.0-75.0); Hemoglobin 14.2 g/dL (14.0-18.0); Mean Corpuscular HGB CONC 35.1 g/dL (32.0-36.0); Mean Corpuscular Hemoglobin 33.4 pg (27.0-31.0); Mean Platelet Volume 7.6 fL (7.4-10.4); Platelet Count 274 thou/uL (130-400); RBC Distribution Width 12.7 % (11.5-14.5); Red Blood Cell (RBC) Count 4.27 mill/uL (4.70-6.10)
[2020-08-20 05:34] LABS: Anion Gap 13 mmol/L (10-20); BUN (Urea Nitrogen) 8 mg/dL (8.9-20.6); Calc. Creatinine Clearance 154 mL/min (70-130); Calcium 8.8 mg/dL (7.8-10.44); Carbon Dioxide 25 mmol/L (22-29); Chloride 106 mmol/L (98-107); Estimated GFR-MDRD 89; Glucose 121 mg/dL (70-105); Potassium 3.9 mmol/L (3.5-5.1); Sodium 140 mmol/L (136-145)
[2020-08-20 11:13] VITALS: BP 123/70; TEMP 97.8
--- NOTE | 2020-08-20 15:25 | CON ---
DATE OF CONSULTATION: HISTORY OF PRESENT ILLNESS: Yunier Batres is a 39-year-old white male, who is a patient of Dr. Robert Chamorro, but has seen Dr. Cabrera when hospitalized here at [facility]. Two years ago, he underwent CABG and one year ago, had a stent placed. He states that he has had continual chest discomfort since bypass surgery 2 years ago. This discomfort to the left of his sternum is present 24 hours a day. The pain is not pleuritic in nature and he has noticed no palpable tenderness. He had elevated blood pressure yesterday, was somewhat dizzy and lightheaded, and came to the emergency room, was admitted for further evaluation of his chest pain. PAST MEDICAL HISTORY: Coronary artery disease, hypertension, hyperlipidemia, diabetes. PAST SURGICAL HISTORY: CABG and coronary stent placement. SOCIAL HISTORY: Continues to smoke 1/2 pack per day. MEDICATIONS: 1. Brilinta 90 mg b.i.d. 2. Aspirin 81 mg q.a.m. 3. Amiodarone 100 mg daily. 4. Atorvastatin 80 mg daily. 5. Buspirone 10 mg p.r.n. 6. Flexeril 10 mg t.i.d. p.r.n. 7. Cymbalta 20 mg at bedtime. 8. Duloxetine 60 at bedtime. 9. Keppra 500 daily. 10. at bedtime. 11. Nitroglycerin p.r.n. 12. Dilantin 200 mg b.i.d. 13. Seroquel at bedtime. ALLERGIES: IODINE, PENICILLIN, SHELLFISH, SULFA. PHYSICAL EXAMINATION: VITAL SIGNS: Blood pressure 123/70, pulse 78. HEENT: PERRL. CHEST: Clear. CARDIAC: S1 and S2 normal without any S3, S4, or murmurs. ABDOMEN: Normal bowel sounds. EXTREMITIES: Reveal no clubbing, cyanosis, or edema. NEUROLOGIC: Grossly intact. SKIN: Warm and dry. MUSCULOSKELETAL: There is no palpable tenderness where he is having his chest pain. LABORATORY DATA: EKG reveals normal sinus rhythm with nonspecific T-wave changes. No acute changes. Cardiac enzymes are unremarkable. Hemoglobin 14.2, hematocrit 40.5, white count 10,000, platelets 274,000. Sodium 140, potassium 3.9, chloride 106, carbon dioxide 25, BUN 8, creatinine 0.94. ASSESSMENT: 1. Noncardiac chest pain. 2. S/P CABG and stent placement. 3. Continues to smoke. 4.Hypertension. 5.Hypercholesterolemia. RECOMMENDATIONS: Mr. Batres has had continual chest discomfort 24 hours a day for 2 years since bypass surgery. He has unremarkable EKG and totally normal cardiac enzymes and I do not feel that this is cardiac in nature. Consideration could be given to a therapeutic trial with nonsteroidal anti-inflammatory medication. Also, consideration should be given to have him evaluated by a plate painter. From a cardiac standpoint, no further evaluation is warranted. Job ID: [id number] MTDD
--- NOTE | 2020-08-21 00:30 | DIS ---
DATE OF ADMISSION: 08/19/2020 DATE OF DISCHARGE: 08/20/2020 PRIMARY CARE PHYSICIAN: Dr. Wall. REASON FOR ADMISSION: Chest pain and neck pain. DIAGNOSES AT DISCHARGE: 1. Chronic chest pain. 2. Neck pain, noncardiac in origin, likely musculoskeletal. 3. Coronary artery disease, status post CABG and stenting. 4. Hypertension. 5. Epilepsy. 6. Crohn's disease. 7. Diabetes mellitus, type 2. 8. Chronic kidney disease, stage 2. PROCEDURES: None. CONSULTATIONS: Cardiology, Dr. Connelly. SUMMARY OF HOSPITAL COURSE: This is a 39-year-old white male, recently in the hospital several times for chronic chest pain. He has had chest pain for the last 2 years since his heart surgery. He also for about the last 3 to 4 weeks has been having neck pain. He has been admitted multiple times for this in our emergency room, actually sees Dr. Chamorro, and is a patient of Dr. Wall. He noticed that his pain was continuing to be severe and that he was having some high blood pressures at home, specifically, he noticed had a blood pressure of 150/130, so he came into the emergency room. In the ER, the patient's blood pressures were all normal. He was given pain medicine. He had negative troponins x3, was observed in telemetry. Dr. Connelly was consulted. The patient has had a recent negative stress test and Dr. Connelly determined this is not cardiac in origin. This is related to his chronic pain and recommends outpatient followup with Pain Management, but he does not need to be continued to be admitted to the hospital for this chronic chest pain. The patient also had a CT of his neck and blood vessels in his neck for the neck pain in his last admission, that was negative as well. DISCHARGE MANAGEMENT: Discharged home. FOLLOWUP: Follow up with primary care physician early next week and talk to him about getting a pain management referral. ACTIVITY: As tolerated. DIET: Diabetic, healthy heart diet. MEDICATIONS: Continue all home medications. We will not increase blood pressure medicines at this time due to normal blood pressure throughout his hospitalization. 1. Acetaminophen as needed. 2. Amiodarone 100 mg daily. 3. Aspirin 81 mg daily. 4. Atorvastatin 80 mg daily. 5. Buspirone 10 mg twice a day for anxiety. 6. Flexeril 10 mg 3 times a day as needed for spasms. 7. Duloxetine 80 mg at night. 8. Hydroxyzine 50 mg at night. 9. Keppra 500 mg daily. 10. Metoprolol succinate 25 mg daily. 11. Nitroglycerin as needed. 12. Phenytoin 200 mg twice a day. 13. Seroquel 150 mg at night. 14. Brilinta 90 mg twice a day. Job ID: [id number]
[2020-08-21] MEDS ORDERED: Ezetimibe 10 MG TAB PO SCH (09:00)
== END 2020-08-20 14:12 | disposition home or self-care (01) ==
LOC: ERS 18:49 → ERHOLD 23:22 → UNDOADMOB 23:24 → 2NO 08-20 11:17
PROVIDERS: ADMIT Internal Medicine; ATTEND Emergency Medicine
DX: R07.89 Other chest pain (principal); M54.2 Cervicalgia; I25.10 Atherosclerotic heart disease of native coronary artery without angina pectoris; I12.9 Hypertensive chronic kidney disease with stage 1 through stage 4 chronic kidney disease, or unspecified chronic kidney disease; E11.22 Type 2 diabetes mellitus with diabetic chronic kidney disease; N18.2 Chronic kidney disease, stage 2 (mild); G40.909 Epilepsy, unspecified, not intractable, without status epilepticus; K50.90 Crohn's disease, unspecified, without complications; F17.210 Nicotine dependence, cigarettes, uncomplicated; E78.00 Pure hypercholesterolemia, unspecified; Z79.82 Long term (current) use of aspirin; Z79.899 Other long term (current) drug therapy; Z79.02 Long term (current) use of antithrombotics/antiplatelets; Z88.0 Allergy status to penicillin; Z88.2 Allergy status to sulfonamides; Z88.8 Allergy status to other drugs, medicaments and biological substances; Z91.013 Allergy to seafood; Z95.1 Presence of aortocoronary bypass graft; Z95.5 Presence of coronary angioplasty implant and graft
CPT/HCPCS: 36415; 36416; 71045; 80048; 80053; 82550; 83690; 84484; 85025; 93005; 96374; 96375; 96376; G0378; J1885; J2060; J2270; J2405; J3010

== ENCOUNTER 2020-08-24 20:23 | Emergency (ER) | payer SELFPAY ==
[2020-08-24 20:48] LABS: #Basophils 0.1 thou/uL (0.0-0.2); #Eosinphils 0.7 thou/uL (0.0-0.7); #Lymphocytes 3.7 thou/uL (1.20-3.40); #Monocytes 0.9 thou/uL (0.11-0.59); #Neutrophils 5.9 thou/uL (1.40-6.50); %Basophils 0.7 % (0.0-1.0); %Eosinophils 6.4 % (0.0-10.0); %Lymphocytes 32.7 % (21.0-51.0); %Neutrophils 52.2 % (42.0-75.0); Hemoglobin 14.5 g/dL (14.0-18.0); Mean Corpuscular HGB CONC 34.6 g/dL (32.0-36.0); Mean Corpuscular Hemoglobin 32.9 pg (27.0-31.0); Mean Platelet Volume 7.7 fL (7.4-10.4); Platelet Count 291 thou/uL (130-400); RBC Distribution Width 12.8 % (11.5-14.5); White Blood Cell (WBC) Count 11.3 thou/uL (4.8-10.8)
[2020-08-24 21:02] LABS: Anion Gap 15 mmol/L (10-20); BUN (Urea Nitrogen) 11 mg/dL (8.9-20.6); Calc. Creatinine Clearance 0 mL/min (70-130); Carbon Dioxide 22 mmol/L (22-29); Chloride 106 mmol/L (98-107); Estimated GFR-MDRD 81; Potassium 3.7 mmol/L (3.5-5.1); Sodium 139 mmol/L (136-145)
[2020-08-24 21:03] LABS: ALT (SGPT) 26 U/L (8-55); AST (SGOT) 18 U/L (5-34); Albumin 3.9 g/dL (3.5-5.0); Alkaline Phosphatase 85 U/L (40-110); Bilirubin, Total 0.2 mg/dL (0.2-1.2); CK (CPK) 102 U/L (30-200); Calcium 9.3 mg/dL (7.8-10.44); Glucose 182 mg/dL (70-105); Protein, Total 6.9 g/dL (6.0-8.3)
--- NOTE | 2020-08-24 21:06 | RAD ---
CHEST ONE VIEW: 08/24/20 HISTORY: Chest pain, shortness of breath. COMPARISON: Radiograph 08/19/20. FINDINGS: Lung novak are clear. No pneumothorax or effusion. Cardiac silhouette is prominently enlarged. Multi ple midline sternotomy wires. IMPRESSION: No acute intrathoracic abnormality. POS: HOME
== END 2020-08-24 23:50 | disposition home or self-care (01) ==
LOC: ERS 20:23
DX: R07.9 Chest pain, unspecified (principal); M54.2 Cervicalgia; R42 Dizziness and giddiness; E11.9 Type 2 diabetes mellitus without complications; Z86.718 Personal history of other venous thrombosis and embolism; F17.210 Nicotine dependence, cigarettes, uncomplicated; F41.9 Anxiety disorder, unspecified; Z95.1 Presence of aortocoronary bypass graft; Z79.01 Long term (current) use of anticoagulants; Z79.82 Long term (current) use of aspirin; Z79.899 Other long term (current) drug therapy
CPT/HCPCS: 36415; 71045; 80053; 82550; 84484; 85025; 93005

== ENCOUNTER 2020-08-25 19:45 | Emergency (ER) | payer SELFPAY ==
[2020-08-25 20:12] LABS: #Basophils 0.2 thou/uL (0.0-0.2); #Eosinphils 0.8 thou/uL (0.0-0.7); #Lymphocytes 3.9 thou/uL (1.20-3.40); #Monocytes 1.2 thou/uL (0.11-0.59); #Neutrophils 7.4 thou/uL (1.40-6.50); %Basophils 1.1 % (0.0-1.0); %Eosinophils 5.8 % (0.0-10.0); %Lymphocytes 29.2 % (21.0-51.0); %Monocytes 8.6 % (0.0-10.0); %Neutrophils 55.4 % (42.0-75.0); Hemoglobin 14.4 g/dL (14.0-18.0); Mean Corpuscular HGB CONC 34.2 g/dL (32.0-36.0); Mean Corpuscular Hemoglobin 32.7 pg (27.0-31.0); Mean Corpuscular Volume 95.6 fL (78.0-98.0); Mean Platelet Volume 7.7 fL (7.4-10.4); Platelet Count 294 thou/uL (130-400); RBC Distribution Width 12.7 % (11.5-14.5); White Blood Cell (WBC) Count 13.4 thou/uL (4.8-10.8)
[2020-08-25 20:32] LABS: ALT (SGPT) 29 U/L (8-55); AST (SGOT) 22 U/L (5-34); Albumin 3.9 g/dL (3.5-5.0); Alkaline Phosphatase 85 U/L (40-110); Anion Gap 13 mmol/L (10-20); BUN (Urea Nitrogen) 10 mg/dL (8.9-20.6); Bilirubin, Total 0.2 mg/dL (0.2-1.2); Calc. Creatinine Clearance 0 mL/min (70-130); Carbon Dioxide 23 mmol/L (22-29); Chloride 108 mmol/L (98-107); Estimated GFR-MDRD Greater than 90; Globulin 3.1 g/dL (2.4-3.5); Glucose 89 mg/dL (70-105); Potassium 3.9 mmol/L (3.5-5.1); Sodium 140 mmol/L (136-145)
[2020-08-25] MEDS ORDERED: Morphine 4 MG/ML VIAL ONE (20:36)
[2020-08-25] MEDS ORDERED: Ondansetron PF 4 MG/2 ML Vial ONE (20:36)
--- NOTE | 2020-08-25 20:54 | RAD ---
Chest one view HISTORY: Chest pain. COMPARISON: 08/24/2020. FINDINGS: Cardiac silhouette is magnified by projection. Pulmonary vasculature is unremarkable. Mediastinum is midline with postoperative changes. No confluent airspace consolidation or evidence of pneumothorax. IMPRESSION : No abnormalities are demonstrated.
--- NOTE | 2020-08-25 21:26 | ULT ---
Sonogram right upper quadrant HISTORY: Right upper quadrant pain. FINDINGS: Gallbladder has a normal appearance without stone evident. Common duct is 0.3 cm. Liver is diffusely echogenic. A focal area of more normal echogenicity near the gallbladder fossa cor relates with the findings on recent CT from 10/27/2019. No free fluid. Tiny echogenicity associated with the right kidney may reflect the nonobstructing calculus on prior CT. No hydronephrosis. IMPRESSION : No evidence of gallstones or biliary obstruction. Hepato-steatosis.
--- NOTE | 2020-08-25 21:40 | ULT ---
Venous duplex sonogram right lower extremity HISTORY: Right leg pain and edema. FINDINGS: The right common femoral vein and greater saphenous junction were evaluated along with the femoral, deep femoral, popliteal, and posterior tibial veins. There is good color and spectral Doppler flow, compression, and augmentation. IMPRESSION : Normal exam.
[2020-08-25] MEDS ORDERED: Aspirin Chewable 81 MG TAB ONE (21:48)
[2020-08-25] MEDS ORDERED: Acetaminophen 500 MG TAB ONE (22:24)
[2020-08-25] MEDS ORDERED: diphenhydrAMINE 50 MG/ML VIAL ONE (22:32)
[2020-08-25] MEDS ORDERED: Hydrocortisone Sod Succ/PF 100 mg/2 ml Vial ONE (22:32)
[2020-08-25] MEDS ORDERED: Famotidine/PF 20 mg/2ml Vial ONE (22:32)
[2020-08-25 23:31] LABS: Troponin I Less than 0.010 ng/mL (< 0.028)
--- NOTE | 2020-08-25 23:34 | CT ---
CT arteriogram chest with IV contrast and 3-D imaging HISTORY: Chest pain. Dyspnea. COMPARISON: 05/28/2019. FINDINGS: There is good contrast opacification of the pulmonary arteries and thoracic aorta with bovi ne origin of the great vessels at the aortic arch. No evidence of pleural fluid or mediastinal adenopathy. Postoperative changes mediastinum are apparent. Subtle ill-defined peripheral areas of groundglass opacity throughout each lung are somewhat diffuse rather than focal. There is a focal area of atelectasis involving the right anterior lung base. Within the partially visualized upper abdomen, the liver is diffusely hypodense. IMPRESSION : No evidence of pulmonary embolus. Very mild bilateral groundglass parenchymal opacity. Clinical correlation regarding other signs and s ymptoms of COVID pneumonitis is required. Hepato-steatosis.
== END 2020-08-25 23:38 | disposition home or self-care (01) ==
LOC: ERS 19:45
DX: R07.89 Other chest pain (principal); G89.29 Other chronic pain; E11.9 Type 2 diabetes mellitus without complications; I10 Essential (primary) hypertension; I25.10 Atherosclerotic heart disease of native coronary artery without angina pectoris; F17.210 Nicotine dependence, cigarettes, uncomplicated; Z79.82 Long term (current) use of aspirin; Z79.899 Other long term (current) drug therapy
CPT/HCPCS: 36415; 71045; 71275; 76705; 80053; 84484; 85025; 85379; 93005; 96374; 96375; J1200; J1720; J2270; J2405; S0028

== ENCOUNTER 2020-09-07 19:16 | Emergency (ER) | payer SELFPAY ==
[2020-09-07] MEDS ORDERED: Lorazepam 1 MG TAB ONE ×2 (19:39→20:22)
[2020-09-07 19:48] LABS: #Basophils 0.1 thou/uL (0.0-0.2); #Eosinphils 0.8 thou/uL (0.0-0.7); #Lymphocytes 3.5 thou/uL (1.20-3.40); #Monocytes 0.8 thou/uL (0.11-0.59); #Neutrophils 7.1 thou/uL (1.40-6.50); %Basophils 0.5 % (0.0-1.0); %Eosinophils 6.6 % (0.0-10.0); %Lymphocytes 28.8 % (21.0-51.0); %Monocytes 6.8 % (0.0-10.0); %Neutrophils 57.3 % (42.0-75.0); Hemoglobin 14.8 g/dL (14.0-18.0); Mean Corpuscular HGB CONC 34.7 g/dL (32.0-36.0); Mean Corpuscular Hemoglobin 32.4 pg (27.0-31.0); Mean Corpuscular Volume 93.3 fL (78.0-98.0); Mean Platelet Volume 7.8 fL (7.4-10.4); Platelet Count 289 thou/uL (130-400); RBC Distribution Width 12.5 % (11.5-14.5); Red Blood Cell (RBC) Count 4.59 mill/uL (4.70-6.10); White Blood Cell (WBC) Count 12.3 thou/uL (4.8-10.8)
--- NOTE | 2020-09-07 19:56 | RAD ---
Portable frontal chest radiograph: 09/07/2020 COMPARISON: 08/30/2020 HISTORY: Chest pain FINDINGS: Lungs are clear. Heart and mediastinal contours appear within normal limits. Midline sterno osiel wires are again noted. IMPRESSION: No acute findings.
[2020-09-07 20:13] LABS: ALT (SGPT) 35 U/L (8-55); AST (SGOT) 24 U/L (5-34); Albumin 4.2 g/dL (3.5-5.0); Alkaline Phosphatase 100 U/L (40-110); Anion Gap 15 mmol/L (10-20); BUN (Urea Nitrogen) 10 mg/dL (8.9-20.6); Bilirubin, Total 0.2 mg/dL (0.2-1.2); CK (CPK) 89 U/L (30-200); Calc. Creatinine Clearance 0 mL/min (70-130); Calcium 9.3 mg/dL (7.8-10.44); Carbon Dioxide 22 mmol/L (22-29); Chloride 105 mmol/L (98-107); Estimated GFR-MDRD 83; Globulin 2.9 g/dL (2.4-3.5); Glucose 168 mg/dL (70-105); Lipase 36 U/L (8-78); Potassium 4.2 mmol/L (3.5-5.1); Protein, Total 7.1 g/dL (6.0-8.3); Sodium 138 mmol/L (136-145)
== END 2020-09-07 21:20 | disposition home or self-care (01) ==
LOC: ERS 19:16
DX: R07.89 Other chest pain (principal); I10 Essential (primary) hypertension; E11.9 Type 2 diabetes mellitus without complications; I25.10 Atherosclerotic heart disease of native coronary artery without angina pectoris; F41.9 Anxiety disorder, unspecified; F17.210 Nicotine dependence, cigarettes, uncomplicated; Z79.82 Long term (current) use of aspirin; Z79.899 Other long term (current) drug therapy
CPT/HCPCS: 71045; 80053; 82550; 83690; 83880; 84484; 85025; 93005

== ENCOUNTER 2020-09-13 21:14 | Emergency (ER) | payer SELFPAY ==
[2020-09-13] MEDS ORDERED: HYDROcodone/Acetaminophen 10/325 mg Tablet ONE (22:01)
--- NOTE | 2020-09-13 23:11 | CT ---
CT Brain WO Con: 09/13/2020 10:45 PM CLINICAL HISTORY: Fell off roof with head injury. IMAGING TECHNIQUE: Multiple CT images were obtained of the brain without IV contrast. COMPARISON: Prior exam dated May 08, 2019 FINDINGS: Motion artifact slightly limits image detail. BRAIN: Evidence of acute infarct: None. Evidence of chronic ischemic change:None. Evidence of intracranial hemorrhage: None. Evidence of brain volume loss:None. Evidence of midline shift: Third ventricle and septum pellucidum are midline. Ventricles: Normal. No hydrocephalus. SKULL: Intact. VISUALIZED PARANASAL SINUSES: There is mild mucosal thickening in the ethmoid air cells and right ma xillary sinus. MASTOID AIR CELLS: Clear. EXTRACRANIAL SOFT TISSUES: Normal. IMPRESSION: No acute intracranial abnormality.
--- NOTE | 2020-09-13 23:14 | CT ---
CT Cervical Spine WO Con Indication: Fall from roof with concern for neck injury COMPARISON: None. FINDINGS: Spinal alignment: No acute malalignment. Craniocervical junction: Within normal limits. Fracture: None. Vertebral body heights: Maintained. Prevertebral soft tissues:Normal appearing. Cervical spine degenerative change: None of significance. Lung apices: Clear. IMPRESSION: No acute osseous abnormality.
--- NOTE | 2020-09-13 23:19 | CT ---
CT OF THE CHEST, ABDOMEN AND PELVIS WITHOUT IV CONTRAST CT OF THE THORACIC AND LUMBAR SPINE WITHOUT CONTRAST INDICATION: Fall from roof with head and back pain COMPARISON: Prior CTA of the chest dated August 25, 2020 FINDINGS: CHEST: The lack of IV contrast limits evaluation for solid organ injury in acute vascular injury. Lungs:There are areas of scattered subsegmental volume loss within the lungs. No acute airspace conso lidation is evident. Heart and great vessels:There is postsurgical change of a prior CABG. There are prominent coronary ar ute calcifications. Pleural space: No pneumothorax or effusion. Additional findings: ABDOMEN: Liver:There is prominent fatty infiltration of the liver. Spleen:Normal appearing. Pancreas:Normal appearing. Adrenal Glands:Normal appearing. Kidneys:Normal appearing. Aorta:There are moderate vascular calcifications seen involving the visualized vasculature. Additional findings: No free fluid or free air. PELVIS: Bowel:Normal appearing. Bladder:Normal appearing. Reproductive structures:Normal appearing. Rectum and perirectal soft tissues:Normal appearing. Additional findings: No free fluid or free air. OSSEOUS STRUCTURES: No acute osseous abnormality. There is a stable remote appearing anterior lateral left fourth rib fra cture. There is scattered degenerative and osteoarthritic changes. THORACIC AND LUMBAR SPINE: No acute fracture or subluxation. IMPRESSION: 1. No acute traumatic injury seen involving the chest, abdomen or pelvis.
== END 2020-09-14 00:25 | disposition home or self-care (01) ==
LOC: ERS 21:14
DX: S06.0X0A Concussion without loss of consciousness, initial encounter (principal); S16.1XXA Strain of muscle, fascia and tendon at neck level, initial encounter; S20.219A Contusion of unspecified front wall of thorax, initial encounter; E11.9 Type 2 diabetes mellitus without complications; I10 Essential (primary) hypertension; F17.210 Nicotine dependence, cigarettes, uncomplicated; F41.9 Anxiety disorder, unspecified; Z79.899 Other long term (current) drug therapy; Z79.82 Long term (current) use of aspirin; W17.89XA Other fall from one level to another, initial encounter
CPT/HCPCS: 70450; 71250; 72125; 74177

== ENCOUNTER 2020-09-20 23:19 | Emergency (ER) | payer SELFPAY ==
[2020-09-21 01:06] LABS: Bacteria/HPF None Seen HPF (None Seen); Bilirubin Negative (Negative); Blood, Urine Negative (Negative); Clarity Clear (Clear); Glucose, Urine (Dipstick) Normal (Negative); Ketone, Urine Negative (Negative); Leukocyte 25 Leu/uL (Negative); Nitrite Negative (Negative); Protein, Urine (Dipstick) Negative (Neg-Trace); RBC/HPF None Seen HPF (0-3); Specific Gravity, Urine 1.005 (1.002-1.036); Squamous Epithelial 0-3 HPF (0-3); Urobilinogen Normal mg/dL (Less than 2); WBC/HPF 0-3 HPF (0-3); pH, Urine 5.5 (5.0-9.0)
[2020-09-21] MEDS ORDERED: Ketorolac Tromethamine 30 MG/ML VIAL ONE (01:46)
--- NOTE | 2020-09-21 08:55 | ULT ---
PRELIMINARY REPORT/DIRECT RADIOLOGY/EMERGENCY AFTER HOURS PROCEDURE: EXAM: US Scrotum. CLINICAL HISTORY: Rt teste pain x 3 days, burning with urination TECHNIQUE: Real-time ultrasound of the scrotum with color Doppler and image documentation. COMPARISON: None provided. FINDINGS: RIGHT TESTICLE: No mass. Normal Doppler flow. LEFT TESTICLE: No mass. Normal Doppler flow. EPIDIDYMIDES: Right epididymal head subcentimeter cysts. Otherwise, unremarkable. SCROTUM: Unremarkable. IMPRESSION: 1. No acute abnormality or intratesticular mass. 2. Multiple right epididymal head subcentimeter cysts ELECTRONICALLY SIGNED BY: Miguel Angel Edwards DO Sep 21, 2020 12:19:28 AM ARCHEOLOGY FACULTY MEMBER FINAL REPORT TESTICULAR ULTRASOUND: Both testicles have a normal sonographic appearance. Color Doppler and spectral analysis demonstrate blood flow to both testicles. A right epididymal head cyst is noted. I am in agreement with the preliminary report. POS: KIM
== END 2020-09-21 01:53 | disposition home or self-care (01) ==
LOC: ERS 23:19
DX: N50.811 Right testicular pain (principal); I10 Essential (primary) hypertension; E11.9 Type 2 diabetes mellitus without complications; Z86.718 Personal history of other venous thrombosis and embolism; I25.10 Atherosclerotic heart disease of native coronary artery without angina pectoris; F17.210 Nicotine dependence, cigarettes, uncomplicated; Z79.82 Long term (current) use of aspirin; Z79.899 Other long term (current) drug therapy
CPT/HCPCS: 76870; 81003; 81015; 93976; 96372; J1885

== ENCOUNTER 2020-10-16 04:04 | Emergency (ER) | payer SELFPAY ==
[2020-10-16 04:52] LABS: #Basophils 0.1 thou/uL (0.0-0.2); #Eosinphils 0.6 thou/uL (0.0-0.7); #Lymphocytes 3.5 thou/uL (1.20-3.40); #Monocytes 0.6 thou/uL (0.11-0.59); #Neutrophils 5.2 thou/uL (1.40-6.50); %Basophils 0.8 % (0.0-1.0); %Eosinophils 5.8 % (0.0-10.0); %Lymphocytes 34.8 % (21.0-51.0); %Monocytes 5.9 % (0.0-10.0); %Neutrophils 52.7 % (42.0-75.0); Hemoglobin 14.8 g/dL (14.0-18.0); Mean Corpuscular HGB CONC 34.1 g/dL (32.0-36.0); Mean Corpuscular Hemoglobin 32.1 pg (27.0-31.0); Mean Corpuscular Volume 94.1 fL (78.0-98.0); Mean Platelet Volume 7.7 fL (7.4-10.4); Platelet Count 302 thou/uL (130-400); RBC Distribution Width 12.3 % (11.5-14.5); Red Blood Cell (RBC) Count 4.62 mill/uL (4.70-6.10); White Blood Cell (WBC) Count 9.9 thou/uL (4.8-10.8)
[2020-10-16 05:08] LABS: ALT (SGPT) 40 U/L (8-55); AST (SGOT) 25 U/L (5-34); Albumin 4.1 g/dL (3.5-5.0); Alkaline Phosphatase 87 U/L (40-110); Anion Gap 16 mmol/L (10-20); BUN (Urea Nitrogen) 9 mg/dL (8.9-20.6); Bilirubin, Total 0.2 mg/dL (0.2-1.2); Calc. Creatinine Clearance 0 mL/min (70-130); Calcium 8.9 mg/dL (7.8-10.44); Carbon Dioxide 23 mmol/L (22-29); Chloride 105 mmol/L (98-107); Globulin 3.5 g/dL (2.4-3.5); Glucose 161 mg/dL (70-105); Protein, Total 7.6 g/dL (6.0-8.3); Sodium 140 mmol/L (136-145)
--- NOTE | 2020-10-16 08:04 | ULT ---
Venous duplex sonogram HISTORY: Bilateral leg pain and edema. FINDINGS: Each common femoral vein and greater saphenous junction were evaluated along with each femo ral, deep femoral, popliteal, and posterior tibial vein. There is good color and spectral Doppler flow, compression, and augmentation. IMPRESSION : Normal exam.
--- NOTE | 2020-10-16 09:38 | RAD ---
EXAM: Chest one view: HISTORY: Chest pain COMPARISON: 09/17/2020 FINDINGS: Stable increased bronchovascular markings bilaterally. Status post midline sternotomy. Heart size: Within normal limits. Lungs: Clear of acute process. No evidence for confluent lobar pneumonia, significant pleural effusion, acute edema, or pneumothorax , or other significant acute process. IMPRESSION: No significant acute intrathoracic disease.
== END 2020-10-16 06:20 | disposition home or self-care (01) ==
LOC: ERS 04:04
DX: G89.29 Other chronic pain (principal); R07.9 Chest pain, unspecified; E11.9 Type 2 diabetes mellitus without complications; Z86.718 Personal history of other venous thrombosis and embolism; I10 Essential (primary) hypertension; Z87.891 Personal history of nicotine dependence; Z79.82 Long term (current) use of aspirin; Z79.899 Other long term (current) drug therapy
CPT/HCPCS: 71045; 80053; 83880; 84484; 85025; 93005; 93970; 94760

== ENCOUNTER 2021-02-02 21:56 | Emergency (ER) | payer SELFPAY ==
[2021-02-02] MEDS ORDERED: diphenhydrAMINE 50 MG/ML VIAL ONE (22:17)
[2021-02-02] MEDS ORDERED: Famotidine/PF 20 mg/2ml Vial ONE ×2 (22:17→22:19)
[2021-02-02] MEDS ORDERED: methylPREDNISolone Sod Succ 40 MG VIAL ONE (22:17)
[2021-02-02] MEDS ORDERED: Ketorolac Tromethamine 30 MG/ML VIAL ONE ×2 (22:17→22:19)
[2021-02-02 22:21] LABS: #Basophils 0.1 thou/uL (0.0-0.2); #Eosinphils 0.8 thou/uL (0.0-0.7); #Lymphocytes 3.8 thou/uL (1.20-3.40); #Monocytes 0.7 thou/uL (0.11-0.59); #Neutrophils 5.1 thou/uL (1.40-6.50); %Lymphocytes 35.9 % (21.0-51.0); %Monocytes 6.5 % (0.0-10.0); %Neutrophils 48.6 % (42.0-75.0); Hemoglobin 15.6 g/dL (14.0-18.0); Mean Corpuscular HGB CONC 34.7 g/dL (32.0-36.0); Mean Corpuscular Hemoglobin 32.6 pg (27.0-31.0); Mean Corpuscular Volume 94.1 fL (78.0-98.0); Mean Platelet Volume 7.4 fL (7.4-10.4); Platelet Count 284 thou/uL (130-400); RBC Distribution Width 12.4 % (11.5-14.5); Red Blood Cell (RBC) Count 4.78 mill/uL (4.70-6.10); White Blood Cell (WBC) Count 10.5 thou/uL (4.8-10.8)
[2021-02-02 22:31] LABS: ALT (SGPT) 64 U/L (8-55); AST (SGOT) 37 U/L (5-34); Albumin 4.1 g/dL (3.5-5.0); Alkaline Phosphatase 81 U/L (40-110); Anion Gap 15 mmol/L (10-20); BUN (Urea Nitrogen) 10 mg/dL (8.9-20.6); Bilirubin, Total 0.3 mg/dL (0.2-1.2); Calc. Creatinine Clearance 0 mL/min (70-130); Calcium 9.5 mg/dL (7.8-10.44); Carbon Dioxide 24 mmol/L (22-29); Chloride 104 mmol/L (98-107); Globulin 3.4 g/dL (2.4-3.5); Glucose 130 mg/dL (70-105); Lipase 28 U/L (8-78); Potassium 4.1 mmol/L (3.5-5.1); Protein, Total 7.5 g/dL (6.0-8.3); Sodium 139 mmol/L (136-145)
== END 2021-02-02 23:25 ==
LOC: ERS 21:56
DX: R07.9 Chest pain, unspecified (principal); R00.0 Tachycardia, unspecified; I25.10 Atherosclerotic heart disease of native coronary artery without angina pectoris; E11.9 Type 2 diabetes mellitus without complications; Z86.73 Personal history of transient ischemic attack (TIA), and cerebral infarction without residual deficits; I10 Essential (primary) hypertension; F17.210 Nicotine dependence, cigarettes, uncomplicated; Z79.82 Long term (current) use of aspirin; Z79.899 Other long term (current) drug therapy
CPT/HCPCS: 36416; 71045; 80053; 83690; 84484; 85025; 85379; 93005; 96374; 96375; J1200; J1885; J2920; S0028

== ENCOUNTER 2021-03-12 22:06 | Emergency (ER) | payer SELFPAY ==
[2021-03-12 22:41] LABS: #Basophils 0.1 thou/uL (0.0-0.2); #Eosinphils 0.6 thou/uL (0.0-0.7); #Lymphocytes 3.9 thou/uL (1.20-3.40); #Neutrophils 6.8 thou/uL (1.40-6.50); %Basophils 0.7 % (0.0-1.0); %Eosinophils 5.2 % (0.0-10.0); %Lymphocytes 31.3 % (21.0-51.0); %Monocytes 8.2 % (0.0-10.0); %Neutrophils 54.6 % (42.0-75.0); Hemoglobin 14.5 g/dL (14.0-18.0); Mean Corpuscular HGB CONC 35.2 g/dL (32.0-36.0); Mean Corpuscular Hemoglobin 33.1 pg (27.0-31.0); Mean Corpuscular Volume 94.2 fL (78.0-98.0); Mean Platelet Volume 7.5 fL (7.4-10.4); Platelet Count 311 thou/uL (130-400); RBC Distribution Width 12.5 % (11.5-14.5); Red Blood Cell (RBC) Count 4.37 mill/uL (4.70-6.10); White Blood Cell (WBC) Count 12.4 thou/uL (4.8-10.8)
[2021-03-12 23:04] LABS: ALT (SGPT) 44 U/L (8-55); AST (SGOT) 28 U/L (5-34); Albumin 4.1 g/dL (3.5-5.0); Alkaline Phosphatase 82 U/L (40-110); Anion Gap 12 mmol/L (10-20); BUN (Urea Nitrogen) 12 mg/dL (8.9-20.6); Bilirubin, Total 0.2 mg/dL (0.2-1.2); CK (CPK) 108 U/L (30-200); Calc. Creatinine Clearance 0 mL/min (70-130); Calcium 9.4 mg/dL (7.8-10.44); Carbon Dioxide 26 mmol/L (22-29); Chloride 105 mmol/L (98-107); Globulin 3.3 g/dL (2.4-3.5); Glucose 150 mg/dL (70-105); Lipase 35 U/L (8-78); Potassium 3.9 mmol/L (3.5-5.1); Protein, Total 7.4 g/dL (6.0-8.3); Sodium 139 mmol/L (136-145)
[2021-03-12] MEDS ORDERED: HYDROcodone/Acetaminophen 5/325 mg Tablet ONE (23:21)
[2021-03-13 02:30] LABS: Troponin I Less than 0.010 ng/mL (< 0.028)
== END 2021-03-13 03:00 | disposition home or self-care (01) ==
LOC: ERS 22:06
DX: R07.9 Chest pain, unspecified (principal); R00.0 Tachycardia, unspecified; I10 Essential (primary) hypertension; R11.2 Nausea with vomiting, unspecified; R06.02 Shortness of breath; M79.89 Other specified soft tissue disorders; I25.10 Atherosclerotic heart disease of native coronary artery without angina pectoris; E11.9 Type 2 diabetes mellitus without complications; J44.9 Chronic obstructive pulmonary disease, unspecified; F17.210 Nicotine dependence, cigarettes, uncomplicated; Z86.718 Personal history of other venous thrombosis and embolism
CPT/HCPCS: 36415; 71045; 80053; 82550; 83690; 83880; 84484; 85025; 85379; 93005

== ENCOUNTER 2021-06-03 14:28 | Emergency (ER) | payer SELFPAY ==
[2021-06-03 14:57] LABS: #Basophils 0.1 thou/uL (0.0-0.2); #Eosinphils 0.4 thou/uL (0.0-0.7); #Lymphocytes 3.6 thou/uL (1.20-3.40); #Monocytes 0.9 thou/uL (0.11-0.59); #Neutrophils 7.1 thou/uL (1.40-6.50); %Basophils 0.6 % (0.0-1.0); %Lymphocytes 30.1 % (21.0-51.0); %Monocytes 7.8 % (0.0-10.0); %Neutrophils 58.5 % (42.0-75.0); Mean Corpuscular HGB CONC 35.2 g/dL (32.0-36.0); Mean Corpuscular Hemoglobin 33.4 pg (27.0-31.0); Mean Corpuscular Volume 94.8 fL (78.0-98.0); Mean Platelet Volume 7.2 fL (7.4-10.4); Platelet Count 285 thou/uL (130-400); RBC Distribution Width 12.3 % (11.5-14.5)
[2021-06-03 15:23] LABS: ALT (SGPT) 76 U/L (8-55); AST (SGOT) 37 U/L (5-34); Albumin 3.8 g/dL (3.5-5.0); Alkaline Phosphatase 91 U/L (40-110); Anion Gap 11 mmol/L (10-20); BUN (Urea Nitrogen) 13 mg/dL (8.9-20.6); Bilirubin, Total 0.3 mg/dL (0.2-1.2); Calc. Creatinine Clearance 0 mL/min (70-130); Calcium 9.3 mg/dL (7.8-10.44); Carbon Dioxide 25 mmol/L (22-29); Chloride 104 mmol/L (98-107); Globulin 3.4 g/dL (2.4-3.5); Glucose 189 mg/dL (70-105); Lipase 49 U/L (8-78); Potassium 4.5 mmol/L (3.5-5.1); Protein, Total 7.2 g/dL (6.0-8.3); Sodium 135 mmol/L (136-145)
[2021-06-03] MEDS ORDERED: Nitroglycerin 2% Ointment 1 INCH/1 GM Packet ONE (15:25)
[2021-06-03] MEDS ORDERED: Morphine 2 MG/ML VIAL ONE (15:25)
[2021-06-03] MEDS ORDERED: Ketorolac Tromethamine 30 MG/ML VIAL ONE (18:05)
== END 2021-06-03 19:02 | disposition home or self-care (01) ==
LOC: ERS 14:28
DX: R07.89 Other chest pain (principal); I25.10 Atherosclerotic heart disease of native coronary artery without angina pectoris; E11.9 Type 2 diabetes mellitus without complications; I11.0 Hypertensive heart disease with heart failure; I50.9 Heart failure, unspecified; J44.9 Chronic obstructive pulmonary disease, unspecified; Z86.718 Personal history of other venous thrombosis and embolism; Z87.891 Personal history of nicotine dependence; Z79.82 Long term (current) use of aspirin; Z79.899 Other long term (current) drug therapy
CPT/HCPCS: 36415; 71045; 80053; 83690; 83880; 84484; 85025; 93005; 96374; J1885; J2270

== ENCOUNTER 2021-08-23 13:46 | Emergency (ER) | payer SELFPAY ==
[2021-08-23] MEDS ORDERED: Morphine 4 MG/ML VIAL ONE ×2 (14:04→16:24)
[2021-08-23 14:17] LABS: #Basophils 0.1 thou/uL (0.0-0.2); #Eosinphils 0.5 thou/uL (0.0-0.7); #Lymphocytes 3.8 thou/uL (1.20-3.40); #Monocytes 0.8 thou/uL (0.11-0.59); #Neutrophils 4.8 thou/uL (1.40-6.50); %Basophils 0.8 % (0.0-1.0); %Monocytes 8.2 % (0.0-10.0); Hemoglobin 14.9 g/dL (14.0-18.0); Mean Corpuscular HGB CONC 34.6 g/dL (32.0-36.0); Mean Corpuscular Volume 95.5 fL (78.0-98.0); Mean Platelet Volume 7.4 fL (7.4-10.4); Platelet Count 256 thou/uL (130-400); RBC Distribution Width 12.7 % (11.5-14.5); Red Blood Cell (RBC) Count 4.53 mill/uL (4.70-6.10)
[2021-08-23 14:30] LABS: INR-International Normal Ratio 2.1; Prothrombin Time 24.3 sec (12.0-14.7)
[2021-08-23 14:31] LABS: ALT (SGPT) 33 U/L (8-55); AST (SGOT) 21 U/L (5-34); Albumin 4.2 g/dL (3.5-5.0); Alkaline Phosphatase 70 U/L (40-110); Anion Gap 13 mmol/L (10-20); BUN (Urea Nitrogen) 16 mg/dL (8.9-20.6); Bilirubin, Total 0.3 mg/dL (0.2-1.2); Calc. Creatinine Clearance 0 mL/min (70-130); Calcium 9.3 mg/dL (7.8-10.44); Carbon Dioxide 24 mmol/L (22-29); Chloride 105 mmol/L (98-107); Globulin 3.1 g/dL (2.4-3.5); Glucose 126 mg/dL (70-105); PTT 45.7 sec (22.9-36.1); Potassium 4.2 mmol/L (3.5-5.1); Protein, Total 7.3 g/dL (6.0-8.3); Sodium 138 mmol/L (136-145)
[2021-08-23 14:32] LABS: D-Dimer Test Less than 0.27 *mcg/mL (0.27-0.43)
[2021-08-23] MEDS ORDERED: Nitroglycerin 0.4 MG TAB 1 EACH ONE (15:09)
[2021-08-23] MEDS ORDERED: Nitroglycerin 2% Ointment 1 INCH/1 GM Packet ONE (15:12)
== END 2021-08-23 16:30 | disposition home or self-care (01) ==
LOC: ERS 13:46
DX: R07.9 Chest pain, unspecified (principal); I25.10 Atherosclerotic heart disease of native coronary artery without angina pectoris; I11.0 Hypertensive heart disease with heart failure; I50.9 Heart failure, unspecified; I25.2 Old myocardial infarction; I48.91 Unspecified atrial fibrillation; E11.9 Type 2 diabetes mellitus without complications; J44.9 Chronic obstructive pulmonary disease, unspecified; Z86.718 Personal history of other venous thrombosis and embolism; Z79.01 Long term (current) use of anticoagulants; Z79.899 Other long term (current) drug therapy; Z79.82 Long term (current) use of aspirin
CPT/HCPCS: 71045; 80053; 83880; 84484; 85025; 85379; 85610; 85730; 93005; 96374; 96376; J2270

== ENCOUNTER 2021-09-02 16:30 | Emergency (ER) | payer SELFPAY ==
[2021-09-02 17:16] LABS: #Eosinphils 0.4 thou/uL (0.0-0.7); #Lymphocytes 3.3 thou/uL (1.20-3.40); %Basophils 0.5 % (0.0-1.0); %Eosinophils 4.4 % (0.0-10.0); %Lymphocytes 33.7 % (21.0-51.0); %Monocytes 10.3 % (0.0-10.0); %Neutrophils 51.1 % (42.0-75.0); Hemoglobin 14.9 g/dL (14.0-18.0); Mean Corpuscular HGB CONC 35.3 g/dL (32.0-36.0); Mean Corpuscular Hemoglobin 33.4 pg (27.0-31.0); Mean Corpuscular Volume 94.7 fL (78.0-98.0); Mean Platelet Volume 7.4 fL (7.4-10.4); Platelet Count 253 thou/uL (130-400); RBC Distribution Width 12.6 % (11.5-14.5); Red Blood Cell (RBC) Count 4.47 mill/uL (4.70-6.10); White Blood Cell (WBC) Count 9.7 thou/uL (4.8-10.8)
[2021-09-02] MEDS ORDERED: Morphine 4 MG/ML VIAL ONE (17:40)
[2021-09-02] MEDS ORDERED: Nitroglycerin 2% Ointment 1 INCH/1 GM Packet ONE (17:40)
[2021-09-02] MEDS ORDERED: Aspirin Chewable 81 MG TAB ONE (17:40)
[2021-09-02 17:54] LABS: ALT (SGPT) 28 U/L (8-55); AST (SGOT) 22 U/L (5-34); Albumin 4.2 g/dL (3.5-5.0); Alkaline Phosphatase 76 U/L (40-110); Anion Gap 13 mmol/L (10-20); BUN (Urea Nitrogen) 13 mg/dL (8.9-20.6); Bilirubin, Total 0.2 mg/dL (0.2-1.2); Calc. Creatinine Clearance 0 mL/min (70-130); Calcium 9.8 mg/dL (7.8-10.44); Carbon Dioxide 24 mmol/L (22-29); Chloride 105 mmol/L (98-107); Globulin 3.2 g/dL (2.4-3.5); Glucose 93 mg/dL (70-105); Lipase 27 U/L (8-78); Potassium 4.3 mmol/L (3.5-5.1); Protein, Total 7.4 g/dL (6.0-8.3); Sodium 139 mmol/L (136-145)
[2021-09-02 19:39] LABS: Troponin I Less than 0.010 ng/mL (< 0.028)
== END 2021-09-02 20:20 | disposition home or self-care (01) ==
LOC: ERS 16:30
DX: R07.9 Chest pain, unspecified (principal); I11.0 Hypertensive heart disease with heart failure; I50.9 Heart failure, unspecified; I25.119 Atherosclerotic heart disease of native coronary artery with unspecified angina pectoris; E11.9 Type 2 diabetes mellitus without complications; I25.2 Old myocardial infarction; J44.9 Chronic obstructive pulmonary disease, unspecified; Z87.891 Personal history of nicotine dependence
CPT/HCPCS: 36415; 71045; 80053; 83690; 83735; 83880; 84484; 85025; 93005; 94760; 96374; J2270

== ENCOUNTER 2021-09-08 00:31 | Emergency (ER) | payer SELFPAY ==
[2021-09-08 01:00] LABS: #Basophils 0.1 thou/uL (0.0-0.2); #Eosinphils 0.5 thou/uL (0.0-0.7); #Lymphocytes 3.9 thou/uL (1.20-3.40); #Monocytes 1.1 thou/uL (0.11-0.59); %Basophils 0.9 % (0.0-1.0); %Eosinophils 5.3 % (0.0-10.0); %Lymphocytes 40.6 % (21.0-51.0); %Monocytes 11.3 % (0.0-10.0); %Neutrophils 41.9 % (42.0-75.0); Hemoglobin 14.2 g/dL (14.0-18.0); Mean Corpuscular HGB CONC 35.9 g/dL (32.0-36.0); Mean Corpuscular Hemoglobin 34.3 pg (27.0-31.0); Mean Corpuscular Volume 95.6 fL (78.0-98.0); Platelet Count 250 thou/uL (130-400); RBC Distribution Width 12.6 % (11.5-14.5); Red Blood Cell (RBC) Count 4.14 mill/uL (4.70-6.10); White Blood Cell (WBC) Count 9.6 thou/uL (4.8-10.8)
[2021-09-08 01:46] LABS: Albumin 3.8 g/dL (3.5-5.0)
[2021-09-08 01:47] LABS: Chloride 107 mmol/L (98-107); Sodium 140 mmol/L (136-145)
[2021-09-08 01:48] LABS: Calcium 9.3 mg/dL (7.8-10.44); Glucose 76 mg/dL (70-105)
[2021-09-08 01:49] LABS: Globulin 3.1 g/dL (2.4-3.5); Protein, Total 6.9 g/dL (6.0-8.3)
[2021-09-08 01:50] LABS: Bilirubin, Total 0.3 mg/dL (0.2-1.2); Carbon Dioxide 23 mmol/L (22-29)
[2021-09-08 01:51] LABS: Alkaline Phosphatase 68 U/L (40-110)
[2021-09-08 01:52] LABS: Calc. Creatinine Clearance 0 mL/min (70-130)
[2021-09-08 01:53] LABS: BUN (Urea Nitrogen) 10 mg/dL (8.9-20.6)
[2021-09-08 01:54] LABS: ALT (SGPT) 28 U/L (8-55); AST (SGOT) 19 U/L (5-34)
[2021-09-08] MEDS ORDERED: Aspirin Chewable 81 MG TAB ONE (01:56)
[2021-09-08 01:57] LABS: Anion Gap 14 mmol/L (10-20)
[2021-09-08] MEDS ORDERED: Acetaminophen 500 MG TAB ONE (02:04)
== END 2021-09-08 04:44 | disposition home or self-care (01) ==
LOC: ERS 00:31
DX: R07.9 Chest pain, unspecified (principal); I48.91 Unspecified atrial fibrillation; I25.2 Old myocardial infarction; J44.9 Chronic obstructive pulmonary disease, unspecified; E11.9 Type 2 diabetes mellitus without complications; I11.0 Hypertensive heart disease with heart failure; I50.9 Heart failure, unspecified; Z87.891 Personal history of nicotine dependence; Z86.718 Personal history of other venous thrombosis and embolism; Z79.899 Other long term (current) drug therapy; Z79.01 Long term (current) use of anticoagulants
CPT/HCPCS: 71045; 80053; 84484; 85025; 85379; 93005

== ENCOUNTER 2021-09-27 23:43 | Emergency (ER) | payer OTHER ==
[2021-09-28 00:21] LABS: #Basophils 0.1 thou/uL (0.0-0.2); #Eosinphils 0.4 thou/uL (0.0-0.7); #Lymphocytes 3.1 thou/uL (1.20-3.40); #Monocytes 0.7 thou/uL (0.11-0.59); #Neutrophils 4.3 thou/uL (1.40-6.50); %Basophils 0.9 % (0.0-1.0); %Eosinophils 4.2 % (0.0-10.0); %Lymphocytes 36.6 % (21.0-51.0); %Monocytes 7.8 % (0.0-10.0); %Neutrophils 50.6 % (42.0-75.0); Hemoglobin 14.6 g/dL (14.0-18.0); Mean Corpuscular HGB CONC 34.9 g/dL (32.0-36.0); Mean Corpuscular Hemoglobin 33.5 pg (27.0-31.0); Mean Platelet Volume 7.2 fL (7.4-10.4); Platelet Count 251 thou/uL (130-400); RBC Distribution Width 12.5 % (11.5-14.5); Red Blood Cell (RBC) Count 4.36 mill/uL (4.70-6.10); White Blood Cell (WBC) Count 8.4 thou/uL (4.8-10.8)
[2021-09-28 00:46] LABS: ALT (SGPT) 29 U/L (8-55); AST (SGOT) 19 U/L (5-34); Albumin 4.1 g/dL (3.5-5.0); Alkaline Phosphatase 67 U/L (40-110); Anion Gap 14 mmol/L (10-20); BUN (Urea Nitrogen) 9 mg/dL (8.9-20.6); Bilirubin, Total 0.4 mg/dL (0.2-1.2); CK (CPK) 103 U/L (30-200); Calc. Creatinine Clearance 0 mL/min (70-130); Calcium 9.6 mg/dL (7.8-10.44); Carbon Dioxide 22 mmol/L (22-29); Chloride 104 mmol/L (98-107); Globulin 3.1 g/dL (2.4-3.5); Glucose 103 mg/dL (70-105); Potassium 3.9 mmol/L (3.5-5.1); Protein, Total 7.2 g/dL (6.0-8.3); Sodium 136 mmol/L (136-145)
[2021-09-28] MEDS ORDERED: Magnesium 2 GM/50 ML BAG (IN WATER) ONE (01:10)
[2021-09-28] MEDS ORDERED: Acetaminophen 500 MG TAB ONE (01:10)
[2021-09-28] MEDS ORDERED: Mag-Al 1200 mg/1200 mg/30 ML UDCUP ONE (01:12)
== END 2021-09-28 02:05 | disposition left against medical advice (07) ==
LOC: ERS 23:43
DX: R07.2 Precordial pain (principal); I50.9 Heart failure, unspecified; I25.2 Old myocardial infarction; E11.9 Type 2 diabetes mellitus without complications; J44.9 Chronic obstructive pulmonary disease, unspecified; F17.210 Nicotine dependence, cigarettes, uncomplicated; I10 Essential (primary) hypertension; Z79.02 Long term (current) use of antithrombotics/antiplatelets; Z79.899 Other long term (current) drug therapy
CPT/HCPCS: 36415; 71045; 80053; 82550; 83690; 84484; 85025; 93005; J3475

== ENCOUNTER 2021-11-12 18:15 | Emergency (ER) | payer OTHER ==
[2021-11-12 18:47] LABS: #Basophils 0.1 thou/uL (0.0-0.2); #Eosinphils 0.4 thou/uL (0.0-0.7); #Lymphocytes 3.8 thou/uL (1.20-3.40); #Monocytes 0.7 thou/uL (0.11-0.59); #Neutrophils 3.6 thou/uL (1.40-6.50); %Basophils 1.2 % (0.0-1.0); %Eosinophils 4.2 % (0.0-10.0); %Lymphocytes 44.1 % (21.0-51.0); %Monocytes 8.5 % (0.0-10.0); Mean Corpuscular HGB CONC 35.7 g/dL (32.0-36.0); Mean Corpuscular Hemoglobin 34.1 pg (27.0-31.0); Mean Corpuscular Volume 95.5 fL (78.0-98.0); Mean Platelet Volume 7.5 fL (7.4-10.4); Platelet Count 261 thou/uL (130-400); RBC Distribution Width 12.4 % (11.5-14.5); White Blood Cell (WBC) Count 8.5 thou/uL (4.8-10.8)
[2021-11-12 19:07] LABS: ALT (SGPT) 29 U/L (8-55); AST (SGOT) 17 U/L (5-34); Albumin 3.9 g/dL (3.5-5.0); Alkaline Phosphatase 67 U/L (40-110); Anion Gap 15 mmol/L (10-20); BUN (Urea Nitrogen) 12 mg/dL (8.9-20.6); Bilirubin, Total 0.2 mg/dL (0.2-1.2); Calc. Creatinine Clearance 0 mL/min (70-130); Calcium 9.3 mg/dL (7.8-10.44); Carbon Dioxide 21 mmol/L (22-29); Chloride 105 mmol/L (98-107); Globulin 3.5 g/dL (2.4-3.5); Glucose 86 mg/dL (70-105); Lipase 38 U/L (8-78); Potassium 4.3 mmol/L (3.5-5.1); Protein, Total 7.4 g/dL (6.0-8.3); Sodium 137 mmol/L (136-145)
[2021-11-12 19:14] LABS: INR-International Normal Ratio 1.2; PTT 32.7 sec (22.9-36.1); Prothrombin Time 15.1 sec (12.0-14.7)
[2021-11-12] MEDS ORDERED: Aspirin Chewable 81 MG TAB ONE (20:39)
== END 2021-11-12 21:32 | disposition left against medical advice (07) ==
LOC: ERS 18:15
DX: R07.89 Other chest pain (principal); I11.0 Hypertensive heart disease with heart failure; I50.9 Heart failure, unspecified; J44.9 Chronic obstructive pulmonary disease, unspecified; I25.10 Atherosclerotic heart disease of native coronary artery without angina pectoris; I48.91 Unspecified atrial fibrillation; F17.210 Nicotine dependence, cigarettes, uncomplicated; Z79.899 Other long term (current) drug therapy
CPT/HCPCS: 36415; 71045; 80053; 83690; 83880; 84484; 85025; 85379; 85610; 85730; 93005

== ENCOUNTER 2021-12-09 19:54 | Emergency (ER) | payer SELFPAY ==
[2021-12-09 20:23] LABS: #Basophils 0.1 thou/uL (0.0-0.2); #Eosinphils 0.7 thou/uL (0.0-0.7); #Lymphocytes 3.5 thou/uL (1.20-3.40); #Monocytes 0.8 thou/uL (0.11-0.59); #Neutrophils 5.2 thou/uL (1.40-6.50); %Basophils 0.7 % (0.0-1.0); %Eosinophils 6.6 % (0.0-10.0); %Lymphocytes 34.3 % (21.0-51.0); %Monocytes 7.5 % (0.0-10.0); %Neutrophils 50.9 % (42.0-75.0); Hemoglobin 14.9 g/dL (14.0-18.0); Mean Corpuscular HGB CONC 34.7 g/dL (32.0-36.0); Mean Corpuscular Hemoglobin 33.5 pg (27.0-31.0); Mean Corpuscular Volume 96.4 fL (78.0-98.0); Mean Platelet Volume 7.4 fL (7.4-10.4); Platelet Count 256 thou/uL (130-400); RBC Distribution Width 12.4 % (11.5-14.5); Red Blood Cell (RBC) Count 4.44 mill/uL (4.70-6.10); White Blood Cell (WBC) Count 10.2 thou/uL (4.8-10.8)
[2021-12-09] MEDS ORDERED: Morphine 4 MG/ML VIAL ONE (20:44)
[2021-12-09 20:49] LABS: ALT (SGPT) 31 U/L (8-55); AST (SGOT) 23 U/L (5-34); Albumin 4.1 g/dL (3.5-5.0); Alkaline Phosphatase 69 U/L (40-110); Anion Gap 16 mmol/L (10-20); BUN (Urea Nitrogen) 12 mg/dL (8.9-20.6); Bilirubin, Total 0.4 mg/dL (0.2-1.2); Calc. Creatinine Clearance 0 mL/min (70-130); Calcium 9.4 mg/dL (7.8-10.44); Carbon Dioxide 24 mmol/L (22-29); Chloride 101 mmol/L (98-107); Globulin 3.6 g/dL (2.4-3.5); Glucose 147 mg/dL (70-105); Lipase 35 U/L (8-78); Protein, Total 7.7 g/dL (6.0-8.3); Sodium 137 mmol/L (136-145)
[2021-12-09 23:27] LABS: Troponin I Less than 0.010 ng/mL (< 0.028)
== END 2021-12-09 23:33 | disposition left against medical advice (07) ==
LOC: ERS 19:54
DX: R07.9 Chest pain, unspecified (principal); I49.3 Ventricular premature depolarization; I11.0 Hypertensive heart disease with heart failure; I50.9 Heart failure, unspecified; E11.9 Type 2 diabetes mellitus without complications; I25.10 Atherosclerotic heart disease of native coronary artery without angina pectoris; I48.91 Unspecified atrial fibrillation; J44.9 Chronic obstructive pulmonary disease, unspecified; F17.210 Nicotine dependence, cigarettes, uncomplicated; I25.2 Old myocardial infarction; Z86.718 Personal history of other venous thrombosis and embolism; Z95.5 Presence of coronary angioplasty implant and graft; Z79.01 Long term (current) use of anticoagulants; Z79.899 Other long term (current) drug therapy
CPT/HCPCS: 36415; 71045; 76705; 80053; 83690; 84484; 85025; 93005; 96374; J2270

== ENCOUNTER 2022-01-16 18:38 | Emergency (ER) | payer SELFPAY ==
[2022-01-16 19:36] LABS: #Basophils 0.1 thou/uL (0.0-0.2); #Eosinphils 0.5 thou/uL (0.0-0.7); #Lymphocytes 3.4 thou/uL (1.20-3.40); #Monocytes 0.9 thou/uL (0.11-0.59); #Neutrophils 7.5 thou/uL (1.40-6.50); %Basophils 0.5 % (0.0-1.0); %Eosinophils 4.2 % (0.0-10.0); %Lymphocytes 27.4 % (21.0-51.0); %Monocytes 7.1 % (0.0-10.0); %Neutrophils 60.9 % (42.0-75.0); Hemoglobin 14.5 g/dL (14.0-18.0); Mean Corpuscular HGB CONC 33.3 g/dL (32.0-36.0); Mean Corpuscular Hemoglobin 32.3 pg (27.0-31.0); Mean Corpuscular Volume 96.8 fL (78.0-98.0); Mean Platelet Volume 6.9 fL (7.4-10.4); Platelet Count 282 thou/uL (130-400); RBC Distribution Width 12.4 % (11.5-14.5); Red Blood Cell (RBC) Count 4.48 mill/uL (4.70-6.10); White Blood Cell (WBC) Count 12.3 thou/uL (4.8-10.8)
[2022-01-16 19:55] LABS: ALT (SGPT) 38 U/L (8-55); AST (SGOT) 27 U/L (5-34); Albumin 4.3 g/dL (3.5-5.0); Alkaline Phosphatase 61 U/L (40-110); Anion Gap 14 mmol/L (10-20); BUN (Urea Nitrogen) 11 mg/dL (8.9-20.6); Bilirubin, Total 0.3 mg/dL (0.2-1.2); Calc. Creatinine Clearance 0 mL/min (70-130); Calcium 9.4 mg/dL (7.8-10.44); Carbon Dioxide 23 mmol/L (22-29); Chloride 104 mmol/L (98-107); Globulin 3.3 g/dL (2.4-3.5); Glucose 96 mg/dL (70-105); Lipase 27 U/L (8-78); Potassium 4.3 mmol/L (3.5-5.1); Protein, Total 7.6 g/dL (6.0-8.3); Sodium 137 mmol/L (136-145)
[2022-01-16 21:20] LABS: INR-International Normal Ratio 3.3
[2022-01-16 21:21] LABS: PTT 55.1 sec (22.9-36.1)
[2022-01-16 21:23] LABS: D-Dimer Test Less than 0.27 *mcg/mL (0.27-0.43)
[2022-01-16] MEDS ORDERED: Aspirin Chewable 81 MG TAB ONE ×2 (21:25→21:32)
[2022-01-16] MEDS ORDERED: Famotidine/PF 20 mg/2ml Vial ONE (21:25)
[2022-01-16] MEDS ORDERED: methylPREDNISolone Sod Succ/PF 125 MG/2 ML VIAL ONE (21:25)
[2022-01-16] MEDS ORDERED: Nitroglycerin 2% Ointment 1 INCH/1 GM Packet ONE (21:25)
[2022-01-16] MEDS ORDERED: diphenhydrAMINE 50 MG/ML VIAL ONE (21:25)
== END 2022-01-16 22:11 | disposition home or self-care (01) ==
LOC: ERS 18:38
DX: R07.9 Chest pain, unspecified (principal); I49.1 Atrial premature depolarization; I11.0 Hypertensive heart disease with heart failure; I50.9 Heart failure, unspecified; I25.10 Atherosclerotic heart disease of native coronary artery without angina pectoris; I48.91 Unspecified atrial fibrillation; E11.9 Type 2 diabetes mellitus without complications; J44.9 Chronic obstructive pulmonary disease, unspecified; I25.2 Old myocardial infarction; F17.210 Nicotine dependence, cigarettes, uncomplicated; Z95.5 Presence of coronary angioplasty implant and graft; Z86.718 Personal history of other venous thrombosis and embolism; Z79.01 Long term (current) use of anticoagulants; Z79.899 Other long term (current) drug therapy
CPT/HCPCS: 36415; 71045; 80053; 83690; 84484; 85025; 85379; 85610; 85730; 93005; 96374; 96375; J1200; J2930; S0028

== ENCOUNTER 2022-03-24 17:36 | Emergency (ER) | payer SELFPAY ==
[2022-03-24 18:25] LABS: #Basophils 0.1 thou/uL (0.0-0.2); #Eosinphils 0.6 thou/uL (0.0-0.7); #Lymphocytes 4.1 thou/uL (1.20-3.40); #Monocytes 0.6 thou/uL (0.11-0.59); #Neutrophils 5.4 thou/uL (1.40-6.50); %Basophils 0.7 % (0.0-1.0); %Eosinophils 5.6 % (0.0-10.0); %Lymphocytes 37.7 % (21.0-51.0); %Monocytes 5.8 % (0.0-10.0); %Neutrophils 50.2 % (42.0-75.0); Hemoglobin 14.4 g/dL (14.0-18.0); Mean Corpuscular HGB CONC 33.2 g/dL (32.0-36.0); Mean Corpuscular Hemoglobin 31.6 pg (27.0-31.0); Mean Corpuscular Volume 95.2 fL (78.0-98.0); Mean Platelet Volume 7.4 fL (7.4-10.4); Platelet Count 249 thou/uL (130-400); RBC Distribution Width 11.9 % (11.5-14.5); Red Blood Cell (RBC) Count 4.55 mill/uL (4.70-6.10); White Blood Cell (WBC) Count 10.8 thou/uL (4.8-10.8)
[2022-03-24 18:46] LABS: ALT (SGPT) 35 U/L (8-55); AST (SGOT) 26 U/L (5-34); Albumin 4.3 g/dL (3.5-5.0); Alkaline Phosphatase 62 U/L (40-110); Anion Gap 16 mmol/L (10-20); BUN (Urea Nitrogen) 12 mg/dL (8.9-20.6); Bilirubin, Total 0.5 mg/dL (0.2-1.2); Calc. Creatinine Clearance 0 mL/min (70-130); Calcium 9.3 mg/dL (7.8-10.44); Carbon Dioxide 22 mmol/L (22-29); Chloride 106 mmol/L (98-107); Glucose 83 mg/dL (70-105); Potassium 4.3 mmol/L (3.5-5.1); Protein, Total 7.3 g/dL (6.0-8.3); Sodium 140 mmol/L (136-145)
[2022-03-24] MEDS ORDERED: Morphine 4 MG/ML VIAL ONE (18:56)
[2022-03-24] MEDS ORDERED: Ondansetron ODT 4 MG TAB ONE (18:56)
== END 2022-03-24 20:13 | disposition home or self-care (01) ==
LOC: ERS 17:36
DX: J18.9 Pneumonia, unspecified organism (principal); R07.89 Other chest pain; I11.0 Hypertensive heart disease with heart failure; I50.9 Heart failure, unspecified; F17.210 Nicotine dependence, cigarettes, uncomplicated; I25.10 Atherosclerotic heart disease of native coronary artery without angina pectoris; I25.2 Old myocardial infarction; I48.91 Unspecified atrial fibrillation; E11.9 Type 2 diabetes mellitus without complications; J44.9 Chronic obstructive pulmonary disease, unspecified; Z86.718 Personal history of other venous thrombosis and embolism; Z95.5 Presence of coronary angioplasty implant and graft; Z79.01 Long term (current) use of anticoagulants; Z79.899 Other long term (current) drug therapy
CPT/HCPCS: 36415; 71045; 80053; 83690; 83880; 84484; 85025; 93005; 96372; J2270; Q0162

== ENCOUNTER 2022-03-28 22:43 | Emergency (ER) | payer SELFPAY | END 2022-03-29 00:55 | disposition left against medical advice (07) | LOC: ERS 22:43 | DX: Z53.21 Procedure and treatment not carried out due to patient leaving prior to being seen by health care provider (principal) | CPT/HCPCS: 93005 ==

== ENCOUNTER 2022-04-20 21:14 | Emergency (ER) | payer SELFPAY ==
[2022-04-20 21:44] LABS: #Eosinphils 0.5 thou/uL (0.0-0.7); #Lymphocytes 3.5 thou/uL (1.20-3.40); #Monocytes 0.6 thou/uL (0.11-0.59); #Neutrophils 4.9 thou/uL (1.40-6.50); %Basophils 0.4 % (0.0-1.0); %Monocytes 6.1 % (0.0-10.0); %Neutrophils 51.5 % (42.0-75.0); Hemoglobin 13.9 g/dL (14.0-18.0); Mean Corpuscular HGB CONC 34.2 g/dL (32.0-36.0); Mean Corpuscular Hemoglobin 32.1 pg (27.0-31.0); Mean Corpuscular Volume 93.9 fL (78.0-98.0); Mean Platelet Volume 7.6 fL (7.4-10.4); Platelet Count 217 thou/uL (130-400); RBC Distribution Width 11.7 % (11.5-14.5); Red Blood Cell (RBC) Count 4.34 mill/uL (4.70-6.10); White Blood Cell (WBC) Count 9.4 thou/uL (4.8-10.8)
[2022-04-20 22:04] LABS: ALT (SGPT) 39 U/L (8-55); AST (SGOT) 26 U/L (5-34); Albumin 4.2 g/dL (3.5-5.0); Alkaline Phosphatase 60 U/L (40-110); Anion Gap 14 mmol/L (10-20); BUN (Urea Nitrogen) 10 mg/dL (8.9-20.6); Bilirubin, Total 0.4 mg/dL (0.2-1.2); Calc. Creatinine Clearance 0 mL/min (70-130); Calcium 9.3 mg/dL (7.8-10.44); Carbon Dioxide 23 mmol/L (22-29); Chloride 105 mmol/L (98-107); Estimated GFR 75; Globulin 2.9 g/dL (2.4-3.5); Glucose 104 mg/dL (70-105); Potassium 4.3 mmol/L (3.5-5.1); Protein, Total 7.1 g/dL (6.0-8.3); Sodium 138 mmol/L (136-145)
[2022-04-20] MEDS ORDERED: Acetaminophen 500 MG TAB ONE (22:43)
[2022-04-20 22:56] LABS: Prothrombin Time 13.3 sec (12.0-14.7)
[2022-04-20 22:57] LABS: PTT 31.4 sec (22.9-36.1)
[2022-04-21 00:28] LABS: Troponin I Less than 0.010 ng/mL (< 0.028)
== END 2022-04-21 00:35 | disposition home or self-care (01) ==
LOC: ERS 21:14
DX: R07.9 Chest pain, unspecified (principal); E11.9 Type 2 diabetes mellitus without complications; I10 Essential (primary) hypertension; Z87.891 Personal history of nicotine dependence; Z79.899 Other long term (current) drug therapy; Z79.01 Long term (current) use of anticoagulants
CPT/HCPCS: 36415; 71045; 80053; 84484; 85025; 85610; 85730; 93005

== ENCOUNTER 2022-05-19 16:37 | Emergency (ER) | payer SELFPAY ==
[2022-05-19 17:27] LABS: #Basophils 0.1 thou/uL (0.0-0.2); #Eosinphils 0.4 thou/uL (0.0-0.7); #Lymphocytes 3.8 thou/uL (1.20-3.40); #Monocytes 0.6 thou/uL (0.11-0.59); %Basophils 0.9 % (0.0-1.0); %Eosinophils 4.4 % (0.0-10.0); %Lymphocytes 43.3 % (21.0-51.0); %Monocytes 6.5 % (0.0-10.0); Hemoglobin 14.1 g/dL (14.0-18.0); Mean Corpuscular HGB CONC 34.3 g/dL (32.0-36.0); Mean Corpuscular Hemoglobin 31.7 pg (27.0-31.0); Mean Corpuscular Volume 92.5 fL (78.0-98.0); Platelet Count 218 thou/uL (130-400); RBC Distribution Width 12.2 % (11.5-14.5); Red Blood Cell (RBC) Count 4.44 mill/uL (4.70-6.10); White Blood Cell (WBC) Count 8.8 thou/uL (4.8-10.8)
[2022-05-19 17:51] LABS: ALT (SGPT) 38 U/L (8-55); AST (SGOT) 24 U/L (5-34); Alkaline Phosphatase 56 U/L (40-110); Anion Gap 12 mmol/L (10-20); BUN (Urea Nitrogen) 8 mg/dL (8.9-20.6); Bilirubin, Total 0.3 mg/dL (0.2-1.2); Calc. Creatinine Clearance 0 mL/min (70-130); Carbon Dioxide 23 mmol/L (22-29); Chloride 107 mmol/L (98-107); Estimated GFR 87; Globulin 3.1 g/dL (2.4-3.5); Glucose 146 mg/dL (70-105); Protein, Total 7.1 g/dL (6.0-8.3); Sodium 138 mmol/L (136-145)
[2022-05-19 18:58] LABS: INR-International Normal Ratio 1.3; PTT 32.7 sec (22.9-36.1); Prothrombin Time 16.3 sec (12.0-14.7)
== END 2022-05-19 18:54 | disposition left against medical advice (07) ==
LOC: ERS 16:37
DX: R07.9 Chest pain, unspecified (principal); I10 Essential (primary) hypertension; E78.5 Hyperlipidemia, unspecified; E11.9 Type 2 diabetes mellitus without complications; Z87.891 Personal history of nicotine dependence
CPT/HCPCS: 71045; 80053; 84484; 85025; 85610; 85730; 93005

== ENCOUNTER 2022-10-18 10:10 | Emergency (ER) | payer SELFPAY ==
[2022-10-18 11:04] LABS: #Basophils 0.1 thou/uL (0.0-0.2); #Eosinphils 0.5 thou/uL (0.0-0.7); #Lymphocytes 3.1 thou/uL (1.20-3.40); #Neutrophils 6.6 thou/uL (1.40-6.50); %Basophils 0.6 % (0.0-1.0); %Eosinophils 4.1 % (0.0-10.0); %Lymphocytes 27.8 % (21.0-51.0); %Monocytes 8.7 % (0.0-10.0); %Neutrophils 58.8 % (42.0-75.0); Hemoglobin 14.4 g/dL (14.0-18.0); Mean Corpuscular Hemoglobin 31.5 pg (27.0-31.0); Mean Corpuscular Volume 92.7 fl (78.0-98.0); Mean Platelet Volume 7.7 fL (7.4-10.4); Platelet Count 249 10x3/uL (130-400); RBC Distribution Width 12.3 % (11.5-14.5); Red Blood Cell (RBC) Count 4.57 mill/uL (4.70-6.10); White Blood Cell (WBC) Count 11.2 10x3/uL (4.8-10.8)
[2022-10-18 11:28] LABS: ALT (SGPT) 47 U/L (8-55); AST (SGOT) 28 U/L (5-34); Albumin 4.3 g/dL (3.5-5.0); Alkaline Phosphatase 61 U/L (40-110); Anion Gap 12 mmol/L (10-20); BUN (Urea Nitrogen) 11 mg/dL (8.9-20.6); Bilirubin, Total 0.5 mg/dL (0.2-1.2); Calc. Creatinine Clearance 0 mL/min (70-130); Calcium 9.4 mg/dL (7.8-10.44); Carbon Dioxide 24 mmol/L (22-29); Chloride 104 mmol/L (98-107); Estimated GFR 101; Globulin 2.9 g/dL (2.4-3.5); Glucose 87 mg/dL (70-105); Lipase 25 U/L (8-78); Potassium 4.3 mmol/L (3.5-5.1); Protein, Total 7.2 g/dL (6.0-8.3); Sodium 136 mmol/L (136-145)
[2022-10-18] MEDS ORDERED: Mag-Al 1200 mg/1200 mg/30 ML UDCUP ONE (11:32)
[2022-10-18] MEDS ORDERED: Lidocaine Viscous Sol 2% 15 ml UD Cup ONE (11:32)
[2022-10-18] MEDS ORDERED: Aspirin Chewable 81 MG TAB ONE (11:32)
[2022-10-18] MEDS ORDERED: Nitroglycerin 2% Ointment 1 INCH/1 GM Packet ONE (11:32)
== END 2022-10-18 13:44 | disposition home or self-care (01) ==
LOC: ERS 10:10
DX: R07.9 Chest pain, unspecified (principal); D72.829 Elevated white blood cell count, unspecified; E11.9 Type 2 diabetes mellitus without complications; I10 Essential (primary) hypertension; E78.5 Hyperlipidemia, unspecified; Z87.891 Personal history of nicotine dependence
CPT/HCPCS: 36415; 71045; 80053; 83690; 84484; 85025; 93005

== ENCOUNTER 2022-11-18 18:47 | Emergency (ER) | payer SELFPAY ==
[2022-11-18] MEDS ORDERED: Nitroglycerin 2% Ointment 1 INCH/1 GM Packet ONE (19:51)
[2022-11-18 19:57] LABS: #Basophils 0.1 thou/uL (0.0-0.2); #Eosinphils 0.5 thou/uL (0.0-0.7); #Lymphocytes 3.8 thou/uL (1.20-3.40); #Monocytes 0.9 thou/uL (0.11-0.59); #Neutrophils 6.2 thou/uL (1.40-6.50); %Basophils 0.7 % (0.0-1.0); %Eosinophils 4.2 % (0.0-10.0); %Lymphocytes 33.2 % (21.0-51.0); %Monocytes 7.7 % (0.0-10.0); %Neutrophils 54.3 % (42.0-75.0); Hemoglobin 14.2 g/dL (14.0-18.0); Mean Corpuscular HGB CONC 34.7 g/dL (32.0-36.0); Mean Corpuscular Hemoglobin 31.8 pg (27.0-31.0); Mean Corpuscular Volume 91.7 fl (78.0-98.0); Platelet Count 239 10x3/uL (130-400); RBC Distribution Width 12.9 % (11.5-14.5); Red Blood Cell (RBC) Count 4.46 mill/uL (4.70-6.10); White Blood Cell (WBC) Count 11.3 10x3/uL (4.8-10.8)
[2022-11-18 20:19] LABS: ALT (SGPT) 45 U/L (8-55); AST (SGOT) 30 U/L (5-34); Albumin 4.5 g/dL (3.5-5.0); Alkaline Phosphatase 64 U/L (40-110); Anion Gap 15 mmol/L (10-20); BUN (Urea Nitrogen) 15 mg/dL (8.9-20.6); Bilirubin, Total 0.3 mg/dL (0.2-1.2); Calc. Creatinine Clearance 0 mL/min (70-130); Calcium 9.8 mg/dL (7.8-10.44); Carbon Dioxide 24 mmol/L (22-29); Chloride 104 mmol/L (98-107); Estimated GFR 73; Globulin 3.4 g/dL (2.4-3.5); Glucose 113 mg/dL (70-105); Lipase 23 U/L (8-78); Potassium 4.3 mmol/L (3.5-5.1); Protein, Total 7.9 g/dL (6.0-8.3); Sodium 139 mmol/L (136-145)
== END 2022-11-18 21:18 | disposition home or self-care (01) ==
LOC: ERS 18:47
DX: R07.9 Chest pain, unspecified (principal); E78.5 Hyperlipidemia, unspecified; E11.9 Type 2 diabetes mellitus without complications; I11.0 Hypertensive heart disease with heart failure; I50.9 Heart failure, unspecified; Z87.891 Personal history of nicotine dependence; Z79.01 Long term (current) use of anticoagulants; Z79.899 Other long term (current) drug therapy
CPT/HCPCS: 71045; 80053; 83690; 84484; 85025; 93005

== ENCOUNTER 2022-12-12 17:40 | Emergency (ER) | payer SELFPAY ==
[2022-12-12 18:13] LABS: #Basophils 0.1 thou/uL (0.0-0.2); #Eosinphils 0.6 thou/uL (0.0-0.7); #Lymphocytes 3.3 thou/uL (1.20-3.40); #Monocytes 0.7 thou/uL (0.11-0.59); %Lymphocytes 34.3 % (21.0-51.0); %Monocytes 7.1 % (0.0-10.0); %Neutrophils 51.6 % (42.0-75.0); Hemoglobin 13.4 g/dL (14.0-18.0); Mean Corpuscular HGB CONC 34.6 g/dL (32.0-36.0); Mean Corpuscular Volume 92.7 fl (78.0-98.0); Mean Platelet Volume 7.9 fL (7.4-10.4); Platelet Count 221 10x3/uL (130-400); Red Blood Cell (RBC) Count 4.17 mill/uL (4.70-6.10); White Blood Cell (WBC) Count 9.7 10x3/uL (4.8-10.8)
[2022-12-12 18:32] LABS: ALT (SGPT) 38 U/L (8-55); AST (SGOT) 32 U/L (5-34); Albumin 4.3 g/dL (3.5-5.0); Alkaline Phosphatase 62 U/L (40-110); Anion Gap 17 mmol/L (10-20); BUN (Urea Nitrogen) 19 mg/dL (8.9-20.6); Bilirubin, Total 0.3 mg/dL (0.2-1.2); Calc. Creatinine Clearance 0 mL/min (70-130); Calcium 9.2 mg/dL (7.8-10.44); Carbon Dioxide 21 mmol/L (22-29); Chloride 102 mmol/L (98-107); Estimated GFR 74; Globulin 2.8 g/dL (2.4-3.5); Glucose 203 mg/dL (70-105); Potassium 3.9 mmol/L (3.5-5.1); Protein, Total 7.1 g/dL (6.0-8.3); Sodium 136 mmol/L (136-145)
== END 2022-12-12 20:22 | disposition left against medical advice (07) ==
LOC: ERS 17:40
DX: Z53.21 Procedure and treatment not carried out due to patient leaving prior to being seen by health care provider (principal)
CPT/HCPCS: 36415; 80053; 84484; 85025; 93005

== ENCOUNTER 2023-05-30 19:00 | Emergency (ER) | payer SELFPAY ==
[2023-05-30 19:35] LABS: #Basophils 0.1 thou/uL (0.0-0.2); #Eosinphils 0.5 thou/uL (0.0-0.7); #Monocytes 0.9 thou/uL (0.11-0.59); #Neutrophils 6.2 thou/uL (1.40-6.50); %Basophils 0.7 % (0.0-1.0); %Eosinophils 4.3 % (0.0-10.0); %Lymphocytes 30.9 % (21.0-51.0); %Monocytes 7.7 % (0.0-10.0); Hematocrit 38.7 % (42.0-52.0); Hemoglobin 13.4 g/dL (14.0-18.0); Mean Corpuscular HGB CONC 34.6 g/dL (32.0-36.0); Mean Corpuscular Hemoglobin 30.9 pg (27.0-31.0); Mean Corpuscular Volume 89.4 fl (78.0-98.0); Mean Platelet Volume 9.7 fL (7.4-10.4); Platelet Count 240 10x3/uL (130-400); RBC Distribution Width 14.1 % (11.5-14.5); Red Blood Cell (RBC) Count 4.33 mill/uL (4.70-6.10); White Blood Cell (WBC) Count 11.2 10x3/uL (4.8-10.8)
[2023-05-30 19:59] LABS: ALT (SGPT) 29 U/L (8-55); AST (SGOT) 22 U/L (5-34); Alkaline Phosphatase 84 U/L (40-110); Anion Gap 13 mmol/L (10-20); BUN (Urea Nitrogen) 12 mg/dL (8.9-20.6); Bilirubin, Total 0.3 mg/dL (0.2-1.2); Calc. Creatinine Clearance 0 mL/min (70-130); Carbon Dioxide 21 mmol/L (22-29); Chloride 108 mmol/L (98-107); Estimated GFR 77; Globulin 3.1 g/dL (2.4-3.5); Glucose 96 mg/dL (70-105); Potassium 3.8 mmol/L (3.5-5.1); Protein, Total 7.1 g/dL (6.0-8.3); Sodium 138 mmol/L (136-145)
[2023-05-30 20:02] LABS: INR-International Normal Ratio 1.3; PTT 30.1 sec (22.9-36.1); Prothrombin Time 16.8 sec (12.0-14.7)
[2023-05-30 20:03] LABS: Acetaminophen Less than 10 mcg/mL (10.0-30.0); Alcohol Less than 10.0 mg/dL (Less than 10); Salicylate Less than 8.0 mg/dL (15.0-30.0)
[2023-05-30 20:06] LABS: Troponin I Less than 0.010 ng/mL (< 0.028)
[2023-05-30] MEDS ORDERED: fentaNYL 50 mcg/mL 1 mL Vial ONE (22:02)
== END 2023-05-30 22:27 | disposition home or self-care (01) ==
LOC: ERS 19:00
DX: R07.89 Other chest pain (principal); I25.10 Atherosclerotic heart disease of native coronary artery without angina pectoris; I50.9 Heart failure, unspecified; F17.210 Nicotine dependence, cigarettes, uncomplicated; Z79.01 Long term (current) use of anticoagulants; Z79.899 Other long term (current) drug therapy
CPT/HCPCS: 36415; 71045; 80053; 80307; 83880; 84484; 85025; 85610; 85730; 93005; 96374; J3010

== ENCOUNTER 2023-06-04 18:04 | Emergency (ER) | payer SELFPAY ==
[2023-06-04] MEDS ORDERED: Ondansetron PF 4 MG/2 ML Vial ONE (18:24)
[2023-06-04] MEDS ORDERED: levETIRAcetam 500 MG/5 ML VIAL ONE (18:24)
[2023-06-04] MEDS ORDERED: Morphine 4 MG/ML VIAL ONE (18:24)
[2023-06-04 18:52] LABS: #Basophils 0.1 thou/uL (0.0-0.2); #Eosinphils 0.6 thou/uL (0.0-0.7); #Monocytes 1.1 thou/uL (0.11-0.59); #Neutrophils 4.5 thou/uL (1.40-6.50); %Basophils 0.7 % (0.0-1.0); %Eosinophils 5.4 % (0.0-10.0); %Lymphocytes 38.4 % (21.0-51.0); %Monocytes 10.7 % (0.0-10.0); %Neutrophils 44.3 % (42.0-75.0); Hematocrit 38.2 % (42.0-52.0); Hemoglobin 13.2 g/dL (14.0-18.0); Mean Corpuscular HGB CONC 34.6 g/dL (32.0-36.0); Mean Corpuscular Hemoglobin 31.1 pg (27.0-31.0); Mean Corpuscular Volume 90.1 fl (78.0-98.0); Mean Platelet Volume 10.3 fL (7.4-10.4); Platelet Count 236 10x3/uL (130-400); RBC Distribution Width 14.6 % (11.5-14.5); Red Blood Cell (RBC) Count 4.24 mill/uL (4.70-6.10); White Blood Cell (WBC) Count 10.2 10x3/uL (4.8-10.8)
[2023-06-04 19:16] LABS: ALT (SGPT) 28 U/L (8-55); AST (SGOT) 21 U/L (5-34); Albumin 4.1 g/dL (3.5-5.0); Alkaline Phosphatase 87 U/L (40-110); Anion Gap 14 mmol/L (10-20); BUN (Urea Nitrogen) 13 mg/dL (8.9-20.6); Bilirubin, Total 0.3 mg/dL (0.2-1.2); Calc. Creatinine Clearance 0 mL/min (70-130); Calcium 9.6 mg/dL (7.8-10.44); Carbon Dioxide 22 mmol/L (22-29); Chloride 107 mmol/L (98-107); Estimated GFR 92; Globulin 2.9 g/dL (2.4-3.5); Glucose 90 mg/dL (70-105); Potassium 4.4 mmol/L (3.5-5.1); Sodium 139 mmol/L (136-145)
[2023-06-04] MEDS ORDERED: Morphine 2 MG/ML VIAL ONE (19:18)
[2023-06-04 19:21] LABS: Troponin I Less than 0.010 ng/mL (< 0.028)
[2023-06-04 21:06] LABS: Troponin I Less than 0.010 ng/mL (< 0.028)
== END 2023-06-04 22:08 | disposition home or self-care (01) ==
LOC: ERS 18:04
DX: R07.9 Chest pain, unspecified (principal); I48.91 Unspecified atrial fibrillation; I50.9 Heart failure, unspecified; F17.210 Nicotine dependence, cigarettes, uncomplicated; Z79.01 Long term (current) use of anticoagulants; Z79.899 Other long term (current) drug therapy
CPT/HCPCS: 36415; 70450; 71045; 80053; 83880; 84484; 85025; 93005; 96365; 96375; 96376; J1953; J2270; J2272; J2405

== ENCOUNTER 2023-06-23 22:37 | Emergency (ER) | payer SELFPAY ==
[2023-06-23 22:56] LABS: #Basophils 0.1 thou/uL (0.0-0.2); #Eosinphils 0.6 thou/uL (0.0-0.7); #Monocytes 0.8 thou/uL (0.11-0.59); #Neutrophils 3.3 thou/uL (1.40-6.50); %Eosinophils 7.1 % (0.0-10.0); %Monocytes 9.1 % (0.0-10.0); %Neutrophils 40.3 % (42.0-75.0); Hematocrit 38.4 % (42.0-52.0); Hemoglobin 13.1 g/dL (14.0-18.0); Mean Corpuscular HGB CONC 34.1 g/dL (32.0-36.0); Mean Corpuscular Volume 90.8 fl (78.0-98.0); Mean Platelet Volume 10.1 fL (7.4-10.4); Platelet Count 235 10x3/uL (130-400); RBC Distribution Width 14.3 % (11.5-14.5); Red Blood Cell (RBC) Count 4.23 mill/uL (4.70-6.10); White Blood Cell (WBC) Count 8.3 10x3/uL (4.8-10.8)
[2023-06-23 23:21] LABS: ALT (SGPT) 27 U/L (8-55); AST (SGOT) 23 U/L (5-34); Albumin 4.2 g/dL (3.5-5.0); Alkaline Phosphatase 83 U/L (40-110); Anion Gap 11 mmol/L (10-20); BUN (Urea Nitrogen) 13 mg/dL (8.9-20.6); Bilirubin, Total 0.3 mg/dL (0.2-1.2); Calc. Creatinine Clearance 0 mL/min (70-130); Calcium 9.2 mg/dL (7.8-10.44); Carbon Dioxide 26 mmol/L (22-29); Chloride 106 mmol/L (98-107); Estimated GFR 85; Globulin 3.2 g/dL (2.4-3.5); Glucose 84 mg/dL (70-105); Magnesium 1.9 mg/dL (1.6-2.6); Potassium 4.2 mmol/L (3.5-5.1); Protein, Total 7.4 g/dL (6.0-8.3); Sodium 139 mmol/L (136-145)
[2023-06-23 23:26] LABS: Troponin I Less than 0.010 ng/mL (< 0.028)
[2023-06-24] MEDS ORDERED: Acetaminophen 500 MG TAB ONE (00:40)
== END 2023-06-24 01:11 | disposition left against medical advice (07) ==
LOC: ERS 22:37
DX: R07.9 Chest pain, unspecified (principal); I25.10 Atherosclerotic heart disease of native coronary artery without angina pectoris; I50.9 Heart failure, unspecified; I48.91 Unspecified atrial fibrillation; F17.210 Nicotine dependence, cigarettes, uncomplicated; Z79.01 Long term (current) use of anticoagulants; Z79.899 Other long term (current) drug therapy
CPT/HCPCS: 71045; 80053; 83735; 84484; 85025; 93005

== ENCOUNTER 2023-08-02 20:11 | Emergency (ER) | payer SELFPAY ==
[~2023-08-02 20:11] MED LIST changes: -Iopamidol 370 76% 100 ML VIAL ONE; +Iopamidol-370 76% 500 ML MDV (1 ML CHARGE) ONE
[2023-08-02] MEDS ORDERED: Nitroglycerin 0.4 MG TAB (25 Tab Bottle) ONE (20:19)
[2023-08-02 20:39] LABS: #Basophils 0.2 thou/uL (0.0-0.2); #Eosinphils 0.6 thou/uL (0.0-0.7); #Monocytes 0.9 thou/uL (0.11-0.59); #Neutrophils 4.2 thou/uL (1.40-6.50); %Basophils 1.9 % (0.0-1.0); %Eosinophils 6.8 % (0.0-10.0); %Lymphocytes 36.1 % (21.0-51.0); %Monocytes 9.7 % (0.0-10.0); %Neutrophils 44.9 % (42.0-75.0); Hematocrit 40.4 % (42.0-52.0); Hemoglobin 12.4 g/dL (14.0-18.0); Mean Corpuscular HGB CONC 30.7 g/dL (32.0-36.0); Mean Corpuscular Hemoglobin 31.2 pg (27.0-31.0); Mean Corpuscular Volume 101.5 fl (78.0-98.0); Mean Platelet Volume 10.5 fL (7.4-10.4); Platelet Count 285 10x3/uL (130-400); Red Blood Cell (RBC) Count 3.98 mill/uL (4.70-6.10); White Blood Cell (WBC) Count 9.3 10x3/uL (4.8-10.8)
[2023-08-02] MEDS ORDERED: diphenhydrAMINE 50 MG/ML VIAL ONE (20:58)
[2023-08-02] MEDS ORDERED: fentaNYL 50 mcg/mL 1 mL Vial ONE ×2 (20:59→22:27)
[2023-08-02] MEDS ORDERED: methylPREDNISolone Sod Succ 40 MG VIAL ONE (21:00)
[2023-08-02] MEDS ORDERED: Famotidine/PF 20 mg/2ml Vial ONE (21:00)
[2023-08-02 21:02] LABS: Albumin 4.2 g/dL (3.5-5.0)
[2023-08-02 21:04] LABS: Calcium 9.1 mg/dL (7.8-10.44); Chloride 108 mmol/L (98-107); Potassium 4.6 mmol/L (3.5-5.1); Sodium 136 mmol/L (136-145)
[2023-08-02 21:05] LABS: Globulin 3.7 g/dL (2.4-3.5); Glucose 128 mg/dL (70-105); Protein, Total 7.9 g/dL (6.0-8.3)
[2023-08-02 21:06] LABS: Carbon Dioxide 15 mmol/L (22-29)
[2023-08-02 21:07] LABS: Bilirubin, Total 0.2 mg/dL (0.2-1.2); Troponin I Less than 0.010 ng/mL (< 0.028)
[2023-08-02 21:08] LABS: Alkaline Phosphatase 84 U/L (40-110); Calc. Creatinine Clearance 0 mL/min (70-130); Estimated GFR 71
[2023-08-02 21:09] LABS: BUN (Urea Nitrogen) 15 mg/dL (8.9-20.6)
[2023-08-02 21:10] LABS: AST (SGOT) 36 U/L (5-34)
[2023-08-02 21:11] LABS: ALT (SGPT) 27 U/L (8-55); Lipase 33 U/L (8-78)
[2023-08-02 21:22] LABS: Anion Gap 18 mmol/L (10-20)
== END 2023-08-03 00:30 | disposition home or self-care (01) ==
LOC: ERS 20:11
DX: R07.9 Chest pain, unspecified (principal)
CPT/HCPCS: 71045; 71275; 80053; 83690; 83880; 84484; 85025; 93005; 96374; 96375; 96376; J1200; J2920; J3010; S0028

== ENCOUNTER 2023-08-19 21:24 | Emergency (ER) | payer SELFPAY ==
[2023-08-19] MEDS ORDERED: Nitroglycerin 0.4 MG TAB 1 EACH ONE (22:07)
[2023-08-19 22:46] LABS: #Basophils 0.1 thou/uL (0.0-0.2); #Eosinphils 0.5 thou/uL (0.0-0.7); #Monocytes 0.6 thou/uL (0.11-0.59); %Basophils 0.9 % (0.0-1.0); %Eosinophils 6.9 % (0.0-10.0); %Lymphocytes 33.9 % (21.0-51.0); %Monocytes 7.2 % (0.0-10.0); %Neutrophils 50.3 % (42.0-75.0); Hematocrit 38.3 % (42.0-52.0); Hemoglobin 13.1 g/dL (14.0-18.0); Mean Corpuscular HGB CONC 34.2 g/dL (32.0-36.0); Mean Corpuscular Hemoglobin 31.6 pg (27.0-31.0); Mean Corpuscular Volume 92.3 fl (78.0-98.0); Mean Platelet Volume 10.1 fL (7.4-10.4); Platelet Count 235 10x3/uL (130-400); RBC Distribution Width 14.6 % (11.5-14.5); Red Blood Cell (RBC) Count 4.15 mill/uL (4.70-6.10); White Blood Cell (WBC) Count 7.9 10x3/uL (4.8-10.8)
[2023-08-19 23:08] LABS: Troponin I Less than 0.010 ng/mL (< 0.028)
[2023-08-19 23:28] LABS: ALT (SGPT) 29 U/L (8-55); AST (SGOT) 20 U/L (5-34); Albumin 4.2 g/dL (3.5-5.0); Alkaline Phosphatase 90 U/L (40-110); Anion Gap 15 mmol/L (10-20); BUN (Urea Nitrogen) 9 mg/dL (8.9-20.6); Bilirubin, Total 0.3 mg/dL (0.2-1.2); Calc. Creatinine Clearance 0 mL/min (70-130); Calcium 8.8 mg/dL (7.8-10.44); Carbon Dioxide 24 mmol/L (22-29); Chloride 105 mmol/L (98-107); Estimated GFR 98; Globulin 2.7 g/dL (2.4-3.5); Glucose 124 mg/dL (70-105); Potassium 4.2 mmol/L (3.5-5.1); Protein, Total 6.9 g/dL (6.0-8.3); Sodium 140 mmol/L (136-145)
== END 2023-08-19 22:55 | disposition left against medical advice (07) ==
LOC: ERS 21:24
DX: R07.9 Chest pain, unspecified (principal)
CPT/HCPCS: 36415; 71045; 80053; 84484; 85025; 93005

== ENCOUNTER 2023-09-22 15:45 | Observation (INO) | payer SELFPAY ==
[2023-09-22] MEDS ORDERED: Nitroglycerin 0.4 MG TAB 1 EACH ONE (16:04)
[2023-09-22] MEDS ORDERED: Acetaminophen 500 MG TAB ONE (16:04)
[2023-09-22 16:14] LABS: #Eosinphils 0.5 thou/uL (0.0-0.7); #Monocytes 0.9 thou/uL (0.11-0.59); #Neutrophils 3.7 thou/uL (1.40-6.50); %Basophils 0.5 % (0.0-1.0); %Eosinophils 6.1 % (0.0-10.0); %Lymphocytes 40.2 % (21.0-51.0); %Monocytes 10.2 % (0.0-10.0); %Neutrophils 42.5 % (42.0-75.0); Hematocrit 38.4 % (42.0-52.0); Hemoglobin 13.3 g/dL (14.0-18.0); Mean Corpuscular HGB CONC 34.6 g/dL (32.0-36.0); Mean Corpuscular Hemoglobin 31.4 pg (27.0-31.0); Mean Corpuscular Volume 90.8 fl (78.0-98.0); Mean Platelet Volume 10.4 fL (7.4-10.4); Platelet Count 233 10x3/uL (130-400); RBC Distribution Width 14.1 % (11.5-14.5); Red Blood Cell (RBC) Count 4.23 mill/uL (4.70-6.10); White Blood Cell (WBC) Count 8.7 10x3/uL (4.8-10.8)
[2023-09-22] MEDS ORDERED: Morphine 4 MG/ML VIAL ONE ×2 (16:30→17:58)
[2023-09-22] MEDS ORDERED: Ondansetron PF 4 MG/2 ML Vial ONE ×2 (16:31→18:17)
[2023-09-22 16:35] LABS: INR-International Normal Ratio 0.9; Prothrombin Time 12.9 sec (12.0-14.7)
[2023-09-22 16:38] LABS: D-Dimer Test 0.37 *mcg/mL (0.27-0.43)
[2023-09-22 16:44] LABS: Troponin I Less than 0.010 ng/mL (< 0.028)
[2023-09-22] MEDS ORDERED: Nitroglycerin 0.4 MG TAB (25 Tab Bottle) SL PRN (17:21)
[2023-09-22] MEDS ORDERED: Acetaminophen 325 MG TAB PO PRN (17:21)
[2023-09-22 17:33] LABS: Albumin 4.3 g/dL (3.5-5.0)
[2023-09-22 17:34] LABS: Calcium 9.8 mg/dL (7.8-10.44); Chloride 105 mmol/L (98-107); Potassium 3.5 mmol/L (3.5-5.1); Sodium 140 mmol/L (136-145)
[2023-09-22 17:35] LABS: Glucose 135 mg/dL (70-105)
[2023-09-22 17:36] LABS: Globulin 3.1 g/dL (2.4-3.5); Protein, Total 7.4 g/dL (6.0-8.3)
[2023-09-22 17:37] LABS: Anion Gap 15 mmol/L (10-20); Bilirubin, Total 0.3 mg/dL (0.2-1.2); Carbon Dioxide 24 mmol/L (22-29)
[2023-09-22 17:38] LABS: Alkaline Phosphatase 82 U/L (40-110)
[2023-09-22 17:39] LABS: BUN (Urea Nitrogen) 11 mg/dL (8.9-20.6); Calc. Creatinine Clearance 0 mL/min (70-130); Estimated GFR 69
[2023-09-22 17:40] LABS: AST (SGOT) 24 U/L (5-34)
[2023-09-22 17:41] LABS: ALT (SGPT) 36 U/L (8-55)
[2023-09-22 17:48] LABS: Hemoglobin A1c 6.2 % (4.0-6.0)
[2023-09-22 18:36] VITALS: BMI 40.0
[2023-09-22] MEDS ORDERED: Ondansetron ODT 4 MG TAB SL PRN (19:00)
[2023-09-22] MEDS ORDERED: Ondansetron PF 4 MG/2 ML Vial IVP PRN (19:00)
[2023-09-22 19:18] LABS: Troponin I Less than 0.010 ng/mL (< 0.028)
[2023-09-22] MEDS: Nitroglycerin 2% Ointment 1 INCH/1 GM Packet TOP SCH (20:33)
[2023-09-22] MEDS: Morphine 2 MG/ML VIAL SLOW IVP PRN (20:33)
[2023-09-22] MEDS ORDERED: Aspirin 325 mg Enteric Coated Tablet PO SCH (20:45)
[2023-09-22] MEDS ORDERED: Dextrose 5% in Water 1,000 ML IV PRN (20:50)
[2023-09-22] MEDS ORDERED: Glucagon 1 MG/ML KIT IM PRN (20:50)
[2023-09-22] MEDS ORDERED: HumaLOG 300 UNITS/3 ML VIAL SC PRN ×2 (20:50)
[2023-09-22] MEDS ORDERED: Dextrose 50% Abboject 50 ML SYRINGE SLOW IVP PRN (20:50)
[2023-09-22 22:33] LABS: Troponin I Less than 0.010 ng/mL (< 0.028)
[2023-09-23] MEDS: Morphine 2 MG/ML VIAL SLOW IVP PRN ×3 (00:27→13:49)
[2023-09-23 05:31] LABS: #Basophils 0.1 thou/uL (0.0-0.2); #Eosinphils 0.6 thou/uL (0.0-0.7); #Monocytes 0.7 thou/uL (0.11-0.59); %Basophils 0.6 % (0.0-1.0); %Lymphocytes 43.6 % (21.0-51.0); %Monocytes 8.5 % (0.0-10.0); %Neutrophils 38.9 % (42.0-75.0); Hematocrit 44.5 % (42.0-52.0); Hemoglobin 14.7 g/dL (14.0-18.0); Mean Corpuscular Hemoglobin 30.8 pg (27.0-31.0); Mean Corpuscular Volume 93.1 fl (78.0-98.0); Mean Platelet Volume 10.5 fL (7.4-10.4); Platelet Count 258 10x3/uL (130-400); RBC Distribution Width 14.5 % (11.5-14.5); Red Blood Cell (RBC) Count 4.78 mill/uL (4.70-6.10); White Blood Cell (WBC) Count 7.8 10x3/uL (4.8-10.8)
[2023-09-23] MEDS ORDERED: Levothyroxine Sodium 50 MCG TAB PO SCH (06:00)
[2023-09-23 06:01] LABS: ALT (SGPT) 34 U/L (8-55); AST (SGOT) 24 U/L (5-34); Albumin 3.8 g/dL (3.5-5.0); Alkaline Phosphatase 78 U/L (40-110); Anion Gap 14 mmol/L (10-20); BUN (Urea Nitrogen) 12 mg/dL (8.9-20.6); Bilirubin, Total 0.3 mg/dL (0.2-1.2); Calc. Creatinine Clearance 139 mL/min (70-130); Calcium 8.8 mg/dL (7.8-10.44); Carbon Dioxide 24 mmol/L (22-29); Cardiac Risk 4.7 (Less than 4.5); Chloride 106 mmol/L (98-107); Cholesterol 135 mg/dl (< 200 Desired); Estimated GFR 78; Globulin 3.2 g/dL (2.4-3.5); Glucose 135 mg/dL (70-105); HDL Cholesterol 29 mg/dL (>60 Neg Risk); LDL Cholesterol, Calculated 65 mg/dL; Potassium 3.9 mmol/L (3.5-5.1); Sodium 140 mmol/L (136-145); Triglycerides 205 mg/dL (Less than 150)
[2023-09-23] MEDS: Nitroglycerin 2% Ointment 1 INCH/1 GM Packet TOP SCH (07:59)
[2023-09-23] MEDS ORDERED: Nitroglycerin 0.4 MG TAB (25 Tab Bottle) SL PRN (08:02)
[2023-09-23] MEDS ORDERED: Morphine 2 MG/ML VIAL SLOW IVP SCH (08:05)
[2023-09-23] MEDS ORDERED: Aspirin Chewable 81 MG TAB PO SCH (09:00)
[2023-09-23] MEDS ORDERED: Ketorolac Tromethamine 10 MG TAB PO SCH ×2 (09:37→12:00)
[2023-09-23] MEDS ORDERED: Ketorolac Tromethamine 10 MG TAB PO PRN (10:14)
[2023-09-23 16:20] VITALS: BP 133/73; TEMP 98.2
[2023-09-23] MEDS ORDERED: Warfarin Sodium 2.5 MG TAB PO SCH (17:00)
[2023-09-23] MEDS ORDERED: QUEtiapine 100 MG TAB PO SCH ×2 (21:00)
[2023-09-23] MEDS ORDERED: hydrOXYzine Pamoate 25 mg Capsule PO SCH (21:00)
[2023-09-23] MEDS ORDERED: Non-Formulary Item 1 EACH (Hydroxyzine Pamoate [Hydroxyzine Pamoate] 50 MG Capsule) PO SCH (21:00)
[2023-09-24] MEDS ORDERED: Atorvastatin Calcium 40 MG TAB PO SCH (09:00)
[2023-09-24] MEDS ORDERED: DULoxetine 30 MG CAP PO SCH (09:00)
[2023-09-24] MEDS ORDERED: lamoTRIgine 25 MG TAB PO SCH (09:00)
[2023-09-24] MEDS ORDERED: DULoxetine 60 MG CAP PO SCH (09:00)
[2023-09-24] MEDS ORDERED: Non-Formulary Item 1 EACH (Amiodarone Hcl [Pacerone] 100 MG Tablet) PO SCH (09:00)
[2023-09-24] MEDS ORDERED: Amiodarone 200 MG TAB PO SCH (09:00)
== END 2023-09-23 17:04 | disposition home or self-care (01) ==
LOC: ERS 15:45 → 2SW 17:21
PROVIDERS: ADMIT Family Medicine; ATTEND Family Medicine
PROC: B246ZZ4 Ultrasonography of Right and Left Heart, Transesophageal (ICD-10-PCS; principal; 2023-09-23)
DX: I25.118 Atherosclerotic heart disease of native coronary artery with other forms of angina pectoris (principal); E03.9 Hypothyroidism, unspecified; I48.0 Paroxysmal atrial fibrillation; I11.0 Hypertensive heart disease with heart failure; I50.32 Chronic diastolic (congestive) heart failure; E78.5 Hyperlipidemia, unspecified; D53.9 Nutritional anemia, unspecified; F31.9 Bipolar disorder, unspecified; Z87.891 Personal history of nicotine dependence; Z95.1 Presence of aortocoronary bypass graft; Z88.2 Allergy status to sulfonamides; Z88.8 Allergy status to other drugs, medicaments and biological substances; Z88.0 Allergy status to penicillin; Z91.013 Allergy to seafood; Z79.01 Long term (current) use of anticoagulants; Z79.82 Long term (current) use of aspirin; Z79.899 Other long term (current) drug therapy
CPT/HCPCS: 36415; 36416; 71045; 78452; 80053; 80061; 83036; 84439; 84443; 84484; 85025; 85379; 85610; 85730; 93005; 93010; 93017; 93306; 94760; 96374; 96375; 96376; A9502; G0378; J0153; J2270; J2272; J2405

== ENCOUNTER 2024-02-23 07:10 | Inpatient (IN) | payer SELFPAY ==
[2024-02-23 07:17] VITALS: BMI 41.4
[2024-02-23] MEDS ORDERED: Acetaminophen 650 MG Suppository PR PRN (07:30)
[2024-02-23] MEDS ORDERED: Morphine 4 MG/ML VIAL SLOW IVP PRN (07:30)
[2024-02-23] MEDS ORDERED: Ondansetron ODT 4 MG TAB PO PRN (07:30)
[2024-02-23] MEDS ORDERED: Nitroglycerin 0.4 MG TAB (25 Tab Bottle) SL PRN (07:34)
[2024-02-23] MEDS: Morphine 4 MG/ML VIAL SLOW IVP SCH (08:14)
[2024-02-23] MEDS: Famotidine 20 MG TAB PO SCH (08:15)
[2024-02-23] MEDS: Aspirin Chewable 81 MG TAB PO SCH ×2 (08:15→11:23)
[2024-02-23] MEDS: Ondansetron PF 4 MG/2 ML Vial IVP PRN (08:27)
[2024-02-23 08:50] LABS: Troponin I Less than 0.010 ng/mL (< 0.028)
[2024-02-23] MEDS ORDERED: Non-Formulary Item 1 EACH (Amiodarone Hcl [Pacerone] 100 MG Tablet) PO SCH (09:00)
[2024-02-23] MEDS ORDERED: Enoxaparin 120 MG/0.8 ML SYRINGE SC SCH (09:00)
[2024-02-23] MEDS ORDERED: DULoxetine 60 MG CAP PO SCH (09:00)
[2024-02-23 09:11] LABS: Free T4 (Free Thyroxine) 0.43 ng/dL (0.70-1.48); Thyroid Stimulating Hormone 48.5092 uIU/mL (0.35-4.94)
[2024-02-23] MEDS: Amiodarone 200 MG TAB PO SCH (11:22)
[2024-02-23] MEDS: Atorvastatin Calcium 40 MG TAB PO SCH (11:23)
[2024-02-23] MEDS: DULoxetine 30 MG CAP PO SCH (11:23)
[2024-02-23] MEDS: lamoTRIgine 25 MG TAB PO SCH (11:23)
[2024-02-23 11:27] LABS: Anion Gap 14 mmol/L (10-20); BUN (Urea Nitrogen) 7 mg/dL (8.9-20.6); Calc. Creatinine Clearance 132 mL/min (70-130); Calcium 9.2 mg/dL (7.8-10.44); Carbon Dioxide 27 mmol/L (22-29); Chloride 104 mmol/L (98-107); Estimated GFR 76; Glucose 96 mg/dL (70-105); Sodium 141 mmol/L (136-145)
[2024-02-23 11:35] LABS: Troponin I Less than 0.010 ng/mL (< 0.028)
[2024-02-23] MEDS: Lisinopril 5 MG TAB PO SCH (11:35)
[2024-02-23] MEDS: Indomethacin 75 mg SR Capsule PO SCH (12:37)
[2024-02-23] MEDS: Morphine 2 MG/ML VIAL SLOW IVP PRN (13:16)
[2024-02-23] MEDS: Nitroglycerin 2% Ointment 1 INCH/1 GM Packet TOP SCH (16:16)
[2024-02-23] MEDS: Ketorolac Tromethamine 30 MG (1 mL) VIAL IVP SCH (17:51)
[2024-02-23] MEDS: Lidocaine 2% Viscous Solution 20 ML, Aluminum & Magnesium Hydroxide 30 ML, Donnatal Eli... SSW SCH (18:06)
[2024-02-23] MEDS: Sodium Chloride 0.9% 1,000 ML IV SCH ×2 (19:03→20:00)
[2024-02-23 19:57] LABS: #Basophils 0.06 10x3/uL (0.0-0.2); %Basophils 0.8 % (0.0-1.0); %Lymphocytes 44.1 % (21.0-51.0); %Monocytes 9.6 % (0.0-10.0); %Neutrophils 43.4 % (42.0-75.0); Hematocrit 36.2 % (42.0-52.0); Hemoglobin 12.1 g/dL (14.0-18.0); Mean Corpuscular HGB CONC 33.4 g/dL (32.0-36.0); Mean Corpuscular Hemoglobin 30.9 pg (27.0-31.0); Mean Corpuscular Volume 92.6 fL (78.0-98.0); Mean Platelet Volume 10.3 fL (7.4-10.4); Platelet Count 197 10x3/uL (130-400); RBC Distribution Width 13.8 % (11.5-14.5); Red Blood Cell (RBC) Count 3.91 mill/uL (4.70-6.10)
[2024-02-23 20:14] LABS: Lactic Acid 2.5 mmol/L (0.5-2.2)
[2024-02-23 20:20] LABS: ALT (SGPT) 37 U/L (8-55); AST (SGOT) 31 U/L (5-34); Albumin 3.5 g/dL (3.5-5.0); Alkaline Phosphatase 57 U/L (40-110); Anion Gap 16 mmol/L (10-20); BUN (Urea Nitrogen) 11 mg/dL (8.9-20.6); Bilirubin, Total 0.4 mg/dL (0.2-1.2); Calc. Creatinine Clearance 94 mL/min (70-130); Calcium 8.4 mg/dL (7.8-10.44); Carbon Dioxide 22 mmol/L (22-29); Chloride 107 mmol/L (98-107); Estimated GFR 50; Globulin 2.5 g/dL (2.4-3.5); Glucose 117 mg/dL (70-105); Potassium 4.2 mmol/L (3.5-5.1); Sodium 141 mmol/L (136-145)
[2024-02-23 20:23] LABS: Troponin I Less than 0.010 ng/mL (< 0.028)
[2024-02-23] MEDS: Acetaminophen 325 MG TAB PO PRN (20:45)
[2024-02-23] MEDS: hydrOXYzine Pamoate 25 mg Capsule PO SCH (20:46)
[2024-02-23] MEDS: Enoxaparin 40 MG (0.4 mL) SYRINGE SC SCH (20:54)
[2024-02-23] MEDS ORDERED: Non-Formulary Item 1 EACH (Hydroxyzine Pamoate [Hydroxyzine Pamoate] 50 MG Capsule) PO SCH (21:00)
[2024-02-23] MEDS ORDERED: QUEtiapine 100 MG TAB PO SCH (21:00)
[2024-02-23] MEDS: QUEtiapine 100 MG TAB PO SCH (21:05)
[2024-02-23] MEDS: Lactated Ringer's 1,000 ML IV SCH ×2 (21:49→22:09)
[2024-02-23] MEDS: NOREPINEPHRINE 8 MG/250 ML-D5W 250 ML IVPB SCH (22:21)
[2024-02-23] MEDS: Lactated Ringer's 500 ML IV SCH (22:55)
[2024-02-24] MEDS: Morphine 2 MG/ML VIAL SLOW IVP PRN (01:13)
[2024-02-24 04:54] LABS: #Basophils 0.04 10x3/uL (0.0-0.2); %Basophils 0.5 % (0.0-1.0); %Eosinophils 1.4 % (0.0-10.0); %Lymphocytes 34.7 % (21.0-51.0); %Neutrophils 56.1 % (42.0-75.0); Hematocrit 37.4 % (42.0-52.0); Hemoglobin 12.3 g/dL (14.0-18.0); Mean Corpuscular HGB CONC 32.9 g/dL (32.0-36.0); Mean Corpuscular Hemoglobin 31.1 pg (27.0-31.0); Mean Corpuscular Volume 94.7 fL (78.0-98.0); Mean Platelet Volume 10.8 fL (7.4-10.4); Platelet Count 205 10x3/uL (130-400); RBC Distribution Width 13.5 % (11.5-14.5); Red Blood Cell (RBC) Count 3.95 mill/uL (4.70-6.10)
[2024-02-24 05:01] LABS: Amphetamine Not Detected (NotDetected); Barbiturates Screen Not Detected (NotDetected); Benzodiazepine Screen Not Detected (NotDetected); Cocaine Metabolite Screen Not Detected (NotDetected); Methadone Not Detected (NotDetected); Methamphetamine Not Detected (NotDetected); Opiate Screen Detected (NotDetected); Oxycodone Screen Not Detected (NotDetected); Phencyclidine (PCP) Not Detected (NotDetected); THC/Cannabinoid Screen Not Detected (NotDetected); Tricyclic Screen Detected (NotDetected)
[2024-02-24 05:04] LABS: INR-International Normal Ratio 1.1; PTT 37.5 sec (22.9-36.1); Prothrombin Time 14.3 sec (12.0-14.7)
[2024-02-24 05:18] LABS: Anion Gap 12 mmol/L (10-20); BUN (Urea Nitrogen) 12 mg/dL (8.9-20.6); Calc. Creatinine Clearance 108 mL/min (70-130); Calcium 8.4 mg/dL (7.8-10.44); Carbon Dioxide 27 mmol/L (22-29); Cardiac Risk 4.2 (Less than 4.5); Chloride 106 mmol/L (98-107); Cholesterol 97 mg/dl (< 200 Desired); Estimated GFR 59; Glucose 96 mg/dL (70-105); HDL Cholesterol 23 mg/dL (>60 Neg Risk); LDL Cholesterol, Calculated 41 mg/dL; Potassium 4.3 mmol/L (3.5-5.1); Sodium 141 mmol/L (136-145); Triglycerides 167 mg/dL (Less than 150)
[2024-02-24] MEDS ORDERED: Levothyroxine Sodium 75 MCG TAB PO SCH (06:00)
[2024-02-24] MEDS: Levothyroxine Sodium 25 MCG TAB PO SCH (06:11)
[2024-02-24] MEDS: Lisinopril 5 MG TAB PO SCH (08:24)
[2024-02-24 08:26] VITALS: BP 123/88
[2024-02-24] MEDS: Pantoprazole 40 MG VIAL IVP SCH (09:59)
[2024-02-24 13:42] VITALS: TEMP 97.4
[2024-02-24 14:55] LABS: Troponin I Less than 0.010 ng/mL (< 0.028)
== END 2024-02-24 14:11 | disposition left against medical advice (07) | DRG 313 ==
LOC: 2SW 07:13 → CCU 19:34 → OBSVTOIN 21:42
PROVIDERS: ADMIT Student in an Organized Health Care Education/Training Program; ATTEND Internal Medicine
DX: R07.89 Other chest pain (principal); I42.9 Cardiomyopathy, unspecified; I25.10 Atherosclerotic heart disease of native coronary artery without angina pectoris; F31.9 Bipolar disorder, unspecified; R00.1 Bradycardia, unspecified; I95.9 Hypotension, unspecified; E78.00 Pure hypercholesterolemia, unspecified; I48.0 Paroxysmal atrial fibrillation; E03.9 Hypothyroidism, unspecified; Z88.0 Allergy status to penicillin; Z88.2 Allergy status to sulfonamides; Z91.013 Allergy to seafood; Z86.718 Personal history of other venous thrombosis and embolism; Z95.1 Presence of aortocoronary bypass graft; Z87.891 Personal history of nicotine dependence; Z79.01 Long term (current) use of anticoagulants; Z79.82 Long term (current) use of aspirin
CPT/HCPCS: 36415; 80048; 80061; 80306; 83605; 83690; 83735; 83880; 84439; 84443; 84481; 84484; 85025; 85379; 85610; 85730; 87040; 93005; 93010; 94760; C9113; J1650; J1885; J2270; J2272; J2405; J7050; J7120; Q0177

== ENCOUNTER 2024-03-14 11:35 | Emergency (ER) | payer SELFPAY ==
[2024-03-14] MEDS ORDERED: Acetaminophen 500 MG TAB ONE (12:03)
[2024-03-14 12:06] LABS: #Basophils 0.04 10x3/uL (0.0-0.2); %Basophils 0.5 % (0.0-1.0); %Eosinophils 3.2 % (0.0-10.0); %Lymphocytes 30.3 % (21.0-51.0); %Neutrophils 58.8 % (42.0-75.0); Hematocrit 41.8 % (42.0-52.0); Hemoglobin 14.7 g/dL (14.0-18.0); Mean Corpuscular HGB CONC 35.2 g/dL (32.0-36.0); Mean Corpuscular Hemoglobin 31.5 pg (27.0-31.0); Mean Corpuscular Volume 89.5 fL (78.0-98.0); Platelet Count 326 10x3/uL (130-400); RBC Distribution Width 13.7 % (11.5-14.5); Red Blood Cell (RBC) Count 4.67 mill/uL (4.70-6.10)
[2024-03-14 12:27] LABS: Troponin I Less than 0.010 ng/mL (< 0.028)
[2024-03-14 12:43] LABS: ALT (SGPT) 42 U/L (8-55); AST (SGOT) 33 U/L (5-34); Albumin 4.2 g/dL (3.5-5.0); Alkaline Phosphatase 71 U/L (40-110); Anion Gap 16 mmol/L (10-20); BUN (Urea Nitrogen) 8 mg/dL (8.9-20.6); Bilirubin, Total 0.5 mg/dL (0.2-1.2); Calc. Creatinine Clearance 0 mL/min (70-130); Calcium 9.8 mg/dL (7.8-10.44); Carbon Dioxide 24 mmol/L (22-29); Chloride 101 mmol/L (98-107); Estimated GFR 86; Globulin 3.7 g/dL (2.4-3.5); Glucose 120 mg/dL (70-105); Lipase 29 U/L (8-78); Potassium 3.6 mmol/L (3.5-5.1); Protein, Total 7.9 g/dL (6.0-8.3); Sodium 137 mmol/L (136-145)
[2024-03-14] MEDS ORDERED: Ketorolac Tromethamine 30 MG (1 mL) VIAL ONE (12:43)
== END 2024-03-14 13:00 | disposition left against medical advice (07) ==
LOC: ERS 11:35
DX: R07.9 Chest pain, unspecified (principal); Z53.21 Procedure and treatment not carried out due to patient leaving prior to being seen by health care provider; I25.10 Atherosclerotic heart disease of native coronary artery without angina pectoris; I25.2 Old myocardial infarction; I48.91 Unspecified atrial fibrillation; E11.9 Type 2 diabetes mellitus without complications; I11.0 Hypertensive heart disease with heart failure; I50.9 Heart failure, unspecified; F17.290 Nicotine dependence, other tobacco product, uncomplicated; Z55.6 Problems related to health literacy; Z79.899 Other long term (current) drug therapy
CPT/HCPCS: 71045; 80053; 83690; 84484; 85025; 93005; 94760; 96372; J1885

== ENCOUNTER 2024-03-25 21:42 | Emergency (ER) | payer SELFPAY ==
[2024-03-25] MEDS ORDERED: Aspirin Chewable 81 MG TAB ONE (22:22)
== END 2024-03-25 22:52 | disposition left against medical advice (07) ==
LOC: ERS 21:42
DX: R07.9 Chest pain, unspecified (principal); I25.2 Old myocardial infarction; I48.91 Unspecified atrial fibrillation; I11.0 Hypertensive heart disease with heart failure; I50.9 Heart failure, unspecified; E11.9 Type 2 diabetes mellitus without complications; F17.290 Nicotine dependence, other tobacco product, uncomplicated
CPT/HCPCS: 71045; 93005

== ENCOUNTER 2024-04-05 05:18 | Emergency (ER) | payer SELFPAY ==
[2024-04-05] MEDS ORDERED: Ondansetron PF 4 MG/2 ML Vial ONE (05:30)
[2024-04-05] MEDS ORDERED: Morphine 4 MG/ML VIAL ONE ×2 (05:30→05:36)
[2024-04-05 05:57] LABS: #Basophils 0.09 10x3/uL (0.0-0.2); %Eosinophils 5.9 % (0.0-10.0); %Lymphocytes 33.4 % (21.0-51.0); %Neutrophils 53.4 % (42.0-75.0); Hematocrit 38.9 % (42.0-52.0); Hemoglobin 13.5 g/dL (14.0-18.0); Mean Corpuscular HGB CONC 34.7 g/dL (32.0-36.0); Mean Corpuscular Hemoglobin 32.1 pg (27.0-31.0); Mean Corpuscular Volume 92.4 fL (78.0-98.0); Mean Platelet Volume 10.2 fL (7.4-10.4); Platelet Count 234 10x3/uL (130-400); RBC Distribution Width 14.3 % (11.5-14.5); Red Blood Cell (RBC) Count 4.21 mill/uL (4.70-6.10)
[2024-04-05 06:18] LABS: ALT (SGPT) 34 U/L (8-55); AST (SGOT) 26 U/L (5-34); Albumin 4.1 g/dL (3.5-5.0); Alkaline Phosphatase 66 U/L (40-110); Anion Gap 16 mmol/L (10-20); BUN (Urea Nitrogen) 10 mg/dL (8.9-20.6); Bilirubin, Total 0.4 mg/dL (0.2-1.2); Calc. Creatinine Clearance 0 mL/min (70-130); Calcium 9.5 mg/dL (7.8-10.44); Carbon Dioxide 22 mmol/L (22-29); Chloride 103 mmol/L (98-107); Estimated GFR 83; Globulin 3.3 g/dL (2.4-3.5); Glucose 77 mg/dL (70-105); Potassium 3.8 mmol/L (3.5-5.1); Protein, Total 7.4 g/dL (6.0-8.3); Sodium 137 mmol/L (136-145)
[2024-04-05 06:21] LABS: Troponin I Less than 0.010 ng/mL (< 0.028)
[2024-04-05] MEDS ORDERED: Acetaminophen 325 MG TAB ONE (08:33)
[2024-04-05 09:47] LABS: Troponin I Less than 0.010 ng/mL (< 0.028)
== END 2024-04-05 09:23 | disposition left against medical advice (07) ==
LOC: ERS 05:18
DX: R07.89 Other chest pain (principal); E11.9 Type 2 diabetes mellitus without complications; I11.0 Hypertensive heart disease with heart failure; I50.9 Heart failure, unspecified; I48.91 Unspecified atrial fibrillation; F17.290 Nicotine dependence, other tobacco product, uncomplicated; Z55.6 Problems related to health literacy
CPT/HCPCS: 36415; 71045; 80053; 83735; 83880; 84484; 85025; 93005; 96374; J2270; J2405

== ENCOUNTER 2024-04-14 17:02 | Emergency (ER) | payer SELFPAY | END 2024-04-14 18:38 | disposition left against medical advice (07) | LOC: ERS 17:02 | DX: R07.9 Chest pain, unspecified (principal); I10 Essential (primary) hypertension; E11.9 Type 2 diabetes mellitus without complications; F17.290 Nicotine dependence, other tobacco product, uncomplicated; Z53.21 Procedure and treatment not carried out due to patient leaving prior to being seen by health care provider | CPT/HCPCS: 71045; 80053; 83880; 84484; 85025; 85610; 85730; 93005 ==

== ENCOUNTER 2024-06-03 16:26 | Emergency (ER) | payer SELFPAY ==
[2024-06-03 17:51] LABS: #Basophils 0.05 10x3/uL (0.0-0.2); %Basophils 0.6 % (0.0-1.0); %Eosinophils 6.1 % (0.0-10.0); %Lymphocytes 36.5 % (21.0-51.0); %Monocytes 6.9 % (0.0-10.0); %Neutrophils 49.7 % (42.0-75.0); Hemoglobin 14.2 g/dL (14.0-18.0); Mean Corpuscular HGB CONC 33.8 g/dL (32.0-36.0); Mean Corpuscular Hemoglobin 31.5 pg (27.0-31.0); Mean Corpuscular Volume 93.1 fL (78.0-98.0); Platelet Count 293 10x3/uL (130-400); RBC Distribution Width 13.7 % (11.5-14.5); Red Blood Cell (RBC) Count 4.51 mill/uL (4.70-6.10)
[2024-06-03 18:05] LABS: ALT (SGPT) 29 U/L (8-55); AST (SGOT) 21 U/L (5-34); Albumin 3.8 g/dL (3.5-5.0); Alkaline Phosphatase 63 U/L (40-110); Anion Gap 11 mmol/L (10-20); BUN (Urea Nitrogen) 6 mg/dL (8.9-20.6); Bilirubin, Total 0.3 mg/dL (0.2-1.2); Calc. Creatinine Clearance 0 mL/min (70-130); Calcium 9.2 mg/dL (7.8-10.44); Carbon Dioxide 26 mmol/L (22-29); Chloride 106 mmol/L (98-107); Estimated GFR 93; Globulin 3.3 g/dL (2.4-3.5); Glucose 98 mg/dL (70-105); Potassium 4.1 mmol/L (3.5-5.1); Protein, Total 7.1 g/dL (6.0-8.3); Sodium 139 mmol/L (136-145)
[2024-06-03 18:09] LABS: Troponin I Less than 0.010 ng/mL (< 0.028)
[2024-06-03] MEDS ORDERED: Morphine 4 MG/ML VIAL ONE (18:24)
== END 2024-06-03 19:18 | disposition home or self-care (01) ==
LOC: ERS 16:26
DX: R07.9 Chest pain, unspecified (principal); I11.0 Hypertensive heart disease with heart failure; I50.9 Heart failure, unspecified; E11.9 Type 2 diabetes mellitus without complications; I48.91 Unspecified atrial fibrillation; Z79.899 Other long term (current) drug therapy
CPT/HCPCS: 36415; 71046; 80053; 83880; 84484; 85025; 93005; 96372; J2272

== ENCOUNTER 2025-06-27 11:55 | Emergency (ER) | payer SELFPAY ==
[2025-06-27 12:19] LABS: #Basophils 0.08 10x3/uL (0.0-0.2); #Eosinophils 0.15 10x3/uL (0.0-0.7); #Monocytes 1.01 10x3/uL (0.11-0.59); #Neutrophils 4.89 10x3/uL (1.40-6.50); %Basophils 0.8 % (0.0-1.0); %Eosinophils 1.5 % (0.0-10.0); %Lymphocytes 37.2 % (21.0-51.0); %Monocytes 10.3 % (0.0-10.0); %Neutrophils 49.8 % (42.0-75.0); Hematocrit 39.6 % (42.0-52.0); Hemoglobin 13.7 g/dL (14.0-18.0); Mean Corpuscular Hemoglobin 31.6 pg (27.0-31.0); Mean Corpuscular Volume 91.5 fL (78.0-98.0); Platelet Count 252 10x3/uL (130-400); Red Blood Cell (RBC) Count 4.33 mill/uL (4.70-6.10); White Blood Cell (WBC) Count 9.83 10x3/uL (4.8-10.8)
[2025-06-27 12:49] LABS: ALT (SGPT) 67 U/L (Less than 45); AST (SGOT) 63 U/L (11-34); Albumin 4.2 g/dL (3.1-4.5); Alkaline Phosphatase 72 U/L (40-110); Anion Gap 17 mmol/L (10-20); BUN (Urea Nitrogen) 14 mg/dL (8.9-20.6); Bilirubin, Total 0.3 mg/dL (0.3-1.2); Calc. Creatinine Clearance 0 mL/min (70-130); Calcium 9.3 mg/dL (7.8-10.44); Carbon Dioxide 24 mmol/L (22-29); Chloride 101 mmol/L (98-107); Globulin 3.0 g/dL (2.4-3.5); Glucose 117 mg/dL (70-105); Lipase 28 U/L (8-78); Potassium 3.9 mmol/L (3.5-5.1); Sodium 138 mmol/L (136-145)
[2025-06-27] MEDS ORDERED: Mag-Al 1200 mg/1200 mg/30 ML UDCUP ONE (13:30)
[2025-06-27] MEDS ORDERED: Lidocaine Viscous Sol 2% 15 ml UD Cup ONE (13:30)
[2025-06-27] MEDS ORDERED: Pantoprazole 40 MG VIAL ONE (13:30)
== END 2025-06-27 16:46 | disposition home or self-care (01) ==
LOC: ERS 11:55
DX: R07.2 Precordial pain (principal); I11.0 Hypertensive heart disease with heart failure; I50.9 Heart failure, unspecified; I48.91 Unspecified atrial fibrillation; I25.2 Old myocardial infarction; I25.10 Atherosclerotic heart disease of native coronary artery without angina pectoris; F17.290 Nicotine dependence, other tobacco product, uncomplicated; Z86.718 Personal history of other venous thrombosis and embolism; Z79.82 Long term (current) use of aspirin; Z79.899 Other long term (current) drug therapy
CPT/HCPCS: 71045; 80053; 83690; 83880; 84484; 85025; 93005; 94760; 96374; 96375; 96376; J2270; J2470

== ENCOUNTER 2025-09-11 16:07 | Emergency (ER) | payer SELFPAY ==
[2025-09-11 16:31] LABS: #Basophils 0.05 10x3/uL (0.0-0.2); #Eosinophils 0.08 10x3/uL (0.0-0.7); #Monocytes 0.60 10x3/uL (0.11-0.59); #Neutrophils 3.59 10x3/uL (1.40-6.50); %Basophils 0.7 % (0.0-1.0); %Eosinophils 1.1 % (0.0-10.0); %Lymphocytes 41.5 % (21.0-51.0); %Monocytes 8.1 % (0.0-10.0); %Neutrophils 48.3 % (42.0-75.0); Hematocrit 43.5 % (42.0-52.0); Hemoglobin 14.9 g/dL (14.0-18.0); Mean Corpuscular Hemoglobin 31.2 pg (27.0-31.0); Mean Corpuscular Volume 91.2 fL (78.0-98.0); Platelet Count 263 10x3/uL (130-400); Red Blood Cell (RBC) Count 4.77 mill/uL (4.70-6.10); White Blood Cell (WBC) Count 7.42 10x3/uL (4.8-10.8)
[2025-09-11 16:43] LABS: ALT (SGPT) 83 U/L (Less than 45); AST (SGOT) 62 U/L (11-34); Albumin 4.2 g/dL (3.1-4.5); Alkaline Phosphatase 74 U/L (40-110); Anion Gap 15 mmol/L (10-20); BUN (Urea Nitrogen) 7 mg/dL (8.9-20.6); Bilirubin, Total 0.4 mg/dL (0.3-1.2); Calc. Creatinine Clearance 0 mL/min (70-130); Calcium 9.2 mg/dL (7.8-10.44); Carbon Dioxide 23 mmol/L (22-29); Chloride 103 mmol/L (98-107); Globulin 3.4 g/dL (2.4-3.5); Glucose 149 mg/dL (70-105); Potassium 3.9 mmol/L (3.5-5.1); Sodium 137 mmol/L (136-145)
== END 2025-09-11 18:06 | disposition home or self-care (01) ==
LOC: ERS 16:07
DX: R07.9 Chest pain, unspecified (principal); E11.9 Type 2 diabetes mellitus without complications; I11.0 Hypertensive heart disease with heart failure; I50.9 Heart failure, unspecified; I48.91 Unspecified atrial fibrillation; I25.10 Atherosclerotic heart disease of native coronary artery without angina pectoris; I25.2 Old myocardial infarction; F17.290 Nicotine dependence, other tobacco product, uncomplicated; Z86.718 Personal history of other venous thrombosis and embolism
CPT/HCPCS: 71045; 80053; 84484; 85025; 93005